=== PATIENT | female | born 1965 | race Caucasian/White ===

== ENCOUNTER 2024-04-19 14:09 | Emergency (ER) | payer MEDICAID, SELFPAY ==
[2024-04-19] VITALS (25 sets, daily range): BP systolic 80–123; BP diastolic 51–75; PULSE 102–120; TEMP 36.9; O2SAT 95–104; BMI 67.3
--- NOTE | 2024-04-19 15:03 | ECG_ITS ---
[facility] Test Date: 2024-04-19 Pat Name: MATTHEW SHINE Department: Room: - Gender: Female Coverage Analyst: : 1965 Requested By: 1860 Order Number: [id number] Reading MD: LEXI MARSH Measurements Intervals [place] Rate: 110 P: TN: QRS: QRSD: 160 T: QT: QTc: -[id number] Interpretive Statements Regular rhythm w/ RBBB, can't exclude atrial flutter. Electronically Signed On 04-19-2024 21:03:19 EST by LEXI MARSH
--- NOTE | 2024-04-19 15:06 | CT_ITS ---
[place] [id number] Patient Name: MATTHEW SHINE MRN: [id number] date: 1965 Sex: F Assigned Patient Location: ER Current Patient Location: ER Accession/Order Number: [id number] Exam Date: 04/19/2024 15:50 Report Date: 04/19/2024 16:27 At the request of: EMILY MORTON Procedure: CT chest wo con EXAMINATION: CT chest wo con, 04/19/2024 3:50 PM EST HISTORY: abn chest xray COMPARISON: Chest radiograph 08/22/2020, CT abdomen and pelvis 01/16/2021 TECHNIQUE: CT scan of the chest was performed without IV contrast. CT dose reduction technique was used, including Automated Exposure Control. FINDINGS: TUBES AND IMPLANTS: Tracheostomy tube CHEST: CHEST WALL AND LOWER NECK: Unremarkable. MEDIASTINUM AND CHRISTIAN: No evidence of bulky lymphadenopathy. BONES: No suspicious lesions. Multilevel degenerative changes of the spine. AORTA: No definite aneurysm PULMONARY ARTERIES: Pulmonary trunk appears dilated measuring approximately 3 centimeters CORONARY ARTERIES: Severe coronary artery calcifications and/or stents. HEART: Severe cardiomegaly with large pericardial effusion measuring 2.5 centimeters in thickness LUNG AND AIRWAYS: Confluent opacities seen in the left lower lobe . Patchy groundglass opacities are seen in the left upper lobe. A 7 millimeter right upper lobe subpleural nodule. PLEURA: Small left pleural effusion. UPPER ABDOMEN: No definite acute finding CT/CT chest wo con IMPRESSION: 1. Examination is moderately limited due to technical factors related to patient's body habitus. 2. Confluent airspace disease seen in the left lower lobe with patchy groundglass opacities in the left upper lobe. Small left pleural effusion. These findings are concerning for pneumonia. 3. Severe cardiomegaly with large pericardial effusion measuring 2.5 centimeters in thickness. 4. A 7 millimeter right upper lobe subpleural nodule. CT follow-up in 6-12 months is recommended per Fleischner criteria. 5. Pulmonary trunk appears dilated suggesting pulmonary hypertension. Electronically authenticated by: ETHAN LUDWIG Date: 04/19/2024 16:27
[2024-04-19 15:10] LABS: Basophils Absolute Auto 0.1 10^3/uL (0.0-0.1); Basophils Percent Auto 0.8 % (0.2-2.0); Eosinophils Absolute Auto 0.4 10^3/uL (0.0-0.7); Hematocrit 28.5 % (36.0-48.0); Hemoglobin 8.5 g/dL (12.0-16.0); Immature Granulocytes Abs Auto 0.11 10^3/uL (0.00-0.03); Immature Granulocytes Pct Auto 1.1 % (0.0-0.5); Lymphocytes Absolute Auto 0.9 10^3/uL (1.2-3.8); Lymphocytes Percent Auto 8.4 % (20.5-60.0); Mean Corpuscular HGB Conc 29.8 g/dL (29.9-35.2); Mean Corpuscular Hemoglobin 29.1 pg (26.7-34.0); Mean Corpuscular Volume 97.6 fL (81.0-99.0); Mean Platelet Volume 11.1 fL (9.5-13.5); Monocytes Absolute Auto 0.8 10^3/uL (0.3-0.8); Monocytes Percent Auto 8.3 % (1.7-12.0); Neutrophils Absolute Auto 7.8 10^3/uL (1.4-6.5); Neutrophils Percent Auto 77.4 % (43.0-75.0); Platelet Count 216 10^3/uL (150-450); Red Blood Count 2.92 10^6/uL (4.20-5.40); White Blood Count 10.1 10^3/uL (4.0-11.0)
--- NOTE | 2024-04-19 15:12 | PC.NURSE ---
Trach with mechanical vent on arrival, skin pink and warm and respirations even and non labored. Pulse Ox. 97% on vent set at 25%.
[2024-04-19 15:36] LABS: Lactate/Lactic Acid 1.4 mmol/L (0.4-2.0)
[2024-04-19 15:38] LABS: Anion Gap 18.9; BUN Creatinine Ratio 8.7; Carbon Dioxide 23.6 mmol/L (21.0-32.0); Chloride 94 mmol/L (98-107); Estimated GFR (African America 8 (>=60 mL/min/1.73m^2); Estimated GFR (Non-African Ame 7 (>=60 mL/min/1.73m^2); Glucose 134 mg/dL (74-106); Potassium 4.5 mmol/L (3.5-5.1); Sodium 132 mmol/L (136-145)
[2024-04-19 15:49] LABS: INR 1.24; Partial Thromboplastin Time 33.8 sec (22.3-36.2); Prothrombin Time 12.9 sec (9.0-11.6)
[2024-04-19 15:52] LABS: Troponin I High Sensitivity 10.1 pg/mL (4.0-51.3)
[2024-04-19] MEDS: 0.9 % SODIUM CHLORIDE 500 ML IV (16:05)
--- NOTE | 2024-04-19 16:27 | ED_ITS ---
HPI HPI - General Adult General Chief complaint: Shortness of Breath/Dyspnea Stated complaint: Respiratory distress Time Seen by Provider: 04/19/24 14:10 Source: medical record Mode of arrival: ambulance Limitations: altered mental status History of Present Illness HPI narrative: 59-year-old female to the emergency department with chief complaint of hypotension, hypoxia, missing dialysis. Patient is a severely morbidly obese vent dependent patient from [facility]. She has been a resident there for 2 years. She receives dialysis 5 days a week. She is only received a few partial treatments over the last 2 weeks per penitentiary report. She is DNRCC. Patient provides no history. Related Data Previous Rx's ?Medication ?Instructions ?Recorded levofloxacin 750 mg tablet 750 mg PO DAILY 7 days #7 tabs 04/19/24 Allergies Allergy/AdvReac Type Severity Reaction Status Date / Time fentanyl Allergy Unknown Unknown Verified 04/19/24 14:17 Gadolinium-Containing Allergy Unknown Unknown Verified 04/19/24 14:17 Contrast Medi Iodinated Contrast Media Allergy Unknown Unknown Verified 04/19/24 14:17 morphine Allergy Unknown Unknown Verified 04/19/24 14:17 piperacillin (From Zosyn) Allergy Unknown Unknown Verified 04/19/24 14:17 tazobactam (From Zosyn) Allergy Unknown Unknown Verified 04/19/24 14:17 Opioid HPI Opioid Management Most Recent Opioid Data: No Data to Display Review of Systems ROS Status of ROS unobtainable due to medical condition Exam Narrative Exam Narrative: VITALS: I have reviewed the triage vital signs. GENERAL: Chronically ill-appearing severely morbidly obese adult female with tracheostomy on ventilator NEURO: Alert. Moves all extremities. EYES: PERRL. No scleral icterus or conjunctival injection. No discharge. HENT: Normocephalic, atraumatic. Hearing is grossly intact. Nares grossly patent and without discharge. Mucous membranes moist. NECK: No JVD. Patient moves neck without restriction. Healthy appearing tracheostomy with tube in place CARDIO: Rhythm regular. Normal rate. No murmur, rub, or gallop. Pulses equal bilaterally in the upper and lower extremity. No lower extremity edema. PULM: Diminished at the bases bilaterally. GI/: Abdomen is soft and non-tender. Normoactive bowel sounds. EXTREMITIES: Symmetric muscle bulk. No joint swelling. No clubbing, cyanosis, or deformity. IO in the RLE. SKIN: Warm and dry. Normal turgor. No rash or lesions appreciated. Constitutional Vital Signs, click to edit/add: Last Vital Signs Temp 98.5 F 04/19/24 14:09 Pulse 106 H 04/19/24 16:03 Resp 15 04/19/24 16:03 BP 123/51 04/19/24 16:03 Pulse Ox 98 04/19/24 16:03 O2 Del Method Mechanical Ventilator 04/19/24 15:09 FiO2 25 04/19/24 15:09 Course Vital Signs Vital signs: Vital Signs Temperature 98.5 F 04/19/24 14:09 Pulse Rate 115 H 04/19/24 14:09 Respiratory Rate 29 H 04/19/24 14:09 Blood Pressure 106/53 04/19/24 14:09 Pulse Oximetry 95 04/19/24 14:09 Oxygen Delivery Method Mechanical Ventilator 04/19/24 14:09 Temperature 98.5 F 04/19/24 14:09 Pulse Rate 106 H 04/19/24 16:03 Respiratory Rate 15 04/19/24 16:03 Blood Pressure 123/51 04/19/24 16:03 Pulse Oximetry 98 04/19/24 16:03 Oxygen Delivery Method Mechanical Ventilator 04/19/24 15:09 Fraction of Inspired Oxygen 04/19/24 15:09 Medical Decision Making MDM Narrative Medical decision making narrative: 59-year-old female to the emergency department after nursing staff reports hypotension and hypoxia at her facility. She has not received a full course of dialysis in several days per staff. EMS placed an IO in the right tib. She received 500 cc bolus from EMS and the additional 500 cc was ordered to be continued here given the reported hypotension. She arrives a soft blood pressures. No hypoxia on her ventilator settings. While she appears chronically ill there are no other acute findings on exam. She does open her eyes and respond to manipulation however she does not participate in care otherwise. We did have to reach out several times to nursing staff at her facility to obtain her CODE STATUS paperwork. She was listed on her penitentiary sheet as a DNR comfort care. We did confirm this with a signed and dated DNR comfort care form with the patient's name and date of . It was signed by Oren Stone MD on 12/19/2023. This is reflected throughout her penitentiary paperwork as well. With the order most recently entered and electronically signed on 02/02/2024. She was seen at [facility] yesterday and received a chest x-ray and a dose of midodrine and her DNR comfort care paperwork was honored and she was returned to her facility for comfort measures. It seems that the patient's aggressive care has been continued as far as her dialysis and ventilated status. I did call and discussed with Dr. Fletcher who is listed as a physician who cares for her at her facility. Their concern was that she was septic from pneumonia. He requested that if she is septic she be transferred to a tertiary care facility for ICU care. She has no leukocytosis. Her hemoglobin is adequate. Renal function is at baseline. There is no significant electrolyte abnormality. Her lactate is normal. Her troponin is normal. Her EKG is without evidence of ischemia. CT scan concerning for pneumonia in the left lower lobe which is already known from a chest x-ray at her facility. She also has a pericardial effusion and findings of congestive heart failure as well as pulmonary hypertension which are chronic in nature. Repeat evaluation 1716: Her blood pressure is 102/65. She is 99% on 25% FiO2 on the vent. Given that this patient has an active DNR comfort care we will honor this. We provided initial assessment and basic medical care. She is stable from a respiratory standpoint. She does not appear to be in any discomfort at this time. We will treat her with Levaquin. She will be discharged back to her facility for continued comfort care. It is my recommendation that hospice/palliative care be consulted for this patient at her facility and her DNRCC status be honored. She will be discharged back on Levaquin. Medical Records Medical records reviewed: Yes I reviewed the patient's medical records Lab Data Lab results reviewed: Yes I reviewed the patient's lab results Labs: Lab Results 04/19/24 04/19/24 Range/Units 15:00 15:15 WBC 10.1 (4.0-11.0) 10^3/uL RBC 2.92 L (4.20-5.40) 10^6/uL Hgb 8.5 L (12.0-16.0) g/dL Hct 28.5 L (36.0-48.0) % MCV 97.6 (81.0-99.0) fL MCH 29.1 (26.7-34.0) pg MCHC 29.8 L (29.9-35.2) g/dL RDW 17.0 H (11.0-15.0) % Plt Count 216 (150-450) 10^3/uL MPV 11.1 (9.5-13.5) fL Neut % (Auto) 77.4 H (43.0-75.0) % Lymph % (Auto) 8.4 L (20.5-60.0) % [place] % (Auto) 8.3 (1.7-12.0) % Eos % (Auto) 4.0 (0.9-7.0) % Baso % (Auto) 0.8 (0.2-2.0) % Neut # (Auto) 7.8 H (1.4-6.5) 10^3/uL Lymph # (Auto) 0.9 L (1.2-3.8) 10^3/uL [place] # (Auto) 0.8 (0.3-0.8) 10^3/uL Eos # (Auto) 0.4 (0.0-0.7) 10^3/uL Baso # (Auto) 0.1 (0.0-0.1) 10^3/uL Abs Immat Gran (auto) 0.11 H (0.00-0.03) 10^3/uL Imm/Tot Granulo (auto) 1.1 H (0.0-0.5) % PT 12.9 H (9.0-11.6) sec INR 1.24 APTT 33.8 (22.3-36.2) sec Sodium 132 L (136-145) mmol/L Potassium 4.5 (3.5-5.1) mmol/L Chloride 94 L (98-107) mmol/L Carbon Dioxide 23.6 (21.0-32.0) mmol/L Anion Gap 18.9 BUN 55.0 H (7.0-18.0) mg/dL Creatinine 6.34 H* (0.55-1.02) mg/dL Est GFR ( Amer) 8 L (>=60 mL/min/1.73m^2) Est GFR (Non-Af Amer) 7 L (>=60 mL/min/1.73m^2) BUN/Creatinine Ratio 8.7 Glucose 134 H (74-106) mg/dL Lactate 1.4 (0.4-2.0) mmol/L Calcium 8.0 L (8.5-10.1) mg/dL Troponin I High Sens 10.1 (4.0-51.3) pg/mL Blood Type O Positive Antibody Screen Negative Imaging Data CT scan - chest: Attestation: I have reviewed the pertinent imaging results. Radiologist's impression: ITS Impressions Chest CT 04/19/24 15:06 IMPRESSION: 1. Examination is moderately limited due to technical factors related to patient's body habitus. 2. Confluent airspace disease seen in the left lower lobe with patchy groundglass opacities in the left upper lobe. Small left pleural effusion. These findings are concerning for pneumonia. 3. Severe cardiomegaly with large pericardial effusion measuring 2.5 centimeters in thickness. 4. A 7 millimeter right upper lobe subpleural nodule. CT follow-up in 6-12 months is recommended per Fleischner criteria. 5. Pulmonary trunk appears dilated suggesting pulmonary hypertension. Electronically authenticated by: ETHAN LUDWIG Date: 04/19/2024 16:27 ECG Data Attestation: I personally reviewed and interpreted this ECG as follows: (Normal sinus rhythm at a rate of 112. No STEMI. Mildly prolonged QTc) Critical Care Time Critical Care Time Critical Care Time: Yes Total Critical Care Time: 35 Attestation: Critical Care Procedure Note Authorized and Performed by: Bakari Parekh DO Total critical care time: 35 min Due to a high probability of clinically significant, life threatening deterioration, the patient required my highest level of preparedness to intervene emergently and I personally spent this critical care time directly and personally managing the patient. This critical care time included obtaining a history; examining the patient; pulse oximetry; ordering and review of studies; arranging urgent treatment with development of a management plan; evaluation of patient's response to treatment; frequent reassessment; and, discussions with other providers. This critical care time was performed to assess and manage the high probability of imminent, life-threatening deterioration that could result in multi-organ failure. It was exclusive of separately billable procedures and treating other patients and teaching time. Please see MDM section and the rest of the note for further information on patient assessment and treatment. Discharge Plan Discharge Chief Complaint: Shortness of Breath/Dyspnea Clinical Impression: Pneumonia, Need for comfort care, DNR (do not resuscitate), Pericardial effusion Patient Disposition: Home, Self-Care Condition: Fair Mode of Transportation: EMS Prescriptions / Home Meds: New levofloxacin 750 mg tablet 750 mg PO DAILY 7 Days Qty: 7 0RF Print Language: Mongolian Instructions: Community Acquired Pneumonia (ED) Referrals: JULIANO LOCKE [Primary Care Provider] - 1 week
[2024-04-19] MEDS: ALBUTEROL SULFATE 2.5 MG/3 ML VIAL NEB IH (20:30)
--- NOTE | 2024-04-19 22:02 | PC.NURSE ---
Report called by Aye Cano
== END 2024-04-19 22:03 | disposition home or self-care (01) ==
PROVIDERS: Emergency Provider Student in an Organized Health Care Education/Training Program
DX: J18.9 Pneumonia, unspecified organism (principal); I31.39 Other pericardial effusion (noninflammatory); E66.01 Morbid (severe) obesity due to excess calories; Z66 Do not resuscitate; Z99.2 Dependence on renal dialysis; Z93.0 Tracheostomy status; Z99.11 Dependence on respirator [ventilator] status; Z87.01 Personal history of pneumonia (recurrent); I50.9 Heart failure, unspecified; I27.20 Pulmonary hypertension, unspecified; Z68.44 Body mass index [BMI] 60.0-69.9, adult
CPT/HCPCS: 36415; 71250; 80048; 82805; 83605; 84484; 85025; 85610; 85730; 86850; 86900; 86901; 87040; 93005; 94002; 94640; 99285

== ENCOUNTER 2024-12-03 08:20 | Outpatient (OUT) | payer MEDICAID, SELFPAY ==
--- OUTSIDE RECORDS SUMMARY | 2020-05-21 10:10 | XMS_ITS | Continuity of Care Document ---
Author Organization [address] [place] [address] Address [address] [place] [address] Phone Care Team Providers Care Ballet Professor Name Role Phone Re Hunt NP Unavailable Unavailable Allergies, Adverse Reactions, Alerts Substance Reaction Status Criticality Gadolinium-Containing Contrast Media Acti ve No Information Iodinated Contrast Media Active No Information morphine Active No Information iodine Active No Information Medications Medication Instructions Dosage Effective Dates (start - stop) Status Comments trazodone 100 mg tablet - Ac tive tramadol 50 mg tablet - Acti ve phenytoin 50 mg chewable tablet - Active ondansetron HCl 4 mg tablet - Active nystatin 100,000 unit/gram topical powder - Active metoprolol tartrate 100 mg tablet - Active lorazepam 1 mg tablet - Acti ve levetiracetam 500 mg tablet - Active ipratropium 0.5 mg-albuterol 3 mg (2.5 mg base)/3 mL nebulization soln - Active gabapentin 100 mg capsule - Active ClearLax 17 gram/dose oral powder - Active albuterol sulfate HFA 90 mcg/actuation aerosol inhaler - Active sodium chloride 0.9 % intravenous solution - Active nitroglycerin 0.4 mg sublingual tablet - Active cefepime 2 gram solution for injection - Active bumetanide 0.25 mg/mL injection solution - Active piperacillin-tazobactam 3.375 gram intravenous solution - Active ondansetron 4 mg disintegrating tablet - Active bumetanide 1 mg tablet - Act kelly Aranesp 60 mcg/0.3 mL (in polysorbate) injection syringe - Active trazodone 50 mg tablet - kelly risperidone 1 mg tablet - Ac tive pantoprazole 40 mg tablet,delayed release - Active multivitamin tablet - Active levothyroxine 88 mcg tablet - Active isosorbide mononitrate ER 60 mg tablet,extended release 24 hr - Active hydralazine 10 mg tablet - A ctive fluoxetine 20 mg capsule - A ctive fexofenadine 60 mg tablet - Active DOK 100 mg capsule - Active buspirone 10 mg tablet - Act kelly aspirin 81 mg tablet,delayed release - Active cyclobenzaprine 10 mg tablet take 1 tablet by oral route 3 times every day 10 MG - Active Levemir 100 unit/mL subcutaneous solution inject by subcutaneous route per prescriber's instructions. Insulin dosing requires individualization. - Active Problems Condition Type Effective Dates (start - stop) [facility] Status Comments No Known Problems Procedures Procedure Date REMOVE IMPACTED EAR WAX DEBRIDE NAIL 6 OR MORE NURSING FAC CARE SUBSEQ DEBRIDE NAIL 1-5 TRIM NAIL(S) NURSING FAC CARE SUBSEQ Diabetic Foot Exam Performed DEBRIDEMENT OF NAIL(S) BY ANY METHOD(S); one TO five trimming of dystrophic nails, any number Subsequent Nursing Facility Care 2019 DEBRIDEMENT OF NAIL(S) BY ANY METHOD(S); one TO five trimming of dystrophic nails, any number Subsequent Nursing Facility Care 2018 DEBRIDEMENT OF NAIL(S) BY ANY METHOD(S); one TO five trimming of dystrophic nails, any number Diabetic Foot Exam Performed DEBRIDEMENT OF NAIL(S) BY ANY METHOD(S); one TO five trimming of dystrophic nails, any number Subsequent Nursing Facility Care 2018 DEBRIDEMENT OF NAIL(S) BY ANY METHOD(S); six OR MORE DEBRIDEMENT OF NAIL(S) BY ANY METHOD(S); six OR MORE Subsequent Nursing Facility Care 2017 DEBRIDEMENT OF NAIL(S) BY ANY METHOD(S); six OR MORE DEBRIDEMENT OF NAIL(S) BY ANY METHOD(S); six OR MORE DEBRIDEMENT OF NAIL(S) BY ANY METHOD(S); six OR MORE Ophthalmological services, E/M Sam biswas, Comp, 1+ visit DEBRIDEMENT OF NAIL(S) BY ANY METHOD(S); six OR MORE FITTING OF SPECTACLES, EXCEPT FOR APHAKI A; MONOFOCAL FRAMES, PURCHASES Spherocylinder, single vision, plano to +- 4.00d sphere, per lens Ophthalmological services, E /M New Patient,Comprehensive,one or more visits Diabetic Foot Exam Performed DEBRIDEMENT OF NAIL(S) BY ANY METHOD(S); six OR MORE Subsequent Nursing Facility Care 2016 Advance Directives Directive Yes / No Effective Date File Name No Information Encounters Encounter Description Practice Location Reason(s) For Visit Diagnoses Date Provider Providers Copied on Encounter [facility] [address], [place], [place], [id number] , [place] tel:[phone] [facility] ear care exam (chief complaint) Impacted cerumen, right ear 1 Juan Jadrienne SalehRe. [address] [facility], [address], [place], [place], [id number], . tel:[phone] [facility] [address], [place], [place], [id number] , [place] tel:[phone] [facility] No Information 1 Juan Jadrienne SalehRe. [address] [facility], [address], [place], [place], [id number], [place]. tel:[phone] NURSING FAC CARE SUBSEQ [facility] [address], [place], [place], [id number] , [place] tel:[phone] [facility] Tinea unguiumType 2 diabetes mellitus with diabetic neuropathy, unspOther hammer toe(s) (acquired), left footOther hammer toe(s) (acquired), right foot Dec- 0 [facility]. [address] [facility], [address], [place], [place], [id number], [place]. tel:[phone] NURSING FAC CARE SUBSEQ [facility] [address], [place], [place], [id number] , [place] tel:[phone] [facility] Nail dystrophyTinea unguiumOther specified peripheral vascular diseasesType 2 diabetes mellitus without complicationsL kika term (current) use of insulinXerosis cutisType 2 diabetes mellitus with oth circulatory complications Sep- [address] [facility], [address], [place], [place], [id number], [place]. tel:[phone] Referring Provider: Ben Bernal. Subsequent Nursing Facility Care [facility] [address], [place], [place], [id number] , [place] tel:[phone] [facility] [place] Xerosis cutisTinea unguiumNail dystrophyOther specified peripheral vascular diseasesLong term (current) use of insulinType 2 diabetes mellitus with diabetic neuropathy, unspType 2 diabetes mellitus with oth circulatory complications Jun-0 [address] [facility], [address], [id number], . tel:[phone] Referring Provider: Ben Bernal. [facility] [address] [place] [address], [id number] , tel:[phone] [facility] senior living (current) use of insulinType 2 diabetes mellitus without complicationsN ail dystrophyOther specified peripheral vascular diseasesTinea unguiumType 2 diabetes mellitus with oth circulatory complications [address] [facility], [address], [id number], . tel:[phone] Referring Provider: Ben Bernal. [facility] [address] [place] [address], [id number] , tel:[phone] [facility] Tinea unguiumOther specified peripheral vascular diseasesLong term (current) use of insulinType 2 diabetes mellitus without complicationsT ype II diabetes mellitus with other circulatory complicationsT ype 2 diabetes mellitus with diabetic neuropathy, unspNail dystrophy [address] [facility], [address], [id number], . tel:[phone] Referring Provider: Ben Bernal. Subsequent [facility] [address], [place], [place], [id number] , tel:[phone] [facility] Tinea unguiumOther specified peripheral vascular diseasesLong term (current) use of insulinType II diabetes mellitus with other circulatory complications [address] [facility], [address], [id number], . tel:[phone] Referring Provider: Ben Bernal. [facility] [address], [place], [place], [id number] , tel:[phone] [facility] Tinea unguiumOther specified peripheral vascular diseasesLong term (current) use of insulinType II diabetes mellitus with other circulatory complicationsT ype 2 diabetes mellitus with diabetic neuropathy, unsp May- [address] [facility], [address], [id number], . tel:[phone] Referring Provider: Ben Bernal. Subsequent Nursing Facility Care [facility] [address], [place], [place], [id number] , tel: [phone] [facility] [place] Tinea pedisTinea unguiumOther specified peripheral vascular diseasesLong term (current) use of insulinType 2 diabetes mellitus with diabetic neuropathy, unsp [address] [facility], [address], [id number], [place]. tel:[phone] Referring Provider: Ben Bernal. [facility] [address], [place], [place], [id number] , [place] tel: [phone] [facility] [place] Tinea unguiumOther specified peripheral vascular diseasesType II diabetes mellitus with other circulatory complicationsL kika term (current) use of insulin [address] [facility], [address], [id number], [place]. tel:[phone] Referring Provider: Ben Bernal. [facility] [address], [place], [place], [id number] , [place] tel: [phone] [facility] [place] Tinea unguiumOther specified peripheral vascular diseasesType II diabetes mellitus with other circulatory complicationsL kika term (current) use of insulin [address] [facility], [address], [id number], [place]. tel:[phone] Referring Provider: Ben Bernal. [facility] [address], [place], [place], [id number] , [place] tel:[phone] [facility] [place] Tinea unguiumPain in left toe(s)Pain in right toe(s)Other specified peripheral vascular diseases [address] [facility], [address], [place], [place], [id number], . tel:[phone] Referring Provider: Ben Bernal. [facility] [address], [place], [place], [id number] , [place] tel:[phone] [facility] decreased vision (chief complaint) Age-related nuclear cataract, bilateralType 2 diabetes mellitus without complicationsC hanges in retinal vascular appearance, bilateral 8 Uzma Polo. , [place], [place]. Referring Provider: Ben Bernal. [facility], [address], [place], [place], [id number] , [place] tel:[phone] [facility] Tinea unguiumPain in left toe(s)Pain in right toe(s)Other specified peripheral vascular diseases Fe [address] [facility], [address] [facility], [place], [place], [id number], [place]. tel:[phone] Referring Provider: Margarito Keita. [facility], [address], [place], [place], [id number] , [place] tel:[phone] [facility] Hypermetropia, bilateral Jan- 7 Den Fan. . Referring Provider: Ben Bernal. [facility], [address], [place], [place], [id number] , [place] tel:[phone] [facility] No Information 7 Maribel Rivas. [address] [facility], [address], [place], [place], [id number], [place]. tel:[phone] Referring Provider: Ben Bernal. Subsequent Nursing Facility Care [facility], [address], [place], [place], [id number] , [place] tel:[phone] [facility] Type II diabetes mellitus with other circulatory complicationsO ther specified peripheral vascular diseasesPain in left toe(s)Pain in right toe(s)Onychomy cosisOnychogry phosis Oct-0 [address] [facility], [address], [place], [place], [id number], [place]. tel:[phone] Referring Provider: Ben Bernal. Family History Family Member Type Diagnosis Age At Onset No Information Payers Payer name Insurance type Covered green party ID Manav lilly(s) [facility] Dual Medicaid CI [id number] Social History Type Description Quantity Date Captured Comments Alcohol Use Details Unknown Caffeine Use Details Unknown Tobacco Use Status No Information Smoking Status No Information Sex Female Chief Complaint And Reason For Visit From encounter dated '05/21/2020 14:10'. ear care exam (chief complaint) Reason For Referral Reason For Referral No Information Plan Of Treatment Date Type Action Status Patient Education Earwax Blockage: Care I nstructions completed Patient Education Diabetes Foot Health: C are Instructio~ completed Patient Education Diabetes Foot Health: C are Instructio~ completed History Of Present Illness Encounter Date Complaint History Of Prese nt Illness decreased vision The 52 year old female presents for evaluation of decreased vision in the right eye and left eye. It started about 4 month(s) ago. The onset was progressive. It affects both near and far vision. The symptom is constant. The condition is worsening. Patient denies eye pain. Functional Status Date Functional Assessmen t No Information Instructions Date Instruction Additional Infor nir Performed Cerumen Re moval as per protocol, right ear cleared. Follow up in 6-9 months for reevaluation for chronic cerumen impaction. Related to Impacted cerumen, right ear Debridement of toena ils described above in length and thickness using a nail nipper without incident to remedy the pain and decrease thickness and to prevent future pathology such as pain and ingrown toenails. RTC 2 to 3 months for care. Related to Tinea unguium Monitor blood glucos e levels, perform daily foot checks, recommend DM shoes Related to Type 2 diabetes mellitus with diabetic neuropathy, unsp Monitor blood glucos e levels, perform daily foot checks, recommend DM shoes Related to Other hammer toe(s) (acquired), left foot Monitor blood glucos e levels, perform daily foot checks, recommend DM shoes Related to Other hammer toe(s) (acquired), right foot will continue to re- evaluate for recurrence at future exams. 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 Due to the reduced vascular status of the patient I also trimmed the normal nails. I will follow up in 2-3 months for continued at risk foot care. When the subungual debris was removed on the left 1 and 4th digits there was a small amount of bleeding, hemostasis achieved with lumicaine. No further treatment. Related to Nail dystrophy The patient was exam ined and assessed for all class findings as well as all other conditions documented. I will follow up in 2-3 months for continued at risk foot care. I debrided the thickened mycotic nails in both length and thickness manually with a nail clipper. I will follow up in 2-3 months for continued at risk foot care. Related to Tinea unguium I will f/u every 12 months with a routine diabetic foot exam, or sooner with new pedal concerns. Related to Type 2 diabetes mellitus with diabetic neuropathy, [facility] RX - Lac Hydrin 12% cream to feet qd 12 weeks. 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 I will follow up in 2-3 months for continued at risk foot care. I debrided the thickened mycotic nails in both length and thickness manually with a nail clipper. I will follow up in 2-3 months for continued at risk foot care. Related to Tinea unguium I trimmed the thinne r dystrophic nails in length with clippers manually. Due to the reduced vascular status of the patient I also trimmed the normal nails. I will follow up in 2-3 months for continued at risk foot care. Related to Nail dystrophy I will f/u every 12 months with a routine diabetic foot exam, or sooner with new pedal concerns. Related to Type 2 diabetes mellitus without complications I trimmed the thinne r dystrophic nails in length with clippers manually. Due to the reduced vascular status of the patient I also trimmed the normal nails. I will follow up in 2-3 months for continued at risk foot care. Related to Nail dystrophy The patient was exam ined and assessed for all class findings as well as all other conditions documented. I will follow up in 2-3 months for continued at risk foot care. I debrided the thickened mycotic nails in both length and thickness manually with a nail clipper. I will follow up in 2-3 months for continued at risk foot care. Related to Tinea unguium I trimmed the thinne r dystrophic nails in length with clippers manually. Due to the reduced vascular status of the patient I also trimmed the normal nails. I will follow up in 2-3 months for continued at risk foot care.Small siva to the left distal 2nd digit with debridement, hemostasis attained, staff advised. Related to Nail dystrophy The patient was exam ined and assessed for all class findings as well as all other conditions documented. I will follow up in 2-3 months for continued at risk foot care. I debrided the thickened mycotic nails in both length and thickness manually with a nail clipper. I will follow up in 2-3 months for continued at risk foot care. Related to Tinea unguium The patient was exam ined and assessed for all class findings as well as all other conditions documented. I will follow up in 2-3 months for continued at risk foot care. I debrided the thickened mycotic nails in both length and thickness manually with a nail clipper. I trimmed the thinner mycotic nails in length with clippers manually. I will follow up in 2-3 months for continued at risk foot care. Related to Tinea unguium I will f/u every 12 months with a routine diabetic foot exam, or sooner with new pedal concerns. Related to Type II diabetes mellitus with other circulatory complications The patient was exam ined and assessed for all class findings as well as all other conditions documented. I will follow up in 2-3 months for continued at risk foot care. I debrided the mycotic nails in both length and thickness manually with a nail clipper. I will follow up in 2-3 months for continued at risk foot care. Related to Tinea unguium Rec lotrimin AF crea m to pedal skin and nails skin bid 6 weeks Related to Tinea pedis The patient was exam ined and assessed for all class findings as well as all other conditions documented. I will follow up in 2-3 months for continued at risk foot care. I debrided the mycotic nails in both length and thickness manually with a nail clipper. I will follow up in 2-3 months for continued at risk foot care. Related to Tinea unguium The patient was exam ined and assessed for all class findings as well as all other conditions documented. I will follow up in 2-3 months for continued at risk foot care. I debrided the mycotic nails in both length and thickness manually with a nail clipper. I will follow up in 2-3 months for continued at risk foot care. Related to Tinea unguium The patient was exam ined and assessed for all class findings as well as all other conditions documented. I will follow up in 2-3 months for continued at risk foot care. I debrided the mycotic nails in both length and thickness manually with a nail clipper. I will follow up in 2-3 months for continued at risk foot care. Related to Tinea unguium The patient was exam ined and assessed for all class findings as well as all other conditions documented. I will follow up in 2-3 months for continued at risk foot care. I debrided the mycotic nails in both length and thickness manually with a nail clipper. I will follow up in 2-3 months for continued at risk foot care. Related to Tinea unguium Follow up in 6-9 mon ths for Dilated Fundus Exam. Related to Type 2 diabetes mellitus without complications Impression/Plan - No active diabetic retinopathy present in either eye. We will monitor at regular intervals. Related to Type 2 diabetes mellitus without complications Follow up - Follow u p in 6-9 months for Dilated Fundus Exam. Related to Type 2 diabetes mellitus without complications Impression/Plan - Ca taracts are visually significant; Please schedule for cataract evaluation with [facility] of facility choice. Related to Age-related nuclear cataract, bilateral Impression/Plan - Re tinal vascular attenuation and atherosclerosis present. We will monitor. Fundus Photo. Related to Changes in retinal vascular appearance, bilateral The patient was exam ined and assessed for all class findings as well as all other conditions documented. I will follow up in 2-3 months for continued at risk foot care. I debrided the mycotoic nails in both length and thickness manually with a nail clipper. I will follow up in 2-3 months for continued at risk for care.Please include the following statement on this patient's monthly Physician Order Sheet: This patient is currently receiving care from the Speeder Worker. The primary Care physician has reviewed the most current consult note and plan of care, has evaluated the patient, and agrees with the medical necessity of both the care delivered and the proposed plan of care. If care for this patient is to be discontinued, [facility] will be notified immediately and this order discontinued. Related to Tinea unguium I will f/u every 6 m onths with a routine diabetic foot exam, or sooner with new pedal concerns. Related to Type II diabetes mellitus with other circulatory complications I will f/u every 6 m onths with a routine diabetic foot exam, or sooner with new pedal concerns. Related to Onychomycosis Assessments Type Assessment Date assessment Impacted cerumen, right ear impression Right ear complete c erumen impactionNo impaction of left canal. Patient Care Teams Name Effective Dates (start - stop) Status Members No Information
--- OUTSIDE RECORDS SUMMARY | 2024-11-27 04:45 | XMS_ITS ---
Author Organization [facility] Address [address] [place] [id number] Care Team Providers Care Assistant Offset Press Operator Name Role Phone MAXIMO MOSCOSO Unavailable [phone] ERNIE HARE Unavailable [phone] REASON FOR VISIT chronic respiratory failure, tracheostomy Encounters Encounter Location Date Provider Diagnosis [place] [address] [phone] 11/27/2024 ERNIE HARE Chronic respirator y failure, unspecified whether with hypoxia or hypercapnia J96.10 ; Ventilator dependence Z99.11 ; Tracheostomy status Z93.0 ; Chronic bronchitis, unspecified chronic bronchitis type J42 ; Morbidly obese E66.01 ; Obstructive sleep apnea (adult) (pediatric) G47.33 ; Morbid (severe) obesity with alveolar hypoventilation E66.2 and Chronic pulmonary edema J81.1 Assessments Encounter Date Diagnosis (ICD Code) Assessment Notes Treatment Notes Treatment Clinical Notes Section Notes 11/27/2024 Chronic respiratory failure, unspecified whether with hypoxia or hypercapnia (ICD-10 - J96.10) 11/27/2024 Ventilator dependence (ICD-10 - Z99.11) 11/27/2024 Tracheostomy status (ICD-10 - Z93.0) 11/27/2024 Chronic bronchitis, unspecified chronic bronchitis type (ICD-10 - J42) 11/27/2024 Morbidly obese (ICD-10 - E66.01) 11/27/2024 Obstructive sleep apnea (adult) (pediatric) (ICD-10 - G47.33) 11/27/2024 Morbid (severe) obesity with alveolar hypoventilation (ICD-10 - E66.2) 11/27/2024 Chronic pulmonary edema (ICD-10 - J81.1) 11/27/2024 Other Seen in collaboration and discussed plan of care with Dr. Maximo Moscoso Plan Of Treatment Treatment Notes Assessment Notes Other Seen in collaboratio n and discussed plan of care with Dr. Maximo Moscoso Next Appt Details Follow Up: 2 - 3 Days, Reaso n: Progress Notes * Bell NEALDOB:1965 (59 yo F)Acc No.[id number]:11/27/2024 Progress Notes Patient: Bell REYES Appointment Provider: Derik Hare NP :1965 A ge:59 Y S ex:Female Date:11/27/2024 Phone: Address:[address] [facility], [id number] Subjective: * Chief Complaints: * C hronic respiratory failureTracheostomy * HPI: C onstitutional: Continuing to see the patient for pulmonary management. Performed bedside rounds with the respiratory therapist today. Discussed the patients pulmonary status and current orders. Discussed concerns or needs by RT. Continue the orders at this time. Free from distress. Hemodialysis today. No RT concerns. Impression: Chronic hypoxic Respiratory Failure, dependent on ventilator Tracheostomy Chronic bronchitis Morbidly obese FARZAD / OHS Pulmonary Vascular Congestion Hx Acinetobacter in sputum Nausea Plan: Ventilator support ATC, no weaning, A/C-VC 20, 500, 8, 35% Albuterol PRN Bag lavage suctioning PRN Nephrology following, hemodialysis patient Post Bronchoscopy at [facility] with Dr Moscoso 04/27/2024 Zofran PRN DNRCC BMI reviewed, encourage weight loss and healthy diet with exercise Will continue to monitor pulmonary status. * ROS: A ll Other Systems: Review of Systems (ROS) A ll others negative except those mentioned in HPI,See HPI for details. * Medical History: * Surgical History: * Hospitalization/Major Diagno stic Procedure: * Medications: Objective: * Vitals: * Examination: G eneral Examination: GENERAL APPEARANCE: o bese. ORAL CAVITY: m ucosa moist. THROAT: n ormal. NECK/THYROID: t cirilo c/d/i. HEART: n o murmurs, regular rate and rhythm, S1, S2 normal.? LUNGS: d iminished breath sounds throughout. ABDOMEN: o bese. EXTREMITIES: g eneralized edema. NEUROLOGIC: a lert and oriented. Assessment: * Assessment: 1. C hronic respiratory failure, unspecified whether with hypoxia or hypercapnia - J96.10 (Primary) 2 . V entilator dependence - Z99.11 3 . T racheostomy status - Z93.0 4 . C hronic bronchitis, unspecified chronic bronchitis type - J42 5. M orbidly obese - E66.01 6 . O bstructive sleep apnea (adult) (pediatric) - G47.33 7 . M orbid (severe) obesity with alveolar hypoventilation - E66.2 8 . C hronic pulmonary edema - J81.1 Plan: * Treatment: * Procedure Codes: * Follow Up: 2 - 3 Days * * Sign off status: Completed true * Appointment Provider: Derik Hare NP Date: 11/27/2024 Generated for Tara duran/Morris/Moreno on: 0 12/03/2024 08:23 AM EDT History and Physical Notes * HPI (History of Present Illness) Category Sub-Category Detail Notes Category Not es Constitutional Continuing to see the patient for pulmonary management. Performed bedside rounds with the respiratory therapist today. Discussed the patients pulmonary status and current orders. Discussed concerns or needs by RT. Continue the orders at this time. Free from distress. Hemodialysis today. No RT concerns. Impression: Chronic hypoxic Respiratory Failure, dependent on ventilator Tracheostomy Chronic bronchitis Morbidly obese FARZAD / OHS Pulmonary Vascular Congestion Hx Acinetobacter in sputum Nausea Plan: Ventilator support ATC, no weaning, A/C-VC 20, 500, 8, 35% Albuterol PRN Bag lavage suctioning PRN Nephrology following, hemodialysis patient Post Bronchoscopy at [facility] with Dr Moscoso 04/27/2024 Jesika PRN DNRCC BMI reviewed, encourage weight loss and healthy diet with exercise Will continue to monitor pulmonary status Examination Category Sub-Category Detail Notes Category Not es General Examination GENERAL APPEARANCE: obese THROAT: normal NECK/THYROID: trach c/d/i HEART: no murmurs, regular rate and rhythm, S1, S2 normal LUNGS: diminished breath so unds throughout ABDOMEN: obese NEUROLOGIC: alert and oriented EXTREMITIES: generalized edema ORAL CAVITY: mucosa moist
--- OUTSIDE RECORDS SUMMARY | 2024-11-29 05:30 | XMS_ITS ---
Author Organization [facility] Address [address] [place] [phone] Care Team Providers Care Finished Stock Inspector Name Role Phone MAXIMO MOSCOSO Unavailable [phone] MELYSSA DEY Unavailable [phone] REASON FOR VISIT chronic respiratory failure, tracheostomy Encounters Encounter Location Date Provider Diagnosis [place] [address] [phone] 11/29/2024 MELYSSA DEY Chronic respirator y failure, unspecified whether with [...] Treatment Notes Treatment Clinical Notes Section Notes 11/29/2024 Chronic respiratory failure, unspecified whether with hypoxia or hypercapnia (ICD-10 - J96.10) 11/29/2024 Ventilator dependence (ICD-10 - Z99.11) 11/29/2024 Tracheostomy status (ICD-10 - Z93.0) 11/29/2024 Chronic bronchitis, unspecified chronic bronchitis type (ICD-10 - J42) 11/29/2024 Morbidly obese (ICD-10 - E66.01) 11/29/2024 Obstructive sleep apnea (adult) (pediatric) (ICD-10 - G47.33) 11/29/2024 Morbid (severe) obesity with alveolar hypoventilation (ICD-10 - E66.2) 11/29/2024 Chronic pulmonary edema (ICD-10 - J81.1) 11/29/2024 Other Seen in collaboration and discussed plan of care with Dr. Maximo Moscoso Plan Of Treatment Treatment Notes Assessment Notes Other Seen in collaboratio n and discussed plan of care with Dr. Maximo Moscoso Next Appt Details Follow Up: 2 - 3 Days, Reaso n: Progress Notes * Bell NEALDOB:1965 (59 yo F)Acc No.[id number]:11/29/2024 Progress Notes Patient: Bell REYES Appointment Provider: Darlene DEY NP :1965 A ge:59 Y S ex:Female Date:11/29/2024 Phone: Address:[address] [facility], [place], [phone] Subjective: * Chief Complaints: * C hronic respiratory failureTracheostomy * HPI: C onstitutional: Continuing to see the patient for pulmonary management. Evaluated patients pulmonary status today with the respiratory therapist. Discussed residents current pulmonary status, orders, and plan of care. Physical examination unchanged from baseline. Resident is resting in HD unit, on the vent. Impression: Chronic hypoxic Respiratory Failure, dependent on ventilator Tracheostomy Chronic bronchitis Morbidly obese FARZAD / OHS Pulmonary Vascular Congestion Hx Acinetobacter in sputum Plan: Ventilator support ATC, no weaning, A/C-VC 20, 500, 8, 35% Albuterol PRN Bag lavage suctioning PRN Nephrology following, hemodialysis patient Post Bronchoscopy at [facility] with Dr Moscoso 04/27/2024 Zofran PRN [...] off status: Completed true * Appointment Provider: Darlene DEY NP Date: 0 11/29/2024 Generated for Tara duran/Morris/Moreno on: 0 12/03/2024 08:23 AM EDT History and Physical Notes * HPI (History of Present Illness) Category Sub-Category Detail Notes Category Not es Constitutional Continuing to see the patient for pulmonary management. Evaluated patients pulmonary status today with the respiratory therapist. Discussed residents current pulmonary status, orders, and plan of care. Physical examination unchanged from baseline. Resident is resting in HD unit, on the vent. Impression: Chronic hypoxic Respiratory Failure, dependent on ventilator Tracheostomy Chronic bronchitis Morbidly obese FARZAD / OHS Pulmonary Vascular Congestion Hx Acinetobacter in sputum Plan: Ventilator support ATC, no weaning, A/C-VC 20, 500, 8, 35% Albuterol PRN Bag lavage suctioning PRN Nephrology following, hemodialysis patient Post Bronchoscopy at [facility] with Dr Moscoso 04/27/2024 Jaimeefradriano PRN DNRCC BMI reviewed, encourage weight loss [...]
--- OUTSIDE RECORDS SUMMARY | 2024-12-02 05:00 | XMS_ITS ---
Author Organization [facility] Address [address] [place] [phone] Care Team Providers Care Histology Aide Name Role Phone MAXIMO MOSCOSO Unavailable [phone] REASON FOR VISIT chronic respiratory failure, tracheostomy Encounters Encounter Location Date Provider Diagnosis [place] [address] [phone] 12/02/2024 MAXIMO MOSCOSO Chronic respirator y failure, unspecified whether with [...] Treatment Notes Treatment Clinical Notes Section Notes 12/02/2024 Chronic respiratory failure, unspecified whether with hypoxia or hypercapnia (ICD-10 - J96.10) 12/02/2024 Ventilator dependence (ICD-10 - Z99.11) 12/02/2024 Tracheostomy status (ICD-10 - Z93.0) 12/02/2024 Chronic bronchitis, unspecified chronic bronchitis type (ICD-10 - J42) 12/02/2024 Morbidly obese (ICD-10 - E66.01) 12/02/2024 Obstructive sleep apnea (adult) (pediatric) (ICD-10 - G47.33) 12/02/2024 Morbid (severe) obesity with alveolar hypoventilation (ICD-10 - E66.2) 12/02/2024 Chronic pulmonary edema (ICD-10 - J81.1) Plan Of Treatment Next Appt Details Follow Up: 2 - 3 Days, Reaso n: Progress Notes * Bell NEALDOB:1965 (59 yo F)Acc No.[id number]:12/02/2024 Progress Notes Patient: Bell REYES Provider: Nancy Moscoso MD :1965 A ge:59 Y S ex:Female Date:12/02/2024 Phone: Address:[address] [place] [address], [facility], [phone] Subjective: * Chief Complaints: * 1 . Chronic respiratory failure. 2. Tracheostomy. * HPI: C onstitutional: Continuing to see the patient for pulmonary management. Evaluated patient in the facility today with staff. Reviewed chart, vital signs, and any new orders. Discussed pulmonary status with the nurse and RT. Physical examination unchanged. No new pulmonary concerns. Continue current orders as written. Impression: Chronic hypoxic Respiratory Failure, dependent on ventilator Tracheostomy Chronic bronchitis Morbidly obese FARZAD / OHS Pulmonary Vascular Congestion Hx Acinetobacter in sputum Nausea Plan: Ventilator support ATC, no weaning, A/C-VC 20, 500, 8, 35% Albuterol PRN Bag lavage suctioning PRN Nephrology following, hemodialysis patient Post Bronchoscopy at [facility] with Dr Moscoso 04/27/2024 Zofran PRN DNRCC BMI reviewed, encourage weight loss and healthy diet with exercise Will continue to monitor pulmonary status. * ROS: A ll Other Systems: Review of Systems (ROS) A ll others negative except those mentioned in HPI,See HPI for details. * Medical History: Objective: * Vitals: * Examination: G eneral [...] J81.1 Plan: * Treatment: * Procedure Codes: 9 [id number] NURSING FAC CARE SUBSEQ * Follow Up: 2 - 3 Days * * Electronic signature of MAXIMO MOSCOSO MD on 12/03/2024 at 08:24 AM EDT Sign off status: Pending * Provider: Nancy Moscoso MD Date: 0 12/02/2024 Generated for Deei ng/Falieng/eTransmitting on: 0 12/03/2024 08:24 AM EDT History and Physical Notes * HPI (History of Present Illness) Category Sub-Category Detail Notes Category Not es Constitutional Continuing to see the patient for pulmonary management. Evaluated patient in the facility today with staff. Reviewed chart, vital signs, and any new orders. Discussed pulmonary status with the nurse and RT. Physical examination unchanged. No new pulmonary concerns. Continue current orders as written. Impression: Chronic hypoxic Respiratory Failure, dependent on ventilator Tracheostomy Chronic bronchitis Morbidly obese FARZAD / OHS Pulmonary Vascular Congestion Hx Acinetobacter in sputum Nausea Plan: Ventilator support ATC, no weaning, A/C-VC 20, 500, 8, 35% Albuterol PRN Bag lavage suctioning PRN Nephrology following, hemodialysis patient Post Bronchoscopy at [facility] with Dr Moscoso 04/27/2024 Jaimeefran PRN DNRCC BMI reviewed, encourage weight loss [...]
--- OUTSIDE RECORDS SUMMARY | 2024-12-03 08:21 | XMS_ITS ---
Author Name Auto Generated, Auto Generated Organization [facility] Address [address] [facility] [address] [place] [address] Phone [phone] Care Team Providers Care Data Processing Operator Name Role Phone Imani Stone Unavailable [phone] LexPankaj baird Unavailable [phone] Functional Status No Results Mental Status No Results Allergies and Intolerances No Known Allergies Encounters Program Name Primary Diagnosis Admission Date/Time Dis charge Date/Time Home-based Hospice TueDec 17 20 :00:00 EDT 2023September 04 19:59:00 EDT 2024 Problems Active Concerns * Encounter for palliative care* Code: * Start Date: TueJan 09 00:00:00 EDT 2012 * End Date: * Text: * Unspecified abdominal pain* Code: * Start Date: TueDec 18 00:00:00 EDT 2023 * End Date: * Text: * Abnormal uterine and vaginal bleeding, unspecified* Code: * Start Date: TueDec 18 00:00:00 EDT 2023 * End Date: * Text: * Depression, unspecified* Code: * Start Date: TueDec 18 00:00:00 EDT 2023 * End Date: * Text: Reason for Referral Past Medical History
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
--- OUTSIDE RECORDS SUMMARY | 2024-12-03 08:23 | XMS_ITS ---
Author Organization [employer] tem Address [id number] [address] [place] [address] Care Team Providers Care Quality Inspector Name Role Phone Pradeep Roy MD Primary Care Provider [phone] Dialysis Access Sites Type Status Location Placement Date Removal Da te Hemodialysis Catheter Double 02/22/24 Right Internal Jugular Active Right Neck (side) - Anterior 02/22/2024 Hemodialysis Catheter Double Cuffed Right Internal Jugular Inactive Right Neck (side) - Anterior 01/31/2024 Hemodialysis Catheter Double 01/31/24 Cuffed Right Internal Jugular Inactive Right Neck (side) - Anterior 01/31/2024 02/22/2024 Hemodialysis Catheter Triple 10/03/22 Cuffed Right Subclavian Inactive Right Breast - Upper 10/03/2022 01/31/2024 Allergies Active Allergy Reactions Criticality Noted Date [...] every 14 (fourteen) days. Not listed from [facility] Active albuterol (PROVENTIL,VENT SHE) 2.5 mg /3 [...] before bedtime. Not included on JUN from [place]. 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
--- OUTSIDE RECORDS SUMMARY | 2024-12-03 08:23 | XMS_ITS | Clinical Summary ---
Author Organization [facility] Address [address] [place] [address] Care Team Providers Care Athletic Monitor Name Role Phone Bryan Power MD Primary Care Provider [phone] Allergies Active Allergy Reactions Criticality Noted Date Comments Fentanyl Other 11/05/2022 Patient gets burning and abdominal cramps Gadolinium-Containing Contrast Media Other 08/19/2022 Iodinated Contrast Media Shortness of breath,Other High 08/03/2020 Morphine Shortness of breath,Other High 08/03/2020 Piperacillin-Tazobact am Other 08/19/2022 Medications acetaminophen (Tylenol) 325 mg suppository Insert 650 mg into the rectum every 6 (six) hours if needed. Active albuterol 0.63 mg/3 mL nebulizer solution Inhale 0.63 mg every 6 (six) hours if needed. 1 Active heparin sodium,porcine (heparin, porcine,) 5,000 unit/mL injection 3 Active naloxone (Narcan) 4 mg/0.1 mL nasal spray Administer 4 mg into affected nostril(s) if needed each day. 3 Active promethazine (Phenergan) 25 mg tablet 3 Active insulin glargine (Lantus) 100 unit/mL (3 mL) injection pen Inject 20 Units under the skin. 3 Active insulin lispro (HumaLOG) 100 unit/mL injection pen Inject 2-8 Units under the skin in the morning. 3 Active aspirin 81 mg EC tablet Take 81 mg by mouth in the morning. Active midodrine (Proamatine) 10 mg tablet Take 10 mg by mouth if needed each day. 3 Active nitroglycerin (Nitrostat) 0.4 mg SL tablet 4 Active atorvastatin (Lipitor) 20 mg tablet 40 mg. 4 Active carvedilol (Coreg) 3.125 mg tablet 3 Active metoprolol tartrate (Lopressor) 25 mg tablet 4 Active gabapentin (Neurontin) 100 mg capsule Take 100 mg by mouth 3 times a day. 1 Active lacosamide (Vimpat) 100 mg tablet Take 50 mg by mouth twice a day. Active levETIRAcetam (Keppra) 1,000 mg tablet Take 500 mg by mouth 3 times a day. Active epoetin beta, methoxy peg (Mircera) 75 mcg/0.3 mL syringe Inject 75 mcg as directed every 14 (fourteen) days. Active bumetanide (Bumex) 1 mg tablet Take 2 mg by mouth in the morning. Active bumetanide (Bumex) 2 mg tablet 4 Active sevelamer carbonate (Renvela) 800 mg tablet Take 800 mg by mouth. Active dicyclomine (Bentyl) 10 mg capsule 4 Active meclizine (Antivert) 25 mg tablet 3 Active ondansetron (Zofran) 4 mg tablet Take 4 mg by mouth every 6 (six) hours if needed. Active pantoprazole (ProtoNix) 40 mg EC tablet Take 40 mg by mouth in the morning. Active polyethylene glycol (Glycolax) 17 gram/dose powder Take 17 g by mouth in the morning. 1 Active sennosides-docus ate sodium (Betsey-Colace) 8.6-50 mg tablet Take 1 tablet by mouth every 12 (twelve) hours if needed. 3 Active predniSONE (Deltasone) 20 mg tablet Take 20 mg by mouth in the morning. Active cyclobenzaprine (Flexeril) 5 mg tablet Take 10 mg by mouth every 6 (six) hours. Active cyclobenzaprine (Flexeril) 10 mg tablet 4 Active ALPRAZolam (Xanax) 1 mg tablet Take 1 mg by mouth. Active busPIRone (Buspar) 10 mg tablet Take 10 mg by mouth 3 times a day. 1 Active busPIRone (Buspar) 7.5 mg tablet 4 Active FLUoxetine (PROzac) 40 mg capsule Take 40 mg by mouth in the morning. 1 Active FLUoxetine (PROzac) 10 mg tablet 4 Active FLUoxetine (PROzac) 20 mg tablet 4 Active FLUoxetine (PROzac) 60 mg tablet 3 Active risperiDONE (RisperDAL) 1 mg tablet Take 1 mg by mouth in the morning. 1 Active levothyroxine (Synthroid, Levoxyl) 175 mcg tablet Take 175 mcg by mouth in the morning. Active levothyroxine (Synthroid, Levoxyl) 125 mcg tablet 3 Active levothyroxine (Synthroid, Levoxyl) 150 mcg tablet 3 Active cholecalciferol (Vitamin D-3) 10 MCG (400 UNIT) tablet Take 400 Units by mouth every other day. Active folic acid-vitamin B complex-vitamin A-okesahcm-kmvt (DIALYVITE 3000) 3-70-15 mg-mcg-mg tablet Take by mouth in the morning. Active Daily-Fabrice, with folic acid, 400 mcg tablet 4 Active mupirocin (Bactroban) 2 % ointment 4 Active potassium chloride CR (Klor-Con M20) 20 mEq ER tablet 4 Active acetaminophen (Tylenol) 325 mg tablet Take 650 mg by mouth every 6 (six) hours if needed. Active apixaban (Eliquis) 2.5 mg tablet Take 2.5 mg by mouth two times daily. Active ferrous sulfate 325 (65 Fe) MG tablet Take 325 mg by mouth 1 (one) time each day. 4 Active folic acid (Folvite) 1 mg tablet Take 1 mg by mouth in the morning. 4 Active metoprolol succinate XL (Toprol-XL) 25 mg 24 hr tablet Take 25 mg by mouth in the morning. 10/11/202 4 Active HYDROcodone-acet aminophen ([place]) 5-325 mg tablet Take 1 tablet by mouth every 4 (four) hours if needed. Active loperamide (Imodium A-D) 2 mg tablet Take 2-4 mg by mouth if needed in the morning, at noon, in the evening, and at bedtime. Active multivitamin tablet Take 1 tablet by mouth in the morning. Active Active Problems Problem Noted Date Diagnosed Date Abdominal wall skin ulcer, with fat layer expose d 11/09/2023 Surgical wound present 11/09/2023 Fall 11/07/2023 Wound infection 09/14/2023 Overview (09/14/2023): Left lower abdominal wound that appears infected with surrounding erythema, copious purulent drainage, and significant induration. Patient had previously received a prolonged course of ciprofloxacin for treatment of Pseudomonas mesh infection. Course of ciprofloxacin completed in early May. Assessment & Plan (09/14/2023 11:19 AM EDT): Due to clear infection in the wound as well as multiple organisms detected on outpatient testing will start patient on IV daptomycin and cefepime. There were no susceptibilities available and linezolid would be inappropriate in this patient due to multiple serotonergic medications for other conditions therefore daptomycin would be preferred in this case. Will refer patient to general surgery. Patient states that previous surgeon who performed initial placement of mesh has since retired. Suspect patient will need debridement of this area. If debridement is performed please obtain surgical cultures. Additionally we will send for CT scan of the abdomen to evaluate for possible underlying abscess. Will tentatively plan on 3 weeks of IV therapy, and will likely need to extend pending surgical evaluation and imaging. Acute on chronic diastolic (congestive) heart fa ilure 09/13/2023 Altered mental status 09/13/2023 Bilateral edema of lower extremity 09/13/2023 C. 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 11/05 Morbid obesity 11/05/2022 NSTEMI (non-ST elevated myocardial infarction) 0 11/05/2022 Ventilator dependence 11/05/2022 Dyspnea 03/21/2021 Encounters Date Type Department Care Team Description 09/20/2024 Telephone [facility] Gastroenterology [address] [place] [address] Darnell Cornell, ИРИНА 09/19/2024 Telephone [facility] Invasive Surgery [facility] [address] [place] [address] Elisabeth Linder RN from Last 3 Months Social History Tobacco Use Types Packs/Day Years Used Date Smoking Tobacco: Former Cigarettes Smokeless Tobacco: Never Tobacco Cessation:Counseling Given: Not Answered Alcohol Use Standard Drinks/Week Comments Never 0 (1 standard drink = 0.6 oz pur e alcohol) Humiliation, Afraid, Rape, and Kick questionnair e Answer Date Recorded Within the last year, have y ou been afraid of your partner or ex-partner? No 02/07/2024 Emotionally Abused Not on file 02/07/2024 Physically Abused Not on file 02/07/2024 Sexually Abused Not on file 02/07/2024 PHQ-2 Answer Date Recorded Patient Health Questionnaire-2 Score 0 02/07/2024 [facility] - Occupational Stress Questionnaire Answer Date Recorded Do you feel stress - tense, restless, nervous, or anxious, or unable to sleep at night because your mind is troubled all the time - these days? Not at all 09/14/2023 Exercise Vital Sign Answer Date Recorde d On average, how many days pe r week do you engage in moderate to strenuous exercise (like a brisk walk)? 0 days 09/14/2023 On average, how many minutes do you engage in exercise at this level? 0 min 09/14/2023 Hunger Vital Sign Answer Date Recorded Within the past 12 months, y ou worried that your food would run out before you got the money to buy more. Never true 09/14/19 24 Within the past 12 months, t he food you bought just didn't last and you didn't have money to get more. Never true 09/14/2023 Comments Unknown Sex and Gender Information Value Date Recorded Sex Assigned at Not on file Legal Sex Female 11:35 AM EDT Gender Identity Not on file Sexual Orientation Not on file Last Filed Vital Signs Vital Sign Reading Time Taken Comments Blood Pressure 113/62 03/15/2024 1:17 PM EST Pulse 89 03/15/2024 1:17 PM EST Temperature 36.6 C (97.9 F) 03/15/2024 1:17 PM EST Respiratory Rate 20 10/19/2023 2:51 PM EDT Oxygen Saturation 97% 03/07/2024 1:20 PM EST Inhaled Oxygen Concentration - - Weight 154 kg (339 lb) 03/15/2024 1:17 PM EST Height 154.9 cm (5' 1 ) 03/15/2024 1:17 PM EST Body Mass Index 64.05 03/15/2024 1:17 PM EST Plan of Treatment Health Maintenance Due Date Last Done Comments CT Colonography 1967 Colonoscopy 1967 Colorectal Cancer Screening 1967 Diabetes: Hemoglobin A1C 1967 FIT-DNA 1967 FIT 1967 FOBT 1967 Sigmoidoscopy 1967 Diabetes: Retinopathy Screening 1977 Diabetes: Urine Protein Screening 1986 Hepatitis B Vaccines (1 of 3 - 19+ 3-dose series) 1986 Pneumococcal Vaccine: Pediat rics (0 to 5 Years) and At-Risk Patients (6 to 64 Years) (1 of 2 - PCV) 1986 Pap Smear 02/16/1988 Adult Tetanus 1989 Cervical Cancer Screening 1997 HPV/Cotest 1997 Mammogram 2007 Zoster Vaccines (1 of 2) 2017 COVID-19 Vaccine (2 - 2023-2 5 season) 2023 02/25/2022 Influenza Vaccine (#1) 2024 Depression Screening 02/06/2025 02/07/2024 HIB Vaccines Aged Out No longer eligi ble based on patient's age to complete this topic HPV Vaccines Aged Out No longer eligi ble based on patient's age to complete this topic IPV Vaccines Aged Out No longer eligi ble based on patient's age to complete this topic Meningococcal B Vaccine Aged Out No l onger eligible based on patient's age to complete this topic Meningococcal Vaccine Aged Out No shwetha manav eligible based on patient's age to complete this topic Rotavirus Vaccines Aged Out No longer eligible based on patient's age to complete this topic Insurance [place]ICAID [place] Care Teams Athletic Monitor Relationship Specialty Start Date End Date Bryan Power MD [address] [address] PCP - General 09/14/23
--- OUTSIDE RECORDS SUMMARY | 2024-12-03 08:23 | XMS_ITS | Encounter Summary ---
Author Organization [facility] tem Address [id number] [address] [place] [address] Care Team Providers Care Inker Name Role Phone Pradeep Roy MD Primary Care Provider [phone] Encounter Details Date Type Department Care Team ([facility] st Contact Info) Description 12/21/2023 Telephone [facility] Cardiology [address] [place] [id number] Colleen Willard Social History Tobacco Use Types Packs/Day Years Used Date Smoking Tobacco: Never Smokeless Tobacco: Never Alcohol Use Standard Drinks/Week Comments Not Currently 0 (1 standard drink = 0.6 oz pur e alcohol) [facility] Utilities Answer Date Recorded In the past 12 months has th e electric, gas, oil, or water company threatened to shut off services in your home? No 12/17/2023 AUDIT-C Answer Date Recorded Q1: How often do you have a drink containing alc ohol? Monthly or less 12/17/2023 Q2: How many drinks containi ng alcohol do you have on a typical day when you are drinking? 1 or 2 12/17/2023 Q3: How often do you have si x or more drinks on one occasion? Never 12/17/2023 PHQ-2 Answer Date Recorded Total Score 0 12/17/2023 PRAPARE - Transportation Answer Date Re corded In the past 12 months, has l ack of transportation kept you from medical appointments or from getting medications? No 10/2023 In the past 12 months, has l ack of transportation kept you from meetings, work, or from getting things needed for daily living? No 12/17/2023 Housing Instability Answer Date Recorde d Are you worried or concerned that in the next two months you may not have stable housing that you own, rent or stay in as a part of a household? No 12/17/2023 Childcare Answer Date Recorded Childcare Unknown 07/10/2020 Employment Answer Date Recorded Employment Unknown 07/10/2020 Hunger Screening Answer Date Recorded Within the past 12 months we worried whether our food would run out before we got money to buy more. Never True 12/17/2023 Within the past 12 months th e food we bought just didn't last and we didn't have money to get more. Never True 12/17/2023 Purpose - Life Answer Date Recorded Purpose and direction in life Unknown Comments No Sex and Gender Information Value Date Recorded Sex Assigned at Not on file Legal Sex Female 5:48 PM EDT Gender Identity Not on file Sexual Orientation Not on file documented as of this encounter Miscellaneous Notes * Telephone Encounter - Colleen Willard - 12/21/2023 1:32 PM EDT ----- Message from ROBERT Majano sent at 12/21/2023 12:48 PM EDT ----- Please schedule follow-up in 3-4 weeks. Thank you. documented in this encounter Plan of Treatment Not on file documented as of this encounter Goals Goal Patient Goal Type Associated Problems Recent Progress Patient-Stated? Author Discharge General Yes Bianca Lyles, RN Note: Evaluation of progress towards goal: Patient plans to return to [facility] in [place] documented as of this encounter Visit Diagnoses Not on filedocumented in this encounter Additional Health Concerns Infection Onset Date Last Indicated Resolved Time CRE Comment:[facility](07/17/23) 07/17/2023 07/17/2023 Enteric Rule-Out 01/29/2024 01/29/2024 01/30/2024 3:29 AM EDT COVID-19 Rule-Out 01/30/2024 01/30/2024 01/30/2024 10:00 AM EDT Enteric Rule-Out 01/30/2024 01/30/2024 01/31/2024 3:05 AM EDT Assessment Noted Time PHQ-9 Depression Total Score: 0 12/17/19 4:37 PM EDT documented as of this encounter Care Teams Inker Relationship Specialty Start Date End Date Prade[place] [address] [place] [address] PCP - General Family Medicine 11/07/23 documented as of this encounter
--- OUTSIDE RECORDS SUMMARY | 2024-12-03 08:23 | XMS_ITS | Clinical Summary ---
Author Organization [facility] Address [address] [place] [address] Phone Care Team Providers Care Coal Trammer Name Role Phone Tracie Martin Primary Care Provider Social History Tobacco Use Types Packs/Day Years Used Date Smoking Tobacco: Never Assessed Comments Unknown Sex and Gender Information Value Date Recorded Sex Assigned at Not on file Legal Sex Female 12:41 AM EST Gender Identity Not on file Sexual Orientation Not on file Last Filed Vital Signs Vital Sign Reading Time Taken Comments Blood Pressure - - Pulse - - Temperature - - Respiratory Rate - - Oxygen Saturation - - Inhaled Oxygen Concentration - - Weight 155 kg (342 lb 6 oz) 04/02/2021 3:[address] Height 154.9 cm (5' 0.98 ) 04/02/2021 3:02 PM ES T Body Mass Index 64.73 04/02/2021 3:02 PM EST Plan of Treatment Health Maintenance Due Date Last Done Comments CT Colonography 1967 Colonoscopy 1967 Colorectal Cancer Screening 1967 FIT-DNA (Cologuard) 1967 FIT 1967 HIV Screening 1967 Lipid Panel 1967 Sigmoidoscopy 1967 Yearly Adult Physical 1967 MMR Vaccines (1 of 1 - Standard series) 02/16/1968 Hepatitis B Vaccines (1 of 3 - 19+ 3-dose series) 1986 Cervical Cancer Screening 02/16/1988 HPV/Cotest 02/16/1988 Pap Smear 02/16/1988 DTaP/Tdap/Td Vaccines (1 - Tdap) 1989 Mammogram 2007 Pneumococcal Vaccine (1 of 1 - PCV) 2017 Zoster Vaccines (1 of 2) 2017 Diabetes Screening 06/23/2023 06/22/2022, 0 06/21/2022, 06/21/2022, Additional history exists COVID-19 Vaccine (1 - 2023- season) 2023 Influenza Vaccine (#1) 2024 Hepatitis C Screening Completed 01/28/2022 HIB Vaccines Aged Out No longer eligi ble based on patient's age to complete this topic HPV Vaccines Aged Out No longer eligi ble based on patient's age to complete this topic Hepatitis A Vaccines Aged Out No long er eligible based on patient's age to complete this topic IPV Vaccines Aged Out No longer eligi ble based on patient's age to complete this topic Meningococcal Vaccine Aged Out No shwetha manav eligible based on patient's age to complete this topic Rotavirus Vaccines Aged Out No longer eligible based on patient's age to complete this topic Procedures Procedure Name Priority Date/Time Associated Diagnosis Comments POCT GLUCOSE Routine 06/22/2022 8:03 AM EDT HEPATITIS PANEL, ACUTE Routine 01/28/2022 10:04 AM EDT from Last 3 Months or Most Recently Relevant to Health Maintenance Results * (ABNORMAL) POCT GLUCOSE (06/22/2022 8:03 AM EDT) POCT Glucose 143(H) 74 - 99 mg/dL [facility] 06/22/2022 8:03 AM EDT 06/22/2022 8:04 AM EDT us James Lopez MD LAB POINT OF CARE TE ST DOCKED DEVICE UNSOLICITED RESULTS Final Result [facility] [address] [place] [address] * Hepatitis Panel, Acute (01/28/2022 10:04 AM EDT) Hep A IgM NONREACTIVE NONREACTIVE [facility] Comment: Biotin interference may cause falsely decreased results. Patients taking a Biotin dose of up to 5 mg/day should refrain from taking Biotin for 24 hours before sample collection. Providers may contact their local laboratory for further information. Hep B Core IgM NONREACTIVE NONREACTIVE [facility] Comment: Results from patients taking biotin supplements or receiving high-dose biotin therapy should be interpreted with caution due to possible interference with this test. Providers may contact their local laboratory for further information. Hepatitis B Surface Ag NONREACTIVE NONREACTIVE [facility] Comment: Biotin interference may cause falsely decreased results. Patients taking a Biotin dose of up to 5 mg/day should refrain from taking Biotin for 24 hours before sample collection. Providers may contact their local laboratory for further information. Hepatitis C Ab NONREACTIVE NONREACTIVE [facility] Comment: Results from patients taking biotin supplements or receiving high-dose biotin therapy should be interpreted with caution due to possible interference with this test. Providers may contact their local laboratory for further information. 01/28/2022 10:0 4 AM EDT 01/28/2022 5:08 PM EDT Mala Johnson YARD FOREMAN-MILITARY SOURCE OPERATIONS OFFICER LAB BLOOD ORDERABLES Fin al Result [facility] [id number] [id number] from Last 3 Months or Most Recently Relevant to Health Maintenance Care Teams Coal Trammer Relationship Specialty Start Date End Date Tracie Martin DO PCP - General 05/05/21
--- OUTSIDE RECORDS SUMMARY | 2024-12-03 08:23 | XMS_ITS | Encounter Summary ---
Author Organization [employer] [facility] tem Address [id number] [address] [place] [address] Care Team Providers Care Qualitative Researcher Name Role Phone Pradeep Roy MD Primary Care Provider [phone] Encounter Details Date Type Department Care Team (Late st Contact Info) Description 05/26/2023 Orders Only [facility] [address] [place] [phone] Sugar Scott, [place] Social History Tobacco Use Types Packs/Day Years Used Date Smoking Tobacco: Never Smokeless Tobacco: Never Alcohol Use Standard Drinks/Week Comments Not Currently 0 (1 standard drink = 0.6 oz pur e alcohol) Childcare Answer Date Recorded Childcare Unknown 07/10/2020 Employment Answer Date Recorded Employment Unknown 07/10/2020 Hunger Screening Answer Date Recorded Within the past 12 months we worried whether our food would run out before we got money to buy more. Never True 05/06/2023 Within the past 12 months th e food we bought just didn't last and we didn't have money to get more. Never True 05/06/2023 Purpose - Life Answer Date Recorded Purpose and direction in life Unknown Comments No Sex and Gender Information Value Date Recorded Sex Assigned at Not on file Legal Sex Female 5:48 PM EDT Gender Identity Not on file Sexual Orientation Not on file documented as of this encounter Plan of Treatment Not on file documented as of this encounter Visit Diagnoses Not on filedocumented in this encounter Additional Health Concerns Infection Onset Date Last Indicated Resolved Time COVID-19 Rule-Out 07/17/2023 07/17/2023 07/17/2023 9:30 PM EDT CRE Comment:[facility](07/17/23) 07/17/2023 07/17/2023 Enteric Rule-Out 01/29/2024 01/29/2024 01/30/2024 3:29 AM EDT COVID-19 Rule-Out 01/30/2024 01/30/2024 01/30/2024 10:00 AM EDT Enteric Rule-Out 01/30/2024 01/30/2024 01/31/2024 3:05 AM EDT documented as of this encounter Care Teams Qualitative Researcher Relationship Specialty Start Date [place] [address] [place] [address] PCP - General Family Medicine 11/07/23 documented as of this encounter
--- OUTSIDE RECORDS SUMMARY | 2024-12-03 08:24 | XMS_ITS | Encounter Summary ---
Author Organization [facility] [facility] Address [id number] [address] [place] [address] Care Team Providers Care Jewel Stripper Name Role Phone Pradeep Roy MD Primary Care Provider [phone] Encounter Details Date Type Department Care Team (Late st Contact Info) Description 05/09/2023 Orders Only [facility] [address] [place] [phone] External, Scanning Provider Social History Tobacco Use Types Packs/Day [...] on file documented as of this encounter Procedures Procedure Name Priority Date/Time Associated Diagnosis Comments MULTIPLE LABS Routine 05/04/2023 8:43 AM EST ECG 12-LEAD Routine 04/19/2023 8:44 AM EST MULTIPLE LABS Routine 04/12/2023 8:42 AM EST MULTIPLE LABS Routine 03/29/2023 8:41 AM EST ECG 12-LEAD Routine 02/09/2023 8:45 AM EDT documented in this encounter Results * Multiple labs (05/04/2023 8:43 AM EST) us Scanning Provider External MI IMAGING Final Result Performing Organization Address [facility] Phone Number MANUALLY TRANSCRIBED RESULTS * ECG 12 lead (04/19/2023 8:44 AM EST) us Scanning Provider External ECG ORDERABLES Final Result Performing Organization Address [facility] Phone Number MANUALLY TRANSCRIBED RESULTS * Multiple labs (04/12/2023 8:42 AM EST) us Scanning Provider External MI IMAGING Final Result Performing Organization Address [facility] Phone Number MANUALLY TRANSCRIBED RESULTS * Multiple labs (03/29/2023 8:41 AM EST) us Scanning Provider External MI IMAGING Final Result Performing Organization Address [facility] Phone Number MANUALLY TRANSCRIBED RESULTS * ECG 12 lead (02/09/2023 8:45 AM EDT) us Scanning Provider External ECG ORDERABLES Final Result Performing Organization Address [facility] Phone Number MANUALLY TRANSCRIBED RESULTS documented in this encounter Visit Diagnoses Not on filedocumented in this encounter Additional Health Concerns Infection Onset Date Last Indicated Resolved Time COVID-19 Rule-Out 07/17/2023 07/17/2023 07/17/2023 9:30 PM EDT CRE Comment:[facility](07/17/23) 07/17/2023 07/17/2023 Enteric Rule-Out 01/29/2024 01/29/2024 01/30/2024 3:29 AM EDT COVID-19 Rule-Out 01/30/2024 01/30/2024 01/30/2024 10:00 AM EDT Enteric Rule-Out 01/30/2024 01/30/2024 01/31/2024 3:05 AM EDT documented as of this encounter Care Teams Jewel Stripper Relationship Specialty Start Date End Date Pradeep Roy MD [facility] [place] [address] PCP - General Family Medicine 11/07/23 documented as of this encounter
--- OUTSIDE RECORDS SUMMARY | 2024-12-03 08:24 | XMS_ITS | Encounter Summary ---
Author Organization [employer] [facility] tem Address [id number] [address] [place] [address] Care Team Providers Care Thermal Cutter Hand Name Role Phone Pradeep Roy MD Primary Care Provider [phone] Encounter Details Date Type Department Care Team (Late st Contact Info) Description 05/30/2023 Orders Only [facility] Cardiology [address] [place] [phone] Isha Martin, [place] Dyspnea, unspecified type (Primary Dx); Coronary artery disease involving mohegan heart, unspecified vessel or lesion type, unspecified whether angina present Social History Tobacco Use Types Packs/Day Years [...] documented as of this encounter Visit Diagnoses Diagnosis Dyspnea, unspecified type- Primary Coronary artery disease involving mohegan heart, unspecified vessel or lesion type, unspecified whether angina present documented in this encounter Additional Health Concerns Infection Onset Date Last Indicated Resolved Time COVID-19 Rule-Out 07/17/2023 07/17/2023 07/17/2023 9:30 PM EDT CRE Comment:UC(07/17/23) 07/17/2023 07/17/2023 Enteric Rule-Out 01/29/2024 01/29/2024 01/30/2024 3:29 AM EDT COVID-19 Rule-Out 01/30/2024 01/30/2024 01/30/2024 10:00 AM EDT Enteric Rule-Out 01/30/2024 01/30/2024 01/31/2024 3:05 AM EDT documented as of this encounter Care Teams Thermal Cutter Hand Relationship Specialty Start Date [place] [address] [place] [address] PCP - General Family Medicine 11/07/23 documented as of this encounter
--- OUTSIDE RECORDS SUMMARY | 2024-12-03 08:24 | XMS_ITS | Encounter Summary ---
Author Organization [facility] tem Address [facility] [id number] [address] [place] [address] Care Team Providers Care Tower Hoist Operator Name Role Phone Pradeep Roy MD Primary Care Provider [phone] Encounter Details Date Type Department Care Team ([facility] st Contact Info) Description 03/31/2023 Orders Only [facility] Obstetrics/Gynecology [address] [place] [phone] Ref Prov, [place] [address] Social History Tobacco Use Types Packs/Day Years Used Date Smoking Tobacco: Never Smokeless Tobacco: Never Childcare Answer Date Recorded Childcare Unknown 07/10/2020 Employment Answer Date Recorded Employment Unknown 07/10/2020 Hunger Screening Answer Date Recorded Within the past 12 months we worried whether our food would run out before we got money to buy more. Never True 09/12/2022 Within the past 12 months th e food we bought just didn't last and we didn't have money to get more. Never True 09/12/2022 Purpose - Life Answer Date Recorded Purpose [...] Procedure Name Priority Date/Time Associated Diagnosis Comments EXTERNAL LAB ORDERS / RESULTS Routine 03/31/2023 1:36 PM EST documented in this encounter Results * External Lab Orders / Results (03/31/2023 1:36 PM EST) us Not In System Ref Prov LAB ORDERABLES Final Res ult MANUALLY TRANSCRIBED RESULTS documented in this encounter [...] documented as of this encounter Care Teams Tower Hoist Operator Relationship Specialty Start Date End [place] [address] [place] [address] PCP - General Family Medicine 11/07/23 documented as of this encounter
--- OUTSIDE RECORDS SUMMARY | 2024-12-03 08:24 | XMS_ITS | Encounter Summary ---
Author Organization [employer] tem Address [id number] [address] [place] [address] Care Team Providers Care Manager Business Banking Name Role Phone Pradeep Roy MD Primary Care Provider [phone] Encounter Details Date Type Department Care Team ([facility] st Contact Info) Description 10/07/2022 Orders Only [facility] [address] [place] [id number] Kelly Cortés, ZANJERO Social History Tobacco Use Types Packs/Day Years [...] documented as of this encounter Care Teams Manager Business Banking Relationship Specialty Start Date End Date [place] [address] [place] [address] PCP - General Family Medicine 11/07/23 documented as of this encounter
--- OUTSIDE RECORDS SUMMARY | 2024-12-03 08:24 | XMS_ITS | Encounter Summary ---
Author Organization [facility] [email or web address] [facility] tem Address [facility] [id number] [address] [place] [address] Care Team Providers Care Apprentice Cook Name Role Phone Pradeep Roy MD Primary Care Provider [phone] Encounter Details Date Type Department Care Team (Late st Contact Info) Description 05/05/2023 Orders Only [facility] Cardiology [address] [place] [phone] External, Scanning Provider Social History Tobacco Use [...] Procedure Name Priority Date/Time Associated Diagnosis Comments ECG 12-LEAD Routine 03/18/2023 9:29 AM EST documented in this encounter Results * ECG 12 lead (03/18/2023 9:29 AM EST) us Scanning Provider External ECG ORDERABLES Final Result MANUALLY TRANSCRIBED RESULTS documented in this encounter [...] documented as of this encounter Care Teams Apprentice Cook Relationship Specialty Start Date End [place] [address] [place] [address] PCP - General Family Medicine 11/07/23 documented as of this encounter
--- OUTSIDE RECORDS SUMMARY | 2024-12-03 08:24 | XMS_ITS | Encounter Summary ---
Author Organization [facility] [employer] [facility] tem Address [facility] [id number] [address] [place] [address] Care Team Providers Care Vocational Childcare Teacher Name Role Phone Pradeep Roy MD Primary Care Provider [phone] Encounter Details Date Type Department Care Team (Late st Contact Info) Description 05/07/2024 Orders Only [facility] Orthopedics/Trauma and Adult Reconstruction [address] [place] [address] Delfina Miner, RN Social History Tobacco Use Types Packs/Day Years Used Date Smoking Tobacco: Never Smokeless Tobacco: Never Alcohol Use Standard Drinks/Week Comments Not Currently 0 (1 standard drink = 0.6 oz pur e alcohol) [facility] Utilities Answer Date Recorded In the past 12 months has e electric, gas, oil, or water company [...] got money to buy more. Never True 04/18/2024 Within the past 12 months th e food we bought just didn't last and we didn't have money to get more. Never True 04/18/2024 Purpose - Life Answer Date Recorded Purpose [...] towards goal: Patient plans to return to [facility] Safe transition back to [facility] General Yes Elisabeth Chambers LSW Note: Evaluation of progress towards goal: Safe transition back to [facility]. - TONNY Duval 01/30/24 8:35 AM ' documented as of this encounter Visit Diagnoses Not on filedocumented in this encounter Additional Health Concerns Infection Onset Date Last Indicated Resolved Time CRE Comment:UC(07/17/23) 07/17/2023 07/17/2023 Assessment Noted Time PHQ-9 Depression Total Score: 0 01/30/20 9:16 AM EDT documented as of this encounter Care Teams Vocational Childcare Teacher Relationship Specialty Start Date End Date Pradeep Roy MD [facility] [place] [address] PCP - General Family Medicine 11/07/23 documented as of this encounter
--- OUTSIDE RECORDS SUMMARY | 2024-12-03 08:31 | XMS_ITS | CCD ---
Author Organization [facility] Care Team Providers Care Refrigeration Service Technician Name Role Phone TENZIN GRANT Consulting Unavailable JULIANO LOCKE Primary Care Unavailable TENZIN GRANT Admitting Unavailable TENZIN GRANT Attending Unavailable Vasile Hatfield Consulting Unavailable CHUCKY, JULIANO Primary Care Unavailable DR BRONSON ROSAS Consulting Unavailable TENZIN GRANT Admitting Unavailable TENZIN GRANT Attending Unavailable AUDREY MYERS Consulting Unavailable TENZIN GRANT Consulting Unavailable Tracie Martin Unavailable Benjamin Gonzáles Unavailable Unavailable Wilberto France Unavailable Hugh Terry Unavailable Dinfrancisca, Buthayna Unavailable Unavailable Wade Roland Unavailable Zac Zapata Unavailable Unavailable Bronson Latham Unavailable Shawna Trimble Unavailable UnavailStacie Live Unavailable Dr. Tracie Martin Primary Care Unavailmanolo Martin, Dr. Tracie Jean Baptiste Referring Unavaila hasmukh Gamble, Dr. Hugh Manuel Attending UnavailHumberto Carvajal Unavailable Dr. Tracie Martin Primary Care UnavailMD HUMBERTO Carvajal Attending Unavailable Milly, Dr. Leticia Bright Admitting Carmela Atkins, Dr. Leticia Bright Referring Carmela Martin, Dr. Tracie Jean Baptiste Primary Care Unavailmanolo Martin, Dr. Tracie Jean Baptiste Referring Unavailmanolo Atkins, Dr. Leticia Bright Admitting Carmela Atkins, Dr. Leticia Bright Attending Carmela Martin, Dr. Tracie Jean Baptiste Primary Care Unavaila Wade Felix Admitting Unavailable Wade Roland Attending Unavailable Wade Roland Referring Unavailable Veronica, Dr. Tracie Jean Baptiste Primary Care Unavaila ble Ricaurte, Dr. Frank Admitting Unavailable Ricaurte, Dr. Frank Attending Unavailable Ricanirte, Dr. Frank Referring Unavailable Veronica, Dr. Tracie Jean Baptiste Primary Care Unavaila ble Shawna Trimble Attending Unavailabl e Ricanirte, Dr. Frank Admitting Unavailable Ricaurte, Dr. Frank Referring Unavailable NON STAFF Primary Care Provider UnavailTHOMAS Linn Attending Provider Julián Conti MD Primary Care Provider [phone] Julián Conti MD Primary Care Provider Sandy Rivera Attending Unavailable Sandy Rivera Admitting Unavailable NON STAFF Primary Care Unavailable Julián Conti MD Primary Care Provider [phone] Julián Conti MD Primary Care Provider SANDY RIVERA Referring Unavailable GALLITO, RUGEN Primary Care Unavailable SANDY RIVERA Referring Unavailable GALLITO, RUGEN Primary Care Unavailable SANDY RIVERA Referring Unavailable GALLITO, RUGEN Primary Care Unavailable SELINA CARMICHAEL Attending Unavailable GALLITO, RUGEN M Primary Care Unavailable SELINA CARMICHAEL Attending Unavailable SELINA CARMICHAEL Referring Unavailable GALLITO, RUGEN M Primary Care Unavailable DOMINGO TOBIAS Referring Unavailable GALLITO, RUGEN M Primary Care Unavailable GALLITO, RUGEN M Primary Care Unavailable MEGAN ROSENBERG Attending Unavailable MEGAN ROSENBERG Attending Unavailable MEGAN ROSENBERG Referring Unavailable GALLITO, RUGEN M Primary Care Unavailable GRISEL MCGINNIS Referring Unavailable GALLITO, RUGEN M Primary Care Unavailable CECILIO BRANDT Attending Unavailable RATNA CORNEJO Referring Unavailable GALLITO, RUGEN M Primary Care Unavailable WESLEY KIM Referring Unavailable GALLITO, RUGEN M Primary Care Unavailable ISHMAEL GUTIERREZ Referring Unavailable GALLITO, RUGEN M Primary Care Unavailable ISHMAEL GUTIERREZ Referring Unavailable GALLITO, RUGEN M Primary Care Unavailable GALLITO, RUGEN M Primary Care Unavailable LETICIA SANTOS Attending Unavailable GALLITO, RUGEN M Primary Care Unavailable LETICIA SANTOS Attending Unavailable DOMINGO TOBIAS Referring Unavailable GALLITO, RUGEN M Primary Care Unavailable GALLITO, RUGEN M Primary Care Unavailable SANDEEP VALENTIN Attending Unavailable STEFAN LINDA Attending Unavailable GALLITO, RUGEN M Referring Unavailable GALLITO, RUGEN M Primary Care Unavailable GALLITO, RUGEN M Referring Unavailable GALLITO, RUGEN M Primary Care Unavailable GALLITO, RUGEN M Referring Unavailable GALLITO, RUGEN M Primary Care Unavailable GALLITO, RUGEN M Referring Unavailable GALLITO, RUGEN M Primary Care Unavailable GALLITO, RUGEN M Primary Care Unavailable JAGDISH VASQUEZ Consulting Unavailable WANDER ARIAS Admitting Unavailable WANDER ARIAS Attending Unavailable TRIXIE VILLANUEVA Consulting Unavailable ONLY), IP WOUND CARE SERVICES (INPATIENT Consult ing Unavailable MAGSI, CALIN M Consulting Unavailable SELINA CARMICHAEL Referring Unavailable GALLITO, RUGEN M Primary Care Unavailable JAGDISH HOOPER Referring Unavailable GALLITO, RUGEN M Primary Care Unavailable GALLITO, RUGEN M Referring Unavailable GALLITO, RUGEN M Primary Care Unavailable JAGDISH VASQUEZ Attending Unavailable GALLITO, RUGEN M Referring Unavailable GALLITO, RUGEN M Primary Care Unavailable DEBBI PRAKASH Attending Unavailable MEGAN ROSENBERG Referring Unavailable GALLITO, RUGEN M Primary Care Unavailable MAGSI, CALIN M Consulting Unavailable YAIMA IRIZARRY Admitting Unavailable TTH ONLY, [facility] GI CONSULT SERV[facility] Consulting Unavailable BAM FERNANDEZ Consulting Unavailable CARDIOLOGY, [facility] Consulting Unavailable CHANTAL NEFF Consulting Unavailable ONLY), IP WOUND CARE SERVICES (INPATIENT Consult ing Unavailable SAM COREA Consulting Unavailable KALA PITTS Consulting Unavailable (T[facility] ONLY), NEURO-CONSULTING Consulting Suze vailable MIRTHA PORTILLO Consulting Unavailable TTH ONLY, ACADEMIC ADULT PUL MONARY CONSULT SERVICE Consulting Unavailable SHALOM PATRICIO Referring Unavailable GALLITO, RUGEN M Primary Care Unavailable MARIE TRIVEDI Referring Unavailable GALLITO, RUGEN M Primary Care Unavailable JAGDISH VASQUEZ Attending Unavailable GALLITO, RUGEN M Referring Unavailable GALLITO, RUGEN M Primary Care Unavailable RY, LUIS M Admitting Unavailable RY, LUIS M Attending Unavailable MICHELLE YORK Referring Unavailable GALLITO, RUGEN M Primary Care Unavailable PATRIZIA BROWN Consulting Unavailable DIGNA TORRES Consulting Unavailable TT ONLY, ACADEMIC ADULT PUL MONARY CONSULT SERVICE Consulting Unavailable VIRGINIA CALIN M Consulting Unavailable DIVISION [facility] INFECTIOUS DISE[facility], [facility] Consulting Unavailable PATRICIA COREA Consulting Unavailable LETICIA SANTOS Referring Unavailable GALLITO, RUGEN M Primary Care Unavailable SALAHALDSAVANA, AYA Referring Unavailable GALLITO, RUGEN M Primary Care Unavailable MOOSE LEWIS Attending Unavailable ABBMOOSE GIBSON Referring Unavailable GALLITO, RUGEN M Primary Care Unavailable Robin Heart Admitting Unavailable GALLITO, RUGEN M Referring Unavailable GALLITO, RUGEN M Primary Care Unavailable MAXIMO MOSCOSO Admitting Unavailable MAXIMO MOSCOSO Attending Unavailable GALLITO, RUGEN M Primary Care Unavailable GALLITO, RUGEN M Referring Unavailable GALLITO, RUGEN M Primary Care Unavailable ISHMAEL GUTIERREZ Attending Unavailable GALLITO, RUGEN M Referring Unavailable GALLITO, RUGEN M Primary Care Unavailable LETICIA SANTOS Referring Unavailable GALLITO, RUGEN M Primary Care Unavailable GALLITO, RUGEN M Referring Unavailable GALLITO, RUGEN M Primary Care Unavailable GALLITO, RUGEN M Referring Unavailable GALLITO, RUGEN M Primary Care Unavailable IDANIA GUNDERSON Attending Unavailable PA, IDANIA Attending Unavailable PA, IDANIA Attending Unavailable PA, IDANIA Attending Unavailable PA, IDANIA Attending Unavailable IDANIA GUNDERSON Attending Unavailable YVES HART Referring Unavailable ALEKSANDAR DELVALLE Attending Unavailable Unavailable Primary Care Provider Unavailabl e Allergies Allergy Classification Reported Allergen(s) Allergy Type Date of Onset Reaction(s) Facility (1 source) Iodine (And Iodine Containting Drugs) Drug allergy (disorder) 1 [facility] Repository (5 sources) Morphine; Translations: [MORPHINE] Drug Allergy 1 Unknown Reaction [facility] Repository (7 sources) Gadolinium Drug Allergy Unknown [facility] (7 sources) Iodine Drug Allergy Unknown [facility] (20 sources) Morphine Drug Allergy 1 Shortness Of Breath [facility] Comment on above: Tolerated hydromorph one June 2022 (4 sources) Piperacillin / tazobactam Drug Allergy Cough, Flushing [facility] (2 sources) Gadolinium-Contai brenda Contrast Medi; Translations: [Gadolinium-Conta ining Contrast Medi] Allergy to substance 1 Unknown Reaction [facility] (20 sources) Iodinated Contrast Media; Translations: [Iodinated Contrast Media] Allergy to substance 1 Shortness Of Breath [facility] (20 sources) fentaNYL; Translations: [FENTANYL] Drug [facility] (20 sources) Piperacillin / tazobactam; Translations: [PIPERACILLIN-BERONICA OBACTAM] Drug Allergy 3 [facility] [place] [facility] (11 sources) Gadolinium-Contai brenda Contrast Media; Translations: [GADOLINIUM-CONTA INING CONTRAST MEDIA] Propensity to adverse reactions to drug 3 [facility] [place] [facility] (1 source) Morphine Drug Allergy 1 [facility] Repository (20 sources) Gadolinium-Contai brenda Contrast Media Propensity to adverse reactions to drug 3 [facility] Medications Current Medications Medication Drug Class(es) Dates Sig (Normalized) Sig (Original) acetaminophen 500 mg oral tablet (20 sources) Start: 11-08-2023 take 1 tablet by mouth every eight hours 1,000 mg, oral, Every 8 hours, First dose on Tue11/08/23 at 1645 Start: 11-07-2023 End: 11-08-2023 take 1000 mg by mouth every six hours 1,000 mg, oral, Every 6 hours scheduled, First dose on Tue11/07/23 at 1800, Pre-Admission Testing Start: 08-03-2020 take 2 tablets by mo uth every six hours Acetaminophen (Tylenol Extra Strength) 500 mg Tablet Active 1000 MG PO Q6H August 02, 2020 11:00pm take 2 tablets by mo uth every six hours as needed for fever and pain acetaminophen (TYLENOL) 325 mg tablet Take 2 tablets (650 mg total) by mouth every 6 (six) hours as needed for fever or pain. Active End: 11-07-2023 take 650 mg rectal route every six hours as needed for fever acetaminophen (TYLENOL) 325 mg suppository Insert 2 suppositories (650 mg total) into the rectum every 6 (six) hours as needed for fever. 11/07/2023 Discontinued take 2 tablets by mo [facility] every four hours as needed acetaminophen 325 mg oral tablet ; 2 tab(s) orally every 4 hours, As Needed - for fever, for pain Quantity: 0 Refills: 0 Ordered: 30-May-2022 Ingrid Díaz Generic Substitution Allowed acetaminophen 325 mg / HYDROcodone bitartrate 5 mg oral tablet (14 sources) Opioid Agonist Start: 12-28-2023 End: 01-27-2024 take 1 tablet by mouth every four hours for pain HYDROcodone-acetaminophen ([place]) 5-325 MG tablet Indications: Severe pain Take 1 tablet by mouth every 4 (four) hours if needed for severe pain 180 tablet 12/28/2023 01/27/2024 Active Start: 05-06-2021 End: 07-26-2024 take 1 tablet by mouth every four hours as needed hydrocodone-acetaminophen 5 mg-325 mg or al tablet ; 1 tab(s) orally every 4 hours x 3 days, As Needed -for severe pain Quantity: 18 Refills: 0 Ordered: 06-May-2021 Suzan Ford Start: 06-May-2021 End: 08-May-2021 Status: Discontinued Generic Substitution Allowed Comments: Caution federal law prohibits the transfer of this drug to any person other than the person for whom it was prescribed.May cause drowsiness. Alcohol may intensify this effect. Use care when operating dangerous machinery.This product contains acetaminophen. Do not use with any other product containing acetaminophen to prevent possible liver damage.Using more of this medication than prescribed may cause serious breathing problems. Comment on above: Caution federal law prohibits the transfer of this drug to any person other than the person for whom it was prescribed.May cause drowsiness. Alcohol may intensify this effect. Use care when operating dangerous machinery.This product contains acetaminophen. Do not use with any other product containing acetaminophen to prevent possible liver damage.Using more of this medication than prescribed may cause serious breathing problems. 20 ml albumin human, skilled nursing 250 mg/ml injection (1 source) Human Serum Albumin Start: 25 g, intravenous, As needed, with hemodialysis, may give up to 2 doses for sbp albuterol 0.21 mg/ml inhalation solution (20 sources) beta2-Adrenergic Agonist Start: take 0.63 mg by inhalation every six hours as needed for wheezing Start: 08-03-2020 take 0.63 mg by inha lation every two hours Albuterol Sulfate Active 0.63 MG INHALATION Every 2 hours August 02, 2020 11:00pm take 2.5 mg by inhal ation every four hours as needed for dyspnea albuterol (PROVENTIL,VENTOLIN) 2.5 mg /3 mL (0.083 %) nebulizer solution Inhale 3 mL (2.5 mg total) by nebulization every 4 (four) hours as needed for shortness of breath. Active take 0.63 mg by inha lation every six hours as needed for wheezing albuterol (ACCUNEB) 0.63 mg/3 mL nebulizer solution Inhale 3 mL (0.63 mg total) by nebulization every 6 (six) hours as needed for wheezing. Active take 3 mL by inhalat ion three times daily albuterol 2.5 mg/3 mL (0.083%) inhalation solution ; 3 milliliter(s) intratracheal 3 times a day Quantity: 0 Refills: 0 Ordered: 30-May-2022 Ingrid Díaz Generic Substitution Allowed take 3 mL by inhalat ion every six hours as needed albuterol 2.5 mg/3 mL (0.083%) inhalation solution ; 3 milliliter(s) inhaled every 6 hours, As Needed - for shortness of breath Quantity: 0 Refills: 0 Ordered: 30-May-2022 Ingrid Díaz Generic Substitution Allowed albuterol 0.833 mg/ml / ipratropium bromide 0.167 mg/ml inhalation solution (1 source) Anticholinergic, beta2-Adrenergic Agonist Start: 03-25-2021 take 1 mL by inhalation four times daily Ipratropium-Albuterol Active 3 ML INHALATION Four times daily March 25, 2021 12:00am ALPRAZolam 0.5 mg oral tablet (20 sources) Benzodiazepine Start: 12-28-2023 End: 08-11-2024 take 1 tablet by mouth in the morning, then take 1 tablet by mouth in the evening, then take 1 tablet by mouth at bedtime ALPRAZolam (Xanax) 0.5 MG tablet Indications: Anxiety Take 1 tablet (0.5 mg) by mouth in the morning and 1 tablet (0.5 mg) in the evening and 1 tablet (0.5 mg) before bedtime. 90 tablet 3 04/13/2024 Active Start: 05-06-2021 End: 05-08-2021 take 1 tablet by mouth three times daily as needed for anxiety ALPRAZolam 0.5 mg oral tablet ; 1 tab(s) orally 3 times a day, As Needed -for severe anxiety Quantity: 9 Refills: 0 Ordered: 06-May-2021 Suzan Ford Start: 06-May-2021 End: 08-May-2021 Generic Substitution Allowed Comments: Avoid grapefruit and grapefruit juice while taking this medication.Caution federal law prohibits the transfer of this drug to any person other than the person for whom it was prescribed.Do not take this drug if you are .May cause drowsiness or dizziness. Start: 01-21-2021 End: 01-25-2021 take 1 tablet by mouth three times daily Alprazolam (Xanax) 0.25 mg Tablet Active 0.25 MG PO Three times daily 10 15January 25, 2021 10:40am End: 11-11-2023 take 1 tablet by mouth in the morning, then take 1 tablet by mouth at bedtime ALPRAZolam (XANAX) 1 mg tablet Indications: anxiety Take 1 tablet (1 mg total) by mouth in the morning and 1 tablet (1 mg total) before bedtime. Indications: anxious. 11/11/2023 Discontinued (Stop Taking at Discharge) take 1 tablet by yamilet th four times daily ALPRAZolam 0.5 mg oral tablet ; 1 tab(s) orally 4 times a day Quantity: 0 Refills: 0 Ordered: 30-May-2022 Ingrid Díaz Generic Substitution Allowed take 1 tablet by yamilet th every six hours Xanax 0.5 mg oral tablet ; 1 tab(s) orally every 6 hours Quantity: 0 Refills: 0 Ordered: 10-Dec-2021 Stalin Chávez Generic Substitution Allowed Comment on above: Avoid grapefruit and grapefruit juice while taking this medication.Caution federal law prohibits the transfer of this drug to any person other than the person for whom it was prescribed.Do not take this drug if you are .May cause drowsiness or dizziness. apixaban 2.5 mg oral tablet (20 sources) Factor Xa Inhibitor take 1 tablet by mouth in the morning, then take 1 tablet by mouth at bedtime apixaban (ELIQUIS) 2.5 mg tablet Take 1 tablet (2.5 mg total) by mouth in the morning and 1 tablet (2.5 mg total) before bedtime. Verified last dose with spring. Active ascorbic acid 100 mg / biotin 0.15 mg / calcium pantothenate 5 mg / folic acid 1 mg / niacin 20 mg / pyridoxine 10 mg / riboflavin 1.7 mg / thiamine mononitrate 1.5 mg / vitamin b12 0.006 mg oral capsule (4 sources) Nicotinic Acid, Vitamin B12, Vitamin C take 1 capsule by mouth once daily Nephrocaps oral capsule ; 1 cap(s) orally once a day Quantity: 0 Refills: 0 Ordered: 10-Dec-2021 Stalin Chávez Generic Substitution Allowed aspirin 81 mg oral tablet (20 sources) Platelet Aggregation Inhibitor, Nonsteroidal Anti-inflammatory Drug Start: take 81 mg by mouth once daily Aspirin Active 81 MG PO Daily August 02, 2020 11:00pm take 1 tablet by mouth in the mo rning aspirin 81 mg Take 1 tablet (81 mg total) by mouth in the morning. Verified last dose with spring. Active take 1 tablet by mouth once jenn y aspirin 81 mg oral tablet, chewable ; 1 tab(s) orally once a day Quantity: 0 Refills: 0 Ordered: 30-May-2022 Ingrid Díaz Generic Substitution Allowed take 1 tablet by mouth once jenn y Aspir 81 oral delayed release tablet ; 1 tab(s) orally once a day Quantity: 0 Refills: 0 Ordered: 10-Dec-2021 Stalin Chávez Generic Substitution Allowed atorvastatin 20 mg oral tablet (20 sources) HMG-CoA Reductase Inhibitor Start: 11-08-2023 take 20 mg by mouth once daily 20 mg, oral, Daily, First dose on Tue11/08/23 at 1800, Look-alike/sound-alike medication - verify indication for use. barium sulfate (E-Z-PAQUE) 96 % (w/w) powder 176 g (1 source) Start: 11-10-2023 176 g, oral, Once in imaging, contrast, barium sulfate (E-Z-PAQUE) 96 % (w/w) powder, Starting on Tue11/10/23 at 1016, For 1 dose barium sulfate (VARIBAR HONEY) 40 % (w/v) 29% (w/w) suspension 60 mL (1 source) Start: 11-10-2023 60 mL, oral, Once in imaging, contrast, barium sulfate (VARIBAR HONEY) 40 % (w/v) 29% (w/w) suspension, Starting on Tue11/10/23 at 1016, For 1 dose benzonatate 100 mg oral capsule (1 source) Non-narcotic Antitussive Start: 08-03-2020 take 1 capsule by mouth every eight hours Benzonatate (Tessalon Perles) 100 mg Capsule Active 100 MG PO Q8H August 02, 2020 11:00pm bisacodyl 10 mg rectal suppository (3 sources) Stimulant Laxative bisacodyl 10 mg rect al suppository ; 1 suppository(ies) rectal once a day, As Needed -for constipationPRN Reason: for congestion Quantity: 0 Refills: 0 Ordered: 30-May-2022 Ingrid Díaz Generic Substitution Allowed busPIRone hydrochloride 10 mg oral tablet (20 sources) Start: 08-03-2020 take 5 mg by mouth three times daily Buspirone Active 5 MG PO Three times daily August 02, 2020 11:00pm take 1 tablet by yamilet th in the morning, then take 1 tablet by mouth at bedtime busPIRone (BUSPAR) 10 mg tablet Take 1 tablet (10 mg total) by mouth in the morning and 1 tablet (10 mg total) before bedtime. Suspended take 1 tablet by mouth in the mo rning busPIRone (BUSPAR) 7.5 mg tablet Take 1 tablet (7.5 mg total) by mouth in the morning. Suspended calcium acetate 667 mg oral capsule (1 source) Start: 04-01-2021 take 1334 mg by mouth once at mealtime Calcium Acetate(Phosphat Bind) Active 1334 MG PO 3x/Day with meals 0 April 01, 2021 12:00am carvedilol 6.25 mg oral tablet (3 sources) alpha-Adrener gic Hanh, beta-Adrenerg ic Hanh take 1 tablet by mouth twice daily carvedilol 6.25 mg oral tablet ; 1 tab(s) orally 2 times a day Quantity: 0 Refills: 0 Ordered: 30-May-2022 Ingrid Díaz Generic Substitution Allowed chlorhexidine gluconate 1.2 mg/ml mouthwash (1 source) Start: 11-08-2023 15 mL, mouth/throat, 2 times daily, First dose on Tue11/08/23 at 0800, Swish undiluted for 30 seconds, then spit. cholecalciferol 0.05 mg oral tablet (20 sources) Vitamin D Start: 11-08-2023 take 2000 [IU] by mouth once daily 2,000 Units, oral, Daily, First dose on Tue11/08/23 at 1730 Start: 04-01-2021 take 50 ug by mouth once daily Cholecalciferol (Vitamin D3) Active 50 MCG PO Daily 0 April 01, 2021 12:00am End: 07-26-2024 take 2 tablets by mouth once daily in the morning cholecalciferol (VITAMIN D3) 1,000 units tablet Indications: vitamin D deficiency Take 2 tablets (2,000 Units total) by mouth in the morning. Indications: low vitamin D levels. 07/26/2024 Discontinued (Therapy completed) take 1 tablet by yamilet th every other day cholecalciferol, vitamin D3, 400 units tablet Indications: vitamin D deficiency Take 1 tablet (400 Units total) by mouth every other day Indications: low vitamin D levels. 0 Active take 1 tablet by yamilet th once daily Vitamin D3 50 mcg (2000 intl units) oral tablet ; 1 tab(s) orally once a day Quantity: 0 Refills: 0 Ordered: 10-Dec-2021 Stalin Chávez Generic Substitution Allowed ciprofloxacin 250 mg oral tablet (2 sources) Quinolone Antimicrobial Start: 02-14-2023 End: 05-15-2023 take 1 tablet by mouth in the morning ciprofloxacin HCl (CIPRO) 250 mg tablet Indications: Infected prosthetic mesh of abdominal wall, sequela , Pseudomonas aeruginosa infection , Elevated C-reactive protein (CRP) , ESRD on hemodialysis ([facility]) Take 1 tablet (250 mg total) by mouth in the morning for 90 days. 90 tablet 0 02/14/2023 05/15/2023 Active cyclobenzaprine hydrochloride 10 mg oral tablet (20 sources) Muscle Relaxant Start: 11-14-2023 take 1 tablet by mouth every six hours cyclobenzaprine (FLEXERIL) 10 mg tablet Take 1 tablet (10 mg total) by mouth every 6 (six) hours. 11/14/2023 Active Start: 11-07-2023 End: 11-09-2023 take 5 mg by mouth three times daily 5 mg, oral, 3 times daily, First dose on Tue11/07/23 at 2200 take 2 tablets by mo [facility] every six hours cyclobenzaprine (FLEXERIL) 5 mg tablet Take 2 tablets (10 mg total) by mouth every 6 (six) hours. Active take 1 tablet by yamilet every six hours cyclobenzaprine 5 mg oral tablet ; 1 tab(s) orally every 6 hours Quantity: 0 Refills: 0 Ordered: 30-May-2022 Ingrid Díaz Generic Substitution Allowed 0.5 ml darbepoetin linda 0.2 mg/ml prefilled syringe (5 sources) Erythropoiesis-stimulating Agent Start: 11-09-2023 inject 100 ug by subcutaneous injection every week 100 mcg, subcutaneous, Weekly, First dose on Tue11/09/23 at 1200, Indications: ESRD on Dialysis Start: 04-01-2021 Darbepoetin Al fa In Polysorbat (Aranesp (In Polysorbate)) 40 mcg/mL Solution Active 80 MCG IV-PUSH We@0900 0 April 01, 2021 12:00am Start: 08-03-2020 End: 04-01-2021 inject 60 ug by subcutaneous injection every other week Darbepoetin Linda In Polysorbat (Aranesp (In Polysorbate)) 60 mcg/mL Solution Discontinued 60 MCG SUBCUT EVERY 2 WEEKS August 02, 2020 11:00pm April 01, 2021 12:55pm End: 05-09-2023 inject 0.3 mL by subcutaneous injection once darbepoetin linda-polysorbate (ARANESP, IN POLYSORBATE,) 60 mcg/0.3 mL syringe Inject 0.3 mL (60 mcg total) under the skin every 14 (fourteen) days. 0 05/09/2023 Discontinued dicyclomine hydrochloride 10 mg oral capsule (20 sources) Anticholinergic dicyclomine (KAT TYL) 10 mg capsule Take 1 capsule (10 mg total) by mouth in the morning and 1 capsule (10 mg total) at noon and 1 capsule (10 mg total) before bedtime. Active diphenhydrAMINE hydrochloride 25 mg oral tablet (1 source) Histamine-1 Receptor Antagonist Start: 021 take 2 tablets by mouth every eight hours Diphenhydramine Hcl (Benadryl Allergy) 25 mg Tablet Active 50 MG PO Q8H March 25, 2021 12:00am docusate sodium 100 mg oral capsule (5 sources) Start: 021 take 1 capsule by mouth once daily Docusate Sodium (Colace) 100 mg Capsule Active 100 MG PO Daily March 25, 2021 12:00am docusate sodium 50 mg / sennosides, skilled nursing 8.6 mg oral tablet (20 sources) Start: 024 take 1 tablet by mouth once daily at bedtime sennosides-docusate sodium (SENOKOT-S) 8.6-50 mg Take 1 tablet by mouth once daily at bedtime. 11/11/2023 Active Start: 11-11-2022 End: 11-11-2023 take 1 tablet by mouth once as needed sennosides-docusate sodium (SENOKOT-S) 8.6-50 mg Take 1 tablet by mouth every 12 (twelve) hours as needed for constipation. 60 tablet 3 11/11/2022 11/11/2023 Discontinued DULoxetine 30 mg delayed release oral capsule (3 sources) Serotonin and Norepinephrine Reuptake Inhibitor take 1 capsule by mouth once daily DULoxetine 30 mg oral delayed release capsule ; 1 cap(s) orally once a day Quantity: 0 Refills: 0 Ordered: 27-Jan-2022 Stalin Chávez Generic Substitution Allowed ferrous sulfate 325 mg oral tablet (20 sources) Start: 12-26-19 24 take 1 tablet by mouth once daily at breakfast ferrous sulfate 325 (65 FE) mg tablet Take 1 tablet (325 mg total) by mouth daily with breakfast. 30 tablet 12/26/2023 Active Start: 11-11-2022 End: 05-09-2023 take 1 tablet by mouth in the morning, then take 1 tablet by mouth at mealtime ferrous sulfate 325 (65 FE) mg tablet Take 1 tablet (325 mg total) by mouth in the morning and 1 tablet (325 mg total) in the evening. Take with meals. 90 tablet 3 11/11/2022 05/09/2023 Discontinued Start: 01-25-2021 Ferrous Sulfat e Active 650 MG PO Q48H 0 January 25, 2021 10:40am Start: 08-03-2020 End: 01-25-2021 take 325 mg by mouth every twelve hours Ferrous Sulfate Discontinued 325 MG PO Q12H August 02, 2020 11:00pm January 25, 2021 10:43am FLUoxetine (16 sources) Serotonin Reuptake Inhibitor Start: 11-07-2023 take 30 mg by mouth once daily 30 mg, oral, Daily, First dose on Tue11/07/23 at 2100, Look-alike/sound-alike medication - verify indication for use. Start: 08-03-2020 take 40 mg by mouth once daily Fluoxetine Active 40 MG PO Daily August 02, 2020 11:00pm FLUoxetine (PROz ac) 20 mg capsule Take 30 mg by mouth in the morning. Suspended take 3 tablets by mo uth once daily FLUoxetine 20 mg oral tablet ; 3 tab(s) orally once a day Quantity: 0 Refills: 0 Ordered: 30-May-2022 Ingrid Díaz Generic Substitution Allowed take 3 capsules by m outh once daily PROzac 20 mg oral capsule ; 3 cap(s) orally once a day Quantity: 0 Refills: 0 Ordered: 10-Dec-2021 Stalin Chávez Generic Substitution Allowed folic acid 1 mg oral tablet (19 sources) Start: 12-27-2023 take 1 tablet by mouth in the morning folic acid (FOLVITE) 1 mg tablet Take 1 tablet (1 mg total) by mouth in the morning. 30 tablet 3 12/27/2023 Active furosemide 40 mg oral tablet (2 sources) Loop Diuretic Start: 04-01-2021 take 40 mg by mouth twice daily Furosemide Active 40 MG PO BID@0800,1600 0 April 01, 2021 12:00am take 1 tablet by mouth twice kimmy ly furosemide 80 mg oral tablet ; 1 tab(s) orally 2 times a day Quantity: 0 Refills: 0 Ordered: 10-Dec-2021 Stalin Chávez Generic Substitution Allowed gabapentin 100 mg oral capsule (20 sources) Anti-epileptic Agent Start: 08-03-2020 take 100 mg by mouth three times daily 100 mg, oral, 3 times daily, First dose on Tue11/09/23 at 0845, Look-alike/sound-alike medication - verify indication for use. Glycerin (1 source) Non-Standardized Chemical Allergen Start: 08-03-2020 Glycerin (Adult) Active 1 SUPP AR Daily August 02, 2020 11:00pm 1 supp rectally guaiFENesin 20 mg/ml oral solution (8 sources) Start: 08-03-2020 take 10 mg by mouth every four hours Guaifenesin Active 10 MG PO Q4H August 02, 2020 11:00pm take 10 mL by mouth every six hours as needed guaiFENesin 100 mg/5 mL oral liquid ; 10 milliliter(s) orally every 6 hours, As Needed - for cough Quantity: 0 Refills: 0 Ordered: 30-May-2022 Ingrid Díaz Generic Substitution Allowed take 1 tablet by mouth twice kimmy ly guaiFENesin 600 mg oral tablet, extended release ; 1 tab(s) orally 2 times a day Quantity: 0 Refills: 0 Ordered: 30-May-2022 Ingrid Díaz Generic Substitution Allowed take 1 tablet by yamilet th every twelve hours Mucinex 600 mg oral tablet, extended rel ease ; 1 tab(s) orally every 12 hours Quantity: 0 Refills: 0 Ordered: 10-Dec-2021 Stalin Chávez Generic Substitution Allowed hydrALAZINE hydrochloride 50 mg oral tablet (3 sources) Arteriolar Vasodilator Start: 01-25-2021 take 100 mg by mouth twice daily Hydralazine Active 100 MG PO Twice daily 0 January 25, 2021 10:40am Start: 01-21-2021 End: 01-25-2021 take 50 mg by mouth twice daily Hydralazine Discontinued 50 MG PO Twice daily January 20, 2021 11:00pm January 25, 2021 10:43am Start: 08-03-2020 End: 08-13-2020 take 10 mg by mouth three times daily Hydralazine Discontinued 10 MG PO Three times daily August 02, 2020 11:00pm August 13, 2020 11:44am 0.5 ml HYDROmorphone hydrochloride 1 mg/ml prefilled syringe (1 source) Opioid Agonist Start: 11-08-2023 take 0.5 mg intravenously every two hours as needed for pain 0.5 mg, intravenous, Every 2 hour PRN, severe pain - pain scale 7-10, Starting on Tue11/08/23 at 1800, If IV push, administer over over 2 to 3 minutes. Patient denies any adverse reactions to opioids in the past Look-alike/sound-alike medication - verify indication for use. sodium hypochlorite 1.25 mg/ml topical solution (1 source) Start: 11-09-2023 1 Application, topical, 2 times daily, First dose on Tue11/09/23 at 1300, To abdominal wound per wound care instructions. 3 ml insulin glargine 100 unt/ml pen injector (20 sources) Insulin Analog Start: 11-11-2023 inject 32 [IU] by subcutaneous injection in the morning insulin glargine (LANTUS, SEMGLEE) 100 unit/mL (3 mL) insulin pen Inject 32 Units under the skin in the morning and 32 Units in the evening. Inject before meals. 11/11/2023 Active Start: 11-11-2022 inject 20 [IU] by andrews bcutaneous injection in the morning insulin glargine (LANTUS, BASAGLAR) 100 unit/mL (3 mL) insulin pen Inject 20 Units under the skin in the morning and 20 Units in the evening. Inject before meals. 15 mL 12 11/11/2022 Active Start: 11-11-2022 End: 11-11-2023 inject 20 [IU] by subcutaneous injection in the morning insulin glargine (LANTUS, BASAGLAR) 100 unit/mL (3 mL) insulin pen Inject 20 Units under the skin in the morning and 20 Units in the evening. Inject before meals. 15 mL 12 11/11/2022 11/11/2023 Discontinued 3 ml insulin lispro 100 unt/ml pen injector (20 sources) Insulin Analog Start: 11-11-2022 insulin lispro (HumaLOG) 100 unit/mL insulin pen [...] 351-400 mg/dL, give 10 units. 15 mL 11/11/2022 Active Start: 11-11-2022 End: 07-26-2024 inject 2-8 [IU] by subcutaneous injection once daily at bedtime insulin lispro (HumaLOG) 100 unit/mL insulin pen Inject 2-8 Units under the skin nightly. Bedtime hyperglycemia dosing. For glucose 201-250 mg/dL, give 2 units. For glucose 251-300 mg/dL, give 4 units. For glucose 301-350 mg/dL, give 6 units. For glucose 351-400 mg/dL, give 8 units. 15 mL 11/11/2022 07/26/2024 Discontinued (Duplicate Listing) HumaLOG 100 unit s/mL subcutaneous solution ; per sliding [id number] [id number] Quantity: 0 Refills: 0 Ordered: 10-Dec-2021 Stalin Chávez Generic Substitution Allowed insulin lispro (HumaLOG) 100 unit/mL insulin pen (4 sources) Start: 11-11-2022 insulin lispro (HumaLOG) 100 unit/mL insulin pen [...] 351-400 mg/dL, give 10 units. 15 mL 11/11/2022 Active Start: 11-11-2022 inject 2-8 [IU] by s ubcutaneous injection once daily at bedtime insulin lispro (HumaLOG) 100 unit/mL insulin pen Inject 2-8 Units under the skin nightly. Bedtime hyperglycemia dosing. For glucose 201-250 mg/dL, give 2 units. For glucose 251-300 mg/dL, give 4 units. For glucose 301-350 mg/dL, give 6 units. For glucose 351-400 mg/dL, give 8 units. 15 mL 11/11/2022 Active Lactobacillus acidophilus (2 sources) Start: 01-21-2021 take 1 tablet by mouth twice daily Lactobacillus Acidophilus Active 1 TAB PO Twice daily January 20, 2021 11:00pm take 1 tablet by mouth once jenn y lactobacillus acidophilus oral tablet ; 1 tab(s) orally once a day Quantity: 0 Refills: 0 Ordered: 10-Dec-2021 Stalin Chávez Generic Substitution Allowed lactobacillus acidophilus 25 [id number] unt / pectin 100 mg oral tablet (6 sources) acidophilus-pect in, citrus 25 million cell -100 mg tablet Take by mouth in the morning and at noon and in the evening. Take with meals. Active acidophilus-pect in, citrus 25 million cell -100 mg tablet Take by mouth 3 (three) times a day with meals. Active lactulose 667 mg/ml oral solution (3 sources) Osmotic Laxative take 30 mL by mouth once daily as needed for constipation lactulose 10 g/15 mL oral syrup ; 30 milliliter(s) orally once a day, As Needed - for constipation Quantity: 0 Refills: 0 Ordered: 30-May-2022 Ingrid Díaz Generic Substitution Allowed levETIRAcetam 1000 mg oral tablet (20 sources) Start: 12-26-19 take 1 tablet by mouth in the morning, then take 1 tablet by mouth at bedtime levETIRAcetam (KEPPRA) 1000 mg tablet Take 1 tablet (1,000 mg total) by mouth in the morning and 1 tablet (1,000 mg total) before bedtime. 60 tablet 12/26/2023 Active Start: 11-07-2023 take 1 tablet by yamilet th three times daily levETIRAcetam (KEPPRA) 500 mg tablet Take 1 tablet (500 mg total) by mouth 3 (three) times a day. 11/12/2023 Suspended Start: 08-13-2020 take 1 tablet by yamilet th three times daily Levetiracetam (Keppra) 500 mg Tablet Active 500 MG PO Three times daily 0 August 13, 2020 11:42am Start: 08-03-2020 End: 08-13-2020 take 3 tablets by mouth three times daily Levetiracetam (Keppra) 500 mg Tablet Discontinued 1500 MG PO Three times daily August 02, 2020 11:00pm August 13, 2020 11:44am take 0.5 tablet by m outh three times daily levETIRAcetam (KEPPRA) 1000 mg tablet Take 0.5 tablets (500 mg total) by mouth 3 (three) times a day. Suspended levothyroxine sodium 0.175 mg oral tablet (20 sources) l-Thyroxine Start: 11-08-2023 175 mcg, oral, Daily, First dose on Tue11/08/23 at 0600, Look-alike/sound-alike medication. Verify indication for use Administer on empty stomach at least ONE hour before or TWO hours after food Enteral Feeding: For 7 days or less of tube feeding- do NOT hold tube feedings, after 7 days- hold tube feedings ONE hour before and ONE hour after administration DOES NOT APPLY TO NEONATES Monitor thyroid function tests weekly Start: 08-03-2020 take 100 ug by mouth once jenn y Levothyroxine Active 100 MCG PO Daily August 02, 2020 11:00pm take 1 tablet by yamilet th in the morning levothyroxine (SYNTHROID, LEVOTHROID) 125 MCG tablet Take 1 tablet (125 mcg total) by mouth in the morning. 0 Active take 1 tablet by yamilet th once daily levothyroxine 88 mcg (0.088 mg) oral tablet ; 1 tab(s) orally once a day Quantity: 0 Refills: 0 Ordered: 10-Dec-2021 Stalin Chávez Generic Substitution Allowed loperamide hydrochloride 2 m g oral tablet (12 sources) Opioid Agonist loperamide (IMOD IUM A-D) 2 mg tablet Take 1-2 tablets [...] not exceed 4 tabs per day). Active loperamide (IMOD IUM A-D) 2 mg tablet Take 1-2 tablets (2-4 mg total) by mouth 4 (four) times a day as needed for diarrhea (give 2 tabs after first loose stool, may repeat 1 tab after each consecutive loos stool, do not exceed 4 tabs per day). Active magnesium oxide 400 mg oral tablet (7 sources) Start: 11-08-2023 take 400 mg by mouth once daily 400 mg, oral, Daily, First dose on Tue11/08/23 at 1230 meclizine hydrochloride 25 mg oral tablet (3 sources) Antiemetic take 1 tablet by mouth every eight hours as needed meclizine 25 mg oral tablet ; 1 tab(s) orally every 8 hours, As Needed - for dizziness Quantity: 0 Refills: 0 Ordered: 18-Jun-2022 Domingo Murguia Generic Substitution Allowed take 1 tablet by yamilet th every twelve hours as needed meclizine 25 mg oral tablet ; 1 tab(s) orally every 12 hours, As Needed - for dizziness Quantity: 0 Refills: 0 Ordered: 30-May-2022 Ingrid Díaz Generic Substitution Allowed meropenem (1 source) Penem Antibacterial Start: 06-21-2022 End: 06-28-2022 take 1 g intravenously every twenty-four hours meropenem ; 1 gram(s) intravenously every 24 hours - for 1 week Quantity: 0 Refills: 0 Ordered: 21-Jun-2022 Leticia Naqvi Start: 21-Jun-2022 End: 28-Jun-2022 Generic Substitution Allowed methocarbamol 500 mg oral tablet (1 source) Muscle Relaxant Start: 11-09-2023 take 500 mg by mouth three times daily 500 mg, oral, 3 times daily, First dose on Tue11/09/23 at 0845 0.3 ml methoxy polyethylene glycol-epoetin beta 0.25 mg/ml prefilled syringe (20 sources) epoetin beta, methoxy peg (MIRCERA) 75 mcg/0.3 mL syringe Inject 75 mcg as directed every 14 (fourteen) days. Not listed from spring Active 24 hr metoprolol succinate 25 mg extended release oral tablet (17 sources) beta-Adrenergic Hanh Start: 01-20-2024 take 1 tablet by mouth every twenty-four hours in the morning metoprolol succinate XL (TOPROL XL) 25 mg 24 hr tablet Take 1 tablet (25 mg total) by mouth in the morning. 30 tablet 3 01/20/2024 Active Start: 01-25-2021 Metoprolol Tar trate Active 50 MG PO Daily 0 January 25, 2021 10:42am Hold for HR 60 or less and/or SBP less than 100 Start: 08-03-2020 End: 01-25-2021 Metoprolol Tartrate Disconti nued 100 MG PO Daily August 02, 2020 11:00pm January 25, 2021 10:43am Hold for HR 60 or less and/or SBP less than 100 take 1 tablet by yamilet th once daily Metoprolol Tartrate 50 mg oral tablet ; 1 tab(s) orally once a day Quantity: 0 Refills: 0 Ordered: 10-Dec-2021 Stalin Chávez Generic Substitution Allowed midodrine hydrochloride 10 mg oral tablet (20 sources) alpha-Adrenergic Agonist Start: 11-11-2023 10 mg, g-tube, 3 times daily, First dose (after last modification) on Tue11/11/23 at 1400, Hold for SBP greater than 130. Look-alike/sound-alike medication - verify indication for use. Start: 11-08-2023 End: 11-11-2023 5 mg, g-tube, 3 times daily, First dose (after last modification) on Tue11/11/23 at 0600, Hold for SBP greater than 130. Look-alike/sound-alike medication - verify indication for use. Start: 11-11-2022 midodrine (PRO AMATINE) 10 mg tablet Take 1 tablet (10 mg total) by mouth as needed (Hemodialysis - PRN at initiation and midway through dialysis session). 90 tablet 3 11/11/2022 Active take 1 tablet by yamilet th once as needed midodrine 10 mg oral tablet ; 1 tab(s) orally once, As Needed for hypotension Quantity: 0 Refills: 0 Ordered: 30-May-2022 Ingrid Díaz Generic Substitution Allowed multivitamin (THERAGRAN) tablet (12 sources) take 1 tablet by yamilet th in the morning multivitamin (THERAGRAN) tablet Take 1 tablet by mouth in the morning. Active take 1 tablet by mouth in the mo rning multivitamin (THERAGRAN) tablet Take 1 tablet by mouth in the morning. Suspended naloxone hydrochloride 40 mg/ml nasal spray (4 sources) Opioid Antagonist Start: 11-11-2022 naloxone (NA RCAN) 4 mg/actuation spray,non-aerosol nasal spray Administer 1 spray (4 mg total) into alternating nostrils as needed for opioid reversal. 3 each 11/11/2022 Active naloxone (NARCAN) 4 mg/actuation spray,non-aerosol nasal spray (20 sources) Start: 11-11-2022 naloxone (NARC AN) 4 mg/actuation spray,non-aerosol nasal spray Administer 1 spray (4 mg total) into alternating nostrils as needed for opioid reversal. 3 each 11/11/2022 Suspended Start: 11-11-2022 naloxone (NARC AN) 4 mg/actuation spray,non-aerosol nasal spray Administer 1 spray (4 mg total) into alternating nostrils as needed for opioid reversal. 3 each 11/11/2022 Active Start: 11-11-2022 naloxone (NARC AN) 4 mg/actuation spray,non-aerosol nasal spray Administer 1 spray (4 mg total) into alternating nostrils as needed for opioid reversal. 3 each 11/11/2022 nystatin [id number] unt/ml topical cream (4 sources) Polyene Antifungal Start: 08-03-2020 apply 1 [IU] topically twice daily Nystatin Active 1 UNIT TOPICAL Twice daily August 02, 2020 11:00pm apply to breast folds and neck nystatin 100,000 units/g topical powder ; Apply topically to affected area every 8 hours, As Needed - for rash Quantity: 0 Refills: 0 Ordered: 30-May-2022 Ingrid Díaz Generic Substitution Allowed oxyCODONE hydrochloride 5 mg oral tablet (20 sources) Opioid Agonist Start: 09-24-2024 End: 10-24-2024 take 1 tablet by mouth every six hours for pain oxyCODONE (Roxicodone) 5 MG immediate release tablet Indications: Severe pain Take 1 tablet (5 mg) by mouth every 6 (six) hours if needed for severe pain 120 tablet 09/24/2024 10/24/2024 Active Start: 07-11-2024 End: 08-26-2024 take 1 tablet by mouth every six hours for pain oxyCODONE (Roxicodone) 5 MG immediate release tablet Indications: Severe pain Take 1 tablet (5 mg) by mouth every 6 (six) hours if needed for severe pain 120 tablet 07/27/2024 08/26/2024 Active Start: 04-11-2024 End: 06-28-2024 take 1 tablet by mouth every six hours for pain oxyCODONE (Roxicodone) 5 MG immediate release tablet Indications: Severe pain Take 1 tablet (5 mg) by mouth every 6 (six) hours if needed for severe pain 120 tablet 05/29/2024 06/28/2024 Active Start: 02-07-2024 End: 03-08-2024 take 1 tablet by mouth every four hours for pain oxyCODONE (Roxicodone) 5 MG immediate release tablet Indications: Severe pain Take 1 tablet (5 mg) by mouth every 4 (four) hours if needed for severe pain 180 tablet 02/07/2024 03/08/2024 Active Start: 11-25-2023 End: 12-29-2023 take 1 tablet by mouth every four hours as needed for pain oxyCODONE (ROXICODONE) 5 mg immediate release tablet Indications: Shock, unspecified (CMS-HCC) , Shock (CMS-HCC) Take 1 tablet (5 mg total) by mouth every 4 (four) hours as needed for pain for up to 3 days. Max Daily Amount: 30 mg 18 tablet 12/26/2023 12/29/2023 Active Start: 11-11-2023 End: 11-18-2023 take 5 mL by mouth every six hours as needed for pain oxyCODONE (ROXICODONE) 5 mg/5 mL solution Indications: Fall Take 5 mL (5 mg total) by mouth every 6 (six) hours as needed for pain for up to 7 days. Max Daily Amount: 20 mg 100 mL 11/11/2023 11/18/2023 Active Start: 11-08-2023 take 5 mg by mouth e very four hours as needed for pain 5 mg, oral, Every 4 hours PRN, moderate pain - pain scale 4-6, Starting on Tue11/08/23 at 1759, Patient denies any adverse reactions to opioids in the past Look-alike/sound-alike medication - verify indication for use. Start: 06-21-2022 take 1 tablet by yamilet th every four hours as needed oxyCODONE 5 mg oral tablet ; 1 tab(s) orally every 4 hours, As needed, for pain Quantity: 0 Refills: 0 Ordered: 21-Jun-2022 Leticia Naqvi Start: 21-Jun-2022 Generic Substitution Allowed Start: 01-25-2021 take 5 mg by mouth e very four hours Oxycodone Active 5 MG PO Q4H 7 7 January 25, 2021 Start: 01-21-2021 End: 01-25-2021 take 10 mg by mouth every four hours Oxycodone Discontinued 10 MG PO Q4H January 20, 2021 11:00pm January 25, 2021 10:40am take 1 capsule by mo ut every six hours as needed for pain oxyCODONE (OXY-IR) 5 mg capsule Take 1 capsule (5 mg total) by mouth every 6 (six) hours as needed for pain. Active take 1 capsule by mo uth every four hours as needed for pain oxyCODONE (OXY-IR) 5 mg capsule Take 1 capsule (5 mg total) by mouth every 4 (four) hours as needed for pain. Max Daily Amount: 30 mg Active End: 11-11-2023 take 5 mg by mouth every six hours as needed oxycodone HCl (OXYCODONE ORAL) Take 5 mg by mouth every 6 (six) hours as needed. 11/11/2023 Discontinued (Stop Taking at Discharge) pantoprazole 40 mg injection (20 sources) Proton Pump Inhibitor Start: 11-11-2023 40 mg, intravenous, Every 24 hours scheduled, First dose on Tue11/11/23 at 0900, Look-alike/sound-alike medication - verify indication for use., Indication: Other (GLEN) Start: 08-03-2020 End: 01-25-2021 take 1 tablet by mouth once daily Pantoprazole (Protonix) 40 mg Tablet,Delayed Release (Dr/Ec) Discontinued 40 MG PO Daily August 02, 2020 11:00pm January 25, 2021 10:43am take 1 tablet by yamilet twice daily pantoprazole 40 mg oral delayed release tablet ; 1 tab(s) orally 2 times a day Quantity: 0 Refills: 0 Ordered: 30-May-2022 Ingrid Díaz Generic Substitution Allowed phenytoin 50 mg chewable tablet (1 source) Anti-epileptic Agent Start: 08-03-2020 take 1 tablet by mouth three times daily Phenytoin (Dilantin Infatabs) 50 mg Tablet,Chewable Active 50 MG PO Three times daily August 02, 2020 11:00pm polyethylene glycol 3350 [id number] mg powder for oral solution (20 sources) Osmotic Laxative Start: 03-25-2021 Polyethylene Glycol 3350 (Miralax) 17 gram Powder In Packet Active 17 GM PO Daily March 25, 2021 12:00am MiraLax oral pow clemencia for reconstitution ; 17 gram(s) orally 2 times a day, As Needed - for constipation Quantity: 0 Refills: 0 Ordered: 30-May-2022 Ingrid Díaz Generic Substitution Allowed promethazine hydrochloride 25 mg oral tablet (4 sources) Phenothiazine take 1 tablet by mouth three times weekly promethazine 25 mg oral tablet ; 1 tab(s) orally 3 times a week on Tue, , Quantity: 0 Refills: 0 Ordered: 30-May-2022 Ingrid Díaz Generic Substitution Allowed risperiDONE 1 mg oral tablet (15 sources) Atypical Antipsychotic Start: 08-04-19 take 1 mg by mouth once daily 1 mg, oral, Daily, First dose on Tue11/07/23 at 2100, Look-alike/sound-ali ke medication - verify indication for use. take 1 tablet by mouth twice kimmy ly risperiDONE 1 mg oral tablet ; 1 tab(s) orally 2 times a day Quantity: 0 Refills: 0 Ordered: 30-May-2022 Ingrid Díaz Generic Substitution Allowed sevelamer carbonate 800 mg o ral tablet (20 sources) Phosphate Binder sevelamer (RENV REBEKAH) 800 mg tablet Take 1 tablet (800 mg total) by mouth in the morning and 1 tablet (800 mg total) at noon and 1 tablet (800 mg total) in the evening. Take with meals. Active sevelamer (RENVE LA) 800 mg tablet Take 4 tablets (3,200 mg total) by mouth in the morning and 4 tablets (3,200 mg total) at noon and 4 tablets (3,200 mg total) in the evening. Take with meals. Suspended take 2 tablets by mo ut three times daily at mealtime sevelamer hydrochloride 800 mg oral tabl et ; 2 tab(s) orally 3 times a day (with meals) Quantity: 0 Refills: 0 Ordered: 18-Jun-2022 Domingo Murguia Generic Substitution Allowed take 2 tablets by mo ut three times daily at mealtime Renvela 800 mg oral tablet ; 2 tab(s) or ally 3 times a day (with meals) Quantity: 0 Refills: 0 Ordered: 10-Dec-2021 Stalin Chávez Generic Substitution Allowed sevelamer carbonate (RENVELA) packet 3,200 mg (1 source) Start: 11-10-2023 3,200 mg, naso gastric, 3 times daily with meals, First dose on Tue11/10/23 at 0830, Look-alike/sound-alike medication - verify indication for use. Give with meals. Administer other drugs 1 hour before or 3 hours after. Mix powder with water prior to administration. Mix with 30 mL of water. Stir vigorously to suspend just prior to drinking; powder does not dissolve. Drink within 30 minutes of preparing or resuspend prior to drinking. Note: for 400 mg (half packet doses) mix half packet with 30 mL of water. Enteral Feeding: Lanthanum and sevelamer TABLETS are not recommended to be crushed and administered in feeding tube due to risk of clogging tube Alternative: sevelamer carbonate suspension/packets or calcium carbonate per tube sodium bicarbonate 650 mg oral tablet (1 source) Start: 01-21-2021 take 650 mg by mouth twice daily Sodium Bicarbonate Active 650 MG PO Twice daily January 20, 2021 11:00pm sodium citrate (4 sources) Start: 11-07-2023 2 mL, intraven ous, Every 96 hours, First dose on Tue11/07/23 at 1800, Hemodialysis, Venous Lumen. IVP equal to lumen volume, up to a maximum of 2 mL, every 96 hours. (Direct Care RN: flush and change caps every 96 hours) Start: 11-07-2023 2 mL, intraven ous, Every 96 hours, First dose on Tue11/07/23 at 1800, Hemodialysis, Arterial Lumen. IVP equal to lumen volume, up to a maximum of 2 mL, every 96 hours. (Direct Care RN: flush and change caps every 96 hours) Start: 11-07-2023 2 mL, intraven ous, As needed, line care, Starting on Tue11/07/23 at 1754, Hemodialysis, Venous Lumen. IVP equal to lumen volume, up to a maximum of 2 mL, after use. (stock saw operator: flush and change caps after each hemodialysis treatment) Start: 11-07-2023 2 mL, intraven ous, As needed, line care, Starting on Tue11/07/23 at 1754, Hemodialysis, Arterial Lumen. IVP equal to lumen volume, up to a maximum of 2 mL, after use. (stock saw operator: flush and change caps after each hemodialysis treatment) sulfamethoxazole 800 mg / trimethoprim 160 mg oral tablet (6 sources) Dihydrofolate Reductase Inhibitor Antibacterial, Sulfonamide Antimicrobial take 1 tablet by mouth once in the morning sulfamethoxazole-trimethoprim (BACTRIM DS) 800-160 mg per tablet Take 1 tablet by mouth in the morning and 1 tablet before bedtime. Not included on JUN from spring. Active vancomycin 1000 mg injection (3 sources) Glycopeptide Antibacterial Star t: 06-09 End: 06-10 vancomycin 1 g intravenous injection ; 1 gram(s) intravenously Tuesday, , Tuesday with dialysis until July 15. Quantity: 1 Refills: 0 Ordered: 21-Jun-2022 Leticia Naqvi Start: 21-Jun-2022 End: 02-Jul-2022 Generic Substitution Allowed Start: 01-25-2021 End: 03-25-2021 Vancomycin (Firvanq) 50 mg/m L Recon Soln Discontinued 125 MG PO Four times daily 120 January 24, 2021 11:00pm March 25, 2021 12:27am Start: 08-03-2020 End: 08-13-2020 take 750 mg intravenously once daily Vancomycin Discontinued 750 MG IV Daily August 02, 2020 11:00pm August 13, 2020 11:44am started 07/30/20 for 10 days end 08/09/20 Vancomycin - RPh to Dose - I V Piggy Back (1 source) Start: 06-09-2022 Vancomycin - R Ph to Dose - IV Piggy Back ; Vancomycin 1g 3 times a week with each dialysis treatment for 6 weeks total Quantity: 0 Refills: 0 Ordered: 09-Jun-2022 Maxwell George Start: 09-Jun-2022 Generic Substitution Allowed Zinc Oxide (1 source) zinc oxide topic al cream ; Apply topically to affected area 3 times a day Quantity: 0 Refills: 0 Ordered: 30-May-2022 Ingrid Díaz Generic Substitution Allowed Completed/Discontinued Medications Medication Drug Class(es) Dates Sig (Normalized) Sig (Original) acetaminophen 325 mg / oxyCODONE hydrochloride 5 mg oral tablet (3 sources) Opioid Agonist Start: 05-06-2021 End: 05-08-2021 take 1 tablet by mouth every six hours as needed oxycodone-acetamin ophen 5 mg-325 mg oral tablet ; 1 tab(s) orally every 6 hours x 3 days, As Needed -for severe pain Quantity: 12 Refills: 0 Ordered: 06-May-2021 Suzan Ford Start: 06-May-2021 End: 08-May-2021 Generic Substitution Allowed Comments: Caution federal law prohibits the transfer of this drug to any person other than the person for whom it was prescribed.May cause drowsiness. Alcohol may intensify this effect. Use care when operating dangerous machinery.This prescription cannot be refilled.This product contains acetaminophen. Do not use with any other product containing acetaminophen to prevent possible liver damage.Using more of this medication than prescribed may cause serious breathing problems. Comment on above: Caution federal law prohibits the transfer of this drug to any person other than the person for whom it was prescribed.May cause drowsiness. Alcohol may intensify this effect. Use care when operating dangerous machinery.This prescription cannot be refilled.This product contains acetaminophen. Do not use with any other product containing acetaminophen to prevent possible liver damage.Using more of this medication than prescribed may cause serious breathing problems. alteplase (CATHFLO) 2 mg injection - Pyxis Override Pull (1 source) Start: 11-09-2023 End: 11-09-2023 Starting on Tue11/09/23 at 1245, For 1 dose, Devi Whitlock: elvininet override Look-alike/sound-a like medication - verify indication for use. alteplase (CATHFLO) injection 2 mg (2 sources) Start: 11-09-2023 End: 11-09-2023 2 mg, intravenous, Once, On Tue11/09/23 at 1000, For 1 dose, Mix with 2.2mL of sterile water. Gently mix (Do not shake) until medication dissolved. Draw up the amount to match the venous lumen. Post dialysis Look-alike/sound-a like medication - verify indication for use., Indications: vascular access thrombosis Start: 11-09-2023 End: 11-09-2023 2 mg, intravenous, Once, On Tue11/09/23 at 1000, For 1 dose, Mix with 2.2mL of sterile water. Gently mix (Do not shake) until medication dissolved. Draw up the amount to match the arterial lumen. Post dialysis Look-alike/sound-alike medication - verify indication for use. barium sulfate (VARIBAR NECTAR) 40 % (w/v) suspension 10 mL (1 source) Start: 11-10-2023 End: 11-10-2023 10 mL, oral, Once in imaging, contrast, barium sulfate (VARIBAR NECTAR) 40 % (w/v) suspension, Starting on Tue11/10/23 at 1016, For 1 dose barium sulfate (VARIBAR PUDDING) 40 % (w/v), 30% (w/w) oral paste 60 mL (1 source) Start: 11-10-2023 End: 11-10-2023 60 mL, oral, Once in imaging, contrast, barium sulfate (VARIBAR PUDDING) 40 % (w/v), 30% (w/w) oral paste, Starting on Tue11/10/23 at 1016, For 1 dose barium sulfate (VARIBAR THIN HONEY) 40 %(w/v), 29% (w/w)(1500 CPS) suspension 20 mL (1 source) Start: 11-10-2023 End: 11-10-2023 take 20 mL by mouth once 20 mL, oral, Once in imaging, contrast, Radiology, Starting on Tue11/10/23 at 1016, For 1 dose barium sulfate (VARIBAR THIN) 81 % (w/w) powder 148 g (1 source) Start: 11-10-2023 End: 11-10-2023 148 g, oral, Once in imaging, contrast, barium sulfate (VARIBAR THIN) 40 % (w/v) powder, Starting on Tue11/10/23 at 1016, For 1 dose bumetanide 2 mg oral tablet (20 sources) Loop Diuretic Start: 12-26-2023 End: 07-26-2024 take 1 tablet by mouth once daily bumetanide (BUMEX) 2 mg tablet Take 1 tablet (2 mg total) by mouth daily. HOLD until follow-up with Nephrology. 12/26/2023 07/26/2024 Discontinued (Therapy completed) Start: 11-12-2023 take 1 tablet by yamilet th once daily bumetanide (BUMEX) 2 mg tablet Take 1 tablet (2 mg total) by mouth daily. 11/12/2023 Suspended Start: 08-13-2020 End: 04-01-2021 take 2 mg by mouth twice daily Bumetanide Discontinued 2 MG PO BID@0800,1600 August 12, 2020 11:00pm April 01, 2021 12:55pm Start: 08-03-2020 End: 08-13-2020 take 1 tablet by mouth once daily Bumetanide (Bumex) 1 mg Tablet Discontinued 1 MG PO Daily August 02, 2020 11:00pm August 13, 2020 11:44am take 2 tablets by mo ut once daily bumetanide (BUMEX) 1 mg tablet Take 2 tablets (2 mg total) by mouth daily. Active cefTRIAXone 1000 mg injection (3 sources) Cephalosporin Antibacterial End: 07-26-2024 cefTRIAXone (ROCEPHIN) 100 mg/mL injection Inject 10 mL (1,000 mg total) into the appropriate muscle. For 5 days start 05/03/2024 07/26/2024 Discontinued (Therapy completed) 2 ml famotidine 10 mg/ml injection (1 source) Histamine-2 Receptor Antagonist Start: 11-07-2023 End: 11-08-2023 20 mg, intravenous, Every 48 hours, First dose on Tue11/07/23 at 1700, Pre-Admission Testing, Pharmacy to adjust dose if Creatinine Clearance is less than 50 mL/min Dilute to total volume of 5 mL with 0.9% sod chl and administer IVP over 2 minutes. folic acid-B qsok-F-zvabf-zinc (DIALYVITE) 3-70-15 mg-mcg-mg tablet (16 sources) take 1 tablet by mouth in the evening folic acid-B jzyv-X-gdogr-zinc (DIALYVITE) 3-70-15 mg-mcg-mg tablet Take 1 tablet by mouth in the evening. Suspended take 1 tablet by mouth in the ev ening folic acid-B emkw-G-failm-zinc (DIALYVITE) 3-70-15 mg-mcg-mg tablet Take 1 tablet by mouth in the evening. Active take 1 tablet by mouth in the ev ening folic acid-B hrwh-B-oysxc-zinc (DIALYVITE) 3-70-15 mg-mcg-mg tablet Take 1 tablet by mouth in the evening. folic acid-B cpl h-I-jzdpt-zinc (DIALYVITE) 3-70-15 mg-mcg-mg tablet Take by mouth daily. 0 Active 1 ml heparin sodium, porcine 5000 unt/ml injection (8 sources) Unfractionated Heparin, Anti-coagulant Start: 11-11-2023 End: 11-24-2023 inject 1.5 mL by subcutaneous injection every eight hours heparin sodium,porcine (heparin, porcine,) 5,000 unit/mL injection Indications: Fall Inject 1.5 mL (7,500 Units total) under the skin every 8 (eight) hours. 190 mL 11/11/2023 11/24/2023 Discontinued (Duplicate order) Start: 11-10-2023 7,500 Units, s ubcutaneous, Every 8 hours scheduled, First dose (after last modification) on Tue11/10/23 at 1400, Creatinine clearance less than 10 mL/min, immediate post-op patient, or increased risk of bleeding. Notify prescriber if INR greater than 1.9, hemoglobin less than 10 mg/dL, aPTT greater than 40 seconds, and/or platelet count less than 100,000/mm Look-alike/sound-alike medication - verify indication for use. Observe for bleeding. Start: 11-09-2023 End: 11-10-2023 5,000 Units, subcutaneous, E very 8 hours scheduled, First dose on Tue11/09/23 at 0600, Creatinine clearance less than 10 mL/min, immediate post-op patient, or increased risk of bleeding. Notify prescriber if INR greater than 1.9, hemoglobin less than 10 mg/dL, aPTT greater than 40 seconds, and/or platelet count less than 100,000/mm Look-alike/sound-alike medication - verify indication for use. Observe for bleeding. inject 1 mL by subcu taneous injection twice daily heparin 5000 units/mL injectable solution ; 1 milliliter(s) subcutaneous 2 times a day Quantity: 0 Refills: 0 Ordered: 30-May-2022 Ingrid Díaz Generic Substitution Allowed heparin 5000 uni ts/0.5 mL injectable solution ; 1 milliliter(s) injectable 2 times a day Quantity: 0 Refills: 0 Ordered: 10-Dec-2021 Stalin Chávez Generic Substitution Allowed 3 ml insulin detemir 100 unt/ml pen injector (2 sources) Insulin Analog Start: 01-25-2021 End: 03-25-2021 inject 10 [IU] by subcutaneous injection once daily Insulin Detemir U-100 Discontinued 10 UNIT SUBCUT Daily 0 January 25, 2021 10:40am March 25, 2021 12:29am Start: 08-03-2020 End: 01-25-2021 inject 12 [IU] by subcutaneous injection twice daily Insulin Detemir U-100 Discontinued 12 UNIT SUBCUT Twice daily August 02, 2020 11:00pm January 25, 2021 10:43am isosorbide dinitrate 20 mg oral tablet (2 sources) Nitrate Vasodilator Start: 08-03-2020 End: 08-13-2020 Isosorbide Dinitrate Discontinued 40 MG PO Daily August 02, 2020 11:00pm August 13, 2020 11:44am give with 20mg for total of 60mg Start: 08-03-2020 End: 08-13-2020 Isosorbide Dinitrate Discont inued 20 MG PO Daily August 02, 2020 11:00pm August 13, 2020 11:44am give with 40mg for total of 60mg lacosamide 50 mg oral tablet (20 sources) Anti-epileptic Agent Start: 12-11-2023 take 1 tablet by mouth in the morning, then take 1 tablet by mouth at bedtime lacosamide (VIMPAT) 50 mg tablet Take 1 tablet (50 mg total) by mouth in the morning and 1 tablet (50 mg total) before bedtime. 12/11/2023 Suspended Start: 11-09-2023 50 mg, nasogas tric, 2 times daily, First dose on Tue11/09/23 at 1000 Start: 11-07-2023 End: 11-09-2023 take 1 tablet by mouth twice daily 50 mg, oral, 2 times daily, First dose on Tue11/07/23 at 2100, Swallow tablets whole; do not divide. Start: 08-03-2020 take 50 mg by mouth twice jenn y Lacosamide Active 50 MG PO Twice daily August 02, 2020 11:00pm take 0.5 tablet by m outh in the morning, then take 0.5 tablet by mouth at bedtime lacosamide (VIMPAT) 100 mg tablet Take 0.5 tablets (50 mg total) by mouth in the morning and 0.5 tablets (50 mg total) before bedtime. Suspended levoFLOXacin 750 mg oral tablet (5 sources) Quinolone Antimicrobial End: 07-26-2024 take 1 tablet by mouth in the morning levoFLOXacin (LEVAQUIN) 750 mg tablet Take 1 tablet (750 mg total) by mouth in the morning. 07/26/2024 Discontinued (Therapy completed) loratadine 10 mg oral tablet (1 source) Start: 08-03-2020 End: 08-13-2020 take 10 mg by mouth once daily Loratadine Discontinued 10 MG PO Daily August 02, 2020 11:00pm August 13, 2020 11:44am Magnesium Hydroxide (1 source) Start: 08-03-2020 End: 08-13-2020 Magnesium Hydroxide (Milk Of Magnesia) 400 mg/5 mL Suspension Discontinued 2400 MG PO August 02, 2020 11:00pm August 13, 2020 11:44am give for constipation Day 3 without BM 50 ml magnesium sulfate 40 mg/ml injection (1 source) Start: 11-08-2023 End: 11-08-2023 2,000 mg, intravenous, at 25 mL/hr, Administer over 120 Minutes, Once, On Tue11/08/23 at 0215, For 1 dose, Infuse each gram over 60 minutes. melatonin 3 mg oral tablet (3 sources) Start: 08-03-2020 End: 08-13-2020 take 6 mg by mouth once daily at bedtime Melatonin Discontinued 6 MG PO Daily at bedtime August 02, 2020 11:00pm August 13, 2020 11:44am End: 05-09-2023 take 6 mg by mouth once daily melatonin 12 mg tablet T alem 6 mg by mouth daily. 0 05/09/2023 Discontinued Menthol / Zinc Oxide (1 source) Start: 08-03-2020 End: 03-25-2021 Menthol-Zinc Oxide (Calmoseptine) 0.44-20.6 % Ointment Discontinued 1 APPLIC TOPICAL Twice daily August 02, 2020 11:00pm March 25, 2021 12:27am metOLazone 5 mg oral tablet (2 sources) Thiazide-like Diuretic Start: 01-21-2021 End: 04-01-2021 take 5 mg by mouth once daily Metolazone Discontinued 5 MG PO Daily January 21, 2021 2:13pm April 01, 2021 12:55pm Start: 08-13-2020 End: 01-21-2021 take 5 mg by mouth twice daily Metolazone Discontinued 5 MG PO Twice daily August 12, 2020 11:00pm January 21, 2021 2:13pm mupirocin 0.02 mg/mg topical ointment (20 sources) RNA Synthetase Inhibitor Antibacterial Start: 10-20-2023 End: 07-26-2024 mupirocin (BACTROBAN) 2 % ointment Apply 1 Application topically in the morning. 10/20/2023 07/26/2024 Discontinued (Therapy completed) Start: 10-20-2023 mupirocin (ISMAEL TROBAN) 2 % ointment 10/20/2023 Active Start: 03-25-2021 Mupirocin Calc ium Active 1 APPLIC TOPICAL Twice daily March 25, 2021 12:00am Start: 08-03-2020 End: 08-13-2020 Mupirocin Calcium (Bactroban ) 2 % Cream Discontinued 1 APPLIC TOPICAL Every shift August 02, 2020 11:00pm August 13, 2020 11:44am nitroglycerin 0.3 mg sublingual tablet (1 source) Nitrate Vasodilator Start: 08-03-2020 End: 03-25-2021 Nitroglycerin (Nitrostat) 0.3 mg Tablet, Sublingual Discontinued 0.3 MG SUBLINGUAL August 02, 2020 11:00pm March 25, 2021 12:26am Repeat in 5 minutes x3 if no relief ondansetron 4 mg oral tablet (20 sources) Serotonin-3 Receptor Antagonist Start: 08-03-2020 End: 08-13-2020 take 1 tablet by mouth every eight hours Ondansetron Hcl (Zofran) 4 mg Tablet Discontinued 4 MG PO Q8H August 02, 2020 11:00pm August 13, 2020 11:44am take 1 tablet by yamilet th every six hours as needed for nausea and vomiting ondansetron (ZOFRAN) 4 mg tablet Take 1 tablet (4 mg total) by mouth every 6 (six) hours as needed for nausea or vomiting. Suspended piperacillin 3000 mg / tazobactam 375 mg injection (1 source) Penicillin-class Antibacterial, beta Lactamase Inhibitor Start: 08-03-2020 End: 08-13-2020 take 3.375 g intravenously every six hours Piperacillin-Tazobactam (Zosyn) 3.375 gram Recon Soln Discontinued 3.375 GM IV Q6H August 02, 2020 11:00pm August 13, 2020 11:44am start on07/30/20 for 10 days end 08/09/20 microencapsulated potassium chloride 20 meq extended release oral tablet (20 sources) End: 07-26-2024 take 1 tablet by mouth in the morning potassium chloride (KLOR-CON M 20) 20 MEQ CR tablet Take 1 tablet (20 mEq total) by mouth in the morning. 07/26/2024 Discontinued (Therapy completed) predniSONE 20 mg oral tablet (4 sources) End: 11-11-2023 take 1 tablet by mouth in the morning predniSONE (DELTASONE) 20 mg tablet Take 1 tablet (20 mg total) by mouth in the morning. 11/11/2023 Discontinued (Stop Taking at Discharge) 1000 ml sodium chloride 9 mg/ml injection (11 sources) Start: 11-09-2023 End: 11-09-2023 250 mL, hemodialysis, at 900 mL/hr, Continuous, Starting on Tue11/09/23 at 0815, Hemodialysis, as priming solution for hemodialysis tubing. Start: 11-08-2023 End: 11-10-2023 3 mL/hr, intra-arterial, Con tinuous, Starting on Tue11/08/23 at 0415 Start: 11-07-2023 End: 11-08-2023 500 mL, intravenous, at 968 mL/hr, Administer over 31 Minutes, Once, On Tue11/08/23 at 0915, For 1 dose Start: 11-07-2023 End: 11-08-2023 3 mL, intravenous, Every 12 hours scheduled, First dose on Tue11/07/23 at 2100, Pre-Admission Testing Start: 11-07-2023 10 mL, intrave nous, Every 96 hours, First dose on Tue11/07/23 at 1800, Hemodialysis, Venous Lumen. Aspirate lumen and discard volume THEN 0.9% Sodium Chloride 10 mL IVP THEN 4% sodium citrate (0.2 grams/5 mL) IVP equal to lumen volume every 96 hours. (Direct Care RN: Flush and change caps every 96 hours) Start: 11-07-2023 10 mL, intrave nous, As needed, line care, Starting on Tue11/07/23 at 1754, Hemodialysis, Venous Lumen. 0.9% Sodium Chloride 10 mL IVP THEN 4% sodium citrate (0.2 grams/5 mL) IVP equal to lumen volume after use. (stock saw operator: flush and change caps after each hemodialysis treatment) sodium zirconium cyclosilicate 21895 mg powder for oral suspension (1 source) Start: 11-07-2023 End: 11-10-2023 10 g, oral, Daily with lunch, First dose on Tue11/07/23 at 1715, Empty entire contents of the packet(s) into a glass with 3 tablespoons (45 mL) or more water. Stir well and drink immediately; if powder remains in the glass, add water, stir and drink immediately; repeat until no powder remains. Administer other oral medications 2 or more hours before or 2 hours after dose. spironolactone 25 mg oral tablet (1 source) Aldosterone Antagonist Start: 01-25-2021 End: 03-25-2021 take 12.5 mg by mouth once daily Spironolactone Discontinued 12.5 MG PO Daily 0 January 24, 2021 11:00pm March 25, 2021 12:27am triamcinolone acetonide 0.25 mg/ml topical cream (1 source) Corticosteroid Start: 08-03-2020 End: 08-13-2020 Triamcinolone Acetonide Discontinued 1 APPLIC TOPICAL Every shift August 02, 2020 11:00pm August 13, 2020 11:44am apply to BLE for cellulitis vancomycin (VANCOCIN) 1,500 mg in sodium chloride 0.9 % 500 mL IVPB-MBP (1 source) Start: 11-09-2023 End: 11-09-2023 take 1500 mg intravenously every twelve hours 1,500 mg, intravenous, at 333 mL/hr, Administer over 90 Minutes, Every 12 hours, First dose on Tue11/09/23 at 0300, For 1 dose, Pharmacy to adjust per renal function. Administer 12 hours after pre-op dose for total of 2 doses including pre-op dose. For patient weight 100 kg or greater. Ok to discontinue post op vanco if patient's renal function is low enough that initial preop dose is sufficient - please inform ordering provider if order is discontinued - thanks! VESICANT (YELLOW) ADD-VANTAGE/MBP- Discard 24 hours after activating; dissolve drug prior to administration, Indication: Surgical prophylaxis Problems Active Problems Problem Classification Problem Date Documented Da te Episodic/Chronic Acute and unspecified renal failure (2 sources) Renal failure syndrome; Translations: [Unspecified kidney failure] Onset: 06-28-2024 03-24-2021 Chronic Acute myocardial infarction (20 sources) Myocardial infarction; Translations: [Non-ST elevation (NSTEMI) myocardial infarction] Onset: 11-05-2022 11-05-2022 Chronic Administrative/social admission (1 source) Dietary counseling and surveillance; Translations: [Dietary counseling and surveillance] Onset: 06-22-2022 Episodic Allergic reactions (4 sources) Allergy status to narcotic agent status; Translations: [Allergy status to other drugs, medicaments and biological substances status] Onset: 12-12-2021 Episodic Anxiety disorders (5 sources) Anxiety; Translations: [Anxiety state, unspecified] Onset: 06-22-2022 05-06-2021 Chronic Bacterial infection; unspecified site (2 sources) Bacteremia; Translations: [Methicillin resistant Staphylococcus aureus infection as the cause of diseases classified elsewhere] Onset: 06-22-2022 Episodic Cardiac dysrhythmias (7 sources) Paroxysmal atrial fibrillation; Translations: [Atrial arrhythmia] Onset: 06-01-2022 01-20-2024 Chronic Chronic kidney disease (20 sources) Chronic kidney disease, unspecified; Translations: [End-stage renal disease] Onset: 01-19-2021 12-11-2021 Chronic Chronic kidney disease (4 sources) Chronic kidney disease 05-30-2022 Comment on above: ESRD ON DIALYSIS N18 .6 Chronic obstructive pulmonary disease and bronchiectasis (3 sources) Acute exacerbation of chronic obstructive airways disease; Translations: [Chronic airway obstruction, not elsewhere classified] Onset: 06-22-2022 06-02-2022 Chronic Chronic ulcer of skin (20 sources) Pressure ulcer of unspecified site, unspecified stage; Translations: [Skin ulcer] Onset: 08-26-2020 12-19-2023 Chronic Coagulation and hemorrhagic disorders (2 sources) Thrombocytopenia, unspecified; Translations: [Thrombocytopenia, unspecified] Onset: 06-09-2022 Chronic Complications of surgical procedures or medical care (4 sources) Acute respiratory distress syndrome; Translations: [Other pulmonary insufficiency, not elsewhere classified, following trauma and surgery] Onset: 06-03-2022 06-02-2022 Episodic Conduction disorders (3 sources) Right bundle branch block; Translations: [Right bundle branch block] Onset: 06-22-2022 06-17-2022 Chronic Congestive heart failure; nonhypertensive (4 sources) Chronic diastolic (congestive) heart failure; Translations: [Acute on chronic diastolic heart failure] Onset: 06-22-2022 01-21-2021 Chronic Coronary atherosclerosis and other heart disease (20 sources) Coronary arteriosclerosis; Translations: [Atherosclerotic heart disease of [place] coronary artery without angina pectoris] Onset: 11-05-2022 08-03-2020 Chronic Deficiency and other anemia (2 sources) Anemia in chronic kidney disease; Translations: [Anemia in chronic kidney disease] Onset: 06-22-2022 Chronic Deficiency and other anemia (1 source) Iron deficiency anemia secondary to blood loss (chronic); Translations: [Iron deficiency anemia secondary to blood loss (chronic)] Onset: 12-16-2023 Chronic Deficiency and other anemia (2 sources) Deficiency and other anemia 06-05-2022 Diabetes mellitus with complications (3 sources) Type 2 diabetes mellitus with diabetic chronic kidney disease; Translations: [Other specified diabetes mellitus with diabetic chronic kidney disease] Onset: 01-31-2022 01-21-2021 Chronic Diabetes mellitus without complication (20 sources) Type 2 diabetes mellitus; Translations: [Type 2 diabetes mellitus without complications] Onset: 11-05-2022 08-03-2020 Chronic Disorders of lipid metabolism (1 source) Hyperlipidemia, unspecified; Translations: [Hyperlipidemia, unspecified] Onset: 06-01-2022 Chronic Epilepsy; convulsions (2 sources) Epilepsy, unspecified, not intractable, without status epilepticus; Translations: [Seizure disorder] Onset: 06-22-2022 08-04-2020 Chronic Essential hypertension (2 sources) Essential hypertension; Translations: [Essential (primary) hypertension] Onset: 01-20-2024 01-20-2024 Chronic Fluid and electrolyte disorders (16 sources) Hypervolemia; Translations: [Other fluid overload] Onset: 06-01-2022 12-11-2021 Episodic Hypertension with complications and secondary hypertension (5 sources) Hypertensive heart disease without heart failure; Translations: [Hypertensive heart and chronic kidney disease with heart failure and with stage 5 chronic kidney disease, or end stage renal disease] Onset: 01-31-2022 06-18-2022 Chronic Intestinal infection (1 source) Clostridium difficile diarrhea; Translations: [Enterocolitis due to Clostridium difficile, not specified as recurrent] 01-24-2021 Episodic Menopausal disorders (3 sources) Postmenopausal bleeding; Translations: [Postmenopausal bleeding] Onset: 06-01-2022 12-27-2023 Chronic Nonspecific chest pain (4 sources) Chest pain; Translations: [Chest pain, unspecified] Onset: 06-04-2022 06-04-2022 Episodic Other aftercare (2 sources) 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; Translations: [SENIOR CARE CURRENT USE OF ASPIRIN] Onset: 01-19-2021 Episodic Other aftercare (1 source) 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 (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) drug therapy; Translations: [OTH RESIDENTIAL SALES EXECUTIVE CURRENT DRUG THERAPY] Onset: 01-19-2021 Episodic Other aftercare (1 source) Encounter for palliative care; Translations: [Encounter for palliative care] Onset: 06-22-2022 Episodic Other aftercare (1 source) [facility] (current) use of insulin; Translations: [equipment 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 (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) use of insulin] Onset: 06-01-2022 Episodic Other diseases of kidney and ureters (1 source) Disorder of kidney and ureter, unspecified; Translations: [DISORDER KIDNEY AND URETER UNS] Onset: 01-19-2021 Episodic Other female genital disorders (1 source) Noninflammatory disorder of ovary, fallopian tube and broad ligament, unspecified; Translations: [Noninflammatory disord of ovary, fallop broad ligmt, unsp] Onset: 06-22-2022 Episodic Other gastrointestinal disorders (1 source) Other constipation; Translations: [Other constipation] Onset: 06-22-2022 Episodic Other gastrointestinal disorders (1 source) Intra-abdominal and pelvic swelling, mass and lump, unspecified site; Translations: [Intra-abd and pelvic swelling, mass and lump, unsp site] Onset: 06-09-2022 Episodic Other nervous system disorders (2 sources) Other chronic pain; Translations: [OTHER CHRONIC PAIN] Onset: 01-19-2021 Chronic Other nervous system disorders (1 source) Chronic pain syndrome; Translations: [Chronic pain syndrome] Onset: 06-01-2022 Chronic Other nutritional; endocrine; and metabolic disorders (1 source) Obesity, unspecified; Translations: [OBESITY UNSPECIFIED] Onset: 01-19-2021 Chronic Other nutritional; endocrine; and metabolic disorders (4 sources) Morbid (severe) obesity due to excess calories; Translations: [MORBID SEVERE OBES D/T EXCESS CAYDEN] Onset: 08-26-2020 Chronic Other nutritional; endocrine; and metabolic disorders (2 sources) Body mass index (BMI) 50.0-59.9, adult; Translations: [BODY MASS INDEX BMI 50.0-59.9 ADULT] Onset: 08-26-2020 Chronic Other nutritional; endocrine; and metabolic disorders (15 sources) Morbid obesity; Translations: [Morbid obesity] Onset: 11-05-2022 06-03-2022 Chronic Other nutritional; endocrine; and metabolic disorders (1 source) Morbid (severe) obesity with alveolar hypoventilation; Translations: [Morbid (severe) obesity with alveolar hypoventilation] Onset: 06-22-2022 Chronic Other nutritional; endocrine; and metabolic disorders (1 source) Body mass index (BMI) 60.0-69.9, adult; Translations: [Body mass index [BMI] 60.0-69.9, adult] Onset: 06-22-2022 Chronic Other nutritional; endocrine; and metabolic disorders (17 sources) Body mass index 40+ - severely obese; Translations: [Morbid (severe) obesity due to excess calories] Onset: 11-05-2022 01-06-2024 Chronic Other upper respiratory disease (4 sources) Tracheostomy present; Translations: [Tracheostomy status] 05-30-2022 Chronic Other upper respiratory disease (1 source) Tracheostomy status; Translations: [Tracheostomy status] Onset: 06-22-2022 Chronic Residual codes; unclassified (2 sources) Obstructive sleep apnea (adult) (pediatric); Translations: [OBSTRUCTIVE SLEEP APNEA] Onset: 08-26-2020 Chronic Residual codes; unclassified (1 source) Bilateral lower limb edema; Translations: [Localized edema] 03-24-2021 Episodic Residual codes; unclassified (1 source) Altered mental status; Translations: [Altered mental status, unspecified] 08-03-2020 Episodic Residual codes; unclassified (8 sources) Severe pain; Translations: [Pain, unspecified] 02-07-2024 Episodic Respiratory failure; insufficiency; arrest (adult) (20 sources) Dependence on respirator [ventilator] status; Translations: [Chronic respiratory failure, unspecified whether with hypoxia or hypercapnia] Onset: 01-19-2021 12-11-2021 Chronic Respiratory failure; insufficiency; arrest (adult) (3 sources) Respiratory failure; insufficiency; arrest (adult) 05-31-2022 Schizophrenia and other psychotic disorders (1 source) Schizophrenia, unspecified; Translations: [Schizophrenia, unspecified] Onset: 06-22-2022 Chronic Screening and history of mental health and substance abuse codes (2 sources) Personal history of nicotine dependence; Translations: [PERSONAL HISTORY OF NICOTINE DEPEND] Onset: 01-19-2021 Episodic Septicemia (except in labor) (6 sources) Septic shock; Translations: [Unspecified septicemia] Onset: 01-28-2022 06-06-2022 Episodic Thyroid disorders (1 source) Hypothyroidism, unspecified; Translations: [Hypothyroidism, unspecified] Onset: 06-22-2022 Chronic Unclassified (1 source) CONTACT W/AND (SUSP) EXPOS COVID-19; Translations: [CONTACT W/AND (SUSP) EXPOS COVID-19] Onset: 08-26-2020 Unclassified (2 sources) Abdominal pain, acute 05-06-2021 Unclassified (2 sources) LETHARGIC 06-10-2021 Comment on above: LETHARGIC Unclassified (2 sources) ABNORMAL LABS 06-19-2021 Comment on above: ABNORMAL LABS Unclassified (2 sources) SOB R06.02 12-10-2021 Comment on above: SOB R06.02 Unclassified (1 source) ESRF (end stage renal failure) 12-11-2021 Unclassified (2 sources) OTH DISORDERS OF ELECTROLYTE AND FLUID BALANCE, NEC HYPO-OSMOLALITY AND HYPONATREMIA 05-30-2022 Comment on above: OTH DISORDERS OF KATYA CTROLYTE AND FLUID BALANCE, NEC HYPO-OSMOLALITY AND HYPONATREMIA Unclassified (1 source) Electrolyte abnormality 05-30-2022 Unclassified (3 sources) Tracheostomy dependent 05-30-2022 Unclassified (1 source) Complications, mechanical, catheter, dialysis 05-30-2022 Unclassified (1 source) Dependent on ventilator 06-02-2022 Unclassified (1 source) Acute respiratory distress syndrome in adult 06-02-2022 Unclassified (2 sources) COPD with respiratory distress, acute 06-02-2022 Unclassified (1 source) Ventilator dependence 06-02-2022 Unclassified (2 sources) Primary hypertension 06-18-2022 Unclassified (1 source) Contact with and (suspected) exposure to COVID-19; Translations: [Contact with and (suspected) exposure to COVID-19] Onset: 06-22-2022 Unclassified (3 sources) Autogenerated Problem Onset: 07-25-2024 07-25-2024 Unclassified (1 source) Low Blood Count Onset: 12-16-2023 Unclassified (1 source) Leg Injury Onset: 11-07-2023 Unclassified (1 source) EMS Onset: 11-07-2023 Unclassified (1 source) Post-op Onset: 11-23-2023 Unclassified (1 source) 58 yo Female Onset: 11-07-2023 Urinary tract infections (2 sources) Urinary tract infection, site not specified; Translations: [UTI SITE NOT SPECIFIED] Onset: 01-19-2021 Episodic Past or Other Problems Problem Classification Problem Date Documented Da te Episodic/Chronic Abdominal pain (10 sources) Unspecified abdominal pain; Translations: [Acute abdominal pain] Onset: 1 Episodic Acute and unspecified renal failure (3 sources) Acute kidney failure, unspecified; Translations: [Acute renal failure syndrome] Onset: 2 08-04-2020 Episodic Aspiration pneumonitis; food/vomitus (1 source) Pneumonitis due to inhalation of food and vomit; Translations: [Pneumonitis due to inhalation of food and vomit] Onset: 2 Episodic Cardiac dysrhythmias (4 sources) Sinus tachycardia; Translations: [Other specified cardiac dysrhythmias] Onset: 4 06-02-2022 Episodic Complication of device; implant or graft (20 sources) Mechanical complication of dialysis catheter; Translations: [Mechanical complication of other vascular device, implant, and graft] Onset: 3 05-30-2022 Episodic Deficiency and other anemia (15 sources) Anemia; Translations: [Anemia, unspecified] Onset: 4 06-19-2021 Episodic Deficiency and other anemia (1 source) Anemia, unspecified; Translations: [Anemia, unspecified] Onset: 4 Episodic E Codes: Adverse effects of medical drugs (1 source) Adverse effect of penicillins, initial encounter; Translations: [Adverse effect of penicillins, initial encounter] Onset: 2 Episodic E Codes: Fall (20 sources) Fall; Translations: [Unspecified fall, initial encounter] Onset: 4 11-07-2023 Episodic E Codes: Place of occurrence (1 source) Unspecified place in hospital as the place of occurrence of the external cause; Translations: [Unsp place in hospital as place] Onset: 2 Episodic Fracture of lower limb (20 sources) Closed supracondylar fracture of femur; Translations: [Displaced supracondylar fracture with intracondylar extension of lower end of left femur, subsequent encounter for closed fracture with routine healing] Onset: 4 01-06-2024 Episodic Gastrointestinal hemorrhage (2 sources) Gastrointestinal hemorrhage; Translations: [Gastrointestinal hemorrhage, unspecified] Onset: 4 08-04-2020 Episodic Mood disorders (20 sources) Mood disorders Onset: 4 Resolved: 4 01-30-2024 Nausea and vomiting (1 source) Nausea; Translations: [NAUSEA] Onset: 1 Episodic Nutritional deficiencies (1 source) Deficiency of other specified B group vitamins; Translations: [Deficiency of other specified B group vitamins] Onset: 4 Episodic Other circulatory disease (1 source) H/O: heart disorder; Translations: [Personal history of other diseases of the circulatory system] 01-20-2024 Episodic Other circulatory disease (1 source) Hypotension, unspecified; Translations: [Hypotension, unspecified] Onset: 5 Episodic Other circulatory disease (1 source) Low blood pressure Onset: 5 Episodic Other circulatory disease (1 source) Personal history of other diseases of the circulatory system; Translations: [Personal history of other diseases of the circulatory system] Onset: 4 Episodic Other connective tissue disease (10 sources) Muscle pain; Translations: [Myalgia, unspecified site] Onset: 3 01-19-2023 Episodic Other gastrointestinal disorders (1 source) Diarrhea, unspecified; Translations: [DIARRHEA UNSPECIFIED] Onset: 1 Episodic Other gastrointestinal disorders (1 source) Diarrhea Onset: 4 Episodic Other injuries and conditions due to external causes (20 sources) Surgical wound finding; Translations: [Other injury of unspecified body region, initial encounter] Onset: 4 12-19-2023 Episodic Other injuries and conditions due to external causes (3 sources) Other injury of unspecified body region, initial encounter; Translations: [Other injury of unspecified body region, initial encounter] Onset: 4 Episodic Other lower respiratory disease (20 sources) Dyspnea; Translations: [Shortness of breath] Onset: 1 05-06-2021 Episodic Comment on above: S.O.B. S.O.B.. Other lower respiratory disease (4 sources) Shortness of breath Onset: 4 06-11-2021 Episodic Other lower respiratory disease (3 sources) Acute pulmonary edema; Translations: [Acute edema of lung, unspecified] Onset: 2 12-11-2021 Episodic Other lower respiratory disease (2 sources) Acute pulmonary edema; Translations: [Acute pulmonary edema] Onset: 2 Episodic Other lower respiratory disease (1 source) Shortness of breath; Translations: [Shortness of breath] Onset: 4 Episodic Other lower respiratory disease (1 source) Hypoxemia; Translations: [Hypoxemia] Onset: 4 Episodic Other screening for suspected conditions (not mental disorders or infectious disease) (1 source) Abnormal electrocardiogram [ECG] [EKG]; Translations: [Abnormal electrocardiogram (ECG) (EKG)] Onset: 4 Episodic Pneumonia (except that caused by tuberculosis or sexually transmitted disease) (20 sources) Pneumonia; Translations: [Pneumonia, organism unspecified] Onset: 3 12-11-2021 Episodic Comment on above: PNEUMONIA Residual codes; unclassified (1 source) Generalized edema; Translations: [GENERALIZED EDEMA] Onset: 1 Episodic Residual codes; unclassified (1 source) Acquired absence of other specified parts of digestive tract; Translations: [ACQ ABSENCE OTH PART DIGESTV TRACT] Onset: 1 Episodic Respiratory failure; insufficiency; arrest (adult) (3 sources) Hypoxemic respiratory failure; Translations: [Acute respiratory failure] Onset: 3 06-02-2022 Episodic Shock (20 sources) Severe sepsis with septic shock; Translations: [Shock] Onset: 3 12-18-2023 Episodic Skin and subcutaneous tissue infections (3 sources) Local infection of the skin and subcutaneous tissue, unspecified; Translations: [Local infection of the skin and subcutaneous tissue, unspecified] Onset: 4 Episodic Unclassified (1 source) ABN LABS 06-19-2021 Comment on above: ABN LABS Unclassified (1 source) NEED DIALYSIS CATH REPLACED 05-30-2022 Comment on above: NEED DIALYSIS CATH R EPLACED Unclassified (1 source) VENT PT. 06-18-2022 Comment on above: VENT PT. Results Test Name Value Interpretation Reference Range Facility 36on 09-20-2024 Asmita with [facility] would like a callback at [phone] [facility] Telephoneon 09-19-2024 Telephone [phone] Matthew Neal 1965 F Date Provider Department Center 09/19/2024 KADEEM MENARD [facility] Family History Family history unknown: Yes [facility] BASIC METABOLIC PANELon 08-10 Anion gap [Moles/Vol] 11 mmol/L Normal 5-15 [facility] Comment on above: Performed By: #### C BCA, BMP, PINR, 30586-7, 36798-3 #### [facility] ([id number]) [address] [place] [address] Calcium [Mass/Vol] 7.8 mg/dL Low 8.5-10.5 [facility] Comment on above: Performed By: #### C BCA, BMP, PINR, 49271-4, 91348-5 #### [facility] ([id number]) [address] [place] [address] 66983 Chloride [Moles/Vol] 92 mmol/L Low 98-109 [facility] Comment on above: Performed By: #### C BCA, BMP, PINR, 02655-8, 94315-5 #### [facility] ([id number]) [address] [place] [address] 71239 CO2 [Moles/Vol] 23 mmol/L Normal 22-32 [facility] Comment on above: Performed By: #### C BCA, BMP, PINR, 23434-9, 50985-2 #### [facility] ([id number]) [address] [place] [address] 30662 Creatinine [Mass/Vol] 2.93 mg/dL High 0.40-1.00 [facility] Comment on above: Result Comment: METH OD TRACEABLE TO IDMS STANDARD Performed By: #### C BCA, BMP, PINR, 17160-1, 14720-8 #### [facility] ([id number]) [address] [place] [address] 03601 GFR/1.73 sq M.predicted among non-blacks MDRD (S/P/Bld) [Vol rate/Area] 18 mL/min/{1.73_m2} Low >=60 [facility] Comment on above: Result Comment: eGFR not reported due to non-numeric value for Creatinine. Reported eGFR is based on the CKD-EPI 2020 equation that does not use a race coefficient. Performed By: #### C BCA, BMP, PINR, 11025-4, 37763-9 #### [facility] ([id number]) [address] [place] [address] Glucose [Mass/Vol] 175 mg/dL High 65-99 [facility] Comment on above: Performed By: #### C BCA, BMP, PINR, 84166-9, #### [facility] ([id number]) [address] [place] [address] 06594 Potassium [Moles/Vol] 4.0 mmol/L Normal 3.5-5.0 [facility] Comment on above: Performed By: #### C BCA, BMP, PINR, , #### [facility] ([id number]) [address] [place] [address] 71500 Sodium [Moles/Vol] 126 mmol/L Low 134-146 [facility] Comment on above: Performed By: #### C BCA, BMP, PINR, , #### [facility] ([id number]) [address] [place] [address] 25690 Urea nitrogen [Mass/Vol] 45 mg/dL High 5-23 [facility] Comment on above: Performed By: #### C BCA, BMP, PINR, , #### [facility] ([id number]) [address] [place] [address] 47481 Anion gap [Moles/Vol] 10 mmol/L Normal 5-15 [facility] Comment on above: Performed By: #### C BCA, BMP, PINR, 79756-3, #### [facility] ([id number]) [address] [place] [address] 66227 Calcium [Mass/Vol] 8.0 mg/dL Low 8.5-10.5 [facility] Comment on above: Performed By: #### C BCA, BMP, PINR, 36919-4, #### [facility] ([id number]) [address] [place] [address] 56835 Chloride [Moles/Vol] 89 mmol/L Low 98-109 [facility] Comment on above: Performed By: #### C BCA, BMP, PINR, 62138-1, 96574-7 #### [facility] ([id number]) [address] [place] [address] 73062 CO2 [Moles/Vol] 26 mmol/L Normal 22-32 [facility] Comment on above: Performed By: #### C BCA, BMP, PINR, 32663-6, 54372-9 #### [facility] ([id number]) [address] [place] [address] 98845 Creatinine [Mass/Vol] 2.98 mg/dL High 0.40-1.00 [facility] Comment on above: Result Comment: METH OD TRACEABLE TO IDMS STANDARD Performed By: #### C BCA, BMP, PINR, 68758-2, 97542-6 #### [facility] ([id number]) [address] [place] [address] 84624 GFR/1.73 sq M.predicted among non-blacks MDRD (S/P/Bld) [Vol rate/Area] 18 mL/min/{1.73_m2} Low >=60 [facility] Comment on above: Result Comment: eGFR not reported due to non-numeric value for Creatinine. Reported eGFR is based on the CKD-EPI 2021 equation that does not use a race coefficient. Performed By: #### C BCA, BMP, PINR, 64287-7, 54945-2 #### [facility] ([id number]) [address] [place] [address] 64154 Glucose [Mass/Vol] 185 mg/dL High 65-99 [facility] Comment on above: Performed By: #### C BCA, BMP, PINR, 09755-8, 64055-4 #### [facility] ([id number]) [address] [place] [address] 59254 Potassium [Moles/Vol] 4.0 mmol/L Normal 3.5-5.0 [facility] Comment on above: Performed By: #### C BCA, BMP, PINR, 49714-9, 11125-6 #### [facility] ([id number]) [address] [place] [address] 24859 Sodium [Moles/Vol] 125 mmol/L Low 134-146 [facility] Comment on above: Performed By: #### C BCA, BMP, PINR, 49368-1, #### [facility] ([id number]) [address] [place] [address] 99526 Urea nitrogen [Mass/Vol] 43 mg/dL High 5-23 [facility] Comment on above: Performed By: #### C BCA, BMP, PINR, , #### [facility] ([id number]) [address] [place] [address] 69814 CBC WITH AUTO DIFFERENTIALon 08-31-2024 BASOPHILS ABSOLUTE COUNT (10*3/UL) BY AUTOMATED COUNT 0.1 10*3/uL Normal 0.0-0.2 [facility] Comment on above: Performed By: #### C BCA, BMP, PINR, 51198-3, 60234-9 #### [facility] ([id number]) [address] [place] [address] 05967 BASOPHILS RELATIVE PERCENT BY AUTOMATED COUNT 0.7 % Normal [facility] Comment on above: Performed By: #### C BCA, BMP, PINR, 67059-3, #### [facility] ([id number]) [address] [place] [address] 58411 CELLAVISION DIFFERENTIAL TYPE AUTOMATED DIFFERENTIAL Normal [facility] Comment on above: Performed By: #### C BCA, BMP, PINR, , #### [facility] ([id number]) [address] [place] [address] 69581 Eosinophils (Bld) [#/Vol] 0.3 10*3/uL Normal 0.0-0.4 [facility] Comment on above: Performed By: #### C BCA, BMP, PINR, 78298-5, #### [facility] ([id number]) [address] [place] [address] 81898 EOSINOPHILS RELATIVE PERCENT BY AUTOMATED COUNT 2.8 % Normal [facility] Comment on above: Performed By: #### C BCA, BMP, PINR, , #### [facility] ([id number]) [address] [place] [address] 05527 Erythrocyte distribution width (RBC) [Ratio] 17.5 % High 11.5-15 [facility] Comment on above: Performed By: #### C BCA, BMP, PINR, , #### [facility] ([id number]) [address] [place] [address] 07880 Hematocrit (Bld) [Volume fraction] 28.1 % Low 35-47 [facility] Comment on above: Performed By: #### C BCA, BMP, PINR, 59190-7, 32356-5 #### [facility] ([id number]) [address] [place] [address] 82598 Hemoglobin (Bld) [Mass/Vol] 9.2 g/dL Low 11.7-15.5 [facility] Comment on above: Performed By: #### C BCA, BMP, PINR, 69266-6, 03784-5 #### [facility] ([id number]) [address] [place] [address] 01154 LYMPHOCYTES ABSOLUTE COUNT (10*3/UL) BY AUTOMATED COUNT 0.8 10*3/uL Low 1.0-3.5 [facility] Comment on above: Performed By: #### C BCA, BMP, PINR, , #### [facility] ([id number]) [address] [place] [address] 19982 LYMPHOCYTES RELATIVE PERCENT BY AUTOMATED COUNT 6.7 % Normal [facility] Comment on above: Performed By: #### C BCA, BMP, PINR, , #### [facility] ([id number]) [address] [place] [address] 37651 MCH (RBC) [Entitic mass] 31.3 pg Normal 27-34 [facility] Comment on above: Performed By: #### C BCA, BMP, PINR, , #### [facility] ([id number]) [address] [place] [address] 44576 MCHC (RBC) [Mass/Vol] 32.8 g/dL Normal 32-36 [facility] Comment on above: Performed By: #### C BCA, BMP, PINR, , #### [facility] ([id number]) [address] [place] [address] 84448 MCV (RBC) [Entitic vol] 95 fL Normal 80-100 [facility] Comment on above: Performed By: #### C BCA, BMP, PINR, , #### [facility] ([id number]) [address] [place] [address] 13064 MONOCYTES ABSOLUTE COUNT (10*3/UL) BY AUTOMATED COUNT 1.0 10*3/uL High 0.0-0.9 [facility] Comment on above: Performed By: #### C BCA, BMP, PINR, , #### [facility] ([id number]) [address] [place] [address] 78359 MONOCYTES RELATIVE PERCENT BY AUTOMATED COUNT 8.7 % Normal [facility] Comment on above: Performed By: #### C BCA, BMP, PINR, 57948-8, 10678-9 #### [facility] ([id number]) [address] [place] [address] 26606 NEUTROPHILS ABSOLUTE COUNT BY AUTOMATED COUNT 9.6 10*3/uL High 1.5-6.6 [facility] Comment on above: Performed By: #### C BCA, BMP, PINR, 75701-9, #### [facility] ([id number]) [address] [place] [address] 18223 NEUTROPHILS RELATIVE PERCENT BY AUTOMATED COUNT 81.1 % Normal [facility] Comment on above: Performed By: #### C BCA, BMP, PINR, 38298-2, #### [facility] ([id number]) [address] [place] [address] 77421 Platelet mean volume (Bld) [Entitic vol] 7.6 fL Normal 7-12 [facility] Comment on above: Performed By: #### C BCA, BMP, PINR, 48049-1, #### [facility] ([id number]) [address] [place] [address] 55731 Platelets (Bld) [#/Vol] 156 10*3/uL Normal 150-450 [facility] Comment on above: Performed By: #### C BCA, BMP, PINR, 91091-4, #### [facility] ([id number]) [address] [place] [address] 71072 RBC COUNT 2.95 X10E12/L Low 3.8-5.2 [facility] Comment on above: Performed By: #### C BCA, BMP, PINR, 57888-0, #### [facility] ([id number]) [address] [place] [address] 96342 WBC (Bld) [#/Vol] 11.9 10*3/uL High 4-11 [facility] Comment on above: Performed By: #### C BCA, BMP, PINR, 36452-2, 26025-0 #### [facility] ([id number]) [address] [place] [address] 98254 36on 08-06-2024 36 Re-scheduled EGD/Cln to 09/20/24 w/ Nicola d/t Cardiology appt 09/11/24 for clearance. #[id number] [facility] 36on 07-25-2024 36 Re-scheduled EGD/Cln/Acute on Chronic Anemia, 08/21/24 @1000, PTH, Dr. Danielle, [facility] ph: 08/14/24 @1000, Karla, #[id number], Spoke w/ Santa @ [employer] and faxed instructions: P) [phone], F) [phone]. To hold Eliquis 2 days prior to procedure. [facility] Telephoneon 07-25-2024 Telephone [phone] Matthew Neal 1965 F Date Provider Department Center 07/25/2024 [id number] MENDEZ [facility] Family History Family history unknown: Yes [facility] CBC AND AUTO DIFFon 06-28-20 25 ABSOLUTE BASOPHIL 0.1 X10E9/L Normal 0.0-0.2 [facility] Comment on above: Performed By: #### C BCA, BMP, PINR, 89011-4, 23565-4 #### [facility] ([id number]) [address] [place] [address] 67646 ABSOLUTE NEUTROPHIL 5.4 X10E9/L Normal 1.5-6.6 [facility] Comment on above: Performed By: #### C BCA, BMP, PINR, 07125-2, 82893-0 #### [facility] ([id number]) [address] [place] [address] 50230 Basophils/100 WBC (Bld) 0.7 % Normal [facility] Comment on above: Performed By: #### C BCA, BMP, PINR, , #### [facility] ([id number]) [address] [place] [address] 96481 Eosinophils (Bld) [#/Vol] 0.3 10*3/uL Normal 0.0-0.4 [facility] Comment on above: Performed By: #### C BCA, BMP, PINR, , #### [facility] ([id number]) [address] [place] [address] 27303 Eosinophils/100 WBC (Bld) 4.4 % Normal [facility] Comment on above: Performed By: #### C BCA, BMP, PINR, , #### [facility] ([id number]) [address] [place] [address] 26197 Erythrocyte distribution width (RBC) [Ratio] 19.3 % High 11.5-15.0 [facility] Comment on above: Performed By: #### C BCA, BMP, PINR, , #### [facility] ([id number]) [address] [place] [address] 13977 Hematocrit (Bld) [Volume fraction] 31.0 % Low 35-47 [facility] Comment on above: Performed By: #### C BCA, BMP, PINR, , #### [facility] ([id number]) [address] [place] [address] 64608 Hemoglobin (Bld) [Mass/Vol] 10.1 g/dL Low 11.7-15.5 [facility] [facility] Comment on above: Performed By: #### C BCA, BMP, PINR, , #### [facility] ([id number]) [address] [place] [address] 60064 Lymphocytes (Bld) [#/Vol] 1.1 10*3/uL Normal 1.0-3.5 [facility] Comment on above: Performed By: #### C BCA, BMP, PINR, , #### [facility] ([id number]) [address] [place] [address] 07903 Lymphocytes/100 WBC (Bld) 14.8 % Normal [facility] Comment on above: Performed By: #### C BCA, BMP, PINR, , #### [facility] ([id number]) [address] [place] [address] 52506 MCH (RBC) [Entitic mass] 29.7 pg Normal 27-34 [facility] Comment on above: Performed By: #### C BCA, BMP, PINR, , #### [facility] ([id number]) [address] [place] [address] 34038 MCHC (RBC) [Mass/Vol] 32.7 g/dL Normal 32-36 [facility] Comment on above: Performed By: #### C BCA, BMP, PINR, , #### [facility] ([id number]) [address] [place] [address] 62371 MCV (RBC) [Entitic vol] 91 fL Normal 80-100 [facility] Comment on above: Performed By: #### C BCA, BMP, PINR, , #### [facility] ([id number]) [address] [place] [address] 35338 Monocytes (Bld) [#/Vol] 0.3 10*3/uL Normal 0-0.9 [facility] Comment on above: Performed By: #### C BCA, BMP, PINR, 29563-3, 20606-6 #### [facility] ([id number]) [address] [place] [address] 05856 Monocytes/100 WBC (Bld) 4.0 % Normal [facility] Comment on above: Performed By: #### C BCA, BMP, PINR, 13446-0, #### [facility] ([id number]) [address] [place] [address] 81815 Neutrophils/100 WBC (Bld) 76.1 % Normal [facility] Comment on above: Performed By: #### C BCA, BMP, PINR, 57173-0, #### [facility] ([id number]) [address] [place] [address] 08545 Platelet mean volume (Bld) [Entitic vol] 8.1 fL Normal 7-12 [facility] Comment on above: Performed By: #### C BCA, BMP, PINR, 68112-0, 34398-8 #### [facility] ([id number]) [address] [place] [address] 42578 Platelets (Bld) [#/Vol] 157 10*3/uL Normal 150-450 [facility] Comment on above: Performed By: #### C BCA, BMP, PINR, 28177-9, 38468-0 #### [facility] ([id number]) [address] [place] [address] 57183 RBC COUNT 3.41 X10E12/L Low 3.80-5.20 [facility] Comment on above: Performed By: #### C BCA, BMP, PINR, 35570-7, 29730-8 #### [facility] ([id number]) [address] [place] [address] 24766 WBC (Bld) [#/Vol] 7.2 10*3/uL Normal 4.0-11.0 [facility] Comment on above: Performed By: #### C BCA, BMP, PINR, 12133-7, 77398-9 #### [facility] ([id number]) [address] [facility], [place] [address] AFB CULTURE(CONCENTRATED)on 04-27-2024 Mycobacterium sp identified Org specific cx Nom (Unsp spec) AFB SMEAR NO ACID FAST BACILLI (CONCENTRATED SMEAR) CULTURE RESULTS NO ACID FAST BACILLI ISOLATED IN 8 WEEKS Normal [facility] Comment on above: Performed By: #### 5 43-9 ####[facility] ([id number])[address], [place] [address] AND DIFFon 2024 BODY FLUID COMMENT Interpreta ti on-------- Normal [facility] Comment on above: Result Comment: Refe rence values for this fluid type areundefined, as fluid accumulation isconsidered abnormal. Performed By: #### B FCT ####[facility] ([id number])[address], [place] [address] FLUID CLARITY HAZY Normal [facility] Comment on above: Performed By: #### B FCT ####[facility] ([id number])[address], [address], [place] [address] FLUID COLOR COLORLESS Normal [facility] Comment on above: Performed By: #### B FCT ####[facility] ([id number])[address], [address] [place] [address] FLUID NEUTROPHILS 92 % Normal [facility] Comment on above: Performed By: #### B FCT ####[facility] ([id number])[address], [address] [place] [address] 1 /uL Normal [facility] Comment on above: Performed By: #### B FCT ####[facility] ([id number])[address], [address] [place] [address] FLUID SPECIMEN TYPE BRONCHOALVEOLAR LAVAGE Normal [facility] Comment on above: Result Comment: LUNG , LOWER LOBELEFTCorrected on 04/27 AT 1502: Previously reported as LUNG, LOWER LOBE LEFT Performed By: #### B FCT ####[facility] ([id number])[address], [address] [place] [address] 25351 MACROPHAGES 8 % Normal [facility] Comment on above: Performed By: #### B FCT ####[facility] ([id number])[address], [address] [place] [address] 77 /uL Normal [facility] Comment on above: Performed By: #### B FCT ####[facility] ([id number])[address], [address] [place] [address] 93925 FUNGAL CULTUREon 04-27-2024 Fungus identified Cx Nom (Unsp spec) FUNGAL SMEAR FEW YEAST ON CONCENTRATED SMEAR CULTURE RESULTS LIZZIE SPECIES IDENTIFIED : LIZZIE METAPSILOSIS Normal [facility] Comment on above: Performed By: #### 5 80-1 ####[facility] ([id number])[address] [address] [place] [address] 13055 Glucose Glucometer (BldC) [M ass/Vol]on 04-27-2024 Glucose [Mass/Vol] 119 mg/dL High 65-99 [facility] Glucose [Mass/Vol] 129 mg/dL High 65-99 [facility] LOWER RESPIRATORY CULTUREon 04-27-2024 Bacteria identified Respiratory culture Nom (Sput) Abnormal [facility] Comment on above: Performed By: #### 6 24-7 ####[facility] ([id number])[address], [address] [place] [address] 12303 POTASSIUMon 04-27-2024 Potassium [Moles/Vol] 4.0 mmol/L Normal 3.5-5.0 [facility] Comment on above: Performed By: #### 2 823-3 ####[facility] ([id number])[address] [place] [address] 36on 04-25-2024 36 Scheduled EGD/Cln/Acute on Chronic Anemia 05/15/24 @0830, PTH, Dr. Danielle, PAT ph: 05/08/24 @1100, Karla, #[id number], Telemed appt 03/15/24 w/ Reyghan. Madsen @ [facility] Spoke w/ Asmita: Instructions faxed to [phone]. Normal [facility] CBC AND AUTO DIFFon 04-18-19 25 ABSOLUTE BASOPHIL 0.1 X10E9/L Normal 0.0-0.2 [facility] Comment on above: Performed By: #### C BCA, BMP, PINR, 78913-4, #### [facility] ([id number]) [address] [place] [address] 73782 ABSOLUTE NEUTROPHIL 8.5 X10E9/L High 1.5-6.6 [facility] Comment on above: Performed By: #### C BCA, BMP, PINR, 18291-2, #### [facility] ([id number]) [address] [place] [address] 50033 Basophils/100 WBC (Bld) 0.6 % Normal [facility] Comment on above: Performed By: #### C BCA, BMP, PINR, 17666-3, #### [facility] ([id number]) [address] [place] [address] 24030 Eosinophils (Bld) [#/Vol] 0.3 10*3/uL Normal 0.0-0.4 [facility] Comment on above: Performed By: #### C BCA, BMP, PINR, 81315-2, #### [facility] ([id number]) [address] [place] [address] 51939 Eosinophils/100 WBC (Bld) 2.8 % Normal [facility] Comment on above: Performed By: #### C BCA, BMP, PINR, , 54698-5 #### [facility] ([id number]) [address] [place] [address] 23661 Erythrocyte distribution width (RBC) [Ratio] 18.2 % High 11.5-15.0 [facility] Comment on above: Performed By: #### C BCA, BMP, PINR, , #### [facility] ([id number]) [address] [place] [address] 93882 Hematocrit (Bld) [Volume fraction] 27.3 % Low 35-47 [facility] Comment on above: Performed By: #### C BCA, BMP, PINR, , #### [facility] ([id number]) [address] [place] [address] 15859 Hemoglobin (Bld) [Mass/Vol] 8.8 g/dL Low 11.7-15.5 [facility] Comment on above: Performed By: #### C BCA, BMP, PINR, , #### [facility] ([id number]) [address] [place] [address] 72903 Lymphocytes (Bld) [#/Vol] 0.9 10*3/uL Low 1.0-3.5 [facility] Comment on above: Performed By: #### C BCA, BMP, PINR, , #### [facility] ([id number]) [address] [place] [address] 92243 Lymphocytes/100 WBC (Bld) 8.3 % Normal [facility] Comment on above: Performed By: #### C BCA, BMP, PINR, 61315-2, #### [facility] ([id number]) [address] [place] [address] 23331 MCH (RBC) [Entitic mass] 29.5 pg Normal 27-34 [facility] Comment on above: Performed By: #### C BCA, BMP, PINR, , #### [facility] ([id number]) [address] [place] [address] 55031 MCHC (RBC) [Mass/Vol] 32.0 g/dL Normal 32-36 [facility] Comment on above: Performed By: #### C BCA, BMP, PINR, , #### [facility] ([id number]) [address] [place] [address] 64972 MCV (RBC) [Entitic vol] 92 fL Normal 80-100 [facility] Comment on above: Performed By: #### C BCA, BMP, PINR, , #### [facility] ([id number]) [address] [place] [address] 92025 Monocytes (Bld) [#/Vol] 0.9 10*3/uL Normal 0-0.9 [facility] Comment on above: Performed By: #### C BCA, BMP, PINR, , #### [facility] ([id number]) [address] [place] [address] 18525 Monocytes/100 WBC (Bld) 8.3 % Normal [facility] Comment on above: Performed By: #### C BCA, BMP, PINR, , #### [facility] ([id number]) [address] [place] [address] 90714 Neutrophils/100 WBC (Bld) 80.0 % Normal [facility] Comment on above: Performed By: #### C BCA, BMP, PINR, 77564-0, #### [facility] ([id number]) [address] [place] [address] 64811 Platelet mean volume (Bld) [Entitic vol] 9.9 fL Normal 7-12 [facility] Comment on above: Performed By: #### C BCA, BMP, PINR, , #### [facility] ([id number]) [address] [place] [address] 08168 Platelets (Bld) [#/Vol] 230 10*3/uL Normal 150-450 [facility] Comment on above: Performed By: #### C BCA, BMP, PINR, , #### [facility] ([id number]) [address] [place] [address] 03830 RBC COUNT 2.97 X10E12/L Low 3.80-5.20 [facility] Comment on above: Performed By: #### C BCA, BMP, PINR, , #### [facility] ([id number]) [address] [place] [address] 14711 WBC (Bld) [#/Vol] 10.6 10*3/uL Normal 4.0-11.0 [facility] Comment on above: Performed By: #### C BCA, BMP, PINR, , #### [facility] ([id number]) [address] [place] [address] 56128 COMPREHENSIVE METABOLIC PANE Anibal 04-18-2024 Albumin [Mass/Vol] 3.1 g/dL Low 3.2-5.3 [facility] Comment on above: Performed By: #### P INR, 49755-4, CMP, , 98651-5, 02135-5, CBCA ####[facility] ([id number])[address] [place] [address] 05849 ALP [Catalytic activity/Vol] 221 U/L High 39-130 [facility] Comment on above: Performed By: #### P INR, 48411-8, CMP, 45216-0, 71197-4, 64025-5, CBCA ####[facility] ([id number])[address] [place] [address] 29940 ALT [Catalytic activity/Vol] 25 U/L Normal 0-31 [facility] Comment on above: Performed By: #### P INR, 64285-8, CMP, 23215-1, 78300-7, 86631-1, CBCA ####[facility] ([id number])[address] [place] [address] 05422 Anion gap [Moles/Vol] 15 mmol/L Normal 5-15 [facility] Comment on above: Performed By: #### P INR, 36515-1, CMP, 21319-3, 09694-5, 94152-2, CBCA ####[facility] ([id number])[address] [place] [address] 12578 AST [Catalytic activity/Vol] 34 U/L Normal 0-41 [facility] Comment on above: Performed By: #### P INR, 57165-9, CMP, 96911-5, 54288-1, 64662-5, CBCA ####[facility] ([id number])[address] [place] [address] 88510 Bilirubin [Mass/Vol] 1.1 mg/dL Normal 0.3-1.2 [facility] Comment on above: Performed By: #### P INR, 66404-0, CMP, 70413-9, 71133-6, 50746-5, CBCA ####[facility] ([id number])[address] [place] [address] 08966 Calcium [Mass/Vol] 8.3 mg/dL Low 8.5-10.5 [facility] Comment on above: Performed By: #### P INR, 09094-1, CMP, 64764-9, 94599-1, 26193-5, CBCA ####[facility] ([id number])[address] [place] [address] 10546 Chloride [Moles/Vol] 91 mmol/L Low 98-109 [facility] Comment on above: Performed By: #### P INR, 39322-6, CMP, 94264-1, 95597-6, 04662-0, CBCA ####[facility] ([id number])[address] [place] [address] 48275 CO2 [Moles/Vol] 24 mmol/L Normal 22-32 [facility] Comment on above: Performed By: #### P INR, 66787-6, CMP, 16481-4, 18365-3, 14927-5, CBCA ####[facility] ([id number])[address] [place] [address] 28984 Creatinine [Mass/Vol] 5.28 mg/dL High 0.40-1.00 [facility] Comment on above: Result Comment: METH OD TRACEABLE TO IDMS STANDARD Performed By: #### P INR, 87491-4, CMP, 92935-6, 64057-1, 09903-7, CBCA ####[facility] ([id number])[address] [place] [address] 51302 GFR/1.73 sq M.predicted among non-blacks MDRD (S/P/Bld) [Vol rate/Area] 9 mL/min/{1.73_m2} Low >59 [facility] Comment on above: Result Comment: Reported eGFR is based on the CKD-EPI 2020 equation that does not use a race coefficient. Performed By: #### P INR, 14381-2, CMP, 87215-3, 11364-8, 21095-7, CBCA ####[facility] ([id number])[address] [place] [address] 37203 Glucose [Mass/Vol] 141 mg/dL High 65-99 [facility] Comment on above: Performed By: #### P INR, 10564-3, CMP, 41381-8, 45125-7, 92728-7, CBCA ####[facility] ([id number])[address] [place] [address] 67672 Potassium [Moles/Vol] 4.6 mmol/L Normal 3.5-5.0 [facility] Comment on above: Performed By: #### P INR, 93701-5, CMP, 01997-5, 50831-5, 36646-8, CBCA ####[facility] ([id number])[address] [place] [address] 03500 Protein [Mass/Vol] 6.8 g/dL Normal 6.0-8.0 [facility] Comment on above: Performed By: #### P INR, 59652-2, CMP, 40993-1, 07337-9, 61686-6, CBCA ####[facility] ([id number])[address] [place] [address] 37585 Sodium [Moles/Vol] 130 mmol/L Low 134-146 [facility] Comment on above: Performed By: #### P INR, 63778-9, CMP, 75725-0, 29383-1, 14145-6, CBCA ####[facility] ([id number])[address] [place] [address] 40873 Urea nitrogen [Mass/Vol] 50 mg/dL High 5-23 [facility] Comment on above: Performed By: #### P INR, 08166-5, CMP, 50182-1, 85435-0, 78010-0, CBCA ####[facility] ([id number])[address] [place] [address] 90044 Lactate (P catherine) [Moles/Vol]o n 04-18-2024 LACTATE W/REFLEX 1.9 mmol/L Normal 0.4-2.0 [facility] Comment on above: Result Comment: Result did not trigger repeat Lactate, re-order if needed. Performed By: #### 3 2133-1 ####[facility] ([id number])[address] [place] [address] 97542 MAGNESIUMon 04-18-2024 Magnesium [Mass/Vol] 1.7 mg/dL Low 1.8-2.6 [facility] Comment on above: Performed By: #### P INR, 90988-0, CMP, 40783-8, 82172-4, 18064-6, CBCA ####[facility] ([id number])[address] [place] [address] 11017 Natriuretic peptide B [Mass/ Vol]on 04-18-2024 Natriuretic peptide B (Bld) [Mass/Vol] 69 pg/mL Normal <100.0 [facility] Comment on above: Performed By: #### C BCA, BMP, PINR, 02635-2, 23202-8 #### [facility] ([id number]) [address] [place] [address] 41914 PROTIME AND INRon 04-18-2024 INR Coag (PPP) [Relative time] 1.8 {INR} High 0.8-1.1 [facility] Comment on above: Performed By: #### P INR, 05447-8, CMP, 13711-7, 91846-9, 63096-8, CBCA ####[facility] ([id number])[address] [place] [address] 59202 PT Coag (PPP) [Time] 20.9 s High 9.8-13.2 [facility] Comment on above: Result Comment: NEW REFERENCE RANGE Performed By: #### P INR, 86410-0, CMP, 83001-7, 94172-4, 78301-9, CBCA ####[facility] ([id number])[address] [place] [address] 07838 Troponin I.cardiac High sens itivity method [Mass/Vol]on 04-18-2024 1 HOUR TROP I, HIGH SENSITIVITY 13 ng/L Normal <16 [facility] Comment on above: Performed By: #### C BCA, BMP, PINR, 79936-8, 32672-3 #### [facility] ([id number]) [address] [place] [address] 08249 TROPONIN I, HIGH SENSITIVITY 14 ng/L Normal <16 [facility] Comment on above: Performed By: #### C BCA, BMP, PINR, 58737-8, 03827-2 #### [facility] ([id number]) [address] [place] [address] 24701 XR CHEST 1 VWon 04-18-2024 XR CHEST 1 VW XR CHEST 1 VW XR CHEST 1 VW 04/18/2024 7:23 PM INDICATION: hypotension, ventilated COMPARISON: None. TECHNIQUE: AP upright radiographic view(s) obtained. FINDINGS: Patient is rotated to the left compromising evaluation of left hemithorax. Lines/Tubes/Devices: * Tracheostomy tube tip projects over the intrathoracic trachea. * Right-sided double-lumen dialysis catheter tip projects over the right atrium. Respiratory: No large pneumothorax. Left basilar opacification. Cardiomediastinum: Mildly enlarged, unchanged. IMPRESSION: * Patient is rotated to the left, compromising evaluation of the left hemithorax. Within these limitations, increasing left basilar opacification possibly pleural effusion or consolidation. * Support devices as described. Approved by Resident: Robert Magana MD on 04/18/2024 7:42 PM I, Bronson Carballo MD have personally reviewed the image(s) and agree with and/or edited the report Finalized by Bronson Carballo MD on 04/18/2024 7:53 PM Normal [facility] aPTT Coag (PPP) [Time]on aPTT Coag (Bld) [Time] 35 s Normal 26-37 [facility] Comment on above: Result Comment: NEW REFERENCE RANGE Performed By: #### P INR, 32635-9, CMP, 09243-0, 21528-4, 39405-9, CBCA ####[facility] ([id number])[address] [place] [address] Telemedicineon 03-15-2024 Telemedicine [id number] Matthew Neal 1965 F Date Provider Department Center 03/15/2024 Parmjit7-ALEKSANDAR DELVALLE [facility] GI [facility] Family History Family history unknown: Yes Level of Service:34831 AR OFFICE/OUTPATIENT ESTABLISHED LOW MDM 20 MIN Reason for Visit and Comments: Follow-up [590819] - Hospital Follow Up: Patient states she has a hernia that the hospital will not touch. She has been having stomach issues and also had a wound that will not heal and needs to see Infectious Disease [facility] 36on 03-07-2024 36 Medication list was faxed to our office, scanned into patients chart. [facility] Follow-Upon 03-07-2024 Follow-Up [id number] Matthew Neal 1965 F Date Provider Department Center 03/07/2024 454-PA IDANIA [facility] Family History Family history unknown: Yes Level of Service:13613 AR OFFICE/OUTPATIENT ESTABLISHED SF MDM 10 MIN Reason for Visit and Comments: Follow-up [306282] - Anabel is here today for follow up: Infected prosthetic mesh of abdominal wall, s/p umbilical hernia repair with mesh- 1 mth f/u [facility] 36on 03-06-2024 36 Shank Faker called and spoke with Niko one of the administrators at the facility. She took the appointment for March 15 at 1:30 and will let Alla who takes care of telehealth appointments and will set up her my chart that keno writer / runner sent to [email or web address] . They will also send a current med list to keno writer / runner so the patients chart will be updated and I will call ahead to get the patient started on the Telemed appointment with Alla. [facility] 36 Hi Mary Beth and Amanda n, I reached out to Dr Danielle and he asks that one of you do a Telemed with this patient and then get her scheduled for a Colonoscopy/EGD. Wanted to give you a heads up and which of you is able to do this the soonest? Any help would be appreciated. [address] 02-29-2024 36 Shank Faker is reaching o ny to Gastroenterology to see if the MD's do telemed and will call and let them know when I get an answer. Shank Faker reached out to Fellow Trip Weiss. [place] [address] spring called back for an update. Informed them a message had been sent back to see if patient could be scheduled as a telemed visit, and that we are awaiting a response. [address] 02-28-2024 [facility] called to see if the patient's appointment on 03/14/[address] Danielle could be switched to a telemedicine visit. Facility confirmed the email in the patient's chart to be used for telemedicine visits. Facility verified phone number for a return call with an update. [facility] Telephoneon 02-28-2024 Telephone [phone] Matthew Neal 1965 F Date Provider Department Center 02/28/2024 209-MARY JO DANIELLE [facility] GI [facility] Family History Family history unknown: Yes [facility] IR REPLACE TUNLD CICV CATH W O PORT/[place] 02-22-2024 IR REPLACE TUNLD CICV CATH WO PORT/P [facility] Follow-Upon 02-07-2024 Follow-Up [id number] Matthew Neal 1965 F Date Provider Department Center 02/07/2024 Tracey-IDANIA GUNDERSON [facility] SURG [place] Family History Family history unknown: Yes Level of Service:06746 AR OFFICE/OUTPATIENT ESTABLISHED LOW MDM 20 MIN Reason for Visit and Comments: Follow-up [258849] - Infected prosthetic mesh of abdominal wall, s/p umbilical hernia repair with mesh- 1 mth f/u Normal [facility] CBC AND AUTO DIFFon 10-25-20 24 ABSOLUTE BASOPHIL 0.0 X10E9/L Normal 0.0-0.2 [facility] Comment on above: Performed By: #### C WALLACE, CMP ####[facility] ([id number])[address], [address], [place] [address] ABSOLUTE NEUTROPHIL 4.2 X10E9/L Normal 1.5-6.6 [facility] Comment on above: Performed By: #### C WALLACE, CMP ####[facility] ([id number])[address], [address], [place] [address] Basophils/100 WBC (Bld) 0.7 % Normal [facility] Comment on above: Performed By: #### C WALLACE, CMP ####[facility] ([id number])[address], [address], [place] [address] Eosinophils (Bld) [#/Vol] 0.5 10*3/uL High 0.0-0.4 [facility] Comment on above: Performed By: #### C WALLACE, CMP ####[facility] ([id number])2130 [address], [place] [address] Eosinophils/100 WBC (Bld) 9.1 % Normal [facility] Comment on above: Performed By: #### C WALLACE, CMP ####[facility] ([id number])[address] [address], [place] [address] Erythrocyte distribution width (RBC) [Ratio] 18.8 % High 11.5-15.0 [facility] Comment on above: Performed By: #### C BCA, CMP ####[facility] ([id number])[address], [place] [address] Hematocrit (Bld) [Volume fraction] 30.2 % Low 35-47 [facility] Comment on above: Performed By: #### C BCA, CMP ####[facility] ([id number])[address] [place] [address] Hemoglobin (Bld) [Mass/Vol] 9.7 g/dL Low 11.7-15.5 [facility] Comment on above: Performed By: #### C BCA, CMP ####[facility] ([id number])[address] [address], [place] [address] Lymphocytes (Bld) [#/Vol] 0.8 10*3/uL Low 1.0-3.5 [facility] Comment on above: Performed By: #### C BCA, CMP ####[facility] ([id number])[address] [address], [place] [address] Lymphocytes/100 WBC (Bld) 13.7 % Normal [facility] Comment on above: Performed By: #### C BCA, CMP ####[facility] ([id number])[address] [address], [place] [address] MCH (RBC) [Entitic mass] 31.4 pg Normal 27-34 [facility] Comment on above: Performed By: #### C BCA, CMP ####[facility] ([id number])[address] [address], [place] [address] MCHC (RBC) [Mass/Vol] 32.2 g/dL Normal 32-36 [facility] Comment on above: Performed By: #### C BCA, CMP ####[facility] ([id number])[address] [address] [place] [address] MCV (RBC) [Entitic vol] 98 fL Normal 80-100 [facility] Comment on above: Performed By: #### C BCA, CMP ####[facility] ([id number])[address] [address] [place] [address] Monocytes (Bld) [#/Vol] 0.4 10*3/uL Normal 0-0.9 [facility] Comment on above: Performed By: #### C WALLACE, CMP ####[facility] ([id number])[address], [place] [address] Monocytes/100 WBC (Bld) 6.0 % Normal [facility] Comment on above: Performed By: #### C WALLACE, CMP ####[facility] ([id number])[address] [place] [address] Neutrophils/100 WBC (Bld) 70.5 % Normal [facility] Comment on above: Performed By: #### C WALLACE, CMP ####[facility] ([id number])[address] [place] [address] Platelet mean volume (Bld) [Entitic vol] 8.3 fL Normal 7-12 [facility] Comment on above: Performed By: #### C WALLACE, CMP ####[facility] ([id number])[address], [place] [address] Platelets (Bld) [#/Vol] 139 10*3/uL Low 150-450 [facility] Comment on above: Performed By: #### C WALLACE, CMP ####[facility] ([id number])[address], [place] [address] RBC COUNT 3.09 X10E12/L Low 3.80-5.20 [facility] Comment on above: Performed By: #### C WALLACE, CMP ####[facility] ([id number])[address], [place] [address] WBC (Bld) [#/Vol] 5.9 10*3/uL Normal 4.0-11.0 [facility] Comment on above: Performed By: #### C WALLACE, CMP ####[facility] ([id number])[address], [address], [place] [address] COMPREHENSIVE METABOLIC PANE Anibal 02-03-2024 Albumin [Mass/Vol] 3.8 g/dL Normal 3.2-5.3 [facility] Comment on above: Performed By: #### C BCA, CMP ####[facility] ([id number])[address], [address], [place] [address] ALP [Catalytic activity/Vol] 113 U/L Normal 39-130 [facility] Comment on above: Performed By: #### C BCA, CMP ####[facility] ([id number])[address], [address], [place] [address] ALT [Catalytic activity/Vol] 7 U/L Normal 0-31 [facility] Comment on above: Performed By: #### C BCA, CMP ####[facility] ([id number])[address], [place] [address] Anion gap [Moles/Vol] 13 mmol/L Normal 5-15 [facility] Comment on above: Performed By: #### C BCA, CMP ####[facility] ([id number])[address], [address], [place] [address] AST [Catalytic activity/Vol] 8 U/L Normal 0-41 [facility] Comment on above: Performed By: #### C BCA, CMP ####[facility] ([id number])[address], [address], [place] [address] Bilirubin [Mass/Vol] 0.5 mg/dL Normal 0.3-1.2 [facility] Comment on above: Performed By: #### C BCA, CMP ####[facility] ([id number])[address], [address], [place] [address] Calcium [Mass/Vol] 9.1 mg/dL Normal 8.5-10.5 [facility] Comment on above: Performed By: #### C BCA, CMP ####[facility] ([id number])[address], [place] [address] Chloride [Moles/Vol] 99 mmol/L Normal 98-109 [facility] Comment on above: Performed By: #### C BCA, CMP ####[facility] ([id number])[address], [place] [address] CO2 [Moles/Vol] 24 mmol/L Normal 22-32 [facility] Comment on above: Performed By: #### C BCA, CMP ####[facility] ([id number])[address], [address], [place] [address] Creatinine [Mass/Vol] 4.58 mg/dL High 0.40-1.00 [facility] Comment on above: Result Comment: METH OD TRACEABLE TO IDMS STANDARD Performed By: #### C BCA, CMP ####[facility] ([id number])[address], [place] [address] GFR/1.73 sq M.predicted among non-blacks MDRD (S/P/Bld) [Vol rate/Area] 11 mL/min/{1.73_m2} Low >59 [facility] Comment on above: Result Comment: Repo rted eGFR is based on theCKD-EPI 2020 equation that doesnot use a race coefficient. Performed By: #### C BCA, CMP ####[facility] ([id number])[address], [address], [place] [address] Glucose [Mass/Vol] 143 mg/dL High 65-99 [facility] Comment on above: Performed By: #### C BCA, CMP ####[facility] ([id number])[address], [address], [place] [address] Potassium [Moles/Vol] 4.2 mmol/L Normal 3.5-5.0 [facility] Comment on above: Performed By: #### C BCA, CMP ####[facility] ([id number])[address], [address], [place] [address] Protein [Mass/Vol] 6.6 g/dL Normal 6.0-8.0 [facility] Comment on above: Performed By: #### C BCA, CMP ####[facility] ([id number])[address], [address], [place] [address] Sodium [Moles/Vol] 136 mmol/L Normal 134-146 [facility] Comment on above: Performed By: #### C BCA, CMP ####[facility] ([id number])[address], [address], [place] [address] Urea nitrogen [Mass/Vol] 21 mg/dL Normal 5-23 [facility] Comment on above: Performed By: #### C BCA, CMP ####[facility] ([id number])[address], [address], [place] [address] Glucose Glucometer (BldC) [M ass/Vol]on 02-03-2024 Glucose [Mass/Vol] 202 mg/dL High 65-99 [facility] Glucose [Mass/Vol] 159 mg/dL High 65-99 [facility] Glucose [Mass/Vol] 148 mg/dL High 65-99 [facility] CBC AND AUTO DIFFon 02-01- 24 ABSOLUTE BASOPHIL 0.0 X10E9/L Normal 0.0-0.2 [facility] Comment on above: Performed By: #### C WALLACE CMP, 48175-8, 8 ####[facility] ([id number])[address], [place] [address] ABSOLUTE NEUTROPHIL 4.6 X10E9/L Normal 1.5-6.6 [facility] Comment on above: Performed By: #### C WALLACE CMP, , 2730-11 ####[facility] ([id number])[address] [place] [address] Basophils/100 WBC (Bld) 0.7 % Normal [facility] Comment on above: Performed By: #### C WALLACE, CMP, , 2730-11 ####[facility] ([id number])[address] [place] [address] Eosinophils (Bld) [#/Vol] 0.5 10*3/uL High 0.0-0.4 [facility] Comment on above: Performed By: #### C WALLACE, [facility], , 2730-11 ####[facility] ([id number])[address], [place] [address] Eosinophils/100 WBC (Bld) 8.4 % Normal [facility] Comment on above: Performed By: #### Darlene GONSALEZ, CMP, , 2730-11 ####[facility] ([id number])[address] [address] [place] [address] Erythrocyte distribution width (RBC) [Ratio] 19.3 % High 11.5-15.0 [facility] Comment on above: Performed By: #### C WALLACE CMP, , 2730-11 ####[facility] ([id number])[address] [address] [place] [address] Hematocrit (Bld) [Volume fraction] 28.2 % Low 35-47 [facility] Comment on above: Performed By: #### C WALLACE, CMP, , 2730-11 ####[facility] ([id number])[address] [address] [place] [address] Hemoglobin (Bld) [Mass/Vol] 9.1 g/dL Low 11.7-15.5 [facility] Comment on above: Performed By: #### C WALLACE CMP, , 2730-11 ####[facility] ([id number])[address] [address] [place] [address] Lymphocytes (Bld) [#/Vol] 0.8 10*3/uL Low 1.0-3.5 [facility] Comment on above: Performed By: #### C WALLACE, [facility], , 2730-11 ####[facility] ([id number])[address] [address], [place] [address] Lymphocytes/100 WBC (Bld) 12.1 % Normal [facility] Comment on above: Performed By: #### C WALLACE, [facility], , 2730-11 ####[facility] ([id number])[address] [address] MCH (RBC) [Entitic mass] 31.3 pg Normal 27-34 [facility] Comment on above: Performed By: #### C WALLACE, [facility], , 2730-11 ####[facility] ([id number])[address] [address] [place] [address] MCHC (RBC) [Mass/Vol] 32.1 g/dL Normal 32-36 [facility] Comment on above: Performed By: #### C WALLACE, CMP, , 2730-11 ####[facility] ([id number])[address] [address] [place] [address] MCV (RBC) [Entitic vol] 98 fL Normal 80-100 [facility] Comment on above: Performed By: #### C BCA, CMP, , 2730-11 ####[facility] ([id number])[address] [address] [place] [address] Monocytes (Bld) [#/Vol] 0.3 10*3/uL Normal 0-0.9 [facility] Comment on above: Performed By: #### C BCA, CMP, , 2730-11 ####[facility] ([id number])[address] [place] [address] Monocytes/100 WBC (Bld) 5.3 % Normal [facility] Comment on above: Performed By: #### C BCA, CMP, , 2730-11 ####[facility] ([id number])[address] [place] [address] Neutrophils/100 WBC (Bld) 73.5 % Normal [facility] Comment on above: Performed By: #### C BCA, CMP, , 2730-11 ####[facility] ([id number])[address] [place] [address] Platelet mean volume (Bld) [Entitic vol] 8.3 fL Normal 7-12 [facility] Comment on above: Performed By: #### Darlene BCA, CMP, , 2730-11 ####[facility] ([id number])[address] [place] [address] Platelets (Bld) [#/Vol] 151 10*3/uL Normal 150-450 [facility] Comment on above: Performed By: #### Darlene BCA, CMP, , 2730-11 ####[facility] ([id number])[address] [place] [address] RBC COUNT 2.89 X10E12/L Low 3.80-5.20 [facility] Comment on above: Performed By: #### C BCA, CMP, , 2730-11 ####[facility] ([id number])[address] [place] [address] WBC (Bld) [#/Vol] 6.3 10*3/uL Normal 4.0-11.0 [facility] Comment on above: Performed By: #### C BCA, CMP, , 2730-11 ####[facility] ([id number])[address], [place] [address] COMPREHENSIVE METABOLIC PANE Anibal 02-02-2024 Albumin [Mass/Vol] 4.0 g/dL Normal 3.2-5.3 [facility] Comment on above: Performed By: #### C BCA, CMP, , 2730-11 ####[facility] ([id number])[address], [place] [address] ALP [Catalytic activity/Vol] 107 U/L Normal 39-130 [facility] Comment on above: Performed By: #### C BCA, CMP, , 2730-11 ####[facility] ([id number])[address], [place] [address] ALT [Catalytic activity/Vol] 7 U/L Normal 0-31 [facility] Comment on above: Performed By: #### C BCA, CMP, , 8 ####[facility] ([id number])[address], [place] [address] Anion gap [Moles/Vol] 14 mmol/L Normal 5-15 [facility] Comment on above: Performed By: #### C BCA, CMP, , 2730-11 ####[facility] ([id number])[address], [place] [address] AST [Catalytic activity/Vol] 9 U/L Normal 0-41 [facility] Comment on above: Performed By: #### C BCA, CMP, , 2730-11 ####[facility] ([id number])[address], [address], [place] [address] Bilirubin [Mass/Vol] 0.5 mg/dL Normal 0.3-1.2 [facility] Comment on above: Performed By: #### C BCA, CMP, , 2730-11 ####[facility] ([id number])[address], [place] [address] Calcium [Mass/Vol] 9.1 mg/dL Normal 8.5-10.5 [facility] Comment on above: Performed By: #### C BCA, CMP, , 2730-11 ####[facility] ([id number])[address], [place] [address] Chloride [Moles/Vol] 101 mmol/L Normal 98-109 [facility] Comment on above: Performed By: #### C BCA, CMP, , 2730-11 ####[facility] ([id number])[address], [place] [address] CO2 [Moles/Vol] 24 mmol/L Normal 22-32 [facility] Comment on above: Performed By: #### C BCA, CMP, , 2730-11 ####[facility] ([id number])[address] [address], [place] [address] Creatinine [Mass/Vol] 3.33 mg/dL High 0.40-1.00 [facility] Comment on above: Result Comment: METH OD TRACEABLE TO IDMS STANDARD Performed By: #### C BCA, CMP, , 2730-11 ####[facility] ([id number])[address] [address], [place] [address] GFR/1.73 sq M.predicted among non-blacks MDRD (S/P/Bld) [Vol rate/Area] 16 mL/min/{1.73_m2} Low >59 [facility] Comment on above: Result Comment: Repo rted eGFR is based on theCKD-EPI 2020 equation that doesnot use a race coefficient. Performed By: #### C BCA, CMP, , 2730-11 ####[facility] ([id number])[address], [place] [address] Glucose [Mass/Vol] 171 mg/dL High 65-99 [facility] Comment on above: Performed By: #### C BCA, CMP, , 2730-11 ####[facility] ([id number])[address], [place] [address] Potassium [Moles/Vol] 4.4 mmol/L Normal 3.5-5.0 [facility] Comment on above: Performed By: #### C BCA, CMP, , 2730-11 ####[facility] ([id number])[address], [address], [place] [address] Protein [Mass/Vol] 6.7 g/dL Normal 6.0-8.0 [facility] Comment on above: Performed By: #### C BCA, CMP, , 2730-11 ####[facility] ([id number])[address] [address], [place] [address] Sodium [Moles/Vol] 139 mmol/L Normal 134-146 [facility] Comment on above: Performed By: #### C BCA, CMP, , 2730-11 ####[facility] ([id number])[address] [address], [place] [address] Urea nitrogen [Mass/Vol] 16 mg/dL Normal 5-23 [facility] Comment on above: Performed By: #### C BCA, CMP, , 2730-11 ####[facility] ([id number])[address], [place] [address] FL SWALLOW MOTILITY FUNCTION on 02-02-2024 FL SWALLOW MOTILITY FUNCTION Normal [facility] Glucose Glucometer (BldC) [M ass/Vol]on 02-02-2024 Glucose [Mass/Vol] 170 mg/dL High 65-99 [facility] Glucose [Mass/Vol] 153 mg/dL High 65-99 [facility] Glucose [Mass/Vol] 153 mg/dL High 65-99 [facility] MAGNESIUMon 02-02-2024 Magnesium [Mass/Vol] 1.9 mg/dL Normal 1.8-2.6 [facility] Comment on above: Performed By: #### C WALLACE, CMP, 733[address]-1, 2730-8 ####[facility] ([id number])[address], [address] [place] [address] Parathyrin.intact [Mass/Vol] on 02-02-2024 PTH INTACT 193 pg/mL High 12-88 [facility] Comment on above: Performed By: #### C WALLACE CMP, , 2730-8 ####[facility] ([id number])[address], [address] [place] [address] Troponin I.cardiac High sens itivity method [Mass/Vol]on 02-02-2024 3 HOUR TROP I, HIGH SENSITIVITY 11 ng/L Normal <16 [facility] Comment on above: Performed By: #### 8 9579-7 ####[facility] ([id number])[address], [address] [place] [address] XR ABDOMEN COMP DECUB ERECTo n 02-02-2024 XR ABDOMEN COMP DECUB ERECT Normal [facility] XR CHEST 1 VWon 02-02-2024 XR CHEST 1 VW Normal [facility] CBC AND AUTO DIFFon 02-01-20 24 ABSOLUTE BASOPHIL 0.0 X10E9/L Normal 0.0-0.2 [facility] Comment on above: Performed By: #### C WALLACE, CMP, 3-6 ####[facility] ([id number])[address], [place] [address] ABSOLUTE NEUTROPHIL 4.4 X10E9/L Normal 1.5-6.6 [facility] Comment on above: Performed By: #### C POLI GONSALEZ, 2142-09 ####[facility] ([id number])[address], [place] [address] Basophils/100 WBC (Bld) 0.7 % Normal [facility] Comment on above: Performed By: #### Darlene GONSALEZ CMP, 2142-09 ####[facility] ([id number])[address], [place] [address] Eosinophils (Bld) [#/Vol] 0.6 10*3/uL High 0.0-0.4 [facility] Comment on above: Performed By: #### Darlene GONSALEZ CMP, 2142-09 ####[facility] ([id number])[address], [place] [address] Eosinophils/100 WBC (Bld) 9.4 % Normal [facility] Comment on above: Performed By: #### Darlene GONSALEZ CMP, 2142-09 ####[facility] ([id number])[address] [address], [place] [address] Erythrocyte distribution width (RBC) [Ratio] 19.3 % High 11.5-15.0 [facility] Comment on above: Performed By: #### Darlene GONSALEZ CMP, 2142-09 ####[facility] ([id number])[address] [address], [place] [address] Hematocrit (Bld) [Volume fraction] 28.9 % Low 35-47 [facility] Comment on above: Performed By: #### Darlene GONSALEZ CMP, 2142-09 ####[facility] ([id number])[address], [place] [address] Hemoglobin (Bld) [Mass/Vol] 9.5 g/dL Low 11.7-15.5 [facility] Comment on above: Performed By: #### [facility], 2142-09 ####[facility] ([id number])[address] [address], [place] [address] Lymphocytes (Bld) [#/Vol] 0.6 10*3/uL Low 1.0-3.5 [facility] Comment on above: Performed By: #### Darlene GONSALEZ CMP, 2142-09 ####[facility] ([id number])[address] [address], [place] [address] Lymphocytes/100 WBC (Bld) 10.4 % Normal [facility] Comment on above: Performed By: #### Darlene GONSALEZ CMP, 2142-09 ####[facility] ([id number])[address] [address], [place] [address] MCH (RBC) [Entitic mass] 31.8 pg Normal 27-34 [facility] Comment on above: Performed By: #### Darlene GONSALEZ CMP, 2142-09 ####[facility] ([id number])[address] [address], [place] [address] MCHC (RBC) [Mass/Vol] 32.8 g/dL Normal 32-36 [facility] Comment on above: Performed By: #### Darlene GONSALEZ CMP, 2142-09 ####[facility] ([id number])[address] [address] [place] [address] MCV (RBC) [Entitic vol] 97 fL Normal 80-100 [facility] Comment on above: Performed By: #### Darlene GONSALEZ CMP, 2142-09 ####[facility] ([id number])[address] [address], [place] [address] Monocytes (Bld) [#/Vol] 0.4 10*3/uL Normal 0-0.9 [facility] Comment on above: Performed By: #### Darlene GONSALEZ CMP, 2142-09 ####[facility] ([id number])[address], [place] [address] Monocytes/100 WBC (Bld) 6.0 % Normal [facility] Comment on above: Performed By: #### C BCA, CMP, 2142-09 ####[facility] ([id number])[address], [place] [address] Neutrophils/100 WBC (Bld) 73.5 % Normal [facility] Comment on above: Performed By: #### C BCA, CMP, 2142-09 ####[facility] ([id number])[address], [place] [address] Platelet mean volume (Bld) [Entitic vol] 8.3 fL Normal 7-12 [facility] Comment on above: Performed By: #### C BCA, CMP, 2142-09 ####[facility] ([id number])[address], [address], [place] [address] Platelets (Bld) [#/Vol] 156 10*3/uL Normal 150-450 [facility] Comment on above: Performed By: #### C BCA, CMP, 2142-09 ####[facility] ([id number])[address], [address], [place] [address] RBC COUNT 2.97 X10E12/L Low 3.80-5.20 [facility] Comment on above: Performed By: #### C BCA, CMP, 2142-09 ####[facility] ([id number])[address], [address], [place] [address] WBC (Bld) [#/Vol] 6.0 10*3/uL Normal 4.0-11.0 [facility] Comment on above: Performed By: #### C BCA, CMP, 2142-09 ####[facility] ([id number])[address], [address], [place] [address] COMPREHENSIVE METABOLIC PANE Anibal 02-01-2024 Albumin [Mass/Vol] 4.0 g/dL Normal 3.2-5.3 [facility] Comment on above: Performed By: #### C BCA, CMP, 2142-09 ####[facility] ([id number])[address], [address], [place] [address] ALP [Catalytic activity/Vol] 118 U/L Normal 39-130 [facility] Comment on above: Performed By: #### C BCA, CMP, 2142-09 ####[facility] ([id number])[address], [address], [place] [address] ALT [Catalytic activity/Vol] 9 U/L Normal 0-31 [facility] Comment on above: Performed By: #### C BCA, CMP, 2142-09 ####[facility] ([id number])[address], [address], [place] [address] Anion gap [Moles/Vol] 16 mmol/L High 5-15 [facility] Comment on above: Performed By: #### C BCA, CMP, 2142-09 ####[facility] ([id number])[address], [address], [place] [address] AST [Catalytic activity/Vol] 10 U/L Normal 0-41 [facility] Comment on above: Performed By: #### C BCA, CMP, 2142-09 ####[facility] ([id number])[address], [address], [place] [address] Bilirubin [Mass/Vol] 0.5 mg/dL Normal 0.3-1.2 [facility] Comment on above: Performed By: #### C BCA, CMP, 2142-09 ####[facility] ([id number])[address], [address], [place] [address] Calcium [Mass/Vol] 8.6 mg/dL Normal 8.5-10.5 [facility] Comment on above: Performed By: #### C POLI GONSALEZ, 2142-09 ####[facility] ([id number])[address], [address], [place] [address] Chloride [Moles/Vol] 101 mmol/L Normal 98-109 [facility] Comment on above: Performed By: #### C POLI GONSALEZ, 2142-09 ####[facility] ([id number])[address], [address], [place] [address] CO2 [Moles/Vol] 20 mmol/L Low 22-32 [facility] Comment on above: Performed By: #### C POLI GONSALEZ, 2142-09 ####[facility] ([id number])[address], [place] [address] Creatinine [Mass/Vol] 4.80 mg/dL High 0.40-1.00 [facility] Comment on above: Result Comment: METH OD TRACEABLE TO IDMS STANDARD Performed By: #### C POLI GONSALEZ, 2142-09 ####[facility] ([id number])[address] [address], [place] [address] GFR/1.73 sq M.predicted among non-blacks MDRD (S/P/Bld) [Vol rate/Area] 10 mL/min/{1.73_m2} Low >59 [facility] Comment on above: Result Comment: Repo rted eGFR is based on theCKD-EPI 2020 equation that doesnot use a race coefficient. Performed By: #### C POLI GONSALEZ, 2142-09 ####[facility] ([id number])[address], [address], [place] [address] Glucose [Mass/Vol] 201 mg/dL High 65-99 [facility] Comment on above: Performed By: #### C POLI GONSALEZ, 2142-09 ####[facility] ([id number])[address], [address], [place] [address] Potassium [Moles/Vol] 4.6 mmol/L Normal 3.5-5.0 [facility] Comment on above: Performed By: #### Darlene GONSALEZ CMP, 2142-09 ####[facility] ([id number])[address], [place] [address] Protein [Mass/Vol] 6.7 g/dL Normal 6.0-8.0 [facility] Comment on above: Performed By: #### Darlene GONSALEZ CMP, 2142-09 ####[facility] ([id number])[address], [place] [address] Sodium [Moles/Vol] 137 mmol/L Normal 134-146 [facility] Comment on above: Performed By: #### Dralene GONSALEZ CMP, 2142-09 ####[facility] ([id number])[address], [place] [address] Urea nitrogen [Mass/Vol] 31 mg/dL High - [facility] Comment on above: Performed By: #### Darlene GONSALEZ CMP, 2142-09 ####[facility] ([id number])[address], [address], [place] [address] Cortisol [Mass/Vol]on 2023 CORTISOL 4.7 ug/dL Normal [facility] Comment on above: Result Comment: Due to the diurnal variation of cortisollevels in normal subjects, all cortisolmeasurements should be referenced to thetime of day of sample collection.AM Cortisol Age>=6 6.7-22.4 ug/dLPM Cortisol Age>=6 <10 ug/dL Performed By: #### Darlene BCA, CMP, 2142-09 ####[facility] ([id number])[address], [place] [address] Glucose Glucometer (BldC) [M ass/Vol]on 02-01-2024 Glucose [Mass/Vol] 175 mg/dL High 65-99 [facility] Glucose [Mass/Vol] 136 mg/dL High 65-99 [facility] Glucose [Mass/Vol] 182 mg/dL High 65-99 [facility] Glucose [Mass/Vol] 169 mg/dL High 65-99 [facility] CBC AND AUTO DIFFon 01-31-20 ABSOLUTE BASOPHIL 0.1 X10E9/L Normal 0.0-0.2 [facility] Comment on above: Performed By: #### C WALLACE [facility], , ####[facility] ([id number])[address], [address] [place] [address] ABSOLUTE NEUTROPHIL 5.9 X10E9/L Normal 1.5-6.6 [facility] Comment on above: Performed By: #### Darlene GONSALEZ [facility], , ####[facility] ([id number])[address], [address] [place] [address] Basophils/100 WBC (Bld) 0.7 % Normal [facility] Comment on above: Performed By: #### Darlene GONSALEZ [facility], , ####[facility] ([id number])[address], [address] [place] [address] Eosinophils (Bld) [#/Vol] 0.5 10*3/uL High 0.0-0.4 [facility] Comment on above: Performed By: #### Darlene GONSALEZ [facility], , ####[facility] ([id number])[address], [address], [place] [address] Eosinophils/100 WBC (Bld) 6.3 % Normal [facility] Comment on above: Performed By: #### C WALLACE [facility], ####[facility] ([id number])[address] [address], [place] [address] Erythrocyte distribution width (RBC) [Ratio] 19.1 % High 11.5-15.0 [facility] Comment on above: Performed By: #### Darlene GONSALEZ [facility], , ####[facility] ([id number])[address] [address], [place] [address] Hematocrit (Bld) [Volume fraction] 29.0 % Low 35-47 [facility] Comment on above: Performed By: #### Darlene GONSALEZ [facility], , ####[facility] ([id number])[address] [address], [place] [address] Hemoglobin (Bld) [Mass/Vol] 9.4 g/dL Low 11.7-15.5 [facility] Comment on above: Performed By: #### Darlene GONSALEZ [facility], ####[facility] ([id number])[address] [address], [place] [address] Lymphocytes (Bld) [#/Vol] 0.6 10*3/uL Low 1.0-3.5 [facility] Comment on above: Performed By: #### Darlene GONSALEZ [facility], ####[facility] ([id number])[address] [address], [place] [address] Lymphocytes/100 WBC (Bld) 8.0 % Normal [facility] Comment on above: Performed By: #### Darlene GONSALEZ [facility], ####[facility] ([id number])[address], [address], [place] [address] MCH (RBC) [Entitic mass] 31.9 pg Normal 27-34 [facility] Comment on above: Performed By: #### C WALLACE CMP, ####[facility] ([id number])[address], [address] [place] [address] MCHC (RBC) [Mass/Vol] 32.4 g/dL Normal 32-36 [facility] Comment on above: Performed By: #### C WALLACE CMP, , ####[facility] ([id number])[address], [address] [place] [address] MCV (RBC) [Entitic vol] 98 fL Normal 80-100 [facility] Comment on above: Performed By: #### C WALLACE CMP, , ####[facility] ([id number])[address] [address], [place] [address] Monocytes (Bld) [#/Vol] 0.4 10*3/uL Normal 0-0.9 [facility] Comment on above: Performed By: #### C WALLACE CMP, ####[facility] ([id number])[address] [address], [place] [address] Monocytes/100 WBC (Bld) 5.7 % Normal [facility] Comment on above: Performed By: #### C WALLACE CMP, ####[facility] ([id number])[address] [address] [place] [address] Neutrophils/100 WBC (Bld) 79.3 % Normal [facility] Comment on above: Performed By: #### C WALLACE, CMP, ####[facility] ([id number])[address] [place] [address] Platelet mean volume (Bld) [Entitic vol] 8.6 fL Normal 7-12 [facility] Comment on above: Performed By: #### C BCA, CMP, , ####[facility] ([id number])[address], [address], [place] [address] Platelets (Bld) [#/Vol] 170 10*3/uL Normal 150-450 [facility] Comment on above: Performed By: #### C BCA, CMP, , ####[facility] ([id number])[address], [address], [place] [address] RBC COUNT 2.95 X10E12/L Low 3.80-5.20 [facility] Comment on above: Performed By: #### C BCA, CMP, , ####[facility] ([id number])[address], [address] [place] [address] WBC (Bld) [#/Vol] 7.4 10*3/uL Normal 4.0-11.0 [facility] Comment on above: Performed By: #### C BCA, CMP, , ####[facility] ([id number])[address], [address] [place] [address] COMPREHENSIVE METABOLIC PANE Anibal 01-31-2024 Albumin [Mass/Vol] 3.7 g/dL Normal 3.2-5.3 [facility] Comment on above: Performed By: #### C BCA, CMP, , ####[facility] ([id number])[address], [address] [place] [address] ALP [Catalytic activity/Vol] 114 U/L Normal 39-130 [facility] Comment on above: Performed By: #### C BCA, CMP, , ####[facility] ([id number])[address], [address], [place] [address] ALT [Catalytic activity/Vol] 10 U/L Normal 0-31 [facility] Comment on above: Performed By: #### C BCA, CMP, , ####[facility] ([id number])[address], [address], [place] [address] Anion gap [Moles/Vol] 16 mmol/L High 5-15 [facility] Comment on above: Performed By: #### C BCA, CMP, , ####[facility] ([id number])[address], [address], [place] [address] AST [Catalytic activity/Vol] 12 U/L Normal 0-41 [facility] Comment on above: Performed By: #### C BCA, CMP, , ####[facility] ([id number])[address], [address], [place] [address] Bilirubin [Mass/Vol] 0.4 mg/dL Normal 0.3-1.2 [facility] Comment on above: Performed By: #### C BCA, CMP, , ####[facility] ([id number])[address], [address], [place] [address] Calcium [Mass/Vol] 8.1 mg/dL Low 8.5-10.5 [facility] Comment on above: Performed By: #### C BCA, CMP, , ####[facility] ([id number])[address], [address], [place] [address] Chloride [Moles/Vol] 99 mmol/L Normal 98-109 [facility] Comment on above: Performed By: #### C BCA, CMP, , ####[facility] ([id number])[address] [address], [place] [address] CO2 [Moles/Vol] 22 mmol/L Normal 22-32 [facility] Comment on above: Performed By: #### C POLI GONSALEZ, ####[facility] ([id number])[address] [address], [place] [address] Creatinine [Mass/Vol] 6.61 mg/dL High 0.40-1.00 [facility] Comment on above: Result Comment: METH OD TRACEABLE TO IDMS STANDARD Performed By: #### C POLI GONSALEZ, ####[facility] ([id number])[address] [address], [place] [address] GFR/1.73 sq M.predicted among non-blacks MDRD (S/P/Bld) [Vol rate/Area] 7 mL/min/{1.73_m2} Low >59 [facility] Comment on above: Result Comment: Repo rted eGFR is based on theCKD-EPI 2020 equation that doesnot use a race coefficient. Performed By: #### C POLI GONSALEZ, ####[facility] ([id number])[address] [address], [place] [address] Glucose [Mass/Vol] 172 mg/dL High 65-99 [facility] Comment on above: Performed By: #### C POLI GONSALEZ, ####[facility] ([id number])[address] [address], [place] [address] Potassium [Moles/Vol] 4.8 mmol/L Normal 3.5-5.0 [facility] Comment on above: Performed By: #### C POLI GONSALEZ, ####[facility] ([id number])[address] [address], [place] [address] Protein [Mass/Vol] 6.4 g/dL Normal 6.0-8.0 [facility] Comment on above: Performed By: #### C POLI GONSALEZ, , ####[facility] ([id number])[address], [place] [address] Sodium [Moles/Vol] 137 mmol/L Normal 134-146 [facility] Comment on above: Performed By: #### C POLI GONSALEZ, , ####[facility] ([id number])[address], [place] [address] Urea nitrogen [Mass/Vol] 56 mg/dL High - [facility] Comment on above: Performed By: #### C POLI GONSALEZ, , ####[facility] ([id number])[address], [address] [place] [address] Glucose Glucometer (BldC) [M ass/Vol]on 01-31-2024 Glucose [Mass/Vol] 211 mg/dL High 65-99 [facility] Glucose [Mass/Vol] 129 mg/dL High 65-99 [facility] Glucose [Mass/Vol] 200 mg/dL High 65-99 [facility] Glucose [Mass/Vol] 171 mg/dL High 65-99 [facility] IR REPLACE TUNLD CICV CATH W O PORT/Colby 01-31-2024 IR REPLACE TUNLD CICV CATH WO PORT/P Normal [facility] MAGNESIUMon 01-31-2024 Magnesium [Mass/Vol] 2.1 mg/dL Normal 1.8-2.6 [facility] Comment on above: Performed By: #### C POLI GONSALEZ, , ####[facility] ([id number])[address], [place] [address] Vancomycin [Mass/Vol]on 10-2 2-2024 VANCOMYCIN 12.7 ug/mL Normal 5.0-40.0 [facility] Comment on above: Result Comment: Peak 30-40 ug/mLTrough 5-20 ug/ml Performed By: #### C BCA, [facility], [address]-6, [address]-2 ####[facility] ([id number])[address] [address] BLOOD CULTUREon 01-30-2024 Bacteria identified Aer cx Nom (Bld) SPECIMEN NOTES ONLY AEROBIC BOTTLE RECEIVED, SUBOPTIMAL VOLUME OF BLOOD COLLECTED, RESULTS MAY BE AFFECTED SUBOPTIMAL VOLUME OF BLOOD COLLECTED, RESULTS MAY BE AFFECTED. CULTURE RESULTS NO GROWTH 5 DAYS Normal [facility] Comment on above: Performed By: #### 1 7928-3 ####[facility] ([id number])[address] [address] Bacteria identified Aer cx Nom (Bld) SPECIMEN NOTES ONLY AEROBIC BOTTLE RECEIVED, SUBOPTIMAL VOLUME OF BLOOD COLLECTED, RESULTS MAY BE AFFECTED SUBOPTIMAL VOLUME OF BLOOD COLLECTED, RESULTS MAY BE AFFECTED. CULTURE RESULTS NO GROWTH 5 DAYS Normal [facility] Comment on above: Performed By: #### 1 7928-3 ####[facility] ([id number])[address] [address] CBC AND AUTO DIFFon 01-30-20 ABSOLUTE BASOPHIL 0.0 X10E9/L Normal 0.0-0.2 [facility] Comment on above: Performed By: #### C BCA ####[facility] ([id number])[address] [address] ABSOLUTE NEUTROPHIL 5.3 X10E9/L Normal 1.5-6.6 [facility] Comment on above: Performed By: #### C BCA ####[facility] ([id number])[address] [place] [address] Basophils/100 WBC (Bld) 0.6 % Normal [facility] Comment on above: Performed By: #### C BCA ####[facility] ([id number])[address] [place] [address] Eosinophils (Bld) [#/Vol] 0.6 10*3/uL High 0.0-0.4 [facility] Comment on above: Performed By: #### C BCA ####[facility] ([id number])[address], [place] [address] Eosinophils/100 WBC (Bld) 8.0 % Normal [facility] Comment on above: Performed By: #### C BCA ####[facility] ([id number])[address], [place] [address] Erythrocyte distribution width (RBC) [Ratio] 18.8 % High 11.5-15.0 [facility] Comment on above: Performed By: #### C BCA ####[facility] ([id number])[address], [place] [address] Hematocrit (Bld) [Volume fraction] 29.0 % Low 35-47 [facility] Comment on above: Performed By: #### C BCA ####[facility] ([id number])[address] [address], [place] [address] Hemoglobin (Bld) [Mass/Vol] 9.7 g/dL Low 11.7-15.5 [facility] Comment on above: Performed By: #### C BCA ####[facility] ([id number])[address] [address] [place] [address] Lymphocytes (Bld) [#/Vol] 0.9 10*3/uL Low 1.0-3.5 [facility] Comment on above: Performed By: #### C BCA ####[facility] ([id number])[address] [place] [address] Lymphocytes/100 WBC (Bld) 12.9 % Normal [facility] Comment on above: Performed By: #### C BCA ####[facility] ([id number])[address] [place] [address] MCH (RBC) [Entitic mass] 32.4 pg Normal 27-34 [facility] Comment on above: Performed By: #### C BCA ####[facility] ([id number])[address] [place] [address] MCHC (RBC) [Mass/Vol] 33.5 g/dL Normal 32-36 [facility] Comment on above: Performed By: #### C BCA ####[facility] ([id number])[address] [place] [address] MCV (RBC) [Entitic vol] 97 fL Normal 80-100 [facility] Comment on above: Performed By: #### C BCA ####[facility] ([id number])[address], [place] [address] Monocytes (Bld) [#/Vol] 0.5 10*3/uL Normal 0-0.9 [facility] Comment on above: Performed By: #### C BCA ####[facility] ([id number])[address] [place] [address] Monocytes/100 WBC (Bld) 6.6 % Normal [facility] Comment on above: Performed By: #### C BCA ####[facility] ([id number])[address], [place] [address] Neutrophils/100 WBC (Bld) 71.9 % Normal [facility] Comment on above: Performed By: #### C BCA ####[facility] ([id number])[address], [place] [address] Platelet mean volume (Bld) [Entitic vol] 8.6 fL Normal 7-12 [facility] Comment on above: Performed By: #### C BCA ####[facility] ([id number])[address] [address], [place] [address] Platelets (Bld) [#/Vol] 177 10*3/uL Normal 150-450 [facility] Comment on above: Performed By: #### C BCA ####[facility] ([id number])[address] [address], [place] [address] RBC COUNT 3.00 X10E12/L Low 3.80-5.20 [facility] Comment on above: Performed By: #### C BCA ####[facility] ([id number])[address] [address] WBC (Bld) [#/Vol] 7.3 10*3/uL Normal 4.0-11.0 [facility] Comment on above: Performed By: #### C BCA ####[facility] ([id number])[address] [address], [place] [address] COMPREHENSIVE METABOLIC PANE Anibal 01-30-2024 Albumin [Mass/Vol] 3.7 g/dL Normal 3.2-5.3 [facility] Comment on above: Performed By: #### 4 6127-7, CMP, FEPR, 2532-0, 02265-9, 53252- 0, 2777-1, 2276-4, 2284-8, 2131-9, HA1C ####[facility] ([id number])[address] [address], [place] [address] ALP [Catalytic activity/Vol] 116 U/L Normal 39-130 [facility] Comment on above: Performed By: #### 4 6127-7, CMP, FEPR, 2532-0, 42450-7, 15934- 0, 2777-1, 2276-4, 2284-8, 2132-9, HA1C ####[facility] ([id number])[address] [place] [address] ALT [Catalytic activity/Vol] 11 U/L Normal 0-31 [facility] Comment on above: Performed By: #### 4 6127-7, CMP, FEPR, 2532-0, 11526-6, 65772- 0, 2777-1, 2276-4, 2284-8, 2-9, HA1C ####[facility] ([id number])[address], [place] [address] Anion gap [Moles/Vol] 16 mmol/L High 5-15 [facility] Comment on above: Performed By: #### 4 6127-7, CMP, FEPR, 2532-0, 99416-7, 80646- 0, 2777-1, 2276-4, 2284-8, 2131-9, HA1C ####[facility] ([id number])[address], [address], [place] [address] AST [Catalytic activity/Vol] 11 U/L Normal 0-41 [facility] Comment on above: Performed By: #### 4 6127-7, CMP, FEPR, 2532-0, 64008-0, 05673- 0, 2777-1, 2276-4, 2284-8, 2131-9, HA1C ####[facility] ([id number])[address], [address] [place] [address] Bilirubin [Mass/Vol] 0.4 mg/dL Normal 0.3-1.2 [facility] Comment on above: Performed By: #### 4 6127-7, CMP, FEPR, 2532-0, 84950-6, 23265- 0, 2777-1, 2276-4, 2284-8, 2132-9, HA1C ####[facility] ([id number])[address], [address], [place] [address] Calcium [Mass/Vol] 8.0 mg/dL Low 8.5-10.5 [facility] Comment on above: Performed By: #### 4 6127-7, CMP, FEPR, 2532-0, 29593-8, 70703- 0, 2777-1, 2276-4, 2284-8, 2131-12, HA1C ####[facility] ([id number])[address], [address], [place] [address] Chloride [Moles/Vol] 100 mmol/L Normal 98-109 [facility] Comment on above: Performed By: #### 4 6127-7, CMP, FEPR, 2532-0, 41935-6, 24508- 0, 2777-1, 2276-4, 2283-8, 2131-12, HA1C ####[facility] ([id number])[address], [address], [place] [address] CO2 [Moles/Vol] 22 mmol/L Normal 22-32 [facility] Comment on above: Performed By: #### 4 6127-7, CMP, FEPR, 2532-0, 53529-4, 42729- 0, 2777-1, 2276-4, 2283-8, 2131-12, HA1C ####[facility] ([id number])[address], [address], [place] [address] Creatinine [Mass/Vol] 6.15 mg/dL High 0.40-1.00 [facility] Comment on above: Result Comment: METH OD TRACEABLE TO IDMS STANDARD Performed By: #### 4 6127-7, CMP, FEPR, 2532-0, 18899-5, 77785-3, 2777-1, 2276-4, 2284-8, 2131-12, HA1C ####[facility] ([id number])[address], [address], [place] [address] GFR/1.73 sq M.predicted among non-blacks MDRD (S/P/Bld) [Vol rate/Area] 7 mL/min/{1.73_m2} Low >59 [facility] Comment on above: Result Comment: Repo rted eGFR is based on theCKD-EPI 2020 equation that doesnot use a race coefficient. Performed By: #### 4 6127-7, CMP, FEPR, 2532-0, 98591-0, 93379-4, 2777-1, 2276-4, 2284-8, 2131-9, HA1C ####[facility] ([id number])[address] [facility], [address] [place] [address] Glucose [Mass/Vol] 162 mg/dL High 65-99 [facility] Comment on above: Performed By: #### 4 6127-7, CMP, FEPR, 2532-0, 75598-9, 88556- 0, 2777-1, 2276-4, 2284-8, 2131-9, HA1C ####[facility] ([id number])[address] [facility], [address] [place] [address] Potassium [Moles/Vol] 4.8 mmol/L Normal 3.5-5.0 [facility] Comment on above: Performed By: #### 4 6127-7, CMP, FEPR, 2532-0, 32211-7, 30891- 0, 2777-1, 2276-4, 2284-8, 2131-9, HA1C ####[facility] ([id number])[address], [address] [address] Protein [Mass/Vol] 6.5 g/dL Normal 6.0-8.0 [facility] Comment on above: Performed By: #### 4 6127-7, CMP, FEPR, 2532-0, 78921-8, 98014- 0, 2777-1, 2276-4, 2284-8, 2132-9, HA1C ####[facility] ([id number])[address] [place] [address], [address] [address] Sodium [Moles/Vol] 138 mmol/L Normal 134-146 [facility] Comment on above: Performed By: #### 4 6127-7, CMP, FEPR, 2532-0, 91091-5, 51981- 0, 2777-1, 2276-4, 2284-8, 2132-9, HA1C ####[facility] ([id number])[address] [place] [address], [address] [place] [address] Urea nitrogen [Mass/Vol] 59 mg/dL High 5-23 [facility] Comment on above: Performed By: #### 4 6127-7, CMP, FEPR, 2532-0, 73496-4, 39789- 0, 2777-1, 2276-4, 2284-8, 2132-9, HA1C ####[facility] ([id number])[address] [place] [address], [address] [place] [address] Clinical Pathology Blood Sme ar Reviewon 01-30-2024 Clinical Pathology Blood Smear Review Normal [facility] Comment on above: Result Comment: [facility] [address] [place] [address] Clinical Pathology ReportPatient Name:DEANDRE NEALB:1965 (Age: 58)Gender:FTaken:4Reported:4Physician(s):KEILA ABARCA ([id number])Copy To: Rec. #:[id number]: #[id number] Pathologic DiagnosisPERIPHERAL BLOOD:- Normochromic, normocytic anemia- No significant abnormalities of leukocytes- No significant abnormalities of plateletsCOMMENT:If other causes are excluded, features are most consistent with anemia of chronic disease / systemic illness. The previously noted thrombocytopenia is not seen in the current smear. Clinical correlation is recommended.MICROSCOPIC:The red cells are decreased in number and are normochromic and normocytic with mild anisopoikilocytosis and increased polychromasia.Leukocytes are normal in number, consisting predominantly of segmented neutrophils with fewer numbers of lymphocytes and monocytes. Platelets are normal in number and morphology. Report Electronically Signed Out4Rkatharine Todd MDInterpretation performed at [facility], [address] [place] [address], License number: [id number].Clinical OevfouuN09.9, J8.9. [facility] (01/30/2024626): WBC = 7.3 X10E9/L; HGB = 9.7 g/dL; HCT = 29.0%; MCV = 97 fL; PLT = 177 X10E9/LSpecimen(s) Received Blood Smear ReviewFee Codes(s):1; 11773 FERRITINon 01-30-2024 Ferritin [Mass/Vol] 1097 ng/mL High 11-307 [facility] Comment on above: Performed By: #### 4 6127-7, CMP, FEPR, 2532-0, 17180-3, 03523- 0, 2777-1, 2276-4, 2284-8, 2131-12, HA1C ####[facility] ([id number])[address], [address] [address] Folate [Mass/Vol]on 01-30-20 24 FOLIC ACID >25.0 Normal >5.8 [facility] Comment on above: Result Comment: NEW REFERENCE RANGE Performed By: #### 4 6127-7, CMP, FEPR, 2532-0, 08727-7, 46077-7, 2777-1, 2276-4, 2284-8, 9, HA1C ####[facility] ([id number])[address] [facility], [address], [place] [address] Glucose Glucometer (BldC) [M ass/Vol]on 01-30-2024 Glucose [Mass/Vol] 164 mg/dL High 65-99 [facility] Glucose [Mass/Vol] 135 mg/dL High 65-99 [facility] Glucose [Mass/Vol] 137 mg/dL High 65-99 [facility] HGB A1C (GLYCO-HGB)on 2023 Glucose [Mass/Vol] 123 mg/dL Normal [facility] Comment on above: Performed By: #### 4 6127-7, CMP, FEPR, 2532-0, 08923-9, 24495- 0, 2777-1, 2276-4, 2284-8, 9, HA1C ####[facility] ([id number])[address] [facility], [address], [place] [address] HbA1c (Bld) [Mass fraction] 5.9 % High 4.4-5.6 [facility] Comment on above: Result Comment: NOTE ADA Guidelines Result HgbA1c Normal : less than 5.7 % Prediabetes : 5.7 % to 6.4 % Diabetes : > 6.4 %Use with caution in patients with abnormal hemoglobin variants asthe half-life of red blood cells and in vivo glycation rates areaffected. Performed By: #### 4 6127-7, CMP, FEPR, 2532-0, 18351-3, 06928-3, 2777-1, 2276-4, 4-8, 9, HA1C ####[facility] ([id number])[address], [address], [place] [address] Haptoglobin Nephelometry [Ma ss/Vol]on 01-30-2024 HAPTOGLOBIN 209 mg/dL Normal 32-228 [facility] Comment on above: Performed By: #### 4 6127-7, CMP, FEPR, 2532-0, 24208-6, 26196- 0, 2777-1, 2276-4, 2284-8, 2131-12, HA1C ####[facility] ([id number])[address], [address] [place] [address] IRON PROFILEon 01-30-2024 Iron [Mass/Vol] 40 ug/dL Low 50-170 [facility] Comment on above: Performed By: #### 4 6127-7, CMP, FEPR, 2532-0, 56863-9, 05498- 0, 2777-1, 2276-4, 2284-8, 9, HA1C ####[facility] ([id number])[address], [address], [place] [address] IRON BINDING 216 ug/dL Low 250-425 [facility] Comment on above: Performed By: #### 4 6127-7, CMP, FEPR, 2532-0, 75704-6, 89147- 0, 2777-1, 2276-4, 4-8, 2131-12, HA1C ####[facility] ([id number])[address], [address], [place] [address] IRON SATURATION 19 % SATURATION Normal 15-50 [facility] Comment on above: Performed By: #### 4 6127-7, CMP, FEPR, 2532-0, 24438-9, 35748- 0, 2777-1, 2276-4, 2284-8, 2131-12, HA1C ####[facility] ([id number])[address], [address] [place] [address] LDH [Catalytic activity/Vol] on 01-30-2024 LDH 129 U/L Normal 100-235 [facility] Comment on above: Performed By: #### 4 6127-7, CMP, FEPR, 2532-0, 38729-7, 87842- 0, 2777-1, 2276-4, 2284-8, 9, HA1C ####[facility] ([id number])[address], [address] [place] [address] Lactate (P catherine) [Moles/Vol]o n 01-30-2024 LACTATE W/REFLEX 1.1 mmol/L Normal 0.4-2.0 [facility] Comment on above: Result Comment: Resu lt did not trigger repeat Lactate,re-order if needed. Performed By: #### 3 2133-1 ####[facility] ([id number])[address], [address] [place] [address] LACTATE W/REFLEX 0.9 mmol/L Normal 0.4-2.0 [facility] Comment on above: Result Comment: Resu lt did not trigger repeat Lactate,re-order if needed. Performed By: #### 3 2133-1 ####[facility] ([id number])[address], [address] [place] [address] LACTATE W/REFLEX 1.2 mmol/L Normal 0.4-2.0 [facility] Comment on above: Result Comment: Resu lt did not trigger repeat Lactate,re-order if needed. Performed By: #### 3 213-1 ####[facility] ([id number])[address], [address] [place] [address] Lactate [Moles/Vol] 2.7 mmol/L High 0.4-2.0 [facility] Comment on above: Performed By: #### 2 157-6 #### [facility] ([id number]) [address] [place] [address], [place] [address] #### 01882-0 #### [facility] ([id number]) [address], [address] [place] [address] MAGNESIUMon 01-30-2024 Magnesium [Mass/Vol] 1.4 mg/dL Low 1.8-2.6 [facility] Comment on above: Performed By: #### 4 6127-7, CMP, FEPR, 2532-0, 84002-9, 06659- 0, 2777-1, 2276-4, 2284-8, 2-9, HA1C ####[facility] ([id number])[address] [facility], [address] [place] [address] MRSA PCR NASALon 01-30-2024 MRSA DNA YASHIRA+probe Ql (Unsp spec) Negative Normal NEG [facility] Comment on above: Performed By: #### 3 5492-8 ####[facility] ([id number])[address] [place] [address], [address] [place] [address] Natriuretic peptide B [Mass/ Vol]on 01-30-2024 Natriuretic peptide B (Bld) [Mass/Vol] 148 pg/mL High <100.0 [facility] Comment on above: Performed By: #### 2 157-6 #### [facility] ([id number]) [address] [place] [address], [place] [address] #### 75520-6 #### [facility] ([id number]) [address] [place] [address], [address] [address] PHOSPHORUSon 01-30-2024 Phosphate [Mass/Vol] 6.8 mg/dL High 2.4-4.9 [facility] Comment on above: Performed By: #### 4 6127-7, CMP, FEPR, 2532-0, 30727-1, 27113- 0, 2777-1, 2276-4, 2284-8, 2131-9, HA1C ####[facility] ([id number])[address] [place] [address], [address] [place] [address] [address] comment (Bld) [Interp]on 01-30-2024 STAFF REVIEW NOTE Normal [facility] Comment on above: Result Comment: [facility] [address] [place] [address] Clinical Pathology ReportPatient Name:MATTHEW NEALROSE:1965 (Age:58)Gender:FTaken:01/30/2024eported:01/31/2024hysician(s): SHYANN ([id number])Copy To: Rec.#:[id number]: #[id number] Pathologic DiagnosisPERIPHERAL BLOOD:- Normochromic, normocytic anemia- No significant abnormalities of leukocytes- No significant abnormalities of plateletsCOMMENT:If other causes are excluded, features are most consistent withanemia of chronic disease / systemic illness. The previously notedthrombocytopenia is not seen in the current smear. Clinicalcorrelation is recommended.MICROSCOPIC:The red cells are decreased in number and are normochromic andnormocytic with mild anisopoikilocytosis and increased polychromasia.Leukocytes are normal in number, consisting predominantly ofsegmented neutrophils with fewer numbers of lymphocytes andmonocytes. Platelets are normal in number and morphology. Report Electronically Signed Out01/31/2024katharine Todd MDInterpretation performed at [facility], [address] [place] [address], License number: [id number].Clinical FuzcqxqW31.9, J8.9. BLOOD SMEAR EVALUATIONCBC (01/30/2024626): WBC = 7.3 X10E9/L; HGB = 9.7 g/dL; HCT =29.0%; MCV = 97 fL; PLT = 177 X10E9/LSpecimen(s) ReceivedBlood Smear ReviewFee Codes(s):1; [address] Performed By: #### 4 6127-7, CMP, FEPR, 2532-0, 21114-8, 51885-8, 2777-1, 2276-4, 2284-8, 2-9, HA1C ####[facility] ([id number])[address] [place] [address], [address] [place] [address] Procalcitonin IA [Mass/Vol]o n 01-30-2024 PROCALCITONIN 0.61 ng/mL High <0.05 [facility] Comment on above: Result Comment: NOTE <0.50 ng/mL - Low risk of severe sepsis and/or septic shock.<2.00 ng/mL - Recommend retesting within 6-24 hours.>2.00 ng/mL - High risk of sepsis and/or septic shock. Performed By: #### 4 6127-7, CMP, FEPR, 2532-0, 91232-2, 34741-3, 2777-1, 2276-4, 2284-8, 2132-9, HA1C ####[facility] ([id number])[address], [address] [place] [address] RESP PATHOGENS/DTGT-GiM-2aq 01-30-2024 Respiratory pathogens DNA and RNA panel YASHIRA+non-probe (Nph) Normal [facility] Comment on above: Performed By: #### 8 2159-5 ####[facility] ([id number])[address] [address] [place] [address] VITAMIN B12on 01-30-2024 Cobalamin (Vitamin B12) [Mass/Vol] 261 pg/mL Normal 180-914 [facility] Comment on above: Performed By: #### 4 6127-7, CMP, FEPR, 2532-0, 48248-5, 91100- 0, 2777-1, 2276-4, 2284-8, 2131-9, HA1C ####[facility] ([id number])[address] [address] [place] [address] BLOOD CULTUREon 01-29-2024 Bacteria identified Aer cx Nom (Bld) CULTURE RESULTS DIPHTHEROIDS POSSIBLE COLLECTION CONTAMINATION. SINGLE POSITIVE CULTURE IS OF UNCERTAIN CLINICAL SIGNIFICANCE. SUGGEST CONTINUED MONITORING OF REMAINING BLOOD CULTURES. CONTACT MICROBIOLOGY IF FURTHER INFORMATION IS REQUIRED. Normal [facility] Comment on above: Performed By: #### 1 7928-3 ####[facility] ([id number])[address], [address] [place] [address] Bacteria identified Aer cx Nom (Bld) CULTURE RESULTS NO GROWTH 5 DAYS Normal [facility] CBC AND AUTO DIFFon 10-20-20 24 ABSOLUTE BASOPHIL 0.1 X10E9/L Normal 0.0-0.2 [facility] Comment on above: Performed By: #### 2 157-6 #### [facility] ([id number]) [address] [place] [address] #### 86664-6 #### [facility] ([id number]) [address], [address] [place] [address] ABSOLUTE NEUTROPHIL 6.0 X10E9/L Normal 1.5-6.6 [facility] Comment on above: Performed By: #### 2 157-6 #### [facility] ([id number]) [address] [place] [address] #### 20437-7 #### [facility] ([id number]) [address], [address] [place] [address] Basophils/100 WBC (Bld) 0.8 % Normal [facility] Comment on above: Performed By: #### 2 157-6 #### [facility] ([id number]) [address] [place] [address] #### 75233-5 #### [facility] ([id number]) [address], [address] [place] [address] Eosinophils (Bld) [#/Vol] 0.6 10*3/uL High 0.0-0.4 [facility] Comment on above: Performed By: #### 2 157-6 #### [facility] ([id number]) [address] [place] [address] #### 40910-4 #### [facility] ([id number]) [address], [address] [place] [address] Eosinophils/100 WBC (Bld) 7.7 % Normal [facility] Comment on above: Performed By: #### 2 157-6 #### [facility] ([id number]) [address] [place] [address] #### 39728-1 #### [facility] ([id number]) [address] [facility], [address] [place] [address] Erythrocyte distribution width (RBC) [Ratio] 19.1 % High 11.5-15.0 [facility] Comment on above: Performed By: #### 2 157-6 #### [facility] ([id number]) [address] [place] [address] #### 19481-4 #### [facility] ([id number]) [address] [facility], [address] [place] [address] Hematocrit (Bld) [Volume fraction] 30.4 % Low 35-47 [facility] Comment on above: Performed By: #### 2 157-6 #### [facility] ([id number]) [address] [place] [address] #### 85737-4 #### [facility] ([id number]) [address] [facility], [address] [place] [address] Hemoglobin (Bld) [Mass/Vol] 9.7 g/dL Low 11.7-15.5 [facility] Comment on above: Performed By: #### 2 157-6 #### [facility] ([id number]) [address] [place] [address] #### 90125-6 #### [facility] ([id number]) [address] [facility], [address] [place] [address] Lymphocytes (Bld) [#/Vol] 0.9 10*3/uL Low 1.0-3.5 [facility] Comment on above: Performed By: #### 2 157-6 #### [facility] ([id number]) [address] [place] [address] #### 20918-9 #### [facility] ([id number]) [address], [address] [place] [address] Lymphocytes/100 WBC (Bld) 11.4 % Normal [facility] Comment on above: Performed By: #### 2 157-6 #### [facility] ([id number]) [address] [place] [address] #### 86492-8 #### [facility] ([id number]) [address], [address] [place] [address] MCH (RBC) [Entitic mass] 31.4 pg Normal 27-34 [facility] Comment on above: Performed By: #### 2 157-6 #### [facility] ([id number]) [address] [place] [address] #### 15298-0 #### [facility] ([id number]) [address], [address] [place] [address] MCHC (RBC) [Mass/Vol] 31.9 g/dL Low 32-[address] [facility] Comment on above: Performed By: #### 2 157-6 #### [facility] ([id number]) [address] [place] [address] #### 09993-8 #### [facility] ([id number]) [address], [address] [place] [address] MCV (RBC) [Entitic vol] 98 fL Normal 80-100 [facility] Comment on above: Performed By: #### 2 157-6 #### [facility] ([id number]) [address] [place] [address] #### 23291-7 #### [facility] ([id number]) [address], [address] [place] [address] Monocytes (Bld) [#/Vol] 0.5 10*3/uL Normal 0-0.9 [facility] Comment on above: Performed By: #### 2 157-6 #### [facility] ([id number]) [address] [place] [address] #### 21388-7 #### [facility] ([id number]) [address], [address] [place] [address] Monocytes/100 WBC (Bld) 6.1 % Normal [facility] Comment on above: Performed By: #### 2 157-6 #### [facility] ([id number]) [address] [place] [address] #### 84182-1 #### [facility] ([id number]) [address], [address] [place] [address] Neutrophils/100 WBC (Bld) 74.0 % Normal [facility] Comment on above: Performed By: #### 2 157-6 #### [facility] ([id number]) [address] [place] [address] #### 69673-0 #### [facility] ([id number]) [address], [address] [place] [address] Platelet mean volume (Bld) [Entitic vol] 8.9 fL Normal 7-12 [facility] Comment on above: Performed By: #### 2 157-6 #### [facility] ([id number]) [address] [place] [address] #### [id number] #### [facility] ([id number]) [address], [address] [place] [address] Platelets (Bld) [#/Vol] 207 10*3/uL Normal 150-450 [facility] Comment on above: Performed By: #### 2 157-6 #### [facility] ([id number]) [address] [place] [address] 30986 #### [id number] #### [facility] ([id number]) [address], [address] [place] [address] RBC COUNT 3.09 X10E12/L Low 3.80-5.20 [facility] Comment on above: Performed By: #### 2 157-6 #### [facility] ([id number]) [address] [place] [address]107 #### [id number] #### [facility] ([id number]) [address] [place] [address], [address] [place] [address] WBC (Bld) [#/Vol] 8.0 10*3/uL Normal 4.0-11.0 [facility] Comment on above: Performed By: #### 2 157-6 #### [facility] ([id number]) [address] [place] [address] #### [id number] #### [facility] ([id number]) [address] [place] [address], [address] [place] [address] COMPREHENSIVE METABOLIC PANE Anibal 01-29-2024 Albumin [Mass/Vol] 3.6 g/dL Normal 3.2-5.3 [facility] Comment on above: Performed By: #### 2 157-6 #### [facility] ([id number]) [address] [place] [address] 33848 #### [id number] #### [facility] ([id number]) [address], [address] [place] [address] ALP [Catalytic activity/Vol] 144 U/L High 39-130 [facility] Comment on above: Performed By: #### 2 157-6 #### [facility] ([id number]) [address] [place] [address] #### [id number] #### [facility] ([id number]) [address], [address] [place] [address] ALT [Catalytic activity/Vol] 16 U/L Normal 0-31 [facility] Comment on above: Performed By: #### 2 157-6 #### [facility] ([id number]) [address] [place] [address] #### [id number] #### [facility] ([id number]) [address], [address] [place] [address] Anion gap [Moles/Vol] 17 mmol/L High 5-15 [facility] Comment on above: Performed By: #### 2 157-6 #### [facility] [facility] ([id number]) [address] [place] [address] #### [id number] #### [facility] ([id number]) [address], [address] [place] [address] AST [Catalytic activity/Vol] 18 U/L Normal 0-41 [facility] Comment on above: Performed By: #### 2 157-6 #### [facility] ([id number]) [address] [place] [address] 22587 #### [id number] #### [facility] ([id number]) [address], [address] [place] [address] Bilirubin [Mass/Vol] 0.5 mg/dL Normal 0.3-1.2 [facility] Comment on above: Performed By: #### 2 157-6 #### [facility] ([id number]) [address] [place] [address] #### 38555-5 #### [facility] ([id number]) [address], [address] [place] [address] Calcium [Mass/Vol] 8.0 mg/dL Low 8.5-10.5 [facility] Comment on above: Performed By: #### 2 157-6 #### [facility] ([id number]) [address] [place] [address] #### 25599-3 #### [facility] ([id number]) [address], [address] [place] [address] Chloride [Moles/Vol] 98 mmol/L Normal 98-109 [facility] Comment on above: Performed By: #### 2 157-6 #### [facility] ([id number]) [address] [place] [address] 01698 #### 43675-9 #### [facility] ([id number]) [address], [address] [place] [address] CO2 [Moles/Vol] 22 mmol/L Normal 22-32 [facility] Comment on above: Performed By: #### 2 157-6 #### [facility] ([id number]) [address] [place] [address] 12680 #### [id number] #### [facility] ([id number]) [address], [address] [place] [address] Creatinine [Mass/Vol] 6.03 mg/dL High 0.40-1.00 [facility] Comment on above: Result Comment: METH OD TRACEABLE TO IDMS STANDARD Performed By: #### 2 157-6 #### [facility] ([id number]) [address] [place] [address] #### 69996-9 #### [facility] ([id number]) [address], [address] [place] [address] GFR/1.73 sq M.predicted among non-blacks MDRD (S/P/Bld) [Vol rate/Area] 8 mL/min/{1.73_m2} Low >59 [facility] Comment on above: Result Comment: Reported eGFR is based on the CKD-EPI 2020 equation that does not use a race coefficient. Performed By: #### 2 157-6 #### [facility] ([id number]) [address] [place] [address] #### 51086-3 #### [facility] ([id number]) [address], [address] [place] [address] Glucose [Mass/Vol] 228 mg/dL High 65-99 [facility] Comment on above: Performed By: #### 2 157-6 #### [facility] ([id number]) [address] [place] [address] 32457 #### 78074-2 #### [facility] ([id number]) [address], [address] [place] [address] Potassium [Moles/Vol] 4.8 mmol/L Normal 3.5-5.0 [facility] Comment on above: Performed By: #### 2 157-6 #### [facility] ([id number]) [address] [place] [address] 42891 #### 25226-4 #### [facility] ([id number]) [address], [address] [place] [address] Protein [Mass/Vol] 7.2 g/dL Normal 6.0-8.0 [facility] Comment on above: Performed By: #### 2 157-6 #### [facility] ([id number]) [address] [place] [address] 78053 #### 28674-4 #### [facility] ([id number]) [address], [address] [place] [address] Sodium [Moles/Vol] 137 mmol/L Normal 134-146 [facility] Comment on above: Performed By: #### 2 157-6 #### [facility] ([id number]) [address] [place] [address] 02346 #### 71140-4 #### [facility] ([id number]) [address], [address] [place] [address] Urea nitrogen [Mass/Vol] 59 mg/dL High 5-23 [facility] Comment on above: Performed By: #### 2 157-6 #### [facility] ([id number]) [address] [place] [address] #### 46203-3 #### [facility] ([id number]) [address], [address] [place] [address] LOWER RESPIRATORY CULTUREon 01-29-2024 Bacteria identified Respiratory culture Nom (Sput) GRAM STAIN 10 to 24 WHITE BLOOD CELLS/LPF 0 to 1 SQUAMOUS EPITHELIAL CELLS/LPF 0 CILIATED EPITHELIAL CELLS/LPF FEW GRAM POSITIVE COCCI MODERATE GRAM POSITIVE RODS CULTURE RESULTS MANY ESCHERICHIA COLI MANY NON LACTOSE FERMENTING GRAM NEGATIVE RODS Sent to reference lab IDENTIFIED BY [facility] KERSTERSIA GYIORUM/SIMILIS SEE SEPARATE REPORT FOR SUSCEPTIBILITY TESTING [ S = SUSCEPTIBLE R = RESISTANT I = INTERMEDIATE S-DO = Susceptible-dose dependent NS = Non-suscceptible NO = No Interpretation ] Organism: ESCHERICHIA COLI Antibiotic Interpretation JASON Status AMPICILLIN R >=32 F AMP/SULBACTAM R >=32/16 F CEFAZOLIN R >=64 F CEFTRIAXONE R >=64 F CIPROFLOXACIN R >=4 F GENTAMICIN R >=16 F LEVOFLOXACIN R >=8 F PIPERACIL/TAZOBACTAM S 8 F TOBRAMYCIN R >=16 F ESBL Test A F ESBL Test Organism produces an extended spectrum beta lactamase (ESBL). It may be clinically resistant to therapy with penicillins, cephalosporins, or aztreonam. Contact laboratory if further information is required. F ERTAPENEM S <=0.12 F Susceptible [facility] Comment on above: Performed By: #### 2 157-6 #### [facility] ([id number]) [address] [facility], [place] [address] #### 95718-2 #### [facility] ([id number]) [address], [address] [place] [address] Lactate (P catherine) [Moles/Vol]o n 01-29-2024 LACTATE W/REFLEX 2.2 mmol/L High 0.4-2.0 [facility] Comment on above: Performed By: #### 2 157-6 #### [facility] ([id number]) [address] [facility], [place] [address] #### 78551-0 #### [facility] ([id number]) [address], [address] [place] [address] [facility] ORDERon 024 TEST NAME IDENT ORGANISM SENT FOR IDENTIFICATION AEROBIC Normal [facility] TEST NAME MMLSA ANTIMICROBIAL SUSCEPTIBILITY ANAEROBIC Normal [facility] TEST NAME ZMMLS Normal [facility] TEST RESULT SEE COMMENTS 02/08/2024 02:20 PM Abnormal [facility] Comment on above: Result Comment: NOTE Test Result Flag Unit RefValue -- Organism Refer for ID, Aerobic See Note A Bact SOURCE: SPUTUM, LOWER RESP CULTURE SPUTUM NON LACTOSE FERMENTING GRAM NEGATIVE RODS SEE ATTACHED ORGANISM REFER FOR ID, AEROBIC BACT FINAL KERSTERSIA GYIORUM/SIMILIS Organism KERSTERSIA GYIORUM/SIMILIS Antibiotic JASON (mcg/mL) Interpretation Pip/Beronica <=8/4 S Cefepime <=2 S Ceftazidime <=4 S Meropenem <=0.12 S Aztreonam 8 S Ciprofloxacin >2 R Levofloxacin 4 I Amikacin <=4 S Gentamicin <=1 S Tobramycin <=1 S TMP/SMX <=.5/9.5 S S=SUSCEPTIBLE I=INTERMEDIATE R=RESISTANT NS=NONSUSCEPTIBLE SDD=SUSCEPTIBLE DOSE DEPENDENT Test Performed by: [place] [address] Maturity Checker: Alfa Daley Ph.D.; ASPENIA# [id number] TEST RESULT SEE COMMENTS 02/08/2024 02:21 PM Normal [facility] Comment on above: Result Comment: NOTE Test Result Flag Unit RefValue -- Susceptibility, Aerobic, JASON FINAL 02/08/2024 6969 SOURCE: SPUTUM, LOWER RESPIRATORY CULTURE SPUTUM NON LACTOSE FERMENTING GRAM NEGATIVE RODS SEE ATTACHED SUSCEPTIBILITY, AEROBIC, JASON FINAL See susceptibility under organism identification. Test Performed by: [facility] [address] [address] Maturity Checker: Alfa Daley Ph.D.; CLIA# [id number] Test Result Flag Unit RefValue -- Susceptibility, Anaerobic, JASON TNP SOURCE: SPUTUM, LOWER RESPIRATORY CULTURE SPUTUM NON LACTOSE FERMENTING GRAM NEGATIVE RODS SEE ATTACHED SUSCEPTIBILITY, ANAEROBIC, JASON Cancel reason - 02/08/2024 14:17 Changed to more appropriate test due to organism identified. !CNCL! Test Performed by: [place] [address] Maturity Checker: Alfa Daley Ph.D.; CLIA# [id number] CONTAINS ADDITIONAL TEST RESULTS Result Comment: NOTE Test Result Flag Unit RefValue -- Susceptibility, Aerobic, JASON See Note SOURCE: OTHER, SPECIFY IN COMMENTS, LOWER RESPIRATORY CULTURE SPUTUM NON LACTOSE FERMENTING GRAM NEGATIVE RODS SEE ATTACHED SUSCEPTIBILITY, AEROBIC, JASON FINAL See susceptibility under organism identification. Test Performed by: [place] [address] Maturity Checker: Alfa Daley Ph.D.; CLIA# [id number] Troponin I.cardiac High sens itivity method [Mass/Vol]on 01-29-2024 1 HOUR TROP I, HIGH SENSITIVITY 7 ng/L Normal <16 [facility] Comment on above: Performed By: #### 2 157-6 #### [facility] ([id number]) [address] [facility], [place] [address] #### 37425-2 #### [facility] ([id number]) [address] [place] [address], [address] [place] [address] TROPONIN I, HIGH SENSITIVITY 7 ng/L Normal <16 [facility] Comment on above: Performed By: #### 2 157-6 #### [facility] ([id number]) [address] [facility], [place] [address] #### 45050-0 #### [facility] ([id number]) [address] [facility], [address] [place] [address] XR CHEST 1 VWon 01-29-2024 XR CHEST 1 VW XR CHEST 1 VW XR CHEST 1 VW: 01/29/2024 PROVIDED HISTORY: * 58 years old Female * sob, chronic respiratory failure COMPARISON: None. TECHNIQUE: Portable frontal chest radiograph obtained. FINDINGS: Tracheostomy, right IJ central venous catheter, similar to prior. Perihilar and bibasilar patchy pulmonary opacities. No significant pneumothorax. Enlarged cardiac and mediastinal contours, similar to prior. Mild pulmonary vascular congestion. IMPRESSION: 1. Stable support devices. 2. Constellation of findings as can be seen in the setting of pulmonary edema with bibasilar pleural effusions versus atelectatic changes. Superimposed infectious/inflammator y process considered in the appropriate clinical context. Finalized by Toy Lewis MD on 01/29/2024 8:36 PM Normal [facility] XR FEMUR LT 2+ VIEWSon 01-24 XR FEMUR LT 2+ VIEWS XR FEMUR LT 2+ VIEW S EXAM: XR FEMUR LT 2+ VIEWS CLINICAL INFORMATION: Closed displaced supracondylar fracture with intracondylar extension of lower end of left femur with routine healing. COMPARISON: 12/30/2023 FINDINGS: There are postsurgical changes status post distal femoral ORIF with a plate and screws. There is chronic posttraumatic deformity of the distal femur. There is an oblique nondisplaced fracture of the distal femoral diaphysis, stable since 12/30/2023. IMPRESSION: 1. Stable postsurgical changes status post distal femoral ORIF with a plate and screws. 2. Oblique nondisplaced fracture of the distal femoral diaphysis, stable since 12/30/2023. Finalized by Young El MD on 01/25/2024 4:11 PM Normal [facility] XR KNEE LT 1 OR 2 VWSon 10-1 XR KNEE LT 1 OR 2 VWS XR KNEE LT 1 OR 2 VWS EXAM: XR KNEE LT 1 OR 2 VWS CLINICAL INFORMATION: Closed displaced supracondylar fracture with intracondylar extension of lower end of left femur with routine healing. COMPARISON: 11/09/2023 FINDINGS: There is partial visualization of femoral ORIF with a plate and screws. There is chronic posttraumatic deformity of the distal femur. There is an oblique nondisplaced fracture of the distal femur, not convincingly seen on the prior examination. There is no convincing radiographic evidence for hardware complications or failure. There is generalized osteopenia. There is localized moderately severe DJD of the medial compartment. IMPRESSION: 1. Partially visualized changes of distal femoral ORIF with chronic posttraumatic deformity of the distal femur. There is an oblique nondisplaced fracture of the distal femoral diaphysis, not convincingly seen on the prior examination. 2. 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 Finalized by Young El MD on 01/25/2024 4:09 PM Normal [facility] CT ABDOMEN AND PELVIS WO CON Ton 01-23-2024 CT ABDOMEN AND PELVIS WO CONT CT ABDOMEN AND PELVIS WO CONT CLINICAL HISTORY: A 58-year-old female with the history of the pelvic pain and postmenopausal bleeding. Negative beta-hCG. TECHNIQUE: Multidetector spiral CT scan of the abdomen and pelvis is performed without intravenous contrast administration. Multiplanar reconstruction images are reformatted. All CT scans at this facility use dose modulation, iterative reconstruction, and/or weight based dosing when appropriate to reduce radiation dose to as low as reasonably achievable. COMPARISON: Comparison is made with the CT scan of the abdomen and pelvis of 12/17/2023. FINDINGS: Examination is compromised due to patient's body habitus. There is a left basilar atelectasis. No pleural effusions are seen. Liver, spleen and the pancreas are unremarkable. There is evidence of cholecystectomy. No biliary ductal dilatation is identified. Adrenal glands are not enlarged. Both kidneys are normal in position. There is no evidence of calcified calculi, hydronephrosis or perinephric stranding. There is a 2.5 cm cyst in the inferior portion of the right kidney. Urinary bladder is normal while distended. Uterus is anteverted. There is presence of the intrauterine contraceptive device in the lower uterine segment. No discrete mass is seen in the uterine wall. Previously noted prominent endometrial canal is no longer identified. There is a stable 4 cm left ovarian cyst. No free fluid is seen in the pelvis. Bowel gas pattern is nonobstructive. There is a left-sided ventral hernia in the region of the prior hernia repair surgery. There is a presence of the bowel loop in the small hernia. No high-grade obstruction is identified. There are vascular calcifications. No free fluid is seen in the abdomen and pelvis. 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 IMPRESSION: 1. Uterus is anteverted. There is presence of the intrauterine contraceptive device in the lower uterine segment. Previously noted prominent endometrial canal is no longer identified. 2. There is a stable 4 cm left ovarian cyst. No free fluid is seen in the cul-de-sac. 3. There is a left-sided ventral hernia adjacent to the hernia repair surgery with presence of the bowel loop. No high-grade obstruction is seen. 4. There is a 2.5 cm right renal cyst. No evidence of calcified calculi or hydronephrosis. 5. Status post cholecystectomy. 6. No free fluid in the abdomen and pelvis. 7. Atelectasis in the left lower lung. Finalized by Germán Lassiter MD on 01/23/2024 10:18 AM Normal [facility] Follow-Upon 01-04-2024 Follow-Up [id number] Matthew Neal 1965 F Date Provider Department Center 01/04/2024 [facility] Second Fl Family History Family history unknown: Yes Level of Service:80419 [place] OFFICE/OUTPATIENT ESTABLISHED LOW MDM 20 MIN Reason for Visit and Comments: Follow-up [114441] - Matthew is here today for Infected prosthetic mesh of abdominal wall, s/p umbilical hernia repair with mesh- 1 mth f/u Normal [facility] XR FEMUR LT 2+ VIEWSon 12-29 XR FEMUR LT 2+ VIEWS XR FEMUR LT 2+ VIEW S Comparison November 08 XR FEMUR LT 2+ VIEWS Closed fracture of distal end of left femur with routine healing, unspecified fracture morphology, subsequent encounter Impression: 1. Stable appearance of fracture morphology and transfixing hardware. Stable positioning and alignment. Finalized by Reji Matos MD on 12/30/2023 11:40 AM Normal [facility] 36on 12-29-2023 36 [facility] called in regards to schedule hospital follow up but will also need to schedule egd and colonoscopy . I already scheduled her hospital follow up Normal [facility] CBC AND AUTO DIFFon 12-26-19 24 ABSOLUTE BASOPHIL 0.0 X10E9/L Normal 0.0-0.2 [facility] Comment on above: Performed By: #### C WALLACE CMP, , 2776-04 ####[facility] ([id number])[address], [address], [place] [address] ABSOLUTE NEUTROPHIL 5.6 X10E9/L Normal 1.5-6.6 [facility] Comment on above: Performed By: #### Darlene GONSALEZ CMP, , 2776-04 ####[facility] ([id number])[address], [address], [place] [address] Basophils/100 WBC (Bld) 0.7 % Normal [facility] Comment on above: Performed By: #### Darlene GONSALEZ CMP, , 2776-04 ####[facility] ([id number])[address], [address], [place] [address] Eosinophils (Bld) [#/Vol] 0.3 10*3/uL Normal 0.0-0.4 [facility] Comment on above: Performed By: #### Darlene GONSALEZ CMP, , 2776-04 ####[facility] ([id number])[address], [address] [place] [address] Eosinophils/100 WBC (Bld) 4.1 % Normal [facility] Comment on above: Performed By: #### Darlene BCA CMP, 04517-22776-04 ####[facility] ([id number])[address], [address] [place] [address] Erythrocyte distribution width (RBC) [Ratio] 18.1 % High 11.5-15.0 [facility] Comment on above: Performed By: #### C WALLACE CMP, , 2776-04 ####[facility] ([id number])[address], [address] [place] [address] Hematocrit (Bld) [Volume fraction] 23.3 % Low 35-47 [facility] Comment on above: Performed By: #### Darlene GONSALEZ CMP, , 2776-04 ####[facility] ([id number])[address], [address], [place] [address] Hemoglobin (Bld) [Mass/Vol] 7.5 g/dL Low 11.7-15.5 [facility] Comment on above: Performed By: #### Darlene GONSALEZ, CMP, , 2776-04 ####[facility] ([id number])[address] [address] [place] [address] Lymphocytes (Bld) [#/Vol] 0.6 10*3/uL Low 1.0-3.5 [facility] Comment on above: Performed By: #### Darlene GONSALEZ CMP, , 2776-04 ####[facility] ([id number])[address] [address], [place] [address] Lymphocytes/100 WBC (Bld) 8.3 % Normal [facility] Comment on above: Performed By: #### Darlene GONSALEZ, CMP, , 2776-04 ####[facility] ([id number])[address], [address], [place] [address] MCH (RBC) [Entitic mass] 31.4 pg Normal 27-34 [facility] Comment on above: Performed By: #### Darlene GONSALEZ CMP, , 2776-04 ####[facility] ([id number])[address], [address] [place] [address] MCHC (RBC) [Mass/Vol] 32.3 g/dL Normal 32-36 [facility] Comment on above: Performed By: #### C BCA, CMP, , 2776-04 ####[facility] ([id number])[address], [address], [place] [address] MCV (RBC) [Entitic vol] 97 fL Normal 80-100 [facility] Comment on above: Performed By: #### C BCA, CMP, , 2776-04 ####[facility] ([id number])[address], [address], [place] [address] Monocytes (Bld) [#/Vol] 0.4 10*3/uL Normal 0-0.9 [facility] Comment on above: Performed By: #### C BCA, CMP, , 2776-04 ####[facility] ([id number])[address] [address], [place] [address] Monocytes/100 WBC (Bld) 6.0 % Normal [facility] Comment on above: Performed By: #### C WALLACE, CMP, , 2776-04 ####[facility] ([id number])[address], [address], [place] [address] Neutrophils/100 WBC (Bld) 80.9 % Normal [facility] Comment on above: Performed By: #### C BCA, CMP, , 2776-04 ####[facility] ([id number])[address], [address], [place] [address] Platelet mean volume (Bld) [Entitic vol] 7.6 fL Normal 7-12 [facility] Comment on above: Performed By: #### C BCA, CMP, , 2776-04 ####[facility] ([id number])[address], [address], [place] [address] Platelets (Bld) [#/Vol] 166 10*3/uL Normal 150-450 [facility] Comment on above: Performed By: #### C BCA, CMP, , 2776- ####[facility] ([id number])[address], [address], [place] [address] RBC COUNT 2.39 X10E12/L Low 3.80-5.20 [facility] Comment on above: Performed By: #### C BCA, CMP, , 2776-04 ####[facility] ([id number])[address] [address] [place] [address] WBC (Bld) [#/Vol] 6.9 10*3/uL Normal 4.0-11.0 [facility] Comment on above: Performed By: #### C BCA, CMP, , 2776-04 ####[facility] ([id number])[address] [address] [place] [address], [place] [address] COMPREHENSIVE METABOLIC PANE Anibal 12-26-2023 Albumin [Mass/Vol] 2.6 g/dL Low 3.2-5.3 [facility] Comment on above: Performed By: #### C BCA, CMP, , 2776-04 ####[facility] ([id number])[address] [address], [place] [address] ALP [Catalytic activity/Vol] 141 U/L High 39-130 [facility] Comment on above: Performed By: #### C BCA, CMP, , 2776-04 ####[facility] ([id number])[address], [address], [place] [address] ALT [Catalytic activity/Vol] 7 U/L Normal 0-31 [facility] Comment on above: Performed By: #### C BCA, CMP, , 2776-04 ####[facility] ([id number])[address], [address], [place] [address] Anion gap [Moles/Vol] 10 mmol/L Normal 5-15 [facility] Comment on above: Performed By: #### C BCA, CMP, , 2776-04 ####[facility] ([id number])[address], [address], [place] [address] AST [Catalytic activity/Vol] 8 U/L Normal 0-41 [facility] Comment on above: Performed By: #### C BCA, CMP, , 2776-04 ####[facility] ([id number])[address], [address], [place] [address] Bilirubin [Mass/Vol] 0.4 mg/dL Normal 0.3-1.2 [facility] Comment on above: Performed By: #### C BCA, CMP, , 2776-04 ####[facility] ([id number])[address], [address], [place] [address] Calcium [Mass/Vol] 7.7 mg/dL Low 8.5-10.5 [facility] Comment on above: Performed By: #### C BCA, CMP, , 2776-04 ####[facility] ([id number])[address], [address], [place] [address] Chloride [Moles/Vol] 102 mmol/L Normal 98-109 [facility] Comment on above: Performed By: #### C BCA, CMP, , 2776-04 ####[facility] ([id number])[address], [address], [place] [address] CO2 [Moles/Vol] 25 mmol/L Normal 22-32 [facility] Comment on above: Performed By: #### C BCA, CMP, , 2776-04 ####[facility] ([id number])[address] [address], [place] [address] Creatinine [Mass/Vol] 3.68 mg/dL High 0.40-1.00 [facility] Comment on above: Result Comment: METH OD TRACEABLE TO IDMS STANDARD Performed By: #### C BCA, CMP, , 2776-04 ####[facility] ([id number])[address] [address], [place] [address] GFR/1.73 sq M.predicted among non-blacks MDRD (S/P/Bld) [Vol rate/Area] 14 mL/min/{1.73_m2} Low >59 [facility] Comment on above: Result Comment: Repo rted eGFR is based on theCKD-EPI 2020 equation that doesnot use a race coefficient. Performed By: #### C BCA, CMP, , 2776-04 ####[facility] ([id number])[address] [address] Glucose [Mass/Vol] 79 mg/dL Normal 65-99 [facility] Comment on above: Performed By: #### C BCA, CMP, , 2776-04 ####[facility] ([id number])[address] [address], [place] [address] Potassium [Moles/Vol] 4.3 mmol/L Normal 3.5-5.0 [facility] Comment on above: Performed By: #### C BCA, CMP, , 2776-04 ####[facility] ([id number])[address] [address], [place] [address] Protein [Mass/Vol] 4.8 g/dL Low 6.0-8.0 [facility] Comment on above: Performed By: #### C BCA, CMP, , 2776-04 ####[facility] ([id number])[address], [address] [place] [address] Sodium [Moles/Vol] 137 mmol/L Normal 134-146 [facility] Comment on above: Performed By: #### C BCA, CMP, , 2776-04 ####[facility] ([id number])[address], [address] [place] [address] Urea nitrogen [Mass/Vol] 27 mg/dL High 5-23 [facility] Comment on above: Performed By: #### C BCA, CMP, , 2776-04 ####[facility] ([id number])[address], [address] [place] [address] Calcium.ionized (Bld) [Mass/ Vol]on 12-26-2023 IONIZED CALCIUM 4.4 mg/dL Low 4.5-5.3 [facility] Comment on above: Performed By: #### 3 8230-9 ####[facility] ([id number])[address], [address] [place] [address] Glucose Glucometer (BldC) [M ass/Vol]on 12-26-2023 Glucose [Mass/Vol] 92 mg/dL Normal 65-99 [facility] Glucose [Mass/Vol] 76 mg/dL Normal 65-99 [facility] Glucose [Mass/Vol] 87 mg/dL Normal 65-99 [facility] Glucose [Mass/Vol] 68 mg/dL Normal 65-99 [facility] MAGNESIUMon 12-26-2023 Magnesium [Mass/Vol] 2.2 mg/dL Normal 1.8-2.6 [facility] Comment on above: Performed By: #### C BCA, CMP, , 2776-04 ####[facility] ([id number])[address], [address], [place] [address] PHOSPHORUSon 12-26-2023 Phosphate [Mass/Vol] 3.3 mg/dL Normal 2.4-4.9 [facility] Comment on above: Performed By: #### C WALLACE, CMP, , 2776-04 ####[facility] ([id number])[address], [address], [place] [address] CBC AND AUTO DIFFon 12-25-19 ABSOLUTE BASOPHIL 0.1 X10E9/L Normal 0.0-0.2 [facility] Comment on above: Performed By: #### C WALLACE, CMP, , 2776-04 ####[facility] ([id number])[address], [address] [place] [address] ABSOLUTE NEUTROPHIL 5.6 X10E9/L Normal 1.5-6.6 [facility] Comment on above: Performed By: #### Darlene BCA, CMP, , 2776-04 ####[facility] ([id number])[address] [address] [place] [address] Basophils/100 WBC (Bld) 0.8 % Normal [facility] Comment on above: Performed By: #### Darlene BCA, CMP, , 2776-04 ####[facility] ([id number])[address], [address] [place] [address] Eosinophils (Bld) [#/Vol] 0.2 10*3/uL Normal 0.0-0.4 [facility] Comment on above: Performed By: #### C BCA, CMP, , 2776-04 ####[facility] ([id number])[address], [address] [place] [address] Eosinophils/100 WBC (Bld) 3.2 % Normal [facility] Comment on above: Performed By: #### Darlene BCA, CMP, , 2776-04 ####[facility] ([id number])[address], [address], [place] [address] Erythrocyte distribution width (RBC) [Ratio] 18.2 % High 11.5-15.0 [facility] Comment on above: Performed By: #### C WALLACE CMP, , 2776-04 ####[facility] ([id number])[address], [address] [place] [address] Hematocrit (Bld) [Volume fraction] 23.1 % Low 35-47 [facility] Comment on above: Performed By: #### C WALLACE, CMP, , 2776-04 ####[facility] ([id number])[address] [address], [place] [address] Hemoglobin (Bld) [Mass/Vol] 7.5 g/dL Low 11.7-15.5 [facility] Comment on above: Performed By: #### C BCA, CMP, , 2776-04 ####[facility] ([id number])[address] [address] [place] [address] Lymphocytes (Bld) [#/Vol] 0.6 10*3/uL Low 1.0-3.5 [facility] Comment on above: Performed By: #### C WALLACE CMP, , 2776-04 ####[facility] ([id number])[address] [address] [place] [address] Lymphocytes/100 WBC (Bld) 8.3 % Normal [facility] Comment on above: Performed By: #### C BCA, CMP, , 2776-04 ####[facility] ([id number])[address] [address], [place] [address] MCH (RBC) [Entitic mass] 31.3 pg Normal 27-34 [facility] Comment on above: Performed By: #### C BCA, CMP, , 2776-04 ####[facility] ([id number])[address], [address] [place] [address] MCHC (RBC) [Mass/Vol] 32.5 g/dL Normal 32-36 [facility] Comment on above: Performed By: #### C BCA, CMP, , 2776-04 ####[facility] ([id number])[address], [place] [address] MCV (RBC) [Entitic vol] 96 fL Normal 80-100 [facility] Comment on above: Performed By: #### C BCA, CMP, , 2776-04 ####[facility] ([id number])[address], [address], [place] [address] Monocytes (Bld) [#/Vol] 0.5 10*3/uL Normal 0-0.9 [facility] Comment on above: Performed By: #### C BCA, CMP, , 2776-04 ####[facility] ([id number])[address] [address], [place] [address] Monocytes/100 WBC (Bld) 6.9 % Normal [facility] Comment on above: Performed By: #### C WALLACE, CMP, , 2776-04 ####[facility] ([id number])[address], [address], [place] [address] Neutrophils/100 WBC (Bld) 80.8 % Normal [facility] Comment on above: Performed By: #### C BCA, CMP, , 2776-04 ####[facility] ([id number])[address], [place] [address] Platelet mean volume (Bld) [Entitic vol] 7.3 fL Normal 7-12 [facility] Comment on above: Performed By: #### C BCA, CMP, , 2776-04 ####[facility] ([id number])[address] [address], [place] [address] Platelets (Bld) [#/Vol] 154 10*3/uL Normal 150-450 [facility] Comment on above: Performed By: #### C BCA, CMP, , 2776- ####[facility] ([id number])[address], [address] [place] [address] RBC COUNT 2.40 X10E12/L Low 3.80-5.20 [facility] Comment on above: Performed By: #### C BCA, CMP, , 2776-04 ####[facility] ([id number])[address] [address] [place] [address] WBC (Bld) [#/Vol] 6.9 10*3/uL Normal 4.0-11.0 [facility] Comment on above: Performed By: #### C BCA, CMP, , 2776-04 ####[facility] ([id number])[address] [address] [place] [address], [place] [address] COMPREHENSIVE METABOLIC PANE Anibal 12-25-2023 Albumin [Mass/Vol] 2.9 g/dL Low 3.2-5.3 [facility] Comment on above: Performed By: #### C BCA, CMP, , 2776-04 ####[facility] ([id number])[address] [address], [place] [address] ALP [Catalytic activity/Vol] 150 U/L High 39-130 [facility] Comment on above: Performed By: #### C BCA, CMP, , 2776-04 ####[facility] ([id number])[address], [place] [address] ALT [Catalytic activity/Vol] 7 U/L Normal 0-31 [facility] Comment on above: Performed By: #### C BCA, CMP, , 2776-04 ####[facility] ([id number])[address], [address], [place] [address] Anion gap [Moles/Vol] 12 mmol/L Normal 5-15 [facility] Comment on above: Performed By: #### C BCA, CMP, , 2776-04 ####[facility] ([id number])[address], [address], [place] [address] AST [Catalytic activity/Vol] 8 U/L Normal 0-41 [facility] Comment on above: Performed By: #### C BCA, CMP, , 2776-04 ####[facility] ([id number])[address], [address], [place] [address] Bilirubin [Mass/Vol] 0.3 mg/dL Normal 0.3-1.2 [facility] Comment on above: Performed By: #### C BCA, CMP, , 2776-04 ####[facility] ([id number])[address], [address], [place] [address] Calcium [Mass/Vol] 7.9 mg/dL Low 8.5-10.5 [facility] Comment on above: Performed By: #### C BCA, CMP, , 2776-04 ####[facility] ([id number])[address], [place] [address] Chloride [Moles/Vol] 100 mmol/L Normal 98-109 [facility] Comment on above: Performed By: #### C BCA, CMP, , 2776-04 ####[facility] ([id number])[address], [address], [place] [address] CO2 [Moles/Vol] 24 mmol/L Normal 22-32 [facility] Comment on above: Performed By: #### C BCA, CMP, , 2776-04 ####[facility] ([id number])[address], [place] [address] Creatinine [Mass/Vol] 2.74 mg/dL High 0.40-1.00 [facility] Comment on above: Result Comment: METH OD TRACEABLE TO IDMS STANDARD Performed By: #### C BCA, CMP, , 2776-04 ####[facility] ([id number])[address] [address], [place] [address] GFR/1.73 sq M.predicted among non-blacks MDRD (S/P/Bld) [Vol rate/Area] 20 mL/min/{1.73_m2} Low >59 [facility] Comment on above: Result Comment: Repo rted eGFR is based on theCKD-EPI 2020 equation that doesnot use a race coefficient. Performed By: #### C BCA, CMP, , 2776-04 ####[facility] ([id number])[address] [address], [place] [address] Glucose [Mass/Vol] 127 mg/dL High 65-99 [facility] Comment on above: Performed By: #### C BCA, CMP, , 2776-04 ####[facility] ([id number])[address] [address], [place] [address] Potassium [Moles/Vol] 4.1 mmol/L Normal 3.5-5.0 [facility] Comment on above: Performed By: #### C BCA, CMP, , 2776-04 ####[facility] ([id number])[address] [address], [place] [address] Protein [Mass/Vol] 5.2 g/dL Low 6.0-8.0 [facility] Comment on above: Performed By: #### C WALLACE CMP, , 2776-04 ####[facility] ([id number])[address], [place] [address] Sodium [Moles/Vol] 136 mmol/L Normal 134-146 [facility] Comment on above: Performed By: #### C WALLACE CMP, , 2776-04 ####[facility] ([id number])[address], [place] [address] Urea nitrogen [Mass/Vol] 20 mg/dL Normal 5-23 [facility] Comment on above: Performed By: #### C POLI GONSALEZ, , 2776-04 ####[facility] ([id number])[address], [place] [address] Glucose Glucometer (BldC) [M ass/Vol]on 12-25-2023 Glucose [Mass/Vol] 74 mg/dL Normal 65-99 [facility] Glucose [Mass/Vol] 76 mg/dL Normal 65-99 [facility] Glucose [Mass/Vol] 100 mg/dL High 65-99 [facility] Glucose [Mass/Vol] 105 mg/dL High 65-99 [facility] MAGNESIUMon 12-25-2023 Magnesium [Mass/Vol] 1.9 mg/dL Normal 1.8-2.6 [facility] Comment on above: Performed By: #### C WALLACE, CMP, , 2776-04 ####[facility] ([id number])[address], [place] [address] Magnesium Ionized ISE (Bld) [Moles/Vol]on 12-25-2023 Magnesium [Moles/Vol] 0.71 mmol/L Normal 0.45-0.74 [facility] Comment on above: Result Comment: NEW REFERENCE RANGE Performed By: #### 7 3572-0 ####[facility] ([id number])[address], [place] [address] PHOSPHORUSon 12-25-2023 Phosphate [Mass/Vol] 2.7 mg/dL Normal 2.4-4.9 [facility] Comment on above: Performed By: #### C BCA, CMP, 38376-1, 2777-1 ####[facility] ([id number])[address] [place] [address] ARTERIAL BLOOD GASon 024 TRIXIE'S TEST Pass Normal [facility] Comment on above: Performed By: #### A BG ####[facility] ([id number])[address] [place] [address] BASE,DEFICIT 2.0 MMOL/L Normal 0.0-2.0 [facility] Comment on above: Performed By: #### A BG ####[facility] ([id number])[address] [place] [address] Body temperature 98.6 [degF] Normal 37.0 [facility] Comment on above: Performed By: #### A BG ####[facility] ([id number])[address] [place] [address] HCO3 (Bld) [Moles/Vol] 22.6 mmol/L Normal 22-26 [facility] Comment on above: Performed By: #### A BG ####[facility] ([id number])[address] [place] [address] INSP. O2 CONC. 40 % Normal [facility] Comment on above: Performed By: #### A BG ####[facility] ([id number])[address] [place] [address] Oxygen (Bld) [Partial pressure] 129 mm[Hg] High 80-100 [facility] Comment on above: Performed By: #### A BG ####[facility] ([id number])[address] [place] [address] Oxygen saturation in Blood 99.0 % Normal >90 [facility] Comment on above: Performed By: #### A BG ####[facility] ([id number])[address] [place] [address] OXYGEN SOURCE [facility] Comment on above: Performed By: #### A BG ####[facility] ([id number])[address] [place] [address] PCO2 37.5 MMHG Normal 35-45 [facility] Comment on above: Performed By: #### A BG ####[facility] ([id number])[address] [place] [address] pH (Bld) 7.389 [pH] Normal 7.350-7.450 [facility] Comment on above: Performed By: #### A BG ####[facility] ([id number])[address] [place] [address] SAMPLE SITE [facility] Comment on above: Performed By: #### A BG ####[facility] ([id number])[address] [place] [address] SAMPLE TYPE ARTERIAL Normal [facility] Comment on above: Performed By: #### A BG ####[facility] ([id number])[address] [place] [address] CBC AND AUTO DIFFon 12-24-19 24 ABSOLUTE BASOPHIL 0.1 X10E9/L Normal 0.0-0.2 [facility] Comment on above: Performed By: #### C BCA, CMP, 60237-5, 2777-1 ####[facility] ([id number])[address] [facility], [address] [place] [address], [place] [address] ABSOLUTE NEUTROPHIL 3.9 X10E9/L Normal 1.5-6.6 [facility] Comment on above: Performed By: #### C WALLACE, CMP, , 2776-04 ####[facility] ([id number])[address] [address] [place] [address] Basophils/100 WBC (Bld) 1.2 % Normal [facility] Comment on above: Performed By: #### C BCA, CMP, , 2776-04 ####[facility] ([id number])[address] [address], [place] [address] Eosinophils (Bld) [#/Vol] 0.2 10*3/uL Normal 0.0-0.4 [facility] Comment on above: Performed By: #### C WALLACE, CMP, , 2776-04 ####[facility] ([id number])[address] [address], [place] [address] Eosinophils/100 WBC (Bld) 4.4 % Normal [facility] Comment on above: Performed By: #### C WALLACE, [facility], , 2776-04 ####[facility] ([id number])[address] [address] [place] [address] Erythrocyte distribution width (RBC) [Ratio] 18.6 % High 11.5-15.0 [facility] Comment on above: Performed By: #### C WALLACE, CMP, , 2776-04 ####[facility] ([id number])[address] [address] [place] [address] Hematocrit (Bld) [Volume fraction] 22.7 % Low 35-47 [facility] Comment on above: Performed By: #### C BCA, CMP, , 2776-04 ####[facility] ([id number])[address] [address] [place] [address] Hemoglobin (Bld) [Mass/Vol] 7.2 g/dL Low 11.7-15.5 [facility] Comment on above: Performed By: #### C WALLACE CMP, , 2776-04 ####[facility] ([id number])[address], [place] [address] Lymphocytes (Bld) [#/Vol] 0.7 10*3/uL Low 1.0-3.5 [facility] Comment on above: Performed By: #### C WALLACE CMP, , 2776-04 ####[facility] ([id number])[address], [place] [address] Lymphocytes/100 WBC (Bld) 12.9 % Normal [facility] Comment on above: Performed By: #### Darlene GONSALEZ CMP, , 2776-04 ####[facility] ([id number])[address], [place] [address] MCH (RBC) [Entitic mass] 30.5 pg Normal 27-34 [facility] Comment on above: Performed By: #### C POLI GONSALEZ, , 2776-04 ####[facility] ([id number])[address], [address] [place] [address] MCHC (RBC) [Mass/Vol] 31.7 g/dL Low 32-36 [facility] Comment on above: Performed By: #### Darlene GONSALEZ CMP, , 2776-04 ####[facility] ([id number])[address], [place] [address] MCV (RBC) [Entitic vol] 96 fL Normal 80-100 [facility] Comment on above: Performed By: #### Darlene GONSALEZ CMP, , 2776-04 ####[facility] ([id number])[address], [place] [address] Monocytes (Bld) [#/Vol] 0.4 10*3/uL Normal 0-0.9 [facility] Comment on above: Performed By: #### C WALLACE, CMP, , 2776-04 ####[facility] ([id number])[address] [place] [address] Monocytes/100 WBC (Bld) 7.9 % Normal [facility] Comment on above: Performed By: #### C BCA, CMP, , 2776-04 ####[facility] ([id number])[address] [place] [address] Neutrophils/100 WBC (Bld) 73.6 % Normal [facility] Comment on above: Performed By: #### Darlene BCA, CMP, , 2776-04 ####[facility] ([id number])[address] [place] [address] Platelet mean volume (Bld) [Entitic vol] 8.0 fL Normal 7-12 [facility] Comment on above: Performed By: #### Darlene GONSALEZ, CMP, , 2776-04 ####[facility] ([id number])[address] [place] [address] Platelets (Bld) [#/Vol] 144 10*3/uL Low 150-450 [facility] Comment on above: Performed By: #### Darlene BCA, CMP, , 2776-04 ####[facility] ([id number])[address] [place] [address] RBC COUNT 2.36 X10E12/L Low 3.80-5.20 [facility] Comment on above: Performed By: #### C BCA, CMP, , 2776-04 ####[facility] ([id number])[address], [place] [address] WBC (Bld) [#/Vol] 5.3 10*3/uL Normal 4.0-11.0 [facility] Comment on above: Performed By: #### C BCA, CMP, , 2776- ####[facility] ([id number])[address], [place] [address] COMPREHENSIVE METABOLIC PANE Anibal 12-24-2023 Albumin [Mass/Vol] 2.7 g/dL Low 3.2-5.3 [facility] Comment on above: Performed By: #### C BCA, CMP, , 2776-04 ####[facility] ([id number])[address], [address], [place] [address] ALP [Catalytic activity/Vol] 141 U/L High 39-130 [facility] Comment on above: Performed By: #### C BCA, CMP, , 2776-04 ####[facility] ([id number])[address], [address], [place] [address] ALT [Catalytic activity/Vol] 7 U/L Normal 0-31 [facility] Comment on above: Performed By: #### C BCA, CMP, , 2776-04 ####[facility] ([id number])[address], [address], [place] [address] Anion gap [Moles/Vol] 12 mmol/L Normal 5-15 [facility] Comment on above: Performed By: #### C BCA, CMP, , 2776-04 ####[facility] ([id number])[address], [address], [place] [address] AST [Catalytic activity/Vol] 12 U/L Normal 0-41 [facility] Comment on above: Performed By: #### C BCA, CMP, , 2776- ####[facility] ([id number])[address], [address], [place] [address] Bilirubin [Mass/Vol] 0.4 mg/dL Normal 0.3-1.2 [facility] Comment on above: Performed By: #### C BCA, CMP, , 2776-04 ####[facility] ([id number])[address], [address], [place] [address] Calcium [Mass/Vol] 7.5 mg/dL Low 8.5-10.5 [facility] Comment on above: Performed By: #### C BCA, CMP, , 2776-04 ####[facility] ([id number])[address], [address], [place] [address] Chloride [Moles/Vol] 98 mmol/L Normal 98-109 [facility] Comment on above: Performed By: #### C BCA, CMP, , 2776-04 ####[facility] ([id number])[address] [address], [place] [address] CO2 [Moles/Vol] 21 mmol/L Low 22-32 [facility] Comment on above: Performed By: #### C BCA, CMP, , 2776-04 ####[facility] ([id number])[address] [address] [place] [id number] Creatinine [Mass/Vol] 3.49 mg/dL High 0.40-1.00 [facility] Comment on above: Result Comment: METH OD TRACEABLE TO IDMS STANDARD Performed By: #### C BCA, CMP, , 2776-04 ####[facility] ([id number])[address] [address], [place] [address] GFR/1.73 sq M.predicted among non-blacks MDRD (S/P/Bld) [Vol rate/Area] 15 mL/min/{1.73_m2} Low >59 [facility] Comment on above: Result Comment: Repo rted eGFR is based on theCKD-EPI 2020 equation that doesnot use a race coefficient. Performed By: #### C POLI GONSALEZ, , 2776-04 ####[facility] ([id number])[address] [address], [place] [address] Glucose [Mass/Vol] 91 mg/dL Normal 65-99 [facility] Comment on above: Performed By: #### C WALLACE [facility], , 2776-04 ####[facility] ([id number])[address] [address], [place] [address] Potassium [Moles/Vol] 4.5 mmol/L Normal 3.5-5.0 [facility] Comment on above: Performed By: #### C POLI GONSALEZ, , 2776-04 ####[facility] ([id number])[address] [address], [place] [address] Protein [Mass/Vol] 4.7 g/dL Low 6.0-8.0 [facility] Comment on above: Performed By: #### C WALLACE [facility], , 2776-04 ####[facility] ([id number])[address] [address], [place] [address] Sodium [Moles/Vol] 131 mmol/L Low 134-146 [facility] Comment on above: Performed By: #### C POLI GONSALEZ, , 2776-04 ####[facility] ([id number])[address] [address], [place] [address] Urea nitrogen [Mass/Vol] 25 mg/dL High 5-23 [facility] Comment on above: Performed By: #### C POLI GONSALEZ, , 2776-04 ####[facility] ([id number])[address] [address], [place] [address] Glucose Glucometer (BldC) [M ass/Vol]on 12-24-2023 Glucose [Mass/Vol] 91 mg/dL Normal 65-99 [facility] Glucose [Mass/Vol] 91 mg/dL Normal 65-99 [facility] Glucose [Mass/Vol] 94 mg/dL Normal 65-99 [facility] Glucose [Mass/Vol] 94 mg/dL Normal 65-99 [facility] Glucose [Mass/Vol] 69 mg/dL Normal 65-99 [facility] MAGNESIUMon 12-24-2023 Magnesium [Mass/Vol] 1.7 mg/dL Low 1.8-2.6 [facility] Comment on above: Performed By: #### Darlene GONSALEZ CMP, 84400-1, 2777-1 ####[facility] ([id number])[address], [place] [address] PHOSPHORUSon 12-24-2023 Phosphate [Mass/Vol] 3.5 mg/dL Normal 2.4-4.9 [facility] Comment on above: Result Comment: SPEC IMEN HEMOLYZED, RESULTS INCREASEDSLIGHTLY HEMOLYZED Performed By: #### Darlene GONSALEZ CMP, 32841-2, 2777-1 ####[facility] ([id number])[address], [address] [place] [address] CBC AND AUTO DIFFon 12-23-19 24 ABSOLUTE BASOPHIL 0.0 X10E9/L Normal 0.0-0.2 [facility] Comment on above: Performed By: #### Darlene GONSALEZ, 97031-8, 40430-5, CMP ####[facility] ([id number])[address], [address], [place] [address] ABSOLUTE NEUTROPHIL 4.4 X10E9/L Normal 1.5-6.6 [facility] Comment on above: Performed By: #### Darlene GONSALEZ, 98297-7, 01032-3, CMP ####[facility] ([id number])[address], [address], [place] [address] Basophils/100 WBC (Bld) 0.8 % Normal [facility] Comment on above: Performed By: #### C WALLACE, 94909-7, 50634-7, CMP ####[facility] ([id number])[address] [address] Eosinophils (Bld) [#/Vol] 0.2 10*3/uL Normal 0.0-0.4 [facility] Comment on above: Performed By: #### C BCA, 49943-1, 90341-9, CMP ####[facility] ([id number])[address] [address] Eosinophils/100 WBC (Bld) 3.8 % Normal [facility] Comment on above: Performed By: #### Darlene GONSALEZ, 22884-6, 45367-6, CMP ####[facility] ([id number])[address] [address] Erythrocyte distribution width (RBC) [Ratio] 18.4 % High 11.5-15.0 [facility] Comment on above: Performed By: #### Darlene BCA, 71151-4, 76499-3, CMP ####[facility] ([id number])[address] [address] Hematocrit (Bld) [Volume fraction] 21.5 % Low 35-47 [facility] Comment on above: Performed By: #### C BCA, 05312-4, 48142-7, CMP ####[facility] ([id number])[address] [address] Hemoglobin (Bld) [Mass/Vol] 7.1 g/dL Low 11.7-15.5 [facility] Comment on above: Performed By: #### Darlene BCA, 38917-0, 19239-9, CMP ####[facility] ([id number])[address] [address] [place] [address] Lymphocytes (Bld) [#/Vol] 0.6 10*3/uL Low 1.0-3.5 [facility] Comment on above: Performed By: #### Darlene GONSALEZ, 44695-9, 60487-0, CMP ####[facility] ([id number])[address] [address] Lymphocytes/100 WBC (Bld) 10.3 % Normal [facility] Comment on above: Performed By: #### Darlene GONSALEZ, 57641-0, 51472-6, CMP ####[facility] ([id number])[address] [address] MCH (RBC) [Entitic mass] 31.7 pg Normal 27-34 [facility] Comment on above: Performed By: #### Darlene GONSALEZ, 10287-5, 06845-8, CMP ####[facility] ([id number])[address] [address] MCHC (RBC) [Mass/Vol] 33.2 g/dL Normal 32-36 [facility] Comment on above: Performed By: #### Darlene GONSALEZ, 03675-1, 54070-1, CMP ####[facility] ([id number])[address] [address] MCV (RBC) [Entitic vol] 96 fL Normal 80-100 [facility] Comment on above: Performed By: #### Darlene GONSALEZ, 94058-5, 89896-2, CMP ####[facility] ([id number])[address] [address] Monocytes (Bld) [#/Vol] 0.5 10*3/uL Normal 0-0.9 [facility] Comment on above: Performed By: #### Darlene GONSALEZ, 63426-3, 56383-1, CMP ####[facility] ([id number])[address], [place] [address] Monocytes/100 WBC (Bld) 7.9 % Normal [facility] Comment on above: Performed By: #### Darlene GONSALEZ, 59261-2, 94359-1, CMP ####[facility] ([id number])[address], [address], [place] [address] Neutrophils/100 WBC (Bld) 77.2 % Normal [facility] Comment on above: Performed By: #### Darlene GONSALEZ, 91530-0, 91230-5, CMP ####[facility] ([id number])[address], [address], [place] [address] Platelet mean volume (Bld) [Entitic vol] 7.1 fL Normal 7-12 [facility] Comment on above: Performed By: #### Darlene GONSALEZ, 16843-6, 29377-1, CMP ####[facility] ([id number])[address] [address] [place] [address] Platelets (Bld) [#/Vol] 137 10*3/uL Low 150-450 [facility] Comment on above: Performed By: #### Darlene GONSALEZ, 11109-0, 51153-8, CMP ####[facility] ([id number])[address], [facility] [address], [place] [address] RBC COUNT 2.25 X10E12/L Low 3.80-5.20 [facility] Comment on above: Performed By: #### Darlene GONSALEZ, 44038-5, 03730-4, CMP ####[facility] ([id number])[address] [address] [place] [address] WBC (Bld) [#/Vol] 5.7 10*3/uL Normal 4.0-11.0 [facility] Comment on above: Performed By: #### Darlene GONSALEZ, 02666-8, 35781-6, CMP ####[facility] ([id number])[address] [place] [address] ABSOLUTE BASOPHIL 0.0 X10E9/L Normal 0.0-0.2 [facility] Comment on above: Performed By: #### C BCA, CMP, , 2776-04 ####[facility] ([id number])[address] [place] [address] ABSOLUTE NEUTROPHIL 4.7 X10E9/L Normal 1.5-6.6 [facility] Comment on above: Performed By: #### C BCA, CMP, , 2776-04 ####[facility] ([id number])[address], [place] [address] Basophils/100 WBC (Bld) 0.8 % Normal [facility] Comment on above: Performed By: #### C BCA, CMP, , 2776-04 ####[facility] ([id number])[address], [address], [place] [address] Eosinophils (Bld) [#/Vol] 0.2 10*3/uL Normal 0.0-0.4 [facility] Comment on above: Performed By: #### C BCA, CMP, , 2776-04 ####[facility] ([id number])[address], [place] [address] Eosinophils/100 WBC (Bld) 3.8 % Normal [facility] Comment on above: Performed By: #### C BCA, CMP, , 2776-04 ####[facility] ([id number])[address] [place] [address] Erythrocyte distribution width (RBC) [Ratio] 18.3 % High 11.5-15.0 [facility] Comment on above: Performed By: #### C WALLACE CMP, , 2776-04 ####[facility] ([id number])[address] [address], [place] [address] Hematocrit (Bld) [Volume fraction] 23.4 % Low 35-47 [facility] Comment on above: Performed By: #### C WALLACE [facility], , 2776-04 ####[facility] ([id number])[address] [address], [place] [address] Hemoglobin (Bld) [Mass/Vol] 7.7 g/dL Low 11.7-15.5 [facility] Comment on above: Performed By: #### C WALLACE [facility], , 2776-04 ####[facility] ([id number])[address] [address] Lymphocytes (Bld) [#/Vol] 0.7 10*3/uL Low 1.0-3.5 [facility] Comment on above: Performed By: #### C WALLACE [facility], , 2776-04 ####[facility] ([id number])[address] [address] Lymphocytes/100 WBC (Bld) 11.8 % Normal [facility] Comment on above: Performed By: #### Darlene GONSALEZ CMP, , 2776-04 ####[facility] ([id number])[address] [address] [place] [address] MCH (RBC) [Entitic mass] 31.6 pg Normal 27-34 [facility] Comment on above: Performed By: #### C WALLACE, CMP, , 2776-04 ####[facility] ([id number])[address] [address], [place] [address] MCHC (RBC) [Mass/Vol] 32.8 g/dL Normal 32-36 [facility] Comment on above: Performed By: #### C WALLACE, CMP, , 2776-04 ####[facility] ([id number])[address], [place] [address] MCV (RBC) [Entitic vol] 96 fL Normal 80-100 [facility] Comment on above: Performed By: #### C WALLACE, CMP, , 2776-04 ####[facility] ([id number])[address] [place] [address] Monocytes (Bld) [#/Vol] 0.4 10*3/uL Normal 0-0.9 [facility] Comment on above: Performed By: #### Darlene GONSALEZ, CMP, , 2776-04 ####[facility] ([id number])[address] [place] [address] Monocytes/100 WBC (Bld) 7.1 % Normal [facility] Comment on above: Performed By: #### Darlene GONSALEZ, CMP, , 2776-04 ####[facility] ([id number])[address] [place] [address] Neutrophils/100 WBC (Bld) 76.5 % Normal [facility] Comment on above: Performed By: #### Darlene BCA, CMP, , 2776-04 ####[facility] ([id number])[address], [address], [place] [address] Platelet mean volume (Bld) [Entitic vol] 7.3 fL Normal 7-12 [facility] Comment on above: Performed By: #### C WALLACE, CMP, , 2776-04 ####[facility] ([id number])[address], [address], [place] [address] Platelets (Bld) [#/Vol] 142 10*3/uL Low 150-450 [facility] Comment on above: Performed By: #### C BCA, CMP, , 2776-04 ####[facility] ([id number])[address], [place] [address] RBC COUNT 2.42 X10E12/L Low 3.80-5.20 [facility] Comment on above: Performed By: #### C BCA, CMP, , 2776-04 ####[facility] ([id number])[address], [address] [place] [address] WBC (Bld) [#/Vol] 6.2 10*3/uL Normal 4.0-11.0 [facility] Comment on above: Performed By: #### C BCA, CMP, , 2776-04 ####[facility] ([id number])[address], [place] [address] COMPREHENSIVE METABOLIC PANE Anibal 12-23-2023 Albumin [Mass/Vol] 2.8 g/dL Low 3.2-5.3 [facility] Comment on above: Performed By: #### C BCA, 06055-3, 87582-0, CMP ####[facility] ([id number])[address] [address], [place] [address] ALP [Catalytic activity/Vol] 135 U/L High 39-130 [facility] Comment on above: Performed By: #### C BCA, 51187-5, 09069-8, CMP ####[facility] ([id number])[address], [place] [address] ALT [Catalytic activity/Vol] 7 U/L Normal 0-31 [facility] Comment on above: Performed By: #### C BCA, 02666-8, 90426-2, CMP ####[facility] ([id number])[address], [place] [address] Anion gap [Moles/Vol] 13 mmol/L Normal 5-15 [facility] Comment on above: Performed By: #### C BCA, 73410-5, 66782-0, CMP ####[facility] ([id number])[address], [place] [address] AST [Catalytic activity/Vol] 7 U/L Normal 0-41 [facility] Comment on above: Performed By: #### C BCA, 36182-2, 58631-1, CMP ####[facility] ([id number])[address], [address], [place] [address] Bilirubin [Mass/Vol] 0.4 mg/dL Normal 0.3-1.2 [facility] Comment on above: Performed By: #### C BCA, 43660-1, 32291-7, CMP ####[facility] ([id number])[address] [place] [place] [address] Calcium [Mass/Vol] 7.1 mg/dL Low 8.5-10.5 [facility] Comment on above: Performed By: #### C BCA, 46568-6, 22152-4, CMP ####[facility] ([id number])[address] [address] [place] [address] Chloride [Moles/Vol] 98 mmol/L Normal 98-109 [facility] Comment on above: Performed By: #### C BCA, 89035-0, 26242-7, CMP ####[facility] ([id number])[address] [place] [place] [address] CO2 [Moles/Vol] 23 mmol/L Normal 22-32 [facility] Comment on above: Performed By: #### C BCA, 00018-6, 93557-3, CMP ####[facility] ([id number])[address] [place] [address] Creatinine [Mass/Vol] 3.04 mg/dL High 0.40-1.00 [facility] Comment on above: Result Comment: METH OD TRACEABLE TO IDMS STANDARD Performed By: #### C WALLACE, 53434-6, 53300-8, CMP ####[facility] ([id number])[address] [address], [place] [address] GFR/1.73 sq M.predicted among non-blacks MDRD (S/P/Bld) [Vol rate/Area] 17 mL/min/{1.73_m2} Low >59 [facility] Comment on above: Result Comment: Repo rted eGFR is based on theCKD-EPI 2020 equation that doesnot use a race coefficient. Performed By: #### C WALLACE, 02254-9, 14276-6, CMP ####[facility] ([id number])[address] [address], [place] [address] Glucose [Mass/Vol] 88 mg/dL Normal 65-99 [facility] Comment on above: Performed By: #### C WALLACE, 70104-4, 50893-4, CMP ####[facility] ([id number])[address] [address], [place] [address] Potassium [Moles/Vol] 4.1 mmol/L Normal 3.5-5.0 [facility] Comment on above: Performed By: #### C BCA, 22541-4, 71817-2, CMP ####[facility] ([id number])[address] [address], [place] [address] Protein [Mass/Vol] 4.8 g/dL Low 6.0-8.0 [facility] Comment on above: Performed By: #### C BCA, 60587-9, 00556-7, CMP ####[facility] ([id number])[address], [place] [address] Sodium [Moles/Vol] 134 mmol/L Normal 134-146 [facility] Comment on above: Performed By: #### C BCA, 20010-3, 94911-9, CMP ####[facility] ([id number])[address], [place] [address] Urea nitrogen [Mass/Vol] 23 mg/dL Normal 5-23 [facility] Comment on above: Performed By: #### C BCA, 41014-1, 71793-3, CMP ####[facility] ([id number])[address], [place] [address] Albumin [Mass/Vol] 2.8 g/dL Low 3.2-5.3 [facility] Comment on above: Performed By: #### C BCA, CMP, , 7- ####[facility] ([id number])[address], [place] [address] ALP [Catalytic activity/Vol] 145 U/L High 39-130 [facility] Comment on above: Performed By: #### C BCA, CMP, , 2776-1 ####[facility] ([id number])[address], [place] [address] ALT [Catalytic activity/Vol] 8 U/L Normal 0-31 [facility] Comment on above: Performed By: #### C BCA, CMP, , 2776-1 ####[facility] ([id number])[address], [place] [address] Anion gap [Moles/Vol] 10 mmol/L Normal 5-15 [facility] Comment on above: Performed By: #### C BCA, CMP, , 2776-1 ####[facility] ([id number])[address], [place] [address] AST [Catalytic activity/Vol] 8 U/L Normal 0-41 [facility] Comment on above: Performed By: #### C BCA, CMP, , 2776-04 ####[facility] ([id number])[address], [place] [address] Bilirubin [Mass/Vol] 0.3 mg/dL Normal 0.3-1.2 [facility] Comment on above: Performed By: #### C BCA, CMP, , 2776-04 ####[facility] ([id number])[address], [place] [address] Calcium [Mass/Vol] 7.9 mg/dL Low 8.5-10.5 [facility] Comment on above: Performed By: #### C BCA, CMP, , 2776-04 ####[facility] ([id number])[address], [place] [address] Chloride [Moles/Vol] 99 mmol/L Normal 98-109 [facility] Comment on above: Performed By: #### C BCA, CMP, , 2776-04 ####[facility] ([id number])[address], [place] [address] CO2 [Moles/Vol] 26 mmol/L Normal 22-32 [facility] Comment on above: Performed By: #### C BCA, CMP, , 2776-04 ####[facility] ([id number])[address], [place] [address] Creatinine [Mass/Vol] 2.89 mg/dL High 0.40-1.00 [facility] Comment on above: Result Comment: METH OD TRACEABLE TO IDMS STANDARD Performed By: #### C BCA, CMP, , 2776-04 ####[facility] ([id number])[address], [place] [address] GFR/1.73 sq M.predicted among non-blacks MDRD (S/P/Bld) [Vol rate/Area] 19 mL/min/{1.73_m2} Low >59 [facility] Comment on above: Result Comment: Repo rted eGFR is based on theCKD-EPI 2020 equation that doesnot use a race coefficient. Performed By: #### C WALLACE [facility], , 2776-04 ####[facility] ([id number])[address] [address], [place] [address] Glucose [Mass/Vol] 78 mg/dL Normal 65-99 [facility] Comment on above: Performed By: #### [facility], , 2776-04 ####[facility] ([id number])[address] [address], [place] [address] Potassium [Moles/Vol] 4.1 mmol/L Normal 3.5-5.0 [facility] Comment on above: Performed By: #### [facility], , 2776-04 ####[facility] ([id number])[address] [address] [place] [address] Protein [Mass/Vol] 5.1 g/dL Low 6.0-8.0 [facility] Comment on above: Performed By: #### [facility], , 2776-04 ####[facility] ([id number])[address] [address] [place] [address] Sodium [Moles/Vol] 135 mmol/L Normal 134-146 [facility] Comment on above: Performed By: #### [facility], , 2776-04 ####[facility] ([id number])[address] [address], [place] [address] Urea nitrogen [Mass/Vol] 24 mg/dL High 5-23 [facility] Comment on above: Performed By: #### C [facility], CMP, 74565-4, 2777-1 ####[facility] ([id number])[address], [address] [place] [address] Calcium.ionized (Bld) [Mass/ Vol]on 12-23-2023 IONIZED CALCIUM 4.5 mg/dL Normal 4.5-5.3 [facility] Comment on above: Performed By: #### 3 8230-9 ####[facility] ([id number])[address], [address] [place] [address] Glucose Glucometer (BldC) [M ass/Vol]on 12-23-2023 Glucose [Mass/Vol] 63 mg/dL Low 65-99 [facility] Glucose [Mass/Vol] 64 mg/dL Low 65-99 [facility] Glucose [Mass/Vol] 78 mg/dL Normal 65-99 [facility] Glucose [Mass/Vol] 76 mg/dL Normal 65-99 [facility] Glucose [Mass/Vol] 79 mg/dL Normal 65-99 [facility] HGB AND HCTon 12-23-2023 Hematocrit (Bld) [Volume fraction] 22.3 % Low 35-47 [facility] Comment on above: Performed By: #### H H ####[facility] ([id number])[address], [address] [place] [address] Hemoglobin (Bld) [Mass/Vol] 7.3 g/dL Low 11.7-15.5 [facility] Comment on above: Performed By: #### H H ####PREMIER [facility] ([id number])[address], [address] [place] [address] Lactate (P catherine) [Moles/Vol]o n 12-23-2023 LACTATE W/REFLEX 1.2 mmol/L Normal 0.4-2.0 [facility] Comment on above: Result Comment: Resu lt did not trigger repeat Lactate,re-order if needed. Performed By: #### C WALLACE, 68275-5, 90846-4, CMP ####[facility] ([id number])[address], [address] [place] [address] MAGNESIUMon 12-23-2023 Magnesium [Mass/Vol] 1.9 mg/dL Normal 1.8-2.6 [facility] Comment on above: Performed By: #### Darlene GONSALEZ CMP, , 2776-1 ####[facility] ([id number])[address], [address] [place] [address] PHOSPHORUSon 12-23-2023 Phosphate [Mass/Vol] 2.9 mg/dL Normal 2.4-4.9 [facility] Comment on above: Performed By: #### Darlene GONSALEZ CMP, , 2776-1 ####[facility] ([id number])[address], [address] [place] [address] Procalcitonin IA [Mass/Vol]o n 12-23-2023 PROCALCITONIN 0.89 ng/mL High <0.05 [facility] Comment on above: Result Comment: NOTE <0.50 ng/mL - Low risk of severe sepsis and/or septic shock.<2.00 ng/mL - Recommend retesting within 6-24 hours.>2.00 ng/mL - High risk of sepsis and/or septic shock. Performed By: #### Darlene GONSALEZ, 06540-1, 49667-3, CMP ####[facility] ([id number])[address] [address] [place] [address] CBC AND AUTO DIFFon 12-22-19 ABSOLUTE BASOPHIL 0.0 X10E9/L Normal 0.0-0.2 [facility] Comment on above: Performed By: #### Darlene GONSALEZ CMP, 10185-8, 2777-1 ####[facility] ([id number])[address] [address] [place] [address] ABSOLUTE NEUTROPHIL 5.0 X10E9/L Normal 1.5-6.6 [facility] Comment on above: Performed By: #### C WALLACE CMP, , 2776-04 ####[facility] ([id number])[address], [address], [place] [address] Basophils/100 WBC (Bld) 0.4 % Normal [facility] Comment on above: Performed By: #### C BCA, CMP, , 2776-04 ####[facility] ([id number])[address] [address], [place] [address] Eosinophils (Bld) [#/Vol] 0.0 10*3/uL Normal 0.0-0.4 [facility] Comment on above: Performed By: #### C WALLACE, CMP, , 2776-04 ####[facility] ([id number])[address], [address], [place] [address] Eosinophils/100 WBC (Bld) 0.6 % Normal [facility] Comment on above: Performed By: #### C BCA, CMP, , 2776-04 ####[facility] ([id number])[address] [address], [place] [address] Erythrocyte distribution width (RBC) [Ratio] 18.1 % High 11.5-15.0 [facility] Comment on above: Performed By: #### C BCA, CMP, , 2776-04 ####[facility] ([id number])[address], [address] [place] [address] Hematocrit (Bld) [Volume fraction] 23.5 % Low 35-47 [facility] Comment on above: Performed By: #### C BCA, CMP, , 2776-04 ####[facility] ([id number])[address], [address] [place] [address] Hemoglobin (Bld) [Mass/Vol] 7.7 g/dL Low 11.7-15.5 [facility] Comment on above: Performed By: #### C WALLACE CMP, , 2776-04 ####[facility] ([id number])[address], [address] [address] Lymphocytes (Bld) [#/Vol] 0.3 10*3/uL Low 1.0-3.5 [facility] Comment on above: Performed By: #### C WALLACE, CMP, , 2776-04 ####[facility] ([id number])[address], [address] [address] Lymphocytes/100 WBC (Bld) 5.8 % Normal [facility] Comment on above: Performed By: #### Darlene BCA, CMP, , 2776-04 ####[facility] ([id number])[address] [address] [place] [address] MCH (RBC) [Entitic mass] 31.4 pg Normal 27-34 [facility] Comment on above: Performed By: #### Darlene BCA, CMP, , 2776-04 ####[facility] ([id number])[address] [address] [place] [address]841 MCHC (RBC) [Mass/Vol] 33.0 g/dL Normal 32-36 [facility] Comment on above: Performed By: #### C BCA, CMP, , 2776-04 ####[facility] ([id number])[address] [address] MCV (RBC) [Entitic vol] 95 fL Normal 80-100 [facility] Comment on above: Performed By: #### Darlene BCA, CMP, , 2776-04 ####[facility] ([id number])[address], [address], [place] [address] Monocytes (Bld) [#/Vol] 0.3 10*3/uL Normal 0-0.9 [facility] Comment on above: Performed By: #### C BCA, CMP, , 2776-04 ####[facility] ([id number])[address], [address] [place] [address] Monocytes/100 WBC (Bld) 4.5 % Normal [facility] Comment on above: Performed By: #### C BCA, CMP, , 2776-04 ####[facility] ([id number])[address], [address] [place] [address] Neutrophils/100 WBC (Bld) 88.7 % Normal [facility] Comment on above: Performed By: #### C BCA, CMP, , 2776-04 ####[facility] ([id number])[address], [address] [place] [address] Platelet mean volume (Bld) [Entitic vol] 7.5 fL Normal 7-12 [facility] Comment on above: Performed By: #### Darlene BCA, CMP, , 2776-04 ####[facility] ([id number])[address], [address] [place] [address] Platelets (Bld) [#/Vol] 128 10*3/uL Low 150-450 [facility] Comment on above: Performed By: #### C BCA, CMP, , 2776-04 ####[facility] ([id number])[address], [address], [place] [address] RBC COUNT 2.47 X10E12/L Low 3.80-5.20 [facility] Comment on above: Performed By: #### C BCA, CMP, , 2776-04 ####[facility] ([id number])[address], [address], [place] [address] WBC (Bld) [#/Vol] 5.6 10*3/uL Normal 4.0-11.0 [facility] Comment on above: Performed By: #### C BCA, CMP, , 2776-04 ####[facility] ([id number])[address], [address], [place] [address] COMPREHENSIVE METABOLIC PANE Anibal 12-22-2023 Albumin [Mass/Vol] 3.1 g/dL Low 3.2-5.3 [facility] Comment on above: Performed By: #### C BCA, CMP, , 2776-04 ####[facility] ([id number])[address] [address], [place] [address] ALP [Catalytic activity/Vol] 152 U/L High 39-130 [facility] Comment on above: Performed By: #### C BCA, CMP, , 2776-04 ####[facility] ([id number])[address] [address], [place] [address] ALT [Catalytic activity/Vol] 7 U/L Normal 0-31 [facility] Comment on above: Performed By: #### C BCA, CMP, , 2776-04 ####[facility] ([id number])[address] [address] [place] [address] Anion gap [Moles/Vol] 12 mmol/L Normal 5-15 [facility] Comment on above: Performed By: #### C BCA, CMP, , 2776- ####[facility] ([id number])[address] [address] [place] [address] AST [Catalytic activity/Vol] 9 U/L Normal 0-41 [facility] Comment on above: Performed By: #### C BCA, CMP, 27958-72776-04 ####[facility] ([id number])[address], [address], [place] [address] Bilirubin [Mass/Vol] 0.3 mg/dL Normal 0.3-1.2 [facility] Comment on above: Performed By: #### C BCA, CMP, , 2776-04 ####[facility] ([id number])[address], [address], [place] [address] Calcium [Mass/Vol] 7.8 mg/dL Low 8.5-10.5 [facility] Comment on above: Performed By: #### C BCA, CMP, , 2776-04 ####[facility] ([id number])[address], [address], [place] [address] Chloride [Moles/Vol] 95 mmol/L Low 98-109 [facility] Comment on above: Performed By: #### C BCA, CMP, , 2776-04 ####[facility] ([id number])[address], [address] [place] [address] CO2 [Moles/Vol] 24 mmol/L Normal 22-32 [facility] Comment on above: Performed By: #### C BCA, CMP, , 2776-04 ####[facility] ([id number])[address], [address], [place] [address] Creatinine [Mass/Vol] 3.64 mg/dL High 0.40-1.00 [facility] Comment on above: Result Comment: METH OD TRACEABLE TO IDMS STANDARD Performed By: #### C BCA, CMP, , 2776-04 ####[facility] ([id number])[address], [address], [place] [address] GFR/1.73 sq M.predicted among non-blacks MDRD (S/P/Bld) [Vol rate/Area] 14 mL/min/{1.73_m2} Low >59 [facility] Comment on above: Result Comment: Repo rted eGFR is based on theCKD-EPI 2020 equation that doesnot use a race coefficient. Performed By: #### C WALLACE CMP, , 2776-04 ####[facility] ([id number])[address], [address], [place] [address] Glucose [Mass/Vol] 120 mg/dL High 65-99 [facility] Comment on above: Performed By: #### C WALLACE, CMP, , 2776-04 ####[facility] ([id number])[address], [address], [place] [address] Potassium [Moles/Vol] 5.1 mmol/L High 3.5-5.0 [facility] Comment on above: Performed By: #### C WALLACE, CMP, , 2776-04 ####[facility] ([id number])[address], [address], [place] [address] Protein [Mass/Vol] 5.4 g/dL Low 6.0-8.0 [facility] Comment on above: Performed By: #### C BCA, CMP, , 2776-04 ####[facility] ([id number])[address], [address], [place] [address] Sodium [Moles/Vol] 131 mmol/L Low 134-146 [facility] Comment on above: Performed By: #### C BCA, CMP, , 2776-04 ####[facility] ([id number])[address], [address], [place] [address] Urea nitrogen [Mass/Vol] 33 mg/dL High 5-23 [facility] Comment on above: Performed By: #### C BCA, CMP, , 2776-04 ####[facility] ([id number])[address], [address] [place] [address] Glucose Glucometer (BldC) [M ass/Vol]on 12-22-2023 Glucose [Mass/Vol] 104 mg/dL High 65-99 [facility] Glucose [Mass/Vol] 81 mg/dL Normal 65-99 [facility] Glucose [Mass/Vol] 105 mg/dL High 65-99 [facility] Glucose [Mass/Vol] 115 mg/dL High 65-99 [facility] MAGNESIUMon 12-22-2023 Magnesium [Mass/Vol] 2.2 mg/dL Normal 1.8-2.6 [facility] Comment on above: Performed By: #### C POLI GONSALEZ, , 1 ####[facility] ([id number])[address], [address] [place] [address] PHOSPHORUSon 12-22-2023 Phosphate [Mass/Vol] 3.7 mg/dL Normal 2.4-4.9 [facility] Comment on above: Performed By: #### Darlene GONSALEZ CMP, , 2776-04 ####[facility] ([id number])[address], [address] [place] [address] CBC AND AUTO DIFFon 12-21-19 24 ABSOLUTE BASOPHIL 0.0 X10E9/L Normal 0.0-0.2 [facility] Comment on above: Performed By: #### Darlene GONSALEZ CMP, , 2776-04 ####[facility] ([id number])[address], [address] [place] [address] ABSOLUTE NEUTROPHIL 2.8 X10E9/L Normal 1.5-6.6 [facility] Comment on above: Performed By: #### Darlene GONSALEZ CMP, , 2776- ####[facility] ([id number])[address], [address] [place] [address] Basophils/100 WBC (Bld) 0.7 % Normal [facility] Comment on above: Performed By: #### C WALLACE, CMP, , 2776-04 ####[facility] ([id number])[address] [address], [place] [address] Eosinophils (Bld) [#/Vol] 0.2 10*3/uL Normal 0.0-0.4 [facility] Comment on above: Performed By: #### C BCA, CMP, , 2776-04 ####[facility] ([id number])[address] [address], [place] [address] Eosinophils/100 WBC (Bld) 5.2 % Normal [facility] Comment on above: Performed By: #### C WALLACE, CMP, , 2776-04 ####[facility] ([id number])[address] [address] [place] [address] Erythrocyte distribution width (RBC) [Ratio] 18.7 % High 11.5-15.0 [facility] Comment on above: Performed By: #### C WALLACE, CMP, , 2776-04 ####[facility] ([id number])[address] [address] [place] [address] Hematocrit (Bld) [Volume fraction] 25.7 % Low 35-47 [facility] Comment on above: Performed By: #### C BCA, CMP, , 2776-04 ####[facility] ([id number])[address] [address] [place] [address] Hemoglobin (Bld) [Mass/Vol] 8.6 g/dL Low 11.7-15.5 [facility] Comment on above: Performed By: #### C BCA, CMP, , 2776-04 ####[facility] ([id number])[address] [address], [place] [address] Lymphocytes (Bld) [#/Vol] 0.7 10*3/uL Low 1.0-3.5 [facility] Comment on above: Performed By: #### C WALLACE, CMP, , 2776-04 ####[facility] ([id number])[address] [address] Lymphocytes/100 WBC (Bld) 18.4 % Normal [facility] Comment on above: Performed By: #### C BCA, CMP, , 2776-04 ####[facility] ([id number])[address] [address] MCH (RBC) [Entitic mass] 31.7 pg Normal 27-34 [facility] Comment on above: Performed By: #### C WALLACE, CMP, , 2776-04 ####[facility] ([id number])[address] [address] [place] [address] MCHC (RBC) [Mass/Vol] 33.3 g/dL Normal 32-36 [facility] Comment on above: Performed By: #### Darlene GONSALEZ, CMP, , 2776-04 ####[facility] ([id number])[address] [address] MCV (RBC) [Entitic vol] 95 fL Normal 80-100 [facility] Comment on above: Performed By: #### C BCA, CMP, , 2776-04 ####[facility] ([id number])[address] [address] Monocytes (Bld) [#/Vol] 0.3 10*3/uL Normal 0-0.9 [facility] Comment on above: Performed By: #### Darlene BCA, CMP, , 2776-04 ####[facility] ([id number])[address] [address] [address] Monocytes/100 WBC (Bld) 7.0 % Normal [facility] Comment on above: Performed By: #### C BCA, CMP, , 2776-04 ####[facility] ([id number])[address], [place] [address] Neutrophils/100 WBC (Bld) 68.7 % Normal [facility] Comment on above: Performed By: #### C BCA, CMP, , 2776-04 ####[facility] ([id number])[address], [address], [place] [address] Platelet mean volume (Bld) [Entitic vol] 7.2 fL Normal 7-12 [facility] Comment on above: Performed By: #### C BCA, CMP, , 2776-04 ####[facility] ([id number])[address] [address] [place] [address] Platelets (Bld) [#/Vol] 134 10*3/uL Low 150-450 [facility] Comment on above: Performed By: #### Darlene BCA, CMP, , 2776-04 ####[facility] ([id number])[address] [address], [place] [address] RBC COUNT 2.71 X10E12/L Low 3.80-5.20 [facility] Comment on above: Performed By: #### C BCA, CMP, , 2776-04 ####[facility] ([id number])[address] [address] [place] [address] WBC (Bld) [#/Vol] 4.0 10*3/uL Normal 4.0-11.0 [facility] Comment on above: Performed By: #### C BCA, CMP, , 2776-04 ####[facility] ([id number])[address], [place] [address] COMPREHENSIVE METABOLIC PANE Anibal 12-21-2023 Albumin [Mass/Vol] 2.9 g/dL Low 3.2-5.3 [facility] Comment on above: Performed By: #### C BCA, CMP, , 2776- ####[facility] ([id number])[address], [place] [address] ALP [Catalytic activity/Vol] 163 U/L High 39-130 [facility] Comment on above: Performed By: #### C BCA, CMP, , 2776- ####[facility] ([id number])[address], [address], [place] [address] ALT [Catalytic activity/Vol] 7 U/L Normal 0-31 [facility] Comment on above: Performed By: #### C BCA, CMP, , 2776-04 ####[facility] ([id number])[address], [place] [address] Anion gap [Moles/Vol] 13 mmol/L Normal 5-15 [facility] Comment on above: Performed By: #### C BCA, CMP, , 2776- ####[facility] ([id number])[address], [place] [address] AST [Catalytic activity/Vol] 9 U/L Normal 0-41 [facility] Comment on above: Performed By: #### C BCA, CMP, , 2776- ####[facility] ([id number])[address], [place] [address] Bilirubin [Mass/Vol] 0.3 mg/dL Normal 0.3-1.2 [facility] Comment on above: Performed By: #### C BCA, CMP, , 2776- ####[facility] ([id number])[address], [place] [address] Calcium [Mass/Vol] 7.8 mg/dL Low 8.5-10.5 [facility] Comment on above: Performed By: #### C BCA, CMP, , 2776-04 ####[facility] ([id number])[address] [address] [place] [address] Chloride [Moles/Vol] 97 mmol/L Low 98-109 [facility] Comment on above: Performed By: #### C BCA, CMP, , 2776-04 ####[facility] ([id number])[address] [address] [place] [address] CO2 [Moles/Vol] 24 mmol/L Normal 22-32 [facility] Comment on above: Performed By: #### C BCA, CMP, , 2776-04 ####[facility] ([id number])[address] [address] [place] [address] Creatinine [Mass/Vol] 3.78 mg/dL High 0.40-1.00 [facility] Comment on above: Result Comment: METH OD TRACEABLE TO IDMS STANDARD Performed By: #### C BCA, CMP, , 2776-04 ####[facility] ([id number])[address] [address] GFR/1.73 sq M.predicted among non-blacks MDRD (S/P/Bld) [Vol rate/Area] 13 mL/min/{1.73_m2} Low >59 [facility] Comment on above: Result Comment: Repo rted eGFR is based on theCKD-EPI 2020 equation that doesnot use a race coefficient. Performed By: #### C BCA, CMP, , 2776-04 ####[facility] ([id number])[address], [place] [address] Glucose [Mass/Vol] 135 mg/dL High 65-99 [facility] Comment on above: Performed By: #### C BCA, [facility], , 2776-04 ####[facility] ([id number])[address], [place] [address] Potassium [Moles/Vol] 5.0 mmol/L Normal 3.5-5.0 [facility] Comment on above: Performed By: #### C BCA, CMP, , 2776-04 ####[facility] ([id number])[address], [place] [address] Protein [Mass/Vol] 5.7 g/dL Low 6.0-8.0 [facility] Comment on above: Performed By: #### C BCA, CMP, , 2776-04 ####[facility] ([id number])[address], [place] [address] Sodium [Moles/Vol] 134 mmol/L Normal 134-146 [facility] Comment on above: Performed By: #### C BCA, CMP, , 2776-04 ####[facility] ([id number])[address], [address], [place] [address] Urea nitrogen [Mass/Vol] 36 mg/dL High 5-23 [facility] Comment on above: Performed By: #### C BCA, CMP, , 2776-04 ####[facility] ([id number])[address], [place] [address] Calcium.ionized (Bld) [Mass/ Vol]on 12-21-2023 IONIZED CALCIUM 4.3 mg/dL Low 4.5-5.3 [facility] Comment on above: Performed By: #### 3 8230-9 ####[facility] ([id number])[address] [place] [address], [address] [place] [address] IONIZED CALCIUM 4.3 mg/dL Low 4.5-5.3 [facility] Comment on above: Performed By: #### 3 8230-9 ####[facility] ([id number])[address] [place] [address], [address] [place] [address] Glucose Glucometer (BldC) [M ass/Vol]on 12-21-2023 Glucose [Mass/Vol] 121 mg/dL High 65-99 [facility] Glucose [Mass/Vol] 129 mg/dL High 65-99 [facility] Glucose [Mass/Vol] 127 mg/dL High 65-99 [facility] Glucose [Mass/Vol] 77 mg/dL Normal 65-99 [facility] Glucose [Mass/Vol] 103 mg/dL High 65-99 [facility] MAGNESIUMon 12-21-2023 Magnesium [Mass/Vol] 1.9 mg/dL Normal 1.8-2.6 [facility] Comment on above: Performed By: #### C WALLACE CMP, 93122-9, 2777-1 ####[facility] ([id number])[address] [place] [address] [place] [address] PHOSPHORUSon 12-21-2023 Phosphate [Mass/Vol] 4.0 mg/dL Normal 2.4-4.9 [facility] Comment on above: Performed By: #### C BCA, CMP, 03864-1, 2777-1 ####[facility] ([id number])[address] [place] [address], [address] [place] [address] Surgical Pathologyon 024 Surgical Pathology Normal [facility] Comment on above: Result Comment: [facility] [address] [place] [id number] Surgical Pathology ConsultationPatient Name:MATTHEW NEALB:1965 (Age: 58)Gender:FTaken:12/21/2023eported:12/26/2023hysician(s):Wesley Kim M.D. ([phone])Copy To: Rec. 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 Report Electronically Signed Outst12/26/2023Delfina Whitlock MDInterpretation performed at [facility], [address] [place], [address], License number: [id number].Clinical HistoryAbnormal uterine bleeding.Gross DescriptionReceived in formalin labeled FÁTIMA, endometrial curettings are Telfa pads with martin delicate soft tissue fragments admixed with brown clotted hemorrhagic material, 2.5 x 1.2 x 0.1 cm in aggregate. The specimens are filtered and submitted in a single cassette. (1,ns,[id number], m8) TBb/12/22/2023SSISpecimen(s) Received Endometrial curettingsFee Codes(s):1; 20588 CBC AND AUTO DIFFon 12-20-19 24 ABSOLUTE BASOPHIL 0.1 X10E9/L Normal 0.0-0.2 [facility] Comment on above: Performed By: #### C BCA, CMP, 30357-4, 2777-1 ####[facility] ([id number])[address], [address], [place] [address] ABSOLUTE NEUTROPHIL 3.5 X10E9/L Normal 1.5-6.6 [facility] Comment on above: Performed By: #### C BCA, CMP, 33440-0, 2777-1 ####[facility] ([id number])[address], [address], [place] [address] Basophils/100 WBC (Bld) 2.2 % Normal [facility] Comment on above: Performed By: #### C WALLACE, CMP, , 2776-04 ####[facility] ([id number])[address] [address], [place] [address] Eosinophils (Bld) [#/Vol] 0.2 10*3/uL Normal 0.0-0.4 [facility] Comment on above: Performed By: #### C WALLACE, CMP, , 2776-04 ####[facility] ([id number])[address], [address], [place] [address] Eosinophils/100 WBC (Bld) 4.0 % Normal [facility] Comment on above: Performed By: #### C WALLACE, CMP, , 2776-04 ####[facility] ([id number])[address], [address], [place] [address] Erythrocyte distribution width (RBC) [Ratio] 19.4 % High 11.5-15.0 [facility] Comment on above: Performed By: #### Darlene GONSALEZ CMP, , 2776-04 ####[facility] ([id number])[address] [address], [place] [address] Hematocrit (Bld) [Volume fraction] 21.2 % Low 35-47 [facility] Comment on above: Performed By: #### C WALLACE, CMP, , 2776-04 ####[facility] ([id number])[address] [address] [place] [address] Hemoglobin (Bld) [Mass/Vol] 7.1 g/dL Low 11.7-15.5 [facility] Comment on above: Performed By: #### C WALLACE, CMP, , 2776-04 ####[facility] ([id number])[address], [address] [place] [address] Lymphocytes (Bld) [#/Vol] 0.8 10*3/uL Low 1.0-3.5 [facility] Comment on above: Performed By: #### C WALLACE CMP, , 2776-04 ####[facility] ([id number])[address], [address], [place] [address] Lymphocytes/100 WBC (Bld) 15.7 % Normal [facility] Comment on above: Performed By: #### C WALLACE, CMP, , 2776-04 ####[facility] ([id number])[address], [address] [place] [address] MCH (RBC) [Entitic mass] 31.7 pg Normal 27-34 [facility] Comment on above: Performed By: #### Darlene GONSALEZ CMP, , 2776-04 ####[facility] ([id number])[address], [address] [place] [address] MCHC (RBC) [Mass/Vol] 33.7 g/dL Normal 32-36 [facility] Comment on above: Performed By: #### C WALLACE, CMP, , 2776-04 ####[facility] ([id number])[address] [address] [place] [address] MCV (RBC) [Entitic vol] 94 fL Normal 80-100 [facility] Comment on above: Performed By: #### Darlene BCA, CMP, , 2776-04 ####[facility] ([id number])[address] [address], [place] [address] Monocytes (Bld) [#/Vol] 0.2 10*3/uL Normal 0-0.9 [facility] Comment on above: Performed By: #### C WALLACE, CMP, , 2776-04 ####[facility] ([id number])[address], [address] [place] [address] Monocytes/100 WBC (Bld) 5.2 % Normal [facility] Comment on above: Performed By: #### C WALLACE, CMP, , 2776-04 ####[facility] ([id number])[address], [address], [place] [address] Neutrophils/100 WBC (Bld) 72.9 % Normal [facility] Comment on above: Performed By: #### C BCA, CMP, , 2776-04 ####[facility] ([id number])[address], [address], [place] [address] Platelet mean volume (Bld) [Entitic vol] 7.3 fL Normal 7-12 [facility] Comment on above: Performed By: #### Darlene BCA, CMP, , 2776-04 ####[facility] ([id number])[address], [address] [place] [address] Platelets (Bld) [#/Vol] 131 10*3/uL Low 150-450 [facility] Comment on above: Performed By: #### Darlene BCA, CMP, , 2776-04 ####[facility] ([id number])[address], [address] [place] [address], [place] [address] RBC COUNT 2.26 X10E12/L Low 3.80-5.20 [facility] Comment on above: Performed By: #### C BCA, CMP, , 2776-04 ####[facility] ([id number])[address], [address] [place] [address] WBC (Bld) [#/Vol] 4.8 10*3/uL Normal 4.0-11.0 [facility] Comment on above: Performed By: #### C BCA, CMP, , 2776-04 ####[facility] ([id number])[address], [address], [place] [address] COMPREHENSIVE METABOLIC PANE Anibal 12-20-2023 Albumin [Mass/Vol] 2.7 g/dL Low 3.2-5.3 [facility] Comment on above: Performed By: #### C BCA, CMP, 92821-8, 2776- ####[facility] ([id number])[address], [address], [place] [address] ALP [Catalytic activity/Vol] 144 U/L High 39-130 [facility] Comment on above: Performed By: #### C BCA, CMP, , 2776- ####[facility] ([id number])[address], [address], [place] [address] ALT [Catalytic activity/Vol] 7 U/L Normal 0-31 [facility] Comment on above: Performed By: #### C BCA, CMP, , 2776- ####[facility] ([id number])[address], [address], [place] [address] Anion gap [Moles/Vol] 9 mmol/L Normal 5-15 [facility] Comment on above: Performed By: #### C BCA, CMP, , 2776- ####[facility] ([id number])[address], [address], [place] [address] AST [Catalytic activity/Vol] 8 U/L Normal 0-41 [facility] Comment on above: Performed By: #### C BCA, CMP, , 2776- ####[facility] ([id number])[address], [address], [place] [address] Bilirubin [Mass/Vol] 0.3 mg/dL Normal 0.3-1.2 [facility] Comment on above: Performed By: #### C BCA, CMP, , 2776- ####[facility] ([id number])[address], [address] [place] [address] Calcium [Mass/Vol] 7.3 mg/dL Low 8.5-10.5 [facility] Comment on above: Performed By: #### C BCA, CMP, , 2776-04 ####[facility] ([id number])[address] [address] [place] [address] Chloride [Moles/Vol] 97 mmol/L Low 98-109 [facility] Comment on above: Performed By: #### C BCA, CMP, , 2776-04 ####[facility] ([id number])[address] [address] [place] [address] CO2 [Moles/Vol] 26 mmol/L Normal 22-32 [facility] Comment on above: Performed By: #### C BCA, CMP, , 2776-04 ####[facility] ([id number])[address] [address], [place] [address] Creatinine [Mass/Vol] 2.98 mg/dL High 0.40-1.00 [facility] Comment on above: Result Comment: METH OD TRACEABLE TO IDMS STANDARD Performed By: #### C BCA, CMP, , 1 ####[facility] ([id number])[address] [address], [place] [address] GFR/1.73 sq M.predicted among non-blacks MDRD (S/P/Bld) [Vol rate/Area] 18 mL/min/{1.73_m2} Low >59 [facility] Comment on above: Result Comment: Repo rted eGFR is based on theCKD-EPI 2020 equation that doesnot use a race coefficient. Performed By: #### C BCA, CMP, , 2776-04 ####[facility] ([id number])[address] [address], [place] [address] Glucose [Mass/Vol] 124 mg/dL High 65-99 [facility] Comment on above: Performed By: #### C WALLACE, [facility], , 2776-04 ####[facility] ([id number])[address], [address], [place] [address] Potassium [Moles/Vol] 4.0 mmol/L Normal 3.5-5.0 [facility] Comment on above: Performed By: #### C WALLACE, [facility], , 2776-04 ####[facility] ([id number])[address] [place] [address] Protein [Mass/Vol] 5.0 g/dL Low 6.0-8.0 [facility] Comment on above: Performed By: #### C WALLACE CMP, , 2776-04 ####[facility] ([id number])[address], [address] [place] [address] Sodium [Moles/Vol] 132 mmol/L Low 134-146 [facility] Comment on above: Performed By: #### C WALLACE, CMP, , 2776-04 ####[facility] ([id number])[address], [address] [place] [address] Urea nitrogen [Mass/Vol] 30 mg/dL High 5-23 [facility] Comment on above: Performed By: #### C WALLACE, CMP, , 2776-04 ####[facility] ([id number])[address], [address] [place] [address] Glucose Glucometer (BldC) [M ass/Vol]on 12-20-2023 Glucose [Mass/Vol] 143 mg/dL High 65-99 [facility] Glucose [Mass/Vol] 146 mg/dL High 65-99 [facility] Glucose [Mass/Vol] 101 mg/dL High 65-99 [facility] Glucose [Mass/Vol] 116 mg/dL High 65-99 [facility] HGB AND HCTon 12-20-2023 Hematocrit (Bld) [Volume fraction] 22.4 % Low 35-47 [facility] Comment on above: Performed By: #### H H ####[facility] ([id number])[address], [address], [place] [address] Hemoglobin (Bld) [Mass/Vol] 7.4 g/dL Low 11.7-15.5 [facility] Comment on above: Performed By: #### H H ####[facility] ([id number])[address], [address] [place] [address] Hematocrit (Bld) [Volume fraction] 22.5 % Low 35-47 [facility] Comment on above: Performed By: #### H H ####[facility] ([id number])[address], [address], [place] [address] Hemoglobin (Bld) [Mass/Vol] 7.3 g/dL Low 11.7-15.5 [facility] Comment on above: Performed By: #### H H ####[facility] ([id number])[address], [address], [place] [address] MAGNESIUMon 12-20-2023 Magnesium [Mass/Vol] 1.8 mg/dL Normal 1.8-2.6 [facility] Comment on above: Performed By: #### C WALLACE CMP, , 2776- ####[facility] ([id number])[address], [address], [place] [address] PHOSPHORUSon 12-20-2023 Phosphate [Mass/Vol] 2.8 mg/dL Normal 2.4-4.9 [facility] Comment on above: Performed By: #### C BCA, CMP, , 2776- ####[facility] ([id number])[address], [address], [place] [address] CBC AND AUTO DIFFon 12-19-19 24 ABSOLUTE BASOPHIL 0.0 X10E9/L Normal 0.0-0.2 [facility] Comment on above: Performed By: #### C KERI, , 2776-04, CBCA ####[facility] ([id number])[address], [address] [place] [address] ABSOLUTE NEUTROPHIL 3.2 X10E9/L Normal 1.5-6.6 [facility] Comment on above: Performed By: #### C KERI, , 2776-04, CBCA ####[facility] ([id number])[address], [address] [place] [address] Basophils/100 WBC (Bld) 0.4 % Normal [facility] Comment on above: Performed By: #### C KERI, , 2776-04, CBCA ####[facility] ([id number])[address] [address] [place] [address] Eosinophils (Bld) [#/Vol] 0.2 10*3/uL Normal 0.0-0.4 [facility] Comment on above: Performed By: #### C KERI, , 2776-04, CBCA ####[facility] ([id number])[address] [address] [place] [address] Eosinophils/100 WBC (Bld) 4.9 % Normal [facility] Comment on above: Performed By: #### C KERI, , 2776-04, CBCA ####[facility] ([id number])[address], [address] [place] [address] Erythrocyte distribution width (RBC) [Ratio] 20.0 % High 11.5-15.0 [facility] Comment on above: Performed By: #### C KERI, , 2776-04, CBCA ####[facility] ([id number])[address], [address], [place] [address] Hematocrit (Bld) [Volume fraction] 22.7 % Low 35-47 [facility] Comment on above: Performed By: #### C KERI, , 2776-04, CBCA ####[facility] ([id number])[address], [address] [place] [address] Hemoglobin (Bld) [Mass/Vol] 7.4 g/dL Low 11.7-15.5 [facility] Comment on above: Performed By: #### C KERI, , 2776-04, CBCA ####[facility] ([id number])[address] [address] [place] [address] Lymphocytes (Bld) [#/Vol] 0.7 10*3/uL Low 1.0-3.5 [facility] Comment on above: Performed By: #### C KERI, , 2776-04, CBCA ####[facility] ([id number])[address] [address] Lymphocytes/100 WBC (Bld) 15.6 % Normal [facility] Comment on above: Performed By: #### C KERI, , 2776-04, CBCA ####[facility] ([id number])[address] [address] [place] [address] MCH (RBC) [Entitic mass] 31.7 pg Normal 27-34 [facility] Comment on above: Performed By: #### C KERI, , 2776-04, CBCA ####[facility] ([id number])[address], [address] [place] [address] MCHC (RBC) [Mass/Vol] 32.7 g/dL Normal 32-36 [facility] Comment on above: Performed By: #### C KERI, , 2776-04, CBCA ####[facility] ([id number])[address], [address] [place] [address] MCV (RBC) [Entitic vol] 97 fL Normal 80-100 [facility] Comment on above: Performed By: #### C KERI, , 2776-04, CBCA ####[facility] ([id number])[address], [address], [place] [address] Monocytes (Bld) [#/Vol] 0.3 10*3/uL Normal 0-0.9 [facility] Comment on above: Performed By: #### C KERI, , 2776-04, CBCA ####[facility] ([id number])[address], [address], [place] [address] Monocytes/100 WBC (Bld) 7.5 % Normal [facility] Comment on above: Performed By: #### C KERI, , 2776-04, CBCA ####[facility] ([id number])[address], [address], [place] [address] Neutrophils/100 WBC (Bld) 71.6 % Normal [facility] Comment on above: Performed By: #### C KERI, , 2776-04, CBCA ####[facility] ([id number])[address], [address] [place] [address] Platelet mean volume (Bld) [Entitic vol] 7.6 fL Normal 7-12 [facility] Comment on above: Performed By: #### C KERI, , 2776-04, CBCA ####[facility] ([id number])[address], [address] [place] [address] Platelets (Bld) [#/Vol] 138 10*3/uL Low 150-450 [facility] Comment on above: Performed By: #### C KERI, , 2776-, CBCA ####[facility] ([id number])[address], [address] [place] [address] RBC COUNT 2.35 X10E12/L Low 3.80-5.20 [facility] Comment on above: Performed By: #### C KERI, , 2776-04, CBCA ####[facility] ([id number])[address], [address] [place] [address] WBC (Bld) [#/Vol] 4.4 10*3/uL Normal 4.0-11.0 [facility] Comment on above: Performed By: #### C KERI, , 2776-04, CBCA ####[facility] ([id number])[address], [address] [place] [address] COMPREHENSIVE METABOLIC PANE [facility] 12-19-2023 Albumin [Mass/Vol] 2.9 g/dL Low 3.2-5.3 [facility] Comment on above: Performed By: #### C KERI, , 2776-04, CBCA ####[facility] ([id number])[address] [address] [place] [address] ALP [Catalytic activity/Vol] 164 U/L High 39-130 [facility] Comment on above: Performed By: #### C KERI, , 2776-04, CBCA ####[facility] ([id number])[address], [address] [place] [address] ALT [Catalytic activity/Vol] 9 U/L Normal 0-31 [facility] Comment on above: Performed By: #### C KERI, , 2776-, CBCA ####[facility] ([id number])[address], [address], [place] [address] Anion gap [Moles/Vol] 14 mmol/L Normal 5-15 [facility] Comment on above: Performed By: #### C KERI, , 2776-04, CBCA ####[facility] ([id number])[address], [address], [place] [address] AST [Catalytic activity/Vol] 10 U/L Normal 0-41 [facility] Comment on above: Performed By: #### C KERI, , 2776-04, CBCA ####[facility] ([id number])[address], [address], [place] [address] Bilirubin [Mass/Vol] 0.4 mg/dL Normal 0.3-1.2 [facility] Comment on above: Performed By: #### C KERI, , 2776-04, CBCA ####[facility] ([id number])[address], [address], [place] [address] Calcium [Mass/Vol] 7.5 mg/dL Low 8.5-10.5 [facility] Comment on above: Performed By: #### C KERI, , 2776-04, CBCA ####[facility] ([id number])[address], [place] [address] Chloride [Moles/Vol] 94 mmol/L Low 98-109 [facility] Comment on above: Performed By: #### C KERI, , 2776-04, CBCA ####[facility] ([id number])[address], [address], [place] [address] CO2 [Moles/Vol] 26 mmol/L Normal 22-32 [facility] Comment on above: Performed By: #### C KERI, , 2776-04, CBCA ####[facility] ([id number])[address] [address], [place] [address] Creatinine [Mass/Vol] 4.15 mg/dL High 0.40-1.00 [facility] Comment on above: Result Comment: METH OD TRACEABLE TO IDMS STANDARD Performed By: #### C KERI, , 2776-04, CBCA ####[facility] ([id number])[address] [address], [place] [address] GFR/1.73 sq M.predicted among non-blacks MDRD (S/P/Bld) [Vol rate/Area] 12 mL/min/{1.73_m2} Low >59 [facility] Comment on above: Result Comment: Repo rted eGFR is based on theCKD-EPI 2020 equation that doesnot use a race coefficient. Performed By: #### C KERI, , 2776-04, CBCA ####[facility] ([id number])[address] [address], [place] [address] Glucose [Mass/Vol] 111 mg/dL High 65-99 [facility] Comment on above: Performed By: #### C KERI, , 2776-04, CBCA ####[facility] ([id number])[address] [address], [place] [address] Potassium [Moles/Vol] 4.7 mmol/L Normal 3.5-5.0 [facility] Comment on above: Performed By: #### C KERI, , 2776-04, CBCA ####[facility] ([id number])[address] [address], [place] [address] Protein [Mass/Vol] 5.4 g/dL Low 6.0-8.0 [facility] Comment on above: Performed By: #### C KERI, , 2776-04, CBCA ####[facility] ([id number])[address] [address] [place] [address] Sodium [Moles/Vol] 134 mmol/L Normal 134-146 [facility] Comment on above: Performed By: #### Darlene SAAVEDRA, 94602-1, 2777-1, CBCA ####[facility] ([id number])[address], [address] [place] [address] Urea nitrogen [Mass/Vol] 53 mg/dL High 5-23 [facility] Comment on above: Performed By: #### C KERI, 97593-6, 277-, CBCA ####[facility] ([id number])[address] [address] Glucose Glucometer (BldC) [M ass/Vol]on 12-19-2023 Glucose [Mass/Vol] 102 mg/dL High 65-99 [facility] Glucose [Mass/Vol] 94 mg/dL Normal 65-99 [facility] Glucose [Mass/Vol] 113 mg/dL High 65-99 [facility] Glucose [Mass/Vol] 114 mg/dL High 65-99 [facility] HBV surface Ab IA Qnon 12-18 Anti HBs quant. <8.00 Normal [facility] Comment on above: Result Comment: Vacc inated: >=12mIU/mL, Positive (Immune)Unvaccinated: <8mIU/mL, Negative (Not Immune)8-11.99 mIU/mL: Indeterminate,(Considered Not Immune) Performed By: #### 5 193-8, 5196-1 ####[facility] ([id number])[address] [address] HBV surface Ag IA Qlon 12-18 HEPATITIS B SURF AG Negative Normal NEG [facility] Comment on above: Performed By: #### 5 193-8, 5196-1 ####[facility] ([id number])[address], [address] [place] [address] HGB AND HCTon 12-19-2023 Hematocrit (Bld) [Volume fraction] 25.1 % Low 35-47 [facility] Comment on above: Performed By: #### H H ####[facility] ([id number])[address], [place] [address] Hemoglobin (Bld) [Mass/Vol] 8.5 g/dL Low 11.7-15.5 [facility] Comment on above: Performed By: #### H H ####[facility] ([id number])[address], [address], [place] [address] Hematocrit (Bld) [Volume fraction] 20.2 % Low 35-47 [facility] Comment on above: Performed By: #### H H ####[facility] ([id number])[address], [address], [place] [address] Hemoglobin (Bld) [Mass/Vol] 6.7 g/dL Critically low 11.7-15.5 [facility] Comment on above: Performed By: #### H H ####[facility] ([id number])[address], [address], [place] [address] Hematocrit (Bld) [Volume fraction] 20.0 % Low 35-47 [facility] Comment on above: Performed By: #### H H ####[facility] ([id number])[address] [address], [place] [address] Hemoglobin (Bld) [Mass/Vol] 6.5 g/dL Critically low 11.7-15.5 [facility] Comment on above: Performed By: #### H H ####[facility] ([id number])[address], [address], [place] [address] MAGNESIUMon 12-19-2023 Magnesium [Mass/Vol] 2.1 mg/dL Normal 1.8-2.6 [facility] Comment on above: Performed By: #### C MP, , 2776-04, CBCA ####[facility] ([id number])[address], [address], [place] [address] PHOSPHORUSon 12-19-2023 Phosphate [Mass/Vol] 3.6 mg/dL Normal 2.4-4.9 [facility] Comment on above: Performed By: #### C MP, , 2776-04, CBCA ####[facility] ([id number])[address], [address] [place] [address] CBC AND AUTO DIFFon 12-18-19 ABSOLUTE BASOPHIL 0.0 X10E9/L Normal 0.0-0.2 [facility] Comment on above: Performed By: #### C WALLACE, CMP, , 2776-04 ####[facility] ([id number])[address] [address] [place] [address] ABSOLUTE NEUTROPHIL 3.9 X10E9/L Normal 1.5-6.6 [facility] Comment on above: Performed By: #### C BCA, CMP, , 2776-04 ####[facility] ([id number])[address] [address] [place] [address] Basophils/100 WBC (Bld) 0.8 % Normal [facility] Comment on above: Performed By: #### C BCA, CMP, , 2776-04 ####[facility] ([id number])[address] [address] [place] [address] Eosinophils (Bld) [#/Vol] 0.0 10*3/uL Normal 0.0-0.4 [facility] Comment on above: Performed By: #### C BCA, CMP, , 2776-04 ####[facility] ([id number])[address] [address] [place] [address] Eosinophils/100 WBC (Bld) 0.7 % Normal [facility] Comment on above: Performed By: #### C WALLACE CMP, , 2776-04 ####[facility] ([id number])[address] [address], [place] [address] Erythrocyte distribution width (RBC) [Ratio] 20.5 % High 11.5-15.0 [facility] Comment on above: Performed By: #### C WALLACE CMP, , 2776-04 ####[facility] ([id number])[address] [address], [place] [address] Hematocrit (Bld) [Volume fraction] 22.6 % Low 35-47 [facility] Comment on above: Performed By: #### C WALLACE CMP, , 2776-04 ####[facility] ([id number])[address] [address], [place] [address] Hemoglobin (Bld) [Mass/Vol] 7.2 g/dL Low 11.7-15.5 [facility] Comment on above: Performed By: #### Darlene GONSALEZ CMP, , 2776-04 ####[facility] ([id number])[address] [address], [place] [address] Lymphocytes (Bld) [#/Vol] 0.6 10*3/uL Low 1.0-3.5 [facility] Comment on above: Performed By: #### C BCA, CMP, , 2776-04 ####[facility] ([id number])[address] [address], [place] [address] Lymphocytes/100 WBC (Bld) 12.6 % Normal [facility] Comment on above: Performed By: #### Darlene GONSALEZ, CMP, , 2776-04 ####[facility] ([id number])[address] [address], [place] [address] MCH (RBC) [Entitic mass] 31.0 pg Normal 27-34 [facility] Comment on above: Performed By: #### C WALLACE, CMP, , 2776-04 ####[facility] ([id number])[address], [address], [place] [address] MCHC (RBC) [Mass/Vol] 32.0 g/dL Normal 32-36 [facility] Comment on above: Performed By: #### C BCA, CMP, , 2776-04 ####[facility] ([id number])[address], [address], [place] [address] MCV (RBC) [Entitic vol] 97 fL Normal 80-100 [facility] Comment on above: Performed By: #### C BCA, CMP, , 2776-04 ####[facility] ([id number])[address] [address] [place] [address] Monocytes (Bld) [#/Vol] 0.4 10*3/uL Normal 0-0.9 [facility] Comment on above: Performed By: #### C BCA, CMP, , 2776-04 ####[facility] ([id number])[address] [address], [place] [address] Monocytes/100 WBC (Bld) 7.6 % Normal [facility] Comment on above: Performed By: #### C BCA, CMP, , 2776-04 ####[facility] ([id number])[address] [address], [place] [address] Neutrophils/100 WBC (Bld) 78.3 % Normal [facility] Comment on above: Performed By: #### C BCA, CMP, , 2776-04 ####[facility] ([id number])[address] [address] [place] [address] Platelet mean volume (Bld) [Entitic vol] 7.5 fL Normal 7-12 [facility] Comment on above: Performed By: #### C BCA, CMP, , 2776-04 ####[facility] ([id number])[address], [address], [place] [address] Platelets (Bld) [#/Vol] 132 10*3/uL Low 150-450 [facility] Comment on above: Performed By: #### C BCA, CMP, , 2776-04 ####[facility] ([id number])[address], [address], [place] [address] RBC COUNT 2.33 X10E12/L Low 3.80-5.20 [facility] Comment on above: Performed By: #### C BCA, CMP, , 2776-04 ####[facility] ([id number])[address], [address] [place] [address] WBC (Bld) [#/Vol] 5.0 10*3/uL Normal 4.0-11.0 [facility] Comment on above: Performed By: #### C BCA, CMP, , 2776-04 ####[facility] ([id number])[address], [address], [place] [address] COMPREHENSIVE METABOLIC PANE Anibal 12-18-2023 Albumin [Mass/Vol] 2.8 g/dL Low 3.2-5.3 [facility] Comment on above: Performed By: #### C BCA, CMP, , 2776- ####[facility] ([id number])[address], [address] [place] [address] ALP [Catalytic activity/Vol] 161 U/L High 39-130 [facility] Comment on above: Performed By: #### C BCA, CMP, , 2776- ####[facility] ([id number])[address], [address], [place] [address] ALT [Catalytic activity/Vol] 8 U/L Normal 0-31 [facility] Comment on above: Performed By: #### C BCA, CMP, , 2776-04 ####[facility] ([id number])[address], [address], [place] [address] Anion gap [Moles/Vol] 11 mmol/L Normal 5-15 [facility] Comment on above: Performed By: #### C BCA, CMP, , 2776-04 ####[facility] ([id number])[address], [address], [place] [address] AST [Catalytic activity/Vol] 10 U/L Normal 0-41 [facility] Comment on above: Performed By: #### C BCA, CMP, , 2776-04 ####[facility] ([id number])[address], [address], [place] [address] Bilirubin [Mass/Vol] 0.4 mg/dL Normal 0.3-1.2 [facility] Comment on above: Performed By: #### C BCA, CMP, , 2776-04 ####[facility] ([id number])[address], [address], [place] [address] Calcium [Mass/Vol] 8.0 mg/dL Low 8.5-10.5 [facility] Comment on above: Performed By: #### C BCA, CMP, , 2776-04 ####[facility] ([id number])[address], [address], [place] [address] Chloride [Moles/Vol] 96 mmol/L Low 98-109 [facility] Comment on above: Performed By: #### C BCA, CMP, , 2776-04 ####[facility] ([id number])[address] [address] [place] [address] CO2 [Moles/Vol] 30 mmol/L Normal 22-32 [facility] Comment on above: Performed By: #### C POLI GONSALEZ, , 2776-04 ####[facility] ([id number])[address], [address] [place] [address] Creatinine [Mass/Vol] 3.62 mg/dL High 0.40-1.00 [facility] Comment on above: Result Comment: METH OD TRACEABLE TO IDMS STANDARD Performed By: #### C POLI GONSALEZ, , 2776-04 ####[facility] ([id number])[address] [address], [place] [address] GFR/1.73 sq M.predicted among non-blacks MDRD (S/P/Bld) [Vol rate/Area] 14 mL/min/{1.73_m2} Low >59 [facility] Comment on above: Result Comment: Repo rted eGFR is based on theCKD-EPI 2020 equation that doesnot use a race coefficient. Performed By: #### C POLI GONSALEZ, , 2776-04 ####[facility] ([id number])[address] [address], [place] [address] Glucose [Mass/Vol] 114 mg/dL High 65-99 [facility] Comment on above: Performed By: #### C POLI GONSALEZ, , 2776-04 ####[facility] ([id number])[address] [address] [place] [address] Potassium [Moles/Vol] 4.4 mmol/L Normal 3.5-5.0 [facility] Comment on above: Performed By: #### C WALLACE CMP, , 2776-04 ####[facility] ([id number])[address], [place] [address] Protein [Mass/Vol] 5.4 g/dL Low 6.0-8.0 [facility] Comment on above: Performed By: #### C BCA, [facility], , 2771 ####[facility] ([id number])[address] [address] Sodium [Moles/Vol] 137 mmol/L Normal 134-146 [facility] Comment on above: Performed By: #### C BCA, CMP, , 2776-04 ####[facility] ([id number])[address] [address] Urea nitrogen [Mass/Vol] 39 mg/dL High 5-23 [facility] Comment on above: Performed By: #### C BCA, CMP, , 2771 ####[facility] ([id number])[address] [address] Cancer Ag 125 Qnon CA 125 25 U/mL Normal 0-35 [facility] Comment on above: Result Comment: The method used for this test is [employer] DXI chemiluminescent immunoassay.Values obtained by different assay methodscannot be used interchangeably. Performed By: #### 1 0334-1, 9 ####[facility] ([id number])[address] [address] Carcinoembryonic Ag [Mass/Vo l]on 12-18-2023 CEA 1.8 ng/mL Normal 0.0-3.0 [facility] Comment on above: Result Comment: 0.0- 3.0 ng/mL FOR NON SMOKERS0.0-5.0 ng/mL FOR SMOKERS The method used for this test is [employer] DXI chemiluminescent immunoassay.Values obtained by different assay methodscannot be used interchangeably. Performed By: #### 1 0334-1, 9-6 ####[facility] ([id number])[address], [place] [address] FL SWALLOW MOTILITY FUNCTION on 12-18-2023 FL SWALLOW MOTILITY FUNCTION Normal [facility] Glucose Glucometer (BldC) [M ass/Vol]on 12-18-2023 Glucose [Mass/Vol] 135 mg/dL High 65-99 [facility] Glucose [Mass/Vol] 110 mg/dL High 65-99 [facility] Glucose [Mass/Vol] 114 mg/dL High 65-99 [facility] HGB AND HCTon 12-18-2023 Hematocrit (Bld) [Volume fraction] 22.9 % Low 35-47 [facility] Comment on above: Performed By: #### H H ####[facility] ([id number])[address] [address] [place] [address] Hemoglobin (Bld) [Mass/Vol] 7.4 g/dL Low 11.7-15.5 [facility] Comment on above: Performed By: #### H H ####[facility] ([id number])[address] [address] [place] [address], [place] [address] Hematocrit (Bld) [Volume fraction] 22.3 % Low 35-47 [facility] Comment on above: Performed By: #### H H ####[facility] ([id number])[address] [address] [place] [address] Hemoglobin (Bld) [Mass/Vol] 7.3 g/dL Low 11.7-15.5 [facility] Comment on above: Performed By: #### H H ####[facility] ([id number])[address] [address], [place] [address] Human epididymis protein 4 [ Moles/Vol]on 12-18-2023 HE4, S 1034 pmol/L High <=140 [facility] Comment on above: Result Comment: NOTE ADDITIONAL INFORMATION The testing method is an electrochemiluminescenceassay manufactured by [employer] andperformed on the Modular or Elliot system.Values obtained with different assay methods or kitsmay be different and cannot be used interchangeably.Test results cannot be interpreted as absolute evidencefor the presence or absence of malignant disease.Test Performed by:[facility] [place] [address]Rmd Director: Alfa Daley Ph.D.; CLIA# [id number] Performed By: #### 1 0334-1, 2038-09 ####[facility] ([id number])[address] [address] MAGNESIUMon 12-18-2023 Magnesium [Mass/Vol] 2.2 mg/dL Normal 1.8-2.6 [facility] Comment on above: Performed By: #### C POLI GONSALEZ, 68581-5, 2777-1 ####[facility] ([id number])[address] [address] Magnesium Ionized ISE (Bld) [Moles/Vol]on 12-18-2023 Magnesium [Moles/Vol] 0.66 mmol/L Normal 0.45-0.74 [facility] Comment on above: Result Comment: NEW REFERENCE RANGE Performed By: #### 7 3572-0 ####[facility] ([id number])[address] [address] PHOSPHORUSon 12-18-2023 Phosphate [Mass/Vol] 3.5 mg/dL Normal 2.4-4.9 [facility] Comment on above: Performed By: #### C WALLACE CMP, 37509-5, 2777-1 ####[facility] ([id number])[address] [facility], [place] [address] VENOUS BLOOD GASon 4 TRIXIE'S TEST Normal [facility] Comment on above: Performed By: #### V BG ####[facility] ([id number])[address] [place] [address] Base excess Calc (Bld) [Moles/Vol] 6.0 mmol/L High 0.0-2.0 [facility] Comment on above: Performed By: #### V BG ####[facility] ([id number])[address] [place] [address] Body temperature 98.6 [degF] Normal 37.0 [facility] Comment on above: Performed By: #### V BG ####[facility] ([id number])[address] [place] [address] HCO3 (Bld) [Moles/Vol] 30.0 mmol/L High 20.0-24.0 [facility] Comment on above: Performed By: #### V BG ####[facility] ([id number])[address] [place] [address] INSP. O2 CONC. 40 % Normal [facility] Comment on above: Performed By: #### V BG ####[facility] ([id number])[address] [place] [address] Oxygen saturation in Blood 88.0 % Normal >80.0 [facility] Comment on above: Performed By: #### V BG ####[facility] ([id number])[address] [place] [address] OXYGEN SOURCE Vent Normal [facility] Comment on above: Performed By: #### V BG ####[facility] ([id number])[address] [place] [address] PCO2, VENOUS 42.1 MMHG Normal 35-50 [facility] Comment on above: Performed By: #### V BG ####[facility] ([id number])[address] [place] [address] PH, VENOUS 7.461 High 7.320-7.420 [facility] Comment on above: Performed By: #### V BG ####[facility] ([id number])[address] [place] [address] PO2, VENOUS 51 MMHG High 30-50 [facility] Comment on above: Performed By: #### V BG ####[facility] ([id number])[address] [place] [address] SAMPLE SITE N/A Normal [facility] Comment on above: Performed By: #### V BG ####[facility] ([id number])[address] [place] [address] SAMPLE TYPE VENOUS Normal [facility] Comment on above: Performed By: #### V BG ####[facility] ([id number])[address] [place] [address] BLOOD CULTUREon 12-17-2023 Bacteria identified Aer cx Nom (Bld) CULTURE RESULTS NO GROWTH 5 DAYS Normal [facility] Bacteria identified Aer cx Nom (Bld) CULTURE RESULTS NO GROWTH 5 DAYS Normal [facility] CBC AND AUTO DIFFon 12-17-19 24 ABSOLUTE BASOPHIL 0.0 X10E9/L Normal 0.0-0.2 [facility] Comment on above: Performed By: #### C BCA, 4679-7, 39562-6, CMP, FEPR, 2532-0, 59822-9, 2777-1, THYR, PINR, 2276-4, 2284-8, 2132-9 ####[facility] ([id number])[address] [facility], [address] [place] [address], [place] [address] ABSOLUTE NEUTROPHIL 5.6 X10E9/L Normal 1.5-6.6 [facility] Comment on above: Performed By: #### C BCA, 4679-7, 50864-8, CMP, FEPR, 2532-0, 47809-6, 2777-1, THYR, PINR, 2276-4, 4-8, 2131-12 ####[facility] ([id number])[address], [place] [address] Basophils/100 WBC (Bld) 0.2 % Normal [facility] Comment on above: Performed By: #### C BCA, 4679-7, 02752-3, CMP, FEPR, 2532-0, 79280-6, 2777-1, THYR, PINR, 2276-4, 4-8, 2131-12 ####[facility] ([id number])[address], [place] [address] Eosinophils (Bld) [#/Vol] 0.0 10*3/uL Normal 0.0-0.4 [facility] Comment on above: Performed By: #### C BCA, 4679-7, 44668-9, CMP, FEPR, 2532-0, 15676-7, 2776-1, THYR, PINR, 6-4, 2283-8, 2131-12 ####[facility] ([id number])[address], [place] [address] Eosinophils/100 WBC (Bld) 0.2 % Normal [facility] Comment on above: Performed By: #### C BCA, 4679-7, 71250-4, CMP, FEPR, 2532-0, 50139-0, 7-1, THYR, PINR, 6-4, 4-8, 2131-12 ####[facility] ([id number])[address], [place] [address] Erythrocyte distribution width (RBC) [Ratio] 20.1 % High 11.5-15.0 [facility] Comment on above: Performed By: #### C BCA, 4679-7, 24447-6, CMP, FEPR, 2532-0, 79030-9, 2777-1, THYR, PINR, 2276-4, 2284-8, 2131-12 ####[facility] ([id number])[address], [place] [address] Hematocrit (Bld) [Volume fraction] 23.2 % Low 35-47 [facility] Comment on above: Performed By: #### C BCA, 4679-7, 09470-9, CMP, FEPR, 2532-0, 81192-3, 2777-1, THYR, PINR, 2276-4, 4-8, 2131-12 ####[facility] ([id number])[address], [place] [address] Hemoglobin (Bld) [Mass/Vol] 7.5 g/dL Low 11.7-15.5 [facility] Comment on above: Performed By: #### C BCA, 4679-7, 15450-4, CMP, FEPR, 2532-0, 69518-0, 7-1, THYR, PINR, 2276-4, 2283-8, 2131-12 ####[facility] ([id number])[address], [place] [address] Lymphocytes (Bld) [#/Vol] 0.3 10*3/uL Low 1.0-3.5 [facility] Comment on above: Performed By: #### C BCA, 4679-7, 74786-6, CMP, FEPR, 2532-0, 40750-1, 2777-1, THYR, PINR, 2276-4, 4-8, 2131-12 ####[facility] ([id number])[address], [place] [address] Lymphocytes/100 WBC (Bld) 4.8 % Normal [facility] Comment on above: Performed By: #### C BCA, 4679-7, 30392-6, CMP, FEPR, 2532-0, 38539-5, 2777-1, THYR, PINR, 2276-4, 2284-8, 2131-12 ####[facility] ([id number])[address], [place] [address] MCH (RBC) [Entitic mass] 31.5 pg Normal 27-34 [facility] Comment on above: Performed By: #### C BCA, 4679-7, 06922-0, CMP, FEPR, 2532-0, 17939-7, 2777-1, THYR, PINR, 2276-4, 4-8, 2131-12 ####[facility] ([id number])[address] [place] [address] MCHC (RBC) [Mass/Vol] 32.3 g/dL Normal 32-36 [facility] Comment on above: Performed By: #### C BCA, 4679-7, 59545-4, CMP, FEPR, 2532-0, 97161-4, 2777-1, THYR, PINR, 2276-4, 2283-8, 2131-12 ####[facility] ([id number])[address], [address] [place] [address] MCV (RBC) [Entitic vol] 97 fL Normal 80-100 [facility] Comment on above: Performed By: #### C BCA, 4679-7, 63963-6, CMP, FEPR, 2532-0, 02818-3, 2777-1, THYR, PINR, 2276-4, 4-8, 2131-12 ####[facility] ([id number])[address] [place] [address] Monocytes (Bld) [#/Vol] 0.1 10*3/uL Normal 0-0.9 [facility] Comment on above: Performed By: #### C BCA, 4679-7, 97132-9, CMP, FEPR, 2532-0, 85895-9, 2777-1, THYR, PINR, 2276-4, 2284-8, 2131-12 ####[facility] ([id number])[address], [address] [place] [address] Monocytes/100 WBC (Bld) 1.8 % Normal [facility] Comment on above: Performed By: #### C BCA, 4679-7, 24761-4, CMP, FEPR, 2532-0, 71825-2, 2777-1, THYR, PINR, 2276-4, 2284-8, 2131-12 ####[facility] ([id number])[address], [address] [place] [address] Neutrophils/100 WBC (Bld) 93.0 % Normal [facility] Comment on above: Performed By: #### C BCA, 4679-7, 62745-2, CMP, FEPR, 2532-0, 56376-4, 2777-1, THYR, PINR, 2276-4, 2284-8, 2131-12 ####[facility] ([id number])[address], [address] [place] [address] Platelet mean volume (Bld) [Entitic vol] 7.6 fL Normal 7-12 [facility] Comment on above: Performed By: #### C BCA, 4679-7, 27420-7, CMP, FEPR, 2532-0, 30942-9, 2777-1, THYR, PINR, 2276-4, 2284-8, 2131-12 ####[facility] ([id number])[address], [address] [place] [address] Platelets (Bld) [#/Vol] 139 10*3/uL Low 150-450 [facility] Comment on above: Performed By: #### C BCA, 4679-7, 87148-1, CMP, FEPR, 2532-0, 49117-6, 2777-1, THYR, PINR, 2276-4, 2284-8, 2131-12 ####[facility] ([id number])[address] [facility], [place] [address] RBC COUNT 2.38 X10E12/L Low 3.80-5.20 [facility] Comment on above: Performed By: #### C BCA, 4679-7, 76020-0, CMP, FEPR, 2532-0, 43765-1, 2777-1, THYR, PINR, 2276-4, 2284-8, 2131-12 ####[facility] ([id number])2130 [facility], [address] [place] [address] WBC (Bld) [#/Vol] 6.0 10*3/uL Normal 4.0-11.0 [facility] Comment on above: Performed By: #### C BCA, 4679-7, 23012-7, CMP, FEPR, 2532-0, 14967-4, 2777-1, THYR, PINR, 2276-4, 4-8, 2131-12 ####[facility] ([id number])[address] [facility], [address], [place] [address] COMPREHENSIVE METABOLIC PANE Anibal 12-17-2023 Albumin [Mass/Vol] 3.1 g/dL Low 3.2-5.3 [facility] Comment on above: Performed By: #### C BCA, 4679-7, 73551-0, CMP, FEPR, 2532-0, 49059-6, 2777-1, THYR, PINR, 2276-4, 2284-8, 2131-12 ####[facility] ([id number])[address] [facility], [address], [place] [address] ALP [Catalytic activity/Vol] 173 U/L High 39-130 [facility] Comment on above: Performed By: #### C BCA, 4679-7, 04541-0, CMP, FEPR, 2532-0, 82831-9, 2777-1, THYR, PINR, 2276-4, 2284-8, 2131-12 ####[facility] ([id number])[address], [address], [place] [address] ALT [Catalytic activity/Vol] 8 U/L Normal 0-31 [facility] Comment on above: Performed By: #### C BCA, 4679-7, 49068-1, CMP, FEPR, 2532-0, 33633-3, 2777-1, THYR, PINR, 2276-4, 2284-8, 2131-12 ####[facility] ([id number])[address] [facility], [address], [place] [address] Anion gap [Moles/Vol] 11 mmol/L Normal 5-15 [facility] Comment on above: Performed By: #### C BCA, 4679-7, 94597-4, CMP, FEPR, 2532-0, 75617-9, 2777-1, THYR, PINR, 2276-4, 2284-8, 2131-12 ####[facility] ([id number])[address] [facility], [address] [place] [address] AST [Catalytic activity/Vol] 10 U/L Normal 0-41 [facility] Comment on above: Performed By: #### C BCA, 4679-7, 91048-0, CMP, FEPR, 2532-0, 35354-9, 2777-1, THYR, PINR, 2276-4, 2284-8, 2131-12 ####[facility] ([id number])[address], [address], [place] [address] Bilirubin [Mass/Vol] 0.4 mg/dL Normal 0.3-1.2 [facility] Comment on above: Performed By: #### C BCA, 4679-7, 58743-8, CMP, FEPR, 2532-0, 92009-6, 2777-1, THYR, PINR, 2276-4, 2284-8, 2131-12 ####[facility] ([id number])[address], [address] [place] [address] Calcium [Mass/Vol] 8.1 mg/dL Low 8.5-10.5 [facility] Comment on above: Performed By: #### C BCA, 4679-7, 61755-5, CMP, FEPR, 2532-0, 63698-1, 2777-1, THYR, PINR, 2276-4, 2284-8, 2131-12 ####[facility] ([id number])[address], [address], [place] [address] Chloride [Moles/Vol] 95 mmol/L Low 98-109 [facility] Comment on above: Performed By: #### C BCA, 4679-7, 98202-3, CMP, FEPR, 2532-0, 40747-7, 2777-1, THYR, PINR, 2276-4, 2284-8, 2131-12 ####[facility] ([id number])[address], [address], [place] [address] CO2 [Moles/Vol] 29 mmol/L Normal 22-32 [facility] Comment on above: Performed By: #### C BCA, 4679-7, 50502-3, CMP, FEPR, 2532-0, 51211-2, 2777-1, THYR, PINR, 2276-4, 2284-8, 2131-12 ####[facility] ([id number])[address], [address] [place] [address] Creatinine [Mass/Vol] 3.10 mg/dL High 0.40-1.00 [facility] Comment on above: Result Comment: METH OD TRACEABLE TO IDMS STANDARD Performed By: #### C BCA, 4679-7, 41765-2, CMP, FEPR, 2532-0, 13420-4, 2777-1, THYR, PINR, 2276-4, 2284-8, 2131-9 ####[facility] ([id number])[address] [address] GFR/1.73 sq M.predicted among non-blacks MDRD (S/P/Bld) [Vol rate/Area] 17 mL/min/{1.73_m2} Low >59 [facility] Comment on above: Result Comment: Repo rted eGFR is based on theCKD-EPI 2020 equation that doesnot use a race coefficient. Performed By: #### C BCA, 4679-7, 71822-8, CMP, FEPR, 2532-0, 57013-6, 7-1, THYR, PINR, 2276-4, 2284-8, 2131-12 ####[facility] ([id number])[address] [address] Glucose [Mass/Vol] 151 mg/dL High 65-99 [facility] Comment on above: Performed By: #### C BCA, 4679-7, 00409-6, CMP, FEPR, 2532-0, 13455-7, 2777-1, THYR, PINR, 2276-4, 2284-8, 2131-12 ####[facility] ([id number])[address] [address] Potassium [Moles/Vol] 4.7 mmol/L Normal 3.5-5.0 [facility] Comment on above: Performed By: #### C BCA, 4679-7, 08454-9, CMP, FEPR, 2532-0, 03054-2, 2777-1, THYR, PINR, 2276-4, 2284-8, 9 ####[facility] ([id number])[address] [address] Protein [Mass/Vol] 5.7 g/dL Low 6.0-8.0 [facility] Comment on above: Performed By: #### C BCA, 4679-7, 40240-3, CMP, FEPR, 2532-0, 50280-3, 2777-1, THYR, PINR, 2276-4, 2284-8, 2132-9 ####[facility] ([id number])[address], [address] [place] [address] Sodium [Moles/Vol] 135 mmol/L Normal 134-146 [facility] Comment on above: Performed By: #### C BCA, 4679-7, 94145-1, CMP, FEPR, 2532-0, 64707-3, 2777-1, THYR, PINR, 2276-4, 2284-8, 2132-9 ####[facility] ([id number])[address], [address] [place] [address] Urea nitrogen [Mass/Vol] 32 mg/dL High 5-23 [facility] Comment on above: Performed By: #### C BCA, 4679-7, 11003-8, CMP, FEPR, 2532-0, 89245-2, 2777-1, THYR, PINR, 2276-4, 2284-8, 213-9 ####[facility] ([id number])[address], [address] [place] [address] CTA ABD AND PELVISon 09-[address] CTA ABD AND PELVIS CT CTA ABD AND PEL VIS CT CTA ABD AND PELVIS CLINICAL INDICATION: Lower GI bleed . COMPARISON STUDY: 11/07/2023. TECHNIQUE: CT of the abdomen and pelvis without contrast. CT angiogram of the abdomen and pelvis following IV contrast in the arterial phase . 100 mL of Omnipaque 350 injected intravenously without complications. 3D images were created on an independent workstation under radiologist supervision and interpreted. FINDINGS: VASCULAR/AORTA: Evaluation somewhat limited by poor bolus in the inferior abdominal aorta, as well as truncation and cropping artifact in the left hemiabdomen. Within this limitation, no CTA evidence of active extravasation in the visualized loops of bowel. Abdominal aorta: Patent. Mild atherosclerotic plaque burden. No significant stenosis. Celiac trunk:Patent. Mild atherosclerotic plaque burden. No significant stenosis. SMA:Patent. Mild atherosclerotic plaque burden. No significant stenosis. Renal arteries:Patent. Mild atherosclerotic plaque burden. No significant stenosis. JOON:Patent. Mild atherosclerotic plaque burden. No significant stenosis. Common iliac arteries:Patent. Mild atherosclerotic plaque burden. No significant stenosis. Internal iliac arteries:Patent. Mild atherosclerotic plaque burden. No significant stenosis. External iliac arteries:Patent. Mild atherosclerotic plaque burden. No significant stenosis. FINDINGS: NONVASCULAR FINDINGS: Evaluation of the solid and hollow abdominal viscera limited by arterial phase of contrast. LOWER THORAX: Left lower lobe airspace opacity with air bronchograms. HEPATOBILIARY: No focal aggressive appearing hepatic lesions. No biliary ductal dilatation. SPLEEN: Unremarkable. PANCREAS: No focal masses or ductal dilatation. ADRENALS: No adrenal nodules. KIDNEYS/URETERS: No aggressive appearing mass lesion. Right Bosniak 2 appearing cyst(s) not requiring further imaging follow-up. No obstructive renal calculus. No collecting system dilatation. GI TRACT: No acute bowel obstruction. PELVIC ORGANS/BLADDER: Distended endometrium. Similar appearance of a 8.4 cm left adnexal cystic lesion. LYMPH NODES: No enlarged lymph nodes. Prominent cisterna chyli. BONES AND SOFT TISSUES: No suspicious osseous lesion. Severe L4-L5 degeneration. ABDOMINAL WALL: Redemonstrated left oblique abdominal wall hernia repair with recurrent colon containing hernia, but no evidence of acute obstruction at this time. Moderate volume stool body wall edema IMPRESSION: 1. Evaluation limited by poor bolus in the inferior abdominal aorta, as well as truncation and cropping artifact in the left hemiabdomen. Within this limitation, no CTA evidence of active extravasation in the visualized loops of bowel. 2. Persistent left lower lobe airspace opacity, possibly chronic atelectasis. Air bronchograms present, infiltrate may be possible in the appropriate clinical context. 3. Distended endometrium, which may be abnormal depending on patient's menstrual status. Correlate clinically. 4. Similar appearance of a 8.4 cm left adnexal cystic lesion, which may increase patient's risk of torsion. 5. Redemonstrated left oblique abdominal wall hernia repair with recurrent colon containing hernia, but no evidence of acute obstruction at this time. All CT scans at this facility use dose modulation, iterative reconstruction, and/or weight based dosing when appropriate to reduce radiation dose to as low as reasonably achievable. Finalized by Kelvin Wallis on 12/17/2023 6:22 AM Normal [facility] Clinical Pathology Blood Sme ar Reviewon 12-17-2023 Clinical Pathology Blood Smear Review Normal [facility] Comment on above: Result Comment: [facility] [address] [place] [address] Clinical Pathology ReportPatient Name:MARYLUO NEAL:1965 (Age: 58)Gender:FTaken:12/17/2023eported:12/27/2023hysician(s):Toy Zambrano M.D. ([phone])Copy To: Rec. #:[id number]: #[id number] Pathologic DiagnosisPeripheral blood smear: Normochromic normocytic anemia with anisocytosis. Thrombocytopenia.Comment: The peripheral blood findings of normochromic normocytic anemia and thrombocytopenia with slight reticulocytosis and basophilic stippling of red blood cells can be seen in association with hemolysis or myelodysplasia. Additional clinical evaluation is suggested. Report Electronically Signed Outnxk/12/27/2023Osmany Fletcher MDInterpretation performed [place] [address], License number: [id number].Clinical WuyiuqzA28.92BLOOD SMEAR EVALUATIONCBC (12/17/2023 1252): WBC: 6.0 x 10E9/L. RBC: 2.38 x 10E12/L. Hgb: 7.5 g/dL. Platelets: 139 x 10E9/L. MCV: 97 fL. RDW: 20.1%.Automated differential: Neutrophils: 5.6 x 10E9/L. Lymphocytes: 0.3 x 10E9/L. Monocytes: 0.1 x 10E9/L. Eosinophils: 0.0 x 10E9/L. Basophils: 0.0 x 10E9/L.Other lab data: Reticulocyte count: 4.5%Blood smear:WBC: The white blood cells are unremarkable morphologically. There are no abnormal immature cells.RBC: The red blood cells vaguely from normochromic normocytic to normochromic and slightly macrocytic. There is no significant variation in cell shape. There are occasional red blood cells with basophilic stippling.Platelets: The platelets are decreased.Specimen(s) Received Blood Smear ReviewFee Codes(s):1; 15675 FERRITINon 12-17-2023 Ferritin [Mass/Vol] 587 ng/mL High 11-307 [facility] Comment on above: Performed By: #### C BCA, 4679-7, 78183-9, CMP, FEPR, 2532-0, 68044-3, 2777-1, THYR, PINR, 2276-4, 2284-8, 2131-12 ####[facility] ([id number])2130 [facility], [address] [place] [address] Folate [Mass/Vol]on 12-17-19 24 FOLIC ACID 6.6 ng/mL Normal >5.8 [facility] Comment on above: Result Comment: NEW REFERENCE RANGE Performed By: #### C BCA, 4679-7, 61463-6, CMP, FEPR, 2532-0, 18390-1, 2777-1, THYR, PINR, 2276-4, 2284-8, 2131-12 ####[facility] ([id number])2130 [facility], [address] [place] [address] Glucose Glucometer (BldC) [M ass/Vol]on 12-17-2023 Glucose [Mass/Vol] 138 mg/dL High 65-99 [facility] Glucose [Mass/Vol] 132 mg/dL High 65-99 [facility] Glucose [Mass/Vol] 158 mg/dL High 65-99 [facility] HGB A1C (GLYCO-HGB)on 2023 Glucose [Mass/Vol] 100 mg/dL Normal [facility] Comment on above: Performed By: #### H A1C, 70164-2 ####[facility] ([id number])[address], [address] [place] [address] HbA1c (Bld) [Mass fraction] 5.1 % Normal 4.4-5.6 [facility] Comment on above: Result Comment: NOTE ADA Guidelines Result HgbA1c Normal : less than 5.7 % Prediabetes : 5.7 % to 6.4 % Diabetes : > 6.4 %Use with caution in patients with abnormal hemoglobin variants asthe half-life of red blood cells and in vivo glycation rates areaffected. Performed By: #### H A1C, 23001-8 ####[facility] ([id number])[address], [address] [place] [address] HGB AND HCTon 12-17-2023 Hematocrit (Bld) [Volume fraction] 24.0 % Low 35-47 [facility] Comment on above: Performed By: #### H H ####[facility] ([id number])[address], [address] [place] [address] Hemoglobin (Bld) [Mass/Vol] 7.8 g/dL Low 11.7-15.5 [facility] Comment on above: Performed By: #### H H ####[facility] ([id number])[address], [address] [place] [address] Hematocrit (Bld) [Volume fraction] 21.5 % Low 35-47 [facility] Comment on above: Performed By: #### 2 157-6 #### [facility] ([id number]) [address] [place] [address], [place] [address] #### 67421-9 #### [facility] ([id number]) [address], [address] [place] [address] Hemoglobin (Bld) [Mass/Vol] 7.1 g/dL Low 11.7-15.5 [facility] Comment on above: Performed By: #### 2 157-6 #### [facility] ([id number]) [address] [place] [address] #### 08693-1 #### [facility] ([id number]) [address], [address] [place] [address] Hematocrit (Bld) [Volume fraction] 18.7 % Low 35-47 [facility] Comment on above: Performed By: #### 2 157-6 #### [facility] ([id number]) [address] [place] [address] #### 87775-2 #### [facility] ([id number]) [address], [address] [place] [address] Hemoglobin (Bld) [Mass/Vol] 6.1 g/dL Critically low 11.7-15.5 [facility] Comment on above: Performed By: #### 2 157-6 #### [facility] ([id number]) [address] [place] [address] #### 46359-7 #### [facility] ([id number]) [address], [address] [place] [address] IRON PROFILEon 12-17-2023 Iron [Mass/Vol] 24 ug/dL Low 50-170 [facility] Comment on above: Performed By: #### C BCA, 4679-7, 69863-1, CMP, FEPR, 2532-0, 92378-1, 2777-1, THYR, PINR, 2276-4, 2284-8, 2132-9 ####[facility] ([id number])[address] [facility], [address], [place] [address] IRON BINDING 234 ug/dL Low 250-425 [facility] Comment on above: Performed By: #### C BCA, 4679-7, 65213-4, CMP, FEPR, 2532-0, 94822-1, 2777-1, THYR, PINR, 2276-4, 2284-8, 2131-12 ####[facility] ([id number])[address], [address] [place] [address] IRON SATURATION 10 % SATURATION Low 15-50 [facility] Comment on above: Performed By: #### C BCA, 4679-7, 40330-9, CMP, FEPR, 2532-0, 01126-1, 2777-1, THYR, PINR, 2276-4, 2283-8, 2131-12 ####[facility] ([id number])[address], [address] [place] [address] LDH [Catalytic activity/Vol] on 12-17-2023 LDH 119 U/L Normal 100-235 [facility] Comment on above: Performed By: #### C BCA, 4679-7, 59242-5, CMP, FEPR, 2532-0, 54699-6, 7-1, THYR, PINR, 2276-4, 2283-8, 2131-12 ####[facility] ([id number])[address], [address] [place] [address] Lactate (P catherine) [Moles/Vol]o n 12-17-2023 LACTATE W/REFLEX 2.0 mmol/L Normal 0.4-2.0 [facility] Comment on above: Result Comment: Resu lt did not trigger repeat Lactate,re-order if needed. Performed By: #### C BCA, 4679-7, 70606-8, CMP, FEPR, 2532-0, 38486-0, 2777-1, THYR, PINR, 2276-4, 2284-8, 2131-12 ####[facility] ([id number])[address], [address] [place] [address] LACTATE W/REFLEX 1.7 mmol/L Normal 0.4-2.0 [facility] Comment on above: Result Comment: Result did not trigger repeat Lactate, re-order if needed. Performed By: #### 2 157-6 #### [facility] ([id number]) [address] [place] [address], [place] [address] #### 18431-7 #### [facility] ([id number]) [address], [address] [place] [address] MAGNESIUMon 12-17-2023 Magnesium [Mass/Vol] 1.6 mg/dL Low 1.8-2.6 [facility] Comment on above: Performed By: #### C BCA, 4679-7, 46324-8, CMP, FEPR, 2532-0, 21626-7, 2777-1, THYR, PINR, 2276-4, 2284-8, 2131-12 ####[facility] ([id number])[address], [address] [place] [address] Natriuretic peptide B [Mass/ Vol]on 12-17-2023 Natriuretic peptide B (Bld) [Mass/Vol] 378 pg/mL High <100.0 [facility] Comment on above: Performed By: #### H A1C, 50341-9 ####[facility] ([id number])[address], [address] [place] [address] PHOSPHORUSon 12-17-2023 Phosphate [Mass/Vol] 3.5 mg/dL Normal 2.4-4.9 [facility] Comment on above: Performed By: #### C BCA, 4679-7, 34952-5, CMP, FEPR, 2532-0, 80002-2, 2777-1, THYR, PINR, 2276-4, 2284-8, 2131-12 ####[facility] ([id number])[address], [address] [place] [address] PROTIME AND INRon 12-17-2023 INR Coag (PPP) [Relative time] 1.2 {INR} High 0.8-1.1 [facility] Comment on above: Performed By: #### C BCA, 4679-7, 82124-1, CMP, FEPR, 2532-0, 30505-3, 2777-1, THYR, PINR, 2276-4, 2284-8, 9 ####[facility] ([id number])[address] [facility], [address], [place] [address] PT Coag (PPP) [Time] 14.3 s High 9.8-13.2 [facility] Comment on above: Performed By: #### C BCA, 4679-7, 79898-8, CMP, FEPR, 2532-0, 54439-4, 2777-1, THYR, PINR, 2276-4, 2284-8, 2131-12 ####[facility] ([id number])[address] [facility], [address] [place] [address] [address] [address] comment (Bld) [Interp]on 12-17-2023 STAFF REVIEW NOTE Normal [facility] Comment on above: Result Comment: [facility] [address] [place] [address] Clinical Pathology ReportPatient Name:DEANDRE NEALB:1965 (Age:58)Gender:FTaken:4Reported:12/27/2023hysician(s):Linda Bond M.D. ([phone])Copy To: Rec.#:[id number]: #[id number] Pathologic DiagnosisPeripheral blood smear: Normochromic normocytic anemia with anisocytosis. Thrombocytopenia.Comment: The peripheral blood findings of normochromic normocyticanemia and thrombocytopenia with slight reticulocytosis andbasophilic stippling of red blood cells can be seen in associationwith hemolysis or myelodysplasia. Additional clinical evaluation issuggested. Report Electronically Signed Outnxk12/27/2023Osmany Fletcher MDInterpretation performed at [facility], [address] [place] [address], License number: [id number].Clinical SprgzhsG78.92BLOOD SMEAR EVALUATIONCBC (12/17/2023 1252): WBC: 6.0 x 10E9/L. RBC: 2.38 x 10E12/L. Hgb:7.5 g/dL. Platelets: 139 x 10E9/L. MCV: 97 fL. RDW: 20.1%.Automated differential: Neutrophils: 5.6 x 10E9/L. Lymphocytes:0.3 x 10E9/L. Monocytes: 0.1 x 10E9/L. Eosinophils: 0.0 x 10E9/L. Basophils: 0.0 x 10E9/L.Other lab data: Reticulocyte count: 4.5%Blood smear:WBC: The white blood cells are unremarkable morphologically. Thereare no abnormal immature cells.RBC: The red blood cells vaguely from normochromic normocytic tonormochromic and slightly macrocytic. There is no significantvariation in cell shape. There are occasional red blood cells withbasophilic stippling.Platelets: The platelets are decreased.Specimen(s) ReceivedBlood Smear ReviewFee Codes(s):1; 62255 Performed By: #### C BCA, 4679-7, 16383-9, CMP, FEPR, 2532-0, 62127-0, 2777-1, THYR, PINR, 2276-4, 2284-8, 2131-9 ####[facility] ([id number])[address] [place] [address], [address], [place] [address] Reticulocytes/100 RBC (Bld)o n 12-17-2023 RETICULOCYTE COUNT 4.5 % High 0.4-2.2 [facility] Comment on above: Performed By: #### C BCA, 4679-7, 10915-0, CMP, FEPR, 2532-0, 32751-6, 2777-1, THYR, PINR, 2276-4, 2284-8, 2131-12 ####[facility] ([id number])[address] [facility], [address], [place] [address] THYROID PROFILEon 12-17-2023 Free T4 [Mass/Vol] 0.58 ng/dL Low 0.61-1.60 [facility] Comment on above: Performed By: #### C BCA, 4679-7, 65565-2, CMP, FEPR, 2532-0, 72391-7, 2777-1, THYR, PINR, 2276-4, 2284-8, 2131-12 ####[facility] ([id number])2130 [facility], [address] [place] [address] TSH 3.78 uIU/mL Normal 0.49-4.67 [facility] Comment on above: Performed By: #### C BCA, 4679-7, 78065-0, CMP, FEPR, 2532-0, 43309-1, 7-1, THYR, PINR, 2276-4, 2284-8, 2131-12 ####[facility] ([id number])2[address] [facility], [address] [place] [address], [place] [address] VITAMIN B12on 12-17-2023 Cobalamin (Vitamin B12) [Mass/Vol] 471 pg/mL Normal 180-914 [facility] Comment on above: Performed By: #### C BCA, 4679-7, 73129-8, CMP, FEPR, 2532-0, 50140-0, 2777-1, THYR, PINR, 2276-4, 4-8, 2131-12 ####[facility] ([id number])2130 [facility], [address] [place] [address] XR CHEST 1 VWon 12-17-2023 XR CHEST 1 VW Normal [facility] CBC AND AUTO DIFFon 12-16-19 24 ABSOLUTE BASOPHIL 0.0 X10E9/L Normal 0.0-0.2 [facility] Comment on above: Performed By: #### 2 157-6, CBCA #### [facility] ([id number]) [address] [place] [address] ABSOLUTE NEUTROPHIL 4.6 X10E9/L Normal 1.5-6.6 [facility] Comment on above: Performed By: #### 2 157-6, CBCA #### [facility] ([id number]) [address] [place] [address] 41665 Basophils/100 WBC (Bld) 0.4 % Normal [facility] Comment on above: Performed By: #### 2 157-6, CBCA #### [facility] ([id number]) [address] [place] [address] Eosinophils (Bld) [#/Vol] 0.2 10*3/uL Normal 0.0-0.4 [facility] Comment on above: Performed By: #### 2 157-6, CBCA #### [facility] ([id number]) [address] [place] [address] 31370 Eosinophils/100 WBC (Bld) 3.8 % Normal [facility] Comment on above: Performed By: #### 2 157-6, CBCA #### [facility] ([id number]) [address] [place] [address] [address] Erythrocyte distribution width (RBC) [Ratio] 19.6 % High 11.5-15.0 [facility] Comment on above: Performed By: #### 2 157-6, CBCA #### [facility] ([id number]) [address] [place] [address] 62651 Hematocrit (Bld) [Volume fraction] 15.4 % Low 35-47 [facility] Comment on above: Performed By: #### 2 157-6, CBCA #### [facility] ([id number]) [address] [place] [address] 27855 Hemoglobin (Bld) [Mass/Vol] 5.0 g/dL Critically low 11.7-15.5 [facility] Comment on above: Performed By: #### 2 157-6, CBCA #### [facility] ([id number]) [address] [place] [address] 09863 Lymphocytes (Bld) [#/Vol] 0.5 10*3/uL Low 1.0-3.5 [facility] Comment on above: Performed By: #### 2 157-6, CBCA #### [facility] ([id number]) [address] [place] [address] 56698 Lymphocytes/100 WBC (Bld) 9.0 % Normal [facility] Comment on above: Performed By: #### 2 157-6, CBCA #### [facility] ([id number]) [address] [place] [address] 18859 MCH (RBC) [Entitic mass] 33.5 pg Normal 27-34 [facility] Comment on above: Performed By: #### 2 157-6, CBCA #### [facility] ([id number]) [address] [place] [address] 26168 MCHC (RBC) [Mass/Vol] 32.7 g/dL Normal 32-36 [facility] Comment on above: Performed By: #### 2 157-6, CBCA #### [facility] ([id number]) [address] [place] [address] 27044 MCV (RBC) [Entitic vol] 103 fL High 80-100 [facility] Comment on above: Performed By: #### 2 157-6, CBCA #### [facility] ([id number]) [address] [place] [address] 42898 Monocytes (Bld) [#/Vol] 0.2 10*3/uL Normal 0-0.9 [facility] Comment on above: Performed By: #### 2 157-6, CBCA #### [facility] ([id number]) [address] [place] [address] 27062 Monocytes/100 WBC (Bld) 4.2 % Normal [facility] Comment on above: Performed By: #### 2 157-6, CBCA #### [facility] ([id number]) [address] [place] [address], [place] [address] Neutrophils/100 WBC (Bld) 82.6 % Normal [facility] Comment on above: Performed By: #### 2 157-6, CBCA #### [facility] ([id number]) [address] [place] [address] 20472 Platelet mean volume (Bld) [Entitic vol] 7.8 fL Normal 7-12 [facility] Comment on above: Performed By: #### 2 157-6, CBCA #### [facility] ([id number]) [address] [place] [address] 16816 Platelets (Bld) [#/Vol] 149 10*3/uL Low 150-450 [facility] Comment on above: Performed By: #### 2 157-6, CBCA #### [facility] ([id number]) [address] [place] [address] [place] [address] RBC COUNT 1.51 X10E12/L Low 3.80-5.20 [facility] Comment on above: Performed By: #### 2 157-6, CBCA #### [facility] ([id number]) [address] [place] [address] 24257 WBC (Bld) [#/Vol] 5.6 10*3/uL Normal 4.0-11.0 [facility] Comment on above: Performed By: #### 2 157-6, CBCA #### [facility] ([id number]) [address] [place] [address] 78940 ABSOLUTE BASOPHIL 0.0 X10E9/L Normal 0.0-0.2 [facility] Comment on above: Performed By: #### 2 157-6, CBCA #### [facility] ([id number]) [address] [place] [address] 10217 ABSOLUTE NEUTROPHIL 5.7 X10E9/L Normal 1.5-6.6 [facility] Comment on above: Performed By: #### 2 157-6, CBCA #### [facility] ([id number]) [address] [place] [address] 37487 Basophils/100 WBC (Bld) 0.5 % Normal [facility] Comment on above: Performed By: #### 2 157-6, CBCA #### [facility] ([id number]) [address] [place] [address] 80344 Eosinophils (Bld) [#/Vol] 0.2 10*3/uL Normal 0.0-0.4 [facility] Comment on above: Performed By: #### 2 157-6, CBCA #### [facility] ([id number]) [address] [place] [address] 59412 Eosinophils/100 WBC (Bld) 3.7 % Normal [facility] Comment on above: Performed By: #### 2 157-6, CBCA #### [facility] ([id number]) [address] [place] [address] 70146 Erythrocyte distribution width (RBC) [Ratio] 19.9 % High 11.5-15.0 [facility] Comment on above: Performed By: #### 2 157-6, CBCA #### [facility] ([id number]) [address] [place] [address] 89612 Hematocrit (Bld) [Volume fraction] 17.6 % Low 35-47 [facility] Comment on above: Performed By: #### 2 157-6, CBCA #### [facility] ([id number]) [address] [place] [address] 65377 Hemoglobin (Bld) [Mass/Vol] 5.5 g/dL Critically low 11.7-15.5 [facility] Comment on above: Performed By: #### 2 157-6, CBCA #### [facility] ([id number]) [address] [place] [address] 71771 Lymphocytes (Bld) [#/Vol] 0.4 10*3/uL Low 1.0-3.5 [facility] Comment on above: Performed By: #### 2 157-6, CBCA #### [facility] ([id number]) [address] [place] [address] 61210 Lymphocytes/100 WBC (Bld) 6.5 % Normal [facility] Comment on above: Performed By: #### 2 157-6, CBCA #### [facility] ([id number]) [address] [place] [address] 80330 MCH (RBC) [Entitic mass] 32.5 pg Normal 27-34 [facility] Comment on above: Performed By: #### 2 157-6, CBCA #### [facility] ([id number]) [address] [place] [address] 16287 MCHC (RBC) [Mass/Vol] 31.3 g/dL Low 32-36 [facility] Comment on above: Performed By: #### 2 157-6, CBCA #### [facility] ([id number]) [address] [place] [address] 06277 MCV (RBC) [Entitic vol] 104 fL High 80-100 [facility] Comment on above: Performed By: #### 2 157-6, CBCA #### [facility] ([id number]) [address] [place] [address] 42874 Monocytes (Bld) [#/Vol] 0.3 10*3/uL Normal 0-0.9 [facility] Comment on above: Performed By: #### 2 157-6, CBCA #### [facility] ([id number]) [address] [place] [address] 58706 Monocytes/100 WBC (Bld) 5.0 % Normal [facility] Comment on above: Performed By: #### 2 157-6, CBCA #### [facility] ([id number]) [address] [place] [address] 44441 Neutrophils/100 WBC (Bld) 84.3 % Normal [facility] Comment on above: Performed By: #### 2 157-6, CBCA #### [facility] ([id number]) [address] [place] [address] [place] [address] Platelet mean volume (Bld) [Entitic vol] 8.1 fL Normal 7-12 [facility] Comment on above: Performed By: #### 2 157-6, CBCA #### [facility] ([id number]) [address] [place] [address] 76323 Platelets (Bld) [#/Vol] 153 10*3/uL Normal 150-450 [facility] Comment on above: Performed By: #### 2 157-6, CBCA #### [facility] ([id number]) [address] [place] [address] 71246 RBC COUNT 1.70 X10E12/L Low 3.80-5.20 [facility] Comment on above: Performed By: #### 2 157-6, CBCA #### [facility] ([id number]) [address] [place] [address] 12432 WBC (Bld) [#/Vol] 6.7 10*3/uL Normal 4.0-11.0 [facility] Comment on above: Performed By: #### 2 157-6, CBCA #### [facility] ([id number]) [address] [place] [address], [place] [address] CBC W Auto Differential pane l (Bld)on 12-16-2023 ABSOLUTE BASOPHIL 0.0 [facility] Comment on above: PERFORMED AT [address] [place] [address] Basophils/100 WBC (Bld) 0.5 % [facility] Eosinophils (Bld) [#/Vol] 0.2 10*3/uL [facility] Eosinophils/100 WBC (Bld) 3.7 % [facility] Erythrocyte distribution width (RBC) [Ratio] 19.9 % High 11.5 - 15.0 % [facility] Hematocrit (Bld) [Volume fraction] 17.6 % Low 35 - 47 % [facility] Hem[facility] (Bld) [Mass/Vol] 5.5 g/dL Critically low 11.7 - 15.5 g/dL [facility] Interpretation and review of laboratory results Abnormal [facility] Lymphocytes (Bld) [#/Vol] 0.4 10*3/uL Low [facility] Lymphocytes/100 WBC (Bld) 6.5 % [facility] MCH (RBC) [Entitic mass] 32.5 pg 27 - 34 pg [facility] MCHC (RBC) [Mass/Vol] 31.3 g/dL Low 32 - 36 g/dL [facility] MCV (RBC) [Entitic vol] 104 fL High 80 - 100 fL [facility] Monocytes (Bld) [#/Vol] 0.3 10*3/uL [facility] Monocytes/100 WBC (Bld) 5.0 % [facility] Neutrophils (Bld) [#/Vol] 5.7 10*3/uL [facility] Neutrophils/100 WBC (Bld) 84.3 % [facility] Platelet mean volume (Bld) [Entitic vol] 8.1 fL 7 - 12 fL [facility] Platelets (Bld) [#/Vol] 153 10*3/uL [facility] RBC (Bld) [#/Vol] 1.70 10*6/uL Low [facility] WBC corrected for nucl RBC Auto (Bld) [#/Vol] 6.7 [facility] COMPREHENSIVE METABOLIC PANE Anibal 12-16-2023 Albumin [Mass/Vol] 2.6 g/dL Low 3.2-5.3 [facility] Comment on above: Performed By: #### 2 157-6, CBCA #### [facility] ([id number]) [address] [place] [address] 75708 ALP [Catalytic activity/Vol] 189 U/L High 39-130 [facility] Comment on above: Performed By: #### 2 157-6, CBCA #### [facility] ([id number]) [address] [place] [address] 67080 ALT [Catalytic activity/Vol] 11 U/L Normal 0-31 [facility] Comment on above: Performed By: #### 2 157-6, CBCA #### [facility] ([id number]) [address] [place] [address] 59447 Anion gap [Moles/Vol] 8 mmol/L Normal 5-15 [facility] Comment on above: Performed By: #### 2 157-6, CBCA #### [facility] ([id number]) [address] [place] [address] 70799 AST [Catalytic activity/Vol] 11 U/L Normal 0-41 [facility] Comment on above: Performed By: #### 2 157-6, CBCA #### [facility] ([id number]) [address] [place] [address] 83875 Bilirubin [Mass/Vol] 0.3 mg/dL Normal 0.3-1.2 [facility] Comment on above: Performed By: #### 2 157-6, CBCA #### [facility] ([id number]) [address] [place] [address] 72292 Calcium [Mass/Vol] 8.0 mg/dL Low 8.5-10.5 [facility] Comment on above: Performed By: #### 2 157-6, CBCA #### [facility] ([id number]) [address] [place] [address] 69009 Chloride [Moles/Vol] 93 mmol/L Low 98-109 [facility] Comment on above: Performed By: #### 2 157-6, CBCA #### [facility] ([id number]) [address] [place] [address] 58720 CO2 [Moles/Vol] 30 mmol/L Normal 22-32 [facility] Comment on above: Performed By: #### 2 157-6, CBCA #### [facility] ([id number]) [address] [place] [address] 25499 Creatinine [Mass/Vol] 2.34 mg/dL High 0.40-1.00 [facility] Comment on above: Result Comment: METH OD TRACEABLE TO IDMS STANDARD Performed By: #### 2 157-6, CBCA #### [facility] ([id number]) [address] [place] [address] 66659 GFR/1.73 sq M.predicted among non-blacks MDRD (S/P/Bld) [Vol rate/Area] 24 mL/min/{1.73_m2} Low >59 [facility] Comment on above: Result Comment: Reported eGFR is based on the CKD-EPI 1 equation that does not use a race coefficient. Performed By: #### 2 157-6, CBCA #### [facility] ([id number]) [address] [place] [address] 86652 Glucose [Mass/Vol] 129 mg/dL High 65-99 [facility] Comment on above: Performed By: #### 2 157-6, CBCA #### [facility] ([id number]) [address] [place] [address] 23977 Potassium [Moles/Vol] 3.5 mmol/L Normal 3.5-5.0 [facility] Comment on above: Performed By: #### 2 157-6, CBCA #### [facility] ([id number]) [address] [place] [address] 25957 Protein [Mass/Vol] 5.7 g/dL Low 6.0-8.0 [facility] Comment on above: Performed By: #### 2 157-6, CBCA #### [facility] ([id number]) [address] [place] [address] 73083 Sodium [Moles/Vol] 131 mmol/L Low 134-146 [facility] Comment on above: Performed By: #### 2 157-6, CBCA #### [facility] ([id number]) [address] [place] [address] 56091 Urea nitrogen [Mass/Vol] 22 mg/dL Normal 5-23 [facility] Comment on above: Performed By: #### 2 157-6, CBCA #### [facility] ([id number]) [address] [place] [address] 32479 MYRNA FECAL OCCULT BLDon 12-15 Hemoglobin.gastrointe stinal Ql (Stl) Positive Abnormal NEG [facility] Comment on above: Performed By: #### 2 157-6 #### [facility] ([id number]) [address] [place] [address] 16916 #### [id number] #### [facility] ([id number]) [address], [address] [place] [address] PROTIME AND INRon 12-16-2023 INR Coag (PPP) [Relative time] 1.3 {INR} High 0.8-1.1 [facility] Comment on above: Performed By: #### 2 157-6, CBCA #### [facility] ([id number]) [address] [place] [address] 63014 PT Coag (PPP) [Time] 14.9 s High 9.8-13.2 [facility] Comment on above: Result Comment: NEW REFERENCE RANGE Performed By: #### 2 157-6, CBCA #### [facility] ([id number]) [address] [place] [address] 41710 aPTT Coag (PPP) [Time]on aPTT Coag (Bld) [Time] 38 s High 26-37 [facility] Comment on above: Result Comment: NEW REFERENCE RANGE Performed By: #### 2 157-6, CBCA #### [facility] ([id number]) [address] [place] [address] 13316 Follow-Upon 12-13-2023 Follow-Up [id number] Matthew Neal 1965 F Date Provider Department Center 12/13/2023 Tracey-IDANIA GUND[facility] SURG Second Fl Family History Family history unknown: Yes Level of Service:88037 AR OFFICE/OUTPATIENT ESTABLISHED SF MDM 10 MIN Reason for Visit and Comments: Follow-up [055584] - Matthew is here today for Infected prosthetic mesh of abdominal wall, s/p umbilical hernia repair with mesh- 1 mth f/u Normal [facility] CT CHEST WO CONTon CT CHEST WO CONT CT CHEST WO CONT *ADDENDUM*Addendum: Coronary artery calcification: Moderate Finalized by Artur Pardo MD on 11/12/2023 8:27 AM Normal [facility] ARTERIAL BLOOD GASon 024 TRIXIE'S TEST Pass Normal [facility] Comment on above: Performed By: #### A BG ####[facility] ([id number])[address] [place] [address] BASE,DEFICIT 4.0 MMOL/L High 0.0-2.0 [facility] Comment on above: Performed By: #### A BG ####[facility] ([id number])[address] [place] [address] Body temperature 98.6 [degF] Normal 37.0 [facility] Comment on above: Performed By: #### A BG ####[facility] ([id number])[address] [facility] [place] [address] HCO3 (Bld) [Moles/Vol] 22.9 mmol/L Normal 22-26 [facility] Comment on above: Performed By: #### A BG ####[facility] ([id number])[address] [address] [place] [address] INSP. O2 CONC. 40 % Normal [facility] Comment on above: Performed By: #### A BG ####[facility] ([id number])[address] [facility] [address] [place] [address] Oxygen (Bld) [Partial pressure] 98 mm[Hg] Normal 80-100 [facility] Comment on above: Performed By: #### A BG ####[facility] ([id number])[address] [place] [address] Oxygen saturation in Blood 96.0 % Normal >90 [facility] Comment on above: Performed By: #### A BG ####[facility] ([id number])[address] [place] [address] OXYGEN SOURCE Vent Normal [facility] Comment on above: Performed By: #### A BG ####[facility] ([id number])[address] [place] [address] PCO2 49.5 MMHG High 35-45 [facility] Comment on above: Performed By: #### A BG ####[facility] ([id number])[address] [place] [address] pH (Bld) 7.272 [pH] Low 7.350-7.450 [facility] Comment on above: Performed By: #### A BG ####[facility] ([id number])[address]141 [place] [address] SAMPLE SITE RRad Normal [facility] Comment on above: Performed By: #### A BG ####[facility] ([id number])[address] [place] [address] SAMPLE TYPE ARTERIAL Normal [facility] Comment on above: Performed By: #### A BG ####[facility] ([id number])[address]141 [place] [address] BASIC METABOLIC PANLon 11-10 Anion gap [Moles/Vol] 13 mmol/L Normal 5-15 [facility] Comment on above: Performed By: #### C SUSAN, BMP ####[facility] ([id number])[address], [place] [address] Calcium [Mass/Vol] 9.0 mg/dL Normal 8.5-10.5 [facility] Comment on above: Performed By: #### C SUSAN, BMP ####[facility] ([id number])[address], [place] [address] Chloride [Moles/Vol] 97 mmol/L Low 98-109 [facility] Comment on above: Performed By: #### C SUSAN, BMP ####[facility] ([id number])[address], [place] [address] CO2 [Moles/Vol] 23 mmol/L Normal 22-32 [facility] Comment on above: Performed By: #### C SUSAN, BMP ####[facility] ([id number])[address], [place] [address] Creatinine [Mass/Vol] 3.08 mg/dL High 0.40-1.00 [facility] Comment on above: Result Comment: METH OD TRACEABLE TO IDMS STANDARD Performed By: #### C SUSAN, BMP ####[facility] ([id number])[address] [place] [address] GFR/1.73 sq M.predicted among non-blacks MDRD (S/P/Bld) [Vol rate/Area] 17 mL/min/{1.73_m2} Low >59 [facility] Comment on above: Result Comment: Repo rted eGFR is based on theCKD-EPI 2020 equation that doesnot use a race coefficient. Performed By: #### Darlene DAVIS, BMP ####[facility] ([id number])[address] [place] [address] Glucose [Mass/Vol] 139 mg/dL High 65-99 [facility] Comment on above: Performed By: #### Darlene DAVIS, BMP ####[facility] ([id number])[address] [address] [place] [address] Potassium [Moles/Vol] 4.5 mmol/L Normal 3.5-5.0 [facility] Comment on above: Result Comment: SPEC IMEN HEMOLYZED, RESULTS INCREASEDMODERATELY HEMOLYZED Performed By: #### Darlene DAVIS, BMP ####[facility] ([id number])[address], [place] [address] Sodium [Moles/Vol] 133 mmol/L Low 134-146 [facility] Comment on above: Performed By: #### Darlene DAVIS, BMP ####[facility] ([id number])[address] [address], [place] [address] Urea nitrogen [Mass/Vol] 21 mg/dL Normal 5-23 [facility] Comment on above: Performed By: #### Darlene DAVIS, BMP ####[facility] ([id number])[address], [place] [address] Basic Metabolic Panelon 08-0 Anion gap [Moles/Vol] 13 mmol/L 5 - 15 mmol/L [facility] Calcium [Mass/Vol] 9.0 mg/dL 8.5 - 10. 5 mg/dL [facility] Chloride [Moles/Vol] 97 mmol/L Low 98 - 10 9 mmol/L [facility] CO2 [Moles/Vol] 23 mmol/L 22 - 32 mmol/L [facility] Creatinine [Mass/Vol] 3.08 mg/dL High 0.40 - 1.00 mg/dL [facility] Comment on above: METHOD TRACEABLE TO [facility] STANDARD eGFR (CKD-EPI)non-race dependent 17 Low - PINF [facility] Comment on above: Reported eGFR is based on the CKD-EPI 2020 equation that does not use a race coefficient. Glucose [Mass/Vol] 139 mg/dL High 65 - 99 mg/dL [facility] Interpretation and review of laboratory results Abnormal [facility] Potassium [Moles/Vol] 4.5 mmol/L 3.5 - 5.0 mmol/L [facility] Comment on above: SPECIMEN HEMOLYZED, RESULTS INCREASED MODERATELY HEMOLYZED Sodium [Moles/Vol] 133 mmol/L Low 134 - 146 mmol/L [facility] Urea nitrogen [Mass/Vol] 21 mg/dL 5 - 23 mg/dL [facility] Blood Gas, Arterialon 2023 Arterial patency Wrist artery --pre arterial puncture Pass [facility] Base deficit (Bld) [Moles/Vol] 4.0 mmol/L High [facility] CO2 (Bld) [Partial pressure] 49.5 mm[Hg] High [facility] HCO3 (Bld) [Moles/Vol] 22.9 mmol/L [facility] Interpretation and review of laboratory results Abnormal [facility] Oxygen (Bld) [Partial pressure] 98 mm[Hg] [facility] Oxygen therapy source and amount [CARE] Vent [facility] Oxygen/Inspired gas setting [Volume Fraction] Ventilator 40 % [facility] pH (Bld) 7.272 [pH] Low 7.350 - 7.450 [facility] Specimen site Narrative RRad [facility] Specimen type Nom (Spec) ARTERIAL [facility] CBC without diffon Erythrocyte distribution width (RBC) [Ratio] 15.7 % High 11.5 - 15.0 % [facility] Hematocrit (Bld) [Volume fraction] 24.1 % Low 35 - 47 % [facility] Hemoglobin (Bld) [Mass/Vol] 7.7 g/dL Low 11.7 - 15.5 g/dL [facility] Interpretation and review of laboratory results Abnormal [facility] MCH (RBC) [Entitic mass] 31.5 pg 27 - 34 pg [facility] MCHC (RBC) [Mass/Vol] 31.8 g/dL Low 32 - 36 g/dL [facility] MCV (RBC) [Entitic vol] 99 fL 80 - 100 fL [facility] Platelet mean volume (Bld) [Entitic vol] 8.8 fL 7 - 12 fL [facility] Platelets (Bld) [#/Vol] 116 10*3/uL Low [facility] RBC (Bld) [#/Vol] 2.44 10*6/uL Low [facility] WBC corrected for nucl RBC Auto (Bld) [#/Vol] 6.3 [facility] COMPLETE BLOOD COUNTon 11-10 Erythrocyte distribution width (RBC) [Ratio] 15.7 % High 11.5-15.0 [facility] Comment on above: Performed By: #### C SUSAN, BMP ####[facility] ([id number], [address] [place] [id number] Hematocrit (Bld) [Volume fraction] 24.1 % Low 35-47 [facility] Comment on above: Performed By: #### C SUSAN, BMP ####[facility] ([id number])[address], [address] [place] [address] Hemoglobin (Bld) [Mass/Vol] 7.7 g/dL Low 11.7-15.5 [facility] Comment on above: Performed By: #### C SUSAN, BMP ####[facility] ([id number])[address], [address] [place] [address] MCH (RBC) [Entitic mass] 31.5 pg Normal 27-34 [facility] Comment on above: Performed By: #### C SUSAN, BMP ####[facility] ([id number])[address], [address] [place] [address] MCHC (RBC) [Mass/Vol] 31.8 g/dL Low 32-36 [facility] Comment on above: Performed By: #### C SUSAN, BMP ####[facility] ([id number])[address], [address] [place] [address] MCV (RBC) [Entitic vol] 99 fL Normal 80-100 [facility] Comment on above: Performed By: #### Darlene DAVIS, BMP ####[facility] ([id number])[address], [address] [place] [address] Platelet mean volume (Bld) [Entitic vol] 8.8 fL Normal 7-12 [facility] Comment on above: Performed By: #### Darlene DAVIS, BMP ####[facility] ([id number])[address], [address] [place] [address] Platelets (Bld) [#/Vol] 116 10*3/uL Low 150-450 [facility] Comment on above: Performed By: #### Darlene DAVIS, BMP ####[facility] ([id number])[address], [address] [place] [address] RBC COUNT 2.44 X10E12/L Low 3.80-5.20 [facility] Comment on above: Performed By: #### Darlene DAVIS, BMP ####[facility] ([id number])[address], [address] [place] [address] WBC (Bld) [#/Vol] 6.3 10*3/uL Normal 4.0-11.0 [facility] Comment on above: Performed By: #### C BC, BMP ####[facility] ([id number])[address] [address] [place] SWALLOW MOTILITY FUNCTION on 11-11-2023 FL SWALLOW MOTILITY FUNCTION Normal [facility] Glucose Glucometer (BldC) [M ass/Vol]on 11-11-2023 Glucose [Mass/Vol] 206 mg/dL High 65 - 99 mg/dL [facility] Interpretation and review of laboratory results Abnormal [facility] Glucose [Mass/Vol] 206 mg/dL High 65-99 [facility] Glucose [Mass/Vol] 126 mg/dL High 65 - 99 mg/dL [facility] Interpretation and review of laboratory results Abnormal [facility] Glucose [Mass/Vol] 126 mg/dL High 65-99 [facility] Glucose [Mass/Vol] 134 mg/dL High 65 - 99 mg/dL [facility] Interpretation and review of laboratory results Abnormal [facility] Glucose [Mass/Vol] 134 mg/dL High 65-99 [facility] HGB AND HCTon 11-11-2023 Hematocrit (Bld) [Volume fraction] 23.4 % Low 35-47 [facility] Comment on above: Performed By: #### H H ####[facility] ([id number])[address] [address] Hemoglobin (Bld) [Mass/Vol] 7.7 g/dL Low 11.7-15.5 [facility] Comment on above: Performed By: #### H H ####[facility] ([id number])[address] [place] [address], [address] [address] Hemodialysis inpatienton Kadeem Zeng RN 11/11/2023 12:28 PM PT had 3.5 hours of dialysis today with a net fluid removal of 1.7kg Pre wt 150.0kg Post wt 148.3kg Unable to remove more fluid due to blood pressure. Albumin spa and midodrine 10mg po for two doses given. Catheter functioned well, reversed at 400 pump speed. [facility] Hemoglobin and hematocrit, b loodon 11-11-2023 Hematocrit (Bld) [Volume fraction] 23.4 % Low 35 - 47 % [facility] Hemoglobin (Bld) [Mass/Vol] 7.7 g/dL Low 11.7 - 15.5 g/dL [facility] Interpretation and review of laboratory results Abnormal [facility] RF videography Hypopharynx a nd Esophagus Viewson 11-11-2023 FL SWALLOW MOTILITY FUNCTION HISTORY: Oropharyngeal dysphagia COMPARISON: None TECHNIQUE: Video fluoroscopic swallow study was performed in conjunction with speech pathologist. Barium contrast materials of varying consistencies administered. FINDINGS: Fluoroscopy time: 1.29 Reference air kerma: 10.88 mGy Runs: 18 Thin: Penetration. Mildly thick: Penetration. Moderately thick: No penetration or aspiration. Applesauce: No penetration or aspiration. Fruit: No penetration or aspiration. IMPRESSION: 1. Penetration with thin and mildly thick liquids. 2. Please correlate with dedicated speech pathology report for additional details and recommendations. Approved by Kishor Todd DO on 11/10/2023 2:29 PM Kane Romero MD have personally reviewed the image(s) and agree with and/or edited the report Finalized by Kane Parekh MD on 11/11/2023 8:36 AM [facility] Pal M D - 11/11/2023 FL SWALLOW MOTILITY FUNCTION HISTORY: Oropharyngeal dysphagia COMPARISON: None TECHNIQUE: Video fluoroscopic swallow study was performed in conjunction with speech pathologist. Barium contrast materials of varying consistencies administered. FINDINGS: Fluoroscopy time: 1.29 Reference air kerma: 10.88 mGy Runs: 18 Thin: Penetration. Mildly thick: Penetration. Moderately thick: No penetration or aspiration. Applesauce: No penetration or aspiration. Fruit: No penetration or aspiration. IMPRESSION: 1. Penetration with thin and mildly thick liquids. 2. Please correlate with dedicated speech pathology report for additional details and recommendations. Approved by Kishor Todd DO on 11/10/2023 2:29 PM Kane Romero MD have personally reviewed the image(s) and agree with and/or edited the report Finalized by Kane Parekh MD on 11/11/2023 8:36 AM [facility] RF videography Hypopharynx a nd Esophagus ViewsOrdered By: Kane Parekh on 11-11-2023 [facility] Work Phone: XR CHEST 1 VWon 11-11-2023 XR CHEST 1 VW Normal [facility] XR Chest Single viewon 11-10 Clinical history: Intubated Views: 1 Comparison: 11/10/2023 Findings/Impression: 1. Central line overlies right atrium. NG courses below GE junction. 2. Heart size prominent. Vasculature is engorged. Interstitial markings prominent. No pneumothorax. Small effusions left side greater than right similar to previous exam. 3. Findings consistent with CHF similar to the previous exam Finalized by Margarito Bravo MD on 11/11/2023 4:32 AM [facility] Margarito Bravo MD - 11/11/2023 Clinical history: Intubated Views: 1 Comparison: 11/10/2023 Findings/Impression: 1. Central line overlies right atrium. NG courses below GE junction. 2. Heart size prominent. Vasculature is engorged. Interstitial markings prominent. No pneumothorax. Small effusions left side greater than right similar to previous exam. 3. Findings consistent with CHF similar to the previous exam Finalized by Margarito Bravo MD on 11/11/2023 4:32 AM [facility] Radiology Study observation (narrative) [facility] ARTERIAL BLOOD GASon 024 TRIXIE'S TEST Normal [facility] Comment on above: Performed By: #### A BG ####[facility] ([id number])[address] [place] [address] BASE,DEFICIT 6.0 MMOL/L High 0.0-2.0 [facility] Comment on above: Performed By: #### A BG ####[facility] ([id number])[address] [place] [address] Body temperature 98.6 [degF] Normal 37.0 [facility] Comment on above: Performed By: #### A BG ####[facility] ([id number])[address] [place] [address] HCO3 (Bld) [Moles/Vol] 21.0 mmol/L Low 22-26 [facility] Comment on above: Performed By: #### A BG ####[facility] ([id number])[address] [place] [place] [address] INSP. O2 CONC. 40 % Normal [facility] Comment on above: Performed By: #### A BG ####[facility] ([id number])[address] [place] [address] Oxygen (Bld) [Partial pressure] 106 mm[Hg] High 80-100 [facility] Comment on above: Performed By: #### A BG ####[facility] ([id number])[address] [place] [address] Oxygen saturation in Blood 97.0 % Normal >90 [facility] Comment on above: Performed By: #### A BG ####[facility] ([id number])[address] [facility] [place] [address] OXYGEN SOURCE Vent Normal [facility] Comment on above: Performed By: #### A BG ####[facility] ([id number])[address] [place] [address] PCO2 45.8 MMHG High 35-45 [facility] Comment on above: Performed By: #### A BG ####[facility] ([id number])[address] [place] [address] pH (Bld) 7.270 [pH] Low 7.350-7.450 [facility] Comment on above: Performed By: #### A BG ####[facility] ([id number])[address] [place] [address] SAMPLE SITE Chris Normal [facility] Comment on above: Performed By: #### A BG ####[facility] ([id number])[address] [place] [address] SAMPLE TYPE ARTERIAL Normal [facility] Comment on above: Performed By: #### A BG ####[facility] ([id number])[address] [place] [address] BASIC METABOLIC PANLon 11-09 GFR/1.73 sq M.predicted among non-blacks MDRD (S/P/Bld) [Vol rate/Area] 13 mL/min/{1.73_m2} Low >59 [facility] Comment on above: Result Comment: Repo rted eGFR is based on theCKD-EPI 2020 equation that doesnot use a race coefficient. Performed By: #### C SUSAN [facility], , 2776-04 ####[facility] ([id number])[address], [address], [place] [address] Anion gap [Moles/Vol] 18 mmol/L High 5-15 [facility] Comment on above: Performed By: #### C ELIZABETH DAVIS, , 2776-04 ####[facility] ([id number])[address], [address] [place] [address] Calcium [Mass/Vol] 9.0 mg/dL Normal 8.5-10.5 [facility] Comment on above: Performed By: #### C SUSAN, BMP, , 2776-04 ####[facility] ([id number])[address], [address] [place] [address] Chloride [Moles/Vol] 95 mmol/L Low 98-109 [facility] Comment on above: Performed By: #### C SUSAN BMP, , 2776-04 ####[facility] ([id number])[address], [address], [place] [address] CO2 [Moles/Vol] 19 mmol/L Low 22-32 [facility] Comment on above: Performed By: #### ELIZABETH MCCONNELL, , 2776-04 ####[facility] ([id number])[address], [address], [place] [address] Creatinine [Mass/Vol] 3.87 mg/dL High 0.40-1.00 [facility] Comment on above: METHOD TRACEABLE TO IDMS STANDARD Result Comment: METH OD TRACEABLE TO IDMS STANDARD Performed By: #### ELIZABETH MCCONNELL, , 2776-04 ####[facility] ([id number])[address], [address], [place] [address] Glucose [Mass/Vol] 141 mg/dL High 65-99 [facility] Comment on above: Performed By: #### ELIZABETH MCCONNELL, , 2776-04 ####[facility] ([id number])[address], [address], [place] [address] Potassium [Moles/Vol] 4.1 mmol/L Normal 3.5-5.0 [facility] Comment on above: Performed By: #### ELIZABETH MCCONNELL, , 2776-04 ####[facility] ([id number])[address], [address], [place] [address] Sodium [Moles/Vol] 132 mmol/L Low 134-146 [facility] Comment on above: Performed By: #### ELIZABETH MCCONNELL, , 2776-04 ####[facility] ([id number])[address], [address], [place] [address] Urea nitrogen [Mass/Vol] 33 mg/dL High 5-23 [facility] Comment on above: Performed By: #### ELIZABETH MCCONNELL, , 2776-04 ####[facility] ([id number])[address] [facility], [place] [address] Basic Metabolic Panelon eGFR (CKD-EPI)non-race dependent 13 Low - PINF [facility] Comment on above: Reported eGFR is based on the CKD-EPI 2020 equation that does not use a race coefficient. Interpretation and review of laboratory results Abnormal [facility] Blood Gas, Arterialon 2023 Arterial patency Wrist artery --pre arterial puncture [facility] Base deficit (Bld) [Moles/Vol] 6.0 mmol/L High [facility] CO2 (Bld) [Partial pressure] 45.8 mm[Hg] High [facility] HCO3 (Bld) [Moles/Vol] 21.0 mmol/L Low [facility] Interpretation and review of laboratory results Abnormal [facility] Oxygen (Bld) [Partial pressure] 106 mm[Hg] High [facility] Oxygen therapy source and amount [CARE] Vent [facility] Oxygen/Inspired gas setting [Volume Fraction] Ventilator 40 % [facility] pH (Bld) 7.270 [pH] Low 7.350 - 7.450 [facility] Specimen site Narrative [facility] Specimen type Nom (Spec) ARTERIAL [facility] CBC without diffon Interpretation and review of laboratory results Abnormal [facility] RBC (Bld) [#/Vol] 2.64 10*6/uL Low [facility] WBC corrected for nucl RBC Auto (Bld) [#/Vol] 7.2 [facility] COMPLETE BLOOD COUNTon 11-09 RBC COUNT 2.64 X10E12/L Low 3.80-5.20 [facility] Comment on above: Performed By: #### C BC, BMP, [address]4810-2, 2777-1 ####[facility] ([id number])[address] [facility], [address], [place] [address] WBC (Bld) [#/Vol] 7.2 10*3/uL Normal 4.0-11.0 [facility] Comment on above: Performed By: #### C SUSAN, BMP, , 2776-04 ####[facility] ([id number])[address], [place] [address] Erythrocyte distribution width (RBC) [Ratio] 15.3 % High 11.5-15.0 [facility] Comment on above: Performed By: #### C SUSAN, BMP, , 2776-04 ####[facility] ([id number])[address], [address], [place] [address] Hematocrit (Bld) [Volume fraction] 26.4 % Low 35-47 [facility] Comment on above: Performed By: #### Darlene DAVIS, BMP, , 2776-04 ####[facility] ([id number])[address], [place] [address] Hemoglobin (Bld) [Mass/Vol] 8.5 g/dL Low 11.7-15.5 [facility] Comment on above: Performed By: #### C ELIZABETH DAVIS, , 2776-04 ####[facility] ([id number])[address], [address], [place] [address] MCH (RBC) [Entitic mass] 32.3 pg Normal 27-34 [facility] Comment on above: Performed By: #### Darlene DAVIS, BMP, , 2776-04 ####[facility] ([id number])[address], [address], [place] [address] MCHC (RBC) [Mass/Vol] 32.3 g/dL Normal 32-36 [facility] Comment on above: Performed By: #### Darlene DAVIS, BMP, , 2776-04 ####[facility] ([id number])[address], [address], [place] [address] MCV (RBC) [Entitic vol] 100 fL Normal 80-100 [facility] Comment on above: Performed By: #### C SUSAN, ELIZABETH, , 2776-04 ####[facility] ([id number])[address], [address] [place] [address] Platelet mean volume (Bld) [Entitic vol] 8.0 fL Normal 7-12 [facility] Comment on above: Performed By: #### Darlene DAVIS, ELIZABETH, , 2776-04 ####[facility] ([id number])[address], [address], [place] [address] Platelets (Bld) [#/Vol] 94 10*3/uL Low 150-450 [facility] Comment on above: Performed By: #### Darlene DAVIS, ELIZABETH, , 1 ####[facility] ([id number])[address], [place] [address] Glucose Glucometer (BldC) [M ass/Vol]on 11-10-2023 Glucose [Mass/Vol] 182 mg/dL High 65 - 99 mg/dL [facility] Interpretation and review of laboratory results Abnormal [facility] Glucose [Mass/Vol] 182 mg/dL High 65-99 [facility] Glucose [Mass/Vol] 140 mg/dL High 65 - 99 mg/dL [facility] Interpretation and review of laboratory results Abnormal [facility] Glucose [Mass/Vol] 140 mg/dL High 65-99 [facility] Glucose [Mass/Vol] 139 mg/dL High 65 - 99 mg/dL [facility] Interpretation and review of laboratory results Abnormal [facility] Glucose [Mass/Vol] 139 mg/dL High 65-99 [facility] Glucose [Mass/Vol] 142 mg/dL High 65 - 99 mg/dL [facility] Interpretation and review of laboratory results Abnormal [facility] Glucose [Mass/Vol] 142 mg/dL High 65-99 [facility] Hemodialysis inpatienton Kadeem Zeng RN 11/11/2023 9:19 AM See Previous note of HD [facility] - Chemistry and C hemistry - challengeon 11-10-2023 Magnesium [Mass/Vol] 2.1 mg/dL Normal 1.8-2.6 [facility] Comment on above: Performed By: #### C BC, BMP, 03571-7, 2777-1 ####[facility] ([id number])[address] [place] [address] Phosphate [Mass/Vol] 4.8 mg/dL Normal 2.4-4.9 [facility] Comment on above: Performed By: #### C SUSAN, BMP, 43470-1, 2777-1 ####[facility] ([id number])[address], [address] [place] [address] No Panel Informationon 11-09 [facility] RF videography Hypopharynx a nd Esophagus Viewson 11-10-2023 Radiology Study observation (narrative) [facility] US.doppler Lower extremity v ein - bilateralon 11-10-2023 Right: Portable lowe r extremity deep vein thrombosis (DVT) exam performed. Common femoral, femoral, popliteal and deep calf muscle veins are compressible without intraluminal content. Spontaneous, common femoral and popliteal spectral Doppler signals. Evaluation of superficial veins was not performed. Left: Portable lower extremity deep vein thrombosis (DVT) exam performed. Common femoral, femoral, popliteal and deep calf muscle veins are compressible without intraluminal content. Spontaneous, common femoral and popliteal spectral Doppler signals. Evaluation of superficial veins was not performed. General: In-patient, bedside examination. Conclusions: BILATERAL: NO EVIDENCE of deep or superficial vein thrombosis of the lower extremities with limited visualization of lower extremity vein segments as described above. Recommendations: Any questions prior to finalization, please call the reading physician during normal business hours at the phone number beside their name. PM CARDIOVASCULAR Moose Lewis MD - 11/10/2023 Right: Portable lower extremity deep vein thrombosis (DVT) exam performed. Common femoral, femoral, popliteal and deep calf muscle veins are compressible without intraluminal content. Spontaneous, common femoral and popliteal spectral Doppler signals. Evaluation of superficial veins was not performed. Left: Portable lower extremity deep vein thrombosis (DVT) exam performed. Common femoral, femoral, popliteal and deep calf muscle veins are compressible without intraluminal content. Spontaneous, common femoral and popliteal spectral Doppler signals. Evaluation of superficial veins was not performed. General: In-patient, bedside examination. Conclusions: BILATERAL: NO EVIDENCE of deep or superficial vein thrombosis of the lower extremities with limited visualization of lower extremity vein segments as described above. Recommendations: Any questions prior to finalization, please call the reading physician during normal business hours at the phone number beside their name. [facility] Radiology Study observation (narrative) [facility] US.doppler Lower extremity v ein - bilateralOrdered By: Moose Lewis on 11-10-2023 [facility] Work Phone: XR CHEST 1 VWon 11-10-2023 XR CHEST 1 VW Normal [facility] XR Chest Single viewon 11-09 Clinical History: Tracheostomy. Respiratory distress. Portable Upright chest: 11/10/2023 Comparison: 11/09/2023 Findings: A single portable view of the chest was obtained. A tracheostomy cannula is grossly unchanged in appearance. The enteric tube is difficult to evaluate but appears to extend to the subdiaphragmatic region. A right IJ catheter terminates at the SVC right atrial junction. Cardiac mediastinal contours are grossly unchanged. The left heart in mediastinal border is indistinct with aortic prominence suggested. There is hazy opacity in the lung bases, left greater than right. No definite pneumothorax is present. IMPRESSION: Persistent left lung volume loss with indistinct mediastinal borders Pulmonary vascular congestion. Support lines and tubes are unchanged. Finalized by Artur Pardo MD on 11/10/2023 8:10 AM [facility] Artur Pardo MD - 11/10/2023 Clinical History: Tracheostomy. Respiratory distress. Portable Upright chest: 11/10/2023 Comparison: 11/09/2023 Findings: A single portable view of the chest was obtained. A tracheostomy cannula is grossly unchanged in appearance. The enteric tube is difficult to evaluate but appears to extend to the subdiaphragmatic region. A right IJ catheter terminates at the SVC right atrial junction. Cardiac mediastinal contours are grossly unchanged. The left heart in mediastinal border is indistinct with aortic prominence suggested. There is hazy opacity in the lung bases, left greater than right. No definite pneumothorax is present. IMPRESSION: Persistent left lung volume loss with indistinct mediastinal borders Pulmonary vascular congestion. Support lines and tubes are unchanged. Finalized by Artur Pardo MD on 11/10/2023 8:10 AM [facility] Radiology Study observation (narrative) [facility] ARTERIAL BLOOD GASon 024 TRIXIE'S TEST Normal [facility] Comment on above: Performed By: #### A BG ####[facility] ([id number])[address] [place] [address] BASE,DEFICIT 4.0 MMOL/L High 0.0-2.0 [facility] Comment on above: Performed By: #### A BG ####[facility] ([id number])[address] [place] [address] Body temperature 98.6 [degF] Normal 37.0 [facility] Comment on above: Performed By: #### A BG ####[facility] LABORATORY ([id number])2141 [place] [address] HCO3 (Bld) [Moles/Vol] 21.9 mmol/L Low 22-26 [facility] Comment on above: Performed By: #### A BG ####[facility] ([id number])2141 [place] [address] INSP. O2 CONC. 40 % Normal [facility] Comment on above: Performed By: #### A BG ####[facility] ([id number])2141 [place] [address] Oxygen (Bld) [Partial pressure] 116 mm[Hg] High 80-100 [facility] Comment on above: Performed By: #### A BG ####[facility] ([id number])2141 [place] [address] Oxygen saturation in Blood 98.0 % Normal >90 [facility] Comment on above: Performed By: #### A BG ####[facility] ([id number])2141 [place] [address] OXYGEN SOURCE Vent [facility] Comment on above: Performed By: #### A BG ####[facility] ([id number])2141 [place] [address] PCO2 44.2 MMHG Normal 35-45 [facility] Comment on above: Performed By: #### A BG ####[facility] ([id number])2141 [place] [address] pH (Bld) 7.302 [pH] Low 7.350-7.450 [facility] Comment on above: Performed By: #### A BG ####[facility] ([id number])2141 [place] [address] SAMPLE SITE Chris [facility] Comment on above: Performed By: #### A BG ####[facility] ([id number])2141 [place] [address] SAMPLE TYPE ARTERIAL Normal [facility] Comment on above: Performed By: #### A BG ####[facility] ([id number])2[address] [place] [address] BASIC METABOLIC PANLon 11-08 Anion gap [Moles/Vol] 14 mmol/L Normal 5-15 [facility] Comment on above: Performed By: #### C BC, BMP, 52974-8, 2777-1, 00948-7 ####[facility] ([id number])[address] [facility], [address] [facility] [place] [address] Calcium [Mass/Vol] 8.5 mg/dL Normal 8.5-10.5 [facility] Comment on above: Performed By: #### C SUSAN, ELIZABETH, , 2776-04, 05979-4 ####[facility] ([id number])[address], [address], [place] [address] Chloride [Moles/Vol] 98 mmol/L Normal 98-109 [facility] Comment on above: Performed By: #### C SUSAN, LEIZABETH, , 2776-04, 32275-8 ####[facility] ([id number])[address] [address] [place] [address] CO2 [Moles/Vol] 20 mmol/L Low 22-32 [facility] Comment on above: Performed By: #### C SUSAN, ELIZABETH, , 2776-04, 39048-8 ####[facility] ([id number])[address], [address] [place] [address] Creatinine [Mass/Vol] 5.02 mg/dL High 0.40-1.00 [facility] Comment on above: Result Comment: METH OD TRACEABLE TO IDMS STANDARD Performed By: #### C SUSAN, ELIZABETH, , 2776-04, 94865-1 ####[facility] ([id number])[address] [address] GFR/1.73 sq M.predicted among non-blacks MDRD (S/P/Bld) [Vol rate/Area] 10 mL/min/{1.73_m2} Low >59 [facility] Comment on above: Result Comment: Repo rted eGFR is based on theCKD-EPI 2020 equation that doesnot use a race coefficient. Performed By: #### C SUSAN, BMP, , 2776-, 56066-6 ####[facility] ([id number])[address] [address] Glucose [Mass/Vol] 154 mg/dL High 65-99 [facility] Comment on above: Performed By: #### C SUSAN, [facility], , 2776-04, 54305-4 ####[facility] ([id number])[address], [address] [address] Potassium [Moles/Vol] 4.9 mmol/L Normal 3.5-5.0 [facility] Comment on above: Performed By: #### Darlene DAVIS, BMP, , 2776-04, 81101-9 ####[facility] ([id number])[address], [address] [address] Sodium [Moles/Vol] 132 mmol/L Low 134-146 [facility] Comment on above: Performed By: #### Darlene DAVIS, [facility], , 2776-04, 60913-4 ####[facility] ([id number])[address], [address] [place] [address] Urea nitrogen [Mass/Vol] 53 mg/dL High 5-23 [facility] Comment on above: Performed By: #### Darlene DAVIS, [facility], , 2776-04, 17048-3 ####[facility] ([id number])[address], [address] [address] Basic Metabolic Panelon 07-3 Anion gap [Moles/Vol] 14 mmol/L 5 - 15 mmol/L [facility] Calcium [Mass/Vol] 8.5 mg/dL 8.5 - 10. 5 mg/dL [facility] Chloride [Moles/Vol] 98 mmol/L 98 - 10 9 mmol/L [facility] CO2 [Moles/Vol] 20 mmol/L Low 22 - 32 mmol/L [facility] Creatinine [Mass/Vol] 5.02 mg/dL High 0.40 - 1.00 mg/dL [facility] Comment on above: METHOD TRACEABLE TO IDAR STANDARD eGFR (CKD-EPI)non-race dependent 10 Low - PINF [facility] Comment on above: Reported eGFR is based on the CKD-EPI 2020 equation that does not use a race coefficient. Glucose [Mass/Vol] 154 mg/dL High 65 - 99 mg/dL [facility] Potassium [Moles/Vol] 4.9 mmol/L 3.5 - 5.0 mmol/L [facility] Sodium [Moles/Vol] 132 mmol/L Low 134 - 146 mmol/L [facility] Urea nitrogen [Mass/Vol] 53 mg/dL High 5 - 23 mg/dL [facility] Blood Gas, Arterialon 2023 Arterial patency Wrist artery --pre arterial puncture [facility] Base deficit (Bld) [Moles/Vol] 4.0 mmol/L High [facility] CO2 (Bld) [Partial pressure] 44.2 mm[Hg] [facility] HCO3 (Bld) [Moles/Vol] 21.9 mmol/L Low [facility] Interpretation and review of laboratory results Abnormal [facility] Oxygen (Bld) [Partial pressure] 116 mm[Hg] High [facility] Oxygen therapy source and amount [CARE] Vent [facility] Oxygen/Inspired gas setting [Volume Fraction] Ventilator 40 % [facility] pH (Bld) 7.302 [pH] Low 7.350 - 7.450 [facility] Specimen site Narrative [facility] Specimen type Nom (Spec) ARTERIAL [facility] CBC without diffon Erythrocyte distribution width (RBC) [Ratio] 15.6 % High 11.5 - 15.0 % [facility] Hematocrit (Bld) [Volume fraction] 27.4 % Low 35 - 47 % [facility] Hemoglobin (Bld) [Mass/Vol] 8.7 g/dL Low 11.7 - 15.5 g/dL [facility] Interpretation and review of laboratory results Abnormal [facility] MCH (RBC) [Entitic mass] 31.2 pg 27 - 34 pg [facility] MCHC (RBC) [Mass/Vol] 31.7 g/dL Low 32 - 36 g/dL [facility] MCV (RBC) [Entitic vol] 99 fL 80 - 100 fL [facility] Platelet mean volume (Bld) [Entitic vol] 8.3 fL 7 - 12 fL [facility] Platelets (Bld) [#/Vol] 92 10*3/uL Low [facility] RBC (Bld) [#/Vol] 2.78 10*6/uL Low [facility] WBC corrected for nucl RBC Auto (Bld) [#/Vol] 6.6 [facility] COMPLETE BLOOD COUNTon 11-08 Erythrocyte distribution width (RBC) [Ratio] 15.6 % High 11.5-15.0 [facility] Comment on above: Performed By: #### ELIZABETH MCCONNELL, , 2776-04, 65059-2 ####[facility] ([id number])[address] [address] [place] [address] Hematocrit (Bld) [Volume fraction] 27.4 % Low 35-47 [facility] Comment on above: Performed By: #### ELIZABETH MCCONNELL, , 2776-04, 02405-1 ####[facility] ([id number])[address] [address] [place] [address] Hemoglobin (Bld) [Mass/Vol] 8.7 g/dL Low 11.7-15.5 [facility] Comment on above: Performed By: #### ELIZABETH MCCONNELL, , 2776-04, 62107-2 ####[facility] ([id number])[address], [address] [place] [address] MCH (RBC) [Entitic mass] 31.2 pg Normal 27-34 [facility] Comment on above: Performed By: #### ELIZABETH MCCONNELL, , 2776-04, 38642-2 ####[facility] ([id number])[address], [address] [place] [address] MCHC (RBC) [Mass/Vol] 31.7 g/dL Low 32-36 [facility] Comment on above: Performed By: #### C SUSAN, BMP, , 2776-04, 13506-4 ####[facility] ([id number])[address], [address] [place] [address] MCV (RBC) [Entitic vol] 99 fL Normal 80-100 [facility] Comment on above: Performed By: #### Darlene DAVIS, BMP, , 2776-04, 10959-1 ####[facility] ([id number])[address], [address] [place] [address] Platelet mean volume (Bld) [Entitic vol] 8.3 fL Normal 7-12 [facility] Comment on above: Performed By: #### Darlene DAVIS, ELIZABETH, , 2776-04, 29481-0 ####[facility] ([id number])[address] [address] [place] [address] Platelets (Bld) [#/Vol] 92 10*3/uL Low 150-450 [facility] Comment on above: Performed By: #### Darlene DAVIS, BMP, , 2776-04, 59176-1 ####[facility] ([id number])[address] [address] [place] [address] RBC COUNT 2.78 X10E12/L Low 3.80-5.20 [facility] Comment on above: Performed By: #### Darlene DAVIS, BMP, , 2776-04, 21693-7 ####[facility] ([id number])[address] [address] [place] [address] WBC (Bld) [#/Vol] 6.6 10*3/uL Normal 4.0-11.0 [facility] Comment on above: Performed By: #### Darlene DAVIS, BMP, , 2776-04, 16647-0 ####[facility] ([id number])[address], [address] [place] [address] Glucose Glucometer (BldC) [M ass/Vol]on 11-09-2023 Glucose [Mass/Vol] 87 mg/dL 65 - 99 mg/dL [facility] Glucose [Mass/Vol] 87 mg/dL Normal 65-99 [facility] Glucose [Mass/Vol] 115 mg/dL High 65 - 99 mg/dL [facility] Interpretation and review of laboratory results Abnormal [facility] Glucose [Mass/Vol] 115 mg/dL High 65-99 [facility] Glucose [Mass/Vol] 120 mg/dL High 65 - 99 mg/dL [facility] Interpretation and review of laboratory results Abnormal [facility] Glucose [Mass/Vol] 120 mg/dL High 65-99 [facility] Glucose [Mass/Vol] 158 mg/dL High 65 - 99 mg/dL [facility] Interpretation and review of laboratory results Abnormal [facility] Glucose [Mass/Vol] 158 mg/dL High 65-99 [facility] HGB AND HCTon 11-09-2023 Hematocrit (Bld) [Volume fraction] 27.0 % Low 35-47 [facility] Comment on above: Performed By: #### H H ####[facility] ([id number])[address], [address] [place] [address] Hemoglobin (Bld) [Mass/Vol] 8.7 g/dL Low 11.7-15.5 [facility] Comment on above: Performed By: #### H H ####[facility] ([id number])[address], [address] [place] [address] Hemodialysis inpatienton Ofelia Rosa RN 11/09/2023 1:12 PM Patient tolerated 3.5 hour dialysis treatment fairly. Midodrine and Albumin given at beginning of treatment for hypotension and another dose given mid treatment for hypotension. Lowest BP 86/43. Patient asymptomatic. CVC ran reversed due to arterial pressure running high. Patient lines locked with alteplase at the end of treatment. Post weight- 152.8 kg Bed scales shows removal of 2.6 kg Post BP- 101/48 [facility] Hemoglobin and hematocrit, b loodon 11-09-2023 Hematocrit (Bld) [Volume fraction] 27.0 % Low 35 - 47 % [facility] Hemoglobin (Bld) [Mass/Vol] 8.7 g/dL Low 11.7 - 15.5 g/dL [facility] Interpretation and review of laboratory results Abnormal [facility] MAGNESIUMon 11-09-2023 Magnesium [Mass/Vol] 2.2 mg/dL Normal 1.8-2.6 [facility] Comment on above: Performed By: #### C ELIZABETH DAVIS, 97330-7, 2777-1, 78760-1 ####[facility] ([id number])[address] [facility], [address] [place] [address] Magnesiumon 11-09-2023 Magnesium [Mass/Vol] 2.2 mg/dL 1.8 - 2 .6 mg/dL [facility] No Panel Informationon 11-08 Interpretation and review of laboratory results Abnormal [facility] PHOSPHORUSon 11-09-2023 Phosphate [Mass/Vol] 5.3 mg/dL High 2.4-4.9 [facility] Comment on above: Performed By: #### C ELIZABETH DAVIS, 78614-6, 2777-1, 49047-2 ####[facility] ([id number])[address], [address] [place] [address] Phosphoruson 11-09-2023 Phosphate [Mass/Vol] 5.3 mg/dL High 2.4 - 4 .9 mg/dL [facility] Vitamin D 25 hydroxyon 11-08 Vitamin D+Metabolites [Mass/Vol] 23.7 ng/mL Low 30 - 100 ng/mL [facility] Comment on above: Vitamin D status 25 [place] Vitamin D Deficiency <20 ng/mL Insufficiency 20-29 ng/mL Sufficiency 30-100 ng/mL Toxicity >100 ng/mL NOTE: A pediatric reference range has not been established by the precision lens technician of this kit. The [employer] recommends a Vitamin D level of = or >20ng/mL in infants and children. Vitamin D+Metabolites [Mass/ Vol]on 11-09-2023 Interpretation and review of laboratory results Abnormal [facility] VITAMIN D 25 HYD TOT 23.7 ng/mL Low 30-100 [facility] Comment on above: Result Comment: Moon min D status 25 [place] Vitamin D Deficiency <20 ng/mLInsufficiency 20-29 ng/mLSufficiency 30-100 ng/mLToxicity >100 ng/mLNOTE: A pediatric reference range has not beenestablished by the precision lens technician of this kit.The [employer] recommendsa Vitamin D level of = or >20ng/mL in infantsand children. Performed By: #### C , [facility], [address]-4, 2777-1, 83546-9 ####[facility] ([id number])[address], [address] [place] [address] XR CHEST 1 VWon 11-09-2023 XR CHEST 1 VW Normal [facility] XR Chest Single viewon 11-08 Single view chest History:intubated Difficulty breathing, shortness of breath Comparison: 11/07/2023 Findings: Single portable view of the chest. Stable tracheostomy. Stable enteric catheter. Stable cardiomediastinal silhouette. Mild vascular congestion and edema. Left pleural effusion and left lower lung atelectasis or pneumonia, stable. Impression: Stable tubes and lines. Stable appearance of the chest. Finalized by Mirtha Renteria MD on 11/09/2023 3:23 AM Mirtha Ordonez MD - 11/09/2023 Single view chest History:intubated Difficulty breathing, shortness of breath Comparison: 11/07/2023 Findings: Single portable view of the chest. Stable tracheostomy. Stable enteric catheter. Stable cardiomediastinal silhouette. Mild vascular congestion and edema. Left pleural effusion and left lower lung atelectasis or pneumonia, stable. Impression: Stable tubes and lines. Stable appearance of the chest. Finalized by Mirtha Renteria MD on 11/09/2023 3:23 AM [facility] Radiology Study observation (narrative) [facility] XR FEMUR LT 2+ VIEWSon 11-08 XR FEMUR LT 2+ VIEWS Normal [facility] XR Femur - left 2 Viewson XR FEMUR LT 2+ VIEWS Clinical history:post op ORIF L distal femur fx Comparison: 11/07/2023 Impression: Postoperative changes and fixation of the distal femoral fracture plate screw.Near-anatomic alignment. No immediate hardware complication. Postoperative soft tissue changes. Finalized by Mirtha Renteria MD on 11/09/2023 3:26 AM Mirtha Ordonez MD - 11/09/2023 XR FEMUR LT 2+ VIEWS Clinical history:post op ORIF L distal femur fx Comparison: 11/07/2023 Impression: Postoperative changes and fixation of the distal femoral fracture plate screw.Near-anatomic alignment. No immediate hardware complication. Postoperative soft tissue changes. Finalized by Mirtha Renteria MD on 11/09/2023 3:26 AM [facility] Radiology Study observation (narrative) [facility] XR KNEE LT 1 OR 2 VWSon 10-11 XR KNEE LT 1 OR 2 VWS Normal [facility] XR Knee - left 1 or 2 Viewso n 11-09-2023 XR KNEE LT 1 OR 2 VW S Clinical history:post op ORIF L distal femur Comparison: 11/07/2023 Impression: Evaluation is markedly compromised by positioning. There is postoperative changes of distal femur. There is overlying material obscuring the osseous structures. Degenerative changes. Osteopenia. Vascular calcifications. Finalized by Mirtha Renteria MD on 11/09/2023 3:27 AM [facility] Mirtha Renteria MD - 11/09/2023 XR KNEE LT 1 OR 2 VWS Clinical history:post op ORIF L distal femur Comparison: 11/07/2023 Impression: Evaluation is markedly compromised by positioning. There is postoperative changes of distal femur. There is overlying material obscuring the osseous structures. Degenerative changes. Osteopenia. Vascular calcifications. Finalized by Mirtha Renteria MD on 11/09/2023 3:27 AM [facility] Radiology Study observation (narrative) [facility] ARTERIAL BLOOD GASon 024 TRIXIE'S TEST Normal [facility] Comment on above: Performed By: #### A BG ####[facility] ([id number])2141 [place] [address] BASE,DEFICIT 8.0 MMOL/L High 0.0-2.0 [facility] Comment on above: Performed By: #### A BG ####[facility] ([id number])2141 [place] [address] Body temperature 98.6 [degF] Normal 37.0 [facility] Comment on above: Performed By: #### A BG ####[facility] ([id number])2141 [place] [address] HCO3 (Bld) [Moles/Vol] 19.4 mmol/L Low 22-26 [facility] Comment on above: Performed By: #### A BG ####[facility] ([id number])2141 [place] [address] INSP. O2 CONC. 40 % Normal [facility] Comment on above: Performed By: #### A BG ####[facility] ([id number])2[address] [place] [address] Oxygen (Bld) [Partial pressure] 86 mm[Hg] Normal 80-100 [facility] Comment on above: Performed By: #### A BG ####[facility] ([id number])[address] [facility] [place] [address] Oxygen saturation in Blood 94.0 % Normal >90 [facility] Comment on above: Performed By: #### A BG ####[facility] ([id number])2[address] [place] [address] OXYGEN SOURCE Vent Normal [facility] Comment on above: Performed By: #### A BG ####[facility] ([id number])[address] [facility] [place] [address] PCO2 48.3 MMHG High 35-45 [facility] Comment on above: Performed By: #### A BG ####[facility] ([id number])2[address] [place] [address] pH (Bld) 7.212 [pH] Low 7.350-7.450 [facility] Comment on above: Performed By: #### A BG ####[facility] ([id number])[address] [place] [address] SAMPLE SITE Chris [facility] Comment on above: Performed By: #### A BG ####[facility] ([id number])2[address] [place] [address] SAMPLE TYPE ARTERIAL Normal [facility] Comment on above: Performed By: #### A BG ####[facility] ([id number])[address] [facility] [place] [address] TRIXIE'S TEST Normal [facility] Comment on above: Performed By: #### A BG ####[facility] ([id number])[address] [place] [address] BASE,DEFICIT 5.0 MMOL/L High 0.0-2.0 [facility] Comment on above: Performed By: #### A BG ####[facility] ([id number])[address] [facility] [place] [address] Body temperature 98.6 [degF] Normal 37.0 [facility] Comment on above: Performed By: #### A BG ####[facility] ([id number])[address] [place] [address] HCO3 (Bld) [Moles/Vol] 22.1 mmol/L Normal 22-26 [facility] Comment on above: Performed By: #### A BG ####[facility] ([id number])[address] [place] [address] INSP. O2 CONC. 40 % Normal [facility] Comment on above: Performed By: #### A BG ####[facility] ([id number])[address] [place] [address] Oxygen (Bld) [Partial pressure] 122 mm[Hg] High 80-100 [facility] Comment on above: Performed By: #### A BG ####[facility] ([id number])2[address] [place] [address] Oxygen saturation in Blood 98.0 % Normal >90 [facility] Comment on above: Performed By: #### A BG ####[facility] ([id number])[address] [place] [address] OXYGEN SOURCE Vent Normal [facility] Comment on above: Performed By: #### A BG ####[facility] ([id number])[address] [place] [address] PCO2 50.1 MMHG High 35-45 [facility] Comment on above: Performed By: #### A BG ####[facility] ([id number])2141 [place] [address] pH (Bld) 7.253 [pH] Low 7.350-7.450 [facility] Comment on above: Performed By: #### A BG ####[facility] ([id number])2141 [place] [address] SAMPLE SITE Chris Normal [facility] Comment on above: Performed By: #### A BG ####[facility] ([id number])2141 [place] [address] SAMPLE TYPE ARTERIAL Normal [facility] Comment on above: Performed By: #### A BG ####[facility] ([id number])2141 [place] [address] BASIC METABOLIC PANLon 11-07 Anion gap [Moles/Vol] 13 mmol/L Normal 5-15 [facility] Comment on above: Performed By: #### C BCA, BMP, , 2776-04 ####[facility] ([id number])[address] [place] [address] Calcium [Mass/Vol] 8.5 mg/dL Normal 8.5-10.5 [facility] Comment on above: Performed By: #### C BCA, BMP, , 2776-04 ####[facility] ([id number])[address] [place] [address] Chloride [Moles/Vol] 97 mmol/L Low 98-109 [facility] Comment on above: Performed By: #### C BCA, BMP, , 2776-04 ####[facility] ([id number])[address], [place] [address] CO2 [Moles/Vol] 20 mmol/L Low 22-32 [facility] Comment on above: Performed By: #### C BCA, BMP, , 2776-04 ####[facility] ([id number])[address] [address], [place] [address] Creatinine [Mass/Vol] 4.66 mg/dL High 0.40-1.00 [facility] Comment on above: Result Comment: METH OD TRACEABLE TO IDMS STANDARD Performed By: #### C ELIZABETH GONSALEZ, , 2776-04 ####[facility] ([id number])[address] [address] GFR/1.73 sq M.predicted among non-blacks MDRD (S/P/Bld) [Vol rate/Area] 10 mL/min/{1.73_m2} Low >59 [facility] Comment on above: Result Comment: Repo rted eGFR is based on theCKD-EPI 2020 equation that doesnot use a race coefficient. Performed By: #### C ELIZABETH GONSALEZ, , 2776-04 ####[facility] ([id number])[address] [address], [place] [address] Glucose [Mass/Vol] 188 mg/dL High 65-99 [facility] Comment on above: Performed By: #### C ELIZABETH GONSALEZ, , 2776-04 ####[facility] ([id number])[address] [address], [place] [address] Potassium [Moles/Vol] 4.9 mmol/L Normal 3.5-5.0 [facility] Comment on above: Performed By: #### C ELIZABETH GONSALEZ, , 2776-04 ####[facility] ([id number])[address] [address] Sodium [Moles/Vol] 130 mmol/L Low 134-146 [facility] Comment on above: Performed By: #### C ELIZABETH GONSALEZ, , 2776-04 ####[facility] ([id number])[address], [address], [place] [address] Urea nitrogen [Mass/Vol] 46 mg/dL High 5-23 [facility] Comment on above: Performed By: #### C BCA, BMP, , 2776-04 ####[facility] ([id number])[address], [address], [place] [address] Anion gap [Moles/Vol] 13 mmol/L Normal 5-15 [facility] Comment on above: Performed By: #### C BCA, BMP, , 2776-04 ####[facility] ([id number])[address], [address], [place] [address] Calcium [Mass/Vol] 8.9 mg/dL Normal 8.5-10.5 [facility] Comment on above: Performed By: #### C BCA, BMP, , 2776-04 ####[facility] ([id number])[address], [address], [place] [address] Chloride [Moles/Vol] 97 mmol/L Low 98-109 [facility] Comment on above: Performed By: #### C BCA, BMP, , 2776-04 ####[facility] ([id number])[address], [address], [place] [address] CO2 [Moles/Vol] 22 mmol/L Normal 22-32 [facility] Comment on above: Performed By: #### C BCA, BMP, , 2776-04 ####[facility] ([id number])[address], [address], [place] [address] Creatinine [Mass/Vol] 4.31 mg/dL High 0.40-1.00 [facility] Comment on above: Result Comment: METH OD TRACEABLE TO IDMS STANDARD Performed By: #### C BCA, BMP, , 2776-04 ####[facility] ([id number])[address] [address], [place] [address] GFR/1.73 sq M.predicted among non-blacks MDRD (S/P/Bld) [Vol rate/Area] 11 mL/min/{1.73_m2} Low >59 [facility] Comment on above: Result Comment: Repo rted eGFR is based on theCKD-EPI 2020 equation that doesnot use a race coefficient. Performed By: #### C WALLACE BMP, , 2776-04 ####[facility] ([id number])[address] [address], [place] [address] Glucose [Mass/Vol] 189 mg/dL High 65-99 [facility] Comment on above: Performed By: #### C WALLACE BMP, , 2776-04 ####[facility] ([id number])[address] [address], [place] [address] Potassium [Moles/Vol] 4.5 mmol/L Normal 3.5-5.0 [facility] Comment on above: Performed By: #### C WALLACE, BMP, , 2776-04 ####[facility] ([id number])[address] [address], [place] [address] Sodium [Moles/Vol] 132 mmol/L Low 134-146 [facility] Comment on above: Performed By: #### C WALLACE, BMP, , 2776-04 ####[facility] ([id number])[address] [address], [place] [address] Urea nitrogen [Mass/Vol] 44 mg/dL High 5-23 [facility] Comment on above: Performed By: #### C BCA, BMP, , 2776-04 ####[facility] ([id number])[address] [address] [place] [address] Basic Metabolic Panelon 07-3 Anion gap [Moles/Vol] 13 mmol/L 5 - 15 mmol/L [facility] Calcium [Mass/Vol] 8.5 mg/dL 8.5 - 10. 5 mg/dL [facility] Chloride [Moles/Vol] 97 mmol/L Low 98 - 10 9 mmol/L [facility] CO2 [Moles/Vol] 20 mmol/L Low 22 - 32 mmol/L [facility] Creatinine [Mass/Vol] 4.66 mg/dL High 0.40 - 1.00 mg/dL [facility] Comment on above: METHOD TRACEABLE TO [facility] STANDARD eGFR (CKD-EPI)non-race dependent [facility] Comment on above: Reported eGFR is based on the CKD-EPI 2020 equation that does not use a race coefficient. Glucose [Mass/Vol] 188 mg/dL High 65 - 99 mg/dL [facility] Potassium [Moles/Vol] 4.9 mmol/L 3.5 - 5.0 mmol/L [facility] Sodium [Moles/Vol] 130 mmol/L Low 134 - 146 mmol/L [facility] Urea nitrogen [Mass/Vol] 46 mg/dL High 5 - 23 mg/dL [facility] Anion gap [Moles/Vol] 13 mmol/L 5 - 15 mmol/L [facility] Calcium [Mass/Vol] 8.9 mg/dL 8.5 - 10. 5 mg/dL [facility] Chloride [Moles/Vol] 97 mmol/L Low 98 - 10 9 mmol/L [facility] CO2 [Moles/Vol] 22 mmol/L 22 - 32 mmol/L [facility] Creatinine [Mass/Vol] 4.31 mg/dL High 0.40 - 1.00 mg/dL [facility] Comment on above: METHOD TRACEABLE TO [facility] STANDARD eGFR (CKD-EPI)non-race dependent 11 Low - PINF [facility] Comment on above: Reported eGFR is based on the CKD-EPI 2021 equation that does not use a race coefficient. Glucose [Mass/Vol] 189 mg/dL High 65 - 99 mg/dL [facility] Potassium [Moles/Vol] 4.5 mmol/L 3.5 - 5.0 mmol/L [facility] Sodium [Moles/Vol] 132 mmol/L Low 134 - 146 mmol/L [facility] Urea nitrogen [Mass/Vol] 44 mg/dL High 5 - 23 mg/dL [facility] Blood Gas, Arterialon 2023 Arterial patency Wrist artery --pre arterial puncture [facility] Base deficit (Bld) [Moles/Vol] 8.0 mmol/L High [facility] CO2 (Bld) [Partial pressure] 48.3 mm[Hg] High [facility] HCO3 (Bld) [Moles/Vol] 19.4 mmol/L Low [facility] Interpretation and review of laboratory results Abnormal [facility] Oxygen (Bld) [Partial pressure] 86 mm[Hg] [facility] Oxygen therapy source and amount [CARE] Vent [facility] Oxygen/Inspired gas setting [Volume Fraction] Ventilator 40 % [facility] pH (Bld) 7.212 [pH] Low 7.350 - 7.450 [facility] Specimen site Narrative [facility] Specimen type Nom (Spec) ARTERIAL [facility] Arterial patency Wrist artery --pre arterial puncture [facility] Base deficit (Bld) [Moles/Vol] 5.0 mmol/L High [facility] CO2 (Bld) [Partial pressure] 50.1 mm[Hg] High [facility] HCO3 (Bld) [Moles/Vol] 22.1 mmol/L [facility] Interpretation and review of laboratory results Abnormal [facility] Oxygen (Bld) [Partial pressure] 122 mm[Hg] High [facility] Oxygen therapy source and amount [CARE] Vent [facility] Oxygen/Inspired gas setting [Volume Fraction] Ventilator 40 % [facility] pH (Bld) 7.253 [pH] Low 7.350 - 7.450 [facility] Specimen site Narrative [facility] Specimen type Nom (Spec) ARTERIAL [facility] CBC AND AUTO DIFFon 11-08-19 ABSOLUTE BASOPHIL 0.0 X10E9/L Normal 0.0-0.2 [facility] Comment on above: Performed By: #### C WALLACE, BMP, , 2776-04 ####[facility] ([id number])[address], [address], [place] [address] ABSOLUTE NEUTROPHIL 9.0 X10E9/L High 1.5-6.6 [facility] Comment on above: Performed By: #### C WALLACE, BMP, , 2776-04 ####[facility] ([id number])[address], [address] [place] [address] Basophils/100 WBC (Bld) 0.4 % Normal [facility] Comment on above: Performed By: #### C WALLACE, BMP, , 2776-04 ####[facility] ([id number])[address], [address] [place] [address] Eosinophils (Bld) [#/Vol] 0.2 10*3/uL Normal 0.0-0.4 [facility] Comment on above: Performed By: #### C WALLACE, BMP, , 2776-04 ####[facility] ([id number])[address], [address] [place] [address] Eosinophils/100 WBC (Bld) 1.6 % Normal [facility] Comment on above: Performed By: #### Darlene GONSALEZ, BMP, , 2776-04 ####[facility] ([id number])[address], [address] [place] [address] Erythrocyte distribution width (RBC) [Ratio] 15.6 % High 11.5-15.0 [facility] Comment on above: Performed By: #### C WALLACE, BMP, , 2776-04 ####[facility] ([id number])[address], [address] [place] [address] Hematocrit (Bld) [Volume fraction] 30.7 % Low 35-47 [facility] Comment on above: Performed By: #### C WALLACE, BMP, , 2776-04 ####[facility] ([id number])[address], [address] [place] [address] Hemoglobin (Bld) [Mass/Vol] 9.7 g/dL Low 11.7-15.5 [facility] Comment on above: Performed By: #### C WALLACE, BMP, , 2776-04 ####[facility] ([id number])[address], [address] [place] [address] Lymphocytes (Bld) [#/Vol] 0.3 10*3/uL Low 1.0-3.5 [facility] Comment on above: Performed By: #### Darlene GONSALEZ, BMP, , 2776-04 ####[facility] ([id number])[address], [address], [place] [address] Lymphocytes/100 WBC (Bld) 3.2 % Normal [facility] Comment on above: Performed By: #### Darlene GONSALEZ, BMP, , 2776-04 ####[facility] ([id number])[address], [address], [place] [address] MCH (RBC) [Entitic mass] 31.5 pg Normal 27-34 [facility] Comment on above: Performed By: #### Darlene GONSALEZ, BMP, , 2776-04 ####[facility] ([id number])[address], [address] [place] [address] MCHC (RBC) [Mass/Vol] 31.6 g/dL Low 32-36 [facility] Comment on above: Performed By: #### C WALLACE, BMP, , 2776-04 ####[facility] ([id number])[address], [address] [place] [address] MCV (RBC) [Entitic vol] 99 fL Normal 80-100 [facility] Comment on above: Performed By: #### C WALLACE, BMP, , 2776-04 ####[facility] ([id number])[address], [address], [place] [address] Monocytes (Bld) [#/Vol] 0.6 10*3/uL Normal 0-0.9 [facility] Comment on above: Performed By: #### C WALLACE, BMP, , 2776-04 ####[facility] ([id number])[address], [address] [place] [address] Monocytes/100 WBC (Bld) 5.9 % Normal [facility] Comment on above: Performed By: #### Darlene GONSALEZ, BMP, , 2776-04 ####[facility] ([id number])[address], [address], [place] [address] Neutrophils/100 WBC (Bld) 88.9 % Normal [facility] Comment on above: Performed By: #### Darlene GONSALEZ, BMP, , 2776-04 ####[facility] ([id number])[address], [address], [place] [address] Platelet mean volume (Bld) [Entitic vol] 8.3 fL Normal 7-12 [facility] Comment on above: Performed By: #### Darlene GONSALEZ, BMP, , 2776-04 ####[facility] ([id number])[address], [address], [place] [address] Platelets (Bld) [#/Vol] 101 10*3/uL Low 150-450 [facility] Comment on above: Performed By: #### Darlene BCA, BMP, , 2776-04 ####[facility] ([id number])[address], [address], [place] [address] RBC COUNT 3.08 X10E12/L Low 3.80-5.20 [facility] Comment on above: Performed By: #### C WALLACE, BMP, , 2776-04 ####[facility] ([id number])[address], [address], [place] [address] WBC (Bld) [#/Vol] 10.2 10*3/uL Normal 4.0-11.0 [facility] Comment on above: Performed By: #### C BCA, BMP, , 2776-04 ####[facility] ([id number])[address], [address], [place] [address] ABSOLUTE BASOPHIL 0.0 X10E9/L Normal 0.0-0.2 [facility] Comment on above: Performed By: #### C BCA, BMP, , 2776-04 ####[facility] ([id number])[address], [address], [place] [address] ABSOLUTE NEUTROPHIL 6.3 X10E9/L Normal 1.5-6.6 [facility] Comment on above: Performed By: #### C BCA, BMP, , 2776-04 ####[facility] ([id number])[address], [address] [place] [address] Basophils/100 WBC (Bld) 0.5 % Normal [facility] Comment on above: Performed By: #### C BCA, BMP, , 2776-04 ####[facility] ([id number])[address], [address], [place] [address] Eosinophils (Bld) [#/Vol] 0.1 10*3/uL Normal 0.0-0.4 [facility] Comment on above: Performed By: #### C BCA, BMP, , 2776-04 ####[facility] ([id number])[address], [address], [place] [address] Eosinophils/100 WBC (Bld) 1.6 % Normal [facility] Comment on above: Performed By: #### C WALLACE, BMP, , 2776-04 ####[facility] ([id number])[address], [address], [place] [address] Erythrocyte distribution width (RBC) [Ratio] 15.7 % High 11.5-15.0 [facility] Comment on above: Performed By: #### C WALLACE, BMP, , 2776-04 ####[facility] ([id number])[address], [address] [place] [address] Hematocrit (Bld) [Volume fraction] 32.7 % Low 35-47 [facility] Comment on above: Performed By: #### Darlene GONSALEZ, BMP, , 2776-04 ####[facility] ([id number])[address], [address] [place] [address] Hemoglobin (Bld) [Mass/Vol] 10.6 g/dL Low 11.7-15.5 [facility] Comment on above: Performed By: #### Darlene GONSALEZ, BMP, , 2776-04 ####[facility] ([id number])[address] [address] Lymphocytes (Bld) [#/Vol] 0.3 10*3/uL Low 1.0-3.5 [facility] Comment on above: Performed By: #### C WALLACE, BMP, , 2776-04 ####[facility] ([id number])[address] [address] [place] [address] Lymphocytes/100 WBC (Bld) 4.9 % Normal [facility] Comment on above: Performed By: #### C WALLACE, BMP, , 2776-04 ####[facility] ([id number])[address], [address], [place] [address] MCH (RBC) [Entitic mass] 31.8 pg Normal 27-34 [facility] Comment on above: Performed By: #### C BCA, BMP, , 2776-04 ####[facility] ([id number])[address], [address], [place] [address] MCHC (RBC) [Mass/Vol] 32.4 g/dL Normal 32-36 [facility] Comment on above: Performed By: #### C BCA, BMP, , 2776-04 ####[facility] ([id number])[address], [address], [place] [address] MCV (RBC) [Entitic vol] 98 fL Normal 80-100 [facility] Comment on above: Performed By: #### C BCA, BMP, , 2776-04 ####[facility] ([id number])[address], [address], [place] [address] Monocytes (Bld) [#/Vol] 0.3 10*3/uL Normal 0-0.9 [facility] Comment on above: Performed By: #### C BCA, BMP, , 2776-04 ####[facility] ([id number])[address], [address] [place] [address] Monocytes/100 WBC (Bld) 4.5 % Normal [facility] Comment on above: Performed By: #### C BCA, BMP, , 2776-04 ####[facility] ([id number])[address], [address], [place] [address] Neutrophils/100 WBC (Bld) 88.5 % Normal [facility] Comment on above: Performed By: #### C BCA, BMP, , 2776-04 ####[facility] ([id number])[address] [address] Platelet mean volume (Bld) [Entitic vol] 8.3 fL Normal 7-12 [facility] Comment on above: Performed By: #### Darlene GONSALEZ, BMP, , 2776-04 ####[facility] ([id number])[address] [address] Platelets (Bld) [#/Vol] 94 10*3/uL Low 150-450 [facility] Comment on above: Performed By: #### Darlene GONSALEZ, BMP, , 2776-04 ####[facility] ([id number])[address] [address] RBC COUNT 3.33 X10E12/L Low 3.80-5.20 [facility] Comment on above: Performed By: #### Darlene GONSALEZ, BMP, , 2776-04 ####[facility] ([id number])[address] [address] WBC (Bld) [#/Vol] 7.1 10*3/uL Normal 4.0-11.0 [facility] Comment on above: Performed By: #### Darlene GONSALEZ, BMP, , 2776-04 ####[facility] ([id number])[address] [address] CBC auto differentialon 07-3 0-2023 Basophils (Bld) [#/Vol] 0.0 10*3/uL [facility] Basophils/100 WBC (Bld) 0.4 % [facility] Eosinophils (Bld) [#/Vol] 0.2 10*3/uL [facility] Eosinophils/100 WBC (Bld) 1.6 % [facility] Erythrocyte distribution width (RBC) [Ratio] 15.6 % High 11.5 - 15.0 % [facility] Hematocrit (Bld) [Volume fraction] 30.7 % Low 35 - 47 % [facility] Hemoglobin (Bld) [Mass/Vol] 9.7 g/dL Low 11.7 - 15.5 g/dL [facility] Interpretation and review of laboratory results Abnormal [facility] Lymphocytes (Bld) [#/Vol] 0.3 10*3/uL Low [facility] Lymphocytes/100 WBC (Bld) 3.2 % [facility] MCH (RBC) [Entitic mass] 31.5 pg 27 - 34 pg [facility] MCHC (RBC) [Mass/Vol] 31.6 g/dL Low 32 - 36 g/dL [facility] MCV (RBC) [Entitic vol] 99 fL 80 - 100 fL [facility] Monocytes (Bld) [#/Vol] 0.6 10*3/uL [facility] Monocytes/100 WBC (Bld) 5.9 % [facility] Neutrophils (Bld) [#/Vol] 9.0 10*3/uL High [facility] Neutrophils/100 WBC (Bld) 88.9 % [facility] Platelet mean volume (Bld) [Entitic vol] 8.3 fL 7 - 12 fL [facility] Platelets (Bld) [#/Vol] 101 10*3/uL Low [facility] RBC (Bld) [#/Vol] 3.08 10*6/uL Low [facility] WBC corrected for nucl RBC Auto (Bld) [#/Vol] 10.2 [facility] Basophils (Bld) [#/Vol] 0.0 10*3/uL [facility] Basophils/100 WBC (Bld) 0.5 % [facility] Eosinophils (Bld) [#/Vol] 0.1 10*3/uL [facility] Eosinophils/100 WBC (Bld) 1.6 % [facility] Erythrocyte distribution width (RBC) [Ratio] 15.7 % High 11.5 - 15.0 % [facility] Hematocrit (Bld) [Volume fraction] 32.7 % Low 35 - 47 % [facility] Hemoglobin (Bld) [Mass/Vol] 10.6 g/dL Low 11.7 - 15.5 g/dL [facility] Interpretation and review of laboratory results Abnormal [facility] Lymphocytes (Bld) [#/Vol] 0.3 10*3/uL Low [facility] Lymphocytes/100 WBC (Bld) 4.9 % [facility] MCH (RBC) [Entitic mass] 31.8 pg 27 - 34 pg [facility] MCHC (RBC) [Mass/Vol] 32.4 g/dL 32 - 36 g/dL [facility] MCV (RBC) [Entitic vol] 98 fL 80 - 100 fL [facility] Monocytes (Bld) [#/Vol] 0.3 10*3/uL [facility] Monocytes/100 WBC (Bld) 4.5 % [facility] Neutrophils (Bld) [#/Vol] 6.3 10*3/uL [facility] Neutrophils/100 WBC (Bld) 88.5 % [facility] Platelet mean volume (Bld) [Entitic vol] 8.3 fL 7 - 12 fL [facility] Platelets (Bld) [#/Vol] 94 10*3/uL Low [facility] RBC (Bld) [#/Vol] 3.33 10*6/uL Low [facility] WBC corrected for nucl RBC Auto (Bld) [#/Vol] 7.1 [facility] Calcium.ionized (Bld) [Mass/ Vol]on 11-08-2023 [facility] IONIZED CALCIUM 4.7 mg/dL Normal 4.5-5.3 [facility] Comment on above: Performed By: #### 3 8230-9 ####[facility] ([id number])[address] [place] [address], [address] [place] [address] Glucose Glucometer (BldC) [M ass/Vol]on 11-08-2023 Glucose [Mass/Vol] 159 mg/dL High 65 - 99 mg/dL [facility] Interpretation and review of laboratory results Abnormal [facility] Glucose [Mass/Vol] 159 mg/dL High 65-99 [facility] Glucose [Mass/Vol] 205 mg/dL High 65 - 99 mg/dL [facility] Interpretation and review of laboratory results Abnormal [facility] Glucose [Mass/Vol] 205 mg/dL High 65-99 [facility] Glucose [Mass/Vol] 149 mg/dL High 65 - 99 mg/dL [facility] Interpretation and review of laboratory results Abnormal [facility] Glucose [Mass/Vol] 149 mg/dL High 65-99 [facility] Glucose [Mass/Vol] 187 mg/dL High 65 - 99 mg/dL [facility] Interpretation and review of laboratory results Abnormal [facility] Glucose [Mass/Vol] 187 mg/dL High 65-99 [facility] Ionized calciumon 11-08-2023 Calcium.ionized (Bld) [Mass/Vol] 4.7 mg/dL 4.5 - 5.3 mg/dL [facility] MAGNESIUMon 11-08-2023 Magnesium [Mass/Vol] 2.3 mg/dL Normal 1.8-2.6 [facility] Comment on above: Performed By: #### C ELIZABETH GONSALEZ, 76631-3, 2777-1 ####[facility] ([id number])2130 [facility], [address] [address] Magnesium [Mass/Vol] 1.7 mg/dL Low 1.8-2.6 [facility] Comment on above: Performed By: #### C ELIZABETH GONSALEZ, 07380-4, 2777-1 ####[facility] ([id number])2130 [facility], [address] [place] [address] Magnesiumon 11-08-2023 Magnesium [Mass/Vol] 2.3 mg/dL 1.8 - 2 .6 mg/dL [facility] Magnesium [Mass/Vol] 1.7 mg/dL Low 1.8 - 2 .6 mg/dL [facility] No Panel Informationon 11-07 Interpretation and review of laboratory results Abnormal [facility] Interpretation and review of laboratory results Abnormal [facility] PHOSPHORUSon 11-08-2023 Phosphate [Mass/Vol] 5.1 mg/dL High 2.4-4.9 [facility] Comment on above: Performed By: #### C BCA, BMP, 37676-0, 2777-1 ####[facility] ([id number])[address], [address], [place] [address] Phosphate [Mass/Vol] 4.7 mg/dL Normal 2.4-4.9 [facility] Comment on above: Performed By: #### C BCA, BMP, , 2777-1 ####[facility] ([id number])[address], [address], [place] [address] Phosphoruson 11-08-2023 Phosphate [Mass/Vol] 5.1 mg/dL High 2.4 - 4 .9 mg/dL [facility] Phosphate [Mass/Vol] 4.7 mg/dL 2.4 - 4 .9 mg/dL [facility] X-ray abdomen NG Tube placem ent 1 viewon 11-08-2023 XR ABD NG TUBE PLACEMENT 1 VIEW Clinical history:ng verification enteric catheter placement and verification Comparison: 11/07/2023 Findings: Evaluation is compromised by diminished penetration related to body habitus and portable technique. Enteric catheter tip appears to extend to the level of the proximal to mid stomach. Impression: Enteric catheter extends to the level of the proximal to mid stomach. Finalized by Mirtha Renteria MD on 11/08/2023 5:12 AM [facility] MD - 11/08/2023 XR ABD NG TUBE PLACEMENT 1 VIEW Clinical history:ng verification enteric catheter placement and verification Comparison: 11/07/2023 Findings: Evaluation is compromised by diminished penetration related to body habitus and portable technique. Enteric catheter tip appears to extend to the level of the proximal to mid stomach. Impression: Enteric catheter extends to the level of the proximal to mid stomach. Finalized by Mirtha Rentreia MD on 11/08/2023 5:12 AM [facility] Radiology Study observation (narrative) [facility] XR ABD NG TUBE PLACEMENT 1 V IEWon 11-08-2023 XR ABD NG TUBE PLACEMENT 1 VIEW Normal [facility] XR FEMUR LT 2+ VIEWSon 11-07 XR FEMUR LT 2+ VIEWS Normal [facility] XR Femur - left 2 Viewson XR FEMUR LT 2+ VIEWS INDICATION: Fracture, pain FINDINGS: Intraoperative fluoroscopy for ORIF of the left femur. No radiologist present during the examination. Reference Air Kerma = 6 mGy Fluoroscopy time: 54 seconds Saved images: 1 IMPRESSION: Intraoperative fluoroscopy provided as above. See operative report for additional details. Finalized by Bull Herr on 11/08/2023 4:57 PM Bull Pizano MD - 11/08/2023 XR FEMUR LT 2+ VIEWS INDICATION: Fracture, pain FINDINGS: Intraoperative fluoroscopy for ORIF of the left femur. No radiologist present during the examination. Reference Air Kerma = 6 mGy Fluoroscopy time: 54 seconds Saved images: 1 IMPRESSION: Intraoperative fluoroscopy provided as above. See operative report for additional details. Finalized by Bull Herr on 11/08/2023 4:57 PM [facility] Radiology Study observation (narrative) [facility] XR Femur - left 2 ViewsOrder ed By: Bull Herr on 11-08-2023 [facility] Work Phone: ABO Rh Repeaton 11-07-2023 ABO O [facility] Rh Nom (Bld) Positive [facility] AMYLASEon 11-07-2023 Amylase [Catalytic activity/Vol] 25 U/L Low 28-100 [facility] Comment on above: Performed By: #### 4 8664-7, PINR, 72813-7, 5643-2, 1798-8, CMP, CBCA ####[facility] ([id number])[address], [address] [place] [address] APTTon 11-07-2023 aPTT Coag (PPP) [Time] 33 s [facility] Amylaseon 11-07-2023 Amylase [Catalytic activity/Vol] 25 U/L Low 28 - 100 U/L [facility] BASIC METABOLIC PANLon 11-06 Anion gap [Moles/Vol] 16 mmol/L High 5-15 [facility] Comment on above: Performed By: #### C BCA, BMP, PINR, 12380-0, 09544-6 #### [facility] ([id number]) [address] [place] [address] Calcium [Mass/Vol] 8.5 mg/dL Normal 8.5-10.5 [facility] Comment on above: Performed By: #### C BCA, BMP, PINR, 35261-8, 97671-0 #### [facility] ([id number]) [address] [place] [address] Chloride [Moles/Vol] 89 mmol/L Low 98-109 [facility] Comment on above: Performed By: #### C BCA, BMP, PINR, 08145-4, 72513-2 #### [facility] ([id number]) [address] [place] [address]802 CO2 [Moles/Vol] 22 mmol/L Normal 22-32 [facility] Comment on above: Performed By: #### C BCA, BMP, PINR, 91663-4, 59661-6 #### [facility] ([id number]) [address] [place] [address] Creatinine [Mass/Vol] 5.72 mg/dL High 0.40-1.00 [facility] Comment on above: Result Comment: METH OD TRACEABLE TO IDMS STANDARD Performed By: #### C BCA, BMP, PINR, 47671-2, 82988-7 #### [facility] ([id number]) [address] [place] [address] GFR/1.73 sq M.predicted among non-blacks MDRD (S/P/Bld) [Vol rate/Area] 8 mL/min/{1.73_m2} Low >59 [facility] Comment on above: Result Comment: Reported eGFR is based on the CKD-EPI 2020 equation that does not use a race coefficient. Performed By: #### C BCA, BMP, PINR, 27396-4, #### [facility] ([id number]) [address] [place] [address] Glucose [Mass/Vol] 255 mg/dL High 65-99 [facility] Comment on above: Performed By: #### C BCA, BMP, PINR, 00254-3, #### [facility] ([id number]) [address] [place] [address] Potassium [Moles/Vol] 5.7 mmol/L High 3.5-5.0 [facility] Comment on above: Performed By: #### C BCA, BMP, PINR, , #### [facility] ([id number]) [address] [place] [address] Sodium [Moles/Vol] 127 mmol/L Low 134-146 [facility] Comment on above: Performed By: #### C BCA, BMP, PINR, 68299-8, 93955-1 #### [facility] ([id number]) [address] [place] [address] 10678 Urea nitrogen [Mass/Vol] 78 mg/dL High 5-23 [facility] Comment on above: Performed By: #### C BCA, BMP, PINR, 62307-2, #### [facility] ([id number]) [address] [place] [address] CBC AND AUTO DIFFon 11-07-19 24 ABSOLUTE BASOPHIL 0.0 X10E9/L Normal 0.0-0.2 [facility] Comment on above: Performed By: #### C MP, , 2776-, CBCA, 3-8, 5195-1 ####[facility] ([id number])[address], [address] [place] [address] ABSOLUTE NEUTROPHIL 5.6 X10E9/L Normal 1.5-6.6 [facility] Comment on above: Performed By: #### C MP, , 2776-, CBCA, 3-8, 5195-1 ####[facility] ([id number])[address], [address] [place] [address] Basophils/100 WBC (Bld) 0.5 % Normal [facility] Comment on above: Performed By: #### C KERI, , 2776-04, CBCA, 5192-8, 519- ####[facility] ([id number])[address] [address] [place] [address] Eosinophils (Bld) [#/Vol] 0.1 10*3/uL Normal 0.0-0.4 [facility] Comment on above: Performed By: #### C KERI, , 2776-04, CBCA, 5192-8, 5195- ####[facility] ([id number])[address] [address] [place] [address] Eosinophils/100 WBC (Bld) 1.4 % Normal [facility] Comment on above: Performed By: #### C MP, , 2776-04, CBCA, 3-8, 519-1 ####[facility] ([id number])[address] [address] [place] [address] Erythrocyte distribution width (RBC) [Ratio] 15.5 % High 11.5-15.0 [facility] Comment on above: Performed By: #### C MP, , 2776-, CBCA, 3-8, 6-1 ####[facility] ([id number])[address], [address] [place] [address] Hematocrit (Bld) [Volume fraction] 33.2 % Low 35-47 [facility] Comment on above: Performed By: #### C KERI, , 2776-04, CBCA, 5192-8, 519-1 ####[facility] ([id number])[address], [address] [place] [address] Hemoglobin (Bld) [Mass/Vol] 10.9 g/dL Low 11.7-15.5 [facility] Comment on above: Performed By: #### C KERI, , 2776-04, CBCA, 5192-, 519- ####[facility] ([id number])[address], [address] [place] [address]689 Lymphocytes (Bld) [#/Vol] 0.3 10*3/uL Low 1.0-3.5 [facility] Comment on above: Performed By: #### C KERI, , 2776-04, CBCA, 5192-, 519- ####[facility] ([id number])[address] [address] [place] [address]14[address] Lymphocytes/100 WBC (Bld) 5.1 % Normal [facility] Comment on above: Performed By: #### C KERI, , 2776-04, CBCA, 5192-8, 519- ####[facility] ([id number])[address] [address] [place] [address]41 MCH (RBC) [Entitic mass] 32.0 pg Normal 27-34 [facility] Comment on above: Performed By: #### C KERI, , 2776-04, CBCA, 5192-8, 519-1 ####[facility] ([id number])[address], [address], [place] [address] MCHC (RBC) [Mass/Vol] 32.9 g/dL Normal 32-36 [facility] Comment on above: Performed By: #### C KERI, 29787-1, 2776-, CBCA, 5193-8, 6-1 ####[facility] ([id number])[address], [address] [place] [address] MCV (RBC) [Entitic vol] 97 fL Normal 80-100 [facility] Comment on above: Performed By: #### C KERI, , 2776-, CBCA, 5192-8, 519- ####[facility] ([id number])[address] [address] [place] [address] 93753 Monocytes (Bld) [#/Vol] 0.3 10*3/uL Normal 0-0.9 [facility] Comment on above: Performed By: #### C KERI, , 2776-04, CBCA, 519-8, 519-1 ####[facility] ([id number])[address] [address] [place] [address] 58981 Monocytes/100 WBC (Bld) 4.7 % Normal [facility] Comment on above: Performed By: #### C KERI, , 2776-04, CBCA, 5192-8, 519-1 ####[facility] ([id number])[address] [address] [place] [address] 52342 Neutrophils/100 WBC (Bld) 88.3 % Normal [facility] Comment on above: Performed By: #### C KERI, , 2776-, CBCA, 5193-8, 519-1 ####[facility] ([id number])[address], [address], [place] [address] Platelet mean volume (Bld) [Entitic vol] 8.3 fL Normal 7-12 [facility] Comment on above: Performed By: #### [place], 24402-6, 2776-1, CBCA, 5193-8, 5196-1 ####[facility] ([id number])[address], [address] [place] [address] Platelets (Bld) [#/Vol] 91 10*3/uL Low 150-450 [facility] Comment on above: Performed By: #### C MP, 96546-2, 2776-, CBCA, 5193-8, 5196-1 ####[facility] ([id number])[address], [address] [place] [address] RBC COUNT 3.42 X10E12/L Low 3.80-5.20 [facility] Comment on above: Performed By: #### C MP, , 2776-, CBCA, 5193-8, 5196-1 ####[facility] ([id number])[address], [address], [place] [address] WBC (Bld) [#/Vol] 6.3 10*3/uL Normal 4.0-11.0 [facility] Comment on above: Performed By: #### C MP, 23410-6, 2776-, CBCA, 5193-8, 5196-1 ####[facility] ([id number])[address], [address], [place] [address] ABSOLUTE BASOPHIL 0.0 X10E9/L Normal 0.0-0.2 [facility] Comment on above: Performed By: #### 4 8664-7, PINR, 72678-4, 5643-2, 1798-8, CMP, CBCA ####[facility] ([id number])[address], [address] [place] [address] ABSOLUTE NEUTROPHIL 6.6 X10E9/L Normal 1.5-6.6 [facility] Comment on above: Performed By: #### 4 8664-7, PINR, 07931-1, 5643-2, 1798-8, CMP, CBCA ####[facility] ([id number])[address], [address], [place] [address] Basophils/100 WBC (Bld) 0.5 % Normal [facility] Comment on above: Performed By: #### 4 8664-7, PINR, 72603-2, 5643-2, 1797-8, CMP, CBCA ####[facility] ([id number])[address], [address], [place] [address] Eosinophils (Bld) [#/Vol] 0.1 10*3/uL Normal 0.0-0.4 [facility] Comment on above: Performed By: #### 4 8664-7, PINR, 71351-2, 5643-2, 1797-11, CMP, CBCA ####[facility] ([id number])[address] [address], [place] [address] Eosinophils/100 WBC (Bld) 1.9 % Normal [facility] Comment on above: Performed By: #### 4 8664-7, PINR, 39673-6, 5643-2, 1797-8, CMP, CBCA ####[facility] ([id number])[address] [address], [place] [address] Erythrocyte distribution width (RBC) [Ratio] 15.9 % High 11.5-15.0 [facility] Comment on above: Performed By: #### 4 8664-7, PINR, 10754-5, 5643-2, 1797-8, CMP, CBCA ####[facility] ([id number])[address], [address], [place] [address] Hematocrit (Bld) [Volume fraction] 34.4 % Low 35-47 [facility] Comment on above: Performed By: #### 4 8664-7, PINR, 75455-9, 5643-2, 1798-8, CMP, CBCA ####[facility] ([id number])[address], [address] [place] [address]166 Hemoglobin (Bld) [Mass/Vol] 11.5 g/dL Low 11.7-15.5 [facility] Comment on above: Performed By: #### 4 8664-7, PINR, 45833-3, 5643-2, 1798-8, CMP, CBCA ####[facility] ([id number])[address] [address] [place] [address]209 Lymphocytes (Bld) [#/Vol] 0.2 10*3/uL Low 1.0-3.5 [facility] Comment on above: Performed By: #### 4 8664-7, PINR, 92351-8, 5643-2, 1797-8, CMP, CBCA ####[facility] ([id number])[address] [address] [place] [address] 82622 Lymphocytes/100 WBC (Bld) 3.3 % Normal [facility] Comment on above: Performed By: #### 4 8664-7, PINR, 53953-4, 5643-2, 1797-8, CMP, CBCA ####[facility] ([id number])[address], [address] [place] [address] 19192 MCH (RBC) [Entitic mass] 32.6 pg Normal 27-34 [facility] Comment on above: Performed By: #### 4 8664-7, PINR, 56466-4, 5643-2, 1798-8, CMP, CBCA ####[facility] ([id number])[address], [address] [place] [address] 09907 MCHC (RBC) [Mass/Vol] 33.5 g/dL Normal 32-36 [facility] Comment on above: Performed By: #### 4 8664-7, PINR, 83371-0, 5643-2, 1798-8, CMP, CBCA ####[facility] ([id number])[address], [address] [place] [address] 03197 MCV (RBC) [Entitic vol] 97 fL Normal 80-100 [facility] Comment on above: Performed By: #### 4 8664-7, PINR, 40105-5, 5643-2, 1797-8, CMP, CBCA ####[facility] ([id number])[address] [address] [place] [address] 03074 Monocytes (Bld) [#/Vol] 0.4 10*3/uL Normal 0-0.9 [facility] Comment on above: Performed By: #### 4 8664-7, PINR, 87997-2, 5643-2, 1797-8, CMP, CBCA ####[facility] ([id number])[address] [address] [place] [address] 37253 Monocytes/100 WBC (Bld) 5.0 % Normal [facility] Comment on above: Performed By: #### 4 8664-7, PINR, 97318-5, 5643-2, 1797-8, CMP, CBCA ####[facility] ([id number])[address] [address] [place] [address] 71519 Neutrophils/100 WBC (Bld) 89.3 % Normal [facility] Comment on above: Performed By: #### 4 8664-7, PINR, 79232-2, 5643-2, 1797-8, CMP, CBCA ####[facility] ([id number])[address], [address] [place] [address] 82385 Platelet mean volume (Bld) [Entitic vol] 8.5 fL Normal 7-12 [facility] Comment on above: Performed By: #### 4 8664-7, PINR, 25427-4, 5643-2, 1798-8, CMP, CBCA ####[facility] ([id number])[address], [address] [place] [address] 44869 Platelets (Bld) [#/Vol] 90 10*3/uL Low 150-450 [facility] Comment on above: Performed By: #### 4 8664-7, PINR, 44406-1, 5643-2, 1797-8, CMP, CBCA ####[facility] ([id number])[address], [address] [place] [address] 54133 RBC COUNT 3.54 X10E12/L Low 3.80-5.20 [facility] Comment on above: Performed By: #### 4 8664-7, PINR, 82166-5, 5643-2, 1797-8, CMP, CBCA ####[facility] ([id number])[address], [address] [place] [address] 53376 WBC (Bld) [#/Vol] 7.4 10*3/uL Normal 4.0-11.0 [facility] Comment on above: Performed By: #### 4 8664-7, PINR, 29334-9, 5643-2, 1797-8, CMP, CBCA ####[facility] ([id number])[address] [address] ABSOLUTE BASOPHIL 0.1 X10E9/L Normal 0.0-0.2 [facility] Comment on above: Performed By: #### C BCA, BMP, PINR, 26149-4, 23946-6 #### [facility] ([id number]) [address] [place] [address], [place] [address] ABSOLUTE NEUTROPHIL 6.4 X10E9/L Normal 1.5-6.6 [facility] Comment on above: Performed By: #### C BCA, BMP, PINR, 33216-1, #### [facility] ([id number]) [address] [place] [address] 44789 Basophils/100 WBC (Bld) 0.8 % Normal [facility] Comment on above: Performed By: #### C BCA, BMP, PINR, , 82930-0 #### [facility] ([id number]) [address] [place] [address] 07884 Eosinophils (Bld) [#/Vol] 0.2 10*3/uL Normal 0.0-0.4 [facility] Comment on above: Performed By: #### C BCA, BMP, PINR, , #### [facility] ([id number]) [address] [place] [address] 03006 Eosinophils/100 WBC (Bld) 2.0 % Normal [facility] Comment on above: Performed By: #### C BCA, BMP, PINR, , #### [facility] ([id number]) [address] [place] [address] 04759 Erythrocyte distribution width (RBC) [Ratio] 15.9 % High 11.5-15.0 [facility] Comment on above: Performed By: #### C BCA, BMP, PINR, , #### [facility] ([id number]) [address] [place] [address] 88527 Hematocrit (Bld) [Volume fraction] 35.4 % Normal 35-47 [facility] Comment on above: Performed By: #### C BCA, BMP, PINR, 25816-0, #### [facility] ([id number]) [address] [place] [address] 83798 Hemoglobin (Bld) [Mass/Vol] 11.4 g/dL Low 11.7-15.5 [facility] Comment on above: Performed By: #### C BCA, BMP, PINR, 05871-5, 09700-5 #### [facility] ([id number]) [address] [place] [address] 38369 Lymphocytes (Bld) [#/Vol] 0.5 10*3/uL Low 1.0-3.5 [facility] Comment on above: Performed By: #### C BCA, BMP, PINR, , #### [facility] ([id number]) [address] [place] [address] 49434 Lymphocytes/100 WBC (Bld) 6.9 % Normal [facility] Comment on above: Performed By: #### C BCA, BMP, PINR, , #### [facility] ([id number]) [address] [place] [address] 49934 MCH (RBC) [Entitic mass] 31.7 pg Normal 27-34 [facility] Comment on above: Performed By: #### C BCA, BMP, PINR, 64509-7, #### [facility] ([id number]) [address] [place] [address] 68558 MCHC (RBC) [Mass/Vol] 32.2 g/dL Normal 32-36 [facility] Comment on above: Performed By: #### C BCA, BMP, PINR, , #### [facility] ([id number]) [address] [place] [address] 19554 MCV (RBC) [Entitic vol] 98 fL Normal 80-100 [facility] Comment on above: Performed By: #### C BCA, BMP, PINR, , 46807-5 #### [facility] ([id number]) [address] [place] [address] 24576 Monocytes (Bld) [#/Vol] 0.5 10*3/uL Normal 0-0.9 [facility] Comment on above: Performed By: #### C BCA, BMP, PINR, 59993-1, #### [facility] ([id number]) [address] [place] [address] 40623 Monocytes/100 WBC (Bld) 6.2 % Normal [facility] Comment on above: Performed By: #### C BCA, BMP, PINR, 83894-5, #### [facility] ([id number]) [address] [place] [address] 63801 Neutrophils/100 WBC (Bld) 84.1 % Normal [facility] Comment on above: Performed By: #### C BCA, BMP, PINR, 52205-7, #### [facility] ([id number]) [address] [place] [address] 86607 Platelet mean volume (Bld) [Entitic vol] 8.2 fL Normal 7-12 [facility] Comment on above: Performed By: #### C BCA, BMP, PINR, 10840-9, #### [facility] ([id number]) [address] [place] [address] 67459 Platelets (Bld) [#/Vol] 105 10*3/uL Low 150-450 [facility] Comment on above: Performed By: #### C BCA, BMP, PINR, 55597-4, #### [facility] ([id number]) [address] [place] [address] 24647 RBC COUNT 3.60 X10E12/L Low 3.80-5.20 [facility] Comment on above: Performed By: #### C BCA, BMP, PINR, 72243-9, #### [facility] ([id number]) [address] [place] [address] 29742 WBC (Bld) [#/Vol] 7.7 10*3/uL Normal 4.0-11.0 [facility] Comment on above: Performed By: #### C WALLACE, ELIZABETH, PINR, 09040-5, 63266-7 #### [facility] ([id number]) [address] [facility], [place] [address] CBC auto differentialon 10-10 Basophils (Bld) [#/Vol] 0.0 10*3/uL [facility] Basophils/100 WBC (Bld) 0.5 % [facility] Eosinophils (Bld) [#/Vol] 0.1 10*3/uL [facility] Eosinophils/100 WBC (Bld) 1.4 % [facility] Erythrocyte distribution width (RBC) [Ratio] 15.5 % High 11.5 - 15.0 % [facility] Hematocrit (Bld) [Volume fraction] 33.2 % Low 35 - 47 % [facility] Hemoglobin (Bld) [Mass/Vol] 10.9 g/dL Low 11.7 - 15.5 g/dL [facility] Interpretation and review of laboratory results Abnormal [facility] Lymphocytes (Bld) [#/Vol] 0.3 10*3/uL Low [facility] Lymphocytes/100 WBC (Bld) 5.1 % [facility] MCH (RBC) [Entitic mass] 32.0 pg 27 - 34 pg [facility] MCHC (RBC) [Mass/Vol] 32.9 g/dL 32 - 36 g/dL [facility] MCV (RBC) [Entitic vol] 97 fL 80 - 100 fL [facility] Monocytes (Bld) [#/Vol] 0.3 10*3/uL [facility] Monocytes/100 WBC (Bld) 4.7 % [facility] Neutrophils (Bld) [#/Vol] 5.6 10*3/uL [facility] Neutrophils/100 WBC (Bld) 88.3 % [facility] Platelet mean volume (Bld) [Entitic vol] 8.3 fL 7 - 12 fL [facility] Platelets (Bld) [#/Vol] 91 10*3/uL Low [facility] RBC (Bld) [#/Vol] 3.42 10*6/uL Low [facility] WBC corrected for nucl RBC Auto (Bld) [#/Vol] 6.3 [facility] Basophils (Bld) [#/Vol] 0.0 10*3/uL [facility] Basophils/100 WBC (Bld) 0.5 % [facility] Eosinophils (Bld) [#/Vol] 0.1 10*3/uL [facility] Eosinophils/100 WBC (Bld) 1.9 % [facility] Erythrocyte distribution width (RBC) [Ratio] 15.9 % High 11.5 - 15.0 % [facility] Hematocrit (Bld) [Volume fraction] 34.4 % Low 35 - 47 % [facility] Hemoglobin (Bld) [Mass/Vol] 11.5 g/dL Low 11.7 - 15.5 g/dL [facility] Interpretation and review of laboratory results Abnormal [facility] Lymphocytes (Bld) [#/Vol] 0.2 10*3/uL Low [facility] Lymphocytes/100 WBC (Bld) 3.3 % [facility] MCH (RBC) [Entitic mass] 32.6 pg 27 - 34 pg [facility] MCHC (RBC) [Mass/Vol] 33.5 g/dL 32 - 36 g/dL [facility] MCV (RBC) [Entitic vol] 97 fL 80 - 100 fL [facility] Monocytes (Bld) [#/Vol] 0.4 10*3/uL [facility] Monocytes/100 WBC (Bld) 5.0 % [facility] Neutrophils (Bld) [#/Vol] 6.6 10*3/uL [facility] Neutrophils/100 WBC (Bld) 89.3 % [facility] Platelet mean volume (Bld) [Entitic vol] 8.5 fL 7 - 12 fL [facility] Platelets (Bld) [#/Vol] 90 10*3/uL Low [facility] RBC (Bld) [#/Vol] 3.54 10*6/uL Low [facility] WBC corrected for nucl RBC Auto (Bld) [#/Vol] 7.4 [facility] COMPREHENSIVE METABOLIC PANE Anibal 11-07-2023 Albumin [Mass/Vol] 3.8 g/dL Normal 3.2-5.3 [facility] Comment on above: Performed By: #### C KERI, 55608-8, 2776-1, CBCA, 5193-8, 5196-1 ####[facility] ([id number])[address], [address] [place] [address] ALP [Catalytic activity/Vol] 182 U/L High 39-130 [facility] Comment on above: Performed By: #### C KERI, 82759-8, 2776-1, CBCA, 5193-8, 5196-1 ####[facility] ([id number])[address], [address] [place] [address] ALT [Catalytic activity/Vol] 15 U/L Normal 0-31 [facility] Comment on above: Performed By: #### C KERI, 14101-6, 2776-1, CBCA, 5193-8, 5196-1 ####[facility] ([id number])[address], [address], [place] [address] Anion gap [Moles/Vol] 15 mmol/L Normal 5-15 [facility] Comment on above: Performed By: #### C KERI, 08674-7, 2776-1, CBCA, 5193-8, 5196-1 ####[facility] ([id number])[address], [address] [place] [address] AST [Catalytic activity/Vol] 11 U/L Normal 0-41 [facility] Comment on above: Performed By: #### C KERI, 11117-9, 2776-1, CBCA, 5193-8, 5196-1 ####[facility] ([id number])[address], [address], [place] [address] Bilirubin [Mass/Vol] 0.4 mg/dL Normal 0.3-1.2 [facility] Comment on above: Performed By: #### C KERI, , 2776-, CBCA, 5193-8, 5196-1 ####[facility] ([id number])[address], [address], [place] [address] Calcium [Mass/Vol] 9.1 mg/dL Normal 8.5-10.5 [facility] Comment on above: Performed By: #### C KERI, , 2776-04, CBCA, 3-8, 519-1 ####[facility] ([id number])[address], [address], [place] [address] Chloride [Moles/Vol] 92 mmol/L Low 98-109 [facility] Comment on above: Performed By: #### C KERI, , 2776-04, CBCA, 5193-8, 5196-1 ####[facility] ([id number])[address], [address], [place] [address] CO2 [Moles/Vol] 22 mmol/L Normal 22-32 [facility] Comment on above: Performed By: #### C KERI, , 2776-04, CBCA, 5193-8, 5196-1 ####[facility] ([id number])[address], [address], [place] [address] Creatinine [Mass/Vol] 5.26 mg/dL High 0.40-1.00 [facility] Comment on above: Result Comment: METH OD TRACEABLE TO IDMS STANDARD Performed By: #### C KERI, , 2776-, CBCA, 5193-8, 5196-1 ####[facility] ([id number])[address], [address], [place] [address] GFR/1.73 sq M.predicted among non-blacks MDRD (S/P/Bld) [Vol rate/Area] 9 mL/min/{1.73_m2} Low >59 [facility] Comment on above: Result Comment: Repo rted eGFR is based on theCKD-EPI 2020 equation that doesnot use a race coefficient. Performed By: #### C KERI, , 2776-, CBCA, 519-8, 519-1 ####[facility] ([id number])[address], [address], [place] [address] Glucose [Mass/Vol] 219 mg/dL High 65-99 [facility] Comment on above: Performed By: #### Darlene SAAVEDRA, , 2776-04, CBCManolo, 519-8, 519-1 ####[facility] ([id number])[address], [address], [place] [address] Potassium [Moles/Vol] 5.2 mmol/L High 3.5-5.0 [facility] Comment on above: Performed By: #### Darlene SAAVEDRA, , 2776-04, CBCA, 519-8, 519-1 ####[facility] ([id number])[address], [address], [place] [address] Protein [Mass/Vol] 7.0 g/dL Normal 6.0-8.0 [facility] Comment on above: Performed By: #### Darlene SAAVEDRA, , 2776-04, CBCA, 519-8, 519-1 ####[facility] ([id number])[address], [address], [place] [address] Sodium [Moles/Vol] 129 mmol/L Low 134-146 [facility] Comment on above: Performed By: #### Darlene SAAVEDRA, , 2776-, CBCA, 519-8, 519-1 ####[facility] ([id number])[address], [address], [place] [address] Urea nitrogen [Mass/Vol] 69 mg/dL High 5-23 [facility] Comment on above: Performed By: #### C MP, 97499-7, 2777-1, CBCA, 5193-8, 5196-1 ####[facility] ([id number])[address], [address], [place] [address] Albumin [Mass/Vol] 3.9 g/dL Normal 3.2-5.3 [facility] Comment on above: Performed By: #### 4 8664-7, PINR, 37628-8, 5643-2, 1798-8, CMP, CBCA ####[facility] ([id number])[address], [address], [place] [address] ALP [Catalytic activity/Vol] 210 U/L High 39-130 [facility] Comment on above: Performed By: #### 4 8664-7, PINR, 74388-6, 5643-2, 1798-8, CMP, CBCA ####[facility] ([id number])[address] [address] [place] [address] ALT [Catalytic activity/Vol] 18 U/L Normal 0-31 [facility] Comment on above: Performed By: #### 4 8664-7, PINR, 75836-7, 5643-2, 1798-8, CMP, CBCA ####[facility] ([id number])[address], [address] [place] [address] Anion gap [Moles/Vol] 15 mmol/L Normal 5-15 [facility] Comment on above: Performed By: #### 4 8664-7, PINR, 18487-2, 5643-2, 1798-8, CMP, CBCA ####[facility] ([id number])[address], [address] [place] [address] AST [Catalytic activity/Vol] 11 U/L Normal 0-41 [facility] Comment on above: Performed By: #### 4 8664-7, PINR, 26477-9, 5643-2, 8-8, CMP, CBCA ####[facility] ([id number])[address], [address] [place] [address] Bilirubin [Mass/Vol] 0.5 mg/dL Normal 0.3-1.2 [facility] Comment on above: Performed By: #### 4 8664-7, PINR, 70733-9, 5643-2, 1797-8, CMP, CBCA ####[facility] ([id number])[address], [address] [place] [address] Calcium [Mass/Vol] 8.9 mg/dL Normal 8.5-10.5 [facility] Comment on above: Performed By: #### 4 8664-7, PINR, 06995-4, 5643-2, 1797-11, CMP, CBCA ####[facility] ([id number])[address], [address] [place] [address] Chloride [Moles/Vol] 91 mmol/L Low 98-109 [facility] Comment on above: Performed By: #### 4 8664-7, PINR, 65267-3, 5643-2, 1797-8, CMP, CBCA ####[facility] ([id number])[address], [address] [place] [address] CO2 [Moles/Vol] 22 mmol/L Normal 22-32 [facility] Comment on above: Performed By: #### 4 8664-7, PINR, 31966-9, 5643-2, 1797-8, CMP, CBCA ####[facility] ([id number])[address], [address], [place] [address] Creatinine [Mass/Vol] 5.85 mg/dL High 0.40-1.00 [facility] Comment on above: Result Comment: METH OD TRACEABLE TO IDMS STANDARD Performed By: #### 4 8664-7, PINR, 49999-4, 5643-2, 1797-8, CMP, CBCA ####[facility] ([id number])[address] [address] GFR/1.73 sq M.predicted among non-blacks MDRD (S/P/Bld) [Vol rate/Area] 8 mL/min/{1.73_m2} Low >59 [facility] Comment on above: Result Comment: Repo rted eGFR is based on theCKD-EPI 2020 equation that doesnot use a race coefficient. Performed By: #### 4 8664-7, PINR, 83196-0, 5643-2, 1797-11, CMP, CBCA ####[facility] ([id number])[address], [address] [place] [address] Glucose [Mass/Vol] 218 mg/dL High 65-99 [facility] Comment on above: Performed By: #### 4 8664-7, PINR, 85483-6, 5643-2, 1797-11, CMP, CBCA ####[facility] ([id number])[address] [address] Potassium [Moles/Vol] 5.7 mmol/L High 3.5-5.0 [facility] Comment on above: Performed By: #### 4 8664-7, PINR, 28398-2, 5643-2, 1797-8, CMP, CBCA ####[facility] ([id number])[address], [address] [place] [address] Protein [Mass/Vol] 7.4 g/dL Normal 6.0-8.0 [facility] Comment on above: Performed By: #### 4 8664-7, PINR, 22858-8, 5643-2, 1798-8, CMP, CBCA ####[facility] ([id number])[address], [address] [place] [address] Sodium [Moles/Vol] 128 mmol/L Low 134-146 [facility] Comment on above: Performed By: #### 4 8664-7, PINR, 56287-5, 5643-2, 1798-8, CMP, CBCA ####[facility] ([id number])[address], [address] [place] [address] Urea nitrogen [Mass/Vol] 74 mg/dL High 5-23 [facility] Comment on above: Performed By: #### 4 8664-7, PINR, 62639-2, 5643-2, 1798-8, CMP, CBCA ####[facility] ([id number])[address], [address] [place] [address] ABDOMEN AND PELVIS WO CON Ton 11-07-2023 CT ABDOMEN AND PELVIS WO CONT Normal [facility] CT Abdomen and Pelvis WO con traston 11-07-2023 CLINICAL INFORMATION : Abdominal trauma, blunt. Pain TECHNIQUE: CT Abdomen and Pelvis without intravenous contrast. All CT scans at this facility use dose modulation, iterative reconstruction, and/or weight based dosing when appropriate to reduce radiation dose to as low as reasonably achievable. COMPARISON: 10/25/2023. 01/20/2021 FINDINGS: Left lower lobe consolidation and atelectasis persists. There is no pneumoperitoneum on the visualized portions of the abdomen. Much of the left hemiabdomen including the anterior abdominal wall is not included on this imaging volume due to body habitus. Changes of cholecystectomy again noted. Given limitations of a noncontrast enhanced exam the liver, spleen, right adrenal gland and pancreas appear unremarkable. Limbs of the left adrenal gland remains somewhat thickened particularly the medial limb, however this is unchanged from prior exam dating back to 01/20/2021 favoring a nonaggressive etiology. Renal collecting systems and ureters are not dilated. Dense atherosclerotic aortoiliac and visceral vascular calcifications again seen. Gas-filled yet nondilated colon again noted in the upper abdomen with what appears to be descending colostomy, only partially imaged. Soft tissue stranding throughout the lower anterior abdominal wall and pelvis again noted suggesting cellulitis. There is no intraperitoneal nor retroperitoneal nor anterior abdominal wall drainable fluid collection/abscess. Bilobed shaped left adnexal fluid attenuation structure has been present since at least 01/20/2021 and likely represents a large ovarian cyst. No definite dilated loops of bowel to suggest bowel obstruction. IMPRESSION: 1. Redemonstration of extensive soft tissue stranding throughout the intra-abdominal wall/pelvis most consistent with cellulitis. No fluid collection/abscess. 2. Persistent nonspecific left lower lobe consolidation and atelectasis. 3. Persistent left adnexal cystic lesion. This has been present since at least 2020. Nonaggressive etiology, however it is still nonspecific. 4. No abdominal nor pelvic fluid collections. Finalized by Wander De La Cruz MD on 11/07/2023 4:15 PM [facility] Wander De La Cruz M D - 11/07/2023 CLINICAL INFORMATION: Abdominal trauma, blunt. Pain TECHNIQUE: CT Abdomen and Pelvis without intravenous contrast. All CT scans at this facility use dose modulation, iterative reconstruction, and/or weight based dosing when appropriate to reduce radiation dose to as low as reasonably achievable. COMPARISON: 10/25/2023. 01/20/2021 FINDINGS: Left lower lobe consolidation and atelectasis persists. There is no pneumoperitoneum on the visualized portions of the abdomen. Much of the left hemiabdomen including the anterior abdominal wall is not included on this imaging volume due to body habitus. Changes of cholecystectomy again noted. Given limitations of a noncontrast enhanced exam the liver, spleen, right adrenal gland and pancreas appear unremarkable. Limbs of the left adrenal gland remains somewhat thickened particularly the medial limb, however this is unchanged from prior exam dating back to 01/20/2021 favoring a nonaggressive etiology. Renal collecting systems and ureters are not dilated. Dense atherosclerotic aortoiliac and visceral vascular calcifications again seen. Gas-filled yet nondilated colon again noted in the upper abdomen with what appears to be descending colostomy, only partially imaged. Soft tissue stranding throughout the lower anterior abdominal wall and pelvis again noted suggesting cellulitis. There is no intraperitoneal nor retroperitoneal nor anterior abdominal wall drainable fluid collection/abscess. Bilobed shaped left adnexal fluid attenuation structure has been present since at least 01/20/2021 and likely represents a large ovarian cyst. No definite dilated loops of bowel to suggest bowel obstruction. IMPRESSION: 1. Redemonstration of extensive soft tissue stranding throughout the intra-abdominal wall/pelvis most consistent with cellulitis. No fluid collection/abscess. 2. Persistent nonspecific left lower lobe consolidation and atelectasis. 3. Persistent left adnexal cystic lesion. This has been present since at least 2020. Nonaggressive etiology, however it is still nonspecific. 4. No abdominal nor pelvic fluid collections. Finalized by Wander De La Cruz MD on 11/07/2023 4:15 PM [employer] Radiology Study observation (narrative) [employer] CT Abdomen and Pelvis WO con trastOrdered By: Wander De La Cruz on 11-07-2023 [employer] Work Phone: CT Chest WO contraston 11-06 Clinical history:Jose David nt chest trauma. CT chest without contrast:11/07/2023 Comparison: 03/21/2021 Procedure: Axial images were obtained through the chest without intravenous contrast. Coronal and sagittal reconstructions were performed. All CT scans at this facility use dose modulation, iterative reconstruction, and/or weight based dosing when appropriate to reduce radiation dose to as low as reasonably achievable. Findings: Evaluation is inhibited by body habitus. Patchy alveolar opacity and volume loss are present in the left lower lobe, the left upper lobe and the paramediastinal right lower lobe. There is no large pleural effusion or pneumothorax. The heart is enlarged with tracheostomy and central line in place. No acute mediastinal abnormality is present. There is no acute osseous abnormality within the thorax. IMPRESSION: Pulmonary infiltrates may reflect areas of atelectasis or pneumonia. Follow-up to resolution would be required to exclude an underlying abnormality. No definite posttraumatic abnormality within the chest. Finalized by Artur Pardo MD on 11/07/2023 4:23 PM [facility] Artur Pardo MD - 11/07/2023 Clinical history:Blunt chest trauma. CT chest without contrast:11/07/2023 Comparison: 03/21/2021 Procedure: Axial images were obtained through the chest without intravenous contrast. Coronal and sagittal reconstructions were performed. All CT scans at this facility use dose modulation, iterative reconstruction, and/or weight based dosing when appropriate to reduce radiation dose to as low as reasonably achievable. Findings: Evaluation is inhibited by body habitus. Patchy alveolar opacity and volume loss are present in the left lower lobe, the left upper lobe and the paramediastinal right lower lobe. There is no large pleural effusion or pneumothorax. The heart is enlarged with tracheostomy and central line in place. No acute mediastinal abnormality is present. There is no acute osseous abnormality within the thorax. IMPRESSION: Pulmonary infiltrates may reflect areas of atelectasis or pneumonia. Follow-up to resolution would be required to exclude an underlying abnormality. No definite posttraumatic abnormality within the chest. Finalized by Artur Pardo MD on 11/07/2023 4:23 PM [facility] Rad[facility] Study observation (narrative) [facility] CT Chest WO contrastOrdered By: Artur Pardo on 11-07-2023 [facility] Work Phone: CT KNEE LT WO CONTon 024 CT KNEE LT WO CONT Normal [facility] CT Knee - left WO contraston 11-07-2023 Clinical history: Kn ee trauma. Dislocation. CT left knee without contrast: 11/07/2023 COMPARISON: None PROCEDURE: Axial images were obtained through the knee. Coronal and sagittal reconstructions were performed. All CT scans at this facility use dose modulation, iterative reconstruction, and/or weight based dosing when appropriate to reduce radiation dose to as low as reasonably achievable FINDINGS: There is a comminuted distal femoral fracture which is difficult to characterize due to bone demineralization. This has a transverse component proximal to the condylar level with some impaction. Sagittal plane components appear to extend into the intercondylar region without definite disruption of articular surfaces at the medial and lateral condylar region. Soft tissue swelling is present around the knee with a large suprapatellar effusion/hemarthrosis. There is no patellar injury. The tibial plateau and proximal fibula appear within normal limits with generalized bone demineralization. There is edema within subcutaneous tissues throughout the knee. IMPRESSION: Comminuted distal femoral fracture with extension into the intercondylar portion of the knee. Finalized by Artur Pardo MD on 11/07/2023 4:46 PM [facility] Artur Pardo MD - 11/07/2023 Clinical history: Knee trauma. Dislocation. CT left knee without contrast: 11/07/2023 COMPARISON: None PROCEDURE: Axial images were obtained through the knee. Coronal and sagittal reconstructions were performed. All CT scans at this facility use dose modulation, iterative reconstruction, and/or weight based dosing when appropriate to reduce radiation dose to as low as reasonably achievable FINDINGS: There is a comminuted distal femoral fracture which is difficult to characterize due to bone demineralization. This has a transverse component proximal to the condylar level with some impaction. Sagittal plane components appear to extend into the intercondylar region without definite disruption of articular surfaces at the medial and lateral condylar region. Soft tissue swelling is present around the knee with a large suprapatellar effusion/hemarthrosis. There is no patellar injury. The tibial plateau and proximal fibula appear within normal limits with generalized bone demineralization. There is edema within subcutaneous tissues throughout the knee. IMPRESSION: Comminuted distal femoral fracture with extension into the intercondylar portion of the knee. Finalized by Artur Pardo MD on 11/07/2023 4:46 PM [facility] Radiology Study observation (narrative) [facility] Comprehensive metabolic pane anibal 11-07-2023 Albumin [Mass/Vol] 3.8 g/dL 3.2 - 5.3 g/dL [facility] ALP [Catalytic activity/Vol] 182 U/L High 39 - 130 U/L [facility] ALT No additional P-5'-P [Catalytic activity/Vol] 15 U/L 0 - 31 U/L [facility] Anion gap [Moles/Vol] 15 mmol/L 5 - 15 mmol/L [facility] AST [Catalytic activity/Vol] 11 U/L 0 - 41 U/L [facility] Bilirubin [Mass/Vol] 0.4 mg/dL 0.3 - 1 .2 mg/dL [facility] Calcium [Mass/Vol] 9.1 mg/dL 8.5 - 10. 5 mg/dL [facility] Chloride [Moles/Vol] 92 mmol/L Low 98 - 10 9 mmol/L [facility] CO2 [Moles/Vol] 22 mmol/L 22 - 32 mmol/L [facility] Creatinine [Mass/Vol] 5.26 mg/dL High 0.40 - 1.00 mg/dL [facility] Comment on above: METHOD TRACEABLE TO [facility] STANDARD eGFR (CKD-EPI)non-race dependent 9 Low - PINF [facility] Comment on above: Reported eGFR is based on the CKD-EPI 2020 equation that does not use a race coefficient. Glucose [Mass/Vol] 219 mg/dL High 65 - 99 mg/dL [facility] Potassium [Moles/Vol] 5.2 mmol/L High 3.5 - 5.0 mmol/L [facility] Protein [Mass/Vol] 7.0 g/dL 6.0 - 8.0 g/dL [facility] Sodium [Moles/Vol] 129 mmol/L Low 134 - 146 mmol/L [facility] Urea nitrogen [Mass/Vol] 69 mg/dL High 5 - 23 mg/dL [facility] Albumin [Mass/Vol] 3.9 g/dL 3.2 - 5.3 g/dL [facility] ALP [Catalytic activity/Vol] 210 U/L High 39 - 130 U/L [facility] ALT No additional P-5'-P [Catalytic activity/Vol] 18 U/L 0 - 31 U/L [facility] Anion gap [Moles/Vol] 15 mmol/L 5 - 15 mmol/L [facility] AST [Catalytic activity/Vol] 11 U/L 0 - 41 U/L [facility] Bilirubin [Mass/Vol] 0.5 mg/dL 0.3 - 1 .2 mg/dL [facility] Calcium [Mass/Vol] 8.9 mg/dL 8.5 - 10. 5 mg/dL [facility] Chloride [Moles/Vol] 91 mmol/L Low 98 - 10 9 mmol/L [facility] CO2 [Moles/Vol] 22 mmol/L 22 - 32 mmol/L [facility] Creatinine [Mass/Vol] 5.85 mg/dL High 0.40 - 1.00 mg/dL [facility] Comment on above: METHOD TRACEABLE TO IDAR STANDARD eGFR (CKD-EPI)non-race dependent 8 Low - PINF [facility] Comment on above: Reported eGFR is based on the CKD-EPI 2020 equation that does not use a race coefficient. Glucose [Mass/Vol] 218 mg/dL High 65 - 99 mg/dL [facility] Potassium [Moles/Vol] 5.7 mmol/L High 3.5 - 5.0 mmol/L [facility] Protein [Mass/Vol] 7.4 g/dL 6.0 - 8.0 g/dL [facility] Sodium [Moles/Vol] 128 mmol/L Low 134 - 146 mmol/L [facility] Urea nitrogen [Mass/Vol] 74 mg/dL High 5 - 23 mg/dL [facility] ETHANOLon 11-07-2023 Ethanol [Mass/Vol] mg/dL Normal 0.00-0.08 [facility] Comment on above: Result Comment: This report is intended for use in clinicalmonitoring or management of patients. Performed By: #### 4 8664-7, PINR, 85460-4, 5643-2, 1797-, CMP, CBCA ####[facility] ([id number])[address] [place] [address], [address] [place] [address] Ethanolon 11-07-2023 Ethanol [Mass/Vol] g/dL 0.00 - 0. 08 g/dL [facility] Comment on above: This report is intended for use in clinical monitoring or management of patients. Fibrinogenon 11-07-2023 Fibrinogen Coagulation.derived (PPP) [Mass/Vol] 677 mg/dL High 190 - 480 mg/dL [facility] Fibrinogen Coagulation.deriv ed (PPP) [Mass/Vol]on 11-07-2023 Interpretation and review of laboratory results Abnormal [facility] FIBRINOGEN 677 mg/dL High 190-480 [facility] Comment on above: Performed By: #### 4 8664-7, PINR, 03384-2, 5643-2, 1797-8, CMP, CBCA ####[facility] ([id number])[address] [facility], [address] [place] [address] Glucose Glucometer (BldC) [M ass/Vol]on 11-07-2023 Glucose [Mass/Vol] 182 mg/dL High 65 - 99 mg/dL [facility] Interpretation and review of laboratory results Abnormal [facility] Glucose [Mass/Vol] 182 mg/dL High 65-99 [facility] Glucose [Mass/Vol] 263 mg/dL High 65-99 [facility] HBV surface Ab IA Qnon 11-06 Anti HBs quant. <8.00 Normal [facility] Comment on above: Result Comment: Vacc inated: >=12mIU/mL, Positive (Immune)Unvaccinated: <8mIU/mL, Negative (Not Immune)8-11.99 mIU/mL: Indeterminate,(Considered Not Immune) Performed By: #### C KERI, 81625-4, 2777-1, CBCA, 5193-8, 5196-1 ####[facility] ([id number])[address] [facility], [address] [place] [address] HBV surface Ag IA Qlon 11-06 HEPATITIS B SURF AG Negative Normal NEG [facility] Comment on above: Performed By: #### C KERI, 30577-3, 2777-1, CBCA, 5193-8, 5196-1 ####[facility] ([id number])[facility]0 [facility], [address] [place] [address] Hemodialysis inpatienton Melani Haddad RN 11/07/2023 9:33 PM Pt completed 3 hr HD tx. Pt tolerated tx fairly. Pt was hypotensive during tx. Called Dr Díaz for tx of hypotension. ordered to not remove any additional fluid. Pt ran consistent at 350 BFR. No medications ordered or given during tx. BP 97/75 HR 117 Post tx wt 153 kg ( Bedscale not working at beginning of tx) Fluid removed. 1.3 L Report given to Primary RN. - Melani Haddad RN 11/07/23 9:[address] [facility] Hepatitis B Surface Antibody Quantitationon 11-07-2023 HBV surface Ab IA Qn mIU/mL [facility] Comment on above: Vaccinated: >=12mIU/ mL, Positive (Immune) Unvaccinated: <8mIU/mL, Negative (Not Immune) 8-11.99 mIU/mL: Indeterminate, (Considered Not Immune) Hepatitis B surface antigeno n 11-07-2023 HBV surface Ag IA Ql Negative Negativ e^Neg ative [facility] MAGNESIUMon 11-07-2023 Magnesium [Mass/Vol] 1.7 mg/dL Low 1.8-2.6 [facility] Comment on above: Performed By: #### [place], 28[address]-1, 2777-1, CBCA, 5193-8, 5196-1 ####[facility] ([id number])[address] [place] [address], [address] [place] [address] Magnesium [Mass/Vol] 1.8 mg/dL Normal 1.8-2.6 [facility] Comment on above: Performed By: #### C BCA, BMP, PINR, 73229-5, 49107-1 #### [facility] ([id number]) [address] [place] [address], [place] [address] Magnesiumon 11-07-2023 Magnesium [Mass/Vol] 1.7 mg/dL Low 1.8 - 2 .6 mg/dL [facility] No Panel Informationon 11-06 [facility] Interpretation and review of laboratory results Abnormal [facility] Interpretation and review of laboratory results Abnormal [facility] PHOSPHORUSon 11-07-2023 Phosphate [Mass/Vol] 5.4 mg/dL High 2.4-4.9 [facility] Comment on above: Performed By: #### C MP, 67910-7, 2777-1, CBCA, 5193-8, 5196-1 ####[facility] ([id number])[address], [address] [place] [address] PROTIME AND INRon 11-07-2023 INR Coag (PPP) [Relative time] 1.0 {INR} Normal 0.8-1.1 [facility] Comment on above: Performed By: #### 4 8664-7, PINR, 65469-1, 5643-2, 1798-8, CMP, CBCA ####[facility] ([id number])[address], [address] [place] [address] PT Coag (PPP) [Time] 11.7 s Normal 9.8-13.2 [facility] Comment on above: Performed By: #### 4 8664-7, PINR, 31807-6, 5643-2, 1798-8, CMP, CBCA ####[facility] ([id number])[address], [address], [place] [address] INR Coag (PPP) [Relative time] 1.0 {INR} Normal 0.8-1.1 [facility] Comment on above: Performed By: #### C BCA, BMP, PINR, 50888-2, 15020-6 #### [facility] ([id number]) [address] [place] [address] PT Coag (PPP) [Time] 12.2 s Normal 9.8-13.2 [facility] Comment on above: Result Comment: NEW REFERENCE RANGE Performed By: #### C BCA, BMP, PINR, 41939-9, 22731-6 #### [facility] ([id number]) [address] [place] [address] Phosphoruson 11-07-2023 Phosphate [Mass/Vol] 5.4 mg/dL High 2.4 - 4 .9 mg/dL [facility] Protime & INRon 11-07-2023 INR Coag (PPP) [Relative time] 1.0 {INR} [facility] PT Coag (PPP) [Time] 11.7 s [facility] Type and screen(includes ind irect andrzej)on 11-07-2023 ABO O [facility] Rh Nom (Bld) Positive [facility] URINE CULTUREon 11-07-2023 Bacteria identified Cx Nom (U) CULTURE RESULTS >100,000 ORGANISMS/mL ESCHERICHIA COLI >100,000 ORGANISMS/mL ESCHERICHIA COLI VARIANT 50,000 to 100,000 ORGANISMS/mL NORMAL URO GENITAL NADINE [ S = SUSCEPTIBLE R = RESISTANT I = INTERMEDIATE S-DO = Susceptible-dose dependent NS = Non-suscceptible NO = No Interpretation ] Organism: ESCHERICHIA COLI Antibiotic Interpretation JASON Status AMPICILLIN R >=32 F AMP/SULBACTAM R >=32/16 F CEFAZOLIN R >=64 F CEFTRIAXONE R >=64 F CIPROFLOXACIN R >=4 F GENTAMICIN R >=16 F LEVOFLOXACIN R >=8 F NITROFURANTOIN R 128 F PIPERACIL/TAZOBACTAM S 16 F TOBRAMYCIN R >=16 F TRIMETH/SULFAMETHOXAZO LE R >=16/304 F ESBL Test A F ESBL Test Organism produces an extended spectrum beta lactamase (ESBL). It may be clinically resistant to therapy with penicillins, cephalosporins, or aztreonam. Contact laboratory if further information is required. F ERTAPENEM S <=0.12 F [ S = SUSCEPTIBLE R = RESISTANT I = INTERMEDIATE S-DO = Susceptible-dose dependent NS = Non-suscceptible NO = No Interpretation ] Organism: ESCHERICHIA COLI Antibiotic Interpretation JASON Status AMPICILLIN R >=32 F AMP/SULBACTAM R >=32/16 F CEFAZOLIN R >=64 F CEFTRIAXONE R >=64 F CIPROFLOXACIN R >=4 F GENTAMICIN R >=16 F LEVOFLOXACIN R >=8 F NITROFURANTOIN R 128 F PIPERACIL/TAZOBACTAM S 16 F TOBRAMYCIN R >=16 F TRIMETH/SULFAMETHOXAZO LE R >=16/304 F ESBL Test A F ESBL Test Organism produces an extended spectrum beta lactamase (ESBL). It may be clinically resistant to therapy with penicillins, cephalosporins, or aztreonam. Contact laboratory if further information is required. F ERTAPENEM S <=0.12 F Susceptible [facility] Comment on above: Performed By: #### 2 157-6, CBCA #### [facility] ([id number]) [address] [facility], [place] [address] XR ABDOMEN AP 1 VWon 024 XR ABDOMEN AP 1 VW Normal [facility] XR Abdomen APon 11-07-2023 CLINICAL HISTORY: NG tube placement Comparison: None Views: 1 view FINDINGS: * NG tube courses well below the hemidiaphragm and likely within the body of stomach. IMPRESSION: * As above. Finalized by Margarito Bravo MD on 11/07/2023 5:51 PM Margarito Chairez MD - 11/07/2023 CLINICAL HISTORY: NG tube placement Comparison: None Views: 1 view FINDINGS: * NG tube courses well below the hemidiaphragm and likely within the body of stomach. IMPRESSION: * As above. Finalized by Margarito Bravo MD on 11/07/2023 5:51 PM [facility] Radiology Study observation (narrative) [facility] XR Abdomen APOrdered By: Devan Bravo on 11-07-2023 [facility] Work Phone: XR CHEST 1 VWon 11-07-2023 XR CHEST 1 VW Normal [facility] XR CHEST 1 VW XR CHEST 1 VW CHEST 1 VIEW HISTORY: Dialysis COMPARISON: 07/17/2023 IMPRESSION: * Stable tracheostomy tube and right-sided dialysis catheter. * Persistent extensive opacities throughout the left hemithorax with volume loss, similar to previous study. Right lung is clear. * Unable to evaluate cardiomediastinal silhouette due to significant abnormalities in the left hemithorax. Finalized by Bart Way MD on 11/07/2023 11:57 AM Normal [facility] XR Chest Single viewon 11-06 Single view chest History:chronic trach Difficulty breathing, shortness of breath Comparison: 11/07/2023 Findings: Single portable view of the chest. Stable tracheostomy. Enteric other signs of the stomach. Stable right jugular catheter. Mild vascular congestion edema. Stable cardiomediastinal silhouette. Impression: Mild vascular congestion and interstitial edema. Finalized by Mirtha Renteria MD on 11/07/2023 5:54 PM [facility] Mirtha Renteria MD - 11/07/2023 Single view chest History:chronic trach Difficulty breathing, shortness of breath Comparison: 11/07/2023 Findings: Single portable view of the chest. Stable tracheostomy. Enteric other signs of the stomach. Stable right jugular catheter. Mild vascular congestion edema. Stable cardiomediastinal silhouette. Impression: Mild vascular congestion and interstitial edema. Finalized by Mirtha Renteria MD on 11/07/2023 5:54 PM [facility] Radiology Study observation (narrative) [facility] XR Chest Single viewOrdered By: Mirtha Renteria on 11-07-2023 [facility] Work Phone: XR FEMUR LT 2+ VIEWSon 11-06 XR FEMUR LT 2+ VIEWS XR FEMUR LT 2+ VIEW S XR FEMUR LT 2+ VIEWS HISTORY: distal femur fracture COMPARISON: None available. IMPRESSION: Mildly comminuted fracture distal femoral metadiaphysis, with one third shaft's width lateral displacement of the distal fracture fragment and at least 1.6 cm of override. Osteopenia limits evaluation for intra-articular extension, CT could help further clarify. Finalized by Kelvin Wallis on 11/07/2023 11:55 AM Normal [facility] XR KNEE LT 3 VWSon XR KNEE LT 3 VWS XR KNEE LT 3 VWS 3 VIEWS LEFT KNEE HISTORY: Fracture, pain COMPARISON: None IMPRESSION: * Acute comminuted distal left femur fracture with mild impaction and slight lateral displacement of the main distal fracture fragment measuring 1.7 cm. * Diffuse osteopenia. Finalized by Bart Way MD on 11/07/2023 11:58 AM Normal [facility] aPTT Coag (PPP) [Time]on aPTT Coag (Bld) [Time] 33 s Normal 26-37 [facility] Comment on above: Performed By: #### 4 8664-7, PINR, 74023-4, 5643-2, 1798-8, CMP, CBCA ####[facility] ([id number])[address] [facility], [address], [place] [address] aPTT Coag (Bld) [Time] 34 s Normal 26-37 [facility] Comment on above: Result Comment: NEW REFERENCE RANGE Performed By: #### C BCA, BMP, PINR, 90679-2, 73799-3 #### [facility] ([id number]) [address] [facility], [place] [address] Follow-Upon 11-01-2023 Follow-Up [id number] Matthew Neal 1965 F Date Provider Department Center 11/01/2023 [place] SURG Second Fl Family History Family history unknown: Yes Level of Service:06906 [place] OFFICE/OUTPATIENT ESTABLISHED LOW MDM 20 MIN Reason for Visit and Comments: Follow-up [056373] - Matthew is here today for a follow up visit for Infected prosthetic mesh of abdominal wall, s/p umbilical hernia repair with mesh- 2 wk. Normal [facility] CT ABDOMEN AND PELVIS WO CON Ton 10-26-2023 CT ABDOMEN AND PELVIS WO CONT CT ABDOMEN AND PELVIS WO CONT CLINICAL INFORMATION: Erosion of vaginal mesh, initial encounter (CMS-HCC). Previous pelvic surgery with clinical concern for erosion of vaginal mesh. TECHNIQUE: CT Abdomen and Pelvis without intravenous contrast. All CT scans at this facility use dose modulation, iterative reconstruction, and/or weight based dosing when appropriate to reduce radiation dose to as low as reasonably achievable. COMPARISON: 07/15/2023 FINDINGS: Lung bases: Persistent left basilar density resembling atelectasis. Somewhat improved from prior study. Potentially chronic recurrent process. Correlate clinically to exclude pneumonia. Bony structures: Age compatible Abdomen: [Anterior abdominal wall protrusion of upper abdominal contents including left lobe the liver, stomach and bowel. Prior cholecystectomy. Liver, pancreas, spleen and adrenal gland show no evidence of acute disease. No hydronephrosis or inflammatory focus of the kidneys. Similar appearance to previous. Calcified renal vasculature. Nonobstructive bowel gas pattern. No free air demonstrated. The left anterior abdominal wall cavity is excluded from imaging. There is overlying mesh in place and focal hernia along the inner margin of the mass containing uncomplicated large bowel. Pelvis: No free fluid. Uterus retained in grossly stable from previous as well as 1.4 cm simple appearing left ovarian cyst. Unchanged. Urinary bladder is decompressed. 1 pelvic floor relaxation redemonstrated. There is subcutaneous edema along the lower anterior abdominal pelvic wall compatible cellulitis. No drainable fluid collection. Perineum poorly evaluated however there is no radiodense mesh material, fluid collection or localized inflammatory process to correlate with history. IMPRESSION: * Progressive subcutaneous edema lower anterior abdominal pelvic wall compatible with cellulitis. No drainable fluid collection. * Pelvic floor relaxation redemonstrated without radiodense material or specific inflammatory focus to correlate with the history. * Left lower abdominal wall hernia mesh with recurrent hernia containing uncomplicated short segment of large bowel. * Stable left simple appearing ovarian cyst. Finalized by Erick Sanders DO on 10/26/2023 2:56 PM Normal [facility] Consulton 10-19-2023 Consult [id number] Matthew Neal 1965 F Date Provider Department Center 10/19/2023 [facility] SURG Second Fl Family History Family history unknown: Yes Level of Service:92689 AR OFFICE/OUTPATIENT NEW LOW MDM 30 MINUTES Reason for Visit and Comments: Consult [484] - Matthew is here for consult: Infected mesh abdominal wall, s/p umbilical hernia repair 2004 Normal [facility] CK [Catalytic activity/Vol]o n 09-30-2023 CPK 18 U/L Low 24-170 [facility] Comment on above: Performed By: #### 2 157-6 #### [facility] ([id number]) [address] [facility], [place] [address] #### 51841-6 #### [facility] ([id number]) [address] [place] [address], [address] [place] [address] Lipid 1996 panelon 4 Cholesterol [Mass/Vol] 95 mg/dL Low 150-200 [facility] Comment on above: Performed By: #### 2 157-6 #### [facility] ([id number]) [address] [place] [address] #### 38938-1 #### [facility] ([id number]) [address], [address] [place] [address] Cholesterol in HDL [Mass/Vol] 32 mg/dL Low >39 [facility] Comment on above: Result Comment: HDL <40 mg/dL - High Risk HDL > or = 40mg/dL- Desirable HDL >60 mg/dL - Negative Risk Performed By: #### 2 157-6 #### [facility] ([id number]) [address] [place] [address] #### 52545-4 #### [facility] ([id number]) [address], [address] [place] [address] Cholesterol in VLDL [Mass/Vol] 88 mg/dL High 0-30 [facility] Comment on above: Performed By: #### 2 157-6 #### [facility] ([id number]) [address] [place] [address] #### 61476-9 #### [facility] ([id number]) [address], [address] [place] [address] CHOLESTEROL:HDL 3.0 Normal 1.0-5.0 [facility] Comment on above: Performed By: #### 2 157-6 #### [facility] ([id number]) [address] [place] [address] #### 29232-2 #### [facility] ([id number]) [address], [address] [place] [address] LDL (CALC) RESULT BELOW DETECTABLE RANGE Normal <130 [facility] Comment on above: Performed By: #### 2 157-6 #### [facility] ([id number]) [address] [place] [address] #### 34662-5 #### [facility] ([id number]) [address], [address] [place] [address] Triglyceride [Mass/Vol] 440 mg/dL High 27-150 [facility] Comment on above: Performed By: #### 2 157-6 #### [facility] ([id number]) [address] [place] [address] #### 95473-4 #### [facility] ([id number]) [address] [facility], [address] [place] [address] CBC AND AUTO DIFFon 09-22-19 24 ABSOLUTE BASOPHIL 0.1 X10E9/L Normal 0.0-0.2 [facility] Comment on above: Performed By: #### 2 157-6, CBCA #### [facility] ([id number]) [address] [place] [address] ABSOLUTE NEUTROPHIL 4.4 X10E9/L Normal 1.5-6.6 [facility] Comment on above: Performed By: #### 2 157-6, CBCA #### [facility] ([id number]) [address] [place] [address] Basophils/100 WBC (Bld) 1.0 % Normal [facility] Comment on above: Performed By: #### 2 157-6, CBCA #### [facility] ([id number]) [address] [place] [address] Eosinophils (Bld) [#/Vol] 0.3 10*3/uL Normal 0.0-0.4 [facility] Comment on above: Performed By: #### 2 157-6, CBCA #### [facility] ([id number]) [address] [place] [address]06 Eosinophils/100 WBC (Bld) 4.6 % Normal [facility] Comment on above: Performed By: #### 2 157-6, CBCA #### [facility] ([id number]) [address] [place] [address] Erythrocyte distribution width (RBC) [Ratio] 18.8 % High 11.5-15.0 [facility] Comment on above: Performed By: #### 2 157-6, CBCA #### [facility] ([id number]) [address] [place] [address] Hematocrit (Bld) [Volume fraction] 33.4 % Low 35-47 [facility] Comment on above: Performed By: #### 2 157-6, CBCA #### [facility] ([id number]) [address] [place] [address] Hemoglobin (Bld) [Mass/Vol] 10.9 g/dL Low 11.7-15.5 [facility] Comment on above: Performed By: #### 2 157-6, CBCA #### [facility] ([id number]) [address] [place] [address]35[address] Lymphocytes (Bld) [#/Vol] 0.5 10*3/uL Low 1.0-3.5 [facility] Comment on above: Performed By: #### 2 157-6, CBCA #### [facility] ([id number]) [address] [place] [address] Lymphocytes/100 WBC (Bld) 8.5 % Normal [facility] Comment on above: Performed By: #### 2 157-6, CBCA #### [facility] ([id number]) [address] [place] [address]3083 MCH (RBC) [Entitic mass] 32.9 pg Normal 27-34 [facility] Comment on above: Performed By: #### 2 157-6, CBCA #### [facility] ([id number]) [address] [place] [address]30[address] MCHC (RBC) [Mass/Vol] 32.5 g/dL Normal 32-36 [facility] Comment on above: Performed By: #### 2 157-6, CBCA #### [facility] ([id number]) [address] [place] [address]48[address] MCV (RBC) [Entitic vol] 101 fL High 80-100 [facility] Comment on above: Performed By: #### 2 157-6, CBCA #### [facility] ([id number]) [address] [place] [address] 16598 Monocytes (Bld) [#/Vol] 0.5 10*3/uL Normal 0-0.9 [facility] Comment on above: Performed By: #### 2 157-6, CBCA #### [facility] ([id number]) [address] [place] [address] 16211 Monocytes/100 WBC (Bld) 8.8 % Normal [facility] Comment on above: Performed By: #### 2 157-6, CBCA #### [facility] ([id number]) [address] [place] [address] 38117 Neutrophils/100 WBC (Bld) 77.1 % Normal [facility] Comment on above: Performed By: #### 2 157-6, CBCA #### [facility] ([id number]) [address] [place] [address] 31944 Platelet mean volume (Bld) [Entitic vol] 9.0 fL Normal 7-12 [facility] Comment on above: Performed By: #### 2 157-6, CBCA #### [facility] ([id number]) [address] [place] [address]79 Platelets (Bld) [#/Vol] 107 10*3/uL Low 150-450 [facility] Comment on above: Performed By: #### 2 157-6, CBCA #### [facility] ([id number]) [address] [place] [address] [address] RBC COUNT 3.29 X10E12/L Low 3.80-5.20 [facility] Comment on above: Performed By: #### 2 157-6, CBCA #### [facility] ([id number]) [address] [place] [address] WBC (Bld) [#/Vol] 5.6 10*3/uL Normal 4.0-11.0 [facility] Comment on above: Performed By: #### 2 157-6, CBCA #### [facility] ([id number]) [address] [place] [address] CK [Catalytic activity/Vol]o n 09-22-2023 CPK 23 U/L Low 24-170 [facility] Comment on above: Performed By: #### 2 157-6, CBCA #### [facility] ([id number]) [address] [place] [address] Basophils Auto (Bld) [#/Vol] Ordered By: Sandy Rivera on 03-07-2023 Basophils (Bld) [#/Vol] 0.1 10*3/uL 0.0-0.2 [facility] Basophils/100 WBC Auto (Bld) Ordered By: Sandy Rivera on 03-07-2023 Basophils/100 WBC (Bld) 0.9 % . [facility] Calcium [Mass/volume] in Ser um or PlasmaOrdered By: Sandy Rivera on 03-07-2023 Calcium [Mass/Vol] 8.3 mg/dL 8.6-10.3 [facility] Carbon dioxide, total [Moles /volume] in Serum or PlasmaOrdered By: Sandy Rivera on 03-07-2023 CO2 [Moles/Vol] 24.7 mmol/L 21.0-31.0 [facility] Chloride [Moles/volume] in S meli or PlasmaOrdered By: Sandy Rivera on 03-07-2023 Chloride [Moles/Vol] 92 mmol/L 98-107 [facility] Creatinine [Mass/volume] in Serum or PlasmaOrdered By: Sandy Rivera on 03-07-2023 Creatinine [Mass/Vol] 6.23 mg/dL 0.60-1.[address] [facility] Eosinophils Auto (Bld) [#/Vo l]Ordered By: Sandy Rivera on 03-07-2023 Eosinophils (Bld) [#/Vol] 0.4 10*3/uL 0.0-0.45 [facility] Eosinophils/100 WBC Auto (Bl d)Ordered By: Sandy Rivera on 03-07-2023 Eosinophils/100 WBC (Bld) 5.7 % . [facility] Erythrocyte distribution wid th Auto (RBC) [Ratio]Ordered By: Sandy Rivera on 03-07-2023 Erythrocyte distribution width (RBC) [Ratio] 16.7 % 11.9-15.3 [facility] Glucose [Mass/volume] in Ser um or PlasmaOrdered By: Sandy Rivera on 03-07-2023 Glucose [Mass/Vol] 223 mg/dL 70-100 [facility] Comment on above: ADA recommended refe rence rangeRandom Glucose Reference Range is dependent on time and content of last meal. Glucose of more than 200 mg/dL in a nonstressed, ambulatory subject supports the diagnosis of Diabetes Mellitus. Hematocrit Auto (Bld) [Volum e fraction]Ordered By: Sandy Rivera on 03-07-2023 Hematocrit (Bld) [Volume fraction] 33.3 % 34.0-46.4 [facility] Hemoglobin [Mass/volume] in BloodOrdered By: Sandy Rivera on 03-07-2023 Hemoglobin (Bld) [Mass/Vol] 10.5 g/dL 11.8-15.4 [facility] Leukocytes [#/volume] correc karo for nucleated erythrocytes in Blood by Automated counOrdered By: Sandy Rivera on 03-07-2023 WBC corrected for nucl RBC Auto (Bld) [#/Vol] 6.6 10*3/uL 3.8-11.6 [facility] Lymphocytes Auto (Bld) [#/Vo l]Ordered By: Sandy Rivera on 03-07-2023 Lymphocytes (Bld) [#/Vol] 0.7 10*3/uL 1.00-4.8 [facility] Lymphocytes/100 WBC Auto (Bl d)Ordered By: Sandy Rivera on 03-07-2023 Lymphocytes/100 WBC (Bld) 10.5 % . [facility] MCH Auto (RBC) [Entitic mass ]Ordered By: Sandy Rivera on 03-07-2023 MCH (RBC) [Entitic mass] 28.9 pg 24.7-34.3 [facility] MCHC Auto (RBC) [Mass/Vol]Or dered By: Sandy Rivera on 03-07-2023 MCHC (RBC) [Mass/Vol] 31.7 g/dL 32.0-35.[address] [facility] MCV Auto (RBC) [Entitic vol] Ordered By: Sandy Rivera on 03-07-2023 MCV (RBC) [Entitic vol] 91.2 fL 80-100 [facility] Monocytes Auto (Bld) [#/Vol] Ordered By: Sandy Rivera on 03-07-2023 Monocytes (Bld) [#/Vol] 0.3 10*3/uL 0.0-0.8 [facility] Monocytes/100 WBC Auto (Bld) Ordered By: Sandy Rivera on 03-07-2023 Monocytes/100 WBC (Bld) 4.9 % . [facility] Neutrophils Auto (Bld) [#/Vo l]Ordered By: Sandy Rivera on 03-07-2023 Neutrophils (Bld) [#/Vol] 5.1 10*3/uL 1.8-7.7 [facility] Neutrophils/100 WBC Auto (Bl d)Ordered By: Sandy Rivera on 03-07-2023 Neutrophils/100 WBC (Bld) 78.0 % . [facility] No Panel InformationOrdered By: Sandy Rivera on 03-07-2023 Estimated GFR (CKD-EPI) 7.362 mL/Min [facility] Creatinine Clearance (Chem N/A [facility] Nucleated erythrocytes [Pres ence] in Blood by Automated countOrdered By: Sandy Rivera on 03-07-2023 Nucleated RBC Auto Ql (Bld) 0.1 /100{WBC} 0-0.5 [facility] Platelet mean volume Auto (B ld) [Entitic vol]Ordered By: Sandy Rivera on 03-07-2023 Platelet mean volume (Bld) [Entitic vol] 9.0 fL 6.3-10.7 [facility] Platelets Auto (Bld) [#/Vol] Ordered By: Sandy Rivera on 03-07-2023 Platelets (Bld) [#/Vol] 109 10*3/uL 150-450 [facility] Potassium [Moles/volume] in Serum or PlasmaOrdered By: Sandy Rivera on 03-07-2023 Potassium [Moles/Vol] 4.7 mmol/L 3.5-5.[address] [facility] RBC Auto (Bld) [#/Vol]Ordere d By: Sandy Rivera on 03-07-2023 RBC (Bld) [#/Vol] 3.65 10*6/uL 3.60-5.00 [facility] Serum or plasma anion gap de terminationOrdered By: Sandy Rivera on 03-07-2023 Anion gap [Moles/Vol] 20.0 mmol/L 6.0-15.0 [facility] Sodium [Moles/volume] in Ser um or PlasmaOrdered By: Sandy Rivera on 03-07-2023 Sodium [Moles/Vol] 132 mmol/L 136-145 [facility] Urea nitrogen [Mass/volume] in Serum or PlasmaOrdered By: Sandy Rivera on 03-07-2023 Urea nitrogen [Mass/Vol] 94 mg/dL 7-25 [facility] WBC Auto (Bld) [#/Vol]Ordere d By: Sandy Rivera on 03-07-2023 WBC (Bld) [#/Vol] 6.6 10*3/uL 3.8-11.6 [facility] ATYPICAL PNEUMONIA PANELon 0 06-23-2022 C.PNEUMONIAE PCR Not detected Normal Not Detected [facility] Comment on above: Result Comment: This test was developed and its performance characteristicsdetermined by [employer]. It has not been cleared orapproved by the U.S. Food and Drug Administration. Resultsshould be used in conjunction with clinical findings, andshould not form the sole basis for a diagnosis or treatmentdecision. Performed At:[id number] [place], [place] [address]Laboratory Director: Yakov Dutta Ph.D., BCLD (ABB)CLIA#: [id number]: Performed By: #### A TPPN ####[id number] [place] [id number] M.PNEUMONIAE PCR Not detected Normal Not Detected [facility] Comment on above: Performed By: #### A TPPN ####[facility] [place] [id number] VANCOMYCIN,TROUGHon 06-24-19 23 VANCOMYCIN,TROUGH Canceled Normal [facility] Comment on above: Order Comment: TEST VANCOMYCIN,TROUGH WAS CANCELLED, 06/23/2022 00:31 Performed By: #### V ANCT ####[address] [address] CBCon 06-22-2022 HCT Canceled Normal [facility] Comment on above: Order Comment: TEST CBC WAS CANCELLED, 06/22/2022 06:35 pt being blind aide DAVID chew tocancel labs. Performed By: #### C BC ####[address] [address] HGB Canceled Normal [facility] Comment on above: Order Comment: TEST CBC WAS CANCELLED, 06/22/2022 06:35 pt being blind aide DAVID said tocancel labs. Performed By: #### C BC ####[address] [place] [address] MCHC Canceled Normal [facility] Comment on above: Order Comment: TEST CBC WAS CANCELLED, 06/22/2022 06:35 pt being blind aide DAVID said tocancel labs. Performed By: #### C BC ####[address] [place] [address] MCV Canceled Normal [facility] Comment on above: Order Comment: TEST CBC WAS CANCELLED, 06/22/2022 06:35 pt being blind aide DAVID said tocancel labs. Performed By: #### C BC ####[address] [place] [address] NUCLEATED RBC Canceled Normal [facility] Comment on above: Order Comment: TEST CBC WAS CANCELLED, 06/22/2022 06:35 pt being blind aide DAVID said tocancel labs. Performed By: #### C BC ####[address] [place] [address] PLT Canceled Normal [facility] Comment on above: Order Comment: TEST CBC WAS CANCELLED, 06/22/2022 06:35 pt being blind aide DAVID said tocancel labs. Performed By: #### C BC ####[address] [place] [address] RBC Canceled Normal [facility] Comment on above: Order Comment: TEST CBC WAS CANCELLED, 06/22/2022 06:35 pt being blind aide DAVID said tocancel labs. Performed By: #### C BC ####[address] [place] [address] RDW-CV Canceled Normal [facility] Comment on above: Order Comment: TEST CBC WAS CANCELLED, 06/22/2022 06:35 pt being blind aide DAVID said tocancel labs. Performed By: #### C BC ####[address] [place] [address] WBC Canceled Normal [facility] Comment on above: Order Comment: TEST CBC WAS CANCELLED, 06/22/2022 06:35 pt being blind aide DAVID said tocancel labs. Performed By: #### C BC ####[address] [id number] COMPREHENSIVE PANELon 2022 ALBUMIN Canceled Normal [facility] Comment on above: Order Comment: TEST COMPREHENSIVE PANEL WAS CANCELLED, 06/22/2022 06:35 pt being dischargeRN DAVID said to cancel labs. Performed By: #### C MP ####[address] [id number] ALKALINE PHOSPHATASE Canceled Normal [facility] Comment on above: Order Comment: TEST COMPREHENSIVE PANEL WAS CANCELLED, 06/22/2022 06:35 pt being dischargeRN DAVID said to cancel labs. Performed By: #### C MP ####[address] [place] [address] ALT Canceled Normal [facility] Comment on above: Order Comment: TEST COMPREHENSIVE PANEL WAS CANCELLED, 06/22/2022 06:35 pt being dischargeRN DAVID said to cancel labs. Result Comment: Patty ents treated with Sulfasalazine may generate falsely decreased results for ALT. Performed By: #### C MP ####[address] [place] [address] ANION GAP Canceled Normal [facility] Comment on above: Order Comment: TEST COMPREHENSIVE PANEL WAS CANCELLED, 06/22/2022 06:35 pt being dischargeRN DAVID said to cancel labs. Performed By: #### C MP ####[address] [place] [address] AST Canceled Normal [facility] Comment on above: Order Comment: TEST COMPREHENSIVE PANEL WAS CANCELLED, 06/22/2022 06:35 pt being dischargeRN DAVID said to cancel labs. Performed By: #### C MP ####[address] [place] [address] BICARBONATE Canceled Normal [facility] Comment on above: Order Comment: TEST COMPREHENSIVE PANEL WAS CANCELLED, 06/22/2022 06:35 pt being dischargeRN DAVID said to cancel labs. Performed By: #### C MP ####[address] [place] [address] BILIRUBIN,TOTAL Canceled Normal [facility] Comment on above: Order Comment: TEST COMPREHENSIVE PANEL WAS CANCELLED, 06/22/2022 06:35 pt being dischargeRN DAVID said to cancel labs. Performed By: #### C MP ####[address] [place] [address] CALCIUM Canceled Normal [facility] Comment on above: Order Comment: TEST COMPREHENSIVE PANEL WAS CANCELLED, 06/22/2022 06:35 pt being dischargeRN DAVID said to cancel labs. Performed By: #### C MP ####[address] [place] [address] CHLORIDE Canceled Normal [facility] Comment on above: Order Comment: TEST COMPREHENSIVE PANEL WAS CANCELLED, 06/22/2022 06:35 pt being dischargeRN DAVID said to cancel labs. Performed By: #### C MP ####[address] [place] [address] CREATININE Canceled [facility] Comment on above: Order Comment: TEST COMPREHENSIVE PANEL WAS CANCELLED, 06/22/2022 06:35 pt being dischargeRN DAVID said to cancel labs. Performed By: #### C MP ####[address] [place] [address] eGFR FEMALE Canceled Normal [facility] Comment on above: Order Comment: TEST COMPREHENSIVE PANEL WAS CANCELLED, 06/22/2022 06:35 pt being dischargeRN DAVID said to cancel labs. Result Comment: CALC ULATIONS OF ESTIMATED GFR ARE PERFORMED USING THE 2020 CKD-EPI STUDY REFIT EQUATION WITHOUT THE RACE VARIABLE FOR THE IDMS-TRACEABLE CREATININE METHODS.https://jasn.asnjournals.org/content/early// N.6426409148 Performed By: #### C MP ####[address] [place] [address] eGFR MALE Canceled Normal [facility] Comment on above: Order Comment: TEST COMPREHENSIVE PANEL WAS CANCELLED, 06/22/2022 06:35 pt being dischargeRN DAVID said to cancel labs. Result Comment: CALC ULATIONS OF ESTIMATED GFR ARE PERFORMED USING THE 2020 CKD-EPI STUDY REFIT EQUATION WITHOUT THE RACE VARIABLE FOR THE IDMS-TRACEABLE CREATININE METHODS.https://jasn.asnjournals.org/content/early// N.3321489315 Performed By: #### C MP ####[address] [place] [address] GLUCOSE Canceled [facility] Comment on above: Order Comment: TEST COMPREHENSIVE PANEL WAS CANCELLED, 06/22/2022 06:35 pt being dischargeRN ADVID said to cancel labs. Performed By: #### C MP ####[address] [place] [address] POTASSIUM Canceled [facility] Comment on above: Order Comment: TEST COMPREHENSIVE PANEL WAS CANCELLED, 06/22/2022 06:35 pt being dischargeRN DAVID said to cancel labs. Performed By: #### C MP ####[address] [place] [address] SODIUM Canceled Normal [facility] Comment on above: Order Comment: TEST COMPREHENSIVE PANEL WAS CANCELLED, 06/22/2022 06:35 pt being dischargeRN DAVID said to cancel labs. Performed By: #### C MP ####[address] [place] [address] TOTAL PROTEIN Canceled [facility] Comment on above: Order Comment: TEST COMPREHENSIVE PANEL WAS CANCELLED, 06/22/2022 06:35 pt being dischargeRN DAVID said to cancel labs. Performed By: #### C MP ####[address] [place] [address] UREA NITROGEN Canceled Normal [facility] Comment on above: Order Comment: TEST COMPREHENSIVE PANEL WAS CANCELLED, 06/22/2022 06:35 pt being dischargeRN DAVID said to cancel labs. Performed By: #### C MP ####[place] [id number] Daily Progress Note-Infectio us Diseaseon 06-22-2022 Daily Progress Note-Infectious Disease Normal [facility] Daily Progress Note-Palliati ve Careon 06-22-2022 Daily Progress Note-Palliative Care Normal [facility] GLUCOSE-POCTon 06-22-2022 Glucose [Mass/Vol] 143 mg/dL High 74 - 99 [facility] Comment on above: Performed By: #### G MARLEN ####[place] [id number] MAGNESIUMon 06-22-2022 MAGNESIUM Canceled Normal [facility] Comment on above: Order Comment: TEST MAGNESIUM WAS CANCELLED, 06/22/2022 06:35 pt being blind aide Patrick to cancel labs. Performed By: #### M G ####[address] [address] CBCon 06-21-2022 Erythrocyte distribution width (RBC) [Ratio] 13.4 % Normal 11.5 - 14.5 [facility] Comment on above: Performed By: #### C BC ####[address] [address] Hematocrit (Bld) [Volume fraction] 25.5 % Low 36.0 - 46.0 [facility] Comment on above: Performed By: #### C BC ####[address] [address] Hemoglobin (Bld) [Mass/Vol] 8.0 g/dL Low 12.0 - 16.0 [facility] Comment on above: Performed By: #### C BC ####[address] [address] MCHC (RBC) [Mass/Vol] 31.4 g/dL Low 32.0 - 36.0 [facility] Comment on above: Performed By: #### C BC ####[address] [address] MCV (RBC) [Entitic vol] 100 fL Normal 80 - 100 [facility] Comment on above: Performed By: #### C BC ####[address] [address] NUCLEATED RBC 0.0 /100 WBC Normal 0.0 - 0.0 [facility] Comment on above: Performed By: #### C BC ####[address] [address] Platelets (Bld) [#/Vol] 149 10*3/uL Low 150 - 450 [facility] Comment on above: Performed By: #### C BC ####[address] [address] RBC 2.56 x10E12/L Low 4.00 - 5.20 [facility] Comment on above: Performed By: #### C BC ####[address] [address] WBC (Bld) [#/Vol] 7.4 10*3/uL Normal 4.4 - 11.3 [facility] Comment on above: Performed By: #### C BC ####[address] [address] Consult-Infectious Diseaseon 06-21-2022 Consult-Infectious Disease Normal [facility] Consult-Palliative Careon Consult-Palliative Care Normal [facility] Daily Progress Note - Critic al Careon 06-21-2022 Daily Progress Note - Critical Care Normal [facility] Daily Progress Note-Nephrolo gyon 06-21-2022 Daily Progress Note-Nephrology Normal [facility] Discharge [id number] Discharge Profile2 Normal [facility] GLUCOSE-POCTon 06-21-2022 Glucose [Mass/Vol] 208 mg/dL High 74 - 99 [facility] Comment on above: Performed By: #### G MARLEN ####[address] [address] Glucose [Mass/Vol] 145 mg/dL High 74 - 99 [facility] Comment on above: Performed By: #### G MARLEN ####[address] [address] Glucose [Mass/Vol] 131 mg/dL High 74 - 99 [facility] Comment on above: Performed By: #### G MARLEN ####[address] [address] MAGNESIUMon 06-21-2022 Magnesium [Mass/Vol] 1.96 mg/dL Normal 1.60 - 2.40 [facility] Comment on above: Performed By: #### M G ####[address] [address] Order Reconciliationon 06-21 Order Reconciliation Normal [facility] RENAL FUNCTION PANELon 06-21 Albumin [Mass/Vol] 3.4 g/dL Normal 3.4 - 5.0 [facility] Comment on above: Performed By: #### R ENAL ####[address] [address] Anion gap [Moles/Vol] 15 mmol/L Normal 10 - 20 [facility] Comment on above: Performed By: #### R ENAL ####[address] [address] Calcium [Mass/Vol] 8.7 mg/dL Normal 8.6 - 10.3 [facility] Comment on above: Performed By: #### R ENAL ####[address] [address] Chloride [Moles/Vol] 92 mmol/L Low 98 - 107 [facility] Comment on above: Performed By: #### R ENAL ####[address] [address] Creatinine [Mass/Vol] 3.40 mg/dL High 0.50 - 1.05 [facility] Comment on above: Performed By: #### R ENAL ####[address] [address] GFR/1.73 sq M.predicted among non-blacks MDRD (S/P/Bld) [Vol rate/Area] 15 mL/min/{1.73_m2} Abnormal >90 [facility] Comment on above: Result Comment: CALC ULATIONS OF ESTIMATED GFR ARE PERFORMED USING THE 2020 CKD-EPI STUDY REFIT EQUATION WITHOUT THE RACE VARIABLE FOR THE IDMS-TRACEABLE CREATININE METHODS.https://jasn.asnjournals.org/content/early/ N.9041203649 Performed By: #### R ENAL ####[address] [address] Glucose [Mass/Vol] 160 mg/dL High 74 - 99 [facility] Comment on above: Performed By: #### R ENAL ####[address] [address] HCO3 (Bld) [Moles/Vol] 25 mmol/L Normal 21 - 32 [facility] Comment on above: Performed By: #### R ENAL ####[address] [address] Phosphate [Mass/Vol] 5.5 mg/dL High 2.5 - 4.9 [facility] Comment on above: Result Comment: The performance characteristics of phosphorus testing in heparinized plasma have been validated by the individual laboratory site where testing is performed. Testing on heparinized plasma is not approved by the FDA; however, such approval is not necessary. Performed By: #### R ENAL ####[address] [address] Potassium [Moles/Vol] 5.4 mmol/L High 3.5 - 5.3 [facility] Comment on above: Performed By: #### R ENAL ####[address] [address] Sodium [Moles/Vol] 127 mmol/L Low 136 - 145 [facility] Comment on above: Performed By: #### R ENAL ####[address] [address] Urea nitrogen [Mass/Vol] 48 mg/dL High 6 - 23 [facility] Comment on above: Performed By: #### R ENAL ####[address] [address] CBC AND DIFFERENTIALon 06-20 % AUTOMATED IMMATURE GRAN 1.1 % High 0.0 - 0.9 [facility] Comment on above: Result Comment: Nichole ture Granulocyte Count (IG) includes promyelocytes, myelocytes and metamyelocytes but does not include bands. Percent differential counts (%) should be interpreted in the context of the absolute cell counts (cells/L). Performed By: #### C BCDF ####[address] [address] Basophils (Bld) [#/Vol] 0.10 10*3/uL Normal 0.00 - 0.10 [facility] Comment on above: Performed By: #### C BCDF ####[address] [address] Basophils/100 WBC (Bld) 1.4 % Normal 0.0 - 2.0 [facility] Comment on above: Performed By: #### C BCDF ####[address] [address] Eosinophils (Bld) [#/Vol] 0.61 10*3/uL Normal 0.00 - 0.70 [facility] Comment on above: Performed By: #### C BCDF ####[address] [address] Eosinophils/100 WBC (Bld) 8.6 % Normal 0.0 - 6.0 [facility] Comment on above: Performed By: #### C BCDF ####[address] [address] Erythrocyte distribution width (RBC) [Ratio] 13.4 % Normal 11.5 - 14.5 [facility] Comment on above: Performed By: #### C BCDF ####[address] [address] Hematocrit (Bld) [Volume fraction] 23.7 % Low 36.0 - 46.0 [facility] Comment on above: Performed By: #### C BCDF ####[address] [address] Hemoglobin (Bld) [Mass/Vol] 7.5 g/dL Low 12.0 - 16.0 [facility] Comment on above: Performed By: #### C BCDF ####[address] [address] Lymphocytes (Bld) [#/Vol] 0.99 10*3/uL Low 1.20 - 4.80 [facility] Comment on above: Performed By: #### C BCDF ####[address] [address] Lymphocytes/100 WBC (Bld) 14.0 % Normal 13.0 - 44.0 [facility] Comment on above: Performed By: #### C BCDF ####[address] [address] MCHC (RBC) [Mass/Vol] 31.6 g/dL Low 32.0 - 36.0 [facility] Comment on above: Performed By: #### C BCDF ####[address] [address] MCV (RBC) [Entitic vol] 100 fL Normal 80 - 100 [facility] Comment on above: Performed By: #### C BCDF ####[address] [address] Monocytes (Bld) [#/Vol] 0.71 10*3/uL Normal 0.10 - 1.00 [facility] Comment on above: Performed By: #### C BCDF ####[address] [address] Monocytes/100 WBC (Bld) 10.0 % Normal 2.0 - 10.0 [facility] Comment on above: Performed By: #### C BCDF ####[address] [address] Neutrophils (Bld) [#/Vol] 4.60 10*3/uL Normal 1.20 - 7.70 [facility] Comment on above: Performed By: #### C BCDF ####[address] [address] Neutrophils/100 WBC (Bld) 64.9 % Normal 40.0 - 80.0 [facility] Comment on above: Performed By: #### C BCDF ####[address] [address] NUCLEATED RBC 0.0 /100 WBC Normal 0.0 - 0.0 [facility] Comment on above: Performed By: #### C BCDF ####[address] [address] Platelets (Bld) [#/Vol] 146 10*3/uL Low 150 - 450 [facility] Comment on above: Performed By: #### C BCDF ####[address] [address] RBC 2.37 x10E12/L Low 4.00 - 5.20 [facility] Comment on above: Performed By: #### C BCDF ####[address] [address] WBC (Bld) [#/Vol] 7.1 10*3/uL Normal 4.4 - 11.3 [facility] Comment on above: Performed By: #### C BCDF ####[address] [address] Daily Progress Note - Critic al Careon 06-20-2022 Daily Progress Note - Critical Care Normal [facility] Daily Progress Note-Nephrolo gyon 06-20-2022 Daily Progress Note-Nephrology Normal [facility] GLUCOSE-POCTon 06-20-2022 Glucose [Mass/Vol] 98 mg/dL Normal 74 - 99 [facility] Comment on above: Performed By: #### G MARLEN ####[address] [address] Glucose [Mass/Vol] 154 mg/dL High 74 - 99 [facility] Comment on above: Performed By: #### G MARLEN ####[address] [place] [address] Glucose [Mass/Vol] 151 mg/dL High 74 - 99 [facility] Comment on above: Performed By: #### G MARLEN ####[address] [address] MAGNESIUMon 06-20-2022 Magnesium [Mass/Vol] 1.88 mg/dL Normal 1.60 - 2.40 [facility] Comment on above: Performed By: #### M G ####[address] [address] RENAL FUNCTION PANELon 06-20 Albumin [Mass/Vol] 3.2 g/dL Low 3.4 - 5.0 [facility] Comment on above: Performed By: #### R ENAL ####[address] [address] Anion gap [Moles/Vol] 12 mmol/L Normal 10 - 20 [facility] Comment on above: Performed By: #### R ENAL ####[address] [address] Calcium [Mass/Vol] 8.3 mg/dL Low 8.6 - 10.3 [facility] Comment on above: Performed By: #### R ENAL ####[address] [address] Chloride [Moles/Vol] 94 mmol/L Low 98 - 107 [facility] Comment on above: Performed By: #### R ENAL ####[address] [address] Creatinine [Mass/Vol] 3.09 mg/dL High 0.50 - 1.05 [facility] Comment on above: Performed By: #### R ENAL ####[address] [address] GFR/1.73 sq M.predicted among non-blacks MDRD (S/P/Bld) [Vol rate/Area] 17 mL/min/{1.73_m2} Abnormal >90 [facility] Comment on above: Result Comment: CALC ULATIONS OF ESTIMATED GFR ARE PERFORMED USING THE 2020 CKD-EPI STUDY REFIT EQUATION WITHOUT THE RACE VARIABLE FOR THE IDMS-TRACEABLE CREATININE METHODS.https://jasn.asnjournals.org/content// N.[id number] Performed By: #### R ENAL ####[address] [place] [address] Glucose [Mass/Vol] 174 mg/dL High 74 - 99 [facility] Comment on above: Performed By: #### R ENAL ####[address] [address] HCO3 (Bld) [Moles/Vol] 27 mmol/L Normal 21 - 32 [facility] Comment on above: Performed By: #### R ENAL ####[address] [address] Phosphate [Mass/Vol] 4.6 mg/dL Normal 2.5 - 4.9 [facility] Comment on above: Result Comment: The performance characteristics of phosphorus testing in heparinized plasma have been validated by the individual laboratory site where testing is performed. Testing on heparinized plasma is not approved by the FDA; however, such approval is not necessary. Performed By: #### R ENAL ####[address] [address] Potassium [Moles/Vol] 4.9 mmol/L Normal 3.5 - 5.3 [facility] Comment on above: Performed By: #### R ENAL ####[address] [address] Sodium [Moles/Vol] 128 mmol/L Low 136 - 145 [facility] Comment on above: Performed By: #### R ENAL ####[address] [address] Urea nitrogen [Mass/Vol] 38 mg/dL High 6 - 23 [facility] Comment on above: Performed By: #### R ENAL ####[address] [address] URINALYSIS WITH CULTURE IF I NDICATEDon 06-20-2022 Appearance (U) Canceled Normal [facility] Comment on above: Order Comment: TEST URINALYSIS WITH CULTURE IF INDICATED WAS CANCELLED, 06/20/2022 19:25 NOSPECIMEN RECEIVED IN LAB. Performed By: #### U ARFX ####[address] [address] ASCORBIC ACID Canceled Normal [facility] Comment on above: Order Comment: TEST URINALYSIS WITH CULTURE IF INDICATED WAS CANCELLED, 06/20/2022 19:25 NOSPECIMEN RECEIVED IN LAB. Result Comment: Conc entrations > = 20 mg/dL of ascorbic acid can be expected to cause stronginterference in the reactions testing for glucose, nitrite and blood. It isrecommended to discontinue Vitamin C administration and retest in 10 hours. Performed By: #### U ARFX ####[address] [address] Bilirubin Ql (U) Canceled Normal [facility] Comment on above: Order Comment: TEST URINALYSIS WITH CULTURE IF INDICATED WAS CANCELLED, 06/20/2022 19:25 NOSPECIMEN RECEIVED IN LAB. Performed By: #### U ARFX ####[address] [address] Color (U) Canceled Normal [facility] Comment on above: Order Comment: TEST URINALYSIS WITH CULTURE IF INDICATED WAS CANCELLED, 06/20/2022 19:25 NOSPECIMEN RECEIVED IN LAB. Performed By: #### U ARFX ####[address] [address] Glucose Ql (U) Canceled Normal [facility] Comment on above: Order Comment: TEST URINALYSIS WITH CULTURE IF INDICATED WAS CANCELLED, 06/20/2022 19:25 NOSPECIMEN RECEIVED IN LAB. Performed By: #### U ARFX ####[address] [address] Hemoglobin Ql (U) Canceled Normal [facility] Comment on above: Order Comment: TEST URINALYSIS WITH CULTURE IF INDICATED WAS CANCELLED, 06/20/2022 19:25 NOSPECIMEN RECEIVED IN LAB. Performed By: #### U ARFX ####[address] [address] Ketones Ql (U) Canceled Normal [facility] Comment on above: Order Comment: TEST URINALYSIS WITH CULTURE IF INDICATED WAS CANCELLED, 06/20/2022 19:25 NOSPECIMEN RECEIVED IN LAB. Performed By: #### U ARFX ####[address] [address] Leukocyte esterase Test strip Ql (U) Canceled Normal [facility] Comment on above: Order Comment: TEST URINALYSIS WITH CULTURE IF INDICATED WAS CANCELLED, 06/20/2022 19:25 NOSPECIMEN RECEIVED IN LAB. Performed By: #### U ARFX ####[address] [address] Nitrite Ql (U) Canceled [facility] Comment on above: Order Comment: TEST URINALYSIS WITH CULTURE IF INDICATED WAS CANCELLED, 06/20/2022 19:25 NOSPECIMEN RECEIVED IN LAB. Performed By: #### U ARFX ####[address] [address] pH Canceled [facility] Comment on above: Order Comment: TEST URINALYSIS WITH CULTURE IF INDICATED WAS CANCELLED, 06/20/2022 19:25 NOSPECIMEN RECEIVED IN LAB. Performed By: #### U ARFX ####[address] [address] Protein Ql (U) Canceled [facility] Comment on above: Order Comment: TEST URINALYSIS WITH CULTURE IF INDICATED WAS CANCELLED, 06/20/2022 19:25 NOSPECIMEN RECEIVED IN LAB. Performed By: #### U ARFX ####[address] [address] Specific gravity (U) [Rel density] Canceled [facility] Comment on above: Order Comment: TEST URINALYSIS WITH CULTURE IF INDICATED WAS CANCELLED, 06/20/2022 19:25 NOSPECIMEN RECEIVED IN LAB. Performed By: #### U ARFX ####[address] [address] UROBILINOGEN Canceled Normal [facility] Comment on above: Order Comment: TEST URINALYSIS WITH CULTURE IF INDICATED WAS CANCELLED, 06/20/2022 19:25 NOSPECIMEN RECEIVED IN LAB. Performed By: #### U ARFX ####[address] [address] CBCon 06-19-2022 Erythrocyte distribution width (RBC) [Ratio] 13.4 % Normal 11.5 - 14.5 [facility] Comment on above: Performed By: #### C BC ####[address] [address] Hematocrit (Bld) [Volume fraction] 23.6 % Low 36.0 - 46.0 [facility] Comment on above: Performed By: #### C BC ####[address] [address] Hemoglobin (Bld) [Mass/Vol] 7.4 g/dL Low 12.0 - 16.0 [facility] Comment on above: Performed By: #### C BC ####[address] [address] MCHC (RBC) [Mass/Vol] 31.4 g/dL Low 32.0 - 36.0 [facility] Comment on above: Performed By: #### C BC ####[address] [address] MCV (RBC) [Entitic vol] 100 fL Normal 80 - 100 [facility] Comment on above: Performed By: #### C BC ####[address] [address] NUCLEATED RBC 0.0 /100 WBC Normal 0.0 - 0.0 [facility] Comment on above: Performed By: #### C BC ####[address] [address] Platelets (Bld) [#/Vol] 151 10*3/uL Normal 150 - 450 [facility] Comment on above: Performed By: #### C BC ####[address] [address] RBC 2.36 x10E12/L Low 4.00 - 5.20 [facility] Comment on above: Performed By: #### C BC ####[address] [address] WBC (Bld) [#/Vol] 6.7 10*3/uL Normal 4.4 - 11.3 [facility] Comment on above: Performed By: #### C BC ####[address] [address] Daily Progress Note - Critic al Careon 06-19-2022 Daily Progress Note - Critical Care Normal [facility] Daily Progress Note-Nephrolo gyon 06-19-2022 Daily Progress Note-Nephrology Normal [facility] GLUCOSE-POCTon 06-19-2022 Glucose [Mass/Vol] 150 mg/dL High 74 - 99 [facility] Comment on above: Performed By: #### G MARLEN ####[address] [address] Glucose [Mass/Vol] 154 mg/dL High 74 - 99 [facility] Comment on above: Performed By: #### G MARLEN ####[address] [address] Glucose [Mass/Vol] 144 mg/dL High 74 - 99 [facility] Comment on above: Performed By: #### G MARLEN ####[address] [address] LEGIONELLA AG, URINEon 06-19 LEGIONELLA AG, URINE Canceled [facility] Comment on above: Order Comment: TEST LEGIONELLA AG, URINE WAS CANCELLED, 06/19/2022 07:33 NO SPECIMENRECEIVED IN LAB. Performed By: #### L EGUR ####[id number] [place] [address] MAGNESIUMon 06-19-2022 Magnesium [Mass/Vol] 1.78 mg/dL Normal 1.60 - 2.40 [facility] Comment on above: Performed By: #### M G ####[address] [place] [address] RENAL FUNCTION PANELon 06-19 Albumin [Mass/Vol] 3.0 g/dL Low 3.4 - 5.0 [facility] Comment on above: Performed By: #### R ENAL ####[address] [place] [address] Anion gap [Moles/Vol] 14 mmol/L Normal 10 - 20 [facility] Comment on above: Performed By: #### R ENAL ####[address] [address] Calcium [Mass/Vol] 8.1 mg/dL Low 8.6 - 10.3 [facility] Comment on above: Performed By: #### R ENAL ####[address] [address] Chloride [Moles/Vol] 96 mmol/L Low 98 - 107 [facility] Comment on above: Performed By: #### R ENAL ####[address] [address] Creatinine [Mass/Vol] 2.57 mg/dL High 0.50 - 1.05 [facility] Comment on above: Performed By: #### R ENAL ####[address] [address] GFR/1.73 sq M.predicted among non-blacks MDRD (S/P/Bld) [Vol rate/Area] 21 mL/min/{1.73_m2} Abnormal >90 [facility] Comment on above: Result Comment: CALC ULATIONS OF ESTIMATED GFR ARE PERFORMED USING THE 2020 CKD-EPI STUDY REFIT EQUATION WITHOUT THE RACE VARIABLE FOR THE IDMS-TRACEABLE CREATININE METHODS.https://jasn.asnjournals.org/content/early// N.[id number] Performed By: #### R ENAL ####[address] [address] Glucose [Mass/Vol] 151 mg/dL High 74 - 99 [facility] Comment on above: Performed By: #### R ENAL ####[address] [address] HCO3 (Bld) [Moles/Vol] 26 mmol/L Normal 21 - 32 [facility] Comment on above: Performed By: #### R ENAL ####[address] [address] Phosphate [Mass/Vol] 3.5 mg/dL Normal 2.5 - 4.9 [facility] Comment on above: Result Comment: The performance characteristics of phosphorus testing in heparinized plasma have been validated by the individual laboratory site where testing is performed. Testing on heparinized plasma is not approved by the FDA; however, such approval is not necessary. Performed By: #### R ENAL ####[address] [address] Potassium [Moles/Vol] 4.5 mmol/L Normal 3.5 - 5.3 [facility] Comment on above: Performed By: #### R ENAL ####[address] [address] Sodium [Moles/Vol] 131 mmol/L Low 136 - 145 [facility] Comment on above: Performed By: #### R ENAL ####[address] [address] Urea nitrogen [Mass/Vol] 25 mg/dL High 6 - 23 [facility] Comment on above: Performed By: #### R ENAL ####[address] [address] S.PNEUMONIAE AG,Uon 06-20-19 23 S.PNEUMONIAE AG,U Canceled Normal [facility] Comment on above: Order Comment: TEST S.PNEUMONIAE AG,U WAS CANCELLED, 06/19/2022 07:32 NO SPECIMEN RECEIVEDIN LAB. Performed By: #### S PNAG ####[id number] [place] [address] VANCOMYCIN,TROUGHon 06-20-19 23 VANCOMYCIN,TROUGH 19.7 ug/mL Normal 5.0 - 20.0 [facility] Comment on above: Result Comment: Vanc omycin levels should be interpreted in conjunction with the dose, disease being treated, vancomycin JASON, time of draw (trough concentrations should be obtained just before the next dose at steady-state), and other clinical information. Trough concentrations of 15-20 ug/mL are desired for severe infections. Ref.: Am J Health-Syst Pharm 66: 83-98, 2008. Performed By: #### V ANCT ####[address] [address] ATYPICAL PNEUMONIA PANELon 0 06-18-2022 Lab Specimen Source Aspirate, Tracheal Normal [facility] Comment on above: Performed By: #### A TPPN ####EUROTRAVIS [id number] [address] [address] Admission Risk Screen - Adul ton 06-18-2022 Admission Risk Screen - Adult Normal [facility] BLOOD CULTURE, BACTERIALon 0 06-18-2022 BLOOD CULTURE, BACTERIAL Normal [facility] Comment on above: Performed By: #### B LDC ####[id number] [place] [address] BLOOD CULTURE, BACTERIAL Normal [facility] Comment on above: Performed By: #### B LDC ####[id number] [place] [address] BLOOD CULTURE, BACTERIAL Normal [facility] Comment on above: Performed By: #### B LDC ####[id number] [place] [address] CBCon 06-18-2022 Erythrocyte distribution width (RBC) [Ratio] 13.2 % Normal 11.5 - 14.5 [facility] Comment on above: Performed By: #### C BC ####[address] [address] Hematocrit (Bld) [Volume fraction] 23.8 % Low 36.0 - 46.0 [facility] Comment on above: Performed By: #### C BC ####[address] [address] Hemoglobin (Bld) [Mass/Vol] 7.6 g/dL Low 12.0 - 16.0 [facility] Comment on above: Performed By: #### C BC ####[address] [address] MCHC (RBC) [Mass/Vol] 31.9 g/dL Low 32.0 - 36.0 [facility] Comment on above: Performed By: #### C BC ####[address] [address] MCV (RBC) [Entitic vol] 97 fL Normal 80 - 100 [facility] Comment on above: Performed By: #### C BC ####[address] [address] NUCLEATED RBC 0.0 /100 WBC Normal 0.0 - 0.0 [facility] Comment on above: Performed By: #### C BC ####[address] [address] Platelets (Bld) [#/Vol] 152 10*3/uL Normal 150 - 450 [facility] Comment on above: Performed By: #### C BC ####[address] [address] RBC 2.45 x10E12/L Low 4.00 - 5.20 [facility] Comment on above: Performed By: #### C BC ####[address] [address] WBC (Bld) [#/Vol] 12.5 10*3/uL High 4.4 - 11.3 [facility] Comment on above: Performed By: #### C BC ####[address] [address] COMPREHENSIVE PANELon 2022 Creatinine [Mass/Vol] 3.49 mg/dL High 0.50 - 1.05 [facility] Comment on above: Result Comment: Crystal Millard of corrected resultThis is a corrected result. Previous value was 3.12, verified at 305:45 Performed By: #### C MP ####[address] [address] GFR/1.73 sq M.predicted among non-blacks MDRD (S/P/Bld) [Vol rate/Area] 15 mL/min/{1.73_m2} Abnormal >90 [facility] Comment on above: Result Comment: CALC ULATIONS OF ESTIMATED GFR ARE PERFORMED USING THE 2020 CKD-EPI STUDY REFIT EQUATION WITHOUT THE RACE VARIABLE FOR THE IDMS-TRACEABLE CREATININE METHODS.https://jasn.asnjournals.org/content/early// N.[id number] is a corrected result. Previous value was 17, verified at 305:45 Performed By: #### C MP ####[address] [address] Albumin [Mass/Vol] 3.1 g/dL Low 3.4 - 5.0 [facility] Comment on above: Performed By: #### C MP ####[address] [address] ALP [Catalytic activity/Vol] 83 U/L Normal 33 - 110 [facility] Comment on above: Performed By: #### C MP ####[address] [address] ALT [Catalytic activity/Vol] 13 U/L Normal 7 - 45 [facility] Comment on above: Result Comment: Patty ents treated with Sulfasalazine may generate falsely decreased results for ALT. Performed By: #### C MP ####[address] [address] Anion gap [Moles/Vol] 15 mmol/L Normal 10 - 20 [facility] Comment on above: Performed By: #### C MP ####[address] [address] AST [Catalytic activity/Vol] 15 U/L Normal 9 - 39 [facility] Comment on above: Performed By: #### C MP ####[address] [address] Bilirubin [Mass/Vol] 0.3 mg/dL Normal 0.0 - 1.2 [facility] Comment on above: Performed By: #### C MP ####[id number] [place] [address] Calcium [Mass/Vol] 8.2 mg/dL Low 8.6 - 10.3 [facility] Comment on above: Performed By: #### C MP ####[address] [address] Chloride [Moles/Vol] 90 mmol/L Low 98 - 107 [facility] Comment on above: Performed By: #### C MP ####[address] [address] Glucose [Mass/Vol] 144 mg/dL High 74 - 99 [facility] Comment on above: Performed By: #### C MP ####[address] [address] HCO3 (Bld) [Moles/Vol] 25 mmol/L Normal 21 - 32 [facility] Comment on above: Performed By: #### C MP ####[address] [address] Potassium [Moles/Vol] 4.8 mmol/L Normal 3.5 - 5.3 [facility] Comment on above: Performed By: #### C MP ####[address] [address] Protein [Mass/Vol] 5.5 g/dL Low 6.4 - 8.2 [facility] Comment on above: Performed By: #### C MP ####[address] [address] Sodium [Moles/Vol] 125 mmol/L Low 136 - 145 [facility] Comment on above: Performed By: #### C MP ####[address] [address] Urea nitrogen [Mass/Vol] 36 mg/dL High 6 - 23 [facility] Comment on above: Performed By: #### C MP ####[address] [address] Clinical Intervention - Leatha gay 06-18-2022 Clinical Intervention - Pharmacy Normal [facility] Clinical Intervention - Pharmacy Normal [facility] Covid 19 Resultson 3 SARS-CoV-2 (COVID-19) RNA YASHIRA+probe Ql (Unsp spec) Normal [facility] Discharge Planning [id number] 0 06-18-2022 Discharge Planning Note2 Normal [facility] GLUCOSE-POCTon 06-18-2022 Glucose [Mass/Vol] 123 mg/dL High 74 - 99 [facility] Comment on above: Performed By: #### G MARLEN ####[address] [address] Glucose [Mass/Vol] 165 mg/dL High 74 - 99 [facility] Comment on above: Performed By: #### G MARLEN ####[id number] Glucose [Mass/Vol] 127 mg/dL High 74 - 99 [facility] Comment on above: Performed By: #### G MARLEN ####[address] [address] INFLUENZA A/B, COVID 2019 PC R,SYMPTOMATICon 06-18-2022 INFLUENZA A, PCR Not detected Normal Not Detected [facility] Comment on above: Result Comment: Resp iratory virus testing is performed routinely by PCR for Influenza A/B and RSV. Not Detected results do not preclude Influenza A/B or RSV infections since the adequacy of sample collection or low viral burden may impact the clinical sensitivity of this test method. Performed By: #### C OINP ####[address] [address] INFLUENZA B, PCR Not detected Normal Not Detected [facility] Comment on above: Result Comment: Resp iratory virus testing is performed routinely by PCR for Influenza A/B and RSV. Not Detected results do not preclude Influenza A/B or RSV infections since the adequacy of sample collection or low viral burden may impact the clinical sensitivity of this test method. Performed By: #### C OINP ####[address] [address] SARS-CoV-2 (COVID-19) RNA YASHIRA+probe Ql (Unsp spec) Not detected Normal Not Detected [facility] Comment on above: Result Comment: .Mere s test has received FDA Emergency Use Authorization (EUA) and has beenverified by [facility]. This test is onlyauthorized for the duration of time that circumstances exist to justify theauthorization of the emergency use of in vitro diagnostic tests for thedetection of SARS-CoV-2 virus and/or diagnosis of COVID-19 infection undersection 564(b)(1) of the Act, 21 U.S.C. 360bbb-3(b)(1), unless theauthorization is terminated or revoked sooner.[facility] is certified under CLIA-88 asqualified to perform high complexity testing. [facility] at [address] [place] [address].SARS-CoV-2/Flu/RSV Multiplex Test:Fact sheet for providers: https://www.fda.gov/media/655750/downloadFact sheet for patients: https://www.fda.gov/media/215221/download Performed By: #### C [place]P ####[place] [address] Lab Specimen Source Nasal, Nasopharyngeal Normal [facility] Comment on above: Performed By: #### C OINP ####[place] [address] LEGIONELLA AG, URINEon 06-18 Lab Specimen Source Normal [facility] Comment on above: Order Comment: TEST LEGIONELLA AG, URINE WAS CANCELLED, 06/19/2022 07:33 NO SPECIMENRECEIVED IN LAB. Performed By: #### L EGUR ####[id number] [place] [address] MAGNESIUMon 06-18-2022 Magnesium [Mass/Vol] 1.81 mg/dL Normal 1.60 - 2.40 [facility] Comment on above: Performed By: #### M G ####[id number] Order Reconciliationon 06-18 Order Reconciliation Normal [facility] PHOSPHORUSon 06-18-2022 Phosphate [Mass/Vol] 4.4 mg/dL Normal 2.5 - 4.9 [facility] Comment on above: Result Comment: The performance characteristics of phosphorus testing in heparinized plasma have been validated by the individual laboratory site where testing is performed. Testing on heparinized plasma is not approved by the FDA; however, such approval is not necessary. Performed By: #### P HOS ####[facility] [facility] [place] [address] PROCALCITONINon 06-18-2022 PROCALCITONIN 0.43 ng/mL Abnormal <=0.07 [facility] [facility] [place] on above: Result Comment: Proc alcitonin (PCT) results measured serially canaid in decision-making for antibiotic discontinuation inpatients with suspected or confirmed sepsis in conjunctionwith additional clinical information. Antibioticdiscontinuation may be considered with a change in PCT of>80% from the peak result or when PCT falls below 0.50 ng/mL..Procalcitonin results should not be used in isolation butshould be interpreted in conjunction with additional clinicaland laboratory findings. Procalcitonin results should not beused to guide the initiation of antibiotic therapy..Falsely low PCT values in the presence of bacterial infectionmay occur in early infection, with atypical pathogens,localized infections, and subacute infectious endocarditis..Falsely elevated results outside of severe bacterialinfection/sepsis may be seen in patients with renal failureor insufficiency, severe trauma or simon, recent majorabdominal/cardiac surgery, acute multi-organ failure, rarelyin patients with medullary thyroid carcinoma and rareneuroendocrine tumors, and non-specific interfering antibodies(heterophile antibodies, rheumatoid factor, human anti-mouseantibodies (HAMA), etc)..Performance of the PCT test in pediatric patients (<18yo), women, immunocompromised patients, and patients onimmunomodulatory medications has not been evaluated. Performed By: #### P CALC ####[id number] [place] [address] Patient Profile - Adult v2on 06-18-2022 Patient Profile - Adult v2 Normal [facility] [place]PIRATORY CULT./SM,LOWERon 06-18-2022 RESPIRATORY CULT./SM,LOWER Normal [facility] Comment on above: Performed By: #### R ESPL ####[id number] [place] [address] ARTERIAL FULL PANELon 2022 TRIXIE'S TEST[COLLATERAL CIRCULATION] N/A LB Normal [facility] Comment on above: Order Comment: ETCO2 44 Performed By: #### A FPA4 ####[address] [address] Anion gap [Moles/Vol] 11 mmol/L Normal 10 - 25 [facility] Comment on above: Order Comment: ETCO2 44 Performed By: #### A FPA4 ####[address] [address] APPARATUS Ventilator Normal [facility] Comment on above: Order Comment: ETCO2 44 Performed By: #### A FPA4 ####[address] [address] BASE EXCESS-BLOOD 2.2 mmol/L Normal -2.0 - 3.0 [facility] Comment on above: Order Comment: ETCO2 44 Performed By: #### A FPA4 ####[address] [address] BICARB, CALCULATED 27.3 mmol/L High 22.0 - 26.0 [facility] Comment on above: Order Comment: ETCO2 44 Performed By: #### A FPA4 ####[address] [address] CALCIUM,IONIZED 1.11 mmol/L Normal 1.10 - 1.33 [facility] Comment on above: Order Comment: ETCO2 44 Performed By: #### A FPA4 ####[address] [address] Chloride [Moles/Vol] 91 mmol/L Low 98 - 107 [facility] Comment on above: Order Comment: ETCO2 44 Performed By: #### A FPA4 ####[address] [address] FIO2 30 % Normal [facility] Comment on above: Order Comment: ETCO2 44 Performed By: #### A FPA4 ####[address] [address] Glucose [Mass/Vol] 230 mg/dL High 74 - 99 [facility] Comment on above: Order Comment: ETCO2 44 Performed By: #### A FPA4 ####[address] [address] Hematocrit (Bld) [Volume fraction] 29.0 % Low 36.0 - 46.0 [facility] Comment on above: Order Comment: ETCO2 44 Performed By: #### A FPA4 ####[address] [address] Hemoglobin (Bld) [Mass/Vol] 9.5 g/dL Low 12.0 - 16.0 [facility] Comment on above: Order Comment: ETCO2 44 Performed By: #### A FPA4 ####[address] [address] Lactate [Moles/Vol] 1.9 mmol/L Normal 0.4 - 2.0 [facility] Comment on above: Order Comment: ETCO2 44 Performed By: #### A FPA4 ####[address] [address] OXY HGB 97.8 % Normal 94.0 - 98.0 [facility] Comment on above: Order Comment: ETCO2 44 Performed By: #### A FPA4 ####[address] [address] Oxygen (Bld) [Partial pressure] 117 mm[Hg] High 85 - 95 [facility] Comment on above: Order Comment: ETCO2 44 Performed By: #### A FPA4 ####[address] [address] PATIENT TEMPERATURE 37.0 degrees C Normal [facility] Comment on above: Order Comment: ETCO2 44 Result Comment: NOTE : PATIENT RESULTS ARE NOT CORRECTED FOR TEMPERATURE. Performed By: #### A FPA4 ####[address] [address] PCO2 44 mmHg High 38 - 42 [facility] Comment on above: Order Comment: ETCO2 44 Performed By: #### A FPA4 ####[address] [address] PEEP CMH2O 5.0 cm H2O Normal [facility] Comment on above: Order Comment: ETCO2 44 Performed By: #### A FPA4 ####[address] [address] pH (Bld) 7.40 [pH] Normal 7.38 - 7.42 [facility] Comment on above: Order Comment: ETCO2 44 Performed By: #### A FPA4 ####[address] [address] Potassium [Moles/Vol] 4.8 mmol/L Normal 3.5 - 5.3 [facility] Comment on above: Order Comment: ETCO2 44 Performed By: #### A FPA4 ####[address] [address] SO2 100 % Normal 94 - 100 [facility] Comment on above: Order Comment: ETCO2 44 Performed By: #### A FPA4 ####[address] [address] Sodium [Moles/Vol] 124 mmol/L Low 136 - 145 [facility] Comment on above: Order Comment: ETCO2 44 Performed By: #### A FPA4 ####[address] [address] TIDAL VOLUME 500 mL Normal [facility] Comment on above: Order Comment: ETCO2 44 Performed By: #### A FPA4 ####[address] [address] VENTILATOR RATE 20 bpm Normal [facility] Comment on above: Order Comment: ETCO2 44 Performed By: #### A FPA4 ####[address] [address] CBC AND DIFFERENTIALon 06-17 % AUTOMATED IMMATURE GRAN 0.8 % Normal 0.0 - 0.9 [facility] Comment on above: Result Comment: Nichole ture Granulocyte Count (IG) includes promyelocytes, myelocytes and metamyelocytes but does not include bands. Percent differential counts (%) should be interpreted in the context of the absolute cell counts (cells/L). Performed By: #### C BCDF ####[address] [address] Basophils (Bld) [#/Vol] 0.10 10*3/uL Normal 0.00 - 0.10 [facility] Comment on above: Performed By: #### C BCDF ####[address] [address] Basophils/100 WBC (Bld) 0.5 % Normal 0.0 - 2.0 [facility] Comment on above: Performed By: #### C BCDF ####[address] [address] Eosinophils (Bld) [#/Vol] 0.61 10*3/uL Normal 0.00 - 0.70 [facility] Comment on above: Performed By: #### C BCDF ####[address] [address] Eosinophils/100 WBC (Bld) 3.1 % Normal 0.0 - 6.0 [facility] Comment on above: Performed By: #### C BCDF ####[address] [address] Erythrocyte distribution width (RBC) [Ratio] 13.2 % Normal 11.5 - 14.5 [facility] Comment on above: Performed By: #### C BCDF ####[address] [address] Hematocrit (Bld) [Volume fraction] 29.1 % Low 36.0 - 46.0 [facility] Comment on above: Performed By: #### C BCDF ####[address] [address] Hemoglobin (Bld) [Mass/Vol] 9.6 g/dL Low 12.0 - 16.0 [facility] Comment on above: Performed By: #### C BCDF ####[address] [address] Lymphocytes (Bld) [#/Vol] 0.36 10*3/uL Low 1.20 - 4.80 [facility] Comment on above: Performed By: #### C BCDF ####[address] [address] Lymphocytes/100 WBC (Bld) 1.8 % Normal 13.0 - 44.0 [facility] Comment on above: Performed By: #### C BCDF ####[address] [address] MCHC (RBC) [Mass/Vol] 33.0 g/dL Normal 32.0 - 36.0 [facility] Comment on above: Performed By: #### C BCDF ####[address] [address] MCV (RBC) [Entitic vol] 97 fL Normal 80 - 100 [facility] Comment on above: Performed By: #### C BCDF ####[address] [address] Monocytes (Bld) [#/Vol] 0.82 10*3/uL Normal 0.10 - 1.00 [facility] Comment on above: Performed By: #### C BCDF ####[address] [address] Monocytes/100 WBC (Bld) 4.2 % Normal 2.0 - 10.0 [facility] Comment on above: Performed By: #### C BCDF ####[address] [address] Neutrophils (Bld) [#/Vol] 17.68 10*3/uL High 1.20 - 7.70 [facility] Comment on above: Performed By: #### C BCDF ####[address] [address] Neutrophils/100 WBC (Bld) 89.6 % Normal 40.0 - 80.0 [facility] Comment on above: Performed By: #### C BCDF ####[address] [address] NUCLEATED RBC 0.0 /100 WBC Normal 0.0 - 0.0 [facility] Comment on above: Performed By: #### C BCDF ####[address] [address] Platelets (Bld) [#/Vol] 181 10*3/uL Normal 150 - 450 [facility] Comment on above: Performed By: #### C BCDF ####[address] [address] RBC 3.00 x10E12/L Low 4.00 - 5.20 [facility] Comment on above: Performed By: #### C BCDF ####[address] [address] WBC (Bld) [#/Vol] 19.7 10*3/uL High 4.4 - 11.3 [facility] Comment on above: Performed By: #### C BCDF ####[address] [address] COMPREHENSIVE PANELon 2022 Anion gap [Moles/Vol] 13 mmol/L Normal 10 - 20 [facility] Comment on above: Performed By: #### C MP ####[address] [address] Sodium [Moles/Vol] 124 mmol/L Low 136 - 145 [facility] Comment on above: Performed By: #### C MP ####[address] [address] Albumin [Mass/Vol] 3.6 g/dL Normal 3.4 - 5.0 [facility] Comment on above: Performed By: #### C MP ####[address] [address] ALP [Catalytic activity/Vol] 129 U/L High 33 - 110 [facility] Comment on above: Performed By: #### C MP ####[address] [address] ALT [Catalytic activity/Vol] 18 U/L Normal 7 - 45 [facility] Comment on above: Result Comment: Patty ents treated with Sulfasalazine may generate falsely decreased results for ALT. Performed By: #### C MP ####[address] [address] AST [Catalytic activity/Vol] 24 U/L Normal 9 - 39 [facility] Comment on above: Performed By: #### C MP ####[address] [place] [address] Bilirubin [Mass/Vol] 0.3 mg/dL Normal 0.0 - 1.2 [facility] Comment on above: Performed By: #### C MP ####[address] [address] Calcium [Mass/Vol] 8.8 mg/dL Normal 8.6 - 10.3 [facility] Comment on above: Performed By: #### C MP ####[address] [address] Chloride [Moles/Vol] 88 mmol/L Low 98 - 107 [facility] Comment on above: Performed By: #### C MP ####[address] [address] Creatinine [Mass/Vol] 3.17 mg/dL High 0.50 - 1.05 [facility] Comment on above: Performed By: #### C MP ####[address] [address] GFR/1.73 sq M.predicted among non-blacks MDRD (S/P/Bld) [Vol rate/Area] 17 mL/min/{1.73_m2} Abnormal >90 [facility] Comment on above: Result Comment: CALC ULATIONS OF ESTIMATED GFR ARE PERFORMED USING THE 2020 CKD-EPI STUDY REFIT EQUATION WITHOUT THE RACE VARIABLE FOR THE IDMS-TRACEABLE CREATININE METHODS.https://jasn.asnjournals.org/content/early// N.8054266787 Performed By: #### C MP ####[address] [address] Glucose [Mass/Vol] 241 mg/dL High 74 - 99 [facility] Comment on above: Performed By: #### C MP ####[facility] [place] [address] HCO3 (Bld) [Moles/Vol] 28 mmol/L Normal 21 - 32 [facility] Comment on above: Performed By: #### C MP ####[facility] [place] [address] Potassium [Moles/Vol] 4.8 mmol/L Normal 3.5 - 5.3 [facility] Comment on above: Performed By: #### C MP ####[facility] [place] [address] Protein [Mass/Vol] 6.7 g/dL Normal 6.4 - 8.2 [facility] Comment on above: Performed By: #### C MP ####[id number] [place] [address] Urea nitrogen [Mass/Vol] 31 mg/dL High 6 - 23 [facility] Comment on above: Performed By: #### C MP ####[id number] [place] [address] Electrocardiogram 12 Leadon 06-17-2022 Electrocardiogram 12 Lead Ventricular Rate 93 Atrial Rate 93 P-R Interval 182 QRS Duration 162 Q-T Interval 434 QTC Calculation(Bazett) 539 P Belknap 86 R Belknap 51 T Belknap 81 QRS Count 16 Q Onset 215 P Onset 124 P Offset 184 T Offset 432 QTC Fredericia 502 Diagnosis Class Abnormal Diagnosis Normal sinus rhythm Right bundle branch block Abnormal ECG When compared with ECG of 02-JUN-2022 17:37, Right bundle branch block has replaced Nonspecific intraventricular block QT has lengthened Confirmed by Lamberto Samano ([id number]) on 06/19/2022 7:11:30 AM Normal [facility] LACTATEon 06-17-2022 Lactate [Moles/Vol] 1.5 mmol/L Normal 0.4 - 2.0 [facility] Comment on above: Result Comment: Jacqueline puncture immediately after or during the administration of Metamizole may lead to falsely low results. Testing should be performed immediately prior to Metamizole dosing. Performed By: #### L ACT ####[address] [address] LIPASEon 06-17-2022 Lipase [Catalytic activity/Vol] 23 U/L Normal 9 - 82 [facility] Comment on above: Result Comment: Jacqueline puncture immediately after or during the administration of Metamizole may lead to falsely low results. Testing should be performed immediately prior to Metamizole dosing. O-cbzjsl-e-benzoquinone imine (metabolite of Acetaminophen) will generate erroneously low results in samples for patients that have taken toxic doses of acetaminophen. Performed By: #### L IPAS ####[address] [address] PT/INRon 06-17-2022 PT Coag (PPP) [Time] 10.9 s Normal 9.8 - 13.4 [facility] Comment on above: Performed By: #### P TINR ####[address] [address] PT, INR 0.9 Normal 0.9 - 1.1 [facility] Comment on above: Performed By: #### P TINR ####[address] [address] Provider Note - ED v3on 03-0 Provider Note - ED v3 Normal [facility] TROPONIN I, HIGH SENSITIVITY on 06-17-2022 TROPONIN I, HIGH SENSITIVITY 14 ng/L High 0 - 13 [facility] Comment on above: Result Comment: .Les s than 99th percentile of normal range cutoff-Female and children under 18 years old <14 ng/L; Male <21 ng/L: NegativeRepeat testing should be performed if clinically indicated..Female and children under 18 years old 14-50 ng/L; Male 21-50 ng/L:Consistent with possible cardiac damage and possible increased clinicalrisk. Serial measurements may help to assess extent of myocardial damage..>50 ng/L: Consistent with cardiac damage, increased clinical risk andmyocardial infarction. Serial measurements may help assess extent ofmyocardial damage..NOTE: Children less than 1 year old may have higher baseline troponinlevels and results should be interpreted in conjunction with the overallclinical context..NOTE: Troponin I testing is performed using a differenttesting methodology at [facility] than at [facility]. Direct result comparisons should onlybe made within the same method. Performed By: #### T RPHS ####[address] [place] [address] Triage - EDon 06-17-2022 Triage - ED Normal [facility] VANCOMYCIN,TROUGHon 06-16-19 23 VANCOMYCIN,TROUGH 9.9 ug/mL Normal 5.0 - 20.0 [facility] Comment on above: Result Comment: Vanc omycin levels should be interpreted in conjunction with the dose, disease being treated, vancomycin JASON, time of draw (trough concentrations should be obtained just before the next dose at steady-state), and other clinical information. Trough concentrations of 15-20 ug/mL are desired for severe infections. Ref.: Am J Health-Syst Pharm 66: 83-98, 2008. Performed By: #### V ANCT ####[address] [place] [address] CALCIUM, IONIZEDon CALCIUM,IONIZED Canceled Normal [facility] Comment on above: Order Comment: TEST CALCIUM, IONIZED WAS CANCELLED, 06/09/2022 03:49 No specimen received. Performed By: #### I ONC1 ####[address] [address] CBCon 06-09-2022 Erythrocyte distribution width (RBC) [Ratio] 13.2 % Normal 11.5 - 14.5 [facility] Comment on above: Performed By: #### C BC ####[address] [address] Hematocrit (Bld) [Volume fraction] 26.1 % Low 36.0 - 46.0 [facility] Comment on above: Performed By: #### C BC ####[address] [address] Hemoglobin (Bld) [Mass/Vol] 8.2 g/dL Low 12.0 - 16.0 [facility] Comment on above: Performed By: #### C BC ####[address] [place] [address] MCHC (RBC) [Mass/Vol] 31.4 g/dL Low 32.0 - 36.0 [facility] Comment on above: Performed By: #### C BC ####[address] [address] MCV (RBC) [Entitic vol] 104 fL High 80 - 100 [facility] Comment on above: Performed By: #### C BC ####[address] [address] NUCLEATED RBC 0.0 /100 WBC Normal 0.0 - 0.0 [facility] Comment on above: Performed By: #### C BC ####[address] [address] Platelets (Bld) [#/Vol] 123 10*3/uL Low 150 - 450 [facility] Comment on above: Performed By: #### C BC ####[address] [address] RBC 2.52 x10E12/L Low 4.00 - 5.20 [facility] Comment on above: Performed By: #### C BC ####[address] [address] WBC (Bld) [#/Vol] 7.2 10*3/uL Normal 4.4 - 11.3 [facility] Comment on above: Performed By: #### C BC ####[address] [address] Daily Progress Note-Nephrolo gyon 06-09-2022 Daily Progress Note-Nephrology Normal [facility] Discharge [id number] Discharge Profile2 Normal [facility] GLUCOSE-POCTon 06-09-2022 Glucose [Mass/Vol] 180 mg/dL High 74 - 99 [facility] Comment on above: Performed By: #### G MARLEN ####[address] [address] Glucose [Mass/Vol] 139 mg/dL High 74 - 99 [facility] Comment on above: Performed By: #### G MARLEN ####[address] [place] [address] Glucose [Mass/Vol] 117 mg/dL High 74 - 99 [facility] Comment on above: Performed By: #### G MARLEN ####[facility] [place] [address] Glucose [Mass/Vol] 141 mg/dL High 74 - 99 [facility] Comment on above: Performed By: #### G MARLEN ####[facility] [place] [address] Glucose [Mass/Vol] 141 mg/dL High 74 - 99 [facility] Comment on above: Performed By: #### G MARLEN ####[address] [address] HEPATITIS B SURF ABon 2022 HEP B SURF AB <3.1 Normal <10 [facility] Comment on above: Result Comment: INTE RPRETIVE CRITERIA:<10 mIU/mL....NONREACTIVE>=10 mIU/mL...REACTIVE. Biotin interference may cause falsely decreased results. Patients taking a Biotin dose of up to 5 mg/day should refrain from taking Biotin for 24 hours before sample collection. Providers may contact their local laboratory for further information. Performed By: #### H BAB3 ####[id number] [id number] HEPATITIS B SURFACE AGon HEP.B SURFACE AG Non-Reactive Normal NONREACTIVE [facility] Comment on above: Result Comment: Biot in interference may cause falsely decreased results. Patients taking a Biotin dose of up to 5 mg/day should refrain from taking Biotin for 24 hours before sample collection. Providers may contact their local laboratory for further information. Performed By: #### H BSAG ####[id number] [id number] Lab Specimen Source Normal [facility] Comment on above: Performed By: #### H BSAG ####[id number] [id number] Performed By: #### H BAB3 ####[id number] [id number] MAGNESIUMon 06-09-2022 Magnesium [Mass/Vol] 1.91 mg/dL Normal 1.60 - 2.40 [facility] Comment on above: Performed By: #### M G ####[address] [address] Order Reconciliationon 06-09 Order Reconciliation Normal [facility] RENAL FUNCTION PANELon 06-09 Albumin [Mass/Vol] 2.9 g/dL Low 3.4 - 5.0 [facility] Comment on above: Performed By: #### R ENAL ####[address] [address] Anion gap [Moles/Vol] 9 mmol/L Low 10 - 20 [facility] Comment on above: Performed By: #### R ENAL ####[address] [address] Calcium [Mass/Vol] 8.2 mg/dL Low 8.6 - 10.3 [facility] Comment on above: Performed By: #### R ENAL ####[address] [address] Chloride [Moles/Vol] 100 mmol/L Normal 98 - 107 [facility] Comment on above: Performed By: #### R ENAL ####[address] [address] Creatinine [Mass/Vol] 2.78 mg/dL High 0.50 - 1.05 [facility] Comment on above: Performed By: #### R ENAL ####[address] [address] GFR/1.73 sq M.predicted among non-blacks MDRD (S/P/Bld) [Vol rate/Area] 19 mL/min/{1.73_m2} Abnormal >90 [facility] Comment on above: Result Comment: CALC ULATIONS OF ESTIMATED GFR ARE PERFORMED USING THE 2020 CKD-EPI STUDY REFIT EQUATION WITHOUT THE RACE VARIABLE FOR THE IDMS-TRACEABLE CREATININE METHODS.https://jasn.asnjournals.org/content/early// N.5407560092 Performed By: #### R ENAL ####[address] [place] [address] Glucose [Mass/Vol] 140 mg/dL High 74 - 99 [facility] Comment on above: Performed By: #### R ENAL ####[address] [address] HCO3 (Bld) [Moles/Vol] 27 mmol/L Normal 21 - 32 [facility] Comment on above: Performed By: #### R ENAL ####[address] [address] Phosphate [Mass/Vol] 3.5 mg/dL Normal 2.5 - 4.9 [facility] Comment on above: Result Comment: The performance characteristics of phosphorus testing in heparinized plasma have been validated by the individual laboratory site where testing is performed. Testing on heparinized plasma is not approved by the FDA; however, such approval is not necessary. Performed By: #### R ENAL ####[address] [address] Potassium [Moles/Vol] 4.4 mmol/L Normal 3.5 - 5.3 [facility] Comment on above: Performed By: #### R ENAL ####[address] [address] Sodium [Moles/Vol] 132 mmol/L Low 136 - 145 [facility] Comment on above: Performed By: #### R ENAL ####[address] [address] Urea nitrogen [Mass/Vol] 21 mg/dL Normal 6 - 23 [facility] Comment on above: Performed By: #### R ENAL ####[address] [address] VANCOMYCIN,TROUGHon 06-10-19 23 VANCOMYCIN,TROUGH 17.3 ug/mL Normal 5.0 - 20.0 [facility] Comment on above: Result Comment: Vanc omycin levels should be interpreted in conjunction with the dose, disease being treated, vancomycin JASON, time of draw (trough concentrations should be obtained just before the next dose at steady-state), and other clinical information. Trough concentrations of 15-20 ug/mL are desired for severe infections. Ref.: Am J Health-Syst Pharm 66: 83-98, 2008. Performed By: #### V ANCT ####[address] [address] CBCon 06-08-2022 Erythrocyte distribution width (RBC) [Ratio] 13.3 % Normal 11.5 - 14.5 [facility] Comment on above: Performed By: #### C BC ####[address] [address] Hematocrit (Bld) [Volume fraction] 26.5 % Low 36.0 - 46.0 [facility] Comment on above: Performed By: #### C BC ####[address] [address] Hemoglobin (Bld) [Mass/Vol] 8.1 g/dL Low 12.0 - 16.0 [facility] Comment on above: Performed By: #### C BC ####[address] [address] MCHC (RBC) [Mass/Vol] 30.6 g/dL Low 32.0 - 36.0 [facility] Comment on above: Performed By: #### C BC ####[address] [address] MCV (RBC) [Entitic vol] 104 fL High 80 - 100 [facility] Comment on above: Performed By: #### C BC ####[address] [address] NUCLEATED RBC 0.0 /100 WBC Normal 0.0 - 0.0 [facility] Comment on above: Performed By: #### C BC ####[address] [address] Platelets (Bld) [#/Vol] 110 10*3/uL Low 150 - 450 [facility] Comment on above: Performed By: #### C BC ####[address] [address] RBC 2.56 x10E12/L Low 4.00 - 5.20 [facility] Comment on above: Performed By: #### C BC ####[address] [address] WBC (Bld) [#/Vol] 4.4 10*3/uL Normal 4.4 - 11.3 [facility] Comment on above: Performed By: #### C BC ####[address] [address] Clinical Event Note-[facility] Day Team Updateon 06-08-2022 Clinical Event Note-[facility] Day Team Update Normal [facility] Daily Progress Note - Critic al Careon 06-08-2022 Daily Progress Note - Critical Care Normal [facility] Daily Progress Note-Infectio us Diseaseon 06-08-2022 Daily Progress Note-Infectious Disease Normal [facility] Daily Progress Note-Nephrolo gyon 06-08-2022 Daily Progress Note-Nephrology Normal [facility] GLUCOSE-POCTon 06-08-2022 Glucose [Mass/Vol] 158 mg/dL High 74 - 99 [facility] Comment on above: Performed By: #### G MARLEN ####[address] [address] Glucose [Mass/Vol] 150 mg/dL High 74 - 99 [facility] Comment on above: Performed By: #### G MARLEN ####[address] [address] Glucose [Mass/Vol] 110 mg/dL High 74 - 99 [facility] Comment on above: Performed By: #### G MARLEN ####[address] [address] Glucose [Mass/Vol] 94 mg/dL Normal 74 - 99 [facility] Comment on above: Performed By: #### G MARLEN ####[address] [address] Glucose [Mass/Vol] 116 mg/dL High 74 - 99 [facility] Comment on above: Performed By: #### G MARLEN ####[address] [place] [address] INS DIALYS CATH GREATER THAN 5 YRSon 06-08-2022 INS DIALYS CATH GREATER THAN 5 YRS Normal [facility] MAGNESIUMon 06-08-2022 Magnesium [Mass/Vol] 1.93 mg/dL Normal 1.60 - 2.40 [facility] Comment on above: Performed By: #### M G ####[address] [address] Nutrition Therapy-Assessment on 06-08-2022 Nutrition Therapy-Assessment Normal [facility] RENAL FUNCTION PANELon 06-08 Albumin [Mass/Vol] 3.1 g/dL Low 3.4 - 5.0 [facility] Comment on above: Performed By: #### R ENAL ####[address] [address] Anion gap [Moles/Vol] 9 mmol/L Low 10 - 20 [facility] Comment on above: Performed By: #### R ENAL ####[address] [address] Calcium [Mass/Vol] 8.2 mg/dL Low 8.6 - 10.3 [facility] Comment on above: Performed By: #### R ENAL ####[address] [address] Chloride [Moles/Vol] 98 mmol/L Normal 98 - 107 [facility] Comment on above: Performed By: #### R ENAL ####[address] [address] Creatinine [Mass/Vol] 2.00 mg/dL High 0.50 - 1.05 [facility] Comment on above: Performed By: #### R ENAL ####[address] [address] GFR/1.73 sq M.predicted among non-blacks MDRD (S/P/Bld) [Vol rate/Area] 29 mL/min/{1.73_m2} Abnormal >90 [facility] Comment on above: Result Comment: CALC ULATIONS OF ESTIMATED GFR ARE PERFORMED USING THE 2020 CKD-EPI STUDY REFIT EQUATION WITHOUT THE RACE VARIABLE FOR THE IDMS-TRACEABLE CREATININE METHODS.https://jasn.asnjournals.org/content/early/ N.8234065127 Performed By: #### R ENAL ####[address] [address] Glucose [Mass/Vol] 111 mg/dL High 74 - 99 [facility] Comment on above: Performed By: #### R ENAL ####[address] [address] HCO3 (Bld) [Moles/Vol] 29 mmol/L Normal 21 - 32 [facility] Comment on above: Performed By: #### R ENAL ####[address] [address] Phosphate [Mass/Vol] 2.3 mg/dL Low 2.5 - 4.9 [facility] Comment on above: Result Comment: The performance characteristics of phosphorus testing in heparinized plasma have been validated by the individual laboratory site where testing is performed. Testing on heparinized plasma is not approved by the FDA; however, such approval is not necessary. Performed By: #### R ENAL ####[address] [address] Potassium [Moles/Vol] 3.9 mmol/L Normal 3.5 - 5.3 [facility] Comment on above: Performed By: #### R ENAL ####[address] [address] Sodium [Moles/Vol] 132 mmol/L Low 136 - 145 [facility] Comment on above: Performed By: #### R ENAL ####[address] [address] Urea nitrogen [Mass/Vol] 13 mg/dL Normal 6 - 23 [facility] Comment on above: Performed By: #### R ENAL ####[address] [address] Swallow Evaluation v2-Bedsid e Clinical Swallow, SLPon 06-08-2022 Swallow Evaluation v2-Bedside Clinical Swallow, [employer] Normal [facility] ULTRASOUND GUIDANCE FOR VASC ULAR ACCESSon 06-08-2022 ULTRASOUND GUIDANCE FOR VASCULAR ACCESS Normal [facility] VANCOMYCIN,TROUGHon 06-08-19 23 VANCOMYCIN,TROUGH 24.6 ug/mL Critically high 5.0 - 20.0 [facility] Comment on above: Order Comment: Paulina GUNTER to Alissa Shirley, 06/08/2022 12:50 Result Comment: Vanc omycin levels should be interpreted in conjunction with the dose, disease being treated, vancomycin JASON, time of draw (trough concentrations should be obtained just before the next dose at steady-state), and other clinical information. Trough concentrations of 15-20 ug/mL are desired for severe infections. Ref.: Am J Health-Syst Pharm 66: 83-98, 2009. Hemanth GUNTER to Alissa Shirley, 06/08/2022 12:50 Performed By: #### V ANCT ####[address] [address] CBC AND DIFFERENTIALon 06-07 % AUTOMATED IMMATURE GRAN 0.8 % Normal 0.0 - 0.9 [facility] Comment on above: Result Comment: Nichole ture Granulocyte Count (IG) includes promyelocytes, myelocytes and metamyelocytes but does not include bands. Percent differential counts (%) should be interpreted in the context of the absolute cell counts (cells/L). Performed By: #### C BCDF ####[address] [address] Basophils (Bld) [#/Vol] 0.03 10*3/uL Normal 0.00 - 0.10 [facility] Comment on above: Performed By: #### C BCDF ####[address] [address] Basophils/100 WBC (Bld) 0.6 % Normal 0.0 - 2.0 [facility] Comment on above: Performed By: #### C BCDF ####[address] [address] Eosinophils (Bld) [#/Vol] 0.50 10*3/uL Normal 0.00 - 0.70 [facility] Comment on above: Performed By: #### C BCDF ####[address] [address] Eosinophils/100 WBC (Bld) 9.9 % Normal 0.0 - 6.0 [facility] Comment on above: Performed By: #### C BCDF ####[address] [address] Erythrocyte distribution width (RBC) [Ratio] 13.3 % Normal 11.5 - 14.5 [facility] Comment on above: Performed By: #### C BCDF ####[address] [address] Hematocrit (Bld) [Volume fraction] 22.8 % Low 36.0 - 46.0 [facility] Comment on above: Performed By: #### C BCDF ####[address] [address] Hemoglobin (Bld) [Mass/Vol] 7.1 g/dL Low 12.0 - 16.0 [facility] Comment on above: Performed By: #### C BCDF ####[address] [address] Lymphocytes (Bld) [#/Vol] 0.90 10*3/uL Low 1.20 - 4.80 [facility] Comment on above: Performed By: #### C BCDF ####[address] [address] Lymphocytes/100 WBC (Bld) 17.8 % Normal 13.0 - 44.0 [facility] Comment on above: Performed By: #### C BCDF ####[address] [address] MCHC (RBC) [Mass/Vol] 31.1 g/dL Low 32.0 - 36.0 [facility] Comment on above: Performed By: #### C BCDF ####[address] [address] MCV (RBC) [Entitic vol] 103 fL High 80 - 100 [facility] Comment on above: Performed By: #### C BCDF ####[address] [address] Monocytes (Bld) [#/Vol] 0.53 10*3/uL Normal 0.10 - 1.00 [facility] Comment on above: Performed By: #### C BCDF ####[address] [address] Monocytes/100 WBC (Bld) 10.5 % Normal 2.0 - 10.0 [facility] Comment on above: Performed By: #### C BCDF ####[address] [address] Neutrophils (Bld) [#/Vol] 3.06 10*3/uL Normal 1.20 - 7.70 [facility] Comment on above: Performed By: #### C BCDF ####[address] [address] Neutrophils/100 WBC (Bld) 60.4 % Normal 40.0 - 80.0 [facility] Comment on above: Performed By: #### C BCDF ####[address] [address] NUCLEATED RBC 0.0 /100 WBC Normal 0.0 - 0.0 [facility] Comment on above: Performed By: #### C BCDF ####[address] [address] Platelets (Bld) [#/Vol] 91 10*3/uL Low 150 - 450 [facility] Comment on above: Performed By: #### C BCDF ####[address] [address] RBC 2.21 x10E12/L Low 4.00 - 5.20 [facility] Comment on above: Performed By: #### C BCDF ####[address] [address] WBC (Bld) [#/Vol] 5.1 10*3/uL Normal 4.4 - 11.3 [facility] Comment on above: Performed By: #### C BCDF ####[facility] [place] [address] COMPREHENSIVE PANELon 2022 Albumin [Mass/Vol] 2.8 g/dL Low 3.4 - 5.0 [facility] Comment on above: Performed By: #### C MP ####[facility] [facility] [place] [address] ALP [Catalytic activity/Vol] 61 U/L Normal 33 - 110 [facility] Comment on above: Performed By: #### C MP ####[facility] [place] [address] ALT [Catalytic activity/Vol] 6 U/L Low 7 - 45 [facility] Comment on above: Result Comment: Patty ents treated with Sulfasalazine may generate falsely decreased results for ALT. Performed By: #### C MP ####[address] [address] Anion gap [Moles/Vol] 12 mmol/L Normal 10 - 20 [facility] Comment on above: Performed By: #### C MP ####[facility] [place] [address] AST [Catalytic activity/Vol] 8 U/L Low 9 - 39 [facility] Comment on above: Performed By: #### C MP ####[facility] [place] [address] Bilirubin [Mass/Vol] 0.3 mg/dL Normal 0.0 - 1.2 [facility] Comment on above: Performed By: #### C MP ####[facility] [place] [address] Calcium [Mass/Vol] 7.9 mg/dL Low 8.6 - 10.3 [facility] Comment on above: Performed By: #### C MP ####[facility] [place] [address] Chloride [Moles/Vol] 100 mmol/L Normal 98 - 107 [facility] Comment on above: Performed By: #### C MP ####[address] [address] Creatinine [Mass/Vol] 2.19 mg/dL High 0.50 - 1.05 [facility] Comment on above: Performed By: #### C MP ####[address] [address] GFR/1.73 sq M.predicted among non-blacks MDRD (S/P/Bld) [Vol rate/Area] 26 mL/min/{1.73_m2} Abnormal >90 [facility] Comment on above: Result Comment: CALC ULATIONS OF ESTIMATED GFR ARE PERFORMED USING THE 2020 CKD-EPI STUDY REFIT EQUATION WITHOUT THE RACE VARIABLE FOR THE IDMS-TRACEABLE CREATININE METHODS.https://jasn.asnjournals.org/content/early// N.2676839621 Performed By: #### C MP ####[address] [address] Glucose [Mass/Vol] 101 mg/dL High 74 - 99 [facility] Comment on above: Performed By: #### C MP ####[address] [address] HCO3 (Bld) [Moles/Vol] 26 mmol/L Normal 21 - 32 [facility] Comment on above: Performed By: #### C MP ####[address] [address] Potassium [Moles/Vol] 4.5 mmol/L Normal 3.5 - 5.3 [facility] Comment on above: Performed By: #### C MP ####[address] [address] Protein [Mass/Vol] 5.1 g/dL Low 6.4 - 8.2 [facility] Comment on above: Performed By: #### C MP ####[address] [address] Sodium [Moles/Vol] 133 mmol/L Low 136 - 145 [facility] Comment on above: Performed By: #### C MP ####[address] [address] Urea nitrogen [Mass/Vol] 17 mg/dL Normal 6 - 23 [facility] Comment on above: Performed By: #### C MP ####[address] [address] Daily Progress Note - Critic al Careon 06-07-2022 Daily Progress Note - Critical Care Normal [facility] Daily Progress Note-Infectio us Diseaseon 06-07-2022 Daily Progress Note-Infectious Disease Normal [facility] Daily Progress Note-Nephrolo gyon 06-07-2022 Daily Progress Note-Nephrology Normal [facility] GLUCOSE-POCTon 06-07-2022 Glucose [Mass/Vol] 177 mg/dL High 74 - 99 [facility] Comment on above: Performed By: #### G MARLEN ####[address] [address] Glucose [Mass/Vol] 143 mg/dL High 74 - 99 [facility] Comment on above: Performed By: #### G MARLEN ####[address] [address] Glucose [Mass/Vol] 150 mg/dL High 74 - 99 [facility] Comment on above: Performed By: #### G MARLEN ####[address] [address] Glucose [Mass/Vol] 92 mg/dL Normal 74 - 99 [facility] Comment on above: Performed By: #### G MARLEN ####[address] [address] Glucose [Mass/Vol] 96 mg/dL Normal 74 - 99 [facility] Comment on above: Performed By: #### G MARLEN ####[address] [address] Glucose [Mass/Vol] 97 mg/dL Normal 74 - 99 [facility] Comment on above: Performed By: #### G MARLEN ####[address] [address] MAGNESIUMon 06-07-2022 Magnesium [Mass/Vol] 1.97 mg/dL Normal 1.60 - 2.40 [facility] Comment on above: Performed By: #### M G ####[address] [address] PHOSPHORUSon 06-07-2022 Phosphate [Mass/Vol] 2.4 mg/dL Low 2.5 - 4.9 [facility] Comment on above: Result Comment: The performance characteristics of phosphorus testing in heparinized plasma have been validated by the individual laboratory site where testing is performed. Testing on heparinized plasma is not approved by the FDA; however, such approval is not necessary. Performed By: #### P HOS ####[place] [id number] Rehab Note-attemptedon 06-07 Rehab Note-attempted Normal [facility] VANCOMYCIN,TROUGHon 06-07-19 VANCOMYCIN,TROUGH 34.2 ug/mL Critically high 5.0 - 20.0 [facility] Comment on above: Order Comment: Paulina GUNTER to Chandrika Millern , 06/07/2022 12:51 Result Comment: Vanc omycin levels should be interpreted in conjunction with the dose, disease being treated, vancomycin JASON, time of draw (trough concentrations should be obtained just before the next dose at steady-state), and other clinical information. Trough concentrations of 15-20 ug/mL are desired for severe infections. Ref.: Am J Health-Syst Pharm 66: 83-98, 2008. Hemanth RB to Chandrika Millern , 06/07/2022 12:51 Performed By: #### V ANCT ####[address] [address] BLOOD CULTURE, BACTERIALon 0 06-06-2022 BLOOD CULTURE, BACTERIAL Normal [facility] Comment on above: Performed By: #### B LDC ####[id number] [place] [address] CBCon 06-06-2022 Erythrocyte distribution width (RBC) [Ratio] 13.3 % Normal 11.5 - 14.5 [facility] Comment on above: Performed By: #### C BC ####[address] [place] [address] Hematocrit (Bld) [Volume fraction] 24.9 % Low 36.0 - 46.0 [facility] Comment on above: Performed By: #### C BC ####[address] [address] Hemoglobin (Bld) [Mass/Vol] 7.6 g/dL Low 12.0 - 16.0 [facility] Comment on above: Performed By: #### C BC ####[address] [address] MCHC (RBC) [Mass/Vol] 30.5 g/dL Low 32.0 - 36.0 [facility] Comment on above: Performed By: #### C BC ####[address] [address] MCV (RBC) [Entitic vol] 102 fL High 80 - 100 [facility] Comment on above: Performed By: #### C BC ####[address] [address] NUCLEATED RBC 0.0 /100 WBC Normal 0.0 - 0.0 [facility] Comment on above: Performed By: #### C BC ####[address] [address] Platelets (Bld) [#/Vol] 85 10*3/uL Low 150 - 450 [facility] Comment on above: Performed By: #### C BC ####[address] [address] RBC 2.44 x10E12/L Low 4.00 - 5.20 [facility] Comment on above: Performed By: #### C BC ####[address] [address] WBC (Bld) [#/Vol] 4.4 10*3/uL Normal 4.4 - 11.3 [facility] Comment on above: Performed By: #### C BC ####[address] [address] COMPREHENSIVE PANELon 2022 Albumin [Mass/Vol] 2.9 g/dL Low 3.4 - 5.0 [facility] Comment on above: Performed By: #### C MP ####[address] [address] ALP [Catalytic activity/Vol] 60 U/L Normal 33 - 110 [facility] Comment on above: Performed By: #### C MP ####[address] [address] ALT [Catalytic activity/Vol] 6 U/L Low 7 - 45 [facility] Comment on above: Result Comment: Patty ents treated with Sulfasalazine may generate falsely decreased results for ALT. Performed By: #### C MP ####[address] [address] Anion gap [Moles/Vol] 10 mmol/L Normal 10 - 20 [facility] Comment on above: Performed By: #### C MP ####[address] [address] AST [Catalytic activity/Vol] 8 U/L Low 9 - 39 [facility] Comment on above: Performed By: #### C MP ####[address] [address] Bilirubin [Mass/Vol] 0.3 mg/dL Normal 0.0 - 1.2 [facility] Comment on above: Performed By: #### C MP ####[address] [address] Calcium [Mass/Vol] 8.0 mg/dL Low 8.6 - 10.3 [facility] Comment on above: Performed By: #### C MP ####[address] [address] Chloride [Moles/Vol] 101 mmol/L Normal 98 - 107 [facility] Comment on above: Performed By: #### C MP ####[address] [address] Creatinine [Mass/Vol] 2.01 mg/dL High 0.50 - 1.05 [facility] Comment on above: Performed By: #### C MP ####[address] [address] GFR/1.73 sq M.predicted among non-blacks MDRD (S/P/Bld) [Vol rate/Area] 29 mL/min/{1.73_m2} Abnormal >90 [facility] Comment on above: Result Comment: CALC ULATIONS OF ESTIMATED GFR ARE PERFORMED USING THE 2020 CKD-EPI STUDY REFIT EQUATION WITHOUT THE RACE VARIABLE FOR THE IDMS-TRACEABLE CREATININE METHODS.https://jasn.asnjournals.org/content/early// N.9047221436 Performed By: #### C MP ####[address] [address] Glucose [Mass/Vol] 145 mg/dL High 74 - 99 [facility] Comment on above: Performed By: #### C MP ####[address] [address] HCO3 (Bld) [Moles/Vol] 26 mmol/L Normal 21 - 32 [facility] Comment on above: Performed By: #### C MP ####[address] [address] Potassium [Moles/Vol] 3.7 mmol/L Normal 3.5 - 5.3 [facility] Comment on above: Performed By: #### C MP ####[address] [address] Protein [Mass/Vol] 5.1 g/dL Low 6.4 - 8.2 [facility] Comment on above: Performed By: #### C MP ####[address] [address] Sodium [Moles/Vol] 133 mmol/L Low 136 - 145 [facility] Comment on above: Performed By: #### C MP ####[address] [address] Urea nitrogen [Mass/Vol] 16 mg/dL Normal 6 - 23 [facility] Comment on above: Performed By: #### C MP ####[address] [address] Daily Progress Note - Critic al Careon 06-06-2022 Daily Progress Note - Critical Care Normal [facility] Daily Progress Note-Nephrolo gyon 06-06-2022 Daily Progress Note-Nephrology Normal [facility] GLUCOSE-POCTon 06-06-2022 Glucose [Mass/Vol] 116 mg/dL High 74 - 99 [facility] Comment on above: Performed By: #### G MARLEN ####[address] [address] Glucose [Mass/Vol] 168 mg/dL High 74 - 99 [facility] Comment on above: Performed By: #### G MARLEN ####[address] [address] Glucose [Mass/Vol] 169 mg/dL High 74 - 99 [facility] Comment on above: Performed By: #### G MARLEN ####[address] [address] Glucose [Mass/Vol] 134 mg/dL High 74 - 99 [facility] Comment on above: Performed By: #### G MARLEN ####[address] [address] Glucose [Mass/Vol] 131 mg/dL High 74 - 99 [facility] Comment on above: Performed By: #### G MARLEN ####[address] [address] Glucose [Mass/Vol] 168 mg/dL High 74 - 99 [facility] Comment on above: Performed By: #### G MARLEN ####[address] [address] MAGNESIUMon 06-06-2022 Magnesium [Mass/Vol] 2.10 mg/dL Normal 1.60 - 2.40 [facility] Comment on above: Performed By: #### M G ####[address] [address] PHOSPHORUSon 06-06-2022 Phosphate [Mass/Vol] 2.1 mg/dL Low 2.5 - 4.9 [facility] Comment on above: Result Comment: The performance characteristics of phosphorus testing in heparinized plasma have been validated by the individual laboratory site where testing is performed. Testing on heparinized plasma is not approved by the FDA; however, such approval is not necessary. Performed By: #### P HOS ####[address] [address] PT/INRon 06-06-2022 PT Coag (PPP) [Time] 10.9 s Normal 9.8 - 13.4 [facility] Comment on above: Performed By: #### P TINR ####[address] [address] PT, INR 0.9 Normal 0.9 - 1.1 [facility] Comment on above: Performed By: #### P TINR ####[address] [address] VANCOMYCIN,TROUGHon 06-06-19 23 VANCOMYCIN,TROUGH 24.0 ug/mL Critically high 5.0 - 20.0 [facility] Comment on above: Order Comment: Paulina GUNTER tobethpatel lopez, 06/06/2022 10:46 Result Comment: Vanc omycin levels should be interpreted in conjunction with the dose, disease being treated, vancomycin JASON, time of draw (trough concentrations should be obtained just before the next dose at steady-state), and other clinical information. Trough concentrations of 15-20 ug/mL are desired for severe infections. Ref.: Am J Health-Syst Pharm 66: 83-98, 2008. Hemanth GUNTER tobedwin lopez, 06/06/2022 10:46 Performed By: #### V ANCT ####[address] [address] APTTon 06-05-2022 aPTT Coag (Bld) [Time] 30 s Normal 26 - 39 [facility] Comment on above: Result Comment: THE APTT IS NO LONGER USED FOR MONITORING UNFRACTIONATED HEPARIN THERAPY. FOR MONITORING HEPARIN THERAPY, USE THE HEPARIN ASSAY. Performed By: #### A PTT ####[address] [address] BASIC METABOLIC PANELon 05-13 Anion gap [Moles/Vol] 12 mmol/L Normal 10 - 20 [facility] Comment on above: Performed By: #### B MP ####[address] [address] Calcium [Mass/Vol] 7.8 mg/dL Low 8.6 - 10.3 [facility] Comment on above: Performed By: #### B MP ####[address] [address] Chloride [Moles/Vol] 100 mmol/L Normal 98 - 107 [facility] Comment on above: Performed By: #### B MP ####[address] [address] Creatinine [Mass/Vol] 2.88 mg/dL High 0.50 - 1.05 [facility] Comment on above: Performed By: #### B MP ####[address] [address] GFR/1.73 sq M.predicted among non-blacks MDRD (S/P/Bld) [Vol rate/Area] 19 mL/min/{1.73_m2} Abnormal >90 [facility] Comment on above: Result Comment: CALC ULATIONS OF ESTIMATED GFR ARE PERFORMED USING THE 2020 CKD-EPI STUDY REFIT EQUATION WITHOUT THE RACE VARIABLE FOR THE IDMS-TRACEABLE CREATININE METHODS.https://jasn.asnjournals.org/content// N.8835469778 Performed By: #### B MP ####[address] [address] Glucose [Mass/Vol] 173 mg/dL High 74 - 99 [facility] Comment on above: Performed By: #### B MP ####[address] [address] HCO3 (Bld) [Moles/Vol] 24 mmol/L Normal 21 - 32 [facility] Comment on above: Performed By: #### B MP ####[address] [address] Potassium [Moles/Vol] 3.6 mmol/L Normal 3.5 - 5.3 [facility] Comment on above: Performed By: #### B MP ####[address] [address] Sodium [Moles/Vol] 132 mmol/L Low 136 - 145 [facility] Comment on above: Performed By: #### B MP ####[address] [address] Urea nitrogen [Mass/Vol] 25 mg/dL High 6 - 23 [facility] Comment on above: Performed By: #### B MP ####[address] [address] CALCIUM, IONIZEDon CALCIUM,IONIZED 1.19 mmol/L Normal 1.10 - 1.33 [facility] Comment on above: Performed By: #### I ONC1 ####[address] [address] CBCon 06-05-2022 Erythrocyte distribution width (RBC) [Ratio] 13.5 % Normal 11.5 - 14.5 [facility] Comment on above: Performed By: #### C BC ####[address] [address] Hematocrit (Bld) [Volume fraction] 24.8 % Low 36.0 - 46.0 [facility] Comment on above: Performed By: #### C BC ####[address] [address] Hemoglobin (Bld) [Mass/Vol] 7.8 g/dL Low 12.0 - 16.0 [facility] Comment on above: Performed By: #### C BC ####[address] [address] MCHC (RBC) [Mass/Vol] 31.5 g/dL Low 32.0 - 36.0 [facility] Comment on above: Performed By: #### C BC ####[address] [address] MCV (RBC) [Entitic vol] 101 fL High 80 - 100 [facility] Comment on above: Performed By: #### C BC ####[address] [place] [address] NUCLEATED RBC 0.0 /100 WBC Normal 0.0 - 0.0 [facility] Comment on above: Performed By: #### C BC ####[address] [place] [address] Platelets (Bld) [#/Vol] 84 10*3/uL Low 150 - 450 [facility] Comment on above: Performed By: #### C BC ####[address] [place] [address] RBC 2.46 x10E12/L Low 4.00 - 5.20 [facility] Comment on above: Performed By: #### C BC ####[address] [place] [address] WBC (Bld) [#/Vol] 5.3 10*3/uL Normal 4.4 - 11.3 [facility] Comment on above: Performed By: #### C BC ####[address] [address] Erythrocyte distribution width (RBC) [Ratio] 13.3 % Normal 11.5 - 14.5 [facility] Comment on above: Performed By: #### C BC ####[address] [place] [address] Hematocrit (Bld) [Volume fraction] 24.7 % Low 36.0 - 46.0 [facility] Comment on above: Performed By: #### C BC ####[address] [place] [address] Hemoglobin (Bld) [Mass/Vol] 7.8 g/dL Low 12.0 - 16.0 [facility] Comment on above: Performed By: #### C BC ####[address] [place] [address] MCHC (RBC) [Mass/Vol] 31.6 g/dL Low 32.0 - 36.0 [facility] Comment on above: Performed By: #### C BC ####[address] [address] MCV (RBC) [Entitic vol] 101 fL High 80 - 100 [facility] Comment on above: Performed By: #### C BC ####[address] [address] NUCLEATED RBC 0.0 /100 WBC Normal 0.0 - 0.0 [facility] Comment on above: Performed By: #### C BC ####[address] [address] Platelets (Bld) [#/Vol] 82 10*3/uL Low 150 - 450 [facility] Comment on above: Performed By: #### C BC ####[address] [address] RBC 2.44 x10E12/L Low 4.00 - 5.20 [facility] Comment on above: Performed By: #### C BC ####[address] [address] WBC (Bld) [#/Vol] 5.3 10*3/uL Normal 4.4 - 11.3 [facility] Comment on above: Performed By: #### C BC ####[address] [address] Clinical Event Note-ED Post Discharge Result Follow Up: Compon 06-05-2022 Clinical Event Note-ED Post Discharge Result Follow Up: Comp Normal [facility] Daily Progress Note - Critic al Care-MICUon 06-05-2022 Daily Progress Note - Critical Care-MICU Normal [facility] Daily Progress Note-Nephrolo gyon 06-05-2022 Daily Progress Note-Nephrology Normal [facility] GLUCOSE-POCTon 06-05-2022 Glucose [Mass/Vol] 148 mg/dL High 74 - 99 [facility] Comment on above: Performed By: #### G MARLEN ####[address] [address] Glucose [Mass/Vol] 78 mg/dL Normal 74 - 99 [facility] Comment on above: Performed By: #### G MARLEN ####[address] [address] Glucose [Mass/Vol] 208 mg/dL High 74 - 99 [facility] Comment on above: Performed By: #### G MARLEN ####[address] [address] Glucose [Mass/Vol] 115 mg/dL High 74 - 99 [facility] Comment on above: Performed By: #### G MARLEN ####[address] [address] MAGNESIUMon 06-05-2022 Magnesium [Mass/Vol] 1.98 mg/dL Normal 1.60 - 2.40 [facility] Comment on above: Performed By: #### M G ####[address] [address] Magnesium [Mass/Vol] 1.83 mg/dL Normal 1.60 - 2.40 [facility] Comment on above: Performed By: #### M G ####[address] [address] PHOSPHORUSon 06-05-2022 Phosphate [Mass/Vol] 3.1 mg/dL Normal 2.5 - 4.9 [facility] Comment on above: Result Comment: The performance characteristics of phosphorus testing in heparinized plasma have been validated by the individual laboratory site where testing is performed. Testing on heparinized plasma is not approved by the FDA; however, such approval is not necessary. Performed By: #### P HOS ####[address] [address] RENAL FUNCTION PANELon 06-05 Albumin [Mass/Vol] 2.7 g/dL Low 3.4 - 5.0 [facility] Comment on above: Performed By: #### R ENAL ####[address] [address] Anion gap [Moles/Vol] 12 mmol/L Normal 10 - 20 [facility] Comment on above: Performed By: #### R ENAL ####[address] [address] Calcium [Mass/Vol] 8.1 mg/dL Low 8.6 - 10.3 [facility] Comment on above: Performed By: #### R ENAL ####[address] [address] Chloride [Moles/Vol] 100 mmol/L Normal 98 - 107 [facility] Comment on above: Performed By: #### R ENAL ####[address] [address] Creatinine [Mass/Vol] 2.62 mg/dL High 0.50 - 1.05 [facility] Comment on above: Performed By: #### R ENAL ####[address] [address] GFR/1.73 sq M.predicted among non-blacks MDRD (S/P/Bld) [Vol rate/Area] 21 mL/min/{1.73_m2} Abnormal >90 [facility] Comment on above: Result Comment: CALC ULATIONS OF ESTIMATED GFR ARE PERFORMED USING THE 2020 CKD-EPI STUDY REFIT EQUATION WITHOUT THE RACE VARIABLE FOR THE IDMS-TRACEABLE CREATININE METHODS.https://jasn.asnjournals.org/content/early/ N.8249678939 Performed By: #### R ENAL ####[address] [address] Glucose [Mass/Vol] 150 mg/dL High 74 - 99 [facility] Comment on above: Performed By: #### R ENAL ####[address] [address] HCO3 (Bld) [Moles/Vol] 24 mmol/L Normal 21 - 32 [facility] Comment on above: Performed By: #### R ENAL ####[address] [address] Phosphate [Mass/Vol] 2.7 mg/dL Normal 2.5 - 4.9 [facility] Comment on above: Result Comment: The performance characteristics of phosphorus testing in heparinized plasma have been validated by the individual laboratory site where testing is performed. Testing on heparinized plasma is not approved by the FDA; however, such approval is not necessary. Performed By: #### R ENAL ####[address] [address] Potassium [Moles/Vol] 3.6 mmol/L Normal 3.5 - 5.3 [facility] Comment on above: Performed By: #### R ENAL ####[address] [address] Sodium [Moles/Vol] 132 mmol/L Low 136 - 145 [facility] Comment on above: Performed By: #### R ENAL ####[address] [address] Urea nitrogen [Mass/Vol] 22 mg/dL Normal 6 - 23 [facility] Comment on above: Performed By: #### R ENAL ####[address] [address] VANCOMYCIN,TROUGHon 06-05-19 VANCOMYCIN,TROUGH 19.1 ug/mL Normal 5.0 - 20.0 [facility] Comment on above: Result Comment: Vanc omycin levels should be interpreted in conjunction with the dose, disease being treated, vancomycin JASON, time of draw (trough concentrations should be obtained just before the next dose at steady-state), and other clinical information. Trough concentrations of 15-20 ug/mL are desired for severe infections. Ref.: Am J Health-Syst Pharm 66: 83-98, 2008. Performed By: #### V ANCT ####[address] [address] BLOOD CULTURE, BACTERIALon 0 06-04-2022 BLOOD CULTURE, BACTERIAL Normal [facility] Comment on above: Performed By: #### B LDC ####[id number] [place] [address] BLOOD CULTURE, BACTERIAL Normal [facility] Comment on above: Performed By: #### B LDC ####[id number] [place] [address] CBCon 06-04-2022 Erythrocyte distribution width (RBC) [Ratio] 13.6 % Normal 11.5 - 14.5 [facility] Comment on above: Performed By: #### C BC ####[address] [address] Hematocrit (Bld) [Volume fraction] 30.9 % Low 36.0 - 46.0 [facility] Comment on above: Performed By: #### C BC ####[address] [address] Hemoglobin (Bld) [Mass/Vol] 9.8 g/dL Low 12.0 - 16.0 [facility] Comment on above: Performed By: #### C BC ####[address] [address] MCHC (RBC) [Mass/Vol] 31.7 g/dL Low 32.0 - 36.0 [facility] Comment on above: Performed By: #### C BC ####[address] [address] MCV (RBC) [Entitic vol] 102 fL High 80 - 100 [facility] Comment on above: Performed By: #### C BC ####[address] [address] NUCLEATED RBC 0.0 /100 WBC Normal 0.0 - 0.0 [facility] Comment on above: Performed By: #### C BC ####[address] [address] Platelets (Bld) [#/Vol] 81 10*3/uL Low 150 - 450 [facility] Comment on above: Performed By: #### C BC ####[address] [address] RBC 3.02 x10E12/L Low 4.00 - 5.20 [facility] Comment on above: Performed By: #### C BC ####[address] [address] WBC (Bld) [#/Vol] 10.0 10*3/uL Normal 4.4 - 11.3 [facility] Comment on above: Performed By: #### C BC ####[place] [id number] [facility] [place] [address] COMPREHENSIVE PANELon 2022 Albumin [Mass/Vol] 3.1 g/dL Low 3.4 - 5.0 [facility] Comment on above: Performed By: #### C MP ####[address] [place] [address] ALP [Catalytic activity/Vol] 70 U/L Normal 33 - 110 [facility] Comment on above: Performed By: #### C MP ####[address] [place] [address] ALT [Catalytic activity/Vol] 7 U/L Normal 7 - 45 [facility] Comment on above: Result Comment: Patty ents treated with Sulfasalazine may generate falsely decreased results for ALT. Performed By: #### C MP ####[address] [place] [address] Anion gap [Moles/Vol] 14 mmol/L Normal 10 - 20 [facility] Comment on above: Performed By: #### C MP ####[address] [address] AST [Catalytic activity/Vol] 10 U/L Normal 9 - 39 [facility] Comment on above: Performed By: #### C MP ####[address] [place] [address] Bilirubin [Mass/Vol] 0.4 mg/dL Normal 0.0 - 1.2 [facility] Comment on above: Performed By: #### C MP ####[address] [place] [address] Calcium [Mass/Vol] 8.8 mg/dL Normal 8.6 - 10.3 [facility] Comment on above: Performed By: #### C MP ####[address] [place] [address] Chloride [Moles/Vol] 97 mmol/L Low 98 - 107 [facility] Comment on above: Performed By: #### C MP ####[address] [place] [address] Creatinine [Mass/Vol] 3.25 mg/dL High 0.50 - 1.05 [facility] Comment on above: Performed By: #### C MP ####[address] [address] GFR/1.73 sq M.predicted among non-blacks MDRD (S/P/Bld) [Vol rate/Area] 16 mL/min/{1.73_m2} Abnormal >90 [facility] Comment on above: Result Comment: CALC ULATIONS OF ESTIMATED GFR ARE PERFORMED USING THE 2020 CKD-EPI STUDY REFIT EQUATION WITHOUT THE RACE VARIABLE FOR THE IDMS-TRACEABLE CREATININE METHODS.https://jasn.asnjournals.org/content/early// N.8758971540 Performed By: #### C MP ####[address] [address] Glucose [Mass/Vol] 146 mg/dL High 74 - 99 [facility] Comment on above: Performed By: #### C MP ####[address] [address] HCO3 (Bld) [Moles/Vol] 23 mmol/L Normal 21 - 32 [facility] Comment on above: Performed By: #### C MP ####[address] [address] Potassium [Moles/Vol] 4.0 mmol/L Normal 3.5 - 5.3 [facility] Comment on above: Performed By: #### C MP ####[address] [address] Protein [Mass/Vol] 5.7 g/dL Low 6.4 - 8.2 [facility] Comment on above: Performed By: #### C MP ####[address] [address] Sodium [Moles/Vol] 130 mmol/L Low 136 - 145 [facility] Comment on above: Performed By: #### C MP ####[address] [address] Urea nitrogen [Mass/Vol] 27 mg/dL High 6 - 23 [facility] Comment on above: Performed By: #### C MP ####[address] [address] Covid 19 Resultson 3 SARS-CoV-2 (COVID-19) RNA YASHIRA+probe Ql (Unsp spec) Normal [facility] Daily Progress Note - Critic al Careon 06-04-2022 Daily Progress Note - Critical Care Normal [facility] Daily Progress Note-Infectio us Diseaseon 06-04-2022 Daily Progress Note-Infectious Disease Normal [facility] Daily Progress Note-Nephrolo gyon 06-04-2022 Daily Progress Note-Nephrology Normal [facility] GLUCOSE-POCTon 06-04-2022 Glucose [Mass/Vol] 136 mg/dL High 74 - 99 [facility] Comment on above: Performed By: #### G MARLEN ####[address] [address] Glucose [Mass/Vol] 123 mg/dL High 74 - 99 [facility] Comment on above: Performed By: #### G MARLEN ####[address] [address] Glucose [Mass/Vol] 101 mg/dL High 74 - 99 [facility] Comment on above: Performed By: #### G MARLEN ####[address] [address] Glucose [Mass/Vol] 144 mg/dL High 74 - 99 [facility] Comment on above: Performed By: #### G MARLEN ####[address] [address] MAGNESIUMon 06-04-2022 Magnesium [Mass/Vol] 1.77 mg/dL Normal 1.60 - 2.40 [facility] Comment on above: Performed By: #### M G ####[address] [address] PHOSPHORUSon 06-04-2022 Phosphate [Mass/Vol] 4.2 mg/dL Normal 2.5 - 4.9 [facility] Comment on above: Result Comment: The performance characteristics of phosphorus testing in heparinized plasma have been validated by the individual laboratory site where testing is performed. Testing on heparinized plasma is not approved by the FDA; however, such approval is not necessary. Performed By: #### P HOS ####[address] [address] STAPH/MRSA SCREENon 06-04-19 STAPH/MRSA SCREEN Normal [facility] Comment on above: Performed By: #### S TAPH ####[id number] [place] [address] ARTERIAL FULL PANELon 2022 TRIXIE'S TEST[COLLATERAL CIRCULATION] CHRIS Normal [facility] Comment on above: Performed By: #### A FPA4 ####[address] [address] Anion gap [Moles/Vol] 11 mmol/L Normal 10 - 25 [facility] Comment on above: Performed By: #### A FPA4 ####[address] [address] BASE EXCESS-BLOOD -2.1 mmol/L Low -2.0 - 3.0 [facility] Comment on above: Performed By: #### A FPA4 ####[address] [address] BICARB, CALCULATED 23.7 mmol/L Normal 22.0 - 26.0 [facility] Comment on above: Performed By: #### A FPA4 ####[address] [address] CALCIUM,IONIZED 1.25 mmol/L Normal 1.10 - 1.33 [facility] Comment on above: Performed By: #### A FPA4 ####[address] [address] Chloride [Moles/Vol] 96 mmol/L Low 98 - 107 [facility] Comment on above: Performed By: #### A FPA4 ####[address] [address] FIO2 30 % Normal [facility] Comment on above: Performed By: #### A FPA4 ####[address] [address] Glucose [Mass/Vol] 133 mg/dL High 74 - 99 [facility] Comment on above: Performed By: #### A FPA4 ####[address] [address] Hematocrit (Bld) [Volume fraction] 31.0 % Low 36.0 - 46.0 [facility] Comment on above: Performed By: #### A FPA4 ####[address] [address] Hemoglobin (Bld) [Mass/Vol] 10.3 g/dL Low 12.0 - 16.0 [facility] Comment on above: Performed By: #### A FPA4 ####[address] [address] Lactate [Moles/Vol] 1.2 mmol/L Normal 0.4 - 2.0 [facility] Comment on above: Performed By: #### A FPA4 ####[address] [address] OXY HGB 95.5 % Normal 94.0 - 98.0 [facility] Comment on above: Performed By: #### A FPA4 ####[address] [address] Oxygen (Bld) [Partial pressure] 88 mm[Hg] Normal 85 - 95 [facility] Comment on above: Performed By: #### A FPA4 ####[address] [address] PATIENT TEMPERATURE 37.0 degrees C Normal [facility] Comment on above: Result Comment: NOTE : PATIENT RESULTS ARE NOT CORRECTED FOR TEMPERATURE. Performed By: #### A FPA4 ####[address] [address] PCO2 44 mmHg High 38 - 42 [facility] Comment on above: Performed By: #### A FPA4 ####[address] [address] PEEP CMH2O 5.0 cm H2O Normal [facility] Comment on above: Performed By: #### A FPA4 ####[address] [address] pH (Bld) 7.34 [pH] Low 7.38 - 7.42 [facility] Comment on above: Performed By: #### A FPA4 ####[address] [address] Potassium [Moles/Vol] 5.0 mmol/L Normal 3.5 - 5.3 [facility] Comment on above: Performed By: #### A FPA4 ####[address] [address] PRESSURE SUPPORT 5 cm H2O Normal [facility] Comment on above: Performed By: #### A FPA4 ####[address] [address] SO2 98 % Normal 94 - 100 [facility] Comment on above: Performed By: #### A FPA4 ####[address] [address] Sodium [Moles/Vol] 126 mmol/L Low 136 - 145 [facility] Comment on above: Performed By: #### A FPA4 ####[address] [address] Admission Risk Screen - Adul ton 06-03-2022 Admission Risk Screen - Adult Normal [facility] BLOOD CULTURE, BACTERIALon 0 06-03-2022 BLOOD CULTURE, BACTERIAL Normal [facility] Comment on above: Performed By: #### B LDC ####[id number] [place] [address] CBCon 06-03-2022 Erythrocyte distribution width (RBC) [Ratio] 13.3 % Normal 11.5 - 14.5 [facility] Comment on above: Performed By: #### C BC ####[address] [address] Hematocrit (Bld) [Volume fraction] 32.4 % Low 36.0 - 46.0 [facility] Comment on above: Performed By: #### C BC ####[address] [place] [address] Hemoglobin (Bld) [Mass/Vol] 10.2 g/dL Low 12.0 - 16.0 [facility] Comment on above: Performed By: #### C BC ####[address] [place] [address] MCHC (RBC) [Mass/Vol] 31.5 g/dL Low 32.0 - 36.0 [facility] Comment on above: Performed By: #### C BC ####[address] [address] MCV (RBC) [Entitic vol] 101 fL High 80 - 100 [facility] Comment on above: Performed By: #### C BC ####[address] [address] NUCLEATED RBC 0.0 /100 WBC Normal 0.0 - 0.0 [facility] Comment on above: Performed By: #### C BC ####[address] [address] Platelets (Bld) [#/Vol] 105 10*3/uL Low 150 - 450 [facility] Comment on above: Performed By: #### C BC ####[address] [address] RBC 3.22 x10E12/L Low 4.00 - 5.20 [facility] Comment on above: Performed By: #### C BC ####[address] [address] WBC (Bld) [#/Vol] 15.5 10*3/uL High 4.4 - 11.3 [facility] Comment on above: Performed By: #### C BC ####[address] [address] Consult-Infectious Diseaseon 06-03-2022 Consult-Infectious Disease Normal [facility] Daily Progress Note - Critic al Careon 06-03-2022 Daily Progress Note - Critical Care Normal [facility] Daily Progress Note-Nephrolo gyon 06-03-2022 Daily Progress Note-Nephrology Normal [facility] [facility] Yuus8an 0 06-03-2022 Discharge Planning Note2 Normal [facility] GLUCOSE-POCTon 06-03-2022 Glucose [Mass/Vol] 109 mg/dL High 74 - 99 [facility] Comment on above: Performed By: #### G MARLEN ####[facility] [place] [address] Glucose [Mass/Vol] 122 mg/dL High 74 - 99 [facility] Comment on above: Performed By: #### G MARLEN ####[address] [address] Glucose [Mass/Vol] 132 mg/dL High 74 - 99 [facility] Comment on above: Performed By: #### G MARLEN ####[address] [address] Glucose [Mass/Vol] 125 mg/dL High - [address] [place] [address] Comment on above: Performed By: #### G MARLEN ####[address] [address] Glucose [Mass/Vol] 163 mg/dL High - 99 [facility] Comment on above: Performed By: #### G MARLEN ####[address] [address] MAGNESIUMon 06-03-2022 Magnesium [Mass/Vol] 1.81 mg/dL Normal 1.60 - 2.40 [facility] Comment on above: Performed By: #### M G ####[address] [address] MISCELLANEOUS CULT./SM.BACT. on 06-03-2022 MISCELLANEOUS CULT./SM.BACT. [facility] Comment on above: Performed By: #### M ISC ####[id number] [place] [address] MISCELLANEOUS CULT./SM.BACT. Normal [facility] Comment on above: Performed By: #### M ISCC ####[id number] [place] [address] PROCALCITONINon 06-03-2022 PROCALCITONIN 2.91 ng/mL Abnormal <=0.07 [facility] Comment on above: Result Comment: Proc alcitonin (PCT) results measured serially canaid in decision-making for antibiotic discontinuation inpatients with suspected or confirmed sepsis in conjunctionwith additional clinical information. Antibioticdiscontinuation may be considered with a change in PCT of>80% from the peak result or when PCT falls below 0.50 ng/mL..Procalcitonin results should not be used in isolation butshould be interpreted in conjunction with additional clinicaland laboratory findings. Procalcitonin results should not beused to guide the initiation of antibiotic therapy..Falsely low PCT values in the presence of bacterial infectionmay occur in early infection, with atypical pathogens,localized infections, and subacute infectious endocarditis..Falsely elevated results outside of severe bacterialinfection/sepsis may be seen in patients with renal failureor insufficiency, severe trauma or simon, recent majorabdominal/cardiac surgery, acute multi-organ failure, rarelyin patients with medullary thyroid carcinoma and rareneuroendocrine tumors, and non-specific interfering antibodies(heterophile antibodies, rheumatoid factor, human anti-mouseantibodies (HAMA), etc)..Performance of the PCT test in pediatric patients (<18yo), women, immunocompromised patients, and patients onimmunomodulatory medications has not been evaluated. Performed By: #### P CALC ####[id number] [place] [address] Patient Profile - Adult v2on 06-03-2022 Patient Profile - Adult v2 Normal [facility] RENAL FUNCTION PANELon 06-03 Albumin [Mass/Vol] 3.2 g/dL Low 3.4 - 5.0 [facility] Comment on above: Performed By: #### R ENAL ####[facility] [place] [address] Anion gap [Moles/Vol] 16 mmol/L Normal 10 - 20 [facility] Comment on above: Performed By: #### R ENAL ####[facility] [place] [address] Calcium [Mass/Vol] 8.7 mg/dL Normal 8.6 - 10.3 [facility] Comment on above: Performed By: #### R ENAL ####[address] [address] Chloride [Moles/Vol] 94 mmol/L Low 98 - 107 [facility] Comment on above: Performed By: #### R ENAL ####[address] [address] Creatinine [Mass/Vol] 4.60 mg/dL High 0.50 - 1.05 [facility] Comment on above: Performed By: #### R ENAL ####[address] [address] GFR/1.73 sq M.predicted among non-blacks MDRD (S/P/Bld) [Vol rate/Area] 11 mL/min/{1.73_m2} Abnormal >90 [facility] Comment on above: Result Comment: CALC ULATIONS OF ESTIMATED GFR ARE PERFORMED USING THE 2020 CKD-EPI STUDY REFIT EQUATION WITHOUT THE RACE VARIABLE FOR THE IDMS-TRACEABLE CREATININE METHODS.https://jasn.asnjournals.org/content/early/ N.8693222635 Performed By: #### R ENAL ####[address] [address] Glucose [Mass/Vol] 172 mg/dL High 74 - 99 [facility] Comment on above: Performed By: #### R ENAL ####[address] [address] HCO3 (Bld) [Moles/Vol] 22 mmol/L Normal 21 - 32 [facility] Comment on above: Performed By: #### R ENAL ####[address] [address] Phosphate [Mass/Vol] 5.6 mg/dL High 2.5 - 4.9 [facility] Comment on above: Result Comment: The performance characteristics of phosphorus testing in heparinized plasma have been validated by the individual laboratory site where testing is performed. Testing on heparinized plasma is not approved by the FDA; however, such approval is not necessary. Performed By: #### R ENAL ####[address] [address] Potassium [Moles/Vol] 4.8 mmol/L Normal 3.5 - 5.3 [facility] Comment on above: Performed By: #### R ENAL ####[address] [address] Sodium [Moles/Vol] 127 mmol/L Low 136 - 145 [facility] Comment on above: Performed By: #### R ENAL ####[address] [address] Urea nitrogen [Mass/Vol] 39 mg/dL High - [facility] Comment on above: Performed By: #### R ENAL ####[address] [address] TUNNEL CATH RMon 06-03-2022 TUNNEL CATH RM Normal [facility] UA MICROSCOPICon 06-03-2022 RBC 5-20 Abnormal 0-5 [facility] Comment on above: Performed By: #### U AMIC ####[address] [address] SQUAMOUS EPITH. CELLS 1 /HPF Normal [facility] Comment on above: Performed By: #### U AMIC ####[address] [address] WBC 5-20 Abnormal 0-5 [facility] Comment on above: Performed By: #### U AMIC ####[address] [address] URINALYSIS WITH CULTURE IF I NDICATEDon 06-03-2022 Appearance (U) CLEAR Normal CLEAR [facility] Comment on above: Performed By: #### U ARFX ####[address] [address] Bilirubin Ql (U) Negative Normal NEGATIVE [facility] Comment on above: Performed By: #### U ARFX ####[address] [address] Color (U) YELLOW Normal STRAW,YELLOW [facility] Comment on above: Performed By: #### U ARFX ####[address] [address] Glucose Ql (U) >=500(3+) Abnormal NEGATIVE [facility] Comment on above: Performed By: #### U ARFX ####[address] [address] Hemoglobin Ql (U) SMALL(1+) Abnormal NEGATIVE [facility] Comment on above: Performed By: #### U ARFX ####[address] [address] Ketones Ql (U) Negative Normal NEGATIVE [facility] Comment on above: Performed By: #### U ARFX ####[address] [address] Leukocyte esterase Test strip Ql (U) TRACE Abnormal NEGATIVE [facility] Comment on above: Performed By: #### U ARFX ####[address] [address] Nitrite Ql (U) Negative Normal NEGATIVE [facility] Comment on above: Performed By: #### U ARFX ####[address] [address] pH (U) 8.0 [pH] Normal 5.0 - 8.0 [facility] Comment on above: Performed By: #### U ARFX ####[address] [address] Protein Ql (U) >=500(3+) Abnormal NEGATIVE [facility] Comment on above: Performed By: #### U ARFX ####[address] [address] Specific gravity (U) [Rel density] 1.008 Normal 1.005 - 1.035 [facility] Comment on above: Performed By: #### U ARFX ####[address] [address] Urobilinogen (U) [Mass/Vol] mg/dL Normal 0.0 - 1.9 [facility] Comment on above: Performed By: #### U ARFX ####[address] [address] URINE CULTURE,BACTERIALon URINE CULTURE,BACTERIAL Normal [facility] Comment on above: Performed By: #### U RINC ####[id number] [place] [address] ARTERIAL FULL PANELon 2022 TRIXIE'S TEST[COLLATERAL CIRCULATION] RB N/A Normal [facility] Comment on above: Performed By: #### A FPA4 ####[address] [address] Anion gap [Moles/Vol] 12 mmol/L Normal 10 - 25 [facility] Comment on above: Performed By: #### A FPA4 ####[address] [address] APPARATUS Ventilator Normal [facility] Comment on above: Performed By: #### A FPA4 ####[address] [address] BASE EXCESS-BLOOD -3.3 mmol/L Low -2.0 - 3.0 [facility] Comment on above: Performed By: #### A FPA4 ####[address] [address] BICARB, CALCULATED 23.6 mmol/L Normal 22.0 - 26.0 [facility] Comment on above: Performed By: #### A FPA4 ####[address] [address] CALCIUM,IONIZED 1.21 mmol/L Normal 1.10 - 1.33 [facility] Comment on above: Performed By: #### A FPA4 ####[address] [address] Chloride [Moles/Vol] 95 mmol/L Low 98 - 107 [facility] Comment on above: Performed By: #### A FPA4 ####[address] [address] FIO2 40 % Normal [facility] Comment on above: Performed By: #### A FPA4 ####[address] [address] Glucose [Mass/Vol] 206 mg/dL High 74 - 99 [facility] Comment on above: Performed By: #### A FPA4 ####[address] [address] Hematocrit (Bld) [Volume fraction] 37.0 % Normal 36.0 - 46.0 [facility] Comment on above: Performed By: #### A FPA4 ####[address] [address] Hemoglobin (Bld) [Mass/Vol] 12.2 g/dL Normal 12.0 - 16.0 [facility] Comment on above: Performed By: #### A FPA4 ####[address] [address] Lactate [Moles/Vol] 0.6 mmol/L Normal 0.4 - 2.0 [facility] Comment on above: Performed By: #### A FPA4 ####[address] [address] OXY HGB 94.6 % Normal 94.0 - 98.0 [facility] Comment on above: Performed By: #### A FPA4 ####[address] [address] Oxygen (Bld) [Partial pressure] 90 mm[Hg] Normal 85 - 95 [facility] Comment on above: Performed By: #### A FPA4 ####[address] [address] PATIENT TEMPERATURE 37.0 degrees C Normal [facility] Comment on above: Result Comment: NOTE : PATIENT RESULTS ARE NOT CORRECTED FOR TEMPERATURE. Performed By: #### A FPA4 ####[address] [address] PCO2 49 mmHg High 38 - 42 [facility] Comment on above: Performed By: #### A FPA4 ####[address] [address] PEEP CMH2O 5.0 cm H2O Normal [facility] Comment on above: Performed By: #### A FPA4 ####[id number] [place] [address] pH (Bld) 7.29 [pH] Low 7.38 - 7.42 [facility] Comment on above: Performed By: #### A FPA4 ####[address] [address] Potassium [Moles/Vol] 5.4 mmol/L High 3.5 - 5.3 [facility] Comment on above: Performed By: #### A FPA4 ####[address] [address] SO2 97 % Normal 94 - 100 [facility] Comment on above: Performed By: #### A FPA4 ####[address] [address] Sodium [Moles/Vol] 125 mmol/L Low 136 - 145 [facility] Comment on above: Performed By: #### A FPA4 ####[address] [address] TIDAL VOLUME 500 mL Normal [facility] Comment on above: Performed By: #### A FPA4 ####[address] [address] VENTILATOR RATE 20 bpm Normal [facility] Comment on above: Performed By: #### A FPA4 ####[address] [address] BLOOD CULTURE, BACTERIALon 0 06-02-2022 BLOOD CULTURE, BACTERIAL Normal [facility] Comment on above: Performed By: #### B LDC ####[id number] [place] [address] BLOOD CULTURE, BACTERIAL Normal [facility] Comment on above: Performed By: #### B LDC ####[id number] [place] [address] BNPon 06-02-2022 Natriuretic peptide B (Bld) [Mass/Vol] 191 pg/mL High 0 - 99 [facility] Comment on above: Result Comment: . <1 00 pg/mL - Heart failure agomvbng709-549 pg/mL - Intermediate probability of acute heart. failure exacerbation. Correlate with clinical. context and patient history. >=300 pg/mL - Heart Failure likely. Correlate with clinical. context and patient history.BNP testing is performed using different testingmethodology at [facility] than at [facility]. Direct result comparisons shouldonly be made within the same method. Performed By: #### B NP2 ####[address] [address] CBC AND DIFFERENTIALon 06-02 % AUTOMATED IMMATURE GRAN 0.4 % Normal 0.0 - 0.9 [facility] Comment on above: Result Comment: Nichole ture Granulocyte Count (IG) includes promyelocytes, myelocytes and metamyelocytes but does not include bands. Percent differential counts (%) should be interpreted in the context of the absolute cell counts (cells/L). Performed By: #### C BCDF ####[address] [address] Basophils (Bld) [#/Vol] 0.02 10*3/uL Normal 0.00 - 0.10 [facility] Comment on above: Performed By: #### C BCDF ####[address] [address] Basophils/100 WBC (Bld) 0.2 % Normal 0.0 - 2.0 [facility] Comment on above: Performed By: #### C BCDF ####[address] [address] Eosinophils (Bld) [#/Vol] 0.30 10*3/uL Normal 0.00 - 0.70 [facility] Comment on above: Performed By: #### C BCDF ####[address] [address] Eosinophils/100 WBC (Bld) 2.6 % Normal 0.0 - 6.0 [facility] Comment on above: Performed By: #### C BCDF ####[address] [address] Erythrocyte distribution width (RBC) [Ratio] 13.6 % Normal 11.5 - 14.5 [facility] Comment on above: Performed By: #### C BCDF ####[address] [address] Hematocrit (Bld) [Volume fraction] 40.0 % Normal 36.0 - 46.0 [facility] Comment on above: Performed By: #### C BCDF ####[address] [address] Hemoglobin (Bld) [Mass/Vol] 12.8 g/dL Normal 12.0 - 16.0 [facility] Comment on above: Performed By: #### C BCDF ####[address] [address] Lymphocytes (Bld) [#/Vol] 0.49 10*3/uL Low 1.20 - 4.80 [facility] Comment on above: Performed By: #### C BCDF ####[address] [address] Lymphocytes/100 WBC (Bld) 4.3 % Normal 13.0 - 44.0 [facility] Comment on above: Performed By: #### C BCDF ####[address] [address] MCHC (RBC) [Mass/Vol] 32.0 g/dL Normal 32.0 - 36.0 [facility] Comment on above: Performed By: #### C BCDF ####[address] [address] MCV (RBC) [Entitic vol] 101 fL High 80 - 100 [facility] Comment on above: Performed By: #### C BCDF ####[address] [address] Monocytes (Bld) [#/Vol] 0.68 10*3/uL Normal 0.10 - 1.00 [facility] Comment on above: Performed By: #### C BCDF ####[address] [address] Monocytes/100 WBC (Bld) 5.9 % Normal 2.0 - 10.0 [facility] Comment on above: Performed By: #### C BCDF ####[id number] [place] [address] Neutrophils (Bld) [#/Vol] 9.89 10*3/uL High 1.20 - 7.70 [facility] Comment on above: Performed By: #### C BCDF ####[address] [address] Neutrophils/100 WBC (Bld) 86.6 % Normal 40.0 - 80.0 [facility] Comment on above: Performed By: #### C BCDF ####[address] [address] NUCLEATED RBC 0.0 /100 WBC Normal 0.0 - 0.0 [facility] Comment on above: Performed By: #### C BCDF ####[address] [address] Platelets (Bld) [#/Vol] 113 10*3/uL Low 150 - 450 [facility] Comment on above: Performed By: #### C BCDF ####[address] [address] RBC 3.96 x10E12/L Low 4.00 - 5.20 [facility] Comment on above: Performed By: #### C BCDF ####[address] [address] WBC (Bld) [#/Vol] 11.4 10*3/uL High 4.4 - 11.3 [facility] Comment on above: Performed By: #### C BCDF ####[address] [address] COMPREHENSIVE PANELon 2022 Albumin [Mass/Vol] 4.0 g/dL Normal 3.4 - 5.0 [facility] Comment on above: Performed By: #### C MP ####[address] [address] ALP [Catalytic activity/Vol] 98 U/L Normal 33 - 110 [facility] Comment on above: Performed By: #### C MP ####[address] [address] ALT [Catalytic activity/Vol] 9 U/L Normal 7 - 45 [facility] Comment on above: Result Comment: Patty ents treated with Sulfasalazine may generate falsely decreased results for ALT. Performed By: #### C MP ####[address] [address] Anion gap [Moles/Vol] 14 mmol/L Normal 10 - 20 [facility] Comment on above: Performed By: #### C MP ####[address] [address] AST [Catalytic activity/Vol] 16 U/L Normal 9 - 39 [facility] Comment on above: Result Comment: MILD HEMOLYSIS DETECTED. The result may be falsely elevated due tohemolysis or other interferents. Clinical correlation is recommended.Repeat testing may be considered. Performed By: #### C MP ####[address] [address] Bilirubin [Mass/Vol] 0.5 mg/dL Normal 0.0 - 1.2 [facility] Comment on above: Performed By: #### C MP ####[address] [address] Calcium [Mass/Vol] 9.3 mg/dL Normal 8.6 - 10.3 [facility] Comment on above: Performed By: #### C MP ####[address] [address] Chloride [Moles/Vol] 91 mmol/L Low 98 - 107 [facility] Comment on above: Performed By: #### C MP ####[address] [address] Creatinine [Mass/Vol] 4.38 mg/dL High 0.50 - 1.05 [facility] Comment on above: Performed By: #### C MP ####[address] [address] GFR/1.73 sq M.predicted among non-blacks MDRD (S/P/Bld) [Vol rate/Area] 11 mL/min/{1.73_m2} Abnormal >90 [facility] Comment on above: Result Comment: CALC ULATIONS OF ESTIMATED GFR ARE PERFORMED USING THE 2020 CKD-EPI STUDY REFIT EQUATION WITHOUT THE RACE VARIABLE FOR THE IDMS-TRACEABLE CREATININE METHODS.https://jasn.asnjournals.org/content/early/ N.0749388765 Performed By: #### C MP ####[address] [address] Glucose [Mass/Vol] 176 mg/dL High 74 - 99 [facility] Comment on above: Performed By: #### C MP ####[address] [address] HCO3 (Bld) [Moles/Vol] 26 mmol/L Normal 21 - 32 [facility] Comment on above: Performed By: #### C MP ####[address] [address] Potassium [Moles/Vol] 5.3 mmol/L Normal 3.5 - 5.3 [facility] Comment on above: Result Comment: MILD HEMOLYSIS DETECTED. The result may be falsely elevated due tohemolysis or other interferents. Clinical correlation is recommended.Repeat testing may be considered. Performed By: #### C MP ####[address] [address] Protein [Mass/Vol] 7.2 g/dL Normal 6.4 - 8.2 [facility] Comment on above: Performed By: #### C MP ####[address] [address] Sodium [Moles/Vol] 126 mmol/L Low 136 - 145 [facility] Comment on above: Performed By: #### C MP ####[address] [address] Urea nitrogen [Mass/Vol] 36 mg/dL High 6 - 23 [facility] Comment on above: Performed By: #### C MP ####[facility] [place] [address] Clinical Intervention - Phar macyon 06-02-2022 Clinical Intervention - Pharmacy Normal [facility] Consult-Nephrologyon 023 Consult-Nephrology Normal [facility] D-DIMER, VTE EXCLUSIONon D-DIMER, VTE EXCLUSION Canceled Normal [facility] Comment on above: Order Comment: TEST D-DIMER, VTE EXCLUSION WAS CANCELLED, 06/02/2022 15:51 Result Comment: The VTE Exclusion D-Dimer assay is reported in ng/mL Fibrinogen EquivalentUnits (FEU).Per manufacturers instructions for use, a value of less than 500 ng/mL(FEU) may help to exclude DVT or PE in outpatients when the assay is usedwith a clinical pretest probability assessment. (AEMR must utilize anddocument eCalc Wells Score Deep Vein Thrombosis Risk for DVT exclusiononly; Emergency Department should utilize Guidelines for EmergencyDepartment Use of the VTE Exclusion D-Dimer and Clinical Pretest probabilityassessment model for DVT or PE exclusion.) Performed By: #### D IMEX ####[facility] [place] [address] Electrocardiogram 12 Leadon 06-02-2022 Electrocardiogram 12 Lead Ventricular Rate 104 Atrial Rate 104 P-R Interval 192 QRS Duration 162 Q-T Interval 364 QTC Calculation(Bazett) 478 P Belknap 84 R Belknap 25 T Belknap 84 QRS Count 17 Q Onset 217 P Onset 121 P Offset 178 T Offset 399 QTC Fredericia 437 Diagnosis Class Abnormal Diagnosis Sinus tachycardia Nonspecific intraventricular block Abnormal ECG When compared with ECG of 30-MAY-2022 12:12, Vent. rate has increased BY 41 BPM Inverted T waves have replaced nonspecific T wave abnormality in Anterior leads Confirmed by Julio C Cohen ([id number]) on 06/06/2022 10:09:35 AM Normal [facility] INFLUENZA A/B, COVID 2019 PC R,SYMPTOMATICon 06-02-2022 INFLUENZA A, PCR Not detected Normal Not Detected [facility] Comment on above: Result Comment: Resp iratory virus testing is performed routinely by PCR for Influenza A/B and RSV. Not Detected results do not preclude Influenza A/B or RSV infections since the adequacy of sample collection or low viral burden may impact the clinical sensitivity of this test method. Performed By: #### C [place]INP ####[place] [address] INFLUENZA B, PCR Not detected Normal Not Detected [facility] Comment on above: Result Comment: Resp iratory virus testing is performed routinely by PCR for Influenza A/B and RSV. Not Detected results do not preclude Influenza A/B or RSV infections since the adequacy of sample collection or low viral burden may impact the clinical sensitivity of this test method. Performed By: #### C OINP ####[place] [address] SARS-CoV-2 (COVID-19) RNA YASHIRA+probe Ql (Unsp spec) Not detected Normal Not Detected [facility] Comment on above: Result Comment: .Thi s test has received FDA Emergency Use Authorization (EUA) and has beenverified by [facility]. This test is onlyauthorized for the duration of time that circumstances exist to justify theauthorization of the emergency use of in vitro diagnostic tests for thedetection of SARS-CoV-2 virus and/or diagnosis of COVID-19 infection undersection 564(b)(1) of the Act, 21 U.S.C. 360bbb-3(b)(1), unless theauthorization is terminated or revoked sooner.[facility] is certified under CLIA-88 asqualified to perform high complexity testing. [facility] [facility] located at [address] [place] [address].SARS-CoV-2/Flu/RSV Multiplex Test:Fact sheet for providers: https://www.fda.gov/media/804254/downloadFact sheet for patients: https://www.fda.gov/media/327832/download Performed By: #### C OINP ####[place] [address] Lab Specimen Source Nasal, Nasopharyngeal Normal [facility] Comment on above: Performed By: #### C OINP ####[place] [id number] LACTATEon 06-02-2022 Lactate [Moles/Vol] 0.7 mmol/L Normal 0.4 - 2.0 [facility] Comment on above: Result Comment: Jacqueline puncture immediately after or during the administration of Metamizole may lead to falsely low results. Testing should be performed immediately prior to Metamizole dosing. Performed By: #### L ACT ####[facility] [facility] [place] [address] MAGNESIUMon 06-02-2022 Magnesium [Mass/Vol] 2.12 mg/dL Normal 1.60 - 2.40 [facility] Comment on above: Performed By: #### M G ####[address] [place] [address] Order Reconciliationon 06-02 Order Reconciliation Normal [facility] Provider Note - ED v3on 05-13 Provider Note - ED v3 Normal [facility] Risk Screen - Adult Emergenc yon 06-02-2022 Risk Screen - Adult Emergency Normal [facility] TROPONIN I, HIGH SENSITIVITY on 06-02-2022 TROPONIN I, HIGH SENSITIVITY 21 ng/L High 0 - 13 [facility] Comment on above: Result Comment: .Les s than 99th percentile of normal range cutoff-Female and children under 18 years old <14 ng/L; Male <21 ng/L: NegativeRepeat testing should be performed if clinically indicated..Female and children under 18 years old 14-50 ng/L; Male 21-50 ng/L:Consistent with possible cardiac damage and possible increased clinicalrisk. Serial measurements may help to assess extent of myocardial damage..>50 ng/L: Consistent with cardiac damage, increased clinical risk andmyocardial infarction. Serial measurements may help assess extent ofmyocardial damage..NOTE: Children less than 1 year old may have higher baseline troponinlevels and results should be interpreted in conjunction with the overallclinical context..NOTE: Troponin I testing is performed using a differenttesting methodology at [facility] than at [facility]. Direct result comparisons should onlybe made within the same method. Performed By: #### T RPHS ####[facility] [facility] [facility] [id number] TROPONIN I, HIGH SENSITIVITY 16 ng/L High 0 - 13 [facility] Comment on above: Result Comment: .Les s than 99th percentile of normal range cutoff-Female and children under 18 years old <14 ng/L; Male <21 ng/L: NegativeRepeat testing should be performed if clinically indicated..Female and children under 18 years old 14-50 ng/L; Male 21-50 ng/L:Consistent with possible cardiac damage and possible increased clinicalrisk. Serial measurements may help to assess extent of myocardial damage..>50 ng/L: Consistent with cardiac damage, increased clinical risk andmyocardial infarction. Serial measurements may help assess extent ofmyocardial damage..NOTE: Children less than 1 year old may have higher baseline troponinlevels and results should be interpreted in conjunction with the overallclinical context..NOTE: Troponin I testing is performed using a differenttesting methodology at [facility] than at [facility]. Direct result comparisons should onlybe made within the same method. Performed By: #### T [facility] ####[place] [address] TROPONIN I, HIGH SENSITIVITY 15 ng/L High 0 - 13 [facility] Comment on above: Result Comment: .Les s than 99th percentile of normal range cutoff-Female and children under 18 years old <14 ng/L; Male <21 ng/L: NegativeRepeat testing should be performed if clinically indicated..Female and children under 18 years old 14-50 ng/L; Male 21-50 ng/L:Consistent with possible cardiac damage and possible increased clinicalrisk. Serial measurements may help to assess extent of myocardial damage..>50 ng/L: Consistent with cardiac damage, increased clinical risk andmyocardial infarction. Serial measurements may help assess extent ofmyocardial damage..NOTE: Children less than 1 year old may have higher baseline troponinlevels and results should be interpreted in conjunction with the overallclinical context..NOTE: Troponin I testing is performed using a differenttesting methodology at [facility] than at [facility]. Direct result comparisons should onlybe made within the same method. Performed By: #### T [facility] ####[facility] [place], [place] [address] [id number] Triage - EDon 06-02-2022 Triage - ED Normal [facility] HEPATITIS B SURF ABon 2022 HEP B SURF AB <3.1 Normal <10 [facility] Comment on above: Result Comment: INTE RPRETIVE CRITERIA:<10 mIU/mL....NONREACTIVE>=10 mIU/mL...REACTIVE. Biotin interference may cause falsely decreased results. Patients taking a Biotin dose of up to 5 mg/day should refrain from taking Biotin for 24 hours before sample collection. Providers may contact their local laboratory for further information. Performed By: #### H BAB3 ####[id number] [place] [address] HEPATITIS B SURFACE AGon HEP.B SURFACE AG Non-Reactive Normal NONREACTIVE [facility] Comment on above: Result Comment: Biot in interference may cause falsely decreased results. Patients taking a Biotin dose of up to 5 mg/day should refrain from taking Biotin for 24 hours before sample collection. Providers may contact their local laboratory for further information. Performed By: #### H BSAG ####[id number] [place] [address] US PELVIS TRANSABDOMINAL WIT H TRANSVAGINALon 06-01-2022 US PELVIS TRANSABDOMINAL WITH TRANSVAGINAL Normal [facility] CBCon 05-31-2022 Erythrocyte distribution width (RBC) [Ratio] 14.1 % Normal 11.5 - 14.5 [facility] Comment on above: Performed By: #### C BC ####[place] [id number] [place] [address] Hematocrit (Bld) [Volume fraction] 31.3 % Low 36.0 - 46.0 [facility] Comment on above: Performed By: #### C BC ####[place] [address] [place] [address] Hemoglobin (Bld) [Mass/Vol] 10.4 g/dL Low 12.0 - 16.0 [facility] Comment on above: Performed By: #### C BC ####[address] [address] MCHC (RBC) [Mass/Vol] 33.2 g/dL Normal 32.0 - 36.0 [facility] Comment on above: Performed By: #### C BC ####[place] [id number] [place] [address] MCV (RBC) [Entitic vol] 98 fL Normal 80 - 100 [facility] Comment on above: Performed By: #### C BC ####[address] [address] NUCLEATED RBC 0.0 /100 WBC Normal 0.0 - 0.0 [facility] Comment on above: Performed By: #### C BC ####[address] [address] Platelets (Bld) [#/Vol] 112 10*3/uL Low 150 - 450 [facility] Comment on above: Performed By: #### C BC ####[address] [address] RBC 3.20 x10E12/L Low 4.00 - 5.20 [facility] Comment on above: Performed By: #### C BC ####[address] [address] WBC (Bld) [#/Vol] 6.7 10*3/uL Normal 4.4 - 11.3 [facility] Comment on above: Performed By: #### C BC ####[address] [address] Daily Progress Note - Critic al Care-MICUon 05-31-2022 Daily Progress Note - Critical Care-MICU Normal [facility] Daily Progress Note-Nephrolo gyon 05-31-2022 Daily Progress Note-Nephrology Normal [facility] Discharge [id number] Discharge Profile2 Normal [facility] GLUCOSE-POCTon 05-31-2022 Glucose [Mass/Vol] 135 mg/dL High 74 - 99 [facility] Comment on above: Performed By: #### G MARLEN ####[address] [address] Glucose [Mass/Vol] 90 mg/dL Normal 74 - 99 [facility] Comment on above: Performed By: #### G MARLEN ####[address] [address] Glucose [Mass/Vol] 102 mg/dL High 74 - 99 [facility] Comment on above: Performed By: #### G MARLEN ####[address] [address] HEPATITIS B SURFACE AGon Lab Specimen Source Normal [facility] Comment on above: Performed By: #### H BSAG ####[id number] [place] [address] Performed By: #### H BAB3 ####[id number] [place] [address] MAGNESIUMon 05-31-2022 Magnesium [Mass/Vol] 2.03 mg/dL Normal 1.60 - 2.40 [facility] Comment on above: Performed By: #### M G ####[address] [address] Nutrition Therapy-Assessment on 05-31-2022 Nutrition Therapy-Assessment Normal [facility] Order Reconciliationon 05-31 Order Reconciliation Normal [facility] PT/INRon 05-31-2022 PT Coag (PPP) [Time] 11.1 s Normal 9.8 - 13.4 [facility] Comment on above: Performed By: #### P TINR ####[address] [address] PT, INR 1.0 Normal 0.9 - 1.1 [facility] Comment on above: Performed By: #### P TINR ####[address] [address] RENAL FUNCTION PANELon 05-31 Albumin [Mass/Vol] 3.2 g/dL Low 3.4 - 5.0 [facility] Comment on above: Order Comment: Paulina GUNTER to david santacruzello , 05/31/2022 04:59 Performed By: #### R ENAL ####[address] [place] [address] Anion gap [Moles/Vol] 14 mmol/L Normal 10 - 20 [facility] Comment on above: Order Comment: Gallardo d- RB to david poole , 05/31/2022 04:59 Performed By: #### R ENAL ####[address] [address] Calcium [Mass/Vol] 8.3 mg/dL Low 8.6 - 10.3 [facility] Comment on above: Order Comment: Gallardo d- RB to david poole , 05/31/2022 04:59 Performed By: #### R ENAL ####[address] [address] Chloride [Moles/Vol] 88 mmol/L Low 98 - 107 [facility] Comment on above: Order Comment: Gallardo d- RB to david poole , 05/31/2022 04:59 Performed By: #### R ENAL ####[address] [address] Creatinine [Mass/Vol] 4.58 mg/dL High 0.50 - 1.05 [facility] Comment on above: Order Comment: Gallardo d- RB to david poole , 05/31/2022 04:59 Performed By: #### R ENAL ####[address] [address] GFR/1.73 sq M.predicted among non-blacks MDRD (S/P/Bld) [Vol rate/Area] 11 mL/min/{1.73_m2} Abnormal >90 [facility] Comment on above: Order Comment: Gallardo d- RB to david poole , 05/31/2022 04:59 Result Comment: CALC ULATIONS OF ESTIMATED GFR ARE PERFORMED USING THE 2020 CKD-EPI STUDY REFIT EQUATION WITHOUT THE RACE VARIABLE FOR THE IDMS-TRACEABLE CREATININE METHODS.https://jasn.asnjournals.org/content/early/ N.9696513301 Performed By: #### R ENAL ####[address] [place] [address] Glucose [Mass/Vol] 117 mg/dL High 74 - 99 [facility] Comment on above: Order Comment: Gallardo d- RB to david poole , 05/31/2022 04:59 Performed By: #### R ENAL ####[address] [address] HCO3 (Bld) [Moles/Vol] 23 mmol/L Normal 21 - 32 [facility] Comment on above: Order Comment: Gallardo d- RB to david poole , 05/31/2022 04:59 Performed By: #### R ENAL ####[address] [address] Phosphate [Mass/Vol] 6.3 mg/dL High 2.5 - 4.9 [facility] Comment on above: Order Comment: Gallardo d- RB to david poole , 05/31/2022 04:59 Result Comment: The performance characteristics of phosphorus testing in heparinized plasma have been validated by the individual laboratory site where testing is performed. Testing on heparinized plasma is not approved by the FDA; however, such approval is not necessary. Performed By: #### R ENAL ####[address] [address] Potassium [Moles/Vol] 5.4 mmol/L High 3.5 - 5.3 [facility] Comment on above: Order Comment: Gallardo d- RB to david poole , 05/31/2022 04:59 Performed By: #### R ENAL ####[address] [address] Sodium [Moles/Vol] 120 mmol/L Critically low 136 - 145 [facility] Comment on above: Order Comment: Gallardo d- RB to david poole , 05/31/2022 04:59 Result Comment: Call ed- RB to david poole , 05/31/2022 04:59 Performed By: #### R ENAL ####[address] [address] Urea nitrogen [Mass/Vol] 43 mg/dL High 6 - 23 [facility] Comment on above: Order Comment: Paulina GUNTER to david poole , 05/31/2022 04:59 Performed By: #### R RUBENS ####[address] [address] REPLACE ZAIRE CVC SAME SITEon 05-31-2022 REPLACE ZAIRE CVC SAME SITE Normal [facility] ARTERIAL FULL PANELon 2022 TRIXIE'S TEST[COLLATERAL CIRCULATION] LR YES Normal [facility] Comment on above: Performed By: #### A FPA4 ####[address] [address] Anion gap [Moles/Vol] 8 mmol/L Low 10 - 25 [facility] Comment on above: Performed By: #### A FPA4 ####[address] [address] APPARATUS Ventilator Normal [facility] Comment on above: Performed By: #### A FPA4 ####[address] [address] BASE EXCESS-BLOOD -1.4 mmol/L Normal -2.0 - 3.0 [facility] Comment on above: Performed By: #### A FPA4 ####[address] [address] BICARB, CALCULATED 24.8 mmol/L Normal 22.0 - 26.0 [facility] Comment on above: Performed By: #### A FPA4 ####[address] [address] CALCIUM,IONIZED 1.21 mmol/L Normal 1.10 - 1.33 [facility] Comment on above: Performed By: #### A FPA4 ####[address] [address] Chloride [Moles/Vol] 91 mmol/L Low 98 - 107 [facility] Comment on above: Performed By: #### A FPA4 ####[address] [address] FIO2 50 % Normal [facility] Comment on above: Performed By: #### A FPA4 ####[address] [address] Glucose [Mass/Vol] 110 mg/dL High 74 - 99 [facility] Comment on above: Performed By: #### A FPA4 ####[address] [address] Hematocrit (Bld) [Volume fraction] 34.0 % Low 36.0 - 46.0 [facility] Comment on above: Performed By: #### A FPA4 ####[address] [address] Hemoglobin (Bld) [Mass/Vol] 11.2 g/dL Low 12.0 - 16.0 [facility] Comment on above: Performed By: #### A FPA4 ####[address] [address] Lactate [Moles/Vol] 1.4 mmol/L Normal 0.4 - 2.0 [facility] Comment on above: Performed By: #### A FPA4 ####[address] [address] OXY HGB 97.6 % Normal 94.0 - 98.0 [facility] Comment on above: Performed By: #### A FPA4 ####[address] [address] Oxygen (Bld) [Partial pressure] 195 mm[Hg] High 85 - 95 [facility] Comment on above: Performed By: #### A FPA4 ####[address] [address] PATIENT TEMPERATURE 37.0 degrees C Normal [facility] Comment on above: Result Comment: NOTE : PATIENT RESULTS ARE NOT CORRECTED FOR TEMPERATURE. Performed By: #### A FPA4 ####[address] [address] PCO2 47 mmHg High 38 - 42 [facility] Comment on above: Performed By: #### A FPA4 ####[address] [address] PEEP CMH2O 5.0 cm H2O Normal [facility] Comment on above: Performed By: #### A FPA4 ####[place] [id number] [facility] [place] [address] pH (Bld) 7.33 [pH] Low 7.38 - 7.42 [facility] Comment on above: Performed By: #### A FPA4 ####[address] [place] [address] Potassium [Moles/Vol] 5.7 mmol/L High 3.5 - 5.3 [facility] Comment on above: Performed By: #### A FPA4 ####[address] [place] [address] SO2 99 % Normal 94 - 100 [facility] Comment on above: Performed By: #### A FPA4 ####[address] [address] Sodium [Moles/Vol] 118 mmol/L Low 136 - 145 [facility] Comment on above: Performed By: #### A FPA4 ####[address] [address] TIDAL VOLUME 500 mL Normal [facility] Comment on above: Performed By: #### A FPA4 ####[address] [address] VENTILATOR RATE 18 bpm Normal [facility] Comment on above: Performed By: #### A FPA4 ####[address] [address] Admission Risk Screen - Adul ton 05-30-2022 Admission Risk Screen - Adult Normal [facility] BNPon 05-30-2022 Natriuretic peptide B (Bld) [Mass/Vol] 328 pg/mL High 0 - 99 [facility] Comment on above: Result Comment: . <1 00 pg/mL - Heart failure [id number] pg/mL - Intermediate probability of acute heart. failure exacerbation. Correlate with clinical. context and patient history. >=300 pg/mL - Heart Failure likely. Correlate with clinical. context and patient history.BNP testing is performed using different testingmethodology at [facility] than at [facility]. Direct result comparisons shouldonly be made within the same method. Performed By: #### B NP2 ####[address] [address] CBC AND DIFFERENTIALon 05-30 % AUTOMATED IMMATURE GRAN 0.6 % Normal 0.0 - 0.9 [facility] Comment on above: Result Comment: Nichole ture Granulocyte Count (IG) includes promyelocytes, myelocytes and metamyelocytes but does not include bands. Percent differential counts (%) should be interpreted in the context of the absolute cell counts (cells/L). Performed By: #### C BCDF ####[address] [address] Basophils (Bld) [#/Vol] 0.04 10*3/uL Normal 0.00 - 0.10 [facility] Comment on above: Performed By: #### C BCDF ####[address] [address] Basophils/100 WBC (Bld) 0.6 % Normal 0.0 - 2.0 [facility] Comment on above: Performed By: #### C BCDF ####[address] [address] Eosinophils (Bld) [#/Vol] 0.82 10*3/uL High 0.00 - 0.70 [facility] Comment on above: Performed By: #### C BCDF ####[address] [address] Eosinophils/100 WBC (Bld) 12.5 % Normal 0.0 - 6.0 [facility] Comment on above: Performed By: #### C BCDF ####[address] [address] Erythrocyte distribution width (RBC) [Ratio] 13.9 % Normal 11.5 - 14.5 [facility] Comment on above: Performed By: #### C BCDF ####[address] [address] Hematocrit (Bld) [Volume fraction] 36.8 % Normal 36.0 - 46.0 [facility] Comment on above: Performed By: #### C BCDF ####[address] [address] Hemoglobin (Bld) [Mass/Vol] 11.8 g/dL Low 12.0 - 16.0 [facility] Comment on above: Performed By: #### C BCDF ####[address] [address] Lymphocytes (Bld) [#/Vol] 0.72 10*3/uL Low 1.20 - 4.80 [facility] Comment on above: Performed By: #### C BCDF ####[address] [address] Lymphocytes/100 WBC (Bld) 10.9 % Normal 13.0 - 44.0 [facility] Comment on above: Performed By: #### C BCDF ####[address] [address] MCHC (RBC) [Mass/Vol] 32.1 g/dL Normal 32.0 - 36.0 [facility] Comment on above: Performed By: #### C BCDF ####[address] [address] MCV (RBC) [Entitic vol] 100 fL Normal 80 - 100 [facility] Comment on above: Performed By: #### C BCDF ####[address] [address] Monocytes (Bld) [#/Vol] 0.46 10*3/uL Normal 0.10 - 1.00 [facility] Comment on above: Performed By: #### C BCDF ####[address] [address] Monocytes/100 WBC (Bld) 7.0 % Normal 2.0 - 10.0 [facility] Comment on above: Performed By: #### C BCDF ####[address] [address] Neutrophils (Bld) [#/Vol] 4.50 10*3/uL Normal 1.20 - 7.70 [facility] Comment on above: Performed By: #### C BCDF ####[address] [place] [address] Neutrophils/100 WBC (Bld) 68.4 % Normal 40.0 - 80.0 [facility] Comment on above: Performed By: #### C BCDF ####[address] [address] NUCLEATED RBC 0.0 /100 WBC Normal 0.0 - 0.0 [facility] Comment on above: Performed By: #### C BCDF ####[address] [address] Platelets (Bld) [#/Vol] 108 10*3/uL Low 150 - 450 [facility] Comment on above: Performed By: #### C BCDF ####[address] [address] RBC 3.69 x10E12/L Low 4.00 - 5.20 [facility] Comment on above: Performed By: #### C BCDF ####[address] [address] WBC (Bld) [#/Vol] 6.6 10*3/uL Normal 4.4 - 11.3 [facility] Comment on above: Performed By: #### C BCDF ####[address] [address] COMPREHENSIVE PANELon 2022 Anion gap [Moles/Vol] 13 mmol/L Normal 10 - 20 [facility] Comment on above: Order Comment: Gallardo d- RB to Elizaebth Nichole, 05/30/2022 12:33 Performed By: #### C MP ####[address] [address] Sodium [Moles/Vol] 120 mmol/L Critically low 136 - 145 [facility] Comment on above: Order Comment: Gallardo d- RB to Elizabeth Nichole, 05/30/2022 12:33 Result Comment: Call ed- RB to Elizabeth Nichole, 05/30/2022 12:33 Performed By: #### C MP ####[address] [place] [address] Albumin [Mass/Vol] 3.7 g/dL Normal 3.4 - 5.0 [facility] Comment on above: Order Comment: Gallardo d- RB to Elizabeth Nichole, 05/30/2022 12:33 Performed By: #### C MP ####[address] [place] [address] ALP [Catalytic activity/Vol] 99 U/L Normal 33 - 110 [facility] Comment on above: Order Comment: Gallardo d- RB to Elizabeth Nichole, 05/30/2022 12:33 Performed By: #### C MP ####[address] [place] [address] ALT [Catalytic activity/Vol] 9 U/L Normal 7 - 45 [facility] Comment on above: Order Comment: Gallardo d- RB to Elizabeth Nichole, 05/30/2022 12:33 Result Comment: Patty ents treated with Sulfasalazine may generate falsely decreased results for ALT. Performed By: #### C MP ####[address] [place] [address] AST [Catalytic activity/Vol] 14 U/L Normal 9 - 39 [facility] Comment on above: Order Comment: Gallardo d- RB to Elizabeth Nichole, 05/30/2022 12:33 Performed By: #### C MP ####[address] [place] [address] Bilirubin [Mass/Vol] 0.4 mg/dL Normal 0.0 - 1.2 [facility] Comment on above: Order Comment: Gallardo d- RB to Elizabeth Nichole, 05/30/2022 12:33 Performed By: #### C MP ####[address] [place] [address] Calcium [Mass/Vol] 8.9 mg/dL Normal 8.6 - 10.3 [facility] Comment on above: Order Comment: Gallardo d- RB to Elizabeth Nichole, 05/30/2022 12:33 Performed By: #### C MP ####[address] [address] Chloride [Moles/Vol] 88 mmol/L Low 98 - 107 [facility] Comment on above: Order Comment: Gallardo d- RB to Elizabeth Nichole, 05/30/2022 12:33 Performed By: #### C MP ####[address] [address] Creatinine [Mass/Vol] 4.20 mg/dL High 0.50 - 1.05 [facility] Comment on above: Order Comment: Gallardo d- RB to Elizabeth Nichole, 05/30/2022 12:33 Performed By: #### C MP ####[address] [address] GFR/1.73 sq M.predicted among non-blacks MDRD (S/P/Bld) [Vol rate/Area] 12 mL/min/{1.73_m2} Abnormal >90 [facility] Comment on above: Order Comment: Gallardo d- RB to Elizabeth Nichole, 05/30/2022 12:33 Result Comment: CALC ULATIONS OF ESTIMATED GFR ARE PERFORMED USING THE 2020 CKD-EPI STUDY REFIT EQUATION WITHOUT THE RACE VARIABLE FOR THE IDMS-TRACEABLE CREATININE METHODS.https://jasn.asnjournals.org/content/early/ N.3906608896 Performed By: #### C MP ####[address] [address] Glucose [Mass/Vol] 126 mg/dL High 74 - 99 [facility] Comment on above: Order Comment: Gallardo d- RB to Elizabeth Nichole, 05/30/2022 12:33 Performed By: #### C MP ####[address] [address] HCO3 (Bld) [Moles/Vol] 25 mmol/L Normal 21 - 32 [facility] Comment on above: Order Comment: Gallardo d- RB to Elizabeth Nichole, 05/30/2022 12:33 Performed By: #### C MP ####[address] [address] Potassium [Moles/Vol] 5.8 mmol/L High 3.5 - 5.3 [facility] Comment on above: Order Comment: Paulina d- RB to Elizabeth Nichole, 05/30/2022 12:33 Performed By: #### C MP ####[id number] [facility] [place] [place] [address] Protein [Mass/Vol] 6.5 g/dL Normal 6.4 - 8.2 [facility] Comment on above: Order Comment: Gallardo d- RB to Elizabeth Nichole, 05/30/2022 12:33 Performed By: #### C MP ####[address] [place] [address] Urea nitrogen [Mass/Vol] 38 mg/dL High 6 - 23 [facility] Comment on above: Order Comment: Gallardo d- RB to Elizabeth Nichole, 05/30/2022 12:33 Performed By: #### C MP ####[address] [address] CORONAVIRUS 2019, SCREEN ASY MPTOMATICon 05-30-2022 SARS-CoV-2 (COVID-19) RNA YASHIRA+probe Ql (Unsp spec) Not detected Normal Not Detected [facility] Comment on above: Result Comment: .Mere s test has received FDA Emergency Use Authorization (EUA) and has beenverified by [facility]. This test is onlyauthorized for the duration of time that circumstances exist to justify theauthorization of the emergency use of in vitro diagnostic tests for thedetection of SARS-CoV-2 virus and/or diagnosis of COVID-19 infection undersection 564(b)(1) of the Act, 21 U.S.C. 360bbb-3(b)(1), unless theauthorization is terminated or revoked sooner.[facility] is certified under CLIA-88 asqualified to perform high complexity testing. [facility] [place] at [address] [id number].SARS-CoV-2/Flu/RSV Multiplex Test:Fact sheet for providers: https://www.fda.gov/media/860436/downloadFact sheet for patients: https://www.fda.gov/media/695747/download Performed By: #### C OVSC ####[address] [place] [address] Lab Specimen Source Nasal, Nasopharyngeal Normal [facility] Comment on above: Performed By: #### C OVSC ####[address] [address] Clinical Intervention - Phar macyon 05-30-2022 Clinical Intervention - Pharmacy Normal [facility] Consult-Nephrologyon 023 Consult-Nephrology Normal [facility] Covid 19 Resultson 3 SARS-CoV-2 (COVID-19) RNA YASHIRA+probe Ql (Unsp spec) Normal [facility] Electrocardiogram 12 Leadon 05-30-2022 Electrocardiogram 12 Lead Ventricular Rate 63 Atrial Rate 63 P-R Interval 210 QRS Duration 176 Q-T Interval 502 QTC Calculation(Bazett) 513 P Belknap 92 R Belknap 48 T Belknap 62 QRS Count 10 Q Onset 212 P Onset 107 P Offset 171 T Offset 463 QTC Fredericia 510 Diagnosis Class Abnormal Diagnosis Sinus rhythm with 1st degree AV block Nonspecific intraventricular block Nonspecific T wave abnormality Abnormal ECG When compared with ECG of 27-JAN-2022 19:41, QRS duration has increased Confirmed by Rossana Fabian ([id number]) on 06/18/2022 5:23:40 PM Normal [facility] GLUCOSE-POCTon 05-30-2022 Glucose [Mass/Vol] 96 mg/dL Normal 74 - 99 [facility] Comment on above: Performed By: #### G MARLEN ####[address] [address] MAGNESIUMon 05-30-2022 Magnesium [Mass/Vol] 2.16 mg/dL Normal 1.60 - 2.40 [facility] Comment on above: Performed By: #### M G ####[address] [address] PHOSPHORUSon 05-30-2022 Phosphate [Mass/Vol] 6.3 mg/dL High 2.5 - 4.9 [facility] Comment on above: Result Comment: The performance characteristics of phosphorus testing in heparinized plasma have been validated by the individual laboratory site where testing is performed. Testing on heparinized plasma is not approved by the FDA; however, such approval is not necessary. Performed By: #### P HOS ####[address] [place] [address] PT/INRon 05-30-2022 PT Coag (PPP) [Time] 10.6 s Normal 9.8 - 13.4 [facility] Comment on above: Performed By: #### P TINR ####[address] [address] PT, INR 0.9 Normal 0.9 - 1.1 [facility] Comment on above: Performed By: #### P TINR ####[address] [address] Patient Profile - Adult v2on 05-30-2022 Patient Profile - Adult v2 Normal [facility] Provider Note - ED v3on 05-12 Provider Note - ED v3 Normal [facility] Risk Screen - Adult Emergenc yon 05-30-2022 Risk Screen - Adult Emergency Normal [facility] TYPE + SCREENon 05-30-2022 ABO TYPE O Normal [facility] Comment on above: Performed By: #### T +S ####[address] [address] RH TYPE Positive Normal [facility] Comment on above: Performed By: #### T +S ####[address] [address] Triage - EDon 05-30-2022 Triage - ED Normal [facility] CBCon 01-31-2022 Erythrocyte distribution width (RBC) [Ratio] 12.8 % Normal 11.5 - 14.5 [facility] Comment on above: Performed By: #### C BC ####[address] [address] Hematocrit (Bld) [Volume fraction] 30.1 % Low 36.0 - 46.0 [facility] Comment on above: Performed By: #### C BC ####[address] [address] Hemoglobin (Bld) [Mass/Vol] 9.5 g/dL Low 12.0 - 16.0 [facility] Comment on above: Performed By: #### C BC ####[address] [address] MCHC (RBC) [Mass/Vol] 31.6 g/dL Low 32.0 - 36.0 [facility] Comment on above: Performed By: #### C BC ####[address] [address] MCV (RBC) [Entitic vol] 100 fL Normal 80 - 100 [facility] Comment on above: Performed By: #### C BC ####[address] [address] NUCLEATED RBC 0.0 /100 WBC Normal 0.0 - 0.0 [facility] Comment on above: Performed By: #### C BC ####[address] [address] Platelets (Bld) [#/Vol] 147 10*3/uL Low 150 - 450 [facility] Comment on above: Performed By: #### C BC ####[address] [address] RBC 3.01 x10E12/L Low 4.00 - 5.20 [facility] Comment on above: Performed By: #### C BC ####[address] [address] WBC (Bld) [#/Vol] 6.1 10*3/uL Normal 4.4 - 11.3 [facility] Comment on above: Performed By: #### C BC ####[address] [address] Daily Progress Note - Critic al Careon 01-31-2022 Daily Progress Note - Critical Care Normal [facility] Discharge [id number] Discharge Profile2 Normal [facility] GLUCOSE-POCTon 01-31-2022 Glucose [Mass/Vol] 128 mg/dL High 74 - 99 [facility] Comment on above: Performed By: #### G MARLEN ####[facility] [facility] [place] [address] Glucose [Mass/Vol] 132 mg/dL High 74 - 99 [facility] Comment on above: Performed By: #### G MARELN ####[facility] [place] [address] HEPATITIS B SURF ABon 2021 HEP B SURF AB <3.1 Normal <10 [facility] Comment on above: Result Comment: INTE RPRETIVE CRITERIA:<10 mIU/mL....NONREACTIVE>=10 mIU/mL...REACTIVE. Biotin interference may cause falsely decreased results. Patients taking a Biotin dose of up to 5 mg/day should refrain from taking Biotin for 24 hours before sample collection. Providers may contact their local laboratory for further information. Performed By: #### H BAB3 ####[id number] [place] [address] Order Reconciliationon 01-31 Order Reconciliation Normal [facility] PROCALCITONINon 01-31-2022 PROCALCITONIN 1.26 ng/mL Abnormal <=0.07 [facility] Comment on above: Result Comment: Proc alcitonin (PCT) results measured serially canaid in decision-making for antibiotic discontinuation inpatients with suspected or confirmed sepsis in conjunctionwith additional clinical information. Antibioticdiscontinuation may be considered with a change in PCT of>80% from the peak result or when PCT falls below 0.50 ng/mL..Procalcitonin results should not be used in isolation butshould be interpreted in conjunction with additional clinicaland laboratory findings. Procalcitonin results should not beused to guide the initiation of antibiotic therapy..Falsely low PCT values in the presence of bacterial infectionmay occur in early infection, with atypical pathogens,localized infections, and subacute infectious endocarditis..Falsely elevated results outside of severe bacterialinfection/sepsis may be seen in patients with renal failureor insufficiency, severe trauma or simon, recent majorabdominal/cardiac surgery, acute multi-organ failure, rarelyin patients with medullary thyroid carcinoma and rareneuroendocrine tumors, and non-specific interfering antibodies(heterophile antibodies, rheumatoid factor, human anti-mouseantibodies (HAMA), etc)..Performance of the PCT test in pediatric patients (<18yo), women, immunocompromised patients, and patients onimmunomodulatory medications has not been evaluated. Performed By: #### P CALC ####[id number] [place] [address] RENAL FUNCTION PANELon 01-31 Albumin [Mass/Vol] 3.3 g/dL Low 3.4 - 5.0 [facility] Comment on above: Performed By: #### R ENAL ####[address] [address] Anion gap [Moles/Vol] 14 mmol/L Normal 10 - 20 [facility] Comment on above: Performed By: #### R ENAL ####[address] [address] Calcium [Mass/Vol] 8.9 mg/dL Normal 8.6 - 10.3 [facility] Comment on above: Performed By: #### R ENAL ####[address] [address] Chloride [Moles/Vol] 100 mmol/L Normal 98 - 107 [facility] Comment on above: Performed By: #### R ENAL ####[address] [address] Creatinine [Mass/Vol] 2.81 mg/dL High 0.50 - 1.05 [facility] Comment on above: Performed By: #### R ENAL ####[address] [address] GFR/1.73 sq M.predicted among non-blacks MDRD (S/P/Bld) [Vol rate/Area] 19 mL/min/{1.73_m2} Abnormal >90 [facility] Comment on above: Result Comment: CALC ULATIONS OF ESTIMATED GFR ARE PERFORMED USING THE 2020 CKD-EPI STUDY REFIT EQUATION WITHOUT THE RACE VARIABLE FOR THE IDMS-TRACEABLE CREATININE METHODS.https://jasn.asnjournals.org/content/early// N.2302086319 Performed By: #### R ENAL ####[address] [address] Glucose [Mass/Vol] 126 mg/dL High 74 - 99 [facility] Comment on above: Performed By: #### R ENAL ####[address] [address] HCO3 (Bld) [Moles/Vol] 27 mmol/L Normal 21 - 32 [facility] Comment on above: Performed By: #### R ENAL ####[address] [address] Phosphate [Mass/Vol] 2.9 mg/dL Normal 2.5 - 4.9 [facility] Comment on above: Result Comment: The performance characteristics of phosphorus testing in heparinized plasma have been validated by the individual laboratory site where testing is performed. Testing on heparinized plasma is not approved by the FDA; however, such approval is not necessary. Performed By: #### R ENAL ####[address] [address] Potassium [Moles/Vol] 3.5 mmol/L Normal 3.5 - 5.3 [facility] Comment on above: Performed By: #### R ENAL ####[address] [address] Sodium [Moles/Vol] 137 mmol/L Normal 136 - 145 [facility] Comment on above: Performed By: #### R ENAL ####[address] [address] Urea nitrogen [Mass/Vol] 12 mg/dL Normal 6 - 23 [facility] Comment on above: Performed By: #### R ENAL ####[address] [address] CBCon 01-30-2022 Erythrocyte distribution width (RBC) [Ratio] 12.9 % Normal 11.5 - 14.5 [facility] Comment on above: Performed By: #### C BC ####[address] [address] Hematocrit (Bld) [Volume fraction] 29.1 % Low 36.0 - 46.0 [facility] Comment on above: Performed By: #### C BC ####[address] [address] Hemoglobin (Bld) [Mass/Vol] 9.3 g/dL Low 12.0 - 16.0 [facility] Comment on above: Performed By: #### C BC ####[address] [address] MCHC (RBC) [Mass/Vol] 32.0 g/dL Normal 32.0 - 36.0 [facility] Comment on above: Performed By: #### C BC ####[address] [address] MCV (RBC) [Entitic vol] 99 fL Normal 80 - 100 [facility] Comment on above: Performed By: #### C BC ####[address] [address] NUCLEATED RBC 0.0 /100 WBC Normal 0.0 - 0.0 [facility] Comment on above: Performed By: #### C BC ####[address] [address] Platelets (Bld) [#/Vol] 167 10*3/uL Normal 150 - 450 [facility] Comment on above: Performed By: #### C BC ####[address] [address] RBC 2.95 x10E12/L Low 4.00 - 5.20 [facility] Comment on above: Performed By: #### C BC ####[address] [address] WBC (Bld) [#/Vol] 7.3 10*3/uL Normal 4.4 - 11.3 [facility] Comment on above: Performed By: #### C BC ####[address] [address] Clinical Note - Pharmacy v2o n 10-22-2022 Clinical Note - Pharmacy v2 Normal [facility] Daily Progress Note - Critic al Careon 01-30-2022 Daily Progress Note - Critical Care Normal [facility] Daily Progress Note-Nephrolo gyon 01-30-2022 Daily Progress Note-Nephrology Normal [facility] GLUCOSE-POCTon 01-30-2022 Glucose [Mass/Vol] 142 mg/dL High 74 - 99 [facility] Comment on above: Performed By: #### G MARLEN ####[facility] [place] [address] Glucose [Mass/Vol] 117 mg/dL High 74 - 99 [facility] Comment on above: Result Comment: RN/M D NOTIFIED Performed By: #### G MARLEN ####[id number] [place] [address] Glucose [Mass/Vol] 109 mg/dL High 74 - 99 [facility] Comment on above: Result Comment: RN/M D NOTIFIED Performed By: #### G MARLEN ####[address] [address] Glucose [Mass/Vol] 83 mg/dL Normal 74 - 99 [facility] Comment on above: Result Comment: RN/M D NOTIFIED Performed By: #### G MARLEN ####[address] [address] MAGNESIUMon 01-30-2022 Magnesium [Mass/Vol] 1.90 mg/dL Normal 1.60 - 2.40 [facility] Comment on above: Performed By: #### M G ####[address] [address] RENAL FUNCTION PANELon 01-30 Albumin [Mass/Vol] 3.2 g/dL Low 3.4 - 5.0 [facility] Comment on above: Performed By: #### R ENAL ####[facility] [place] [address] Anion gap [Moles/Vol] 11 mmol/L Normal - [facility] Comment on above: Performed By: #### R ENAL ####[address] [place] [address] Calcium [Mass/Vol] 8.7 mg/dL Normal 8.6 - 10.3 [facility] Comment on above: Performed By: #### R ENAL ####[address] [address] Chloride [Moles/Vol] 101 mmol/L Normal 98 - 107 [facility] Comment on above: Performed By: #### R ENAL ####[address] [address] Creatinine [Mass/Vol] 2.92 mg/dL High 0.50 - 1.05 [facility] Comment on above: Performed By: #### R ENAL ####[address] [address] GFR/1.73 sq M.predicted among non-blacks MDRD (S/P/Bld) [Vol rate/Area] 18 mL/min/{1.73_m2} Abnormal >90 [facility] Comment on above: Result Comment: CALC ULATIONS OF ESTIMATED GFR ARE PERFORMED USING THE 2020 CKD-EPI STUDY REFIT EQUATION WITHOUT THE RACE VARIABLE FOR THE IDMS-TRACEABLE CREATININE METHODS.https://jasn.asnjournals.org/content/early/ N.6902530539 Performed By: #### R ENAL ####[address] [address] Glucose [Mass/Vol] 89 mg/dL Normal 74 - 99 [facility] Comment on above: Performed By: #### R ENAL ####[address] [address] HCO3 (Bld) [Moles/Vol] 29 mmol/L Normal 21 - 32 [facility] Comment on above: Performed By: #### R ENAL ####[address] [address] Phosphate [Mass/Vol] 3.2 mg/dL Normal 2.5 - 4.9 [facility] Comment on above: Result Comment: The performance characteristics of phosphorus testing in heparinized plasma have been validated by the individual laboratory site where testing is performed. Testing on heparinized plasma is not approved by the FDA; however, such approval is not necessary. Performed By: #### R ENAL ####[address] [address] Potassium [Moles/Vol] 3.1 mmol/L Low 3.5 - 5.3 [facility] Comment on above: Performed By: #### R ENAL ####[address] [address] Sodium [Moles/Vol] 138 mmol/L Normal 136 - 145 [facility] Comment on above: Performed By: #### R ENAL ####[address] [address] Urea nitrogen [Mass/Vol] 13 mg/dL Normal 6 - 23 [facility] Comment on above: Performed By: #### R ENAL ####[address] [id number] VANCOMYCIN,TROUGHon 01-31-20 VANCOMYCIN,TROUGH 17.7 ug/mL Normal 5.0 - 20.0 [facility] Comment on above: Result Comment: Vanc omycin levels should be interpreted in conjunction with the dose, disease being treated, vancomycin JASON, time of draw (trough concentrations should be obtained just before the next dose at steady-state), and other clinical information. Trough concentrations of 15-20 ug/mL are desired for severe infections. Ref.: Am J Health-Syst Pharm 66: 83-98, 2009. Performed By: #### V ANCT ####[address] [address] CBCon 01-29-2022 Erythrocyte distribution width (RBC) [Ratio] 12.9 % Normal 11.5 - 14.5 [facility] Comment on above: Performed By: #### C BC ####[address] [address] Hematocrit (Bld) [Volume fraction] 29.3 % Low 36.0 - 46.0 [facility] Comment on above: Performed By: #### C BC ####[address] [address] Hemoglobin (Bld) [Mass/Vol] 9.1 g/dL Low 12.0 - 16.0 [facility] Comment on above: Performed By: #### C BC ####[address] [address] MCHC (RBC) [Mass/Vol] 31.1 g/dL Low 32.0 - 36.0 [facility] Comment on above: Performed By: #### C BC ####[address] [address] MCV (RBC) [Entitic vol] 100 fL Normal 80 - 100 [facility] Comment on above: Performed By: #### C BC ####[address] [address] NUCLEATED RBC 0.0 /100 WBC Normal 0.0 - 0.0 [facility] Comment on above: Performed By: #### C BC ####[address] [address] Platelets (Bld) [#/Vol] 137 10*3/uL Low 150 - 450 [facility] Comment on above: Performed By: #### C BC ####[address] [address] RBC 2.92 x10E12/L Low 4.00 - 5.20 [facility] Comment on above: Performed By: #### C BC ####[address] [address] WBC (Bld) [#/Vol] 8.1 10*3/uL Normal 4.4 - 11.3 [facility] Comment on above: Performed By: #### C BC ####[address] [address] Daily Progress Note - Critic al Careon 01-29-2022 Daily Progress Note - Critical Care Normal [facility] Daily Progress Note-Nephrolo gyon 01-29-2022 Daily Progress Note-Nephrology Normal [facility] GLUCOSE-POCTon 01-29-2022 Glucose [Mass/Vol] 133 mg/dL High 74 - 99 [facility] Comment on above: Performed By: #### G MARLEN ####[address] [address] Glucose [Mass/Vol] 148 mg/dL High 74 - 99 [facility] Comment on above: Performed By: #### G MARLEN ####[address] [address] Glucose [Mass/Vol] 147 mg/dL High 74 - 99 [facility] Comment on above: Performed By: #### G MARLEN ####[address] [address] MAGNESIUMon 01-29-2022 Magnesium [Mass/Vol] 2.00 mg/dL Normal 1.60 - 2.40 [facility] Comment on above: Performed By: #### M G ####[address] [address] Nutrition Therapy-Assessment on 01-29-2022 Nutrition Therapy-Assessment Normal [facility] RENAL FUNCTION PANELon 01-29 Albumin [Mass/Vol] 3.2 g/dL Low 3.4 - 5.0 [facility] Comment on above: Performed By: #### R ENAL ####[address] [address] Anion gap [Moles/Vol] 14 mmol/L Normal 10 - 20 [facility] Comment on above: Performed By: #### R ENAL ####[address] [address] Calcium [Mass/Vol] 8.6 mg/dL Normal 8.6 - 10.3 [facility] Comment on above: Performed By: #### R ENAL ####[address] [address] Chloride [Moles/Vol] 99 mmol/L Normal 98 - 107 [facility] Comment on above: Performed By: #### R ENAL ####[id number] [place] [address] Creatinine [Mass/Vol] 3.98 mg/dL High 0.50 - 1.05 [facility] Comment on above: Performed By: #### R ENAL ####[address] [address] GFR/1.73 sq M.predicted among non-blacks MDRD (S/P/Bld) [Vol rate/Area] 13 mL/min/{1.73_m2} Abnormal >90 [facility] Comment on above: Result Comment: CALC ULATIONS OF ESTIMATED GFR ARE PERFORMED USING THE 2020 CKD-EPI STUDY REFIT EQUATION WITHOUT THE RACE VARIABLE FOR THE IDMS-TRACEABLE CREATININE METHODS.https://jasn.asnjournals.org/content/early/ N.5531191940 Performed By: #### R ENAL ####[address] [address] Glucose [Mass/Vol] 140 mg/dL High 74 - 99 [facility] Comment on above: Performed By: #### R ENAL ####[address] [address] HCO3 (Bld) [Moles/Vol] 27 mmol/L Normal 21 - 32 [facility] Comment on above: Performed By: #### R ENAL ####[address] [address] Phosphate [Mass/Vol] 4.4 mg/dL Normal 2.5 - 4.9 [facility] Comment on above: Result Comment: The performance characteristics of phosphorus testing in heparinized plasma have been validated by the individual laboratory site where testing is performed. Testing on heparinized plasma is not approved by the FDA; however, such approval is not necessary. Performed By: #### R ENAL ####[address] [address] Potassium [Moles/Vol] 3.5 mmol/L Normal 3.5 - 5.3 [facility] Comment on above: Performed By: #### R ENAL ####[address] [address] Sodium [Moles/Vol] 136 mmol/L Normal 136 - 145 [facility] Comment on above: Performed By: #### R ENAL ####[address] [address] Urea nitrogen [Mass/Vol] 28 mg/dL High 6 - 23 [facility] Comment on above: Performed By: #### R ENAL ####[address] [address] Swallow Evaluation v2-FEES, SLPon 01-29-2022 Swallow Evaluation v2-FEES, ITALIAN TUTOR Normal [facility] ABDOMEN AP VIEWon 01-28-2022 ABDOMEN AP VIEW Normal [facility] Admission Risk Screen - Adul ton 01-28-2022 Admission Risk Screen - Adult Normal [facility] BLOOD CULTURE, BACTERIALon 1 BLOOD CULTURE, BACTERIAL Normal [facility] Comment on above: Performed By: #### B LDC ####[id number] [place] [address] CBCon 01-28-2022 Erythrocyte distribution width (RBC) [Ratio] 13.0 % Normal 11.5 - 14.5 [facility] Comment on above: Performed By: #### C BC ####[address] [address] Hematocrit (Bld) [Volume fraction] 29.8 % Low 36.0 - 46.0 [facility] Comment on above: Performed By: #### C BC ####[address] [address] Hemoglobin (Bld) [Mass/Vol] 9.5 g/dL Low 12.0 - 16.0 [facility] Comment on above: Performed By: #### C BC ####[address] [address] MCHC (RBC) [Mass/Vol] 31.9 g/dL Low 32.0 - 36.0 [facility] Comment on above: Performed By: #### C BC ####[address] [address] MCV (RBC) [Entitic vol] 98 fL Normal 80 - 100 [facility] Comment on above: Performed By: #### C BC ####[facility] [place] [address] NUCLEATED RBC 0.0 /100 WBC Normal 0.0 - 0.0 [facility] Comment on above: Performed By: #### C BC ####[facility] [place] [address] Platelets (Bld) [#/Vol] 128 10*3/uL Low 150 - 450 [facility] Comment on above: Performed By: #### C BC ####[address] [address] RBC 3.04 x10E12/L Low 4.00 - 5.20 [facility] Comment on above: Performed By: #### C BC ####[address] [address] WBC (Bld) [#/Vol] 11.0 10*3/uL Normal 4.4 - 11.3 [facility] Comment on above: Performed By: #### C BC ####[address] [address] CHEST 1 VIEWon 01-28-2022 CHEST 1 VIEW Normal [facility] Consult-Nephrologyon 022 Consult-Nephrology Normal [facility] Daily Progress Note - Critic al Careon 01-28-2022 Daily Progress Note - Critical Care Normal [facility] Discharge Planning [id number] 1 Discharge Planning Note2 Normal [facility] EMR ADDONon 01-28-2022 ADDON CONFIRMATION REQUEST REC'D Normal [facility] Comment on above: Performed By: #### E MRAD ####[address] [address] GLUCOSE-POCTon 01-28-2022 Glucose [Mass/Vol] 124 mg/dL High 74 - 99 [facility] Comment on above: Performed By: #### G MARLEN ####[address] [address] Glucose [Mass/Vol] 137 mg/dL High 74 - 99 [facility] Comment on above: Performed By: #### G MARLEN ####[facility] [place] [address] Glucose [Mass/Vol] 134 mg/dL High 74 - 99 [facility] Comment on above: Performed By: #### G MARLEN ####[facility] [place] [address] Glucose [Mass/Vol] 113 mg/dL High 74 - 99 [facility] Comment on above: Performed By: #### G MARLEN ####[facility] [place] [address] HEPATITIS PANEL,ACUTE (HCFA) on 01-28-2022 HEPATITIS B CORE AB,IGM Non-Reactive Normal NONREACTIVE [facility] Comment on above: Result Comment: Resu lts from patients taking biotin supplements or receiving high-dose biotin therapy should be interpreted with caution due to possible interference with this test. Providers may contact their local laboratory for further information. Performed By: #### H EPA2 ####[id number] [id number] HEPATITIS C AB Non-Reactive Normal NONREACTIVE [facility] Comment on above: Result Comment: Resu lts from patients taking biotin supplements or receiving high-dose biotin therapy should be interpreted with caution due to possible interference with this test. Providers may contact their local laboratory for further information. Performed By: #### H EPA2 ####[id number] [place] [address] HEPATITIS A AB-IGM Non-Reactive Normal NONREACTIVE [facility] Comment on above: Result Comment: Biot in interference may cause falsely decreased results. Patients taking a Biotin dose of up to 5 mg/day should refrain from taking Biotin for 24 hours before sample collection. Providers may contact their local laboratory for further information. Performed By: #### H EPA2 ####[id number] [place] [address] HEP.B SURFACE AG Non-Reactive Normal NONREACTIVE [facility] Comment on above: Result Comment: Biot in interference may cause falsely decreased results. Patients taking a Biotin dose of up to 5 mg/day should refrain from taking Biotin for 24 hours before sample collection. Providers may contact their local laboratory for further information. Performed By: #### H EPA2 ####[id number] [place] [address] Lab Specimen Source Normal [facility] Comment on above: Performed By: #### H EPA2 ####[id number] [place] [address] KEPPRAon 01-28-2022 KEPPRA 26 ug/mL Normal 10 - 40 [facility] Comment on above: Result Comment: Briv aracetam may falsely increase the amount of levetiracetam measured by this method. Serum levels should be confirmed by a valid chromatographic method for patients with these drugs co-present in circulation. Performed By: #### K EPPR ####[id number], [place] LIPASEon 01-28-2022 Lipase [Catalytic activity/Vol] 7 U/L Low 9 - 82 [facility] Comment on above: Result Comment: Jacqueline puncture immediately after or during the administration of Metamizole may lead to falsely low results. Testing should be performed immediately prior to Metamizole dosing. Performed By: #### L IPAS ####[place] [id number] [place] [address] MAGNESIUMon 01-28-2022 Magnesium [Mass/Vol] 2.00 mg/dL Normal 1.60 - 2.40 [facility] Comment on above: Performed By: #### M G ####[address] [address] Order Reconciliationon 01-28 Order Reconciliation Normal [facility] PROCALCITONINon 01-28-2022 PROCALCITONIN 1.72 ng/mL Abnormal <=0.07 [facility] Comment on above: Result Comment: Proc alcitonin (PCT) results measured serially canaid in decision-making for antibiotic discontinuation inpatients with suspected or confirmed sepsis in conjunctionwith additional clinical information. Antibioticdiscontinuation may be considered with a change in PCT of>80% from the peak result or when PCT falls below 0.50 ng/mL..Procalcitonin results should not be used in isolation butshould be interpreted in conjunction with additional clinicaland laboratory findings. Procalcitonin results should not beused to guide the initiation of antibiotic therapy..Falsely low PCT values in the presence of bacterial infectionmay occur in early infection, with atypical pathogens,localized infections, and subacute infectious endocarditis..Falsely elevated results outside of severe bacterialinfection/sepsis may be seen in patients with renal failureor insufficiency, severe trauma or simon, recent majorabdominal/cardiac surgery, acute multi-organ failure, rarelyin patients with medullary thyroid carcinoma and rareneuroendocrine tumors, and non-specific interfering antibodies(heterophile antibodies, rheumatoid factor, human anti-mouseantibodies (HAMA), etc)..Performance of the PCT test in pediatric patients (<18yo), women, immunocompromised patients, and patients onimmunomodulatory medications has not been evaluated. Performed By: #### P CALC ####[id number] [place] [address] PT Evaluation v2-screenon PT Evaluation v2-screen Normal [facility] Patient Profile - Adult v2on 01-28-2022 Patient Profile - Adult v2 Normal [facility] RENAL FUNCTION PANELon 01-28 Albumin [Mass/Vol] 3.7 g/dL Normal 3.4 - 5.0 [facility] Comment on above: Performed By: #### R ENAL ####[address] [address] Anion gap [Moles/Vol] 14 mmol/L Normal [facility] Comment on above: Performed By: #### R ENAL ####[address] [address] Calcium [Mass/Vol] 9.0 mg/dL Normal 8.6 - 10.3 [facility] Comment on above: Performed By: #### R ENAL ####[address] [address] Chloride [Moles/Vol] 99 mmol/L Normal 98 - 107 [facility] Comment on above: Performed By: #### R ENAL ####[address] [place] [address] Creatinine [Mass/Vol] 3.71 mg/dL High 0.50 - 1.05 [facility] Comment on above: Performed By: #### R ENAL ####[address] [address] GFR/1.73 sq M.predicted among non-blacks MDRD (S/P/Bld) [Vol rate/Area] 14 mL/min/{1.73_m2} Abnormal >90 [facility] Comment on above: Result Comment: CALC ULATIONS OF ESTIMATED GFR ARE PERFORMED USING THE 2020 CKD-EPI STUDY REFIT EQUATION WITHOUT THE RACE VARIABLE FOR THE IDMS-TRACEABLE CREATININE METHODS.https://jasn.asnjournals.org/content/early/ N.4662464597 Performed By: #### R ENAL ####[address] [address] Glucose [Mass/Vol] 135 mg/dL High 74 - 99 [facility] Comment on above: Performed By: #### R ENAL ####[address] [address] HCO3 (Bld) [Moles/Vol] 26 mmol/L Normal 21 - 32 [facility] Comment on above: Performed By: #### R ENAL ####[address] [address] Phosphate [Mass/Vol] 3.6 mg/dL Normal 2.5 - 4.9 [facility] Comment on above: Result Comment: The performance characteristics of phosphorus testing in heparinized plasma have been validated by the individual laboratory site where testing is performed. Testing on heparinized plasma is not approved by the FDA; however, such approval is not necessary. Performed By: #### R ENAL ####[address] [address] Potassium [Moles/Vol] 4.0 mmol/L Normal 3.5 - 5.3 [facility] Comment on above: Performed By: #### R ENAL ####[address] [place] [address] Sodium [Moles/Vol] 135 mmol/L Low 136 - 145 [facility] Comment on above: Performed By: #### R ENAL ####[address] [address] Urea nitrogen [Mass/Vol] 25 mg/dL High 6 - 23 [facility] Comment on above: Performed By: #### R ENAL ####[address] [address] Albumin [Mass/Vol] 3.2 g/dL Low 3.4 - 5.0 [facility] Comment on above: Performed By: #### R ENAL ####[address] [address] Anion gap [Moles/Vol] 13 mmol/L Normal 10 - 20 [facility] Comment on above: Performed By: #### R ENAL ####[address] [address] Calcium [Mass/Vol] 8.6 mg/dL Normal 8.6 - 10.3 [facility] Comment on above: Performed By: #### R ENAL ####[address] [address] Chloride [Moles/Vol] 100 mmol/L Normal 98 - 107 [facility] Comment on above: Performed By: #### R ENAL ####[address] [address] Creatinine [Mass/Vol] 3.49 mg/dL High 0.50 - 1.05 [facility] Comment on above: Performed By: #### R ENAL ####[address] [address] GFR/1.73 sq M.predicted among non-blacks MDRD (S/P/Bld) [Vol rate/Area] 15 mL/min/{1.73_m2} Abnormal >90 [facility] Comment on above: Result Comment: CALC ULATIONS OF ESTIMATED GFR ARE PERFORMED USING THE 2020 CKD-EPI STUDY REFIT EQUATION WITHOUT THE RACE VARIABLE FOR THE IDMS-TRACEABLE CREATININE METHODS.https://jasn.asnjournals.org/content/early/ N.9512137141 Performed By: #### R ENAL ####[address] [place] [address] Glucose [Mass/Vol] 116 mg/dL High 74 - 99 [facility] Comment on above: Performed By: #### R ENAL ####[address] [address] HCO3 (Bld) [Moles/Vol] 27 mmol/L Normal 21 - 32 [facility] Comment on above: Performed By: #### R ENAL ####[address] [address] Phosphate [Mass/Vol] 2.7 mg/dL Normal 2.5 - 4.9 [facility] Comment on above: Result Comment: The performance characteristics of phosphorus testing in heparinized plasma have been validated by the individual laboratory site where testing is performed. Testing on heparinized plasma is not approved by the FDA; however, such approval is not necessary. Performed By: #### R ENAL ####[address] [address] Potassium [Moles/Vol] 3.5 mmol/L Normal 3.5 - 5.3 [facility] Comment on above: Performed By: #### R ENAL ####[address] [address] Sodium [Moles/Vol] 136 mmol/L Normal 136 - 145 [facility] Comment on above: Performed By: #### R ENAL ####[address] [address] Urea nitrogen [Mass/Vol] 23 mg/dL Normal 6 - 23 [facility] Comment on above: Performed By: #### R ENAL ####[address] [address] Rehab Note-attemptedon 01-28 Rehab Note-attempted Normal [facility] UA MICROSCOPICon 01-28-2022 HYALINE CAST 1+ /LPF Abnormal [facility] Comment on above: Performed By: #### U AMIC ####[address] [address] RBC 0-5 Normal 0-5 [facility] Comment on above: Performed By: #### U AMIC ####[address] [address] SQUAMOUS EPITH. CELLS 5 /HPF Normal [facility] Comment on above: Performed By: #### U AMIC ####[address] [address] WBC 5-20 Abnormal 0-5 [facility] Comment on above: Performed By: #### U AMIC ####[address] [address] URINALYSIS WITH CULTURE IF I NDICATEDon 01-28-2022 Appearance (U) HAZY Normal CLEAR [facility] Comment on above: Performed By: #### U ARFX ####[address] [address] Bilirubin Ql (U) Negative Normal NEGATIVE [facility] Comment on above: Performed By: #### U ARFX ####[address] [address] Color (U) YELLOW Normal STRAW,YELLOW [facility] Comment on above: Performed By: #### U ARFX ####[address] [address] Glucose Ql (U) >=500(3+) Abnormal NEGATIVE [facility] Comment on above: Performed By: #### U ARFX ####[address] [address] Hemoglobin Ql (U) Negative Normal NEGATIVE [facility] Comment on above: Performed By: #### U ARFX ####[address] [address] Ketones Ql (U) Negative Normal NEGATIVE [facility] Comment on above: Performed By: #### U ARFX ####[address] [address] Leukocyte esterase Test strip Ql (U) TRACE Abnormal NEGATIVE [facility] Comment on above: Performed By: #### U ARFX ####[address] [address] Nitrite Ql (U) Negative Normal NEGATIVE [facility] Comment on above: Performed By: #### U ARFX ####[address] [address] pH (U) 7.0 [pH] Normal 5.0 - 8.0 [facility] Comment on above: Performed By: #### U ARFX ####[address] [address] Protein Ql (U) >=500(3+) Abnormal NEGATIVE [facility] Comment on above: Performed By: #### U ARFX ####[address] [address] Specific gravity (U) [Rel density] 1.013 Normal 1.005 - 1.035 [facility] Comment on above: Performed By: #### U ARFX ####[address] [address] Urobilinogen (U) [Mass/Vol] mg/dL Normal 0.0 - 1.9 [facility] Comment on above: Performed By: #### U ARFX ####[address] [address] URINE CULTURE,BACTERIALon URINE CULTURE,BACTERIAL Normal [facility] Comment on above: Performed By: #### U RINC ####[id number] [place] [address] VANCOMYCIN,TROUGHon 01-29-20 VANCOMYCIN,TROUGH 14.1 ug/mL Normal 5.0 - 20.0 [facility] Comment on above: Result Comment: Vanc omycin levels should be interpreted in conjunction with the dose, disease being treated, vancomycin JASON, time of draw (trough concentrations should be obtained just before the next dose at steady-state), and other clinical information. Trough concentrations of 15-20 ug/mL are desired for severe infections. Ref.: Am J Health-Syst Pharm 66: 83-98, 2009. Performed By: #### V ANCT ####[facility] [place] [address] BLOOD CULTURE, BACTERIALon 1 BLOOD CULTURE, BACTERIAL Normal [facility] Comment on above: Performed By: #### B LDC ####[id number] [place] [address] BLOOD CULTURE, BACTERIAL Normal [facility] Comment on above: Performed By: #### B LDC ####[id number] [place] [address] BNPon 01-27-2022 Natriuretic peptide B (Bld) [Mass/Vol] 784 pg/mL High 0 - 99 [facility] Comment on above: Result Comment: . <1 00 pg/mL - Heart failure [id number] pg/mL - Intermediate probability of acute heart. failure exacerbation. Correlate with clinical. context and patient history. >=300 pg/mL - Heart Failure likely. Correlate with clinical. context and patient history.BNP testing is performed using different testingmethodology at [facility] than at [facility]. Direct result comparisons shouldonly be made within the same method. Performed By: #### B NP2 ####[address] [address] CBC AND DIFFERENTIALon 01-27 % AUTOMATED IMMATURE GRAN 0.6 % Normal 0.0 - 0.9 [facility] Comment on above: Result Comment: Nichole ture Granulocyte Count (IG) includes promyelocytes, myelocytes and metamyelocytes but does not include bands. Percent differential counts (%) should be interpreted in the context of the absolute cell counts (cells/L). Performed By: #### C BCDF ####[address] [address] Basophils (Bld) [#/Vol] 0.06 10*3/uL Normal 0.00 - 0.10 [facility] Comment on above: Performed By: #### C BCDF ####[address] [address] Basophils/100 WBC (Bld) 0.5 % Normal 0.0 - 2.0 [facility] Comment on above: Performed By: #### C BCDF ####[address] [id number] [place] [address] Eosinophils (Bld) [#/Vol] 0.57 10*3/uL Normal 0.00 - 0.70 [facility] Comment on above: Performed By: #### C BCDF ####[address] [address] Eosinophils/100 WBC (Bld) 4.5 % Normal 0.0 - 6.0 [facility] Comment on above: Performed By: #### C BCDF ####[address] [address] Erythrocyte distribution width (RBC) [Ratio] 13.1 % Normal 11.5 - 14.5 [facility] Comment on above: Performed By: #### C BCDF ####[address] [address] Hematocrit (Bld) [Volume fraction] 33.5 % Low 36.0 - 46.0 [facility] Comment on above: Performed By: #### C BCDF ####[address] [address] Hemoglobin (Bld) [Mass/Vol] 10.8 g/dL Low 12.0 - 16.0 [facility] Comment on above: Performed By: #### C BCDF ####[address] [address] Lymphocytes (Bld) [#/Vol] 0.83 10*3/uL Low 1.20 - 4.80 [facility] Comment on above: Performed By: #### C BCDF ####[address] [address] Lymphocytes/100 WBC (Bld) 6.5 % Normal 13.0 - 44.0 [facility] Comment on above: Performed By: #### C BCDF ####[address] [address] MCHC (RBC) [Mass/Vol] 32.2 g/dL Normal 32.0 - 36.0 [facility] Comment on above: Performed By: #### C BCDF ####[address] [address] MCV (RBC) [Entitic vol] 98 fL Normal 80 - 100 [facility] Comment on above: Performed By: #### C BCDF ####[address] [address] Monocytes (Bld) [#/Vol] 0.72 10*3/uL Normal 0.10 - 1.00 [facility] Comment on above: Performed By: #### C BCDF ####[address] [address] Monocytes/100 WBC (Bld) 5.6 % Normal 2.0 - 10.0 [facility] Comment on above: Performed By: #### C BCDF ####[address] [address] Neutrophils (Bld) [#/Vol] 10.49 10*3/uL High 1.20 - 7.70 [facility] Comment on above: Performed By: #### C BCDF ####[address] [address] Neutrophils/100 WBC (Bld) 82.3 % Normal 40.0 - 80.0 [facility] Comment on above: Performed By: #### C BCDF ####[address] [address] NUCLEATED RBC 0.0 /100 WBC Normal 0.0 - 0.0 [facility] Comment on above: Performed By: #### C BCDF ####[address] [address] Platelets (Bld) [#/Vol] 142 10*3/uL Low 150 - 450 [facility] Comment on above: Performed By: #### C BCDF ####[address] [address] RBC 3.41 x10E12/L Low 4.00 - 5.20 [facility] Comment on above: Performed By: #### C BCDF ####[facility] [place] [address] WBC (Bld) [#/Vol] 12.8 10*3/uL High 4.4 - 11.3 [facility] Comment on above: Performed By: #### C BCDF ####[facility] [place] [address] COMPREHENSIVE PANELon 2021 Albumin [Mass/Vol] 3.6 g/dL Normal 3.4 - 5.0 [facility] Comment on above: Performed By: #### C MP ####[id number] [place] [address] ALP [Catalytic activity/Vol] 96 U/L Normal 33 - 110 [facility] Comment on above: Performed By: #### C MP ####[address] [address] ALT [Catalytic activity/Vol] 12 U/L Normal 7 - 45 [facility] Comment on above: Result Comment: Patty ents treated with Sulfasalazine may generate falsely decreased results for ALT. Performed By: #### C MP ####[address] [address] Anion gap [Moles/Vol] 13 mmol/L Normal 10 - 20 [facility] Comment on above: Performed By: #### C MP ####[address] [address] AST [Catalytic activity/Vol] 14 U/L Normal 9 - 39 [facility] Comment on above: Performed By: #### C MP ####[address] [place] [address] Bilirubin [Mass/Vol] 0.5 mg/dL Normal 0.0 - 1.2 [facility] Comment on above: Performed By: #### C MP ####[address] [address] Calcium [Mass/Vol] 8.6 mg/dL Normal 8.6 - 10.3 [facility] Comment on above: Performed By: #### C MP ####[address] [place] [address] Chloride [Moles/Vol] 98 mmol/L Normal 98 - 107 [facility] Comment on above: Performed By: #### C MP ####[address] [place] [address] Creatinine [Mass/Vol] 3.14 mg/dL High 0.50 - 1.05 [facility] Comment on above: Performed By: #### C MP ####[address] [address] GFR/1.73 sq M.predicted among non-blacks MDRD (S/P/Bld) [Vol rate/Area] 17 mL/min/{1.73_m2} Abnormal >90 [facility] Comment on above: Result Comment: CALC ULATIONS OF ESTIMATED GFR ARE PERFORMED USING THE 2020 CKD-EPI STUDY REFIT EQUATION WITHOUT THE RACE VARIABLE FOR THE IDMS-TRACEABLE CREATININE METHODS.https://jasn.asnjournals.org/content/early// N.[id number] Performed By: #### C MP ####[address] [address] Glucose [Mass/Vol] 149 mg/dL High 74 - 99 [facility] Comment on above: Performed By: #### C MP ####[address] [address] HCO3 (Bld) [Moles/Vol] 28 mmol/L Normal 21 - 32 [facility] Comment on above: Performed By: #### C MP ####[address] [address] Potassium [Moles/Vol] 4.1 mmol/L Normal 3.5 - 5.3 [facility] Comment on above: Performed By: #### C MP ####[address] [place] [address] Protein [Mass/Vol] 6.1 g/dL Low 6.4 - 8.2 [facility] Comment on above: Performed By: #### C MP ####[place] [address] Sodium [Moles/Vol] 135 mmol/L Low 136 - 145 [facility] Comment on above: Performed By: #### C MP ####[place] [id number] Urea nitrogen [Mass/Vol] 20 mg/dL Normal 6 - 23 [facility] Comment on above: Performed By: #### C MP ####[place] [id number] CORONAVIRUS 2019 BY PCRon SARS-CoV-2 (COVID-19) RNA YASHIRA+probe Ql (Unsp spec) Not detected Normal Not Detected [facility] Comment on above: Result Comment: .Thi s test has received FDA Emergency Use Authorization (EUA) and has beenverified by [facility]. This test is onlyauthorized for the duration of time that circumstances exist to justify theauthorization of the emergency use of in vitro diagnostic tests for thedetection of SARS-CoV-2 virus and/or diagnosis of COVID-19 infection undersection 564(b)(1) of the Act, 21 U.S.C. 360bbb-3(b)(1), unless theauthorization is terminated or revoked sooner.[facility] is certified under CLIA-88 asqualified to perform high complexity testing. [facility] at [address] [place] [address].SARS-CoV-2/Flu/RSV Multiplex Test:Fact sheet for providers: https://www.fda.gov/media/194657/downloadFact sheet for patients: https://www.fda.gov/media/073260/download Performed By: #### C OV19 ####[place] [id number] Lab Specimen Source Nasal, Nasopharyngeal Normal [facility] Comment on above: Performed By: #### C OV19 ####[place] [id number] Clinical Intervention - Phawhit gay 01-27-2022 Clinical Intervention - Pharmacy Normal [facility] Covid 19 Resultson SARS-CoV-2 (COVID-19) RNA YASHIRA+probe Ql (Unsp spec) Normal [facility] Electrocardiogram 12 Leadon 01-27-2022 Electrocardiogram 12 Lead Ventricular Rate 63 Atrial Rate 63 P-R Interval 190 QRS Duration 144 Q-T Interval 490 QTC Calculation(Bazett) 501 P Belknap 72 R Belknap 50 T [place]kn[place] 78 QRS Count 10 Q Onset 219 P Onset 124 P Offset 188 T Offset 464 QTC Fredericia 498 Diagnosis Class Abnormal Diagnosis Normal sinus rhythm Right bundle branch block Abnormal ECG When compared with ECG of 27-JAN-2022 17:13, T wave inversion no longer evident in Anterior leads Confirmed by Rossana Fabian ([id number]) on 02/01/2022 4:14:24 PM Normal [facility] Electrocardiogram 12 Lead Ventricular Rate 82 Atrial Rate 82 P-R Interval 174 QRS Duration 154 Q-T Interval 434 QTC Calculation(Bazett) 507 P Belknap 89 R Belknap 71 T [place] 77 QRS Count 13 Q Onset 219 P Onset 132 P Offset 189 T Offset 436 QTC Fredericia 481 Diagnosis Class Abnormal Diagnosis Normal sinus rhythm Right bundle branch block Abnormal ECG When compared with ECG of 10-DEC-2021 16:02, No significant change was found Confirmed by Rossana Fabian ([id number]) on 01/31/2022 5:27:26 PM Normal [facility] LACTATEon 01-27-2022 Lactate [Moles/Vol] 0.9 mmol/L Normal 0.4 - 2.0 [facility] Comment on above: Result Comment: Jacqueline puncture immediately after or during the administration of Metamizole may lead to falsely low results. Testing should be performed immediately prior to Metamizole dosing. Performed By: #### L ACT ####[facility] [place] [address] PT/INRon 01-27-2022 PT Coag (PPP) [Time] 12.9 s Normal 9.8 - 13.4 [facility] Comment on above: Performed By: #### P TINR ####[facility] [place] [address] PT, INR 1.1 Normal 0.9 - 1.1 [facility] Comment on above: Performed By: #### P [facility] ####[facility] [facility] [place] [address] Provider Note - ED v3on 01-09 Provider Note - ED v3 Normal [facility] Risk Screen - Adult Emergenc yon 01-27-2022 Risk Screen - Adult Emergency Normal [facility] TROPONIN I, HIGH SENSITIVITY on 01-27-2022 TROPONIN I, HIGH SENSITIVITY 15 ng/L High 0 - 13 [facility] Comment on above: Result Comment: .Les s than 99th percentile of normal range cutoff-Female and children under 18 years old <14 ng/L; Male <21 ng/L: NegativeRepeat testing should be performed if clinically indicated..Female and children under 18 years old 14-50 ng/L; Male 21-50 ng/L:Consistent with possible cardiac damage and possible increased clinicalrisk. Serial measurements may help to assess extent of myocardial damage..>50 ng/L: Consistent with cardiac damage, increased clinical risk andmyocardial infarction. Serial measurements may help assess extent ofmyocardial damage..NOTE: Children less than 1 year old may have higher baseline troponinlevels and results should be interpreted in conjunction with the overallclinical context..NOTE: Troponin I testing is performed using a differenttesting methodology at [facility] than at [facility]. Direct result comparisons should onlybe made within the same method. Performed By: #### T [facility] ####[facility] [facility] [place] [address] TROPONIN I, HIGH SENSITIVITY 14 ng/L High 0 - 13 [facility] Comment on above: Result Comment: .Les s than 99th percentile of normal range cutoff-Female and children under 18 years old <14 ng/L; Male <21 ng/L: NegativeRepeat testing should be performed if clinically indicated..Female and children under 18 years old 14-50 ng/L; Male 21-50 ng/L:Consistent with possible cardiac damage and possible increased clinicalrisk. Serial measurements may help to assess extent of myocardial damage..>50 ng/L: Consistent with cardiac damage, increased clinical risk andmyocardial infarction. Serial measurements may help assess extent ofmyocardial damage..NOTE: Children less than 1 year old may have higher baseline troponinlevels and results should be interpreted in conjunction with the overallclinical context..NOTE: Troponin I testing is performed using a differenttesting methodology at [facility] than at [facility]. Direct result comparisons should onlybe made within the same method. Performed By: #### T RP ####[address] [address] Triage - EDon 01-27-2022 Triage - ED Normal [facility] VENOUS FULL PANELon 01-28-20 Anion gap [Moles/Vol] 7 mmol/L Low 10 - 25 [facility] Comment on above: Performed By: #### V FPA4 ####[address] [address] BASE EXCESS-BLOOD 3.4 mmol/L High -2.0 - 3.0 [facility] Comment on above: Performed By: #### V FPA4 ####[address] [address] BICARB, CALCULATED 29.5 mmol/L High 22.0 - 26.0 [facility] Comment on above: Performed By: #### V FPA4 ####[address] [address] CALCIUM,IONIZED 1.11 mmol/L Normal 1.10 - 1.33 [facility] Comment on above: Performed By: #### V FPA4 ####[address] [address] Chloride [Moles/Vol] 101 mmol/L Normal 98 - 107 [facility] Comment on above: Performed By: #### V FPA4 ####[address] [address] Glucose [Mass/Vol] 155 mg/dL High 74 - 99 [facility] Comment on above: Performed By: #### V FPA4 ####[address] [address] Hematocrit (Bld) [Volume fraction] 33.0 % Low 36.0 - 46.0 [facility] Comment on above: Performed By: #### V FPA4 ####[address] [address] Hemoglobin (Bld) [Mass/Vol] 10.9 g/dL Low 12.0 - 16.0 [facility] Comment on above: Performed By: #### V FPA4 ####[address] [address] Lactate [Moles/Vol] 1.0 mmol/L Normal 0.4 - 2.0 [facility] Comment on above: Performed By: #### V FPA4 ####[address] [address] OXY HGB 79.2 % High 45.0 - 75.0 [facility] Comment on above: Performed By: #### V FPA4 ####[address] [address] Oxygen (Bld) [Partial pressure] 46 mm[Hg] High 35 - 45 [facility] Comment on above: Performed By: #### V FPA4 ####[address] [address] PATIENT TEMPERATURE 37.0 degrees C Normal [facility] Comment on above: Result Comment: NOTE : PATIENT RESULTS ARE NOT CORRECTED FOR TEMPERATURE. Performed By: #### V FPA4 ####[address] [address] PCO2 51 mmHg Normal 41 - 51 [facility] Comment on above: Performed By: #### V FPA4 ####[address] [address] pH (Bld) 7.37 [pH] Normal 7.33 - 7.43 [facility] Comment on above: Performed By: #### V FPA4 ####[address] [address] Potassium [Moles/Vol] 4.5 mmol/L Normal 3.5 - 5.3 [facility] Comment on above: Performed By: #### V FPA4 ####[address] [address] SO2 82 % High 45 - 75 [facility] Comment on above: Performed By: #### V FPA4 ####[facility] [facility] [place] [address] Sodium [Moles/Vol] 133 mmol/L Low 136 - 145 [facility] Comment on above: Performed By: #### V FPA4 ####[facility] [place] [address] BASIC METABOLIC PANELon 10-0 -2021 Anion gap [Moles/Vol] 13 mmol/L Normal 10 - 20 [facility] Comment on above: Performed By: #### B MP #### [facility] [address] [place] [address] Calcium [Mass/Vol] 8.5 mg/dL Low 8.6 - 10.3 [facility] Comment on above: Performed By: #### B MP #### [address] [address] Chloride [Moles/Vol] 97 mmol/L Low 98 - 107 [facility] Comment on above: Performed By: #### B MP #### [address] [address] Creatinine [Mass/Vol] 2.65 mg/dL High 0.50 - 1.05 [facility] Comment on above: Performed By: #### B MP #### [address] [address] GFR/1.73 sq M.predicted among non-blacks MDRD (S/P/Bld) [Vol rate/Area] 21 mL/min/{1.73_m2} Abnormal >90 [facility] Comment on above: Result Comment: CALC ULATIONS OF ESTIMATED GFR ARE PERFORMED USING THE 2020 CKD-EPI STUDY REFIT EQUATION WITHOUT THE RACE VARIABLE FOR THE IDMS-TRACEABLE CREATININE METHODS. https://jasn.asnjournals.org/content/early//ASN.529679 7990 Performed By: #### B MP #### [address] [address] Glucose [Mass/Vol] 167 mg/dL High 74 - 99 [facility] Comment on above: Performed By: #### B MP #### [facility] [address] [place] [address] HCO3 (Bld) [Moles/Vol] 28 mmol/L Normal 21 - 32 [facility] Comment on above: Performed By: #### B MP #### [address] [address] Potassium [Moles/Vol] 4.3 mmol/L Normal 3.5 - 5.3 [facility] Comment on above: Performed By: #### B MP #### [address] [address] Sodium [Moles/Vol] 134 mmol/L Low 136 - 145 [facility] Comment on above: Performed By: #### B MP #### [address] [address] Urea nitrogen [Mass/Vol] 15 mg/dL Normal 6 - 23 [facility] Comment on above: Performed By: #### B MP #### [address] [address] CBC AND DIFFERENTIALon 01-13 % AUTOMATED IMMATURE GRAN 0.7 % Normal 0.0 - 0.9 [facility] Comment on above: Result Comment: Nichole ture Granulocyte Count (IG) includes promyelocytes, myelocytes and metamyelocytes but does not include bands. Percent differential counts (%) should be interpreted in the context of the absolute cell counts (cells/L). Performed By: #### C BCDF #### [address] [address] Basophils (Bld) [#/Vol] 0.05 10*3/uL Normal 0.00 - 0.10 [facility] Comment on above: Performed By: #### C BCDF #### [address] [address] Basophils/100 WBC (Bld) 0.8 % Normal 0.0 - 2.0 [facility] Comment on above: Performed By: #### C BCDF #### [address] [address] Eosinophils (Bld) [#/Vol] 0.70 10*3/uL Normal 0.00 - 0.70 [facility] Comment on above: Performed By: #### C BCDF #### [address] [address] Eosinophils/100 WBC (Bld) 11.5 % Normal 0.0 - 6.0 [facility] Comment on above: Performed By: #### C BCDF #### [address] [address] Erythrocyte distribution width (RBC) [Ratio] 13.3 % Normal 11.5 - 14.5 [facility] Comment on above: Performed By: #### C BCDF #### [address] [address] Hematocrit (Bld) [Volume fraction] 34.1 % Low 36.0 - 46.0 [facility] Comment on above: Performed By: #### C BCDF #### [address] [address] Hemoglobin (Bld) [Mass/Vol] 11.1 g/dL Low 12.0 - 16.0 [facility] Comment on above: Performed By: #### C BCDF #### [address] [address] Lymphocytes (Bld) [#/Vol] 0.61 10*3/uL Low 1.20 - 4.80 [facility] Comment on above: Performed By: #### C BCDF #### [address] [address] Lymphocytes/100 WBC (Bld) 10.0 % Normal 13.0 - 44.0 [facility] Comment on above: Performed By: #### C BCDF #### [address] [address] MCHC (RBC) [Mass/Vol] 32.6 g/dL Normal 32.0 - 36.0 [facility] Comment on above: Performed By: #### C BCDF #### [address] [address] MCV (RBC) [Entitic vol] 101 fL High 80 - 100 [facility] Comment on above: Performed By: #### C BCDF #### [facility] [address] [place] [address] Monocytes (Bld) [#/Vol] 0.50 10*3/uL Normal 0.10 - 1.00 [facility] Comment on above: Performed By: #### C BCDF #### [facility] [address] [place] [address] Monocytes/100 WBC (Bld) 8.2 % Normal 2.0 - 10.0 [facility] Comment on above: Performed By: #### C BCDF #### [facility] [address] [facility] [place] [address] Neutrophils (Bld) [#/Vol] 4.20 10*3/uL Normal 1.20 - 7.70 [facility] Comment on above: Performed By: #### C BCDF #### [address] [place] [address] Neutrophils/100 WBC (Bld) 68.8 % Normal 40.0 - 80.0 [facility] Comment on above: Performed By: #### C BCDF #### [facility] [address] [place] [address], [place] [address] NUCLEATED RBC 0.0 /100 WBC Normal 0.0 - 0.0 [facility] Comment on above: Performed By: #### C BCDF #### [address] [place] [address] Platelets (Bld) [#/Vol] 133 10*3/uL Low 150 - 450 [facility] Comment on above: Performed By: #### C BCDF #### [facility] [address] [place], [place] [address] [place] [address] RBC 3.36 x10E12/L Low 4.00 - 5.20 [facility] Comment on above: Performed By: #### C BCDF #### [address] [place] [address] WBC (Bld) [#/Vol] 6.1 10*3/uL Normal 4.4 - 11.3 [facility] Comment on above: Performed By: #### C BCDF #### [address] [place] [address] CBC AND DIFFERENTIALon 12-12 % AUTOMATED IMMATURE GRAN Canceled Normal [facility] Comment on above: Order Comment: TEST CBC AND DIFFERENTIAL WAS CANCELLED, 12/12/2021 10:45 Result Comment: Nichole ture Granulocyte Count (IG) includes promyelocytes, myelocytes and metamyelocytes but does not include bands. Percent differential counts (%) should be interpreted in the context of the absolute cell counts (cells/L). Performed By: #### C BCDF ####[address] [place] [address] % BASOPHIL Canceled Normal [facility] Comment on above: Order Comment: TEST CBC AND DIFFERENTIAL WAS CANCELLED, 12/12/2021 10:45 Performed By: #### C BCDF ####[address] [place] [address] % EOSINOPHIL Canceled Normal [facility] Comment on above: Order Comment: TEST CBC AND DIFFERENTIAL WAS CANCELLED, 12/12/2021 10:45 Performed By: #### C BCDF ####[address] [place] [address] % LYMPHOCYTE Canceled Normal [facility] Comment on above: Order Comment: TEST CBC AND DIFFERENTIAL WAS CANCELLED, 12/12/2021 10:45 Performed By: #### C BCDF ####[address] [place] [address] % MONOCYTE Canceled Normal [facility] Comment on above: Order Comment: TEST CBC AND DIFFERENTIAL WAS CANCELLED, 12/12/2021 10:45 Performed By: #### C BCDF ####[address] [place] [address] % NEUTROPHIL Canceled Normal [facility] Comment on above: Order Comment: TEST CBC AND DIFFERENTIAL WAS CANCELLED, 12/12/2021 10:45 Performed By: #### C BCDF ####[address] [place] [address] BASOPHIL Canceled Normal [facility] Comment on above: Order Comment: TEST CBC AND DIFFERENTIAL WAS CANCELLED, 12/12/2021 10:45 Performed By: #### C BCDF ####[facility] [place] [address] DIFFERENTIAL Canceled Normal [facility] Comment on above: Order Comment: TEST CBC AND DIFFERENTIAL WAS CANCELLED, 12/12/2021 10:45 Performed By: #### C BCDF ####[place] [id number] [place] [address] EOSINOPHIL Canceled [facility] Comment on above: Order Comment: TEST CBC AND DIFFERENTIAL WAS CANCELLED, 12/12/2021 10:45 Performed By: #### C BCDF ####[address] [place] [address] HCT Canceled [facility] Comment on above: Order Comment: TEST CBC AND DIFFERENTIAL WAS CANCELLED, 12/12/2021 10:45 Performed By: #### C BCDF ####[address] [place] [address] HGB Canceled Normal [facility] Comment on above: Order Comment: TEST CBC AND DIFFERENTIAL WAS CANCELLED, 12/12/2021 10:45 Performed By: #### C BCDF ####[address] [place] [address] LYMPHOCYTE Canceled [facility] Comment on above: Order Comment: TEST CBC AND DIFFERENTIAL WAS CANCELLED, 12/12/2021 10:45 Performed By: #### C BCDF ####[address] [place] [address] MCHC Canceled Normal [facility] Comment on above: Order Comment: TEST CBC AND DIFFERENTIAL WAS CANCELLED, 12/12/2021 10:45 Performed By: #### C BCDF ####[place] [id number] [place] [address] MCV Canceled [facility] Comment on above: Order Comment: TEST CBC AND DIFFERENTIAL WAS CANCELLED, 12/12/2021 10:45 Performed By: #### C BCDF ####[place] [id number] [place] [address] MONOCYTE Canceled [facility] Comment on above: Order Comment: TEST CBC AND DIFFERENTIAL WAS CANCELLED, 12/12/2021 10:45 Performed By: #### C BCDF ####[address] [place] [address] NEUTROPHIL Canceled Normal [facility] Comment on above: Order Comment: TEST CBC AND DIFFERENTIAL WAS CANCELLED, 12/12/2021 10:45 Performed By: #### C BCDF ####[address] [place] [address] NUCLEATED RBC Canceled Normal [facility] Comment on above: Order Comment: TEST CBC AND DIFFERENTIAL WAS CANCELLED, 12/12/2021 10:45 Performed By: #### C BCDF ####[address] [place] [address] PLT Canceled Normal [facility] Comment on above: Order Comment: TEST CBC AND DIFFERENTIAL WAS CANCELLED, 12/12/2021 10:45 Performed By: #### C BCDF ####[address] [place] [address] RBC Canceled Normal [facility] Comment on above: Order Comment: TEST CBC AND DIFFERENTIAL WAS CANCELLED, 12/12/2021 10:45 Performed By: #### C BCDF ####[address] [place] [address] RDW-CV Canceled Normal [facility] Comment on above: Order Comment: TEST CBC AND DIFFERENTIAL WAS CANCELLED, 12/12/2021 10:45 Performed By: #### C BCDF ####[address] [place] [address] WBC Canceled Normal [facility] Comment on above: Order Comment: TEST CBC AND DIFFERENTIAL WAS CANCELLED, 12/12/2021 10:45 Performed By: #### C BCDF ####[address] [place] [address] HEPATITIS BE ABon 12-12-2021 HEPATITIS BE AB Negative Normal Negative [facility] Comment on above: Performed By: #### H BEAB ####[facility] [phone] [place], [place] [id number] LEGIONELLA AG, URINEon 12-12 LEGIONELLA AG, URINE Canceled Normal [facility] Comment on above: Order Comment: TEST LEGIONELLA AG, URINE WAS CANCELLED, 12/12/2021 07:28 NO SPECIMENRECEIVED IN LAB. Performed By: #### L EGUR ####[id number] [place] [address] MAGNESIUMon 12-12-2021 MAGNESIUM Canceled Normal [facility] Comment on above: Order Comment: TEST MAGNESIUM WAS CANCELLED, 12/12/2021 10:45 Performed By: #### M G ####[address] [address] MRSA BY PCRon 12-12-2021 MRSA by PCR Canceled [facility] Comment on above: Order Comment: TEST MRSA BY PCR WAS CANCELLED, 12/12/2021 07:36 Pt. discharged/ no samplesent. Result Comment: A ne gative result does not preclude MRSA nasal colonization.Test performance has not been evaluated in patients lessthan two years of age. Performed By: #### M RSA ####[address] [address] RENAL FUNCTION PANELon 12-12 ALBUMIN Canceled [facility] Comment on above: Order Comment: TEST RENAL FUNCTION PANEL WAS CANCELLED, 12/12/2021 10:45 Performed By: #### R ENAL ####[address] [address] ANION GAP Canceled [facility] Comment on above: Order Comment: TEST RENAL FUNCTION PANEL WAS CANCELLED, 12/12/2021 10:45 Performed By: #### R ENAL ####[address] [address] BICARBONATE Canceled [facility] Comment on above: Order Comment: TEST RENAL FUNCTION PANEL WAS CANCELLED, 12/12/2021 10:45 Performed By: #### R ENAL ####[address] [address] CALCIUM Canceled Normal [facility] Comment on above: Order Comment: TEST RENAL FUNCTION PANEL WAS CANCELLED, 12/12/2021 10:45 Performed By: #### R ENAL ####[address] [place] [address] CHLORIDE Canceled Normal [facility] Comment on above: Order Comment: TEST RENAL FUNCTION PANEL WAS CANCELLED, 12/12/2021 10:45 Performed By: #### R ENAL ####[address] [place] [address] CREATININE Canceled Normal [facility] Comment on above: Order Comment: TEST RENAL FUNCTION PANEL WAS CANCELLED, 12/12/2021 10:45 Performed By: #### R ENAL ####[address] [place] [address] eGFR FEMALE Canceled [facility] Comment on above: Order Comment: TEST RENAL FUNCTION PANEL WAS CANCELLED, 12/12/2021 10:45 Result Comment: CALC ULATIONS OF ESTIMATED GFR ARE PERFORMED USING THE 2020 CKD-EPI STUDY REFIT EQUATION WITHOUT THE RACE VARIABLE FOR THE IDMS-TRACEABLE CREATININE METHODS.https://jasn.asnjournals.org/content/early/ N.8983354633 Performed By: #### R ENAL ####[address] [place] [address] eGFR MALE Canceled Normal [facility] Comment on above: Order Comment: TEST RENAL FUNCTION PANEL WAS CANCELLED, 12/12/2021 10:45 Result Comment: CALC ULATIONS OF ESTIMATED GFR ARE PERFORMED USING THE 2020 CKD-EPI STUDY REFIT EQUATION WITHOUT THE RACE VARIABLE FOR THE IDMS-TRACEABLE CREATININE METHODS.https://jasn.asnjournals.org/content/early/ N.8513894764 Performed By: #### R ENAL ####[address] [place] [address] GLUCOSE Canceled Normal [facility] Comment on above: Order Comment: TEST RENAL FUNCTION PANEL WAS CANCELLED, 12/12/2021 10:45 Performed By: #### R ENAL ####[place] [id number] [facility] [place] [address] PHOSPHORUS Canceled Normal [facility] Comment on above: Order Comment: TEST RENAL FUNCTION PANEL WAS CANCELLED, 12/12/2021 10:45 Result Comment: The performance characteristics of phosphorus testing in heparinized plasma have been validated by the individual laboratory site where testing is performed. Testing on heparinized plasma is not approved by the FDA; however, such approval is not necessary. Performed By: #### R ENAL ####[address] [place] [address] POTASSIUM Canceled Normal [facility] Comment on above: Order Comment: TEST RENAL FUNCTION PANEL WAS CANCELLED, 12/12/2021 10:45 Performed By: #### R ENAL ####[address] [place] [address] SODIUM Canceled Normal [facility] Comment on above: Order Comment: TEST RENAL FUNCTION PANEL WAS CANCELLED, 12/12/2021 10:45 Performed By: #### R ENAL ####[address] [place] [address] UREA NITROGEN Canceled Normal [facility] Comment on above: Order Comment: TEST RENAL FUNCTION PANEL WAS CANCELLED, 12/12/2021 10:45 Performed By: #### R ENAL ####[address] [place] [address] S.PNEUMONIAE AG,Uon 12-13-19 22 S.PNEUMONIAE AG,U Canceled Normal [facility] Comment on above: Order Comment: TEST S.PNEUMONIAE AG,U WAS CANCELLED, 12/12/2021 07:28 NO SPECIMEN RECEIVEDIN LAB. Performed By: #### S PNAG ####[id number] [place] [address] Admission Risk Screen - Adul ton 12-11-2021 Admission Risk Screen - Adult Normal [facility] CBC AND DIFFERENTIALon 12-11 % AUTOMATED IMMATURE GRAN 1.5 % High 0.0 - 0.9 [facility] Comment on above: Result Comment: Nichole ture Granulocyte Count (IG) includes promyelocytes, myelocytes and metamyelocytes but does not include bands. Percent differential counts (%) should be interpreted in the context of the absolute cell counts (cells/L). Performed By: #### C BCDF ####[address] [address] Basophils (Bld) [#/Vol] 0.06 10*3/uL Normal 0.00 - 0.10 [facility] Comment on above: Performed By: #### C BCDF ####[address] [address] Basophils/100 WBC (Bld) 0.6 % Normal 0.0 - 2.0 [facility] Comment on above: Performed By: #### C BCDF ####[address] [address] Eosinophils (Bld) [#/Vol] 0.14 10*3/uL Normal 0.00 - 0.70 [facility] Comment on above: Performed By: #### C BCDF ####[address] [address] Eosinophils/100 WBC (Bld) 1.4 % Normal 0.0 - 6.0 [facility] Comment on above: Performed By: #### C BCDF ####[address] [address] Erythrocyte distribution width (RBC) [Ratio] 12.9 % Normal 11.5 - 14.5 [facility] Comment on above: Performed By: #### C BCDF ####[address] [address] Hematocrit (Bld) [Volume fraction] 32.5 % Low 36.0 - 46.0 [facility] Comment on above: Performed By: #### C BCDF ####[address] [address] Hemoglobin (Bld) [Mass/Vol] 10.2 g/dL Low 12.0 - 16.0 [facility] Comment on above: Performed By: #### C BCDF ####[address] [address] Lymphocytes (Bld) [#/Vol] 0.45 10*3/uL Low 1.20 - 4.80 [facility] Comment on above: Performed By: #### C BCDF ####[address] [address] Lymphocytes/100 WBC (Bld) 4.6 % Normal 13.0 - 44.0 [facility] Comment on above: Performed By: #### C BCDF ####[address] [address] MCHC (RBC) [Mass/Vol] 31.4 g/dL Low 32.0 - 36.0 [facility] Comment on above: Performed By: #### C BCDF ####[address] [address] MCV (RBC) [Entitic vol] 98 fL Normal 80 - 100 [facility] Comment on above: Performed By: #### C BCDF ####[address] [address] Monocytes (Bld) [#/Vol] 0.11 10*3/uL Normal 0.10 - 1.00 [facility] Comment on above: Performed By: #### C BCDF ####[address] [address] Monocytes/100 WBC (Bld) 1.1 % Normal 2.0 - 10.0 [facility] Comment on above: Performed By: #### C BCDF ####[address] [address] Neutrophils (Bld) [#/Vol] 8.94 10*3/uL High 1.20 - 7.70 [facility] Comment on above: Performed By: #### C BCDF ####[address] [address] Neutrophils/100 WBC (Bld) 90.8 % Normal 40.0 - 80.0 [facility] Comment on above: Performed By: #### C BCDF ####[address] [address] NUCLEATED RBC 0.0 /100 WBC Normal 0.0 - 0.0 [facility] Comment on above: Performed By: #### C BCDF ####[address] [address] Platelets (Bld) [#/Vol] 127 10*3/uL Low 150 - 450 [facility] Comment on above: Performed By: #### C BCDF ####[address] [address] RBC 3.32 x10E12/L Low 4.00 - 5.20 [facility] Comment on above: Performed By: #### C BCDF ####[address] [address] WBC (Bld) [#/Vol] 9.9 10*3/uL Normal 4.4 - 11.3 [facility] Comment on above: Performed By: #### C BCDF ####[address] [address] CHEST 1 VIEWon 12-11-2021 CHEST 1 VIEW Normal [facility] Daily Progress Note-Nephrolo gyon 12-11-2021 Daily Progress Note-Nephrology Normal [facility] Discharge [id number] Discharge Profile2 Normal [facility] GLUCOSE-[facility] 12-11-2021 Glucose [Mass/Vol] 162 mg/dL High 74 - 99 [facility] Comment on above: Performed By: #### G MARLEN ####[address] [address] Glucose [Mass/Vol] 151 mg/dL High 74 - 99 [facility] Comment on above: Performed By: #### G MARLEN ####[address] [address] Glucose [Mass/Vol] 166 mg/dL High 74 - 99 [facility] Comment on above: Performed By: #### G MARLEN ####[address] [address] Glucose [Mass/Vol] 186 mg/dL High 74 - 99 [facility] Comment on above: Performed By: #### G MARLEN ####[address] [address] HEPATIC FUNCTION PANELon ALP [Catalytic activity/Vol] 97 U/L Normal 33 - 110 [facility] Comment on above: Performed By: #### H EPFP ####[address] [address] ALT [Catalytic activity/Vol] 10 U/L Normal 7 - 45 [facility] Comment on above: Result Comment: Patty ents treated with Sulfasalazine may generate falsely decreased results for ALT. Performed By: #### H EPFP ####[address] [address] AST [Catalytic activity/Vol] 13 U/L Normal 9 - 39 [facility] Comment on above: Performed By: #### H EPFP ####[address] [address] Bilirubin [Mass/Vol] 0.5 mg/dL Normal 0.0 - 1.2 [facility] Comment on above: Performed By: #### H EPFP ####[address] [address] Bilirubin.indirect [Mass/Vol] 0.1 mg/dL Normal 0.0 - 0.3 [facility] Comment on above: Performed By: #### H EPFP ####[address] [address] Protein [Mass/Vol] 7.2 g/dL Normal 6.4 - 8.2 [facility] Comment on above: Performed By: #### H EPFP ####[address] [address] HEPATITIS B SURFACE AGon HEP.B SURFACE AG Non-Reactive Normal NONREACTIVE [facility] Comment on above: Result Comment: Biot in interference may cause falsely decreased results. Patients taking a Biotin dose of up to 5 mg/day should refrain from taking Biotin for 24 hours before sample collection. Providers may contact their local laboratory for further information. Performed By: #### H BSAG ####[id number] [place] [address] Lab Specimen Source Normal [facility] Comment on above: Performed By: #### H BSAG ####[id number] [place] [address] MAGNESIUMon 12-11-2021 Magnesium [Mass/Vol] 1.90 mg/dL Normal 1.60 - 2.40 [facility] Comment on above: Performed By: #### M G ####[facility] [facility] [place] [address] Nutrition Therapy-Noteon Nutrition Therapy-Note Normal [facility] Order Reconciliationon 12-11 Order Reconciliation Normal [facility] PROCALCITONINon 12-11-2021 PROCALCITONIN 0.23 ng/mL Abnormal <=0.07 [facility] Comment on above: Result Comment: Proc alcitonin (PCT) results measured serially canaid in decision-making for antibiotic discontinuation inpatients with suspected or confirmed sepsis in conjunctionwith additional clinical information. Antibioticdiscontinuation may be considered with a change in PCT of>80% from the peak result or when PCT falls below 0.50 ng/mL..Procalcitonin results should not be used in isolation butshould be interpreted in conjunction with additional clinicaland laboratory findings. Procalcitonin results should not beused to guide the initiation of antibiotic therapy..Falsely low PCT values in the presence of bacterial infectionmay occur in early infection, with atypical pathogens,localized infections, and subacute infectious endocarditis..Falsely elevated results outside of severe bacterialinfection/sepsis may be seen in patients with renal failureor insufficiency, severe trauma or simon, recent majorabdominal/cardiac surgery, acute multi-organ failure, rarelyin patients with medullary thyroid carcinoma and rareneuroendocrine tumors, and non-specific interfering antibodies(heterophile antibodies, rheumatoid factor, human anti-mouseantibodies (HAMA), etc)..Performance of the PCT test in pediatric patients (<18yo), women, immunocompromised patients, and patients onimmunomodulatory medications has not been evaluated. Performed By: #### P CALC ####[id number] [place] [id number] PT Evaluation v2-physical th erapyon 12-11-2021 PT Evaluation v2-physical therapy Normal [facility] Patient Profile - Adult v2on 12-11-2021 Patient Profile - Adult v2 Normal [facility] RENAL FUNCTION PANELon 12-11 Albumin [Mass/Vol] 4.0 g/dL Normal 3.4 - 5.0 [facility] Comment on above: Performed By: #### R ENAL ####[address] [address] Performed By: #### H EPFP ####[address] [address] Anion gap [Moles/Vol] 13 mmol/L Normal 10 - 20 [facility] Comment on above: Performed By: #### R ENAL ####[address] [address] Calcium [Mass/Vol] 9.2 mg/dL Normal 8.6 - 10.3 [facility] Comment on above: Performed By: #### R ENAL ####[address] [address] Chloride [Moles/Vol] 97 mmol/L Low 98 - 107 [facility] Comment on above: Performed By: #### R ENAL ####[address] [address] Creatinine [Mass/Vol] 1.91 mg/dL High 0.50 - 1.05 [facility] Comment on above: Performed By: #### R ENAL ####[address] [address] GFR/1.73 sq M.predicted among non-blacks MDRD (S/P/Bld) [Vol rate/Area] 31 mL/min/{1.73_m2} Abnormal >90 [facility] Comment on above: Result Comment: CALC ULATIONS OF ESTIMATED GFR ARE PERFORMED USING THE 2020 CKD-EPI STUDY REFIT EQUATION WITHOUT THE RACE VARIABLE FOR THE IDMS-TRACEABLE CREATININE METHODS.https://jasn.asnjournals.org/content/early// N.2843607513 Performed By: #### R ENAL ####[address] [place] [address] Glucose [Mass/Vol] 215 mg/dL High 74 - 99 [facility] Comment on above: Performed By: #### R ENAL ####[address] [address] HCO3 (Bld) [Moles/Vol] 28 mmol/L Normal 21 - 32 [facility] Comment on above: Performed By: #### R ENAL ####[address] [address] Phosphate [Mass/Vol] 2.8 mg/dL Normal 2.5 - 4.9 [facility] Comment on above: Result Comment: The performance characteristics of phosphorus testing in heparinized plasma have been validated by the individual laboratory site where testing is performed. Testing on heparinized plasma is not approved by the FDA; however, such approval is not necessary. Performed By: #### R ENAL ####[address] [address] Potassium [Moles/Vol] 4.0 mmol/L Normal 3.5 - 5.3 [facility] Comment on above: Performed By: #### R ENAL ####[address] [address] Sodium [Moles/Vol] 134 mmol/L Low 136 - 145 [facility] Comment on above: Performed By: #### R ENAL ####[address] [address] Urea nitrogen [Mass/Vol] 14 mg/dL Normal 6 - 23 [facility] Comment on above: Performed By: #### R ENAL ####[address] [address] VANCOMYCIN,TROUGHon 12-12-19 VANCOMYCIN,TROUGH 14.8 ug/mL Normal 5.0 - 20.0 [facility] Comment on above: Result Comment: Vanc omycin levels should be interpreted in conjunction with the dose, disease being treated, vancomycin JASON, time of draw (trough concentrations should be obtained just before the next dose at steady-state), and other clinical information. Trough concentrations of 15-20 ug/mL are desired for severe infections. Ref.: Am J Health-Syst Pharm 66: 83-98, 2008. Performed By: #### V ANCT ####[address] [address] BNPon 12-10-2021 Natriuretic peptide B (Bld) [Mass/Vol] 903 pg/mL High 0 - 99 [facility] Comment on above: Result Comment: . <1 00 pg/mL - Heart failure -174 pg/mL - Intermediate probability of acute heart. failure exacerbation. Correlate with clinical. context and patient history. >=300 pg/mL - Heart Failure likely. Correlate with clinical. context and patient history.BNP testing is performed using different testingmethodology at [facility] than at [facility]. Direct result comparisons shouldonly be made within the same method. Performed By: #### B NP2 ####[address] [address] CBC AND DIFFERENTIALon 12-10 % AUTOMATED IMMATURE GRAN 0.8 % Normal 0.0 - 0.9 [facility] Comment on above: Result Comment: Nichole ture Granulocyte Count (IG) includes promyelocytes, myelocytes and metamyelocytes but does not include bands. Percent differential counts (%) should be interpreted in the context of the absolute cell counts (cells/L). Performed By: #### C BCDF ####[address] [address] Basophils (Bld) [#/Vol] 0.06 10*3/uL Normal 0.00 - 0.10 [facility] Comment on above: Performed By: #### C BCDF ####[address] [address] Basophils/100 WBC (Bld) 0.8 % Normal 0.0 - 2.0 [facility] Comment on above: Performed By: #### C BCDF ####[address] [address] Eosinophils (Bld) [#/Vol] 0.67 10*3/uL Normal 0.00 - 0.70 [facility] Comment on above: Performed By: #### C BCDF ####[address] [address] Eosinophils/100 WBC (Bld) 9.4 % Normal 0.0 - 6.0 [facility] Comment on above: Performed By: #### C BCDF ####[address] [address] Erythrocyte distribution width (RBC) [Ratio] 13.2 % Normal 11.5 - 14.5 [facility] Comment on above: Performed By: #### C BCDF ####[address] [address] Hematocrit (Bld) [Volume fraction] 29.5 % Low 36.0 - 46.0 [facility] Comment on above: Performed By: #### C BCDF ####[address] [address] Hemoglobin (Bld) [Mass/Vol] 9.5 g/dL Low 12.0 - 16.0 [facility] Comment on above: Performed By: #### C BCDF ####[address] [address] Lymphocytes (Bld) [#/Vol] 0.65 10*3/uL Low 1.20 - 4.80 [facility] Comment on above: Performed By: #### C BCDF ####[address] [address] Lymphocytes/100 WBC (Bld) 9.1 % Normal 13.0 - 44.0 [facility] Comment on above: Performed By: #### C BCDF ####[address] [address] MCHC (RBC) [Mass/Vol] 32.2 g/dL Normal 32.0 - 36.0 [facility] Comment on above: Performed By: #### C BCDF ####[address] [address] MCV (RBC) [Entitic vol] 98 fL Normal 80 - 100 [facility] Comment on above: Performed By: #### C BCDF ####[address] [address] Monocytes (Bld) [#/Vol] 0.46 10*3/uL Normal 0.10 - 1.00 [facility] Comment on above: Performed By: #### C BCDF ####[address] [address] Monocytes/100 WBC (Bld) 6.5 % Normal 2.0 - 10.0 [facility] Comment on above: Performed By: #### C BCDF ####[address] [address] Neutrophils (Bld) [#/Vol] 5.23 10*3/uL Normal 1.20 - 7.70 [facility] Comment on above: Performed By: #### C BCDF ####[address] [address] Neutrophils/100 WBC (Bld) 73.4 % Normal 40.0 - 80.0 [facility] Comment on above: Performed By: #### C BCDF ####[address] [address] NUCLEATED RBC 0.0 /100 WBC Normal 0.0 - 0.0 [facility] Comment on above: Performed By: #### C BCDF ####[address] [address] Platelets (Bld) [#/Vol] 126 10*3/uL Low 150 - 450 [facility] Comment on above: Performed By: #### C BCDF ####[address] [address] RBC 3.02 x10E12/L Low 4.00 - 5.20 [facility] Comment on above: Performed By: #### C BCDF ####[address] [address] WBC (Bld) [#/Vol] 7.1 10*3/uL Normal 4.4 - 11.3 [facility] Comment on above: Performed By: #### C BCDF ####[address] [address] COMPREHENSIVE PANELon 2021 Albumin [Mass/Vol] 3.6 g/dL Normal 3.4 - 5.0 [facility] Comment on above: Performed By: #### C MP ####[address] [address] ALP [Catalytic activity/Vol] 101 U/L Normal 33 - 110 [facility] Comment on above: Performed By: #### C MP ####[address] [address] ALT [Catalytic activity/Vol] 10 U/L Normal 7 - 45 [facility] Comment on above: Result Comment: Patty ents treated with Sulfasalazine may generate falsely decreased results for ALT. Performed By: #### C MP ####[address] [address] Anion gap [Moles/Vol] 10 mmol/L Normal 10 - 20 [facility] Comment on above: Performed By: #### C MP ####[address] [address] AST [Catalytic activity/Vol] 15 U/L Normal 9 - 39 [facility] Comment on above: Performed By: #### C MP ####[address] [address] Bilirubin [Mass/Vol] 0.4 mg/dL Normal 0.0 - 1.2 [facility] Comment on above: Performed By: #### C MP ####[address] [address] Calcium [Mass/Vol] 8.5 mg/dL Low 8.6 - 10.3 [facility] Comment on above: Performed By: #### C MP ####[address] [address] Chloride [Moles/Vol] 99 mmol/L Normal 98 - 107 [facility] Comment on above: Performed By: #### C MP ####[address] [address] Creatinine [Mass/Vol] 1.53 mg/dL High 0.50 - 1.05 [facility] Comment on above: Performed By: #### C MP ####[address] [address] GFR/1.73 sq M.predicted among non-blacks MDRD (S/P/Bld) [Vol rate/Area] 40 mL/min/{1.73_m2} Abnormal >90 [facility] Comment on above: Result Comment: CALC ULATIONS OF ESTIMATED GFR ARE PERFORMED USING THE 2020 CKD-EPI STUDY REFIT EQUATION WITHOUT THE RACE VARIABLE FOR THE IDMS-TRACEABLE CREATININE METHODS.https://jasn.asnjournals.org/content/early// N.0539625790 Performed By: #### C MP ####[address] [address] Glucose [Mass/Vol] 147 mg/dL High 74 - 99 [facility] Comment on above: Performed By: #### C MP ####[address] [address] HCO3 (Bld) [Moles/Vol] 32 mmol/L Normal 21 - 32 [facility] Comment on above: Performed By: #### C MP ####[address] [address] Potassium [Moles/Vol] 3.7 mmol/L Normal 3.5 - 5.3 [facility] Comment on above: Performed By: #### C MP ####[address] [address] Protein [Mass/Vol] 6.1 g/dL Low 6.4 - 8.2 [facility] Comment on above: Performed By: #### C MP ####[address] [address] Sodium [Moles/Vol] 137 mmol/L Normal 136 - 145 [facility] Comment on above: Performed By: #### C MP ####[place] [address] Urea nitrogen [Mass/Vol] 8 mg/dL Normal 6 - 23 [facility] Comment on above: Performed By: #### C MP ####[place] [id number] CORONAVIRUS 2019 BY PCRon SARS-CoV-2 (COVID-19) RNA YASHIRA+probe Ql (Unsp spec) Not detected Normal Not Detected [facility] Comment on above: Result Comment: .Thi s test has received FDA Emergency Use Authorization (EUA) and has beenverified by [facility]. This test is onlyauthorized for the duration of time that circumstances exist to justify theauthorization of the emergency use of in vitro diagnostic tests for thedetection of SARS-CoV-2 virus and/or diagnosis of COVID-19 infection undersection 564(b)(1) of the Act, 21 U.S.C. 360bbb-3(b)(1), unless theauthorization is terminated or revoked sooner.[facility] is certified under CLIA-88 asqualified to perform high complexity testing. [facility] at [address] [place] [address].SARS-CoV-2/Flu/RSV Multiplex Test:Fact sheet for providers: https://www.fda.gov/media/970178/downloadFact sheet for patients: https://www.fda.gov/media/456829/download Performed By: #### C OV19 ####[place] [address] Lab Specimen Source Nasal, Nasopharyngeal Normal [facility] Comment on above: Performed By: #### C OV19 ####[place] [id number] Clinical Intervention - Phar macyon 12-10-2021 Clinical Intervention - Pharmacy Normal [facility] Consult-Nephrologyon 022 Consult-Nephrology Normal [facility] Covid 19 Resultson 2 SARS-CoV-2 (COVID-19) RNA YASHIRA+probe Ql (Unsp spec) Normal [facility] Electrocardiogram 12 Leadon 12-10-2021 Electrocardiogram 12 Lead Ventricular Rate 63 Atrial Rate 63 P-R Interval 190 QRS Duration 144 Q-T Interval 506 QTC Calculation(Bazett) 517 P [place] 71 R [place] 61 T [place] 74 QRS Count 10 Q Onset 218 P Onset 123 P Offset 183 T Offset 471 QTC Fredericia 514 Diagnosis Class Abnormal Diagnosis Normal sinus rhythm Right bundle branch block Abnormal ECG Confirmed by Rohit Blair ([id number]) on 12/22/2021 5:43:55 PM Normal [facility] LEGIONELLA AG, URINEon 12-10 Lab Specimen Source Normal [facility] Comment on above: Order Comment: TEST LEGIONELLA AG, URINE WAS CANCELLED, 12/12/2021 07:28 NO SPECIMENRECEIVED IN LAB. Performed By: #### L EGUR ####[id number] [place] [address] MAGNESIUMon 12-10-2021 Magnesium [Mass/Vol] 2.00 mg/dL Normal 1.60 - 2.40 [facility] [place]: Performed By: #### M G ####[address] [address] MRSA BY PCRon 12-10-2021 Lab Specimen Source Normal [facility] Comment on above: Order Comment: TEST MRSA BY PCR WAS CANCELLED, 12/12/2021 07:36 Pt. discharged/ no samplesent. Performed By: #### M RSA ####[address] [address] Order Reconciliationon 12-10 Order Reconciliation Normal [facility] [place] - ED v3on Provider Note - ED v3 Normal [facility]PIRATORY CULT./SM,LOWERon 12-10-2021 RESPIRATORY CULT./SM,LOWER Normal [facility] [place] on above: Performed By: #### R ESPL ####[id number] [place] [address] Risk Screen - Adult Emergenc yon 12-10-2021 Risk Screen - Adult Emergency Normal [facility] [place] STAPH/MRSA SCREENon 12-11-19 STAPH/MRSA SCREEN Normal [facility] [place] Comment on above: Performed By: #### S [facility] ####[id number] [place] [address] TROPONIN I, HIGH SENSITIVITY on 12-10-2021 TROPONIN I, HIGH SENSITIVITY 9 ng/L Normal 0 - 13 [facility] [place] above: Result Comment: .Les s than 99th percentile of normal range cutoff-Female and children under 18 years old <14 ng/L; Male <21 ng/L: NegativeRepeat testing should be performed if clinically indicated..Female and children under 18 years old 14-50 ng/L; Male 21-50 ng/L:Consistent with possible cardiac damage and possible increased clinicalrisk. Serial measurements may help to assess extent of myocardial damage..>50 ng/L: Consistent with cardiac damage, increased clinical risk andmyocardial infarction. Serial measurements may help assess extent ofmyocardial damage..NOTE: Children less than 1 year old may have higher baseline troponinlevels and results should be interpreted in conjunction with the overallclinical context..NOTE: Troponin I testing is performed using a differenttesting methodology at [facility] than at [facility]. Direct result comparisons should onlybe made within the same method. Performed By: #### T [facility] ####[facility] [place] [address] TROPONIN I, HIGH SENSITIVITY 9 ng/L Normal 0 - 13 [facility] [place] on above: Result Comment: .Les s than 99th percentile of normal range cutoff-Female and children under 18 years old <14 ng/L; Male <21 ng/L: NegativeRepeat testing should be performed if clinically indicated..Female and children under 18 years old 14-50 ng/L; Male 21-50 ng/L:Consistent with possible cardiac damage and possible increased clinicalrisk. Serial measurements may help to assess extent of myocardial damage..>50 ng/L: Consistent with cardiac damage, increased clinical risk andmyocardial infarction. Serial measurements may help assess extent ofmyocardial damage..NOTE: Children less than 1 year old may have higher baseline troponinlevels and results should be interpreted in conjunction with the overallclinical context..NOTE: Troponin I testing is performed using a differenttesting methodology at [facility] than at [facility]. Direct result comparisons should onlybe made within the same method. Performed By: #### T [facility] ####[facility] [facility] [place] [address] TROPONIN I, HIGH SENSITIVITY 8 ng/L Normal 0 - 13 [facility] [place] on above: Result Comment: .Les s than 99th percentile of normal range cutoff-Female and children under 18 years old <14 ng/L; Male <21 ng/L: NegativeRepeat testing should be performed if clinically indicated..Female and children under 18 years old 14-50 ng/L; Male 21-50 ng/L:Consistent with possible cardiac damage and possible increased clinicalrisk. Serial measurements may help to assess extent of myocardial damage..>50 ng/L: Consistent with cardiac damage, increased clinical risk andmyocardial infarction. Serial measurements may help assess extent ofmyocardial damage..NOTE: Children less than 1 year old may have higher baseline troponinlevels and results should be interpreted in conjunction with the overallclinical context..NOTE: Troponin I testing is performed using a differenttesting methodology at [facility] than at [facility]. Direct result comparisons should onlybe made within the same method. Performed By: #### T [facility] ####[facility] [facility] [place] [address] Triage - EDon 12-10-2021 Triage - ED Normal [facility] [place]IC METABOLIC PANELon 04-12 Anion gap [Moles/Vol] 16 mmol/L Normal 10 - 20 [facility] Comment on above: Performed By: #### U RIN #### [facility] [address] [place] [address] Calcium [Mass/Vol] 8.4 mg/dL Low 8.6 - 10.3 [facility] Comment on above: Performed By: #### U RIN #### [facility] [address] [place] [address] Chloride [Moles/Vol] 91 mmol/L Low 98 - 107 [facility] Comment on above: Performed By: #### U RIN #### [facility] [address] [place] [address] Creatinine [Mass/Vol] 3.54 mg/dL High 0.50 - 1.05 [facility] Comment on above: Performed By: #### U RINC #### [facility] [address] [place] [address] GFR/1.73 sq M.predicted among non-blacks MDRD (S/P/Bld) [Vol rate/Area] 15 mL/min/{1.73_m2} Abnormal >90 [facility] Comment on above: Result Comment: CALC ULATIONS OF ESTIMATED GFR ARE PERFORMED USING THE 2020 CKD-EPI STUDY REFIT EQUATION WITHOUT THE RACE VARIABLE FOR THE IDMS-TRACEABLE CREATININE METHODS. https://jasn.asnjournals.org/content/early/ASN.579674 6567 Performed By: #### U RINC #### [facility] [address] [place] [address] Glucose [Mass/Vol] 147 mg/dL High 74 - 99 [facility] Comment on above: Performed By: #### U RINC #### [facility] [address] [place] [address] HCO3 (Bld) [Moles/Vol] 26 mmol/L Normal 21 - 32 [facility] Comment on above: Performed By: #### U RINC #### [facility] [address] [place] [address] Potassium [Moles/Vol] 5.3 mmol/L Normal 3.5 - 5.3 [facility] Comment on above: Performed By: #### U RINC #### [facility] [address] [place] [address] Sodium [Moles/Vol] 128 mmol/L Low 136 - 145 [facility] Comment on above: Performed By: #### U RINC #### [facility] [address] [place] [address] Urea nitrogen [Mass/Vol] 73 mg/dL High 6 - 23 [facility] Comment on above: Performed By: #### U RINC #### [facility] [address] [place] [address] CBCon 05-04-2021 Erythrocyte distribution width (RBC) [Ratio] 15.3 % High 11.5 - 14.5 [facility] Comment on above: Performed By: #### U RINC #### [facility] [address] [place] [address] Hematocrit (Bld) [Volume fraction] 26.3 % Low 36.0 - 46.0 [facility] Comment on above: Performed By: #### U RINC #### [facility] [address] [place] [address] Hemoglobin (Bld) [Mass/Vol] 8.0 g/dL Low 12.0 - 16.0 [facility] Comment on above: Performed By: #### U RINC #### [facility] [address] [place] [address] MCHC (RBC) [Mass/Vol] 30.4 g/dL Low 32.0 - 36.0 [facility] Comment on above: Performed By: #### U RINC #### [facility] [address] [place] [address] MCV (RBC) [Entitic vol] 102 fL High 80 - 100 [facility] Comment on above: Performed By: #### U RINC #### [facility] [address] [place] [address] Platelets (Bld) [#/Vol] 142 10*3/uL Low 150 - 450 [facility] Comment on above: Performed By: #### U RINC #### [facility] [address] [place] [address] RBC 2.58 x10E12/L Low 4.00 - 5.20 [facility] Comment on above: Performed By: #### U RINC #### [facility] [address] [place] [address] WBC (Bld) [#/Vol] 7.3 10*3/uL Normal 4.4 - 11.3 [facility] Comment on above: Performed By: #### U RINC #### [facility] [address] [place] [id number] CORONAVIRUS 2019 BY PCRon SARS-CoV-2 (COVID-19) RNA YASHIRA+probe Ql (Unsp spec) Not detected Normal Not Detected [facility] Comment on above: Result Comment: . This test has received [facility] Emergency Use Authorization (EUA) and has been verified by [facility]. This test is only authorized for the duration of time that circumstances exist to justify the authorization of the emergency use of in vitro diagnostic tests for the detection of SARS-CoV-2 virus and/or diagnosis of COVID-19 infection under section 564(b)(1) of the Act, 21 U.S.C. 360bbb-3(b)(1), unless the authorization is terminated or revoked sooner. [facility] is certified under CLIA-88 as qualified to perform high complexity testing. Testing is performed in the [facility] laboratory located at [address] [place] [address]. SARS-CoV-2/Flu/RSV Multiplex Test: Fact sheet for providers: https://www.fda.gov/media/765797/download Fact sheet for patients: https://www.fda.gov/media/052942/download Performed By: #### U RINC #### [facility] [address] [place] [id number] DATE OF SYMPTOM ONSET [YYYYMMDD]? [id number] Normal [facility] Comment on above: Performed By: #### U RINC #### [facility] [address] [place] [id number] Lab Specimen Source Nasal, Nasopharyngeal Normal [facility] Comment on above: Performed By: #### U RINC #### [facility] [address] [place] [id number] Covid 19 Resultson SARS-CoV-2 (COVID-19) RNA YASHIRA+probe Ql (Unsp spec) NEGATIVE COVID-19 Test Coronaviruses are common world-wide and are the cause of many common colds. SARS-COV2 is a new coronavirus that began circulating worldwide in 2019 so we are calling it COVID-19. It has been estimated that four out of five patients with COVID-19 will recover at home without the need for medical attention. Symptoms of COVID-19 may include cough, fever, shortness of breath, loss of taste or smell and other flu-like symptoms including chills, sore muscles, sore throat, and headache. Severe illness is more common in older people and people with other health problems such as high blood pressure, obesity, and immune system problems. If the test is positive, you have COVID-19. You will be contacted by the ordering physicians office and instructed to remain on home isolation, in accordance with CDC guidelines. You may also be contacted by the [facility] to see if any of your close contacts may have been exposed to the virus and need to quarantine. If the test is negative, you likely do not have COVID-19 at this time, but you still may have a different illness that can spread to other people (like Influenza, or the Flu) and could still be at risk for getting COVID-19. We recommend that you stay away from other people to limit the spread of illness until your symptoms are improving and you are fever-free for 24 hours without the use of fever lowering medications such as acetaminophen or ibuprofen. No test is 100% accurate so if you are still concerned you may have COVID-19, talk to your doctor about the need to continue to stay away from others. Medicines Unless your provider told you not to use the following: Acetaminophen (Tylenol and others) is generally safe. Anti-inflammatory medications, such as Ibuprofen (Advil or Motrin) or Naproxen (Aleve) can also be used. Kked-mxz-vahelao cough and cold medicines can be used according to the instructions on the package. Some ekld-svy-aycwgbq medicines also contain acetaminophen. Make sure you are not taking more than your recommended dose. For those not hospitalized, there is no specific treatment available for this illness. Antibiotics do not treat Coronaviruses. Follow-Up Follow up with your doctor by scheduling a virtual visit or consider follow-up at one of our urgent care fever clinics. If you are having difficulty breathing, or are very weak and having difficulty standing, this is a medical emergency. Call 911 or have someone take you to the nearest emergency room immediately. If possible, wear a facemask. Additional guidance from the CDC for patients who tested POSITIVE for COVID-19 How to isolate: Isolate yourself in a specific room at home and limit your contact with others. Use a separate bathroom from other members of the household, when possible. Leave home only to get essential medical care. Do not go to work, school or public areas. Avoid using public transportation, ride-sharing, or taxis. Restrict contact with pets and other animals. If you must care for your pet or be around animals while you are sick, wash your hands before and after your interaction and wear a facemask. Make sure that shared spaces in the home have good airflow, such as by an air conditioner or an opened window, weather permitting. Personal Hygiene Procedures: Wear a face mask when in the same room as other people or pets. If a face mask interferes with your breathing, others should wear a mask when sharing space with you. Frequent hand-washing: wash your hands with soap and water for at least 20 seconds. If soap and water are not available, use alcohol-based hand hot tamale man. Avoid touching your eyes, nose, and mouth with unwashed hands. Household Hygiene Procedures: Avoid sharing personal household items such as dishes, glassware, cups, eating utensils, towels or bedding with other people or pets in your home. After use, these items should be washed with soap and hot water. Disinfect all high-touch surfaces every day with antibacterial cleaning solutions such as Lysol wipes, bleach, cleansers, etc. High-touch surfaces include tabletops, doorknobs, bathroom fixtures, toilets, phones, keyboards, tablets and bedside tables. Immediately clean any surfaces that may have blood, poop or body fluids on them, using antibacterial cleaning solutions such as Lysol wipes, bleach, cleansers, etc. If clothing or bedding come into contact with blood, poop or body fluids, they should be washed immediately. Follow the directions on the laundry detergent and clothing labels but hot water is recommended when possible. Stopping home isolation precautions: If possible, consult your doctor before stopping home isolation precautions. According to the CDC, you can discontinue home isolation precautions when you have met both of these criteria: Your fever and respiratory symptoms have been gone for 24 steven (more content not included)... Normal [facility] BASIC METABOLIC PANELon -2 Anion gap [Moles/Vol] 16 mmol/L Normal 10 - 20 [facility] Comment on above: Performed By: #### C BC #### [address] [id number] Calcium [Mass/Vol] 8.5 mg/dL Low 8.6 - 10.3 [facility] Comment on above: Performed By: #### C BC #### [address] [id number] Chloride [Moles/Vol] 91 mmol/L Low 98 - 107 [facility] Comment on above: Performed By: #### C BC #### [address] [id number] Creatinine [Mass/Vol] 2.52 mg/dL High 0.50 - 1.05 [facility] Comment on above: Performed By: #### C BC #### [address] [id number] GFR/1.73 sq M.predicted among non-blacks MDRD (S/P/Bld) [Vol rate/Area] 22 mL/min/{1.73_m2} Abnormal >90 [facility] Comment on above: Result Comment: CALC ULATIONS OF ESTIMATED GFR ARE PERFORMED USING THE 2020 CKD-EPI STUDY REFIT EQUATION WITHOUT THE RACE VARIABLE FOR THE IDMS-TRACEABLE CREATININE METHODS. https://jasn.asnjournals.org/content/early//ASN.797672 8675 Performed By: #### C BC #### [address] [id number] Glucose [Mass/Vol] 107 mg/dL High 74 - 99 [facility] Comment on above: Performed By: #### C BC #### [address] [id number] HCO3 (Bld) [Moles/Vol] 27 mmol/L Normal 21 - 32 [facility] Comment on above: Performed By: #### C BC #### [address] [id number] Potassium [Moles/Vol] 4.6 mmol/L Normal 3.5 - 5.3 [facility] Comment on above: Performed By: #### C BC #### [address] [id number] Sodium [Moles/Vol] 129 mmol/L Low 136 - 145 [facility] Comment on above: Performed By: #### C BC #### [address] [id number] Urea nitrogen [Mass/Vol] 41 mg/dL High 6 - 23 [facility] Comment on above: Performed By: #### C BC #### [address] [id number] CBCon 04-30-2021 Erythrocyte distribution width (RBC) [Ratio] 14.8 % High 11.5 - 14.5 [facility] Comment on above: Performed By: #### C BC #### [address] [id number] Hematocrit (Bld) [Volume fraction] 28.7 % Low 36.0 - 46.0 [facility] Comment on above: Performed By: #### C BC #### [address] [id number] Hemoglobin (Bld) [Mass/Vol] 8.5 g/dL Low 12.0 - 16.0 [facility] Comment on above: Performed By: #### C BC #### [address] [id number] MCHC (RBC) [Mass/Vol] 29.6 g/dL Low 32.0 - 36.0 [facility] Comment on above: Performed By: #### C BC #### [address] [id number] MCV (RBC) [Entitic vol] 101 fL High 80 - 100 [facility] Comment on above: Performed By: #### C BC #### [facility] [address] [place], [place] [id number] Platelets (Bld) [#/Vol] 135 10*3/uL Low 150 - 450 [facility] Comment on above: Performed By: #### C BC #### [address] [id number] RBC 2.84 x10E12/L Low 4.00 - 5.20 [facility] Comment on above: Performed By: #### C BC #### [facility] [address] [place], [place] [id number] WBC (Bld) [#/Vol] 6.5 10*3/uL Normal 4.4 - 11.3 [facility] Comment on above: Performed By: #### C BC #### [address] [id number] BASIC METABOLIC PANELon 04-11 Anion gap [Moles/Vol] 19 mmol/L Normal 10 - 20 [facility] Comment on above: Performed By: #### B LDC #### [facility] [address] [place] [address] Calcium [Mass/Vol] 8.2 mg/dL Low 8.6 - 10.3 [facility] Comment on above: Performed By: #### B LDC #### [facility] [address] [place] [address] Chloride [Moles/Vol] 91 mmol/L Low 98 - 107 [facility] Comment on above: Performed By: #### B LDC #### [facility] [address] [place] [address] Creatinine [Mass/Vol] 3.72 mg/dL High 0.50 - 1.05 [facility] Comment on above: Performed By: #### B LDC #### [facility] [address] [place] [address] GFR/1.73 sq M.predicted among non-blacks MDRD (S/P/Bld) [Vol rate/Area] 14 mL/min/{1.73_m2} Abnormal >90 [facility] Comment on above: Result Comment: CALC ULATIONS OF ESTIMATED GFR ARE PERFORMED USING THE 2020 CKD-EPI STUDY REFIT EQUATION WITHOUT THE RACE VARIABLE FOR THE IDMS-TRACEABLE CREATININE METHODS. https://jasn.asnjournals.org/content/early/ASN.557205 4687 Performed By: #### B LDC #### [facility] [address] [place] [address] Glucose [Mass/Vol] 131 mg/dL High 74 - 99 [facility] Comment on above: Performed By: #### B LDC #### [facility] [address] [place] [address] HCO3 (Bld) [Moles/Vol] 27 mmol/L Normal 21 - 32 [facility] Comment on above: Performed By: #### B LDC #### [facility] [address] [place] [address] Potassium [Moles/Vol] 4.9 mmol/L Normal 3.5 - 5.3 [facility] Comment on above: Performed By: #### B LDC #### [facility] [address] [place] [address] Sodium [Moles/Vol] 132 mmol/L Low 136 - 145 [facility] Comment on above: Performed By: #### B LDC #### [facility] [address] [place] [address] Urea nitrogen [Mass/Vol] 66 mg/dL High 6 - 23 [facility] Comment on above: Performed By: #### B LDC #### [facility] [address] [place] [address] BLOOD CULTURE, BACTERIALon 0 04-27-2021 BLOOD CULTURE, BACTERIAL PATIENT: MATTHEW NEAL LOCATION: [facility]#: [id number] : 69 AGE: SEX: F ORDERED BY: BUCK YUNG SOURCE: Blood COLLECTED: 04/27/21 10:16 ANTIBIOTICS AT [facility].: RECEIVED : 04/27/21 16:36 SITE: hd cath R E S U L T S BLOOD CULTURE, BACTERIAL FINAL 05/02/21 17:42 No Growth at 1 days No Growth at 2 days No Growth at 3 days No Growth at 4 days NO GROWTH - FINAL REPORT Normal [facility] Comment on above: Performed By: #### B MP #### [address] [id number] BLOOD CULTURE, BACTERIAL TEST BLOOD CULTURE, BACTERIAL WAS CANCELLED, 05/02/2021 21:16 NEVER TRACKED TO GO DOWN [facility] 05/02/2021 21:16. PATIENT: MATTHEW NEAL LOCATION: [facility]#: [id number] : 69 AGE: SEX: F ORDERED BY: BUCK YUNG SOURCE: Blood COLLECTED: 04/27/21 10:10 ANTIBIOTICS AT [facility].: RECEIVED : SITE: hd cath R E S U L T S BLOOD CULTURE, BACTERIAL CANCELLED 05/02/21 21:16 Normal [facility] Comment on above: Performed By: #### C BC #### [address] [id number] BLOOD CULTURE, BACTERIAL PATIENT: MATTHEW NEAL LOCATION: [facility]#: [id number] : 69 AGE: SEX: F ORDERED BY: BUCK YUNG SOURCE: Blood COLLECTED: 04/27/21 04:19 ANTIBIOTICS AT [facility].: RECEIVED : 04/27/21 15:32 SITE: PERIPHERAL R E S U L T S BLOOD CULTURE, BACTERIAL FINAL 05/02/21 15:42 No Growth at 1 days No Growth at 2 days No Growth at 3 days No Growth at 4 days NO GROWTH - FINAL REPORT Normal [facility] Comment on above: Performed By: #### C BC #### [address] [id number] CBCon 04-27-2021 Erythrocyte distribution width (RBC) [Ratio] 14.6 % High 11.5 - 14.5 [facility] Comment on above: Performed By: #### C BC #### [address] [id number] Hematocrit (Bld) [Volume fraction] 28.5 % Low 36.0 - 46.0 [facility] Comment on above: Performed By: #### C BC #### [address] [id number] Hemoglobin (Bld) [Mass/Vol] 8.5 g/dL Low 12.0 - 16.0 [facility] Comment on above: Performed By: #### C BC #### [address] [id number] MCHC (RBC) [Mass/Vol] 29.8 g/dL Low 32.0 - 36.0 [facility] Comment on above: Performed By: #### C BC #### [address] [id number] MCV (RBC) [Entitic vol] 101 fL High 80 - 100 [facility] Comment on above: Performed By: #### C BC #### [address] [id number] Platelets (Bld) [#/Vol] 114 10*3/uL Low 150 - 450 [facility] Comment on above: Performed By: #### C BC #### [address] [id number] RBC 2.82 x10E12/L Low 4.00 - 5.20 [facility] Comment on above: Performed By: #### C BC #### [address] [id number] WBC (Bld) [#/Vol] 7.2 10*3/uL Normal 4.4 - 11.3 [facility] Comment on above: Performed By: #### C BC #### [address] [id number] BASIC METABOLIC PANELon 04-11 Anion gap [Moles/Vol] 13 mmol/L Normal 10 - 20 [facility] Comment on above: Performed By: #### B MP #### [address] [id number] Calcium [Mass/Vol] 8.3 mg/dL Low 8.6 - 10.3 [facility] Comment on above: Performed By: #### B MP #### [address] [id number] Chloride [Moles/Vol] 93 mmol/L Low 98 - 107 [facility] Comment on above: Performed By: #### B MP #### [address] [id number] Creatinine [Mass/Vol] 2.70 mg/dL High 0.50 - 1.05 [facility] Comment on above: Performed By: #### B MP #### [address] [id number] GFR/1.73 sq M.predicted among non-blacks MDRD (S/P/Bld) [Vol rate/Area] 20 mL/min/{1.73_m2} Abnormal >90 [facility] Comment on above: Result Comment: CALC ULATIONS OF ESTIMATED GFR ARE PERFORMED USING THE 2020 CKD-EPI STUDY REFIT EQUATION WITHOUT THE RACE VARIABLE FOR THE IDMS-TRACEABLE CREATININE METHODS. https://jasn.asnjournals.org/content//ASN.532535 3471 Performed By: #### B MP #### [address] [id number] Glucose [Mass/Vol] 96 mg/dL Normal 74 - 99 [facility] Comment on above: Performed By: #### B MP #### [address] [id number] HCO3 (Bld) [Moles/Vol] 30 mmol/L Normal 21 - 32 [facility] Comment on above: Performed By: #### B MP #### [address] [id number] Potassium [Moles/Vol] 4.3 mmol/L Normal 3.5 - 5.3 [facility] Comment on above: Performed By: #### B MP #### [address] [id number] Sodium [Moles/Vol] 132 mmol/L Low 136 - 145 [facility] Comment on above: Performed By: #### B MP #### [address] [id number] Urea nitrogen [Mass/Vol] 35 mg/dL High 6 - 23 [facility] Comment on above: Performed By: #### B MP #### [address] [id number] BLOOD CULTURE, BACTERIALon 0 04-23-2021 BLOOD CULTURE, BACTERIAL PATIENT: MATTHEW NEAL LOCATION: [facility]#: [id number] : 69 AGE: SEX: F ORDERED BY: BUCK YUNG SOURCE: Blood COLLECTED: 04/23/21 05:01 ANTIBIOTICS AT DORON.: RECEIVED : 04/23/21 14:11 SITE: CENTRAL LINE R E S U L T S BLOOD CULTURE, BACTERIAL FINAL 04/28/21 15:42 No Growth at 1 days No Growth at 2 days No Growth at 3 days No Growth at 4 days NO GROWTH - FINAL REPORT Normal [facility] Comment on above: Performed By: #### B LDC #### [facility] [address] [place] [address] CBCon 04-23-2021 Erythrocyte distribution width (RBC) [Ratio] 14.6 % High 11.5 - 14.5 [facility] Comment on above: Performed By: #### B LDC #### [facility] [address] [place] [address] Hematocrit (Bld) [Volume fraction] 27.9 % Low 36.0 - 46.0 [facility] Comment on above: Performed By: #### B LDC #### [facility] [address] [place] [address] Hemoglobin (Bld) [Mass/Vol] 8.2 g/dL Low 12.0 - 16.0 [facility] Comment on above: Performed By: #### B LDC #### [facility] [address] [place] [address] MCHC (RBC) [Mass/Vol] 29.4 g/dL Low 32.0 - 36.0 [facility] Comment on above: Performed By: #### B LDC #### [facility] [address] [place] [address] MCV (RBC) [Entitic vol] 101 fL High 80 - 100 [facility] Comment on above: Performed By: #### B LD #### [facility] [address] [place] [address] Platelets (Bld) [#/Vol] 122 10*3/uL Low 150 - 450 [facility] Comment on above: Performed By: #### B LD #### [facility] [address] [place] [address] RBC 2.75 x10E12/L Low 4.00 - 5.20 [facility] Comment on above: Performed By: #### B LD #### [facility] [address] [place] [address] WBC (Bld) [#/Vol] 4.8 10*3/uL Normal 4.4 - 11.3 [facility] Comment on above: Performed By: #### B LD #### [facility] [address] [place] [address] BLOOD CULTURE, BACTERIALon 0 04-22-2021 BLOOD CULTURE, BACTERIAL Called- RB to ANA M [place], 04/23/2021 08:09 PATIENT: MATTHEW NEAL LOCATION: [facility]#: [id number] : 69 AGE: SEX: F ORDERED BY: BUCK YUNG SOURCE: Blood COLLECTED: 04/22/21 08:01 ANTIBIOTICS AT DORON.: RECEIVED : 04/22/21 21:43 SITE: dialysis catheter R E S U L T S BLOOD CULTURE, BACTERIAL FINAL 04/24/21 11:01 ISOLATE1 : Staphylococcus aureus AEROBIC VIAL POSITIVE METHICILLIN(OXACILLIN) RESISTANT METHICILLIN(OXACILLIN) RESISTANT STAPHYLOCOCCI ARE RESISTANT TO ALL CURRENTLY AVAILABLE PENICILLINS, BETA-LACTAM/BETA-LACTA JAGDISH INHIBITOR COMBINATIONS (INCLUDING AMPICILLIN/SULBACTAM, AMOXICILLIN/CLAVULANAT E AND PIPERACILLIN/TAZOBACTA M),CARBAPENEMS AND CEPHALOSPORINS(EXCEPT CEFTAROLINE). Organism S aureus Antibiotic BP INTRP Clindamycin S Erythromycin R Oxacillin R Trimeth/Sulfa R Tetracycline S Vancomycin S S=SUSCEPTIBLE I=INTERMEDIATE R=RESISTANT SDD=SUSCEPTIBLE DOSE DEPENDENT NS=NONSUSCEPTIBLE X=REPORTED IN ERROR Normal [facility] Comment on above: Performed By: #### B LDC #### [facility] [address] [address] C-REACTIVE PROTEINon 022 C-REACTIVE PROTEIN 6.75 mg/dL Abnormal [facility] Comment on above: Result Comment: REF VALUE < 1.00 Performed By: #### U RINC #### [facility] [address] [place] [address] CBCon 04-22-2021 Erythrocyte distribution width (RBC) [Ratio] 14.4 % Normal 11.5 - 14.5 [facility] Comment on above: Performed By: #### C MP #### [address] [id number] Hematocrit (Bld) [Volume fraction] 29.1 % Low 36.0 - 46.0 [facility] Comment on above: Performed By: #### C MP #### [address] [id number] Hemoglobin (Bld) [Mass/Vol] 8.5 g/dL Low 12.0 - 16.0 [facility] Comment on above: Performed By: #### C MP #### [address] [id number] MCHC (RBC) [Mass/Vol] 29.2 g/dL Low 32.0 - 36.0 [facility] Comment on above: Performed By: #### C MP #### [address] [id number] MCV (RBC) [Entitic vol] 102 fL High 80 - 100 [facility] Comment on above: Performed By: #### C MP #### [address] [id number] Platelets (Bld) [#/Vol] 118 10*3/uL Low 150 - 450 [facility] Comment on above: Performed By: #### C MP #### [address] [id number] RBC 2.86 x10E12/L Low 4.00 - 5.20 [facility] Comment on above: Performed By: #### C MP #### [address] [id number] WBC (Bld) [#/Vol] 5.3 10*3/uL Normal 4.4 - 11.3 [facility] Comment on above: Performed By: #### C MP #### [address] [id number] COMPREHENSIVE PANELon 2021 Albumin [Mass/Vol] 3.4 g/dL Normal 3.4 - 5.0 [facility] Comment on above: Performed By: #### C MP #### [address] [id number] ALP [Catalytic activity/Vol] 125 U/L High 33 - 110 [facility] Comment on above: Performed By: #### C MP #### [address] [id number] ALT [Catalytic activity/Vol] 14 U/L Normal 7 - 45 [facility] Comment on above: Result Comment: Patty ents treated with Sulfasalazine may generate falsely decreased results for ALT. Performed By: #### C MP #### [address] [id number] Anion gap [Moles/Vol] 15 mmol/L Normal 10 - 20 [facility] Comment on above: Performed By: #### C MP #### [address] [id number] AST [Catalytic activity/Vol] 30 U/L Normal 9 - 39 [facility] Comment on above: Performed By: #### C MP #### [address] [id number] Bilirubin [Mass/Vol] 0.6 mg/dL Normal 0.0 - 1.2 [facility] Comment on above: Performed By: #### C MP #### [address] [id number] Calcium [Mass/Vol] 8.4 mg/dL Low 8.6 - 10.3 [facility] Comment on above: Performed By: #### C MP #### [address] [id number] Chloride [Moles/Vol] 93 mmol/L Low 98 - 107 [facility] Comment on above: Performed By: #### C MP #### [address] [id number] Creatinine [Mass/Vol] 3.24 mg/dL High 0.50 - 1.05 [facility] Comment on above: Performed By: #### C MP #### [address] [id number] GFR/1.73 sq M.predicted among non-blacks MDRD (S/P/Bld) [Vol rate/Area] 16 mL/min/{1.73_m2} Abnormal >90 [facility] Comment on above: Result Comment: CALC ULATIONS OF ESTIMATED GFR ARE PERFORMED USING THE 2020 CKD-EPI STUDY REFIT EQUATION WITHOUT THE RACE VARIABLE FOR THE IDMS-TRACEABLE CREATININE METHODS. https://jasn.asnjournals.org/content/early/ASN.172814 8037 Performed By: #### C MP #### [address] [id number] Glucose [Mass/Vol] 114 mg/dL High 74 - 99 [facility] Comment on above: Performed By: #### C MP #### [address] [id number] HCO3 (Bld) [Moles/Vol] 27 mmol/L Normal 21 - 32 [facility] Comment on above: Performed By: #### C MP #### [address] [id number] Potassium [Moles/Vol] 5.0 mmol/L Normal 3.5 - 5.3 [facility] Comment on above: Performed By: #### C MP #### [address] [id number] Protein [Mass/Vol] 6.4 g/dL Normal 6.4 - 8.2 [facility] Comment on above: Performed By: #### C MP #### [address] [id number] Sodium [Moles/Vol] 130 mmol/L Low 136 - 145 [facility] Comment on above: Performed By: #### C MP #### [address] [id number] Urea nitrogen [Mass/Vol] 42 mg/dL High 6 - 23 [facility] Comment on above: Performed By: #### C MP #### [address] [id number] PROCALCITONINon 04-22-2021 PROCALCITONIN 0.56 ng/mL Abnormal <=0.07 [facility] Comment on above: Result Comment: Proc alcitonin (PCT) results measured serially can aid in decision-making for antibiotic discontinuation in patients with suspected or confirmed sepsis in conjunction with additional clinical information. Antibiotic discontinuation may be considered with a change in PCT of >80% from the peak result or when PCT falls below 0.50 ng/mL. . Procalcitonin results should not be used in isolation but should be interpreted in conjunction with additional clinical and laboratory findings. Procalcitonin results should not be used to guide the initiation of antibiotic therapy. . Falsely low PCT values in the presence of bacterial infection may occur in early infection, with atypical pathogens, localized infections, and subacute infectious endocarditis. . Falsely elevated results outside of severe bacterial infection/sepsis may be seen in patients with renal failure or insufficiency, severe trauma or simon, recent major abdominal/cardiac surgery, acute multi-organ failure, rarely in patients with medullary thyroid carcinoma and rare neuroendocrine tumors, and non-specific interfering antibodies (heterophile antibodies, rheumatoid factor, human anti-mouse antibodies (HAMA), etc). . Performance of the PCT test in pediatric patients (<18yo), women, immunocompromised patients, and patients on immunomodulatory medications has not been evaluated. Performed By: #### C MP #### [address] [id number] RESPIRATORY CULT./SM,LOWERon 04-22-2021 RESPIRATORY CULT./SM,LOWER PATIENT: MATTHEW NEAL LOCATION: [facility]#: [id number] : 69 AGE: SEX: F ORDERED BY: BENNY CASTILLO SOURCE: TRACHEAL ASPIRATE COLLECTED: 04/22/21 05:38 ANTIBIOTICS AT DORON.: RECEIVED : 04/22/21 13:46 SITE: R E S U L T S GRAM STAIN FINAL 04/22/21 18:48 2+ GRANULOCYTES. 3+ GRAM (-) BACILLI. RESPIRATORY CULT./SM,LOWER FINAL 04/25/21 13:26 4+ MIXED GRAM NEGATIVE BACTERIA. 4+ AEROBIC MIXED BACTERIA, INCLUDING PSEUDOMONAS AERUGINOSA ISOLATE1 : Pseudomonas aeruginosa 4+ Organism Ps aerug Antibiotic BP INTRP Aztreonam S Ceftazidime S Ciprofloxacin S Cefepime S Gentamicin S Levofloxacin S Piperc/Tazobact S Tobramycin S S=SUSCEPTIBLE I=INTERMEDIATE R=RESISTANT SDD=SUSCEPTIBLE DOSE DEPENDENT NS=NONSUSCEPTIBLE X=REPORTED IN ERROR Normal [facility] Comment on above: Performed By: #### U RINC #### [facility] [address] [address] CORONAVIRUS 2019 BY PCRon SARS-CoV-2 (COVID-19) RNA YASHIRA+probe Ql (Unsp spec) Not detected Normal Not Detected [facility] Comment on above: Result Comment: . This test has received FDA Emergency Use Authorization (EUA) and has been verified by [facility]. This test is only authorized for the duration of time that circumstances exist to justify the authorization of the emergency use of in vitro diagnostic tests for the detection of SARS-CoV-2 virus and/or diagnosis of COVID-19 infection under section 564(b)(1) of the Act, 21 U.S.C. 360bbb-3(b)(1), unless the authorization is terminated or revoked sooner. [facility] is certified under CLIA-88 as qualified to perform high complexity testing. Testing is performed in the [facility] laboratory located at [address] [place] [address]. SARS-CoV-2/Flu/RSV Multiplex Test: Fact sheet for providers: https://www.fda.gov/media/535443/download Fact sheet for patients: https://www.fda.gov/media/096103/download Performed By: #### C MP #### [address] [id number] [address] ABDOMEN AND PELVIS W ORAL CONTRAST ONLYon 04-21-2021 CT ABDOMEN AND PELVIS W ORAL CONTRAST ONLY Patient Name: MATTHEW NEAL STUDY: CT ABDOMEN AND PELVIS W ORAL CONTRAST ONLY; 04/21/2021 6:23 pm INDICATION: abd pain . COMPARISON: CT abdomen pelvis 04/03/2021 ACCESSION NUMBER(S): [id number] ORDERING CLINICIAN: BUCK YUNG TECHNIQUE: CT of the abdomen and pelvis was performed. Contiguous axial images were obtained at 3 mm slice thickness through the abdomen and pelvis. Coronal and sagittal reconstructions at 3 mm slice thickness were performed. No intravenous contrast was administered; positive oral contrast was given. FINDINGS: Please note that the evaluation of vessels, lymph nodes and organs is limited without intravenous contrast. LOWER CHEST: Small left-sided effusion. Cardiomegaly. ABDOMEN: LIVER: Unchanged. BILE DUCTS: No significant biliary dilatation. GALLBLADDER: Surgically absent. PANCREAS: Unchanged. SPLEEN: Unchanged. ADRENAL GLANDS: There is asymmetric thickening of the left adrenal gland which appears similar to comparison CT 04/03/2021 KIDNEYS AND URETERS: Unchanged.. No hydronephrosis. PELVIS: BLADDER: Decompressed secondary to Restrepo catheterization. REPRODUCTIVE ORGANS: Stable appearance of the uterus which demonstrates peripheral vascular calcifications. BOWEL: The 2nd portion of the duodenum appears distended with adjacent reticular changes, nonspecific. No significant distention of distal small bowel. Bowel appears otherwise unchanged. VESSELS: Extensive atherosclerotic calcifications noted about the aortoiliac axis. No evidence of aneurysm. IVC appears stable. PERITONEUM/RETROPERITO NEUM/LYMPH NODES: There is mild infiltration of the central mesentery which appears stable. Mild bilateral perinephric stranding is presumed senescent given symmetric configuration. Multiple prominent retroperitoneal lymph nodes which appear stable since prior comparison exam, largest measuring up to 2 cm in short axis along the left and periaortic region (series 501, image 45). Additional subcentimeter mesenteric lymph nodes are identified, nonspecific. Mild intra-abdominal ascites burden. Postsurgical changes along the anterior peritoneum with radiodense mesh material again noted. Stable appearing small presumed recurrent hernia along the right inferior aspect of hernia mesh (series 501, images 116-127) which appears stable. ABDOMINAL WALL: Extensive asymmetric soft tissue anasarca along the left lower chest wall and left anterior and lateral abdominal wall as previously seen. Extensive soft tissue anasarca within the lower anterior pelvic soft tissues as well as the region overlying the mons pubis. Partially imaged bilateral lower extremity extensive soft tissue anasarca. BONES: No acute fracture is seen. Osseous structures appear stable. IMPRESSION: 1. Mild distension of the 1st and 2nd portion of the duodenum with adjacent reticular changes. Clinically exclude duodenitis. 2. Extensive soft tissue anasarca as previously seen. Correlate for infectious, inflammatory, or cardiogenic causes. 3. Multiple prominent retroperitoneal lymph nodes, largest measuring up to 2 cm within the left periaortic region. Clinically correlate. 4. Evidence of prior hernia mesh repair of the anterior abdominal wall with small small bowel containing recurrent hernia along the right inferior aspect of hernia mesh. 5. Remaining findings appear similar to recent comparison CT abdomen pelvis 04/03/2021. Electronically signed by: ANITA MCDONALD MD Normal [facility] Covid 19 Resultson 2 SARS-CoV-2 (COVID-19) RNA YASHIRA+probe Ql (Unsp spec) NEGATIVE COVID-19 Test Coronaviruses are common world-wide and are the cause of many common colds. SARS-COV2 is a new coronavirus that began circulating worldwide in 2019 so we are calling it COVID-19. It has been estimated that four out of five patients with COVID-19 will recover at home without the need for medical attention. Symptoms of COVID-19 may include cough, fever, shortness of breath, loss of taste or smell and other flu-like symptoms including chills, sore muscles, sore throat, and headache. Severe illness is more common in older people and people with other health problems such as high blood pressure, obesity, and immune system problems. If the test is positive, you have COVID-19. You will be contacted by the ordering physicians office and instructed to remain on home isolation, in accordance with CDC guidelines. You may also be contacted by the [facility] to see if any of your close contacts may have been exposed to the virus and need to quarantine. If the test is negative, you likely do not have COVID-19 at this time, but you still may have a different illness that can spread to other people (like Influenza, or the Flu) and could still be at risk for getting COVID-19. We recommend that you stay away from other people to limit the spread of illness until your symptoms are improving and you are fever-free for 24 hours without the use of fever lowering medications such as acetaminophen or ibuprofen. No test is 100% accurate so if you are still concerned you may have COVID-19, talk to your doctor about the need to continue to stay away from others. Medicines Unless your provider told you not to use the following: Acetaminophen (Tylenol and others) is generally safe. Anti-inflammatory medications, such as Ibuprofen (Advil or Motrin) or Naproxen (Aleve) can also be used. Pueg-odj-esziykb cough and cold medicines can be used according to the instructions on the package. Some dprj-aqr-pqkulaz medicines also contain acetaminophen. Make sure you are not taking more than your recommended dose. For those not hospitalized, there is no specific treatment available for this illness. Antibiotics do not treat Coronaviruses. Follow-Up Follow up with your doctor by scheduling a virtual visit or consider follow-up at one of our urgent care fever clinics. If you are having difficulty breathing, or are very weak and having difficulty standing, this is a medical emergency. Call 911 or have someone take you to the nearest emergency room immediately. If possible, wear a facemask. Additional guidance from the CDC for patients who tested POSITIVE for COVID-19 How to isolate: Isolate yourself in a specific room at home and limit your contact with others. Use a separate bathroom from other members of the household, when possible. Leave home only to get essential medical care. Do not go to work, school or public areas. Avoid using public transportation, ride-sharing, or taxis. Restrict contact with pets and other animals. If you must care for your pet or be around animals while you are sick, wash your hands before and after your interaction and wear a facemask. Make sure that shared spaces in the home have good airflow, such as by an air conditioner or an opened window, weather permitting. Personal Hygiene Procedures: Wear a face mask when in the same room as other people or pets. If a face mask interferes with your breathing, others should wear a mask when sharing space with you. Frequent hand-washing: wash your hands with soap and water for at least 20 seconds. If soap and water are not available, use alcohol-based hand hot tamale man. Avoid touching your eyes, nose, and mouth with unwashed hands. Household Hygiene Procedures: Avoid sharing personal household items such as dishes, glassware, cups, eating utensils, towels or bedding with other people or pets in your home. After use, these items should be washed with soap and hot water. Disinfect all high-touch surfaces every day with antibacterial cleaning solutions such as Lysol wipes, bleach, cleansers, etc. High-touch surfaces include tabletops, doorknobs, bathroom fixtures, toilets, phones, keyboards, tablets and bedside tables. Immediately clean any surfaces that may have blood, poop or body fluids on them, using antibacterial cleaning solutions such as Lysol wipes, bleach, cleansers, etc. If clothing or bedding come into contact with blood, poop or body fluids, they should be washed immediately. Follow the directions on the laundry detergent and clothing labels but hot water is recommended when possible. Stopping home isolation precautions: If possible, consult your doctor before stopping home isolation precautions. According to the CDC, you can discontinue home isolation precautions when you have met both of these criteria: Your fever and respiratory symptoms have been gone for 24 steven (more content not included)... Normal [facility] UA MICROSCOPICon 04-21-2021 BACTERIA 4+ /HPF Abnormal [facility] Comment on above: Performed By: #### C BC #### [address] [id number] RBC 128 /HPF Abnormal 0-5 [facility] Comment on above: Performed By: #### C BC #### [address] [id number] SQUAMOUS EPITH. CELLS 26 /HPF Normal [facility] Comment on above: Performed By: #### C BC #### [address] [id number] WBC (U) [#/Vol] /uL Abnormal 0-5 [facility] Comment on above: Performed By: #### C BC #### [address] [id number] WBC CLUMPS MANY Normal [facility] Comment on above: Performed By: #### C BC #### [address] [id number] URINALYSISon 04-21-2021 Appearance (U) Canceled Normal [facility] Comment on above: Order Comment: TEST URINALYSIS WAS CANCELLED, 04/20/2021 23:09 DUPLICATE ORDER. Performed By: #### B LDC #### [facility] [address] [place] [address] ASCORBIC ACID Canceled Normal [facility] Comment on above: Order Comment: TEST URINALYSIS WAS CANCELLED, 04/20/2021 23:09 DUPLICATE ORDER. Result Comment: Conc entrations > = 20 mg/dL of ascorbic acid can be expected to cause strong interference in the reactions testing for glucose, nitrite and blood. It is recommended to discontinue Vitamin C administration and retest in 10 hours. Performed By: #### B LDC #### [facility] [address] [place] [address] Bilirubin Ql (U) Canceled Normal [facility] Comment on above: Order Comment: TEST URINALYSIS WAS CANCELLED, 04/20/2021 23:09 DUPLICATE ORDER. Performed By: #### B LDC #### [facility] [address] [place] [address] Color (U) Canceled Normal [facility] Comment on above: Order Comment: TEST URINALYSIS WAS CANCELLED, 04/20/2021 23:09 DUPLICATE ORDER. Performed By: #### B LDC #### [facility] [address] [place] [address] Glucose Ql (U) Canceled Normal [facility] Comment on above: Order Comment: TEST URINALYSIS WAS CANCELLED, 04/20/2021 23:09 DUPLICATE ORDER. Performed By: #### B LDC #### [facility] [address] [place] [address] Hemoglobin Ql (U) Canceled Normal [facility] Comment on above: Order Comment: TEST URINALYSIS WAS CANCELLED, 04/20/2021 23:09 DUPLICATE ORDER. Performed By: #### B LDC #### [facility] [address] [place] [address] Ketones Ql (U) Canceled Normal [facility] Comment on above: Order Comment: TEST URINALYSIS WAS CANCELLED, 04/20/2021 23:09 DUPLICATE ORDER. Performed By: #### B LDC #### [facility] [address] [place] [address] Leukocyte esterase Test strip Ql (U) Canceled Normal [facility] Comment on above: Order Comment: TEST URINALYSIS WAS CANCELLED, 04/20/2021 23:09 DUPLICATE ORDER. Performed By: #### B LDC #### [facility] [address] [place] [address] Nitrite Ql (U) Canceled Normal [facility] Comment on above: Order Comment: TEST URINALYSIS WAS CANCELLED, 04/20/2021 23:09 DUPLICATE ORDER. Performed By: #### B LDC #### [facility] [address] [place] [address] pH Canceled Normal [facility] Comment on above: Order Comment: TEST URINALYSIS WAS CANCELLED, 04/20/2021 23:09 DUPLICATE ORDER. Performed By: #### B LDC #### [facility] [address] [place] [address] Protein Ql (U) Canceled Normal [facility] Comment on above: Order Comment: TEST URINALYSIS WAS CANCELLED, 04/20/2021 23:09 DUPLICATE ORDER. Performed By: #### B LD #### [facility] [address] [place] [address] Specific gravity (U) [Rel density] Canceled Normal [facility] Comment on above: Order Comment: TEST URINALYSIS WAS CANCELLED, 04/20/2021 23:09 DUPLICATE ORDER. Performed By: #### B LD #### [facility] [address] [place] [address] UROBILINOGEN Canceled Normal [facility] Comment on above: Order Comment: TEST URINALYSIS WAS CANCELLED, 04/20/2021 23:09 DUPLICATE ORDER. Performed By: #### B LD #### [facility] [address] [place] [address] URINALYSIS WITH CULTURE IF I NDICATEDon 04-21-2021 Appearance (U) HAZY Normal CLEAR [facility] Comment on above: Performed By: #### C BC #### [address] [id number] Bilirubin Ql (U) Negative Normal NEGATIVE [facility] Comment on above: Performed By: #### C BC #### [address] [id number] Color (U) YELLOW Normal STRAW,YELLOW [facility] Comment on above: Performed By: #### C BC #### [address] [id number] Glucose Ql (U) Negative Normal NEGATIVE [facility] Comment on above: Performed By: #### C BC #### [address] [id number] Hemoglobin Ql (U) LARGE (3+) Abnormal NEGATIVE [facility] Comment on above: Performed By: #### C BC #### [address] [id number] Ketones Ql (U) Negative Normal NEGATIVE [facility] Comment on above: Performed By: #### C BC #### [address] [id number] Leukocyte esterase Test strip Ql (U) MODERATE (2+) Abnormal NEGATIVE [facility] Comment on above: Performed By: #### C BC #### [address] [id number] Nitrite Ql (U) Negative Normal NEGATIVE [facility] Comment on above: Performed By: #### C BC #### [address] [id number] pH (U) 6.0 [pH] Normal 5.0 - 8.0 [facility] Comment on above: Performed By: #### C BC #### [address] [id number] Protein Ql (U) >=500 (3+) Abnormal NEGATIVE [facility] Comment on above: Performed By: #### C BC #### [address] [id number] Specific gravity (U) [Rel density] 1.012 Normal 1.005 - 1.035 [facility] Comment on above: Performed By: #### C BC #### [address] [id number] Urobilinogen (U) [Mass/Vol] mg/dL Normal 0.0 - 1.9 [facility] Comment on above: Performed By: #### C BC #### [address] [id number] BASIC METABOLIC PANELon 04-11 Anion gap [Moles/Vol] 13 mmol/L Normal 10 - 20 [facility] Comment on above: Performed By: #### B LDC #### [facility] [address] [place] [address] Calcium [Mass/Vol] 8.1 mg/dL Low 8.6 - 10.3 [facility] Comment on above: Performed By: #### B LDC #### [facility] [address] [place] [address] Chloride [Moles/Vol] 96 mmol/L Low 98 - 107 [facility] Comment on above: Performed By: #### B LDC #### [facility] [address] [place] [address] Creatinine [Mass/Vol] 3.17 mg/dL High 0.50 - 1.05 [facility] Comment on above: Performed By: #### B LDC #### [facility] [address] [place] [address] GFR/1.73 sq M.predicted among non-blacks MDRD (S/P/Bld) [Vol rate/Area] 17 mL/min/{1.73_m2} Abnormal >90 [facility] Comment on above: Result Comment: CALC ULATIONS OF ESTIMATED GFR ARE PERFORMED USING THE 2020 CKD-EPI STUDY REFIT EQUATION WITHOUT THE RACE VARIABLE FOR THE IDMS-TRACEABLE CREATININE METHODS. https://jasn.asnjournals.org/content//ASN.125690 2979 Performed By: #### B LDC #### [facility] [address] [place] [address] Glucose [Mass/Vol] 126 mg/dL High 74 - 99 [facility] Comment on above: Performed By: #### B LDC #### [facility] [address] [place] [address] HCO3 (Bld) [Moles/Vol] 28 mmol/L Normal 21 - 32 [facility] Comment on above: Performed By: #### B LDC #### [facility] [address] [place] [address] Potassium [Moles/Vol] 4.8 mmol/L Normal 3.5 - 5.3 [facility] Comment on above: Performed By: #### B LDC #### [facility] [address] [place] [address] Sodium [Moles/Vol] 132 mmol/L Low 136 - 145 [facility] Comment on above: Performed By: #### B LDC #### [facility] [address] [place] [address] Urea nitrogen [Mass/Vol] 45 mg/dL High 6 - 23 [facility] Comment on above: Performed By: #### B LDC #### [facility] [address] [place] [address] BLOOD CULTURE, BACTERIALon 0 04-20-2021 BLOOD CULTURE, BACTERIAL PATIENT: MATTHEW NEAL LOCATION: [facility]#: [id number] : 69 AGE: SEX: F ORDERED BY: BUCK YUNG SOURCE: Blood COLLECTED: 04/20/21 21:33 ANTIBIOTICS AT DORON.: RECEIVED : 04/21/21 10:16 SITE: lt anti cub R E S U L T S BLOOD CULTURE, BACTERIAL FINAL 04/26/21 11:42 No Growth at 1 days No Growth at 2 days No Growth at 3 days No Growth at 4 days NO GROWTH - FINAL REPORT Normal [facility] Comment on above: Performed By: #### U RINC #### [facility] [address] [place] [address] BLOOD CULTURE, BACTERIAL PATIENT: MATTHEW NEAL LOCATION: [facility]#: [id number] : 69 AGE: SEX: F ORDERED BY: BUCK YUNG SOURCE: Blood COLLECTED: 04/20/21 21:32 ANTIBIOTICS AT DORON.: RECEIVED : 04/21/21 10:16 SITE: rt picc R E S U L T S BLOOD CULTURE, BACTERIAL FINAL 04/26/21 11:42 No Growth at 1 days No Growth at 2 days No Growth at 3 days No Growth at 4 days NO GROWTH - FINAL REPORT Normal [facility] Comment on above: Performed By: #### B LDC #### [facility] [address] [place] [address] CBCon 04-20-2021 Erythrocyte distribution width (RBC) [Ratio] 14.2 % Normal 11.5 - 14.5 [facility] Comment on above: Performed By: #### C MP #### [address] [id number] Hematocrit (Bld) [Volume fraction] 28.0 % Low 36.0 - 46.0 [facility] Comment on above: Performed By: #### C MP #### [address] [id number] Hemoglobin (Bld) [Mass/Vol] 8.2 g/dL Low 12.0 - 16.0 [facility] Comment on above: Performed By: #### C MP #### [address] [id number] MCHC (RBC) [Mass/Vol] 29.3 g/dL Low 32.0 - 36.0 [facility] Comment on above: Performed By: #### C MP #### [address] [id number] MCV (RBC) [Entitic vol] 103 fL High 80 - 100 [facility] Comment on above: Performed By: #### C MP #### [address] [id number] Platelets (Bld) [#/Vol] 139 10*3/uL Low 150 - 450 [facility] Comment on above: Performed By: #### C MP #### [address] [id number] RBC 2.73 x10E12/L Low 4.00 - 5.20 [facility] Comment on above: Performed By: #### C MP #### [address] [id number] WBC (Bld) [#/Vol] 6.2 10*3/uL Normal 4.4 - 11.3 [facility] Comment on above: Performed By: #### C MP #### [address] [id number] CHEST 1 VIEWon 04-20-2021 CHEST 1 VIEW Patient Name: MATTHEW NEAL STUDY: CHEST 1 VIEW; 04/20/2021 9:15 pm INDICATION: temp 102.5 . COMPARISON: Chest radiograph 04/09/2021 ACCESSION NUMBER(S): [id number] ORDERING CLINICIAN: BUCK YUNG FINDINGS: Right upper extremity PICC tip overlies the SVC. Right IJ catheter tip overlies the SVC. Tracheostomy tube is again seen. CARDIOMEDIASTINAL SILHOUETTE: Cardiomediastinal silhouette is stable in size and configuration. LUNGS: Prominent interstitial markings with patchy opacities throughout the lungs bilaterally, similar in appearance to prior imaging. No pneumothorax. ABDOMEN: No remarkable upper abdominal findings. BONES: No acute osseous abnormality. IMPRESSION: Interstitial and airspace opacities again seen without significant change from prior imaging. Electronically signed by: LUIS MARTINEZ MD Normal [facility] CORONAVIRUS 2019 BY PCRon DATE OF SYMPTOM ONSET [YYYYMMDD]? [id number] Normal [facility] Comment on above: Performed By: #### C MP #### [address] [id number] Lab Specimen Source Nasal, Nasopharyngeal Normal [facility] Comment on above: Performed By: #### C MP #### [address] [id number] UA MICROSCOPICon 04-20-2021 Lab Specimen Source Normal [facility] Comment on above: Performed By: #### C BC #### [address] [id number] URINE CULTURE,BACTERIALon URINE CULTURE,BACTERIAL PATIENT: MATTHEW NEAL LOCATION: [facility]#: [id number] : 69 AGE: SEX: F ORDERED BY: BUCK YUNG SOURCE: URINE COLLECTED: 04/20/21 21:35 ANTIBIOTICS AT DORON.: RECEIVED : 04/21/21 10:50 SITE: R E S U L T S URINE CULTURE,BACTERIAL FINAL 04/23/21 08:42 MULTIPLE ORGANISMS PRESENT, PROBABLE CONTAMINATION PLEASE REPEAT CULTURE. Normal [facility] Comment on above: Performed By: #### U RINC #### [facility] [address] [place] [address] BASIC METABOLIC PANELon Anion gap [Moles/Vol] 11 mmol/L Normal 10 - 20 [facility] Comment on above: Performed By: #### B LDC #### [facility] [address] [place] [address] Calcium [Mass/Vol] 7.9 mg/dL Low 8.6 - 10.3 [facility] Comment on above: Performed By: #### B LDC #### [facility] [address] [place] [address] Chloride [Moles/Vol] 97 mmol/L Low 98 - 107 [facility] Comment on above: Performed By: #### B LDC #### [facility] [address] [place] [address] Creatinine [Mass/Vol] 2.06 mg/dL High 0.50 - 1.05 [facility] Comment on above: Performed By: #### B LDC #### [facility] [address] [place] [address] GFR/1.73 sq M.predicted among non-blacks MDRD (S/P/Bld) [Vol rate/Area] 28 mL/min/{1.73_m2} Abnormal >90 [facility] Comment on above: Result Comment: CALC ULATIONS OF ESTIMATED GFR ARE PERFORMED USING THE 2020 CKD-EPI STUDY REFIT EQUATION WITHOUT THE RACE VARIABLE FOR THE IDMS-TRACEABLE CREATININE METHODS. https://jasn.asnjournals.org/content/early//ASN.659236 9705 Performed By: #### B LDC #### [facility] [address] [place] [address] Glucose [Mass/Vol] 89 mg/dL Normal 74 - 99 [facility] Comment on above: Performed By: #### B LDC #### [facility] [address] [place] [address] HCO3 (Bld) [Moles/Vol] 30 mmol/L Normal 21 - 32 [facility] Comment on above: Performed By: #### B LDC #### [facility] [address] [place] [address] Potassium [Moles/Vol] 3.3 mmol/L Low 3.5 - 5.3 [facility] Comment on above: Performed By: #### B LDC #### [facility] [address] [place] [address] Sodium [Moles/Vol] 135 mmol/L Low 136 - 145 [facility] Comment on above: Performed By: #### B LDC #### [facility] [address] [place] [address] Urea nitrogen [Mass/Vol] 17 mg/dL Normal 6 - 23 [facility] Comment on above: Performed By: #### B LDC #### [facility] [address] [place] [address] CBCon 04-16-2021 Erythrocyte distribution width (RBC) [Ratio] 14.0 % Normal 11.5 - 14.5 [facility] Comment on above: Performed By: #### C BC #### [address] [id number] Hematocrit (Bld) [Volume fraction] 29.4 % Low 36.0 - 46.0 [facility] Comment on above: Performed By: #### C BC #### [address] [id number] Hemoglobin (Bld) [Mass/Vol] 8.6 g/dL Low 12.0 - 16.0 [facility] Comment on above: Performed By: #### C BC #### [address] [id number] MCHC (RBC) [Mass/Vol] 29.3 g/dL Low 32.0 - 36.0 [facility] Comment on above: Performed By: #### C BC #### [address] [id number] MCV (RBC) [Entitic vol] 103 fL High 80 - 100 [facility] Comment on above: Performed By: #### C BC #### [address] [id number] Platelets (Bld) [#/Vol] 127 10*3/uL Low 150 - 450 [facility] Comment on above: Performed By: #### C BC #### [address] [id number] RBC 2.86 x10E12/L Low 4.00 - 5.20 [facility] Comment on above: Performed By: #### C BC #### [address] [id number] WBC (Bld) [#/Vol] 5.2 10*3/uL Normal 4.4 - 11.3 [facility] Comment on above: Performed By: #### C BC #### [address] [id number] BASIC METABOLIC PANELon 01-0 -2021 Anion gap [Moles/Vol] 13 mmol/L Normal 10 - 20 [facility] Comment on above: Performed By: #### U RINC #### [facility] [address] [place] [address] Calcium [Mass/Vol] 8.3 mg/dL Low 8.6 - 10.3 [facility] Comment on above: Performed By: #### U RINC #### [facility] [address] [place] [address] Chloride [Moles/Vol] 95 mmol/L Low 98 - 107 [facility] Comment on above: Performed By: #### U RINC #### [facility] [address] [place] [address] Creatinine [Mass/Vol] 2.65 mg/dL High 0.50 - 1.05 [facility] Comment on above: Performed By: #### U RINC #### [facility] [address] [place] [address] GFR- AM. 23 mL/min/1.73m2 Abnormal >60 [facility] Comment on above: Result Comment: CALC ULATIONS OF ESTIMATED GFR ARE PERFORMED USING THE MDRD STUDY EQUATION FOR THE IDMS-TRACEABLE CREATININE METHODS. CLIN CHEM 2007;53:766-72 Performed By: #### U RINC #### [facility] [address] [place] [address] GFR-NON AM. 19 mL/min/1.73m2 Abnormal >60 [facility] Comment on above: Performed By: #### U RINC #### [facility] [address] [place] [address] Glucose [Mass/Vol] 87 mg/dL Normal 74 - 99 [facility] Comment on above: Performed By: #### U RINC #### [facility] [address] [place] [address] HCO3 (Bld) [Moles/Vol] 30 mmol/L Normal 21 - 32 [facility] Comment on above: Performed By: #### U RINC #### [facility] [address] [place] [address] Potassium [Moles/Vol] 4.0 mmol/L Normal 3.5 - 5.3 [facility] Comment on above: Performed By: #### U RINC #### [facility] [address] [place] [address] Sodium [Moles/Vol] 134 mmol/L Low 136 - 145 [facility] Comment on above: Performed By: #### U RINC #### [facility] [address] [place] [address] Urea nitrogen [Mass/Vol] 21 mg/dL Normal 6 - 23 [facility] Comment on above: Performed By: #### U RINC #### [facility] [address] [place] [address] CBCon 04-13-2021 Erythrocyte distribution width (RBC) [Ratio] 14.1 % Normal 11.5 - 14.5 [facility] Comment on above: Performed By: #### C BC #### [address] [id number] Hematocrit (Bld) [Volume fraction] 31.7 % Low 36.0 - 46.0 [facility] Comment on above: Performed By: #### C BC #### [address] [id number] Hemoglobin (Bld) [Mass/Vol] 9.1 g/dL Low 12.0 - 16.0 [facility] Comment on above: Performed By: #### C BC #### [address] [id number] MCHC (RBC) [Mass/Vol] 28.7 g/dL Low 32.0 - 36.0 [facility] Comment on above: Performed By: #### C BC #### [address] [id number] MCV (RBC) [Entitic vol] 104 fL High 80 - 100 [facility] Comment on above: Performed By: #### C BC #### [address] [id number] Platelets (Bld) [#/Vol] 128 10*3/uL Low 150 - 450 [facility] Comment on above: Performed By: #### C BC #### [address] [id number] RBC 3.04 x10E12/L Low 4.00 - 5.20 [facility] Comment on above: Performed By: #### C BC #### [address] [id number] WBC (Bld) [#/Vol] 5.7 10*3/uL Normal 4.4 - 11.3 [facility] Comment on above: Performed By: #### C BC #### [address] [id number] FERRITINon 04-13-2021 FERRITIN 249 ug/L High 8 - 150 [facility] Comment on above: Performed By: #### B LDC #### [facility] [address] [place] [address] IRON + TIBCon 04-13-2021 % SATURATION 23 % Low 25 - 45 [facility] Comment on above: Performed By: #### B LDC #### [facility] [address] [place] [address] TIBC 164 ug/dL Low 240 - 445 [facility] Comment on above: Performed By: #### B LDC #### [facility] [address] [place] [address] Iron [Mass/Vol] 38 ug/dL Normal 35 - 150 [facility] Comment on above: Performed By: #### B LDC #### [facility] [address] [place] [address] PHOSPHORUSon 04-13-2021 Phosphate [Mass/Vol] 4.4 mg/dL Normal 2.5 - 4.9 [facility] Comment on above: Result Comment: The performance characteristics of phosphorus testing in heparinized plasma have been validated by the individual laboratory site where testing is performed. Testing on heparinized plasma is not approved by the FDA; however, such approval is not necessary. Performed By: #### C BC #### [address] [id number] BASIC METABOLIC PANELon 12-3 Anion gap [Moles/Vol] 12 mmol/L Normal 10 - 20 [facility] Comment on above: Performed By: #### U RINC #### [facility] [address] [place] [address] Calcium [Mass/Vol] 8.0 mg/dL Low 8.6 - 10.3 [facility] Comment on above: Performed By: #### U RINC #### [facility] [address] [place] [address] Chloride [Moles/Vol] 95 mmol/L Low 98 - 107 [facility] Comment on above: Performed By: #### U RINC #### [facility] [address] [place] [address] Creatinine [Mass/Vol] 1.86 mg/dL High 0.50 - 1.05 [facility] Comment on above: Performed By: #### U RINC #### [facility] [address] [place] [address] GFR- AM. 34 mL/min/1.73m2 Abnormal >60 [facility] Comment on above: Result Comment: CALC ULATIONS OF ESTIMATED GFR ARE PERFORMED USING THE MDRD STUDY EQUATION FOR THE IDMS-TRACEABLE CREATININE METHODS. CLIN CHEM 2007;53:766-72 Performed By: #### U RINC #### [facility] [address] [place] [address] GFR-NON AM. 28 mL/min/1.73m2 Abnormal >60 [facility] Comment on above: Performed By: #### U RINC #### [facility] [address] [place] [address] Glucose [Mass/Vol] 78 mg/dL Normal 74 - 99 [facility] Comment on above: Performed By: #### U RINC #### [facility] [address] [place] [address] HCO3 (Bld) [Moles/Vol] 30 mmol/L Normal 21 - 32 [facility] Comment on above: Performed By: #### U RINC #### [facility] [address] [place] [address] Potassium [Moles/Vol] 3.2 mmol/L Low 3.5 - 5.3 [facility] Comment on above: Performed By: #### U RINC #### [facility] [address] [place] [address] Sodium [Moles/Vol] 134 mmol/L Low 136 - 145 [facility] Comment on above: Performed By: #### U RINC #### [facility] [address] [place] [address] Urea nitrogen [Mass/Vol] 10 mg/dL Normal 6 - 23 [facility] Comment on above: Performed By: #### U RIN #### [facility] [address] [place] [address] CBCon 04-09-2021 Erythrocyte distribution width (RBC) [Ratio] 14.2 % Normal 11.5 - 14.5 [facility] Comment on above: Performed By: #### C BC #### [address] [id number] Hematocrit (Bld) [Volume fraction] 29.0 % Low 36.0 - 46.0 [facility] Comment on above: Performed By: #### C BC #### [address] [id number] Hemoglobin (Bld) [Mass/Vol] 8.6 g/dL Low 12.0 - 16.0 [facility] Comment on above: Performed By: #### C BC #### [address] [id number] MCHC (RBC) [Mass/Vol] 29.7 g/dL Low 32.0 - 36.0 [facility] Comment on above: Performed By: #### C BC #### [address] [id number] MCV (RBC) [Entitic vol] 102 fL High 80 - 100 [facility] Comment on above: Performed By: #### C BC #### [address] [id number] Platelets (Bld) [#/Vol] 118 10*3/uL Low 150 - 450 [facility] Comment on above: Performed By: #### C BC #### [address] [id number] RBC 2.85 x10E12/L Low 4.00 - 5.20 [facility] Comment on above: Performed By: #### C BC #### [address] [id number] WBC (Bld) [#/Vol] 4.9 10*3/uL Normal 4.4 - 11.3 [facility] Comment on above: Performed By: #### C BC #### [facility] [address] [place], [place] [id number] CHEST 1 VIEWon 04-09-2021 CHEST 1 VIEW Patient Name: MATTHEW NEAL STUDY: CHEST 1 VIEW; 04/09/2021 7:32 am INDICATION: sob . COMPARISON: 04/02/2021 ACCESSION NUMBER(S): [id number] ORDERING CLINICIAN: BENNY CASTILLO TECHNIQUE: A portable radiograph of the chest is performed. The study is limited by rotation of the patient to the left. FINDINGS: A central venous catheter and tracheostomy tube are unchanged position. A right PICC has been introduced in the interval with the tip overlying the superior vena cava. There is persistent cardiomegaly. There is ill-defined opacity throughout both lung pappas and more confluent in the left lung base. This overall appearance is similar to the previous study and could reflect diffuse infiltrates or edema. More localized airspace infiltrate and atelectasis is suspected in the left lung base. IMPRESSION: Persistent bilateral airspace infiltrates or edema more confluent in the left lung base. Continued clinical and radiographic follow-up is recommended. Electronically signed by: JOSE MCKINNEY MD Normal [facility] HEPATITIS B SURFACE AGon HEP.B SURFACE AG Non-Reactive Normal NONREACTIVE [facility] Comment on above: Result Comment: Biot in interference may cause falsely decreased results. Patients taking a Biotin dose of up to 5 mg/day should refrain from taking Biotin for 24 hours before sample collection. Providers may contact their local laboratory for further information. Performed By: #### H BSAG #### [facility] [address] [place] [address] Lab Specimen Source Normal [facility] Comment on above: Performed By: #### H BSAG #### [facility] [address] [place] [address] BASIC METABOLIC PANELon 12-2 Anion gap [Moles/Vol] 12 mmol/L Normal 10 - 20 [facility] Comment on above: Performed By: #### U RINC #### [facility] [address] [place] [address] Calcium [Mass/Vol] 8.7 mg/dL Normal 8.6 - 10.3 [facility] Comment on above: Performed By: #### U RINC #### [facility] [address] [place] [address] Chloride [Moles/Vol] 96 mmol/L Low 98 - 107 [facility] Comment on above: Performed By: #### U RINC #### [facility] [address] [place] [address] Creatinine [Mass/Vol] 2.42 mg/dL High 0.50 - 1.05 [facility] Comment on above: Performed By: #### U RINC #### [facility] [address] [place] [address] GFR- AM. 25 mL/min/1.73m2 Abnormal >60 [facility] Comment on above: Result Comment: CALC ULATIONS OF ESTIMATED GFR ARE PERFORMED USING THE MDRD STUDY EQUATION FOR THE IDMS-TRACEABLE CREATININE METHODS. CLIN CHEM 2007;53:766-72 Performed By: #### U RINC #### [facility] [address] [place] [address] GFR-NON AM. 21 mL/min/1.73m2 Abnormal >60 [facility] Comment on above: Performed By: #### U RINC #### [facility] [address] [place] [address] Glucose [Mass/Vol] 87 mg/dL Normal 74 - 99 [facility] Comment on above: Performed By: #### U RINC #### [facility] [address] [place] [address] HCO3 (Bld) [Moles/Vol] 29 mmol/L Normal 21 - 32 [facility] Comment on above: Performed By: #### U RINC #### [facility] [address] [place] [address] Potassium [Moles/Vol] 3.3 mmol/L Low 3.5 - 5.3 [facility] Comment on above: Performed By: #### U RINC #### [facility] [address] [place] [address] Sodium [Moles/Vol] 134 mmol/L Low 136 - 145 [facility] Comment on above: Performed By: #### U RINC #### [facility] [address] [place] [address] Urea nitrogen [Mass/Vol] 22 mg/dL Normal 6 - 23 [facility] Comment on above: Performed By: #### U RINC #### [facility] [address] [place] [address] CBCon 04-06-2021 Erythrocyte distribution width (RBC) [Ratio] 14.4 % Normal 11.5 - 14.5 [facility] Comment on above: Performed By: #### C MP #### [address] [id number] Hematocrit (Bld) [Volume fraction] 31.3 % Low 36.0 - 46.0 [facility] Comment on above: Performed By: #### C MP #### [address] [id number] Hemoglobin (Bld) [Mass/Vol] 9.3 g/dL Low 12.0 - 16.0 [facility] Comment on above: Performed By: #### C MP #### [address] [id number] MCHC (RBC) [Mass/Vol] 29.7 g/dL Low 32.0 - 36.0 [facility] Comment on above: Performed By: #### C MP #### [address] [id number] MCV (RBC) [Entitic vol] 104 fL High 80 - 100 [facility] Comment on above: Performed By: #### C MP #### [address] [id number] Platelets (Bld) [#/Vol] 150 10*3/uL Normal 150 - 450 [facility] Comment on above: Performed By: #### C MP #### [address] [id number] RBC 3.00 x10E12/L Low 4.00 - 5.20 [facility] Comment on above: Performed By: #### C MP #### [address] [id number] WBC (Bld) [#/Vol] 7.2 10*3/uL Normal 4.4 - 11.3 [facility] Comment on above: Performed By: #### C MP #### [address] [id number] TROPONIN Ion 04-06-2021 Troponin I.cardiac [Mass/Vol] 0.05 ng/mL High 0.00 - 0.03 [facility] Comment on above: Result Comment: LESS THAN 0.04 NG/ML: NEGATIVE REPEAT TESTING IN THREE TO SIX HOURS IF CLINICALLY INDICATED. 0.04 - 0.5 NG/ML: CONSISTENT WITH POSSIBLE CARDIAC DAMAGE AND POSSIBLE INCREASED CLINICAL RISK. SERIAL MEASUREMENTS MAY HELP ASSESS EXTENT OF MYOCARDIAL DAMAGE. >0.5 NG/ML: CONSISTENT WITH CARDIAC DAMAGE, INCREASED CLINICAL RISK AND MYOCARDIAL INFARCTION. SERIAL MEASUREMENTS MAY HELP ASSESS EXTENT OF MYOCARDIAL DAMAGE. . Note: Troponin I testing is performed using different testing methodology at [facility] than at other [facility]. Direct result comparisons should only be made within the same method. Performed By: #### [facility] #### [facility] [address] [place] [address] BASIC METABOLIC PANELon 03-12 Anion gap [Moles/Vol] 13 mmol/L Normal 10 - 20 [facility] Comment on above: Performed By: #### B MP #### [address] [id number] Calcium [Mass/Vol] 8.4 mg/dL Low 8.6 - 10.3 [facility] Comment on above: Performed By: #### B MP #### [address] [id number] Chloride [Moles/Vol] 95 mmol/L Low 98 - 107 [facility] Comment on above: Performed By: #### B MP #### [address] [id number] Creatinine [Mass/Vol] 2.62 mg/dL High 0.50 - 1.05 [facility] Comment on above: Performed By: #### B MP #### [address] [id number] GFR- AM. 23 mL/min/1.73m2 Abnormal >60 [facility] Comment on above: Result Comment: CALC ULATIONS OF ESTIMATED GFR ARE PERFORMED USING THE MDRD STUDY EQUATION FOR THE IDMS-TRACEABLE CREATININE METHODS. CLIN CHEM 2007;53:766-72 Performed By: #### B MP #### [address] [id number] GFR-NON AM. 19 mL/min/1.73m2 Abnormal >60 [facility] Comment on above: Performed By: #### B MP #### [address] [id number] Glucose [Mass/Vol] 78 mg/dL Normal 74 - 99 [facility] Comment on above: Performed By: #### B MP #### [address] [id number] HCO3 (Bld) [Moles/Vol] 29 mmol/L Normal 21 - 32 [facility] Comment on above: Performed By: #### B MP #### [address] [id number] Potassium [Moles/Vol] 3.9 mmol/L Normal 3.5 - 5.3 [facility] Comment on above: Performed By: #### B MP #### [address] [id number] Sodium [Moles/Vol] 133 mmol/L Low 136 - 145 [facility] Comment on above: Performed By: #### B MP #### [address] [id number] Urea nitrogen [Mass/Vol] 27 mg/dL High 6 - 23 [facility] Comment on above: Performed By: #### B MP #### [address] [id number] CBCon 04-03-2021 Erythrocyte distribution width (RBC) [Ratio] 14.5 % Normal 11.5 - 14.5 [facility] Comment on above: Performed By: #### B MP #### [address] [id number] Hematocrit (Bld) [Volume fraction] 32.1 % Low 36.0 - 46.0 [facility] Comment on above: Performed By: #### B MP #### [address] [id number] Hemoglobin (Bld) [Mass/Vol] 9.4 g/dL Low 12.0 - 16.0 [facility] Comment on above: Performed By: #### B MP #### [address] [id number] MCHC (RBC) [Mass/Vol] 29.3 g/dL Low 32.0 - 36.0 [facility] Comment on above: Performed By: #### B MP #### [address] [id number] MCV (RBC) [Entitic vol] 103 fL High 80 - 100 [facility] Comment on above: Performed By: #### B MP #### [address] [id number] Platelets (Bld) [#/Vol] 130 10*3/uL Low 150 - 450 [facility] Comment on above: Performed By: #### B MP #### [address] [id number] RBC 3.13 x10E12/L Low 4.00 - 5.20 [facility] Comment on above: Performed By: #### B MP #### [address] [id number] WBC (Bld) [#/Vol] 6.7 10*3/uL Normal 4.4 - 11.3 [facility] Comment on above: Performed By: #### B MP #### [address] [id number] HCT Canceled Normal [facility] Comment on above: Order Comment: TEST CBC WAS CANCELLED, 04/03/2021 06:08 Never rec'd, patient has labs fortoday.. Performed By: #### B MP #### [address] [id number] HGB Canceled Normal [facility] Comment on above: Order Comment: TEST CBC WAS CANCELLED, 04/03/2021 06:08 Never rec'd, patient has labs fortoday.. Performed By: #### B MP #### [address] [id number] MCHC Canceled Normal [facility] Comment on above: Order Comment: TEST CBC WAS CANCELLED, 04/03/2021 06:08 Never rec'd, patient has labs fortoday.. Performed By: #### B MP #### [address] [id number] MCV Canceled Normal [facility] Comment on above: Order Comment: TEST CBC WAS CANCELLED, 04/03/2021 06:08 Never rec'd, patient has labs fortoday.. Performed By: #### B MP #### [address] [id number] NUCLEATED RBC Canceled Normal [facility] Comment on above: Order Comment: TEST CBC WAS CANCELLED, 04/03/2021 06:08 Never rec'd, patient has labs fortoday.. Performed By: #### B MP #### [address] [id number] PLT Canceled Normal [facility] Comment on above: Order Comment: TEST CBC WAS CANCELLED, 04/03/2021 06:08 Never rec'd, patient has labs fortoday.. Performed By: #### B MP #### [address] [id number] RBC Canceled Normal [facility] Comment on above: Order Comment: TEST CBC WAS CANCELLED, 04/03/2021 06:08 Never rec'd, patient has labs fortoday.. Performed By: #### B MP #### [address] [id number] RDW-CV Canceled Normal [facility] Comment on above: Order Comment: TEST CBC WAS CANCELLED, 04/03/2021 06:08 Never rec'd, patient has labs fortoday.. Performed By: #### B MP #### [address] [id number] WBC Canceled Normal [facility] Comment on above: Order Comment: TEST CBC WAS CANCELLED, 04/03/2021 06:08 Never rec'd, patient has labs fortoday.. Performed By: #### B MP #### [address] [id number] COMPREHENSIVE PANELon 2020 ALBUMIN Canceled Normal [facility] Comment on above: Order Comment: TEST COMPREHENSIVE PANEL WAS CANCELLED, 04/03/2021 06:08 Never rec'd, patienthas labs for today.. Performed By: #### C BC #### [address] [id number] ALKALINE PHOSPHATASE Canceled Normal [facility] Comment on above: Order Comment: TEST COMPREHENSIVE PANEL WAS CANCELLED, 04/03/2021 06:08 Never rec'd, patienthas labs for today.. Performed By: #### C BC #### [address] [id number] ALT Canceled Normal [facility] Comment on above: Order Comment: TEST COMPREHENSIVE PANEL WAS CANCELLED, 04/03/2021 06:08 Never rec'd, patienthas labs for today.. Result Comment: Patty ents treated with Sulfasalazine may generate falsely decreased results for ALT. Performed By: #### C BC #### [address] [id number] ANION GAP Canceled Normal [facility] Comment on above: Order Comment: TEST COMPREHENSIVE PANEL WAS CANCELLED, 04/03/2021 06:08 Never rec'd, patienthas labs for today.. Performed By: #### C BC #### [address] [id number] AST Canceled Normal [facility] Comment on above: Order Comment: TEST COMPREHENSIVE PANEL WAS CANCELLED, 04/03/2021 06:08 Never rec'd, patienthas labs for today.. Performed By: #### C BC #### [address] [id number] BICARBONATE Canceled Normal [facility] Comment on above: Order Comment: TEST COMPREHENSIVE PANEL WAS CANCELLED, 04/03/2021 06:08 Never rec'd, patienthas labs for today.. Performed By: #### C BC #### [address] [id number] BILIRUBIN,TOTAL Canceled Normal [facility] Comment on above: Order Comment: TEST COMPREHENSIVE PANEL WAS CANCELLED, 04/03/2021 06:08 Never rec'd, patienthas labs for today.. Performed By: #### C BC #### [address] [id number] CALCIUM Canceled Normal [facility] Comment on above: Order Comment: TEST COMPREHENSIVE PANEL WAS CANCELLED, 04/03/2021 06:08 Never rec'd, patienthas labs for today.. Performed By: #### C BC #### [address] [id number] CHLORIDE Canceled Normal [facility] Comment on above: Order Comment: TEST COMPREHENSIVE PANEL WAS CANCELLED, 04/03/2021 06:08 Never rec'd, patienthas labs for today.. Performed By: #### C BC #### [address] [id number] CREATININE Canceled Normal [facility] Comment on above: Order Comment: TEST COMPREHENSIVE PANEL WAS CANCELLED, 04/03/2021 06:08 Never rec'd, patienthas labs for today.. Performed By: #### C BC #### [address] [id number] GFR- AM. Canceled Normal [facility] Comment on above: Order Comment: TEST COMPREHENSIVE PANEL WAS CANCELLED, 04/03/2021 06:08 Never rec'd, patienthas labs for today.. Result Comment: CALC ULATIONS OF ESTIMATED GFR ARE PERFORMED USING THE MDRD STUDY EQUATION FOR THE IDMS-TRACEABLE CREATININE METHODS. CLIN CHEM 2007;53:766-72 Performed By: #### C BC #### [address] [id number] GFR-NON AM. Canceled Normal [facility] Comment on above: Order Comment: TEST COMPREHENSIVE PANEL WAS CANCELLED, 04/03/2021 06:08 Never rec'd, patienthas labs for today.. Performed By: #### C BC #### [address] [id number] GLUCOSE Canceled Normal [facility] Comment on above: Order Comment: TEST COMPREHENSIVE PANEL WAS CANCELLED, 04/03/2021 06:08 Never rec'd, patienthas labs for today.. Performed By: #### C BC #### [address] [id number] POTASSIUM Canceled Normal [facility] Comment on above: Order Comment: TEST COMPREHENSIVE PANEL WAS CANCELLED, 04/03/2021 06:08 Never rec'd, patienthas labs for today.. Performed By: #### C BC #### [address] [id number] SODIUM Canceled Normal [facility] Comment on above: Order Comment: TEST COMPREHENSIVE PANEL WAS CANCELLED, 04/03/2021 06:08 Never rec'd, patienthas labs for today.. Performed By: #### C BC #### [address] [id number] TOTAL PROTEIN Canceled Normal [facility] Comment on above: Order Comment: TEST COMPREHENSIVE PANEL WAS CANCELLED, 04/03/2021 06:08 Never rec'd, patienthas labs for today.. Performed By: #### C BC #### [address] [phone] UREA NITROGEN Canceled Normal [facility] Comment on above: Order Comment: TEST COMPREHENSIVE PANEL WAS CANCELLED, 04/03/2021 06:08 Never rec'd, patienthas labs for today.. Performed By: #### C BC #### [address] [id number] ABDOMEN AND PELVIS W ORAL CONTRAST ONLYon 04-03-2021 CT ABDOMEN AND PELVIS W ORAL CONTRAST ONLY Patient Name: MATTHEW NEAL STUDY: CT ABDOMEN AND PELVIS W ORAL CONTRAST ONLY; 04/03/2021 3:41 pm INDICATION: MARTHA -NEW HEMODIALYSIS ACUTE OR CHRONIC RESP FX, COPD. COMPARISON: None. ACCESSION NUMBER(S): [id number] ORDERING CLINICIAN: BUCK YUNG TECHNIQUE: CT of the abdomen and pelvis was performed. Contiguous axial images were obtained at 3 mm slice thickness through the abdomen and pelvis. Coronal and sagittal reconstructions at 3 mm slice thickness were performed. No intravenous contrast was administered. Patient attempted to drink oral contrast, consuming about 75% of a 500 mL bottle. FINDINGS: Please note that the study is limited without intravenous contrast. There is also limitation as the patient has a large body habitus with a pendulous abdomen, partially projecting beyond the field of view. LOWER CHEST: Mosaic appearance of the lungs include some faint ground-glass, more likely related to air trapping the pneumonia. There is minimal left pleural fluid. The heart is moderately enlarged. ABDOMEN: LIVER: No gross focal mass. Intrahepatic IVC and hepatic veins appear dilated BILE DUCTS: No definite dilatation. GALLBLADDER: Not identified and presumed surgically absent. PANCREAS: Atrophic appearing with no acute inflammation noted SPLEEN: Nonenlarged ADRENAL GLANDS: Adrenal glands appear mildly hypertrophic KIDNEYS AND URETERS: No stones or hydronephrosis. Multiple renal vascular calcifications are noted. No gross masses are identified. PELVIS: BLADDER: Restrepo catheter is present and the bladder is empty. REPRODUCTIVE ORGANS: Peripheral calcifications are noted in the uterus which appear vascular. Uterus is elongated with no obvious masses. BOWEL: Bowel loops are nondilated. Appendix is not definitely identified. VESSELS: There is diffuse patchy atherosclerosis. Aorta shows no aneurysmal dilatation. Vena cava appears distended. PERITONEUM/RETROPERITO NEUM/LYMPH NODES: There is a small volume of ascites throughout the abdomen. No pneumoperitoneum is present. There are no pathologically enlarged retroperitoneal lymph nodes. ABDOMINAL WALL: Hyperdense material is noted at the level of the umbilicus in the midline of the abdominal wall consistent with an area of hernia repair. Immediately inferior to the abdominal wall mesh there is a small hernia containing a small bowel loop. There is diffuse subcutaneous edema, particularly throughout the patient's panniculus. This is incompletely visualized as part of the panniculus extends beyond the field of view. BONES: Bilateral L4 spondylolysis ease are present with a grade 1-2 anterolisthesis of L4 on L5. The disc is obliterated and the endplates show irregularity and some reactive sclerosis as well as subcortical cystic changes. There is no surrounding soft tissue swelling. Diffuse degenerative endplate spurs are noted. IMPRESSION: 1. Vena cava distension, small volume of ascites and diffuse anasarca are noted which are probably due to a combination of cardiac failure and the patient's renal failure 2. Small infraumbilical hernia containing a small bowel loop with no obstruction 3. Bilateral L4 spondylolysis with grade 1-2 anterolisthesis and severe degenerative changes involving disc and endplate at L4-5 Electronically signed by: LEATHA MCKOY MD, JONELLE Normal [facility] CHEST 1 VIEWon 04-02-2021 CHEST 1 VIEW Patient Name: MATTHEW NEAL STUDY: CHEST 1 VIEW; 04/02/2021 7:26 am INDICATION: SOB . COMPARISON: None ACCESSION NUMBER(S): [id number] ORDERING CLINICIAN: BUCK YUNG TECHNIQUE: Single frontal view of the chest; Portable technique FINDINGS: Well-positioned tracheostomy tube tip projects 6.5 cm above the sangeeta Well-positioned right IJ approach central line tip overlies lower SVC Cardiac silhouette borderline Hazy opacifications in both hemithoraces may be from edema or infection No large pleural effusion or pneumothorax IMPRESSION: ABOVE Electronically signed by: MIKEY MENDIOLA MD Normal [facility] Measurementson 04-02-2021 Measurements Weight: Weight in kg155.3 kilogram(s) Height: Height in cm154.9 centimeter(s) Gabonese Unit Translation (pounds, inches): Measurement Gabonese Unit Translations (Adult only): Weight in deq660.377 pound(s) Electronic Signatures: Alyssia Cobos ([facility]) (Signed 02-Apr-2021 15:04) Authored: Weight, Height, Gabonese Unit Translation (pounds, inches) Last Updated: 02-Apr-2021 15:04 by Alyssia Cobos ([facility]) Normal [facility] CULTURE URINEon 01-19-2021 CULTURE URINE Isolate 1 Providencia stuartii >100,000 cfu/mL of ORGANISM 1 Providencia stuartii ANTIBIOTIC M.I.C RX STATUS Ampicillin >=32 R F Ampicillin/Sulbactam >=32 R F Piperacillin/Tazobacta m 16 S F Cefazolin >=64 R F Ceftazidime 2 S F Ceftriaxone <=1 S F Ertapenem <=0.5 S F Imipenem 2 S F Amikacin 4 S F Gentamicin 4 R F Tobramycin 4 R F Ciprofloxacin >=4 R F Levofloxacin >=8 R F Nitrofurantoin 256 R F Trimethoprim/Sulfameth oxazole <=20 S F Normal [facility] Comment on above: Performed By: #### C BC #### [facility] [address] [place] [address] Dr. Gerard Alonzo CBC AUTO DIFFon 01-16-2021 BASO # 0.1 103/ul Normal 0.0-0.1 [facility] Comment on above: Performed By: #### C BC #### [facility] [address] [place] [address] Dr. Gerard Alonzo Basophils/100 WBC (Bld) 0.8 % Normal 0.2-2.0 [facility] Comment on above: Performed By: #### C BC #### [facility] [address] [place] [address] Dr. Gerard Alonzo EO # 0.7 103/ul Normal 0.0-0.7 [facility] Comment on above: Performed By: #### C BC #### [facility] [address] [place] [address] Dr. Gerard Alonzo Eosinophils/100 WBC (Bld) 9.1 % Critically high 0.9-7.0 [facility] Comment on above: Performed By: #### C BC #### [facility] [address] [place] [address] Dr. Gerard Alonzo Erythrocyte distribution width (RBC) [Ratio] 13.7 % Normal 11.0-15.0 [facility] Comment on above: Performed By: #### C BC #### [facility] [address] [place] [address] Dr. Gerard Alonzo Hematocrit (Bld) [Volume fraction] 31.7 % Critically low 36.0-48.0 [facility] Comment on above: Performed By: #### C BC #### [facility] [address] [place] [address] Dr. Gerard Alonzo Hemoglobin (Bld) [Mass/Vol] 9.6 g/dL Critically low 12.0-16.0 [facility] Comment on above: Performed By: #### C BC #### [facility] [address] [place] [address] Dr. Gerard Alonzo IG # 0.05 10e3/ul Critically high 0.00-0.03 [facility] Comment on above: Performed By: #### C BC #### [facility] [address] [place] [address] Dr. Gerard Alonzo IG % 0.7 % Critically high 0.0-0.5 [facility] Comment on above: Performed By: #### C BC #### [facility] [address] [place] [address] Dr. Gerard Alonzo LYMPH # 0.8 103/ul Critically low 1.2-3.8 [facility] Comment on above: Performed By: #### C BC #### [facility] [address] [place] [address] Dr. Gerard Alonzo Lymphocytes/100 WBC (Bld) 10.9 % Critically low 20.5-60.0 [facility] Comment on above: Performed By: #### C BC #### [facility] [address] [place] [address] Dr. Gerard Alonzo MANUAL DIFF REQ NO Normal [facility] Comment on above: Performed By: #### C BC #### [facility] [address] [place] [address] Dr. Gerard Alonzo MCH (RBC) [Entitic mass] 29.4 pg Normal 26.7-34.0 [facility] Comment on above: Performed By: #### C BC #### [facility] [address] [place] [address] Dr. Gerard Alonzo MCHC (RBC) [Mass/Vol] 30.3 g/dL Normal 29.9-35.2 [facility] Comment on above: Performed By: #### C BC #### [facility] [address] [place] [address] Dr. Gerard Alonzo MCV (RBC) [Entitic vol] 97.2 fL Normal 81.0-99.0 [facility] Comment on above: Performed By: #### C BC #### [facility] [address] [place] [address] Dr. Gerard Alonzo MONO # 0.5 103/ul Normal 0.3-0.8 [facility] Comment on above: Performed By: #### C BC #### [facility] [address] [place] [address] Dr. Gerard Alonzo Monocytes/100 WBC (Bld) 7.0 % Normal 1.7-12.0 [facility] Comment on above: Performed By: #### C BC #### [facility] [address] [place] [address] Dr. Gerard Alonzo NEUT # 5.1 103/ul Normal 1.4-6.5 [facility] Comment on above: Performed By: #### C BC #### [facility] [address] [place] [address] Dr. Gerard Alonzo Neutrophils/100 WBC (Bld) 71.5 % Normal 43.0-75.0 [facility] Comment on above: Performed By: #### C BC #### [facility] [address] [address] [address] Gerard Alonzo Platelet mean volume (Bld) [Entitic vol] 11.4 fL Normal 9.5-13.5 [facility] Comment on above: Performed By: #### C BC #### [facility] [address] [address] [address] Gerard Alonzo PLT 146 103/ul Critically low 150-450 [facility] Comment on above: Performed By: #### C BC #### [facility] [address] [address] [address] Gerard Alonzo RBC 3.26 106/ul Critically low 4.20-5.40 [facility] Comment on above: Performed By: #### C BC #### [facility] [address] [place] [address] Dr. Gerard Alonzo WBC 7.2 103/ul Normal 4.0-11.0 [facility] Comment on above: Performed By: #### C BC #### [facility] [address] [place] [address] ABD/PELVIS WO CONon 01-16 CT ABD/PELVIS WO CON EXAMINATION: CT ABD/PELVIS WO CON HISTORY: History of bowel obstruction , abdominal pain COMPARISON: CT abdomen pelvis 08/23/2020 TECHNIQUE: Axial, Coronal, and Sagittal images were created without IV contrast. Dose reduction techniques were achieved by using automated exposure control and/or adjustment of mA and/or kV according to patient size and/or use of iterative reconstruction technique. FINDINGS: LUNG BASES: Small left pleural effusion and moderate atelectasis versus infiltrate within the posterior left lung base and costophrenic angle. LIVER: No enlargement, atrophy, abnormal density, or significant focal lesion. BILIARY: Cholecystectomy. No abnormal duct dilation. PANCREAS: No lesion, fluid collection, ductal dilatation, or atrophy. SPLEEN: No enlargement or focal lesion. ADRENALS: Mild adreniform hypertrophy on left. KIDNEYS: Stable 2.6 cm nodule versus complex cysts projecting from the inferior pole of right kidney. Cortical irregularity versus cyst versus mass projecting from the lateral mid body of left kidney, approximately 2.4 cm. BOWEL/MESENTERY: No visible mass, obstruction, or bowel wall thickening. Short segment of bowel extends through a small opening within the lower anterior abdominal wall adjacent mass from prior hernia repair. No abnormal dilation of the bowel to suggest obstruction. Areas of fluid scattered within the mesentery, likely edema. No free air. AORTA/VASCULAR: No aneurysm or dissection. RETROPERITONEUM: No mass or adenopathy. LYMPH NODES: No adenopathy. URINARY BLADDER: No visible focal wall thickening, lesion, or calculus. PELVIC ORGANS: No visible mass. Pelvic organs appropriate for patient age. ABDOMINAL WALL: Large pannus containing a majority of bowel. Mesh along the anterior abdominal wall consistent with prior hernia repair. BONES: Grade 2 anterior listhesis of L4 on 5 with advanced degenerative disc disease and endplate changes. OTHER: Negative. IMPRESSION: 1. No bowel obstruction, evidence of perforation, or significant inflammatory changes. 2. Short loop of bowel containing within the small hernia sac of the lower anterior abdominal wall adjacent the abdominal wall mesh from prior hernia repair; no obstruction. No surrounding inflammatory changes to suggest strangulation. 3. Small left pleural effusion and basilar atelectasis versus infiltrates. 4. Nonspecific right and left renal complex cysts versus masses. Consider follow-up imaging with IV contrast. 5. L4-L5 grade 2 anterior listhesis and advanced degenerative disc disease/endplate degenerative changes. Electronically authenticated by: BRONSON ROSAS Date: 2021-01-16 17:13 Normal [facility] ER URINE PROFILEon 1 Bilirubin Ql (U) Negative Normal NEGATIVE [facility] Comment on above: Performed By: #### IGOR TAYLOR #### [facility] [address] [address] [address] Gerard Alonzo Clarity (U) CLEAR Normal CLEAR [facility] Comment on above: Performed By: #### IGOR TAYLOR #### [facility] [address] [address] [address] Gerard Alonzo Color (U) BROWN Abnormal YELLOW [facility] Comment on above: Performed By: #### IGOR TAYLOR #### [facility] [address] [address] [address] Gerard PAULSON A micrscopic examination will be performed if indicated. Normal [facility] Comment on above: Performed By: #### JACKSON TAYLORRO #### [facility] [address] [place] [address] Dr. Gerard Alonzo Glucose Ql (U) 250 mg/dl Abnormal NEGATIVE [facility] Comment on above: Performed By: #### Maribell GRIFFIN UMICRO #### [facility] [address] [place] [address] Dr. Gerard Alonzo Hemoglobin Ql (U) LARGE Abnormal NEGATIVE [facility] Comment on above: Performed By: #### Maribell GRIFFIN UMICRO #### [facility] [address] [place] [address] Dr. Gerard Alonzo Ketones Ql (U) Negative Normal NEGATIVE [facility] Comment on above: Performed By: #### Maribell GRIFFIN UMICRO #### [facility] [address] [place] [address] Dr. Gerard Alonzo LEUKOCYTES MODERATE Abnormal NEGATIVE [facility] Comment on above: Performed By: #### Maribell GRIFFIN UMICRO #### [facility] [address] [place] [address] Dr. Gerard Alonzo Nitrite Ql (U) Negative Normal NEGATIVE [facility] Comment on above: Performed By: #### Maribell GRIFFIN UMICRO #### [facility] [address] [place] [address] Dr. Gerard Alonzo pH (U) 5.5 [pH] Normal 5-9 [facility] Comment on above: Performed By: #### Maribell GRIFFIN UMICRO #### [facility] [address] [place] [address] Dr. Gerard Alonzo SPEC GRAVITY 1.025 Normal 1.005-<=1.02 5 [facility] Comment on above: Performed By: #### Maribell GRIFFIN UMICRO #### [facility] [address] [place] [address] Dr. Gerard Alonzo UA PROTEIN >300 Abnormal NEGATIVE/ TRACE [facility] Comment on above: Performed By: #### IGOR TAYLOR #### [facility] [address] [place] [address] Dr. Gerard Alonzo UR MICRO IND INDICATED Normal [facility] Comment on above: Performed By: #### IGOR TAYLOR #### [facility] [address] [place] [address] Dr. Gerard Alonzo Urobilinogen Qn (U) 0.2 {Artis'U}/dL Normal 0.2 - 1. 0 [facility] Comment on above: Performed By: #### IGOR TAYLOR #### [facility] [address] [place] [address] Dr. Gerard Alonzo LACTATE/LACTIC ACIDon 2020 Lactate [Moles/Vol] 0.7 mmol/L Normal 0.7-2.0 [facility] Comment on above: Performed By: #### C BC #### [facility] [address] [place] [address] Dr. Gerard Alonzo PROF 14(COMP METB)on 021 Albumin [Mass/Vol] 2.6 g/dL Critically low 3.5-5.[address] [facility] Comment on above: Performed By: #### C BC #### [facility] [address] [place] [address] Dr. Gerard Alonzo Albumin/Globulin [Mass ratio] 0.6 {ratio} Normal [facility] Comment on above: Performed By: #### C BC #### [facility] [address] [place] [address] Dr. Gerard Alonzo ALP [Catalytic activity/Vol] 187 U/L Critically high 38-126 [facility] Comment on above: Performed By: #### C BC #### [facility] [address] [place] [address] Dr. Gerard Alonzo ALT [Catalytic activity/Vol] 13 U/L Normal 9-52 [facility] Comment on above: Performed By: #### C BC #### [facility] [address] [place] [address] Dr. Gerard Alonzo Anion gap [Moles/Vol] 15.2 mmol/L Normal [facility] Comment on above: Performed By: #### C BC #### [facility] [address] [place] [address] Dr. Gerard Alonzo AST [Catalytic activity/Vol] 12 U/L Critically low 14-36 [facility] Comment on above: Performed By: #### C BC #### [facility] [address] [address] [address] Gerard Alonzo Bilirubin [Mass/Vol] 0.3 mg/dL Normal 0.2-1.3 [facility] Comment on above: Performed By: #### C BC #### [facility] [address] [place] [address] Dr. Gerard Alonzo Calcium [Mass/Vol] 8.3 mg/dL Critically low 8.4-10.2 [facility] Comment on above: Performed By: #### C BC #### [facility] [address] [place] [address] Dr. Gerard Alonzo Chloride [Moles/Vol] 104 mmol/L Normal 98-107 [facility] Comment on above: Performed By: #### C BC #### [facility] [address] [place] [address] Dr. Gerard Alonzo CO2 [Moles/Vol] 23.6 mmol/L Normal 22.0-30.0 [facility] Comment on above: Performed By: #### C BC #### [facility] [address] [place] [address] Dr. Gerard Alonzo Creatinine [Mass/Vol] 3.96 mg/dL Critically high 0.52-1.04 [facility] Comment on above: Performed By: #### C BC #### [facility] [address] [place] [address] Dr. Gerard Alonzo EGFR-AF EGYPTIAN 14 mL/min/1.73m2 Critically low >=60 [facility] Comment on above: Performed By: #### C BC #### [facility] [address] [place] [address] Dr. Gerard Alonzo EGFR-NON AF EGYPTIAN 12 mL/min/1.73m2 Critically low >=60 [facility] Comment on above: Performed By: #### C BC #### [facility] [address] [address] [address] Gerard Alonzo Globulin (S) [Mass/Vol] 4.1 g/dL Normal [facility] Comment on above: Performed By: #### C BC #### [facility] [address] [address] [address] Gerard Alonzo Glucose [Mass/Vol] 280 mg/dL Critically high 74-106 [facility] Comment on above: Performed By: #### C BC #### [facility] [address] [address] [address] Gerard Alonzo Potassium [Moles/Vol] 3.8 mmol/L Normal 3.4-5.0 [facility] Comment on above: Performed By: #### C BC #### [facility] [address] [place] [address] Dr. Gerard Alonzo Protein [Mass/Vol] 6.7 g/dL Normal 6.1-8.2 [facility] Comment on above: Performed By: #### C BC #### [facility] [address] [place] [address] Dr. Gerard Alonzo Sodium [Moles/Vol] 139 mmol/L Normal 137-145 [facility] Comment on above: Performed By: #### C BC #### [facility] [address] [place] [address] Dr. Gerard Alonzo Urea nitrogen [Mass/Vol] 58.0 mg/dL Critically high 7.0-17.0 [facility] Comment on above: Performed By: #### C BC #### [facility] [address] [address] [address] Gerard Alonzo Urea nitrogen/Creatinine [Mass ratio] 14.6 mg/mg Normal [facility] Comment on above: Performed By: #### C BC #### [facility] [address] [place] [address] Dr. Gerard Alonzo PROTIMEon 01-16-2021 INR Coag (PPP) [Relative time] 1.02 {INR} Normal [facility] Comment on above: Performed By: #### P T, PTT #### [facility] [address] [place] [address] Dr. Gerard Alonzo INR GUIDELINES SEE BELOW Normal [facility] Comment on above: Result Comment: LIANA RED INR: 2.0 - 3.0 CONDITIONS NOT LISTED BELOW 2.5 - 3.5 FOR PROSTHETIC HEART VALVE REPLACEMENT 2.5 - 3.5 RECURRENT THROMBOSIS Performed By: #### P T, PTT #### [facility] [address] [place] [address] Dr. Gerard Alonzo PT Coag (PPP) [Time] 11.0 s Normal 9.0-11.6 [facility] Comment on above: Performed By: #### P T, PTT #### [facility] [address] [place] [address] Dr. Gerard Alonzo PTTon 01-16-2021 aPTT Coag (Bld) [Time] 28.0 s Normal 22.3-36.2 [facility] Comment on above: Performed By: #### P T, PTT #### [facility] [address] [place] [address] Dr. Gerard Alonzo URINE MICROSCOPIC ONLYon BACTERIA SMALL Abnormal NONE SEEN [facility] Comment on above: Performed By: #### E ELIAS UMICRO #### [facility] [address] [place] [address] Dr. Gerard Alonzo Bacteria identified Cx Nom (U) INDICATED Normal [facility] Comment on above: Performed By: #### E RUR UMICRO #### [facility] [address] [place] [address] Dr. Gerard Alonzo CAST NONE SEEN Normal NONE SEEN [facility] Comment on above: Performed By: #### E RUWhit UMICRO #### [facility] [address] [place] [address] Dr. Gerard Alonzo Crystals LM Nom (Urine sed) NONE SEEN Normal NONE SEEN [facility] Comment on above: Performed By: #### E RUWhit UMICRO #### [facility] [address] [place] [address] Dr. Gerard Alonzo Epithelial cells LM Ql (Urine sed) NONE SEEN Normal NONE SEEN /RARE [facility] Comment on above: Performed By: #### JACKSON TAYLORRO #### [facility] [address] [place] [address] Dr. Gerard Alonzo MUCOUS NONE SEEN Normal NONE SEEN [facility] Comment on above: Performed By: #### Maribell GRIFFIN UMICRO #### [facility] [address] [place] [address] Dr. Gerard Alonzo RBC NONE SEEN Abnormal 0-2 [facility] Comment on above: Performed By: #### JACKSON TAYLORRO #### [facility] [address] [place] [address] Dr. Gerard Alonzo WBC 75-100 Abnormal NONE SEEN [facility] Comment on above: Performed By: #### JACKSON TAYLORRO #### [facility] [address] [place] [address] Dr. Gerard Alonzo YEAST PRESENT Abnormal NONE SEEN [facility] Comment on above: Performed By: #### Maribell GRIFFIN UMICRO #### [facility] [address] [place] [address] Dr. Gerard Alonzo Physician Orderon 01-13-2021 Physician Order [id number] Normal [facility] AMYLASEon 08-23-2020 Amylase [Catalytic activity/Vol] 33 U/L Normal 31-110 [facility] Comment on above: Performed By: #### A MY, LIPA, CMP #### [facility] [address] [place] [address] James Ileana CBC AUTO DIFFon 08-23-2020 BASO # 0.1 103/ul Normal 0.0-0.1 [facility] Comment on above: Performed By: #### C BC #### [facility] [address] [place] [address] James Ileana Basophils/100 WBC (Bld) 0.8 % Normal 0.2-2.0 [facility] Comment on above: Performed By: #### C BC #### [facility] [address] [place], [place] [address] James Ileana EO # 1.2 103/ul Critically high 0.0-0.7 [facility] Comment on above: Performed By: #### C BC #### [facility] [address] [place], [place] [address] James Ileana Eosinophils/100 WBC (Bld) 11.2 % Critically high 0.9-7.0 [facility] Comment on above: Performed By: #### C BC #### [facility] [address] [id number] James Ileana Erythrocyte distribution width (RBC) [Ratio] 16.5 % Critically high 11.0-15.0 [facility] Comment on above: Performed By: #### C BC #### [facility] [address] [id number] James Ileana Hematocrit (Bld) [Volume fraction] 29.7 % Critically low 36.0-48.0 [facility] Comment on above: Performed By: #### C BC #### [facility] [address] [id number] James Ileana Hemoglobin (Bld) [Mass/Vol] 9.1 g/dL Critically low 12.0-16.0 [facility] Comment on above: Performed By: #### C BC #### [facility] [address] [id number] James Ileana IG # 0.15 10e3/ul Critically high 0.00-0.03 [facility] Comment on above: Performed By: #### C BC #### [facility] [address] [id number] James Ileana IG % 1.5 % Critically high 0.0-0.5 [facility] Comment on above: Performed By: #### C BC #### [facility] [address] [id number] James Ileana LYMPH # 0.8 103/ul Critically low 1.2-3.8 [facility] Comment on above: Performed By: #### C BC #### [facility] [address] [place], [place] [address] James Ileana Lymphocytes/100 WBC (Bld) 7.8 % Critically low 20.5-60.0 [facility] Comment on above: Performed By: #### C BC #### [facility] [address] [place], [place] [id number] James Ileana MANUAL DIFF REQ NO Normal [facility] Comment on above: Performed By: #### C BC #### [facility] [address] [place], [place] [id number] James Ileana MCH (RBC) [Entitic mass] 29.5 pg Normal 26.7-34.0 [facility] Comment on above: Performed By: #### C BC #### [facility] [address] [place] [address] James Ileana MCHC (RBC) [Mass/Vol] 30.6 g/dL Normal 29.9-35.2 [facility] Comment on above: Performed By: #### C BC #### [facility] [address] [place], [place] [phone] James Ileana MCV (RBC) [Entitic vol] 96.4 fL Normal 81.0-99.0 [facility] Comment on above: Performed By: #### C BC #### [facility] [address] [place], [place] [id number] James Ileana MONO # 0.7 103/ul Normal 0.3-0.8 [facility] Comment on above: Performed By: #### C BC #### [facility] [address] [place], [place] [phone] James Ileana Monocytes/100 WBC (Bld) 7.0 % Normal 1.7-12.0 [facility] Comment on above: Performed By: #### C BC #### [facility] [address] [place], [place] [phone] James Ileana NEUT # 7.3 103/ul Critically high 1.4-6.5 [facility] Comment on above: Performed By: #### C BC #### [facility] [address] [place], [place] [address] James Tejeda Neutrophils/100 WBC (Bld) 71.7 % Normal 43.0-75.0 [facility] Comment on above: Performed By: #### C BC #### [facility] [address] [place], [place] [address] James Tejeda Platelet mean volume (Bld) [Entitic vol] 11.0 fL Normal 9.5-13.5 [facility] Comment on above: Performed By: #### C BC #### [facility] [address] [place], [place] [address] James Ileana PLT 187 103/ul Normal 150-450 [facility] Comment on above: Performed By: #### C BC #### [facility] [address] [place], [place] [address] James Ileana RBC 3.08 106/ul Critically low 4.20-5.40 [facility] Comment on above: Performed By: #### C BC #### [facility] [address] [place], [place] [address] Jamesalessandra Luisen WBC 10.2 103/ul Normal 4.0-11.0 [facility] Comment on above: Performed By: #### C BC #### [facility] [address] [place], [place] [address] ABD/PELVIS WO CONon 08-23 CT ABD/PELVIS WO CON CT ABD/PELVIS WO CO N, 08/22/2020 10:35 PM EDT, INDICATION: UNSPECIFIED ABDOMINAL PAIN ADDITIONAL CLINICAL INFORMATION: Ordering Provider Reason For Exam: Technologist Note: Additional: None COMPARISON: None available at the time of dictation. TECHNIQUE: CT of the abdomen and pelvis was performed without intravenous contrast at referring clinician request. Oral contrast was administered. CT dose reduction technique was used, including Automated Exposure Control. FINDINGS: Lung bases: Lung bases demonstrate atelectasis and left lower lobe. There is mild left basilar pleural fluid collection. There is no visualized right pleural or pericardial effusion. GI System: Small bowel loops are normal in caliber. There is no evidence for bowel obstruction. Liver: Visualized unenhanced liver appears within normal limits. Biliary system: There is evidence of prior cholecystectomy.. There is no intra or extrahepatic biliary ductal dilatation. Spleen: Unenhanced spleen is within normal limits. Pancreas: Unenhanced pancreas is within normal limits. System: The unenhanced kidneys and adrenal glands are within normal limits. There is an incompletely characterized cystic structures identified arising from the lower pole of the right kidney measuring 3.0 cm Urinary bladder appears grossly normal. Pelvis: No pelvic mass is visualized. Peritoneal cavity: There is complex intermediate attenuation fluid in the left abdomen. The increased attenuation may be related to beam hardening artifact due to patient body habitus and positioning. There is evidence of a previous hernia repair with recurrent nonobstructive small bowel herniation in the left lower anterior abdominal wall. Vascular: Within normal limits. Bones: No destructive osseous changes. There is grade 2 anterolisthesis of L4 over L5. There is diffuse anasarca. IMPRESSION: 1. Diffuse anasarca. 2. Intermediate attenuation fluid in the left abdomen, may represent ascites with artifactually increased Hounsfield unit measurements. Intra-abdominal blood products cannot be excluded but are considered less likely. 3. Mild left basilar pleural fluid collection. 4. Incompletely characterized 3 cm cystic structure arising from the lower pole of the right kidney. 5. Previous left anterior abdominal wall hernia repair with recurrent single loop of small bowel herniation, no bowel obstruction. 6. Grade 2 anterolisthesis of L4 over L5. Electronically authenticated by: VASILE HATFIELD Date: 2020-08-23 02:22 Normal [facility] Covid-19 PCR (CVDTBH)on 08-09 Sample Type Test performed using RT-PCR from a nasopharyngeal collected specimen. Normal [facility] Comment on above: Performed By: #### C BC #### [facility] [address] [place] [address] Dr. Gerard Alonzo SARS-CoV-2 (COVID-19) RNA YASHIRA+probe Ql (Unsp spec) Not detected Normal NOT DETECTED [facility] Comment on above: Result Comment: This test is not yet approved or cleared by the [place] FDA. When there are no FDA-approved or cleared tests available, and other criteria are met, FDA can make tests available under an emergency access mechanism called an Emergency Use Authorization (EUA). The EUA for this test is supported by the News Phot[employer] of Health and Human Service's (HHS's) declaration that circumstances exist to justify the emergency use of in vitro diagnostics for the detection and/or diagnosis of the virus that causes COVID-19. This EUA will remain in effect (meaning this test can be used) for the duration of the COVID-19 declaration justifying emergency of IVDs, unless it is terminated or revoked by FDA (after which the test may no longer be used). When diagnostic testing is negative, the possibility of a false negative should be considered in the context of a patient's recent exposures and the presence of clinical signs and symptoms consistent with SARS-CoV-2. Performed By: #### C BC #### [facility] [address] [place] [address] Dr. Gerard Alonzo LACTATE/LACTIC ACIDon 2020 Lactate [Moles/Vol] 1.1 mmol/L Normal 0.7-2.0 [facility] Comment on above: Performed By: #### L ACT #### [facility] [address] [place] [address] James Tejeda LIPASEon 08-23-2020 Lipase [Catalytic activity/Vol] 117.0 U/L Normal 23.0-300.0 [facility] Comment on above: Performed By: #### A LELE GARCIA, CMP #### [facility] [address] [place] [address] Jamesalessandra Tejeda PROF 14(COMP METB)on 021 Albumin [Mass/Vol] 2.5 g/dL Critically low 3.5-5.0 [facility] Comment on above: Performed By: #### C BC #### [facility] [address] [place] [address] Dr. Gerard Alonzo Albumin/Globulin [Mass ratio] 0.5 {ratio} Normal [facility] Comment on above: Performed By: #### C BC #### [facility] [address] [place] [address] Dr. Gerard Alonzo ALP [Catalytic activity/Vol] 172 U/L Critically high 38-126 [facility] Comment on above: Performed By: #### C BC #### [facility] [address] [place] [address] Dr. Gerard Alonzo ALT [Catalytic activity/Vol] 26 U/L Normal 9-52 [facility] Comment on above: Performed By: #### C BC #### [facility] [address] [address] [address] Gerard Alonzo Anion gap [Moles/Vol] 16.9 mmol/L Normal [facility] Comment on above: Performed By: #### C BC #### [facility] [address] [address] [address] Gerard Alonzo AST [Catalytic activity/Vol] 17 U/L Normal 14-36 [facility] Comment on above: Performed By: #### C BC #### [facility] [address] [place] [address] Dr. Gerard Alonzo Bilirubin [Mass/Vol] 0.3 mg/dL Normal 0.2-1.3 [facility] Comment on above: Performed By: #### C BC #### [facility] [address] [place] [address] Dr. Gerard Alonzo Calcium [Mass/Vol] 7.5 mg/dL Critically low 8.4-10.2 [facility] Comment on above: Performed By: #### C BC #### [facility] [address] [place] [address] Dr. Gerard Alonzo Chloride [Moles/Vol] 102 mmol/L Normal 98-107 [facility] Comment on above: Performed By: #### C BC #### [facility] [address] [address] [address] Gerard Alonzo CO2 [Moles/Vol] 23.4 mmol/L Normal 22.0-30.0 [facility] Comment on above: Performed By: #### C BC #### [facility] [address] [place] [address] Dr. Gerard Alonzo Creatinine [Mass/Vol] 3.45 mg/dL Critically high 0.52-1.04 [facility] Comment on above: Performed By: #### C BC #### [facility] [address] [place] [address] Dr. Gerard Alonzo EGFR-AF EGYPTIAN 17 mL/min/1.73m2 Critically low >=60 [facility] Comment on above: Performed By: #### C BC #### [facility] [address] [address] [address] Gerard Alonzo EGFR-NON AF EGYPTIAN 14 mL/min/1.73m2 Critically low >=60 [facility] Comment on above: Performed By: #### C BC #### [facility] [address] [address] [address] Gerard Alonzo Globulin (S) [Mass/Vol] 4.7 g/dL Normal [facility] Comment on above: Performed By: #### C BC #### [facility] [address] [address] [address] Gerard [place] Glucose [Mass/Vol] 172 mg/dL Critically high 74-106 T [facility] Comment on above: Performed By: #### C BC #### [facility] [address] [address] [address] Gerard Alonzo Potassium [Moles/Vol] 4.3 mmol/L Normal 3.4-5.0 [facility] Comment on above: Performed By: #### C BC #### [facility] [address] [address] [address] Gerard Alonzo Protein [Mass/Vol] 7.2 g/dL Normal 6.1-8.2 [facility] Comment on above: Performed By: #### C BC #### [facility] [address] [address] [address] Gerard Alonzo Sodium [Moles/Vol] 138 mmol/L Normal 137-145 [facility] Comment on above: Performed By: #### C BC #### [facility] [address] [address] [address] Gerard Alonzo Urea nitrogen [Mass/Vol] 88.0 mg/dL Critically high 7.0-17.0 [facility] Comment on above: Result Comment: test repeated critical value verified Performed By: #### C BC #### [facility] [address] [place] [address] Dr. Gerard Alonzo Urea nitrogen/Creatinine [Mass ratio] 25.5 mg/mg Normal [facility] Comment on above: Performed By: #### C BC #### [facility] [address] [place] [address] Dr. Gerard Alonzo PROTIMEon 08-23-2020 INR Coag (PPP) [Relative time] 1.09 {INR} Normal [facility] Comment on above: Performed By: #### C BC #### [facility] [address] [place] [address] Dr. Gerard Alonzo INR GUIDELINES SEE BELOW Normal [facility] Comment on above: Result Comment: LIANA RED INR: 2.0 - 3.0 CONDITIONS NOT LISTED BELOW 2.5 - 3.5 FOR PROSTHETIC HEART VALVE REPLACEMENT 2.5 - 3.5 RECURRENT THROMBOSIS Performed By: #### C BC #### [facility] [address] [place] [address] Dr. Gerard Alonzo PT Coag (PPP) [Time] 11.8 s Critically high 9.0-11.6 [facility] Comment on above: Performed By: #### C BC #### [facility] [address] [place] [address] Dr. Gerard Alonzo PTTon 08-23-2020 aPTT Coag (Bld) [Time] 29.0 s Normal 22.3-36.2 [facility] Comment on above: Performed By: #### C BC #### [facility] [address] [place] [address] Dr. Gerard Alonzo RAPID COVID-19 ANTIGENon EUA Statement SEE BELOW Normal [facility] Comment on above: Result Comment: This test has not been FDA cleared or approved, but has been authorized by the FDA under an Emergency Use Authorization (EUA) for use by authorized laboratories certified under CLIA that meet the requirements to perform moderate or high complexity testing. This test has been authorized only for the detection of proteins from SARS-CoV-2, not for any other viruses or pathogens. The emergency use of this test is authorized for the duration of the declaration that circumstances exist justifying the authorization of emergency use of in vitro diagnostic tests for detection and/or diagnosis of Covid-19 under section 564(b)(1) of the Act, 21 U.S.C. 360bbb-3(b)(1), unless the declaration is terminated or authorization is revoked sooner. Performed By: #### C BC #### [facility] [address] [place], [place] [address] Dr. Gerard Alonzo SARS-CoV-2 (COVID-19) RNA YASHIRA+probe Ql (Unsp spec) Negative Normal NEGATIVE [facility] Comment on above: Result Comment: Nega tive results are presumptive. They do not preclude infection and should not be used as the sole basis for treatment decisions. Additional confirmatory testing by a molecular method should be considered. Performed By: #### C BC #### [facility] [address] [place], [place] [address] Dr. Gerard Alonzo XR CHEST 1 Von 08-23-2020 XR CHEST 1 V Begin Addendum # 1 Right-sided PICC line catheter tip is in SVC. Original Report EXAM: Chest radiograph single view HISTORY: UNSPECIFIED ABDOMINAL PAIN COMPARISON: None. TECHNIQUE: Single AP or PA view of the chest is submitted. FINDINGS:[ The lungs are well aerated. ] [There is no evidence for pulmonary edema or pleural fluid collection. ] [No pneumothorax is visualized.] [Osseous structures are unremarkable.] Endotracheal tube tip 6.7 cm above sangeeta IMPRESSION: [No acute cardiopulmonary disease.] Normal [facility] Coding Summary.on 08-20-2020 Coding Summary. [id number] Gh 0bWw+PGhlYWQ+PC4TFLObG 94loFVewF7FP2eUUE6DAMR NWXXRVY8SFB2jhSK6IUorQ 2VybiAv EopbdWZpJW92BSl2IKS4nI gaMYyrpG3lsNLsQ2b6QwKj MF26hT71NNneLOGxDyZ3Nd ZpbjsgbWFy Y1nuKbEpjYPuMkh+PHRhYm xlIHdpZHRoPScxMDAlJyBz fLtyHN8lWn1iYHLnFPCrmR xhcHNlOiBj v3asXJGlUAhsBK7jnNxhS1 IclRU3QRBzu6v1Xp24pJI+ WKCcXYI0xCqmMFsus507Gw Meh4rdCQI5 qDYnWRonJNJ4R59dc8J3TS ZlASCqJID1iCB1lU4elOyo nfasO2JkdQDtAfA1TIU0tF VmtF6zjLai lxsrxR2iGdi+Q66AAY8VEP AOUX7KTxn2B5FqZyjtuLI+ XL43MLCzEC99qJXmyHBmb9 lheNw0ZsBx HFKeYPF7oYcjSJlyw7WmIO GhJ10moTCjc9Y0RLTpfJum yXYeVhPsnWS5oE5wDHwwhm jee1ssxins Aerku4abhz33iH68N89xWN wqDCVzGTB3ULVeCVTgyOeu lz3ugA8dRr6+QRdqi1ldq3 komAe3GbZd XGZeuxZpxItoMJQ0f3VoHr 30M9LeuAowh2WwGrd6ub73 ePXgt1X5wPG3RGfgEVPjfL 5vUUeqAfU6 QBDpAvIebS99aHFeBNjkVr 0cgDghtGvhCL6oWLFhszwr GIZpbU1bNCOgsJRwaEmaAJ 4wNTBpbjtm w506RfGqFMX8QQSeqDTvO9 WryT2yWoZhQUQsDGRhJ1Uz dZLlKZilJ645IVwaXlL0OL UzukDiN6Of SNFphWcbIzP1e6D4Ia9Tc0 NgyawzZJR4IXpeXTT9WkRj MnZnTfB1B2TeQzx3TAZivV elFV5jL0Lw MLIjzarfjsxtlVT0HEUaBJ PdgX23fAOrNUajLw5ou5N3 g639IZZaTTSgcP01Ke6sdX ogMTBwdCBU mG4ziuyrg5ysceddJaEcIM AbJCl7KNj3ARRjpArxOtRd KHD6GrJ5MLL6lMPxhP3jjJ xibagsnM8h Oyc+C34qmN1yWHT0WMR3sl xbKDThyxWvBO12EZ18R1Lv PjwvdGFibGU+PGRpdiBzdH hxBS0wZjZh t5lpd9ZaOEjqZ6WaFLNsXV biEcx9VKNvTMJ2eRO8jD6a ECCiFZkcc0J7pQF0R7Tfmm Pxtt6lm4vj QMJyWCshY10jbUWve3Y5UI YywPT9JUOitRvfTfKrcZ19 Oyc+FEHygKqrj7RyEffxh4 aig3benSn7 RoVuZQQwygWvrAccPSC3w5 ArFi43Z14hNXdjBACmWVMi MSLlRBNnlNqfou4wsK0kJc 8+PGNvbCB3 wFD1jQ2iRWOjQoP7CVokI6 22PqShiGPwMcurc2cmd4wx cTr6CpDhCBPicnMglNvvRC T8q8VjDn36 F97nAZleMRZyVTUxFYTuMZ DdlDzniq6byS4mGf0+PC9j q4ikik74zC19fVN+PHRkIH L5uPdoRDsi AWQktF8hXUaoTaN6WLMnJp SjaH19uCJiHWfjPv1naNhu aCtnXJ6cYMGqqlvmj874Mk Pxc9mgDPYb oKMwVCsrGRR5R72lz7C9YT VqOYRaJSZ9eUU5qB3ayZre bjogbGVmdDsgdmVydGljYW osGWscX881 IHRvcDsnPlBhdGllbnQgTm IwDXj4W0NoPkd0FBEzvWkl DW3fqUMqRFmkOr8otWstwS hyVW5vHCTw lymme317ZoDpm6jnAQPsqP RfDChsCXX9V54zk6T9KBWu XQZlTXV9sCQ9uL9hgYvaag ogbGVmdDsg kfHluBvxYOgnPJhxZ053LO RvcDsnPkJpcnRoIERhdGU6 ZT58ZH76lTFen1K9mCL5J2 BhZGRpbmct kerovOL9ZFKeGQDfsG11Qa 5vaVtlXv2dVDTdXCD7KBZo kKQrX1KjgL7zTtFnMOEpYJ HvM4JadOCq TEisZ054KVamUuG6CREcqc FpS9GdBAPhbTygHsO9l5S5 Zr4KX1E2DY42QZ32wEIlz5 B4pWY6O5Ps FRWafxfgssqvcRF8VQSrVS JbbJ63An1qeEczCw6eXSCu MZO4GCZxvJZzA9ZbpR9eTu AjMDAwMDAw U6VeiJOjFYxdM038WIcnWz B4UYWbfoZvZ1ByJTYusTcy YnX2r9G2Gd1OSKc3EY71NF 08xVNjq0S9 tKX6I9CqCLWlawevitfzdJ S9MYQvPECweB48Kz9myEdg Ho2vMCRvJLF2YCOfzWEyK3 YfuE6kAbLf VNSjEXLcJ7IhlKOjDTblI5 55IQygRzF0ERSzquCtW9Nz BMVnxZtyXoC5h1S7Kt7PYU HsBI03SJN5 lBB9VI06VL00Y6QpPncbyM FibGU+PHRhYmxlIHdpZHRo BFqoVMGzNrPqwButJY8fXl 9yZGVyLWNv zXkzmMZsXgEec9liJEPiOE hrPR6klUrcS8NlpOA2NVRv e2x1Yq31G82tR8AuaNH+PG YzjTJ6rGT4 pI5vRbZkYjQ2VMklH297Ke YvwRUgCovux3fbz3pfqJj2 WqC1VAYpqfPqrPkgVJK8g6 XyNe79C18i IHdpZHRoPSIxNSUiIHZhbG ftsd2prS4uIe1+PGNvbCB3 kKE7eO6cGbGxLgL2MBijF4 49InRvcCIv Byrny4zex5xnlKu7JwIqTE IpsfTgdAkaEDP1o3QoCr74 N8FaeRijr1LkLpr1qv81oW Xlw3U2mFO2 D5MaUEZswdwznIOnuJkxXL 5gQPPzulmrYGCljU0aKYOh Z7o7ZwFoPsL1GRotW3Yxim S9DWMyeQOy QDhbMME6F87ps5H6GYHnQU GqSCR7bUQ2cJ2vgGyotpir bGVmdDsgdmVydGljYWwtYW cdV928TISx tTkuBKUayH8dZVPktPBfzD ecJK5xBXQmacilBsjDK5ND RBNSVDFZAIDMKZ90XE59mF Lnb8Y4hNF0 L0ReOGMdoajorotluJP5XR RoCSEulA54qMDcESorYz8k b9J5m253OVVjTISsiC67Go 9udDogMTBw rHELrW9fsynqn0xvrtvsHm MoAPFtNVf1LWv2UHBygHym EhSpGZL4UaI0LZN0zKKenB 1hbGlnbjog gL4hZki+LZXzZGjdGBg8Rw wvdGQ+CMErVPN8cYloXTcp ZHFlcW7hGSRmH7o0RmGtJq U4FKfrW5Mf OHLyhvmbYy71gO3bSrViLy W4PVrsR2RmnzL4PWXqsKLy RZauTIY7U94ez4X9UDGbPE FtHFC7pPD3 eS9wcLsuhiisiPBloTkkbf XnqIbmIGmnYXngA355QVCk mEssRsWaVNtkVPQmQM48NA 12zWHus7X0 xYI1I3FsDUDsqvqbtkhpxP V0JWSrIHUrrN59tBEgNJul Va6tt5W1o641CRIaSLDjxQ 17Hv0mtQot VFOzxBHUeC4qwazeq4jqde ltMjAhSEKnLOg6SWr4KBCb xVgnHnFzWAY4NrV6ZFF7sY JiuT1naSxb wshjvU8yXfp+RmVtYWxlPC 30ZR66lHEgq0T7pZH3E1Xb ICJuiqtqfokekVN4NJBrBS UsoT56nRZu OTuhAe9ot6K8y539WIHxOB SipD39Je7jwSbgZHQtxERQ tX6tebqle5qikcaxDiOgZD CtLKw9NVt2 IUGbvOkzCoErQHX6FhH5IS P4hQHroQ3psTiygyhzmD2l Oyc+APQhBGSnf0Xew6SaAL 30SJ92A7Ip PjwvdGFibGU+PHRhYmxlIH dpZHRoPScxMDAlJyBzdHls VU8dQw8gWVCoGNMsxVqhyE WsAwRmz6qs TQZvUKucKM7qeJtzB0XthM U9MOBls5x7Jf24L73pV1Ke dXA+XJXiaAA5fRN4rF3cKz ShIuI1CAmm H826ZuPymDMtOzkyq9nxz1 gwkPv3ZtEnHHOosgJgsRss ZSM5m2WkLj83U13wJZqdLS RoPSIyMCUi AVHzyKdgqy7flW5jBj7+PG RuaLM5xJI9gN1zRkIeLgT1 VMcbK556MxQvlSEoTosnK4 3nG9AsmLN+ BDQfMph8IYSokVgmWA0faY JrHVhuZt7hXZD6TrWkApNc BTjhE4PkRWHkvynspphicH X3HPXwLNUm oE67Ds2soGyaPp6xLCLsBC L4DYFsuFKqY0DtrB3qKqQb WQMdJHPaB3YigDRuVXkyK0 48WVyxYwW1 XVEsueRcT3PoVIWtkEcyMj K7x9J1Bj8XjBrbmPYrXF3u HsEzSOc0C9GlDmg2URBesC alAT3hbBSz AXtbXp8xdMbneRgvPF0ySY Ccctqbu423YvQcu1urSYYx hGYkYHtcCVM7Z70tf9O4MV MwMDAwMDA7 dPT7xZ1duDwhypkwoIEafN semvQgmSxiFNxcGJbsI505 OLClgFyvQlXADud5R1AsQi n7SPXvqMac JT6mvFRfMPzcJn4pjAgcuQ irKL6uGRIflwrkb053IkWd i4zzAJKfpPVkTMtsKMX4N3 2tv1F1FXPw AUQwBYW0aGI0aE1gsNgtid ogbGVmdDsgdmVydGljYWwt YGixY805AFApjReqTv0IJo x1G7QsXhg7 NODsdByfJO5esQDiMFjjDf 3dqIfwpAxsJW0rMMVcdltx a027CnGbt6cjGQIoiAHkWG uqPGO1L19x m7V2ZLAxYVFwFOS8tHP4nL 1hbGlnbjogbGVmdDsgdmVy dDcbFRguDCjqZ916BINppN snPlBheWVy OjwvdGQ+BD00kf94W5ByIm gbCyp6KWGoDQV7nTN1tH3q BMCjWVtcl1D7rKL7B9Hgqb Huth1mf2td YXBz (more content not included)... Normal [facility] 08-06-2020 Beta hydroxybutyrate [Moles/Vol] 0.87 mmol/L High 0.02-0.27 [facility] Comment on above: Performed By: #### [id number] #### [facility] [address] [place] [address] Physician Orderon 08-06-2020 Physician Order [id number]. [id number]:127 [facility] Vital Signs Date Time Vital Sign Value Performing Clinician Facility 09-11-2024 13:55-0400 Body height 154.9 cm Stefan Linda MD Work Phone: [facility] 09-11-2024 13:55-0400 Diastolic blood pressure 66 mm[Hg] Stefan Linda MD Work Phone: [facility] 09-11-2024 13:55-0400 Heart rate 110 /min Stefan Linda MD Work Phone: [facility] 09-11-2024 13:55-0400 SaO2% (BldA) [Mass fraction] 98 % Stefan Linda MD Work Phone: [facility] 09-11-2024 13:55-0400 Systolic blood pressure 108 mm[Hg] Stefan Linda MD Work Phone: [facility] 05-09-2024 14:15-0500 Body height 154.9 cm [facility] 05-09-2024 14:15-0500 Body mass index (BMI) [Ratio] 65.41 kg/m2 [facility] 3 [facility] 05-09-2024 14:15-0500 Body weight 157.03 kg Met 3 [facility] Comment on above: 04/12/2024 01-20-2024 13:56-0400 Body height 152.4 cm Cecilio Brandt MD Work Phone: [facility] 01-20-2024 13:56-0400 Body mass index (BMI) [Ratio] 66.4 kg/m2 Cecilio Brandt MD Work Phone: [facility] 01-20-2024 13:56-0400 Body weight 154.22 kg Cecilio Brandt MD Work Phone: [facility] 01-20-2024 13:56-0400 Diastolic blood pressure 62 mm[Hg] Cecilio Brandt MD Work Phone: [facility] 01-20-2024 13:56-0400 Heart rate 123 /min Cecilio Brandt MD Work Phone: [facility] 01-20-2024 13:56-0400 SaO2% (BldA) [Mass fraction] 100 % Cecilio Brandt MD Work Phone: [facility] 01-20-2024 13:56-0400 Systolic blood pressure 82 mm[Hg] Cecilio Brandt MD Work Phone: [facility] 12-24-2023 04:03-0400 SaO2% (BldA) [Mass fraction] 99 % [facility] Comment on above: Performed By: #### ABG ####[facility] ([id number])2142 [place] [address] 12-18-2023 05:28-0400 SaO2% (BldA) [Mass fraction] 99 % [facility] Comment on above: Performed By: #### VBG ####[facility] ([id number])2 [place] [address] 11-23-2023 12:18-0400 Body height 152.4 cm Merris Ras PA-C Work Phone: [facility] 11-23-2023 12:18-0400 Body mass index (BMI) [Ratio] 63.85 kg/m2 Merris Ras PA-C Work Phone: [facility] 11-23-2023 12:18-0400 Body temperature 96.91 [degF] Merris Ras PA-C Work Phone: [facility] 11-23-2023 12:18-0400 Body weight 148.3 kg Merris Ras PA-C Work Phone: [employer] 11-11-2023 21:00-0400 Diastolic blood pressure 74 mm[Hg] Wander Paulameeta CLAIRE Work Phone: [facility] 11-11-2023 21:00-0400 Heart rate 112 /min Wander Paulameeta CLAIRE Work Phone: [employer] 11-11-2023 21:00-0400 Respiratory rate 18 /min Wander Paulameeta CLAIRE Work Phone: [employer] 11-11-2023 21:00-0400 Systolic blood pressure 111 mm[Hg] Wander Paulameeta CLAIRE Work Phone: [facility] 11-11-2023 20:00-0400 Body temperature 98.49 [degF] Wander Paulameeta CLAIRE Work Phone: [employer] 11-11-2023 12:05-0400 Body mass index (BMI) [Ratio] 63.85 kg/m2 Wander Paulameeta CLAIRE Work Phone: [employer] 11-11-2023 12:05-0400 Body weight 148.3 kg Wander Paulameeta CLAIRE Work Phone: [facility] [employer] 11-11-2023 05:42-0400 Body temperature 98.6 [degF] Wander Paulameeta CLAIRE Work Phone: [facility] 11-11-2023 05:42-0400 SaO2% (BldA) [Mass fraction] 100 % Wander Paulameeta CLAIRE [facility] Comment on above: Performed By: #### ABG ####[facility] ([id number])2142 [place] [address] 11-11-2023 05:42-0400 SaO2% (BldA) [Mass fraction] 96.0 % Wander Arias DO Work Phone[facility] 11-11-2023 05:00-0400 Body height 152.4 cm Wander Arias DO Work Phone: [facility] 11-10-2023 05:44-0400 Body temperature 98.6 [degF] Wander Arias DO Work Phone: [facility] 11-10-2023 05:44-0400 SaO2% (BldA) [Mass fraction] 97.0 % Wander Arias DO Work Phone: [facility] 11-10-2023 05:44-0400 SaO2% (BldA) [Mass fraction] 100 % Wander Arias DO Work Phone: [facility] 11-10-2023 05:41-0400 SaO2% (BldA) [Mass fraction] 100 % [facility] Comment on above: Performed By: #### ABG ####[facility] ([id number])2 [place] [address] 11-09-2023 05:21-0400 Body temperature 98.6 [degF] Wander Arias DO Work Phone: [facility] 11-09-2023 05:21-0400 SaO2% (BldA) [Mass fraction] 98.0 % Wander Arias DO Work Phone: [facility] 11-09-2023 05:21-0400 SaO2% (BldA) [Mass fraction] 98 % Wander Arias DO Work Phone: [facility] 11-09-2023 05:19-0400 SaO2% (BldA) [Mass fraction] 98 % [facility] Comment on above: Performed By: #### ABG ####[facility] ([id number])2 [place] [address] 11-08-2023 18:00-0400 Body temperature 98.6 [degF] Wander Arias DO Work Phone: [facility] 11-08-2023 18:00-0400 SaO2% (BldA) [Mass fraction] 94.0 % Wander Arias DO Work Phone: [facility] 11-08-2023 18:00-0400 SaO2% (BldA) [Mass fraction] 94 % Wander Arias DO Work Phone: [facility] 11-08-2023 17:57-0400 SaO2% (BldA) [Mass fraction] 94 % [facility] Comment on above: Performed By: #### ABG ####[facility] ([id number])2142 [place] [address] 11-08-2023 05:26-0400 Body temperature 98.6 [degF] Wander Arias DO Work Phone: [facility] 11-08-2023 05:26-0400 SaO2% (BldA) [Mass fraction] 98.0 % Wander Arias DO Work Phone: [facility] 05-06-2023 10:21-0500 Body height 154.9 cm Daniel Jones MD Work Phone: [facility] 05-06-2023 10:21-0500 Body mass index (BMI) [Ratio] 65.89 kg/m2 Daniel Jones MD Work Phone: [facility] 05-06-2023 10:21-0500 Body weight 158.08 kg Daniel Jones MD Work Phone: [facility] 05-06-2023 10:21-0500 Diastolic blood pressure 82 mm[Hg] Daniel Jones MD Work Phone: [facility] 05-06-2023 10:21-0500 Heart rate 103 /min Daniel Jones MD Work Phone: [facility] 05-06-2023 10:21-0500 SaO2% (BldA) [Mass fraction] 94 % Daniel Jones MD Work Phone: [facility] 05-06-2023 10:21-0500 Systolic blood pressure 144 mm[Hg] Daniel Jones MD Work Phone: [facility] 06-09-2022 20:00-0500 Diastolic blood pressure 59 mm[Hg] Traciezafar Martin Other Phone: [facility] 06-09-2022 20:00-0500 Heart rate 92 /min Tracie Veronica Other Phone: [facility] 06-09-2022 20:00-0500 Respiratory rate 21 /min Tracie Veronica Other Phone: [facility] 06-09-2022 20:00-0500 SaO2% (BldA) [Mass fraction] 99 % Tracie Veronica Other Phone: [facility] 06-09-2022 20:00-0500 Systolic blood pressure 112 mm[Hg] Tracie Veronica Other Phone: [facility] 06-09-2022 19:22-0500 FiO2 30 1 Tracie Veronica Other Phone: [facility] 06-09-2022 18:00-0500 Body temperature 97.52 [degF] Tracie Veronica Other Phone: [facility] 06-01-2022 14:00-0500 Body temperature 97.52 [degF] Tracie Veronica Other Phone: [facility] 06-01-2022 04:00-0500 Diastolic blood pressure 65 mm[Hg] Tracie Veronica Other Phone: [facility] 06-01-2022 04:00-0500 Heart rate 60 /min Tracie Veronica Other Phone: [facility] 06-01-2022 04:00-0500 Respiratory rate 17 /min Tracie Veronica Other Phone: [facility] 06-01-2022 04:00-0500 SaO2% (BldA) [Mass fraction] 99 % Tracie Martin Other Phone: [facility] 06-01-2022 04:00-0500 Systolic blood pressure 102 mm[Hg] Tracie Martin Other Phone: [facility] 06-01-2022 03:06-0500 FiO2 30 1 Tracie Martin Other Phone: [facility] 06-19-2021 15:00-0500 Diastolic blood pressure 69 mm[Hg] Tracie Martin Other Phone: [facility] 06-19-2021 15:00-0500 Heart rate 50 /min Tracie Martin Other Phone: [facility] 06-19-2021 15:00-0500 Respiratory rate 18 /min Tracie Martin Other Phone: [facility] 06-19-2021 15:00-0500 SaO2% (BldA) [Mass fraction] 100 % Tracie Martin Other Phone: [facility] 06-19-2021 15:00-0500 Systolic blood pressure 166 mm[Hg] Tracie Martin Other Phone: [facility] 06-19-2021 08:40-0500 Body height 172.7 cm Tracie Martin Other Phone: [facility] 06-19-2021 08:40-0500 Body temperature 96.98 [degF] Tracie Martin Other Phone: [facility] 06-19-2021 08:40-0500 Body weight 145 kg Tracie Martin Other Phone: [facility] 06-19-2021 08:40-0500 FiO2 40 1 Tracie Martin Other Phone: [facility] 06-11-2021 02:56-0500 FiO2 30 1 Tracie Veronica Other Phone: [facility] 06-11-2021 02:39-0500 Diastolic blood pressure 75 mm[Hg] Tracie Veronica Other Phone: [facility] 06-11-2021 02:39-0500 Heart rate 58 /min Tracie Veronica Other Phone: [facility] 06-11-2021 02:39-0500 Respiratory rate 18 /min Tracie Veronica Other Phone: [facility] 06-11-2021 02:39-0500 SaO2% (BldA) [Mass fraction] 98 % Tracie Veronica Other Phone: [facility] 06-11-2021 02:39-0500 Systolic blood pressure 178 mm[Hg] Tracie Veronica Other Phone: [facility] 05-06-2021 10:30-0500 Diastolic blood pressure 65 mm[Hg] Tracie Veronica Other Phone: [facility] [place] 05-06-2021 10:30-0500 Heart rate 70 /min Tracie Veronica Other Phone: [facility] [place] 05-06-2021 10:30-0500 Respiratory rate 18 /min Tracie Veronica Other Phone: [facility] [place] 05-06-2021 10:30-0500 SaO2% (BldA) [Mass fraction] 98 % Tracie Veronica Other Phone: [facility] [place] 05-06-2021 10:30-0500 Systolic blood pressure 135 mm[Hg] Tracie Veronica Other Phone: [facility] [place] 05-06-2021 07:41-0500 Body temperature 98.42 [degF] Tracie Veronica Other Phone: [facility] [place] 05-06-2021 07:10-0500 FiO2 40 1 Tracie Veronica Other Phone: [facility] [place] Encounters Encounter Date Encounter Type Care Provider Facility Start: 09-24-2024 End: 09-24-2024 Telephone encounter Domingo Tobias [employer] Work Phone: [facility] Start: 09-14-2024 End: 09-14-2024 Evaluation and management of inpatient [facility] Start: 09-13-2024 End: 09-14-2024 Admission to [facility] Phone Call Provider 1 [facility] Start: 09-11-2024 End: 09-11-2024 Office outpatient visit 25 minutes Stefan Linda MD Work Phone: [facility] Comment on above: Preoperative cardiov ascular examination (Primary Dx); Atrial fibrillation/flutter (CMS-HCC) Start: 09-11-2024 End: 09-11-2024 Patient encounter status Stefan Linda MD Work Phone: [facility] Work Phone: Start: 09-11-2024 End: 09-11-2024 ambulatory [facility] Start: 09-10-2024 End: 09-10-2024 Telephone encounter Sandy Aguilar [facility] Start: 08-31-2024 End: 08-31-2024 Emergency department patient visit [facility] Start: 08-14-2024 End: 08-14-2024 Admission to [facility] Phone Call Provider 2 [facility] Start: 07-27-2024 End: 07-27-2024 Telephone encounter Domingo Tobias [employer] Work Phone: [facility] Start: 07-26-2024 End: 07-26-2024 Evaluation and management of inpatient [facility] Start: 07-11-2024 End: 07-11-2024 Telephone encounter Domingo Tobias [employer] Work Phone: [facility] Start: 06-28-2024 End: 06-28-2024 ambulatory DOMINGO TOBIAS [facility] Start: 05-29-2024 End: 05-29-2024 Telephone encounter Domingo Tobias [employer] Work Phone: [facility] Start: 05-16-2024 End: 05-16-2024 ambulatory LETICIA Whit DANIELLE [facility] Start: 05-11-2024 End: 05-11-2024 ambulatory ISHMAEL GUTIERREZ [facility] Start: 05-11-2024 End: 05-11-2024 Phys/qhp telephone evaluation 5-10 min Ishmael Gutierrez PA-C Work [facility] Comment on above: Closed displaced sup racondylar fracture with intracondylar extension of lower end of left femur with routine healing (Primary Dx) Start: 05-09-2024 End: 05-09-2024 Evaluation and management of inpatient [facility] Start: 05-08-2024 End: 05-09-2024 Admission to [facility] Phone Call Provider 3 Ke[facility] Start: 05-07-2024 End: 05-07-2024 Telephone encounter Delfina Miner RN [facility] [facility] Orthopedics/Trauma and Adult Reconstruction Start: 05-02-2024 End: 05-02-2024 Telephone encounter Domingo Tobias MEAT PACKER Work Phone: [facility] Start: 04-27-2024 End: 04-27-2024 Evaluation and management of inpatient MAXIMO MOSCOSO [facility] Start: 04-25-2024 End: 04-25-2024 Evaluation and management of inpatient [facility] Start: 04-24-2024 End: 04-25-2024 Admission to [facility] Phone Call Provider 4 [facility] Start: 04-18-2024 End: 04-19-2024 Emergency department patient visit [facility] Start: 04-13-2024 End: 04-13-2024 Telephone encounter Domingo Tobias MEAT PACKER Work Phone: [facility] Start: 04-11-2024 End: 04-11-2024 Telephone encounter Domingo Tobias MEAT PACKER Work Phone: [facility] Start: 03-15-2024 End: 03-15-2024 [facility] Start: 03-07-2024 End: 03-07-2024 ambulatory [facility] Start: 02-24-2024 End: 02-24-2024 Telephone encounter Enoch [facility] Comment on above: Canceled Appt Start: 02-22-2024 End: 02-22-2024 Orders Only Jeanette [facility] Comment on above: End stage renal dise ase ([facility]) (Primary Dx) Start: 02-08-2024 End: 02-08-2024 [facility] Start: 02-07-2024 End: 02-07-2024 ambulatory [facility] Start: 02-07-2024 End: 02-07-2024 Telephone encounter Domingo Tobias MEAT PACKER Work Phone: [facility] Start: 02-06-2024 End: 02-06-2024 ambulatory LETICIA SANTOS [facility] Start: 01-30-2024 End: 01-30-2024 Telephone encounter Venice sherman Comment on above: new consult (Managem ent of patient vent.) Catheter replacement Start: 01-30-2024 End: 02-02-2024 [facility] Start: 01-29-2024 End: 01-30-2024 Emergency department patient visit JULIÁN Bunch GALLITO [facility] Start: 01-25-2024 End: 01-25-2024 ambulatory ISHMAEL Ch [facility] Start: 01-20-2024 End: 01-20-2024 Office outpatient visit 25 minutes Cecilio Brandt MD [facility]: [facility] Comment on above: Chronic heart failur e with preserved ejection fraction (HFpEF) ([facility]) (Primary Dx); Atrial fibrillation/flutter ([facility]); Hx of coronary artery disease; Primary hypertension Start: 01-20-2024 End: 01-20-2024 ambulatory WESLEY KIM [facility] Start: 01-19-2024 End: 01-19-2024 Telephone encounter Sandy Aguilar CMA [facility] Start: 01-06-2024 End: 01-06-2024 Phys/qhp telephone evaluation 11-20 min Ishmael Gutierrez PA-C Work Phone: [facility] Orthopedics/Trauma and Adult Reconstruction Comment on above: Closed displaced sup racondylar fracture with intracondylar extension of lower end of left femur with routine healing (Primary Dx); Morbid obesity with BMI of 60.0-69.9, adult ([facility]) Start: 01-06-2024 End: 01-06-2024 ambulatory JAGDISH VASQUEZ [facility] Start: 01-04-2024 End: 01-04-2024 ambulatory IDANIA GUNDERSON [facility] Start: 12-30-2023 End: 12-30-2023 ambulatory ALEKMOY MCGINNIS [facility] Start: 12-29-2023 End: 12-29-2023 Telephone encounter Vanessa Bateman [facility] Neu[facility] Comment on above: New Patient Start: 12-28-2023 End: 12-28-2023 Telephone encounter Domingo Tobias NP Work Phone: [facility] Start: 12-28-2023 End: 12-28-2023 ambulatory MARIE TRIVEDI [facility] Start: 12-27-2023 End: 12-27-2023 Telephone encounter Jeanette Phan APRN-EMBEDDED SYSTEMS SOFTWARE ENGINEER Work Phone: [facility] Start: 12-20-2023 End: 12-20-2023 ambulatory SHALOM PATRICIO [facility] Start: 12-19-2023 End: 12-21-2023 Telephone encounter Maribell Cavanaugh [facility] Neurology Comment on above: Hospital Follow-up Start: 12-18-2023 End: 12-18-2023 Telephone encounter Elle Huff RN [facility] Comment on above: Hypotension New Consult Start: 12-17-2023 End: 12-26-2023 Evaluation and management of inpatient TAMER S TAY TORRES [facility] Start: 12-17-2023 End: 12-18-2023 Emergency department patient visit MEGAN Cristobal SHAKIRA [facility] Start: 12-16-2023 End: 12-17-2023 Emergency department patient visit JULIÁN [facility] Start: 12-16-2023 End: 12-16-2023 ambulatory DOMINGO TOBIAS [facility] Start: 12-16-2023 End: 12-16-2023 External Result Encounter Domingo Tobias MEAT PACKER Work Phone: [facility] Department Unsolicited Start: 12-16-2023 End: 12-16-2023 External Result Encounter Domingo Tobias MEAT PACKER Work Phone: [facility] Unsolicited Start: 12-13-2023 End: 12-13-2023 ambulatory IDANIA GUNDERSON [facility] Start: 11-23-2023 End: 11-23-2023 Postop follow up visit related to original px Grisel Mcginnis PA-C Work Phone: [facility]Tra[facility] Adult Reconstruction Comment on above: Closed fracture of d istal end of left femur with routine healing, unspecified fracture morphology, subsequent encounter (Primary Dx) Start: 11-23-2023 End: 11-23-2023 ambulatory JAGDISH Julio C VASQUEZ [facility] Start: 11-14-2023 End: 11-14-2023 [facility] Start: 11-08-2023 End: 11-08-2023 ambulatory SELINA CARMICHAEL [facility] Start: 11-07-2023 Encounter for preprocedural cardiovascular examination WANDER ARIAS [facility] Start: 11-07-2023 End: 11-11-2023 Evaluation and management of inpatient Wander Arias DO Work Phone: [facility] - GEN 2 ICU Comment on above: Fall (Primary Dx) Start: 11-07-2023 End: 11-08-2023 Emergency department patient visit SELINA CARMICHAEL [facility] Start: 11-07-2023 End: 11-12-2023 Emergency department patient visit JAGDISH Ricketts CAROLYNDerik [facility] Start: 11-01-2023 End: 11-01-2023 ambulatory [facility] Start: 10-27-2023 End: 10-27-2023 ambulatory JULIÁN CONTI [facility] Start: 10-25-2023 End: 10-25-2023 ambulatory [facility] Start: 10-19-2023 End: 10-19-2023 ambulatory [facility] Start: 09-30-2023 End: 09-30-2023 ambulatory [facility] Start: 09-23-2023 End: 09-23-2023 ambulatory [facility] Start: 05-30-2023 Orders Only Sugar Scott RN [facility] Comment on above: Coronary artery dise ase involving [place]inee heart, unspecified vessel or lesion type, unspecified whether angina present (Primary Dx) Dyspnea, unspecified type (Primary Dx); Coronary artery disease involving [place]ominee heart, unspecified vessel or lesion type, unspecified whether angina present Start: 05-06-2023 End: 05-06-2023 Office outpatient new 60 minutes Daniel Jones MD Work Phone: [facility] Card[facility] Comment on above: Pre-op examination ( Primary Dx) Start: 05-06-2023 End: 05-06-2023 Preprocedural examination done Daniel Jones MD Work Phone: [facility] Start: 05-05-2023 Telephone encounter Sandy Aguilar CMA [facility] Card[facility] Start: 03-07-2023 End: 03-07-2023 ambulatory NON STAFF [facility] Work Phone: Start: 03-07-2023 End: 03-07-2023 Departed Referred [facility] [place] Work Phone: Start: 06-18-2022 End: 06-22-2022 Evaluation and management of inpatient Dr. Tracie Martin Facility:[id number] Start: 06-17-2022 End: 06-22-2022 Evaluation and management of inpatient Humberto Lopez [facility] Start: 06-03-2022 End: 06-09-2022 Evaluation and management of inpatient Dr. Tracie Martin Facility:[id number] Start: 06-02-2022 End: 06-09-2022 Evaluation and management of inpatient Shawna Brand [facility] Start: 05-30-2022 End: 06-01-2022 Evaluation and management of inpatient Dr. Tracie Martin Facility:[id number] Start: 05-30-2022 End: 06-01-2022 Evaluation and management of inpatient Zac Zapata [facility] Start: 01-28-2022 End: 01-31-2022 Evaluation and management of inpatient Dr. Tracie Martin Facility:[id number] Start: 12-10-2021 End: 12-12-2021 Evaluation and management of inpatient Wade Roland [facility] Start: 08-28-[address] Tracie Martin Facility:[id number] Start: 06-19-2021 End: 06-19-2021 Emergency department patient visit Hugh Terry [facility] 05 Start: 06-10-2021 End: 06-11-2021 Emergency department patient visit Wilberto Edilma [facility] 03 Start: 05-05-2021 End: 05-06-2021 Emergency department patient visit Benjamin Gonzáles [facility] 03 Start: 01-16-2021 End: 01-16-2021 ambulatory JULIANO LOCKE Facility:H1 Start: 08-23-2020 End: 08-23-2020 ambulatory TENZIN GRANT Facility:H1 Procedures Date Procedure Procedure Detail Performing Clinician Start: 03-07-2024 Follow-up visit Follow-up IDANIA GUNDERSON Start: 01-30-2024 Adult depression scr eening assessment Radha Carmichael Start: 01-20-2024 Follow-up visit Follow-up MAXIMOCHRISSIE Ricketts JOHN Start: 01-06-2024 Follow-up visit Follow-up JAGDISH VASQUEZ Start: 12-17-2023 Adult depression scr eening assessment Elle Huff RN Start: 12-16-2023 Complete blood count with white cell differential, automated Domingo Tobias NP Work Phone: Start: 11-11-2023 Gluc bld gluc mntr d ev cleared fda spec home use Wander Arias DO Work Phone: Start: 11-11-2023 HEMODIALYSIS INPATIENT Martin Fitzgerald MD Work Phone: Start: 11-11-2023 Gluc bld gluc mntr d ev cleared fda spec home use Wander Arias DO Work Phone: Start: 11-11-2023 Blood count hemoglobin Ramiro Aguirre MD Work Phone: Start: 11-11-2023 Blood gases any comb ination ph pco2 po2 co2 hco3 Wander Arias DO Work Phone: Start: 11-11-2023 Gluc bld gluc mntr d ev cleared fda spec home use Wander Arias DO Work Phone: Start: 11-11-2023 Radiologic exam ches t single view Alan Lara MD Work Phone: Start: 11-11-2023 Basic metabolic pane l calcium total Jagdish Hooper PILE DRIVER OPERATOR [employer] SOFTWARE ENGINEER Work Phone: Start: 11-10-2023 VENTILATION Wander rodas DO Work Phone: Start: 11-10-2023 HEMODIALYSIS INPATIENT Calin Randall MD Work Phone: Start: 11-10-2023 VENTILATION Wander rodas DO Work Phone: Start: 11-10-2023 End: 11-10-2023 Basic metabolic panel calcium total Jagdish Hooper PILE DRIVER OPERATOR [employer] SOFTWARE ENGINEER Work Phone: Start: 11-10-2023 VENTILATION Wander rodas DO Work Phone: Start: 11-10-2023 Dup-scan xtr veins c omplete bilateral study Yolette Remy PA-C Work Phone: Start: 11-10-2023 Radiologic exam swal low function contrast study Marie Quick MD Work Phone: Start: 11-10-2023 VENTILATION Wander rodas DO Work Phone: Start: 11-10-2023 Blood gases any comb ination ph pco2 po2 co2 hco3 Wander Arias DO Work Phone: Start: 11-10-2023 Radiologic exam ches t single view Marie Quick MD Work Phone: Start: 11-10-2023 VENTILATION Wander rodas DO Work Phone: Start: 11-10-2023 VENTILATION Wander rodas DO Work Phone: Start: 11-09-2023 Gluc bld gluc mntr d ev cleared fda spec home use Wander Arias DO Work Phone: Start: 11-09-2023 VENTILATION Wander rodas DO Work Phone: Start: 11-09-2023 Gluc bld gluc mntr d ev cleared fda spec home use Wander Arias DO Work Phone: Start: 11-09-2023 VENTILATION Wander rodas DO Work Phone: Start: 11-09-2023 HEMODIALYSIS INPATIENT Calin Randall MD Work Phone: Start: 11-09-2023 VENTILATION Wander rodas DO Work Phone: Start: 11-09-2023 Gluc bld gluc mntr d ev cleared fda spec home use Wander Arias DO Work Phone: Start: 11-09-2023 Blood count hematocrit Marie Quick MD Work Phone: Start: 11-09-2023 VENTILATION Wander rodas DO Work Phone: Start: 11-09-2023 Gluc bld gluc mntr d ev cleared fda spec home use Wander Arias DO Work Phone: Start: 11-09-2023 Blood gases any comb ination ph pco2 po2 co2 hco3 Wander Arias DO Work Phone: Start: 11-09-2023 VENTILATION Wander rodas DO Work Phone: Start: 11-09-2023 End: 11-09-2023 Radiologic examination knee 1/2 views Ishmael Gutierrez PA-C Work Phone: Start: 11-09-2023 Radiologic exam ches t single view Vicenta Wei MD Work Phone: Start: 11-09-2023 Basic metabolic pane l calcium total Jagdish Hooper PILE DRIVER OPERATOR [employer] SOFTWARE ENGINEER Work Phone: Start: 11-09-2023 VENTILATION Wander rodas DO Work Phone: Start: 11-08-2023 Gluc bld gluc mntr d ev cleared fda spec home use Wander Arias DO Work Phone: Start: 11-08-2023 VENTILATION Wander rodas DO Work Phone: Start: 11-08-2023 Blood gases any comb ination ph pco2 po2 co2 hco3 Wander Arias DO Work Phone: Start: 11-08-2023 End: 11-08-2023 Basic metabolic panel calcium total Marie Lloyd MD Work Phone: Start: 11-08-2023 Radiologic examinati on femur minimum 2 views Jagdish Vasquez MD Work Phone: Start: 11-08-2023 VENTILATION Wander rodas DO Work Phone: Start: 11-08-2023 End: 11-08-2023 OPEN REDUCTION INTERNAL FIXATION FEMUR Jagdish Vasquez MD Work Phone: Start: 11-08-2023 VENTILATION Wander rodas DO Work Phone: Start: 11-08-2023 Gluc bld gluc mntr d ev cleared fda spec home use Wander Arias DO Work Phone: Start: 11-08-2023 VENTILATION Wander rodas DO Work Phone: Start: 11-08-2023 Gluc bld gluc mntr d ev cleared fda spec home use Wander Arias DO Work Phone: Start: 11-08-2023 Blood gases any comb ination ph pco2 po2 co2 hco3 Wander Arias DO Work Phone: Start: 11-08-2023 Radiologic exam abdo men 1 view Qamar Kim MD Work Phone: Start: 11-08-2023 RESP ARTERIAL LINE SETUP Jelena Santana MD Work Phone: Start: 11-08-2023 VENTILATION Wander rodas DO Work Phone: Start: 11-08-2023 Basic metabolic pane l calcium total Jagdish Liliam Hooper PILE DRIVER OPERATOR [employer] SOFTWARE ENGINEER Work Phone: Start: 11-08-2023 VENTILATION Wander rodas DO Work Phone: Start: 11-07-2023 Gluc bld gluc mntr d ev cleared fda spec home use Wander Arias DO Work Phone: Start: 11-07-2023 HEMODIALYSIS INPATIENT Sirisha Díaz MD Work Phone: Start: 11-07-2023 VENTILATION Wander rodas DO Work Phone: Start: 11-07-2023 Comprehensive metabo lic panel Marie Quick MD Work Phone: Start: 11-07-2023 Hepatitis b surf ant ibody hbsab Sirisha Díaz MD Work Phone: Start: 11-07-2023 Iaad ia hepatitis b surface antigen Sirisha Díaz MD Work Phone: Start: 11-07-2023 Radiologic exam abdo men 1 view Marie Quick MD Work Phone: Start: 11-07-2023 Radiologic exam ches t single view Vicenta Wei MD Work Phone: Start: 11-07-2023 Antibody screen Wander Arias DO Work Phone: Start: 11-07-2023 Ct lower extremity w /o contrast material Tj Ferrell PA Work Phone: Start: 11-07-2023 RESPIRATORY CARE CONSULT Jagdish Hooper PILE DRIVER OPERATOR [employer] SOFTWARE ENGINEER Work Phone: Start: 11-07-2023 Ct abdomen & pelvis w/o contrast material Jagdish Hooper PILE DRIVER OPERATOR [employer] SOFTWARE ENGINEER Work Phone: Start: 11-07-2023 Ct thorax w/o contra st material Jagdish Hooper PILE DRIVER OPERATOR [employer] SOFTWARE ENGINEER Work Phone: Start: 11-07-2023 End: 11-07-2023 VENTILATION Wander Ricketts O Work Phone: Start: 11-07-2023 Comprehensive metabo lic panel Jagdish Hooper PILE DRIVER OPERATOR [employer] SOFTWARE ENGINEER Work Phone: Start: 11-07-2023 Ethanol [Mass/volume ] in Serum or Plasma Jagdish Hooper PILE DRIVER OPERATOR [employer] SOFTWARE ENGINEER Work Phone: Start: 11-07-2023 Blood typing serologic abo Jagdish Hooper PILE DRIVER OPERATOR [employer] SOFTWARE ENGINEER Work Phone: Start: 11-07-2023 REPEATED ABORH Jagdish Hooper PILE DRIVER OPERATOR [employer] SOFTWARE ENGINEER Work Phone: Start: 11-07-2023 Adult depression scr eening assessment Grisel Mcginnis PA-C Work Phone: Start: 05-06-2023 Ecg routine ecg w/le ast 12 lds w/i&r Daniel Jones MD Work Phone: Start: 06-17-2022 End: 06-17-2022 Arterial Full Panel -Next Draw Jomar Wilson Start: 06-03-[address] Subha Martin Start: 06-03-2022 End: 06-03-2022 Arterial Full Panel -Stat Mala Josédarius Start: 06-02-2022 End: 06-02-2022 Arterial Full Panel -Next Draw Leticia Donya Start: 05-30-2022 End: 05-30-2022 Arterial Full Panel -Next Draw Maxwell George Start: 05-30-[address] Hafsa Martin Comment on above: Performed By: #### T +S ####[facility] [place] [address] Start: 05-30-2022 End: 05-30-2022 EKG impression Bianca Martin Start: 12-10-2021 End: 12-10-2021 EKG impression Santos Parekh Start: 06-10-2021 End: 06-10-2021 EKG impression Ratna Jacob Start: 06-10-2021 End: 06-10-2021 Arterial Full Panel -Stat Ratna Jacob Start: 05-05-2021 End: 05-05-2021 EKG impression Suzan Ford Plan of Treatment Date Care Activity Detail Author Start: 08-31-2025 Adult BMI Screening Adult BMI Screening [facility] Start: 08-31-2025 Tobacco Screening Tobacco Screening [facility] Start: 05-11-2025 Tobacco Screening Tobacco Screening [facility] Start: 05-09-2025 Adult BMI Screening Adult BMI Screening [facility] Start: 04-27-2025 Adult BMI Screening Adult BMI Screening [facility] Start: 04-27-2025 Tobacco Screening Tobacco Screening [facility] Start: 04-18-2025 Adult BMI Screening Adult BMI Screening [facility] Start: 04-18-2025 Tobacco Screening Tobacco Screening [facility] Start: 02-01-2025 Adult BMI Screening Adult BMI Screening [facility] Start: 01-30-2025 Tobacco Screening Tobacco Screening [facility] Start: 01-29-2025 Adult BMI Screening Adult BMI Screening [facility] Start: 01-29-2025 Depression Screening Depression Screening [facility] Start: 01-29-2025 Tobacco Screening Tobacco Screening [facility] Start: 01-28-2025 Tobacco Screening Tobacco Screening [facility] Start: 01-19-2025 Adult BMI Screening Adult BMI Screening [facility] Start: 01-19-2025 Tobacco Screening Tobacco Screening [facility] Start: 01-05-2025 Tobacco Screening Tobacco Screening [facility] Start: 12-25-2024 Adult BMI Screening Adult BMI Screening [facility] Start: 12-20-2024 Tobacco Screening Tobacco Screening [facility] Start: 12-19-2024 Adult BMI Follow Up Plan Adult BMI Follow Up Plan [facility] Start: 12-19-2024 Adult BMI Screening Adult BMI Screening [facility] Start: 12-17-2024 Adult BMI Screening Adult BMI Screening [facility] Start: 12-16-2024 Depression Screening Depression Screening [facility] Start: 12-16-2024 Tobacco Screening Tobacco Screening [facility] Start: 12-10-2024 Influenza vaccination [facility] Start: 11-22-2024 Adult BMI Screening Adult BMI Screening [facility] Start: 11-22-2024 Tobacco Screening Tobacco Screening [facility] Start: 11-06-2024 Depression Screening Depression Screening [facility] Start: 09-20-2024 End: 09-20-2024 Admission to same day surgery center 09/20/2024 10:00 AM EDT - 09/20/2024 11:00 AM EDT Surgery [facility] [address] [place] [phone] Margarito Petersen MD [address] [facility] [address] [facility] [place] [phone] ESOPHAGOGASTRODUODENOSCOPY DIAGNOSTIC [44845 (CPT )] [facility] Comment on above: ESOPHAGOGASTRODUODENOSCOPY DIAGNOSTIC [4 4045 (CPT )] Start: 09-20-2024 End: 09-20-2024 Colonoscopy COLONOSCOPY DIAGNOSTIC / SCREENING ACUTE ONCHRONIC ANEMIA 09/20/2024 10:00 AM EDT [facility] Start: 09-20-2024 End: 09-20-2024 Esophagogastroduodenoscopy transoral diagnostic ESOPHAGOGASTRODUODENOSCOPY DIAGNOSTIC ACUTE ONCHRONIC ANEMIA 09/20/2024 10:00 AM EDT [facility] Start: 09-20-2024 Subsequent hospital visit by physician 09/20/2024 10:00 AM EDT Hospital Encounter [facility] [address] [place] [phone] Margarito Petersen MD [address] [facility] [place] [address] [facility] Start: 09-13-2024 End: 09-13-2024 Admission to establishment 09/13/2024 9:30 AM EDT [facility] [address] [address] [facility] Start: 09-11-2024 End: 09-11-2024 Patient encounter procedure 09/11/2024 2:00 PM EDT Off ice Visit [facility] [address] [place] [address] Stefan Linda MD [address] [place] [address] [facility] Start: 08-21-2024 End: 08-21-2024 Admission to same day surgery center 08/21/2024 10:00 AM EDT - 08/21/2024 11:15 AM EDT Surgery [facility] [address] [place] [phone] Mary Jo Danielle MD [address] [place] [address] COLONOSCOPY DIAGNOSTIC / SCREENING [77854 (CPT )] [facility] Comment on above: COLONOSCOPY DIAGNOSTIC / SCREENING [4537 8 (CPT )] Start: 08-21-2024 End: 08-21-2024 Colonoscopy flx dx w/collj spec when pfrmd COLONOSCOPY DIAGNOSTIC / SCREENING ACUTE ONCHRONIC ANEMIA 08/21/2024 10:00 AM EDT [facility] Start: 08-21-2024 End: 08-21-2024 Esophagogastroduodenoscopy transoral diagnostic ESOPHAGOGASTRODUODENOSCOPY DIAGNOSTIC ACUTE ONCHRONIC ANEMIA 08/21/2024 10:00 AM EDT [facility] Start: 08-21-2024 Subsequent hospital visit by physician 08/21/2024 10:00 AM EDT Hospital Encounter [facility] [address] [place] [phone] Mary Jo Danielle MD [address] [place] [address] [facility] Start: 05-25-2024 End: 05-25-2024 Patient encounter procedure 05/25/2024 2:30 PM EST Off ice Visit [facility] [address] [place] [address] Jeanette Phan, PILE DRIVER OPERATOR [employer] SOFTWARE ENGINEER [address] [place] [phone] [facility] Start: 05-23-2024 Adult BMI Screening Adult BMI Screening [facility] Start: 05-23-2024 Tobacco Screening Tobacco Screening [facility] Start: 05-15-2024 End: 05-15-2024 Admission to same day surgery center 05/15/2024 8:30 AM EST - 05/15/2024 9:30 AM EST Surgery [facility] [address] [place] [phone] Mary Jo Danielle MD [address] [place] [address] COLONOSCOPY BIOPSY [67019 (CPT )] [facility] Comment on above: COLONOSCOPY BIOPSY [44577 (CPT )] Start: 05-15-2024 End: 05-15-2024 Colonoscopy w/biopsy single/multiple [facility] Start: 05-15-2024 Subsequent hospital visit by physician 05/15/2024 8:30 AM EST Hospital Encounter [facility] Endoscopy [address] [place] [phone] Mary Jo Danielle MD [address] [facility] [place] [address] [facility] Start: 05-11-2024 End: 05-11-2024 Telemedicine consultation with patient 05/11/2024 11:00 AM EST Telemedicine [facility]/Trauma [facility] Adult Reconstruction [address] [phone] Jagdish Vasquez MD [address] [place] [address] [facility]/Traum a and Adult Reconstruction Start: 05-08-2024 End: 05-08-2024 Admission to establishment 05/08/2024 9:30 AM EST [facility] On [address] [address] [facility] On [facility] Start: 05-06-2024 Adult BMI Screening Adult BMI Screening [facility] Start: 05-06-2024 Tobacco Screening Tobacco Screening [facility] Start: 05-04-2024 End: 05-04-2024 Patient encounter procedure 05/04/2024 2:15 PM EST Off ice Visit [facility] [address] [place] [phone] Shanna Mckeon MD 2130 [facility] [address] [place] [address] [facility] Start: 04-27-2024 End: 04-27-2024 Admission to same day surgery center 04/27/2024 11:30 AM EST - 04/27/2024 12:30 PM EST Surgery [facility] [address] [place] [address] Maximo Moscoso MD [address] [id number] BRONCHOSCOPY [85507 (CPT )] [facility] Comment on above: BRONCHOSCOPY [32029 (CPT )] Start: 04-27-2024 End: 04-27-2024 Brnchsc incl fluor gdnce dx w/cell washg spx BRONCHOSCOPY LEFT LUNG COLLAPSE 04/27/2024 11:30 AM EST [facility] Start: 04-27-2024 Subsequent hospital visit by physician 04/27/2024 11:30 AM EST Hospital Encounter [facility] [address] [place] [address] Maximo Moscoso MD [address] [id number] [facility] Start: 03-22-2024 Tobacco Screening Tobacco Screening [facility] Start: 02-24-2024 End: 02-24-2024 Patient encounter procedure 02/24/2024 9:15 AM EST Off ice Visit [facility] [address] [place] [phone] Shanna Mckeon MD [address] [phone] [facility] Start: 02-22-2024 End: 02-21-2025 RFA Guidance for repair of CV catheter without port or pump of Vein IR Tunneled dialysis/central line more than 5 years Imaging Routine End stage renal disease (CMS-HCC) Expected: 02/22/2024, Expires: 02/21/2025 [facility] Work Phone: Comment on above: Expected: 02/22/2024, Expires: Start: 02-22-2024 End: 02-22-2024 Patient encounter procedure 02/22/2024 1:00 PM EST Appointment [facility] Interventional Radiology [address] [place] [phone] Moose Lewis MD [address], [address] [place] [phone] [facility] Start: 02-03-2024 End: 02-03-2024 Telemedicine consultation with patient 02/03/2024 11:00 AM EDT Telemedicine [facility] [address] [place] [phone] Jagdish Vasquez MD [address] [place] [address] [facility] Adult [facility] Start: 01-24-2024 End: 01-24-2024 Patient encounter procedure 01/24/2024 11:30 AM EDT Office Visit [facility] [address] [place] [phone] Jeanette Phan, PILE DRIVER OPERATOR [employer] SOFTWARE ENGINEER [address] [place] [phone] [facility] Start: 01-20-2024 Subsequent hospital visit by physician 01/20/2024 2:44 PM EDT Hospital Encounter [facility] [address] [place] [address] PMB (postmenopausal bleeding); Pelvic pain [facility] Comment on above: PMB (postmenopausal bleeding); Pelvic pain Start: 01-20-2024 End: 01-20-2024 Patient encounter procedure [facility] Card[facility] Start: 01-13-2024 End: 01-13-2024 Patient encounter procedure 01/13/2024 3:30 PM EDT Appointment [facility] - [facility] Imaging [address] [place] [address] [facility] - [facility] Imaging Start: 01-06-2024 End: 01-05-2025 XR Femur - left 2 Views X-ray femur left 2+ views Imaging Routine Closed displaced supracondylar fracture with intracondylar extension of lower end of left femur with routine healing Expected: 01/06/2024, Expires: 01/05/2025 [facility] Comment on above: Expected: 01/06/2024, Expires: Start: 01-06-2024 End: 01-05-2025 XR Knee - left 1 or 2 Views X-ray knee left 1 or 2 vie ws Imaging Routine Closed displaced supracondylar fracture with intracondylar extension of lower end of left femur with routine healing Expected: 01/06/2024, Expires: 01/05/2025 [facility] Work Phone: Comment on above: Expected: 01/06/2024, Expires: Start: 01-06-2024 End: 01-06-2024 Telemedicine consultation with patient 01/06/2024 11:15 AM EDT [facility] [address] [place] [phone] Jagdsih Vasquez MD [address] [place] [address] [facility] Adult Re[facility] Start: 12-30-2023 End: 12-30-2023 Patient encounter procedure 12/30/2023 7:00 AM EDT Appointment [facility] - Radiology [address] [place] [address] [facility] - Radiology Start: 12-27-2023 End: 12-26-2024 CT Abdomen and Pelvis WO contrast CT abdomen and pelvis without contrast Imaging Routine PMB (postmenopausal bleeding) Pelvic pain Expected: 12/27/2023, Expires: 12/26/2024 [facility] Work Phone: Comment on above: Expected: 12/27/2023, Expires: 5 Start: 12-21-2023 End: 12-21-2023 Hysteroscopy bx endometrium&/polypc w/wo d&c HYSTEROSCOPY DILATION CURETTAGE abnormal uterine bleeding 12/21/2023 1:48 PM EDT [facility] Start: 12-21-2023 End: 12-21-2023 Insertion intrauterine device iud INSERTION INTRAUTERINE DEVICE abnormal uterine bleeding 12/21/2023 1:48 PM EDT [facility] Start: 12-11-2023 COVID-19 Vaccine ( season) COVID-19 Vaccine ( season) [facility] Start: 12-11-2023 COVID-19 Vaccine ( season) COVID-19 Vaccine ( season) [facility] Start: 12-11-2023 Influenza vaccination [facility] Start: 11-23-2023 End: 11-22-2024 XR Femur - left 2 Views X-ray femur left 2+ views Imaging Routine Closed fracture of distal end of left femur with routine healing, unspecified fracture morphology, subsequent encounter Expected: 11/23/2023, Expires: 11/22/2024 [facility] Work Phone: Comment on above: Expected: 11/23/2023, Expires: 5 Start: 11-23-2023 End: 11-23-2023 Patient encounter procedure 11/23/2023 12:45 PM EDT Office Visit [facility] Adult Re[facility] [address] [place] [address] Jagdish Vasquez MD [address] [place] [address] [facility] Start: 11-12-2023 Adult BMI Screening Adult BMI Screening [facility] Start: 06-01-2023 End: 05-30-2024 Echo stress dobutamine W/contrast Echo stress dobutamine W/contrast Cardiac Services Routine Dyspnea, unspecified type Coronary artery disease involving menominee heart, unspecified vessel or lesion type, unspecified whether angina present Expected: 06/01/2023 (Approximate), Expires: 05/30/2024 [facility] Work Phone: Comment on above: Expected: 06/01/2023 (Approximate), Expi res: 05/30/2024 Start: 05-31-2023 End: 05-31-2023 Patient encounter procedure 05/31/2023 9:00 AM EST Off ice Visit [facility] [address] [place] [phone] Nicki Grove MD [address] [place] [place] [address] [facility]neco [facility]y Start: 05-25-2023 End: 05-25-2023 Patient encounter procedure [facility] Start: 05-24-2023 End: 05-24-2023 Patient encounter procedure 05/24/2023 10:30 AM EST Office Visit [facility]necology [address] [place] [phone] Nayeli Hope DO [address] [place] [address] [facility] Start: 05-23-2023 End: 05-23-2023 Patient encounter procedure [facility] Start: 05-17-2023 End: 05-17-2023 Telemedicine consultation with patient 05/17/2023 10:00 AM EST Telemedicine [facility]ious Disease [address] [address] Margarita Duran, PILE DRIVER OPERATOR [employer] SOFTWARE ENGINEER [address] [facility], [address] [place] [address] [facility] Start: 05-06-2023 End: 05-06-2024 NM Heart Perfusion W stress and W radionuclide IV Nuc stress Lexiscan Cardiac Services Routine Pre-op examination Expected: 05/06/2023, Expires: 05/06/2024 [facility] Work Phone: Comment on above: Expected: 05/06/2023, Expires: Start: 05-06-2023 End: 05-06-2023 Patient encounter procedure 05/06/2023 10:30 AM EST Office Visit [facility] [address] [place] [address] Daniel Jones MD [address] [place] [address] [facility] Start: 12-10-2022 COVID-19 Vaccine ( season) COVID-19 Vaccine ( season) [facility] Start: 12-10-2022 Influenza vaccination Influenza Vaccine [facility] Start: 05-30-2022 End: 05-31-2023 Epoetin Linda (ESRD) Injectable SubCutaneous Tue ; DOSE = 10,000 unit(s) SubCutaneous With Every Dialysis TreatmentNotes from Pharmacy: [facility] Start: 30-May-2022 End: 30-May-2023 Ordered: 30-May-2022 Mykel Chatman Intent [facility] Start: 05-30-2022 End: 05-31-2023 [facility] Comment on above: IF patient HAS a secure IV access & is U nconscious, Conscious, NPO or Unable to Eat or Drink. Repeat until BG reaches 100 mg/dL or greater. Push 2-3 mL/minute. Discontinue Once BG reaches 100 mg/dL or greater. IF patient DOES NOT have secure IV access & is Unconscious, Conscious, NPO or Unable to Eat or Drink. Repeat until BG reaches 100 mg/dL or greater. Discontinue Once BG reaches 100 mg/dL or greater. Start: 2017 Administration of varicella zoster vaccine Zoster (Shingles) Vaccine (1 of 2) [facility] Start: 2007 Screening for malignant neoplasm of breast Mammogram [facility] Start: 1997 Screening for malignant neoplasm of cervix [facility] Start: 02-16-1988 Screening for malignant neoplasm of cervix Pap Smear [facility] Start: 1986 DTaP,Tdap and Td Vaccines (1 - Tdap) DTaP,Tdap and Td Vaccines (1 - Tdap) [facility] Start: 1986 Urine screening for protein Diabetes: Urine Protein Screening [facility] Start: 1985 Adult BMI Follow Up Plan Adult BMI Follow Up Plan [facility] Start: 1985 Diabetic foot examination Diabetic Foot Exam [facility] Start: 1979 Depression Screening Depression Screening [facility] Start: 1977 Glaucoma screening Diabetes: Retinopathy Screening [facility] Start: 1967 Glaucoma screening Diabetic Ophthalmology Exam [facility] Start: 1967 Hemoglobin A1c measurement Diabetes: Hemoglobin A1C [facility] Start: 1967 Screening for malignant neoplasm of colon [facility] Start: 1967 Urine screening for protein Urine Microalbumin [facility] Basic metabolic 2000 panel - Serum or Plasma Basic Metabolic Panel Lab Routine Lab max of 3 days, Daily, for lab use only until discontinued starting 11/08/2023, 4 completed [facility] Comment on above: Lab max of 3 days, Daily, for lab use on ly until discontinued starting 11/08/2023, 4 completed Bedside Glucose *Andrea ce/Obtain serum glucose if >500(>600 MRH) per glucometer. Bedside Glucose *Place/Obtain serum glucose if >500(>600 MRH) per glucometer. Point of Care Testing Routine Every 6hr until discontinued starting 11/08/2023, 15 completed [facility] Work Phone: Comment on above: Every 6hr until discontinued starting , 15 completed End: 11-18-2023 CBC W Auto Differential panel - Blood CBC auto differential Lab Routine Lab max of 3 days, Daily, for lab use only for 1 Weeks starting 11/12/2023 until 11/18/2023 [facility] Work Phone: Comment on above: Lab max of 3 days, Daily, for lab use on ly for 1 Weeks starting 11/12/2023 until 11/18/2023 End: 11-07-2023 Drug Screen, Urine Drug Screen, Urine Lab STAT STAT for 1 Occurrences starting 11/07/2023 until 11/07/2023 [facility] Work Phone: Comment on above: STAT for 1 Occurrences starting 11/07/19 until 11/07/2023 End: 05-06-2024 ECG 12 lead ECG 12 lead ECG Routine Pre-op examination 1 Occurrences starting 05/06/2023 until 05/06/2024 [employer] Comment on above: 1 Occurrences starting 05/06/2023 until 05/06/2024 POCT EKG POCT EKG ECG Rou serena Pre-op examination 05/06/2023 [employer] End: 11-07-2023 Urinalysis Urinalysis Lab STAT STAT for 1 Occurrences starting 11/07/2023 until 11/07/2023 [employer] Comment on above: STAT for 1 Occurrences starting 11/07/19 until 11/07/2023 Ventilation - Invasi ve; Pressure Regulated VC / VC plus; AC; 400; 18; 92% or greater; 100; 8; Yes; [email or web address]\[email or web address]\EPI C_Reference\Orders\Respirator y Care Guidelines\CPG Mechanical Vent and NIV - 2022.pdf; No Ventilation - Invasive; Pressure Regulated VC / VC plus; AC; 400; 18; 92% or greater; 100; 8; Yes; \[email or web address]\[email or web address]\EPI C_Reference\Orders\Respirator y Care Guidelines\CPG Mechanical Vent and NIV - 2022.pdf; No Respiratory Care Routine Every 4 hour check until discontinued starting 11/07/2023, 26 completed [facility] Work Phone: Comment on above: Every 4 hour check until discontinued st arting 11/07/2023, 26 completed Payers Date Payer Category Payer Self-pay [id number] 2020 Medicaid [id number] 1967 Unknown [id number] 2.16.84 0.1.234114.3.579.2.593 1967 Unknown [id number] 2.16.84 0.1.892487.3.579.2.593 1967 Unknown [id number] 2.16.840.1.711287.3.579.2.356 1967 Unknown [id number] 2.16.840.1.743325.3.579.2.1069 1967 Unknown [id number] 2.16.840.1.471293.3.579.2.9 1967 Unknown [id number] 2.16.840.1.166510.3.579.2.1069 1967 Unknown [id number] 2.16.840.1.574154.3.579.2.9 1967 Unknown [id number] 2.16.840.1.560941.3.579.2.1069 1967 Unknown [id number] 2.16.840.1.190194.3.579.2.1286 1967 Unknown [id number] 2.16.840.1.903809.3.579.2.1286 1967 Unknown [id number] 2.16.840.1.601586.3.579.2.1285 1967 Unknown [id number] 2.16.840.1.702795.3.579.2.1286 1967 Unknown [id number] 2.16.840.1.358373.3.579.2.1286 1967 Unknown [id number] 2.16.840.1.627036.3.579.2.1285 1967 Unknown [id number] 2.16.840.1.856023.3.579.2.1285 1967 Unknown [id number] 2.16.840.1.438485.3.579.2.1285 1967 Unknown [id number] 2.16.840.1.128437.3.579.2.1285 1967 Unknown [id number] 2.16.840.1.819274.3.579.2.1285 1967 Unknown [id number] 2.16.840.1.349266.3.579.2.1285 1967 Unknown [id number] 2.16.840.1.877439.3.579.2.1285 1967 Unknown [id number] 2.16840.1.758043.3.579.2.1285 1967 Unknown [id number] 2.16.840.1.324700.3.579.2.1285 1967 Unknown [id number] 2.16.840.1.869887.3.579.2.1285 1967 Unknown [id number] 2.16.840.1.691714.3.579.2.1285 1967 Unknown [id number] 2.16.840.1.401801.3.579.2.1285 1967 Unknown [id number] 2.16.840.1.072658.3.579.2.1285 1967 Unknown [id number] 2.16.840.1.310067.3.579.2.1285 1967 Unknown [id number] 2.16.840.1.679938.3.579.2.1285 1967 Unknown [id number] 2.16.840.1.911530.3.579.2.1285 1967 Unknown [id number] 2.16.840.1.666130.3.579.2.1285 1967 Unknown [id number] 2.16.840.1.451441.3.579.2.1285 1967 Unknown [id number] 2.16.840.1.621468.3.579.2.1285 1967 Unknown [id number] 2.16.840.1.045755.3.579.2.1285 1967 Unknown [id number] 2.16.840.1.650726.3.579.2.1285 1967 Unknown [id number] 2.16.840.1.935280.3.579.2.1285 1967 Unknown [id number] 2.16.840.1.620544.3.579.2.1285 1967 Unknown [id number] 2.16.840.1.036015.3.579.2.1285 1967 Unknown [id number] 2.16.840.1.140932.3.579.2.1285 1967 Unknown [id number] 2.16.840.1.470182.3.579.2.1285 1967 Unknown [id number] 2.16.840.1.233871.3.579.2.1285 1967 Unknown [id number] 2.16.840.1.343012.3.579.2.1285 1967 Unknown [id number] 2.16.840.1.767819.3.579.2.1285 1967 Unknown [id number] 2.16.840.1.260810.3.579.2.1285 1967 Unknown [id number] 2.16.840.1.561031.3.579.2.1285 1967 Unknown [id number] 2.16.840.1.988492.3.579.2.1286 1967 Unknown [id number] 2.16.840.1.678767.3.579.2.1286 1967 Unknown [id number] 2.16.840.1.970271.3.579.2.1286 1967 Unknown [id number] 2.16.840.1.026188.3.579.2.1286 1967 Unknown [id number] 2.16.840.1.627988.3.579.2.1286 1967 Unknown [id number] 2.16.840.1.564442.3.579.2.1286 1967 Unknown [id number] 2.16.840.1.358822.3.579.2.1286 1967 Unknown [id number] 2.16.840.1.828049.3.579.2.1286 1957 Medicaid [id number] Medicaid Medicaid Out of State [id number] Unknown MEDICAID\MEDICAID Unknown [id number] 2.16.840.1.241228.3.579.2.531 Social History Date [place] [facility] [place] smoking consumption unknown [facility] Start: 03-26-2021 End: 05-06-2023 Tobacco smoking status NHIS Never smoked tobacco (finding) [facility] Start: 1965 Sex Assigned At Female F [facility] Start: 1967 Sex assigned at Not on file [facility] [employer] [facility] Start: 07-10-2020 End: 01-30-2024 Gender identity Not on file [facility] Start: 08-03-2020 End: 05-06-2023 Tobacco use and exposure Smokeless tobacco non-user [facility] Start: 04-25-2024 End: 08-31-2024 Alcoholic beverage intake Ex-drinker (finding) [facility] Start: 07-10-2020 End: 01-30-2024 History of Social function [facility] Has the electric, [employer], [employer], or water company threatened to shut off services in your home in past 12Mo No [facility] How often to you hav e a drink containing alcohol? Never [facility] How many standard drinks containing alcohol do you have on a typical day? Patient does not drink [facility] Start: 07-10-2020 Sex Female (finding) [facility] How often to you hav e a drink containing alcohol? Monthly or less [facility] How many standard drinks containing alcohol do you have on a typical day? 1 or 2 [facility] Medical Equipment Procedure Code Equipment Code Equipment Origin al Text Equipment Identifier Dates Fluoroscopic guidance for insertion of tunnelled dialysis catheter Double-lumen haemodialysis catheter, implantable [id number] FDA Start: 03-26-2021 Incv/Iud Liletta 52mg W/Sgl-Hnd Insrtr Mfr Dc Use Special [id number] - [id number] Start: 12-21-2023 Kit Pcng 45cm Palindrome Slvr Anmc Slv 28cm - [id number] FDA Start: 01-31-2024 Plate Bn 230mm C rv 10 Hl Va Lcp Cmbn Cndrl Lt Ss 4.5mm Scr - [id number] Start: 11-08-2023 Screw Bn 36mm 5m m St Va Lck Strdr Ss Lcp Ns - [id number] Start: 11-08-2023 Screw Bn 40mm 5m m [address] Lck Va Strdr Ss T25 Ns Crv Cndrl Plt Sy - [id number] Start: 11-08-2023 Screw Bn 42mm [address]m [address] Lck Va Strdr Ss T25 Ns Crv Cndrl Plt - [id number] Start: 11-08-2023 Screw Bn 44mm [address]m [address] Lck Va Strdr Ss T25 Ns Crv Cndrl Plt Sy - [id number] Start: 11-08-2023 Screw Bn 70mm 5m m [facility] Va Lck Strdr - [id number] Start: 11-08-2023 Screw Bn 75mm [address]m m [address] Va Lck Strdr - [id number] Start: 11-08-2023 Screw Bn 80mm 5m m [address] Lck Va Strdr Ss T25 Ns Crv Cndrl Plt Sy - [id number] Start: 11-08-2023 Screw Bn 36mm 4. 5mm [address] Lg Hex Sckt Alex Ss 3.5mm Ns Lg Frag Rpl Special [id number] - [id number] Start: 11-08-2023 Goals Date Patient Goal Desired Activity /State Personal health goal Comment on above: Formatting of this n ote might be different from the original. Evaluation of progress towards goal: Patient plans to return to [place] in [place] Personal health goal Comment on above: Formatting of this n ote might be different from the original. Evaluation of progress towards goal: Safe transition back to [place] in [facility]. - TONNY Duval 01/30/24 8:35 AM ' Personal health goal Comment on above: Formatting of this n ote might be different from the original. Evaluation of progress towards goal: Safe transition back to [place]. - TONNY Duval 11/08/22 10:07 AM Personal health goal Personal health goal Functional Status Date Assessment Result Facility Functional observable [facility] Mental Status Date Assessment Result Facility 06-21-2022 Cognitive functions 26557:56 [facility] 06-09-2022 Cognitive functions 10-Jun-19 239:33 [facility] 05-31-2022 Cognitive functions 83396:59 [facility] 12-11-2021 Cognitive functions 12-Dec-19 2212:16 [facility] Clinical Notes 12-11-2021 to 09-24-2024 Telephone Encounter - Domingo Tobias NP - 09/24/2024 12:03 AM EDTTelephone Encounter - Domingo Tobias NP - 09/24/2024 12:03 AM EDTPre-Procedure Instructions - Rosalee Claros RN - 09/13/2024 9:30 AM EDT Note Date & Type Note Facility 09-24-2024 Telephone encounter Note Requested Prescriptions Signed Prescriptions Disp Refills oxyCODONE (Roxicodone) 5 MG immediate release tablet 120 tablet 0 Sig: Take 1 tablet (5 mg) by mouth every 6 (six) hours if needed for severe pain Authorizing Provider: DOMINGO TOBIAS [facility] 09-24-2024 Miscellaneous Notes Requested Prescriptions Signed Prescriptions Disp Refills oxyCODONE (Roxicodone) 5 MG immediate release tablet 120 tablet 0 Sig: Take 1 tablet (5 mg) by mouth every 6 (six) hours if needed for severe pain Authorizing Provider: DOMINGO TOBIAS documented in this encounter [facility] 09-19-2024 Note Asmita from [facility] called regarding patients EGD/CLN scheduled for 09/19/24, patient is refusing procedures, does not want to do the prep. Procedures at [facility] have been cancelled. [facility] 09-13-2024 Instructions Formatting of th is note might be different from the original. Your surgery/procedure is scheduled at [facility] on 09/20/2024 at 1000 am Arrival Time 800 am [facility] Address: [address] [place] [address] in P1 Parking lot located on [facility]. Report to the Entrance B. Check in at the information desk the surgery. The waiting room located on the second floor. If you have any questions prior to surgery, please call Pre-Admission Clinic at [phone] between 7:30 am and 4:30 pm Tuesday through Tuesday. If you have questions the morning of surgery, please call the Pre-op Department at [phone]. Notify your SURGEON if you develop any illness such as a cold, cough, fever, sore throat, vomiting or are hospitalized between now and your surgery. Medication Instructions (Do not stop your medications without consulting the prescribing physician). Take the following medications the morning of surgery with a sip of water: xanax if needed, levetiracetam, levothyroxine, midodrine, breathing treatments Diabetic or Weight loss medications: HOLD n/a LAST DOSE n/a Take inhalers as prescribed the morning of surgery. Due to the risk associated with these medications. If these medications are not held per instruction below, your surgery is at an increased risk for cancellation. SGLT2 Medications- Hold 3 days prior to surgery: Jardiance, Empagliflozin, Farxiga, Dapagliflozin, Invokana, Canagliflozin, Trijardy, Synjardy GLP-1 Medications (Injection or Pill)- If taken daily hold day of surgery. If taken weekly, hold 1 week prior to surgery: Adlyxin, Byetta, Bydureon, Ozempic, Rybelsus,Trulicity, Victoza, Wegovy, Lixisenatide, Exenatide, Semaglutide, Dulaglutide, Liraglutide GIP/GLP-1(Injection or Pill)- If taken daily hold day of surgery. If taken weekly, hold 1 week prior to surgery: Israelunjaro . Blood thinners: Please contact your prescribing physician regarding a stop/hold date for these medications. Medications such as Coumadin, Heparin, Aspirin, Plavix, Eliquis, Pradaxa Diabetics: If you take insulin, contact your prescribing doctor for instructions on how to manage this the night before and the morning of surgery. Non-steriodal Anti-Inflammatory Drugs (NSAIDS)- Hold 3 days prior to surgery unless otherwise directed by your surgeon. Vitamins/Herbal Products: You may continue to take your prescribed vitamins such as potassium, iron, vitamin B, vitamin C, or multivitamin unless specifically instructed by your surgeon to hold. STOP taking all herbal products/teas one week prior to your surgery. Marijuana: Stop marijuana 72 hours prior to surgery, stop CBD oil 48 hours prior to surgery. If you have been given bowel prep instructions by your surgeon, please call the surgeon's office with any questions about these instructions. What do I do the day of Surgery? Age 2 through adult - Stop all solids by midnight, You may have clear liquids up to 2 hours before surgery, unless otherwise instructed by your surgeon. Clear liquids are: water, sports drinks such as Gatorade or G2, or apple juice. You may NOT have: tube feedings, dairy products, alcoholic beverages, orange juice, or any liquids with solids or pulp in it. If applicable, shower again with CHG soap the morning of your surgery. In order to help prevent infection post-operatively, you may be asked to use a CHG mouthwash when you arrive to the Pre-op area. Your nurse will provide instruction the morning of. What do I need to do to prepare for surgery? If you will be going home the same day as your surgery, arrange for an adult over [address] Riding in a bus or taxi by yourself is not permitted. You should not smoke or drink alcohol 24 hours before your surgery. Alcohol thins the blood and may cause bleeding problems during surgery. Smoking increases the risk of breathing problems after surgery. Do not use lotions, creams, powders, perfume, make up, cologne or after-shaves day of surgery. Remove ALL jewelry including wedding rings, body piercings (including dermal piercing's, hair extensions that contain metal, nail jordanian, make-up, and contact lens. You may brush your teeth the morning of surgery, but do not swallow the water. Wear your dentures and partial plates to the hospital (no adhesive). Shower the night the before. If applicable, use the CHG (chlorhexidine gluconate) soap or wipes. Place clean linens on your bed after showering. Do not allow pets to sleep in your bed What should I bring to the hospital? Eyeglass or contact lens case If you will be spending the night, please bring personal care items and leave them in the car until you are taken to your room after surgery. Leave ALL valuables at home. If any of these instructions conflict with those you received from the surgeon, please seek clarification from your surgeon's office. DEEP BREATHING EXERCISES This exercise helps promote good air exchange and helps to prevent pneumonia after surgery. Breathe in slowly and deeply through the nose. Hold your breath for a few seconds and then exhale slowly through the mouth. Repeat this three times and then cough.Coughing helps to clear your lungs. If you have had a surgery with an incision into your abdomen or chest, press gently against your incision with a pillow or a folded blanket when you cough. Please be aware - it may not be reynolds to cough following some types of surgeries involving the eyes, ears, sinuses and throat. Always follow your doctor's instructions. LEG EXERCISE These exercises help promote good circulation and help to prevent blood clots after surgery. Point your toes to the ceiling and then point them to the wall. Do this slowly about 15-20 times. You may also move your feet in circles. Do the exercise that is most comfortable for you. If you have had surgery involving your shoulder or arm, we recommend you move your fingers. PRACTICING We ask that you begin practicing these exercises before your surgery. After surgery try to do both exercises at least every 2 hours during the day and early evening. Surgical Site Infection Prevention What is a Surgical Site Infection (SSI)? Infection can happen to the area of the body where surgery is done. This is called a surgical site infection (SSI). A SSI does not happen very often. What are some of the things that hospitals are doing to prevent SSIs? Soap and water or alcohol hand rub are used before and after caring for each patient. Special soap is used to clean surgery workers hands and arms just before the surgery. Masks, gowns, gloves and hair covers are worn during the surgery to keep the area clean. Hair in the surgery area may be removed with clippers (not razors). A special soap that kills germs is used to clean the skin at the surgery site. Antibiotics may be given before the surgery starts. What can you do to prevent SSIs? Before surgery: You may be asked to shower or bathe with a special soap that kills germs the night before and the day of surgery. Use the soap as you were told. Place clean sheets on your bed the night before surgery and do not allow your pets in your bed. If you smoke or vape, stop or cut down. This creates a stress response in your body that increases inflammation, constricts blood vessels and deprives your tissues of oxygen. After surgery, this stress response disrupts the travel of oxygen, nutrients, and blood to your surgical site, interfering with the wound healing process. It also decreases the ability of your cells to fight infection. Ask your doctor about ways to quit. If you have high blood sugars or diabetes please talk with your doctor about having healthy blood sugar levels to promote healing. Do not shave near where you will have surgery. Shaving can irritate the skin and make it easier to get and infection. After surgery: Be sure that the doctors and nurses clean their hands before and after touching you. Be sure your family and friends clean their hands before and after visiting you. Do not be afraid to remind them. Always wash your hands before touching your incisional area. * Care for your wound at home as told by your doctor or nurse * Call your doctor right away if you have fever, redness, increased pain, or drainage at the surgery site. Can SSIs be treated? Antibiotics are used to treat SSI. Some patients may need another surgery to treat the infection. The doctor will discuss treatment options with you. Further questions? Contact the doctor, nurse or the Infection Prevention and Control department if you have any questions. PATIENT RIGHTS AND RESPONSIBILITIES As a patient at [facility], you have the right to: Receive medical care and be informed of who is taking care of you Be treated with dignity and respect Have a family member/product representative of choice and your physician notified of your admission Receive information and actively participate in decisions about your care and treatment Refuse care, treatment and services Decide who may provide your support and speak for you Access quaker and spiritual services Participate in ethical issues and questions about your care Receive private and confidential care Have appropriate assessment and management of your pain Know guest visitation restrictions or limitations Have an advance directive Access protective services Consent or refuse to participate in research studies or production or recordings, films or other images Have resolution of your complaints Receive information of hospital charges and payment methods Patient/patient product representative responsibilities are to: Provide information about health status to facilitate care, treatment and services Follow the treatment, plan, keep appointments and speak up when you do not understand the plan Respect the rights of other patients and healthcare personnel Follow organizational rules and regulations that support quality care and a safe environment Fulfill financial obligations as promptly as possible [facility] 09-13-2024 Miscellaneous Notes Preadmission testing fax to facility for procedure on 09/20/2024 at [facility], with conformation received. Your surgery/procedure is scheduled at [facility] on 09/20/2024 at 1000 am Arrival Time 800 am [facility] Address: [address] [place] [address]. [place] [address] [address]ing [address] located on [facility]. Report to the Entrance B. Check in at the information desk the surgery. The waiting room located on the second floor. If you have any questions prior to surgery, please call Pre-Admission Clinic at [phone] between 7:30 am and 4:30 pm Tuesday through Tuesday. If you have questions the morning of surgery, please call the Pre-op Department at [phone]. Notify your SURGEON if you develop any illness such as a cold, cough, fever, sore throat, vomiting or are hospitalized between now and your surgery. Medication Instructions (Do not stop your medications without consulting the prescribing physician). Take the following medications the morning of surgery with a sip of water: xanax if needed, levetiracetam, levothyroxine, midodrine, breathing treatments Diabetic or Weight loss medications: HOLD n/a LAST DOSE n/a Take inhalers as prescribed the morning of surgery. Due to the risk associated with these medications. If these medications are not held per instruction below, your surgery is at an increased risk for cancellation. SGLT2 Medications- Hold 3 days prior to surgery: Jardiance, Empagliflozin, Farxiga, Dapagliflozin, Invokana, Canagliflozin, Trijardy, Synjardy GLP-1 Medications (Injection or Pill)- If taken daily hold day of surgery. If taken weekly, hold 1 week prior to surgery: Adlyxin, Byetta, Bydureon, Ozempic, Rybelsus,Trulicity, Victoza, Wegovy, Lixisenatide, Exenatide, Semaglutide, Dulaglutide, Liraglutide GIP/GLP-1(Injection or Pill)- If taken daily hold day of surgery. If taken weekly, hold 1 week prior to surgery: Mounjaro . Blood thinners: Please contact your prescribing physician regarding a stop/hold date for these medications. Medications such as Coumadin, Heparin, Aspirin, Plavix, Eliquis, Pradaxa Diabetics: If you take insulin, contact your prescribing doctor for instructions on how to manage this the night before and the morning of surgery. Non-steriodal Anti-Inflammatory Drugs (NSAIDS)- Hold 3 days prior to surgery unless otherwise directed by your surgeon. Vitamins/Herbal Products: You may continue to take your prescribed vitamins such as potassium, iron, vitamin B, vitamin C, or multivitamin unless specifically instructed by your surgeon to hold. STOP taking all herbal products/teas one week prior to your surgery. Marijuana: Stop marijuana 72 hours prior to surgery, stop CBD oil 48 hours prior to surgery. If you have been given bowel prep instructions by your surgeon, please call the surgeon's office with any questions about these instructions. What do I do the day of Surgery? Age 2 through adult - Stop all solids by midnight, You may have clear liquids up to 2 hours before surgery, unless otherwise instructed by your surgeon. Clear liquids are: water, sports drinks such as Gatorade or G2, or apple juice. You may NOT have: tube feedings, dairy products, alcoholic beverages, orange juice, or any liquids with solids or pulp in it. If applicable, shower again with CHG soap the morning of your surgery. In order to help prevent infection post-operatively, you may be asked to use a CHG mouthwash when you arrive to the Pre-op area. Your nurse will provide instruction the morning of. What do I need to do to prepare for surgery? If you will be going home the same day as your surgery, arrange for an adult over [address] Riding in a bus or taxi by yourself is not permitted. You should not smoke or drink alcohol 24 hours before your surgery. Alcohol thins the blood and may cause bleeding problems during surgery. Smoking increases the risk of breathing problems after surgery. Do not use lotions, creams, powders, perfume, make up, cologne or after-shaves day of surgery. Remove ALL jewelry including wedding rings, body piercings (including dermal piercing's, hair extensions that contain metal, nail jordanian, make-up, and contact lens. You may brush your teeth the morning of surgery, but do not swallow the water. Wear your dentures and partial plates to the hospital (no adhesive). Shower the night the before. If applicable, use the CHG (chlorhexidine gluconate) soap or wipes. Place clean linens on your bed after showering. Do not allow pets to sleep in your bed What should I bring to the hospital? Eyeglass or contact lens case If you will be spending the night, please bring personal care items and leave them in the car until you are taken to your room after surgery. Leave ALL valuables at home. If any of these instructions conflict with those you received from the surgeon, please seek clarification from your surgeon's office. DEEP BREATHING EXERCISES This exercise helps promote good air exchange and helps to prevent pneumonia after surgery. Breathe in slowly and deeply through the nose. Hold your breath for a few seconds and then exhale slowly through the mouth. Repeat this three times and then cough.Coughing helps to clear your lungs. If you have had a surgery with an incision into your abdomen or chest, press gently against your incision with a pillow or a folded blanket when you cough. Please be aware - it may not be reynolds to cough following some types of surgeries involving the eyes, ears, sinuses and throat. Always follow your doctor's instructions. LEG EXERCISE These exercises help promote good circulation and help to prevent blood clots after surgery. Point your toes to the ceiling and then point them to the wall. Do this slowly about 15-20 times. You may also move your feet in circles. Do the exercise that is most comfortable for you. If you have had surgery involving your shoulder or arm, we recommend you move your fingers. PRACTICING We ask that you begin practicing these exercises before your surgery. After surgery try to do both exercises at least every 2 hours during the day and early evening. Surgical Site Infection Prevention What is a Surgical Site Infection (SSI)? Infection can happen to the area of the body where surgery is done. This is called a surgical site infection (SSI). A SSI does not happen very often. What are some of the things that hospitals are doing to prevent SSIs? Soap and water or alcohol hand rub are used before and after caring for each patient. Special soap is used to clean surgery workers hands and arms just before the surgery. Masks, gowns, gloves and hair covers are worn during the surgery to keep the area clean. Hair in the surgery area may be removed with clippers (not razors). A special soap that kills germs is used to clean the skin at the surgery site. Antibiotics may be given before the surgery starts. What can you do to prevent SSIs? Before surgery: You may be asked to shower or bathe with a special soap that kills germs the night before and the day of surgery. Use the soap as you were told. Place clean sheets on your bed the night before surgery and do not allow your pets in your bed. If you smoke or vape, stop or cut down. This creates a stress response in your body that increases inflammation, constricts blood vessels and deprives your tissues of oxygen. After surgery, this stress response disrupts the travel of oxygen, nutrients, and blood to your surgical site, interfering with the wound healing process. It also decreases the ability of your cells to fight infection. Ask your doctor about ways to quit. If you have high blood sugars or diabetes please talk with your doctor about having healthy blood sugar levels to promote healing. Do not shave near where you will have surgery. Shaving can irritate the skin and make it easier to get and infection. After surgery: Be sure that the doctors and nurses clean their hands before and after touching you. Be sure your family and friends clean their hands before and after visiting you. Do not be afraid to remind them. Always wash your hands before touching your incisional area. * Care for your wound at home as told by your doctor or nurse * Call your doctor right away if you have fever, redness, increased pain, or drainage at the surgery site. Can SSIs be treated? Antibiotics are used to treat SSI. Some patients may need another surgery to treat the infection. The doctor will discuss treatment options with you. Further questions? Contact the doctor, nurse or the Infection Prevention and Control department if you have any questions. PATIENT RIGHTS AND RESPONSIBILITIES As a patient at [facility], you have the right to: Receive medical care and be informed of who is taking care of you Be treated with dignity and respect Have a family member/product representative of choice and your physician notified of your admission Receive information and actively participate in decisions about your care and treatment Refuse care, treatment and services Decide who may provide your support and speak for you Access quaker and spiritual services Participate in ethical issues and questions about your care Receive private and confidential care Have appropriate assessment and management of your pain Know guest visitation restrictions or limitations Have an advance directive Access protective services Consent or refuse to participate in research studies or production or recordings, films or other images Have resolution of your complaints Receive information of hospital charges and payment methods Patient/patient product representative responsibilities are to: Provide information about health status to facilitate care, treatment and services Follow the treatment, plan, keep appointments and speak up when you do not understand the plan Respect the rights of other patients and healthcare personnel Follow organizational rules and regulations that support quality care and a safe environment Fulfill financial obligations as promptly as possible documented in this encounter [facility] 09-13-2024 Nurse Note Preadmission testing fax to facility for procedure on 09/20/2024 at [facility], with conformation received. [facility] 09-11-2024 History of Present illness Narrative Matthew Neal Date of visit: 09/11/2024 Date of : 1965 Age: 59 y.o. Patient Active Problem List Diagnosis Dyspnea NSTEMI (non-ST elevated myocardial infarction) ([facility]) Infected prosthetic mesh of abdominal wall Morbid obesity with BMI of 60.0-69.9, adult ([facility]) End stage renal disease ([facility]) Ventilator dependence ([facility]) Coronary artery disease Diabetes 1.5, managed as type 1 ([facility]) Fall Surgical wound present Abdominal wall skin ulcer, with fat layer exposed ([facility]) Shock ([facility]) Shock, unspecified ([facility]) Closed displaced supracondylar fracture with intracondylar extension of lower end of left femur with routine healing Pneumonia Anemia Allergies Allergen Reactions Iodinated Contrast Media Shortness Of Breath Morphine Shortness Of Breath Fentanyl Patient gets burning and abdominal cramps Gadolinium-Containing Contrast Media Zosyn [Piperacillin-Tazobactam] Current Outpatient Medications Medication Sig Dispense Refill acetaminophen (TYLENOL) 325 mg tablet Take 2 tablets (650 mg total) by mouth every 6 (six) hours as needed for fever or pain. acidophilus-pectin, citrus 25 million cell -100 mg tablet Take by mouth in the morning and at noon and in the evening. Take with meals. albuterol (PROVENTIL,VENTOLIN) 2.5 mg /3 mL (0.083 %) nebulizer solution Inhale 3 mL (2.5 mg total) by nebulization every 4 (four) hours as needed for shortness of breath. ALPRAZolam (XANAX) 0.5 mg tablet Take 0.5 tablets (0.25 mg total) by mouth in the morning and 0.5 tablets (0.25 mg total) before bedtime. apixaban (ELIQUIS) 2.5 mg tablet Take 1 tablet (2.5 mg total) by mouth in the morning and 1 tablet (2.5 mg total) before bedtime. Verified last dose with [place]. aspirin 81 mg Take 1 tablet (81 mg total) by mouth in the morning. Verified last dose with [place]. atorvastatin (LIPITOR) 20 mg tablet Take 1 tablet (20 mg total) by mouth in the morning. cyclobenzaprine (FLEXERIL) 10 mg tablet Take 1 tablet (10 mg total) by mouth every 6 (six) hours. dicyclomine (BENTYL) 10 mg capsule Take 1 capsule (10 mg total) by mouth in the morning and 1 capsule (10 mg total) at noon and 1 capsule (10 mg total) before bedtime. epoetin beta, methoxy peg (MIRCERA) 75 mcg/0.3 mL syringe Inject 75 mcg as directed every 14 (fourteen) days. ferrous sulfate 325 (65 FE) mg tablet Take 1 tablet (325 mg total) by mouth daily with breakfast. 30 tablet 0 folic acid (FOLVITE) 1 mg tablet Take 1 tablet (1 mg total) by mouth in the morning. 30 tablet 3 gabapentin (NEURONTIN) 100 mg capsule Take 1 capsule (100 mg total) by mouth in the morning and 1 capsule (100 mg total) at noon and 1 capsule (100 mg total) before bedtime. insulin glargine (LANTUS, SEMGLEE) 100 unit/mL (3 mL) insulin pen Inject 32 Units under the skin in the morning and 32 Units in the evening. Inject before meals. insulin lispro (HumaLOG) 100 unit/mL insulin pen [...] For glucose 351-400 mg/dL, give 10 units. (Patient taking differently: Inject 2-10 Units under the skin in the morning and 2-10 Units at noon and 2-10 Units in the evening. Inject with meals. For glucose 201-250 mg/dL, give 4 units. For glucose 251-300 mg/dL, give 6 units. For glucose 301-350 mg/dL, give 8 units. For glucose 351-400 mg/dL, give 10 units.) 15 mL 12 levETIRAcetam (KEPPRA) 1000 mg tablet Take 1 tablet (1,000 mg total) by mouth in the morning and 1 tablet (1,000 mg total) before bedtime. 60 tablet 0 levothyroxine (SYNTHROID, LEVOTHROID) 175 MCG tablet Take 1 tablet (175 mcg total) by mouth in the morning. loperamide (IMODIUM A-D) 2 mg tablet Take [...] do not exceed 4 tabs per day). magnesium oxide (MAGOX) 400 mg tablet Take 1 tablet (400 mg total) by mouth in the morning. metoprolol succinate XL (TOPROL XL) 25 mg 24 hr tablet Take 1 tablet (25 mg total) by mouth in the morning. (Patient taking differently: Take 1 tablet (25 mg total) by mouth in the morning. Not included on JUN from spring.) 30 tablet 3 midodrine (PROAMATINE) 10 mg tablet Take 1 tablet (10 mg total) by mouth as needed (Hemodialysis - PRN at initiation and midway through dialysis session). 90 tablet 3 midodrine (PROAMATINE) 10 mg tablet Take 1 tablet (10 mg total) by mouth 3 (three) times a day. Pre and mid dialysis treatment for low bp multivitamin (THERAGRAN) tablet Take 1 tablet by mouth in the morning. naloxone (NARCAN) 4 mg/actuation spray,non-aerosol nasal spray Administer 1 spray (4 mg total) into alternating nostrils as needed for opioid reversal. 3 each 3 ondansetron (ZOFRAN) 4 mg tablet Take 1 tablet (4 mg total) by mouth every 8 (eight) hours as needed for nausea or vomiting. oxyCODONE (OXY-IR) 5 mg capsule Take 1 capsule (5 mg total) by mouth every 6 (six) hours as needed for pain. pantoprazole (PROTONIX) 40 mg EC tablet Take 1 tablet (40 mg total) by mouth in the morning. polyethylene glycol (GLYCOLAX) 17 gram/dose powder Take 17 g by mouth in the morning. sennosides-docusate sodium (SENOKOT-S) 8.6-50 mg Take 1 tablet by mouth once daily at bedtime. sevelamer (RENVELA) 800 mg tablet Take 1 tablet (800 mg total) by mouth in the morning and 1 tablet (800 mg total) at noon and 1 tablet (800 mg total) in the evening. Take with meals. sulfamethoxazole-trimethoprim (BACTRIM DS) 800-160 mg per tablet Take 1 tablet by mouth in the morning and 1 tablet before bedtime. Not included on JUN from [place]. No current facility-administered medications for this visit. Chief Complaint Patient presents with Follow-up EST PT F/U 4 MS L/S MS SCHED W/ ASMITA History of Present Illness 59-year-old female with a extensive medical and cardiac history as detailed below is here in follow-up for preoperative cardiac evaluation prior to EGD/colonoscopy. Patient is wheelchair-bound morbidly obese vent dependent. Reports left-sided chest pain under her breast. Not cardiac reproducible due to irritation. Her blood pressure is controlled she is in sinus tachycardia. She has prior history of vaginal and GI bleed reportedly is having low GI bleed with anemia last hemoglobin 9.2% Past Medical History: Diagnosis Date Anemia Anemia 01/30/2024 Anxiety CHF (congestive heart failure) ([facility]) Chronic kidney disease end stage Dependence on supplemental oxygen Dependent on ventilator ([facility]) AC VC RR20 VT 500 P8 Depression Diabetes ([facility]) Diabetes mellitus type 2, controlled ([facility]) Dialysis patient at [place] every day shift M-F GERD (gastroesophageal reflux disease) Hypertension Hypothyroidism Morbid obesity ([facility]) NSTEMI (non-ST elevated myocardial infarction) ([facility]) Respiratory failure ([facility]) Schizoaffective disorder ([facility]) Sleep apnea Tracheostomy present ([facility]) Unspecified convulsions ([facility]) No data recorded No data recorded No data recorded Past Surgical History: Procedure Laterality Date BRONCHOSCOPY WIHT BAL N/A 04/27/2024 Performed by Maximo Moscoso MD at [facility] HYSTEROSCOPY DILATION CURETTAGE N/A 12/21/2023 Performed by Wesley Kim MD at [facility] INSERTION INTRAUTERINE DEVICE N/A 12/21/2023 Performed by Wesley Kim MD at [facility] OPEN REDUCTION INTERNAL FIXATION FEMUR Left 11/08/2023 Performed by Jagdish Vasquez MD at [facility] TRACHEOSTOMY No family history on file. Social History Socioeconomic History Marital status: Spouse name: Not on file Number of children: Not on file Years of education: Not on file Highest education level: Not on file Occupational History Not on file Tobacco Use Smoking status: Never Smokeless tobacco: Never Vaping Use Vaping status: Never Used Substance and Sexual Activity Alcohol use: Not Currently Drug use: Never Sexual activity: Defer Other Topics Concern Caffeine Use Yes Social History Narrative Not on file Social Drivers of Health Financial Resource Strain: Not on file Food Insecurity: No Food Insecurity (08/31/2024) Hunger Screening Food Insecurity - Worry: Never True Food Insecurity - Inability: Never True Transportation Needs: No Transportation Needs (01/30/2024) PRAPARE - Transportation Lack of Transportation (Medical): No Lack of Transportation (Non-Medical): No Physical Activity: Inactive (09/14/2023) Received from [facility] Exercise Vital Sign Days of Exercise per Week: 0 days Minutes of Exercise per Session: 0 min Stress: No Stress Concern Present (09/14/2023) Received from [facility] [employer] [place] [employer] - Occupational Stress Questionnaire Feeling of Stress : Not at all Social Connections: Not on file Interpersonal Safety: Not At Risk (02/07/2024) Received from [facility] Humiliation, Afraid, Rape, and Kick questionnaire Fear of Current or Ex-Partner: No Emotionally Abused: No Physically Abused: No Sexually Abused: No Housing Instability: Low Risk (01/30/2024) Housing Instability Housing Instability: No Review of Systems Review of Systems Constitutional: Positive for malaise/fatigue. Negative for decreased appetite. HENT: Negative for nosebleeds. Respiratory: Positive for cough. Negative for shortness of breath and wheezing. Hematologic/Lymphatic: Does not bruise/bleed easily. Musculoskeletal: Negative for joint pain, joint swelling, muscle cramps and muscle weakness. Gastrointestinal: Positive for bloating, abdominal pain, nausea and vomiting. Negative for heartburn. Neurological: Negative for dizziness, headaches, light-headedness and loss of balance. Psychiatric/Behavioral: Negative for depression. The patient is not nervous/anxious. CARDIOVASCULAR: Please review HPI. Physical Examination General appearance: Alert, oriented and cooperative. In no acute distress. Chronically ill wheelchair-bound Respiratory: Distant, vent dependent, mechanical sounds Cardiovascular: Distant heart sounds RRR with normal S1 and S2 with no murmurs. Musculoskeletal: Bilateral lymphedema Neurologic: Oriented to time, person and place, affect appropriate Psychiatric: Appropriate mood, memory and judgement. VITAL SIGNS: Ht 154.9 cm (5' 1 ) BMI 59.52 kg/m No orders of the defined types were placed in this encounter. There are no discontinued medications. [id number] Score: 3 3.2% Stroke risk per year, 4.6% risk of stroke/TIA/systemic embolism IMPRESSIONS/PLAN There are no diagnoses linked to this encounter. Preoperative cardiovascular evaluation Musculoskeletal left-sided chest pain Low risk dobutamine stress echo on 07/05/2023 Chronic heart failure with preserved ejection fraction Chronic respiratory failure, trach vent dependent Paroxysmal atrial flutter CHADS-VASc 4 Essential hypertension Diabetes type 1 on insulin Prior history with GI and vaginal bleed History of seizure disorder Hypothyroidism End-stage renal disease on hemodialysis Former smoker/COPD Morbid obesity with a BMI of 60 Bilateral lymphedema --- given patient co morbidities she would be high-risk for most surgeries. She has a moderate to high, non prohibitive preoperative cardiac risk for low risk procedure (EGD/colonoscopy) her RCRI score is 3 which Corresponds to 15% risk of major cardiac event -- as of anticoagulation she is on Eliquis 2.5 mg b.i.d. for stroke prevention which is off-label inpatient with end-stage renal disease however with her BMI --> Proper anticoagulation for stroke prevention would be Coumadin with INR monitoring given her BMI and kidney function. Regardless both aspirin and Eliquis can be stopped 2-5 days prior to the procedure. - STEFAN LINDA MD 09/11/24 2:29 PM TODAYS ORDERS No orders of the defined types were placed in this encounter. FOLLOW UP No follow-ups on file. PCP: JULIÁN CONTI MD Referring Physician: Jul[place]án [place] [address] documented in this encounter [facility] 09-10-2024 Miscellaneous Notes ATTEMPTED TO CONTACT ASMITA [facility], NO ANSWER OR VM TO LM ON. documented in this encounter [facility] 09-10-2024 Telephone encounter Note ATTEMPTED TO CONTACT ASMITA [facility], NO ANSWER OR VM TO LM ON. [facility] 07-27-2024 Telephone encounter Note Requested Prescriptions Signed Prescriptions Disp Refills oxyCODONE (Roxicodone) 5 MG immediate release tablet 120 tablet 0 Sig: Take 1 tablet (5 mg) by mouth every 6 (six) hours if needed for severe pain Authorizing Provider: DOMINGO TOBIAS [facility] 07-27-2024 Miscellaneous Notes Requested Prescriptions Signed Prescriptions Disp Refills oxyCODONE (Roxicodone) 5 MG immediate release tablet 120 tablet 0 Sig: Take 1 tablet (5 mg) by mouth every 6 (six) hours if needed for severe pain Authorizing Provider: DOMINGO TOBIAS documented in this encounter [facility] 07-26-2024 Miscellaneous Notes Preadmission testing fax instructions to facility with confirmation received for surgery at [facility] for surgery on 08/21/2024 Your surgery/procedure is scheduled at [facility] on 08/21/2024 at 1000 am Arrival Time 800 am [facility] Address: [address] [place], [place] [id number] Park in [address] Parking lot located on [facility]. Report to the Entrance B. Check in at the information desk the surgery. The waiting room located on the second floor. If you have any questions prior to surgery, please call Pre-Admission Clinic at [phone] between 7:30 am and 4:30 pm Tuesday through Tuesday. If you have questions the morning of surgery, please call the Pre-op Department at [phone]. Notify your SURGEON if you develop any illness such as a cold, cough, fever, sore throat, vomiting or are hospitalized between now and your surgery. Medication Instructions (Do not stop your medications without consulting the prescribing physician). Take the following medications the morning of surgery with a sip of water: xanax if needed, gabapentin, levetira(Keppra), levothyroxine, pantoprazole breating treatments if necessary Diabetic or Weight loss medications: HOLD n/a LAST DOSE n/a Take inhalers as prescribed the morning of surgery. Due to the risk associated with these medications. If these medications are not held per instruction below, your surgery is at an increased risk for cancellation. SGLT2 Medications- Hold 3 days prior to surgery: Jardiance, Empagliflozin, Farxiga, Dapagliflozin, Invokana, Canagliflozin, Trijardy, Synjardy GLP-1 Medications (Injection or Pill)- If taken daily hold day of surgery. If taken weekly, hold 1 week prior to surgery: Adlyxin, Byetta, Bydureon, Ozempic, Rybelsus,Trulicity, Victoza, Wegovy, Lixisenatide, Exenatide, Semaglutide, Dulaglutide, Liraglutide GIP/GLP-1(Injection or Pill)- If taken daily hold day of surgery. If taken weekly, hold 1 week prior to surgery: Mounjaro . Blood thinners: THIS INCLUDE APIXABAN/ELIQUIS AND ASPIRIN Please contact your prescribing physician regarding a stop/hold date for these medications. Medications such as Coumadin, Heparin, Aspirin, Plavix, Pradaxa Diabetics: If you take insulin, contact your prescribing doctor for instructions on how to manage this the night before and the morning of surgery. Non-steriodal Anti-Inflammatory Drugs (NSAIDS)- Hold 7 TO 14 days prior to surgery unless otherwise directed by your surgeon. Vitamins/Herbal Products: You may continue to take your prescribed vitamins such as potassium, iron, vitamin B, vitamin C, or multivitamin unless specifically instructed by your surgeon to hold. STOP taking all herbal products/teas one week prior to your surgery. Marijuana: Stop marijuana 72 hours prior to surgery, stop CBD oil 48 hours prior to surgery. If you have been given bowel prep instructions by your surgeon, please call the surgeon's office with any questions about these instructions. What do I do the day of Surgery? Age 2 through adult - Stop all solids by midnight, You may have clear liquids up to 2 hours before surgery, unless otherwise instructed by your surgeon. Clear liquids are: water, sports drinks such as Gatorade or G2, or apple juice. You may NOT have: tube feedings, dairy products, alcoholic beverages, orange juice, or any liquids with solids or pulp in it. If applicable, shower again with CHG soap the morning of your surgery. If you received a green plastic bracelet, bring it with you the day of surgery and your nurse will put it on you. In order to help prevent infection post-operatively, you may be asked to use a CHG mouthwash when you arrive to the Pre-op area. Your nurse will provide instruction the morning of. What do I need to do to prepare for surgery? If you will be going home the same day as your surgery, arrange for an adult over [address] Riding in a bus or taxi by yourself is not permitted. You should not smoke or drink alcohol 24 hours before your surgery. Alcohol thins the blood and may cause bleeding problems during surgery. Smoking increases the risk of breathing problems after surgery. Do not use lotions, creams, powders, perfume, make up, cologne or after-shaves day of surgery. Remove ALL jewelry including wedding rings, body piercings (including dermal piercings ,hair extensions that contain metal, nail jordanian, make-up, and contact lens. You may brush your teeth the morning of surgery, but do not swallow the water. Wear your dentures and partial plates to the hospital (no adhesive). Shower the night the before. If applicable, use the CHG (chlorhexidine gluconate) soap or wipes. Place clean linens on your bed after showering. Do not allow pets to sleep in your bed What should I bring to the hospital? If you received a green plastic bracelet, bring it with you the day of surgery and your nurse will put it on you. Eyeglass or contact lens case If you will be spending the night, please bring personal care items and leave them in the car until you are taken to your room after surgery. Leave ALL valuables at home. If any of these instructions conflict with those you received from the surgeon, please seek clarification from your surgeon's office. DEEP BREATHING EXERCISES This exercise helps promote good air exchange and helps to prevent pneumonia after surgery. Breathe in slowly and deeply through the nose. Hold your breath for a few seconds and then exhale slowly through the mouth. Repeat this three times and then cough.Coughing helps to clear your lungs. If you have had a surgery with an incision into your abdomen or chest, press gently against your incision with a pillow or a folded blanket when you cough. Please be aware - it may not be reynolds to cough following some types of surgeries involving the eyes, ears, sinuses and throat. Always follow your doctor's instructions. LEG EXERCISE These exercises help promote good circulation and help to prevent blood clots after surgery. Point your toes to the ceiling and then point them to the wall. Do this slowly about 15-20 times. You may also move your feet in circles. Do the exercise that is most comfortable for you. If you have had surgery involving your shoulder or arm, we recommend you move your fingers. PRACTICING We ask that you begin practicing these exercises before your surgery. After surgery try to do both exercises at least every 2 hours during the day and early evening. Surgical Site Infection Prevention What is a Surgical Site Infection (SSI)? Infection can happen to the area of the body where surgery is done. This is called a surgical site infection (SSI). A SSI does not happen very often. What are some of the things that hospitals are doing to prevent SSIs? Soap and water or alcohol hand rub are used before and after caring for each patient. Special soap is used to clean surgery workers hands and arms just before the surgery. Masks, gowns, gloves and hair covers are worn during the surgery to keep the area clean. Hair in the surgery area may be removed with clippers (not razors). A special soap that kills germs is used to clean the skin at the surgery site. Antibiotics may be given before the surgery starts. What can you do to prevent SSIs? Before surgery: You may be asked to shower or bathe with a special soap that kills germs the night before and the day of surgery. Use the soap as you were told. Place clean sheets on your bed the night before surgery and do not allow your pets in your bed. If you smoke or vape, stop or cut down. This creates a stress response in your body that increases inflammation, constricts blood vessels and deprives your tissues of oxygen. After surgery, this stress response disrupts the travel of oxygen, nutrients, and blood to your surgical site, interfering with the wound healing process. It also decreases the ability of your cells to fight infection. Ask your doctor about ways to quit. If you have high blood sugars or diabetes please talk with your doctor about having healthy blood sugar levels to promote healing. Do not shave near where you will have surgery. Shaving can irritate the skin and make it easier to get and infection. After surgery: Be sure that the doctors and nurses clean their hands before and after touching you. Be sure your family and friends clean their hands before and after visiting you. Do not be afraid to remind them. Always wash your hands before touching your incisional area. * Care for your wound at home as told by your doctor or nurse * Call your doctor right away if you have fever, redness, increased pain, or drainage at the surgery site. Can SSIs be treated? Antibiotics are used to treat SSI. Some patients may need another surgery to treat the infection. The doctor will discuss treatment options with you. Further questions? Contact the doctor, nurse or the Infection Prevention and Control department if you have any questions. PATIENT RIGHTS AND RESPONSIBILITIES As a patient at [facility], you have the right to: Receive medical care and be informed of who is taking care of you Be treated with dignity and respect Have a family member/product representative of choice and your physician notified of your admission Receive information and actively participate in decisions about your care and treatment Refuse care, treatment and services Decide who may provide your support and speak for you Access quaker and spiritual services Participate in ethical issues and questions about your care Receive private and confidential care Have appropriate assessment and management of your pain Know guest visitation restrictions or limitations Have an advance directive Access protective services Consent or refuse to participate in research studies or production or recordings, films or other images Have resolution of your complaints Receive information of hospital charges and payment methods Patient/patient product representative responsibilities are to: Provide information about health status to facilitate care, treatment and services Follow the treatment, plan, keep appointments and speak up when you do not understand the plan Respect the rights of other patients and healthcare personnel Follow organizational rules and regulations that support quality care and a safe environment Fulfill financial obligations as promptly as possible documented in this encounter [facility] 07-26-2024 Nurse Note Preadmission testing fax instructions to facility with confirmation received for surgery at [facility] for surgery on 08/21/2024 [facility] 07-26-2024 Instructions Formatting of th is note might be different from the original. Your surgery/procedure is scheduled at [facility] on 08/21/2024 at 1000 am Arrival Time 800 am [facility] Address: [address] [place] [address] in [address] located on [facility]. Report to the Entrance B. Check in at the information desk the surgery. The waiting room located on the second floor. If you have any questions prior to surgery, please call Pre-Admission Clinic at [phone] between 7:30 am and 4:30 pm Tuesday through Tuesday. If you have questions the morning of surgery, please call the Pre-op Department at [phone]. Notify your SURGEON if you develop any illness such as a cold, cough, fever, sore throat, vomiting or are hospitalized between now and your surgery. Medication Instructions (Do not stop your medications without consulting the prescribing physician). Take the following medications the morning of surgery with a sip of water: xanax if needed, gabapentin, levetira(Keppra), levothyroxine, pantoprazole breating treatments if necessary Diabetic or Weight loss medications: HOLD n/a LAST DOSE n/a Take inhalers as prescribed the morning of surgery. Due to the risk associated with these medications. If these medications are not held per instruction below, your surgery is at an increased risk for cancellation. SGLT2 Medications- Hold 3 days prior to surgery: Jardiance, Empagliflozin, Farxiga, Dapagliflozin, Invokana, Canagliflozin, Trijardy, Synjardy GLP-1 Medications (Injection or Pill)- If taken daily hold day of surgery. If taken weekly, hold 1 week prior to surgery: Adlyxin, Byetta, Bydureon, Ozempic, Rybelsus,Trulicity, Victoza, Wegovy, Lixisenatide, Exenatide, Semaglutide, Dulaglutide, Liraglutide GIP/GLP-1(Injection or Pill)- If taken daily hold day of surgery. If taken weekly, hold 1 week prior to surgery: Mary . Blood thinners: THIS INCLUDE APIXABAN/ELIQUIS AND ASPIRIN Please contact your prescribing physician regarding a stop/hold date for these medications. Medications such as Coumadin, Heparin, Aspirin, Plavix, Pradaxa Diabetics: If you take insulin, contact your prescribing doctor for instructions on how to manage this the night before and the morning of surgery. Non-steriodal Anti-Inflammatory Drugs (NSAIDS)- Hold 7 TO 14 days prior to surgery unless otherwise directed by your surgeon. Vitamins/Herbal Products: You may continue to take your prescribed vitamins such as potassium, iron, vitamin B, vitamin C, or multivitamin unless specifically instructed by your surgeon to hold. STOP taking all herbal products/teas one week prior to your surgery. Marijuana: Stop marijuana 72 hours prior to surgery, stop CBD oil 48 hours prior to surgery. If you have been given bowel prep instructions by your surgeon, please call the surgeon's office with any questions about these instructions. What do I do the day of Surgery? Age 2 through adult - Stop all solids by midnight, You may have clear liquids up to 2 hours before surgery, unless otherwise instructed by your surgeon. Clear liquids are: water, sports drinks such as Gatorade or G2, or apple juice. You may NOT have: tube feedings, dairy products, alcoholic beverages, orange juice, or any liquids with solids or pulp in it. If applicable, shower again with CHG soap the morning of your surgery. If you received a green plastic bracelet, bring it with you the day of surgery and your nurse will put it on you. In order to help prevent infection post-operatively, you may be asked to use a CHG mouthwash when you arrive to the Pre-op area. Your nurse will provide instruction the morning of. What do I need to do to prepare for surgery? If you will be going home the same day as your surgery, arrange for an adult over [address] Riding in a bus or taxi by yourself is not permitted. You should not smoke or drink alcohol 24 hours before your surgery. Alcohol thins the blood and may cause bleeding problems during surgery. Smoking increases the risk of breathing problems after surgery. Do not use lotions, creams, powders, perfume, make up, cologne or after-shaves day of surgery. Remove ALL jewelry including wedding rings, body piercings (including dermal piercings ,hair extensions that contain metal, nail jordanian, make-up, and contact lens. You may brush your teeth the morning of surgery, but do not swallow the water. Wear your dentures and partial plates to the hospital (no adhesive). Shower the night the before. If applicable, use the CHG (chlorhexidine gluconate) soap or wipes. Place clean linens on your bed after showering. Do not allow pets to sleep in your bed What should I bring to the hospital? If you received a green plastic bracelet, bring it with you the day of surgery and your nurse will put it on you. Eyeglass or contact lens case If you will be spending the night, please bring personal care items and leave them in the car until you are taken to your room after surgery. Leave ALL valuables at home. If any of these instructions conflict with those you received from the surgeon, please seek clarification from your surgeon's office. DEEP BREATHING EXERCISES This exercise helps promote good air exchange and helps to prevent pneumonia after surgery. Breathe in slowly and deeply through the nose. Hold your breath for a few seconds and then exhale slowly through the mouth. Repeat this three times and then cough.Coughing helps to clear your lungs. If you have had a surgery with an incision into your abdomen or chest, press gently against your incision with a pillow or a folded blanket when you cough. Please be aware - it may not be reynolds to cough following some types of surgeries involving the eyes, ears, sinuses and throat. Always follow your doctor's instructions. LEG EXERCISE These exercises help promote good circulation and help to prevent blood clots after surgery. Point your toes to the ceiling and then point them to the wall. Do this slowly about 15-20 times. You may also move your feet in circles. Do the exercise that is most comfortable for you. If you have had surgery involving your shoulder or arm, we recommend you move your fingers. PRACTICING We ask that you begin practicing these exercises before your surgery. After surgery try to do both exercises at least every 2 hours during the day and early evening. Surgical Site Infection Prevention What is a Surgical Site Infection (SSI)? Infection can happen to the area of the body where surgery is done. This is called a surgical site infection (SSI). A SSI does not happen very often. What are some of the things that hospitals are doing to prevent SSIs? Soap and water or alcohol hand rub are used before and after caring for each patient. Special soap is used to clean surgery workers hands and arms just before the surgery. Masks, gowns, gloves and hair covers are worn during the surgery to keep the area clean. Hair in the surgery area may be removed with clippers (not razors). A special soap that kills germs is used to clean the skin at the surgery site. Antibiotics may be given before the surgery starts. What can you do to prevent SSIs? Before surgery: You may be asked to shower or bathe with a special soap that kills germs the night before and the day of surgery. Use the soap as you were told. Place clean sheets on your bed the night before surgery and do not allow your pets in your bed. If you smoke or vape, stop or cut down. This creates a stress response in your body that increases inflammation, constricts blood vessels and deprives your tissues of oxygen. After surgery, this stress response disrupts the travel of oxygen, nutrients, and blood to your surgical site, interfering with the wound healing process. It also decreases the ability of your cells to fight infection. Ask your doctor about ways to quit. If you have high blood sugars or diabetes please talk with your doctor about having healthy blood sugar levels to promote healing. Do not shave near where you will have surgery. Shaving can irritate the skin and make it easier to get and infection. After surgery: Be sure that the doctors and nurses clean their hands before and after touching you. Be sure your family and friends clean their hands before and after visiting you. Do not be afraid to remind them. Always wash your hands before touching your incisional area. * Care for your wound at home as told by your doctor or nurse * Call your doctor right away if you have fever, redness, increased pain, or drainage at the surgery site. Can SSIs be treated? Antibiotics are used to treat SSI. Some patients may need another surgery to treat the infection. The doctor will discuss treatment options with you. Further questions? Contact the doctor, nurse or the Infection Prevention and Control department if you have any questions. PATIENT RIGHTS AND RESPONSIBILITIES As a patient at [facility], you have the right to: Receive medical care and be informed of who is taking care of you Be treated with dignity and respect Have a family member/product representative of choice and your physician notified of your admission Receive information and actively participate in decisions about your care and treatment Refuse care, treatment and services Decide who may provide your support and speak for you Access quaker and spiritual services Participate in ethical issues and questions about your care Receive private and confidential care Have appropriate assessment and management of your pain Know guest visitation restrictions or limitations Have an advance directive Access protective services Consent or refuse to participate in research studies or production or recordings, films or other images Have resolution of your complaints Receive information of hospital charges and payment methods Patient/patient product representative responsibilities are to: Provide information about health status to facilitate care, treatment and services Follow the treatment, plan, keep appointments and speak up when you do not understand the plan Respect the rights of other patients and healthcare personnel Follow organizational rules and regulations that support quality care and a safe environment Fulfill financial obligations as promptly as possible [facility] 07-11-2024 Telephone encounter Note Requested Prescriptions Signed Prescriptions Disp Refills oxyCODONE (Roxicodone) 5 MG immediate release tablet 120 tablet 0 Sig: Take 1 tablet (5 mg) by mouth every 6 (six) hours if needed for severe pain Authorizing Provider: DOMINGO TOBIAS T [facility] 07-11-2024 Miscellaneous Notes Requested Prescriptions Signed Prescriptions Disp Refills oxyCODONE (Roxicodone) 5 MG immediate release tablet 120 tablet 0 Sig: Take 1 tablet (5 mg) by mouth every 6 (six) hours if needed for severe pain Authorizing Provider: DOMINGO TOBIAS documented in this encounter [facility] 05-29-2024 Telephone encounter Note Requested Prescriptions Signed Prescriptions Disp Refills oxyCODONE (Roxicodone) 5 MG immediate release tablet 90 tablet 0 Sig: Take 1 tablet (5 mg) by mouth in the morning and 1 tablet (5 mg) in the evening and 1 tablet (5 mg) before bedtime. Authorizing Provider: DOMINGO TOBIAS oxyCODONE (Roxicodone) 5 MG immediate release tablet 120 tablet 0 Sig: Take 1 tablet (5 mg) by mouth every 6 (six) hours if needed for severe pain Authorizing Provider: DOMINGO TOBIAS vent/HD pt with chronic pain. [facility] 05-29-2024 Miscellaneous Notes Requested Prescriptions Signed Prescriptions Disp Refills oxyCODONE (Roxicodone) 5 MG immediate release tablet 90 tablet 0 Sig: Take 1 tablet (5 mg) by mouth in the morning and 1 tablet (5 mg) in the evening and 1 tablet (5 mg) before bedtime. Authorizing Provider: DOMINGO TOBIAS oxyCODONE (Roxicodone) 5 MG immediate release tablet 120 tablet 0 Sig: Take 1 tablet (5 mg) by mouth every 6 (six) hours if needed for severe pain Authorizing Provider: DOMINGO TOBIAS vent/HD pt with chronic pain. documented in this encounter [facility] 05-11-2024 History of Present illness Narrative Images from the original note were not included. ORTHOPAEDIC TELEMEDICINE VISIT NOTE: DATE OF VISIT: 05/11/2024 This call is considered a telephone visit, which is to help assess your current healthcare needs and to determine the appropriate care you may require. This visit may be a billable service through your insurance company. Do you consent to moving forward with this telephone visit? Yes Length of the Call/Visit : 5 minutes i. 93960 - 5-10 minutes ii. 63773 - 11-20 minutes iii. 73433 - 21-30 minutes CHIEF COMPLAINT / VISIT REASON: Chief Complaint Patient presents with Left Knee - Follow-up HISTORY OF PRESENT ILLNESS: Matthew Neal is a 59 y.o. female presents 05/11/2024 for follow-up of her Closed displaced supracondylar fracture with intracondylar extension of lower end of left femur with routine healing. . Date of Surgery: 11/08/23. She is 7 month(s) status post operative stabilization left distal femur fracture. She was last evaluated in 01/2024 while admitted as an inpatient. Recommendations at that time were to continue with activity as tolerated to the LLE however patient is noted to be nonambulatory at baseline. She was present via telemedicine today for radiographic and clinical evaluation. She is currently in dialysis and has assistance from some staff members present. She has been using a lift for all mobilization and denies significant pain in her left leg. She denies any known issues with her previous left leg incisions which is confirmed by staff. Social History Occupational History Not on file Tobacco Use Smoking status: Never Smokeless tobacco: Never Vaping Use Vaping status: Never Used Substance and Sexual Activity Alcohol use: Not Currently Drug use: Never Sexual activity: Defer ALLERGIES: Allergies Allergen Reactions Iodinated Contrast Media Shortness Of Breath Morphine Shortness Of Breath Fentanyl Patient gets burning and abdominal cramps Gadolinium-Containing Contrast Media Zosyn [Piperacillin-Tazobactam] HOME MEDICATIONS: Current Outpatient Medications: acetaminophen (TYLENOL) 325 mg tablet, Take 2 tablets (650 mg total) by mouth every 6 (six) hours as needed for fever or pain., Disp: , Rfl: acidophilus-pectin, citrus 25 million cell -100 mg tablet, Take by mouth 3 (three) times a day with meals., Disp: , Rfl: albuterol (PROVENTIL,VENTOLIN) 2.5 mg /3 mL (0.083 %) nebulizer solution, Inhale 3 mL (2.5 mg total) by nebulization every 4 (four) hours as needed for shortness of breath., Disp: , Rfl: ALPRAZolam (XANAX) 0.5 mg tablet, Take 1 tablet (0.5 mg total) by mouth in the morning and 1 tablet (0.5 mg total) before bedtime., Disp: , Rfl: apixaban (ELIQUIS) 2.5 mg tablet, Take 1 tablet (2.5 mg total) by mouth in the morning and 1 tablet (2.5 mg total) before bedtime. Verified last dose with [place]., Disp: , Rfl: aspirin 81 mg, Take 1 tablet (81 mg total) by mouth in the morning. Verified last dose with [place]., Disp: , Rfl: atorvastatin (LIPITOR) 20 mg tablet, Take 1 tablet (20 mg total) by mouth in the morning., Disp: , Rfl: bumetanide (BUMEX) 2 mg tablet, Take 1 tablet (2 mg total) by mouth daily. HOLD until follow-up with Nephrology. (Patient not taking: Reported on 05/09/2024), Disp: , Rfl: cefTRIAXone (ROCEPHIN) 100 mg/mL injection, Inject 10 mL (1,000 mg total) into the appropriate muscle. For 5 days start 05/03/2024, Disp: , Rfl: cholecalciferol (VITAMIN D3) 1,000 units tablet, Take 2 tablets (2,000 Units total) by mouth in the morning. Indications: low vitamin D levels., Disp: , Rfl: cyclobenzaprine (FLEXERIL) 10 mg tablet, Take 1 tablet (10 mg total) by mouth every 6 (six) hours., Disp: , Rfl: dicyclomine (BENTYL) 10 mg capsule, Take 1 capsule (10 mg total) by mouth 3 (three) times a day., Disp: , Rfl: epoetin beta, methoxy peg (MIRCERA) 75 mcg/0.3 mL syringe, Inject 75 mcg as directed every 14 (fourteen) days., Disp: , Rfl: ferrous sulfate 325 (65 FE) mg tablet, Take 1 tablet (325 mg total) by mouth daily with breakfast., Disp: 30 tablet, Rfl: 0 folic acid (FOLVITE) 1 mg tablet, Take 1 tablet (1 mg total) by mouth in the morning., Disp: 30 tablet, Rfl: 3 gabapentin (NEURONTIN) 100 mg capsule, Take 1 capsule (100 mg total) by mouth 3 (three) times a day., Disp: , Rfl: HYDROcodone-acetaminophen (NORCO) 5-325 mg per tablet, Take 1 tablet by mouth every 4 (four) hours as needed for pain. Max Daily Amount: 6 tablets (Patient not taking: Reported on 05/09/2024), Disp: , Rfl: insulin glargine (LANTUS, SEMGLEE) 100 unit/mL (3 mL) insulin pen, Inject 32 Units under the skin in the morning and 32 Units in the evening. Inject before meals., Disp: , Rfl: insulin lispro (HumaLOG) 100 unit/mL insulin pen, Inject 2-10 Units under the skin in the morning and 2-10 Units at noon and 2-10 Units in the evening. Inject with meals. For glucose 151-200 mg/dL, give 2 units. For glucose 201-250 mg/dL, give 4 units. For glucose 251-300 mg/dL, give 6 units. For glucose 301-350 mg/dL, give 8 units. For glucose 351-400 mg/dL, give 10 units., Disp: 15 mL, Rfl: 12 insulin lispro (HumaLOG) 100 unit/mL insulin pen, Inject 2-8 Units under the skin nightly. Bedtime hyperglycemia dosing. For glucose 201-250 mg/dL, give 2 units. For glucose 251-300 mg/dL, give 4 units. For glucose 301-350 mg/dL, give 6 units. For glucose 351-400 mg/dL, give 8 units., Disp: 15 mL, Rfl: 12 levETIRAcetam (KEPPRA) 1000 mg tablet, Take 1 tablet (1,000 mg total) by mouth in the morning and 1 tablet (1,000 mg total) before bedtime., Disp: 60 tablet, Rfl: 0 levoFLOXacin (LEVAQUIN) 750 mg tablet, Take 1 tablet (750 mg total) by mouth in the morning. (Patient not taking: Reported on 05/09/2024), Disp: , Rfl: levothyroxine (SYNTHROID, LEVOTHROID) 175 MCG tablet, Take 1 tablet (175 mcg total) by mouth in the morning., Disp: , Rfl: loperamide (IMODIUM A-D) 2 mg tablet, Take 1-2 tablets (2-4 mg total) by mouth 4 (four) times a day as needed for diarrhea (give 2 tabs after first loose stool, may repeat 1 tab after each consecutive loos stool, do not exceed 4 tabs per day)., Disp: , Rfl: magnesium oxide (MAGOX) 400 mg tablet, Take 1 tablet (400 mg total) by mouth in the morning., Disp: , Rfl: metoprolol succinate XL (TOPROL XL) 25 mg 24 hr tablet, Take 1 tablet (25 mg total) by mouth in the morning., Disp: 30 tablet, Rfl: 3 midodrine (PROAMATINE) 10 mg tablet, Take 1 tablet (10 mg total) by mouth as needed (Hemodialysis - PRN at initiation and midway through dialysis session)., Disp: 90 tablet, Rfl: 3 midodrine (PROAMATINE) 10 mg tablet, Take 1 tablet (10 mg total) by mouth 3 (three) times a day., Disp: , Rfl: multivitamin (THERAGRAN) tablet, Take 1 tablet by mouth in the morning., Disp: , Rfl: mupirocin (BACTROBAN) 2 % ointment, Apply 1 Application topically in the morning., Disp: , Rfl: naloxone (NARCAN) 4 mg/actuation spray,non-aerosol nasal spray, Administer 1 spray (4 mg total) into alternating nostrils as needed for opioid reversal., Disp: 3 each, Rfl: 3 ondansetron (ZOFRAN) 4 mg tablet, Take 1 tablet (4 mg total) by mouth every 8 (eight) hours as needed for nausea or vomiting., Disp: , Rfl: oxyCODONE (OXY-IR) 5 mg capsule, Take 1 capsule (5 mg total) by mouth every 6 (six) hours as needed for pain., Disp: , Rfl: pantoprazole (PROTONIX) 40 mg EC tablet, Take 1 tablet (40 mg total) by mouth in the morning., Disp: , Rfl: polyethylene glycol (GLYCOLAX) 17 gram/dose powder, Take 17 g by mouth in the morning., Disp: , Rfl: potassium chloride (KLOR-CON M 20) 20 MEQ CR tablet, Take 1 tablet (20 mEq total) by mouth in the morning. (Patient not taking: Reported on 05/09/2024), Disp: , Rfl: sennosides-docusate sodium (SENOKOT-S) 8.6-50 mg, Take 1 tablet by mouth once daily at bedtime., Disp: , Rfl: sevelamer (RENVELA) 800 mg tablet, Take 1 tablet (800 mg total) by mouth in the morning and 1 tablet (800 mg total) at noon and 1 tablet (800 mg total) in the evening. Take with meals., Disp: , Rfl: sulfamethoxazole-trimethoprim (BACTRIM DS) 800-160 mg per tablet, Take 1 tablet by mouth in the morning and 1 tablet before bedtime., Disp: , Rfl: REVIEW OF SYSTEMS: Negative for Fever/Chills, Numbness/Tingling, Skin changes. PHYSICAL EXAM (if able utilizing video phone option): General: Older than stated age and Morbidly Obese LOC: awake, alert, and drowsy Psych: Cooperative Station: Lying supine on stretcher Musculoskeletal: LEFT LOWER EXTREMITY: Inspection: No visible deformity of LE. IMAGING: I personally viewed X-ray images of left femur, which demonstrate: Stable appearance of left distal femur fracture without change in appearance of orthopedic implants including plate and screw fixation about the distal femur, progression of callus noted about the medial aspect of the fracture Radiology report as available at the time of this telephone visit: ASSESSMENT: Closed displaced supracondylar fracture with intracondylar extension of lower end of left femur with routine healing PLAN: Continue with activity as tolerated including ROM as able to LLE. Given patient's recent xray imaging, nonambulatory baseline and no reported thigh pain or concern with incisions, will allow her or rehabilitation facility to contact our office on an as needed basis moving forward. Continue medical and specialty management of her multiple medical comorbidities. Follow-up as needed. RJ LOPEZ PA-C 05/11/24 1201 documented in this encounter [facility] 05-08-2024 Instructions Formatting of th is note might be different from the original. Your surgery/procedure is scheduled at [facility] on 05/15/2024 at 830 am Arrival Time 630 am [facility] Address: [address] [place], [place] [address], [place] [address] Park in [address] Parking lot located on [facility]. Report to the Entrance B. Check in at the information desk the surgery. The waiting room located on the second floor. If you have any questions prior to surgery, please call Pre-Admission Clinic at [phone] between 7:30 am and 4:30 pm Tuesday through Tuesday. If you have questions the morning of surgery, please call the Pre-op Department at [phone]. Notify your SURGEON if you develop any illness such as a cold, cough, fever, sore throat, vomiting or are hospitalized between now and your surgery. Medication Instructions (Do not stop your medications without consulting the prescribing physician). Take the following medications the morning of surgery with a sip of water: may take xanax, gabapentin, levetira/keppra, levothyroxine, metoprolol, midodrine, oxycodone if needed Diabetic or Weight loss medications: HOLD n/a LAST DOSE n/a Take inhalers as prescribed the morning of surgery. Due to the risk associated with these medications. If these medications are not held per instruction below, your surgery is at an increased risk for cancellation. SGLT2 Medications- Hold 3 days prior to surgery: Jardiance, Empagliflozin, Farxiga, Dapagliflozin, Invokana, Canagliflozin, Trijardy, Synjardy GLP-1 Medications (Injection or Pill)- If taken daily hold day of surgery. If taken weekly, hold 1 week prior to surgery: Adlyxin, Byetta, Bydureon, Ozempic, Rybelsus,Trulicity, Victoza, Wegovy, Lixisenatide, Exenatide, Semaglutide, Dulaglutide, Liraglutide GIP/GLP-1(Injection or Pill)- If taken daily hold day of surgery. If taken weekly, hold 1 week prior to surgery: Mounjaro . Blood thinners: Please contact your prescribing physician regarding a stop/hold date for these medications: apixaban/ Eliquis, aspirin Diabetics: If you take insulin, contact your prescribing doctor for instructions on how to manage this the night before and the morning of surgery. Non-steriodal Anti-Inflammatory Drugs (NSAIDS)- Hold 3 days prior to surgery unless otherwise directed by your surgeon. Vitamins/Herbal Products: You may continue to take your prescribed vitamins such as potassium, iron, vitamin B, vitamin C, or multivitamin unless specifically instructed by your surgeon to hold. STOP taking all herbal products/teas one week prior to your surgery. Check with Dr Danielle instructions on stopping iron Marijuana: Stop marijuana 72 hours prior to surgery, stop CBD oil 48 hours prior to surgery. If you have been given bowel prep instructions by your surgeon, please call the surgeon's office with any questions about these instructions. What do I do the day of Surgery? Age 2 through adult - Stop all solids by midnight, You may have clear liquids up to 2 hours before surgery, unless otherwise instructed by your surgeon. Clear liquids are: water, sports drinks such as Gatorade or G2, or apple juice. You may NOT have: tube feedings, dairy products, alcoholic beverages, orange juice, or any liquids with solids or pulp in it. If applicable, shower again with CHG soap the morning of your surgery. If you received a green plastic bracelet, bring it with you the day of surgery and your nurse will put it on you. In order to help prevent infection post-operatively, you may be asked to use a CHG mouthwash when you arrive to the Pre-op area. Your nurse will provide instruction the morning of. What do I need to do to prepare for surgery? If you will be going home the same day as your surgery, arrange for an adult over [address] Riding in a bus or taxi by yourself is not permitted. You should not smoke or drink alcohol 24 hours before your surgery. Alcohol thins the blood and may cause bleeding problems during surgery. Smoking increases the risk of breathing problems after surgery. Do not use lotions, creams, powders, perfume, make up, cologne or after-shaves day of surgery. Remove ALL jewelry including wedding rings, body piercings (including dermal piercings ,hair extensions that contain metal, nail jordanian, make-up, and contact lens. You may brush your teeth the morning of surgery, but do not swallow the water. Wear your dentures and partial plates to the hospital (no adhesive). Shower the night the before What should I bring to the hospital? If you received a green plastic bracelet, bring it with you the day of surgery and your nurse will put it on you. Eyeglass or contact lens case If you will be spending the night, please bring personal care items and leave them in the car until you are taken to your room after surgery. Leave ALL valuables at home. If any of these instructions conflict with those you received from the surgeon, please seek clarification from your surgeon's office. DEEP BREATHING EXERCISES This exercise helps promote good air exchange and helps to prevent pneumonia after surgery. Breathe in slowly and deeply through the nose. Hold your breath for a few seconds and then exhale slowly through the mouth. Repeat this three times and then cough.Coughing helps to clear your lungs. If you have had a surgery with an incision into your abdomen or chest, press gently against your incision with a pillow or a folded blanket when you cough. Please be aware - it may not be reynolds to cough following some types of surgeries involving the eyes, ears, sinuses and throat. Always follow your doctor's instructions. LEG EXERCISE These exercises help promote good circulation and help to prevent blood clots after surgery. Point your toes to the ceiling and then point them to the wall. Do this slowly about 15-20 times. You may also move your feet in circles. Do the exercise that is most comfortable for you. If you have had surgery involving your shoulder or arm, we recommend you move your fingers. PRACTICING We ask that you begin practicing these exercises before your surgery. After surgery try to do both exercises at least every 2 hours during the day and early evening. SURGICAL SITE INFECTION PREVENTION What is a Surgical Site Infection? Infection can happen to the area of the body where surgery is done. This is called a surgical site infection (SSI). A SSI does not happen very often. Can SSIs be treated? Antibiotics are used to treat SSI. Some patients may need another surgery to treat the infection. The doctor will discuss treatment options with you. What are some of the things that hospitals are doing to prevent SSIs? Soap and water or alcohol hand rub are used before and after caring for each patient. Special soap is used to clean surgery workers hands and arms just before the surgery. Masks, gowns, gloves and hair covers are worn during the surgery to keep the area clean. Hair in the surgery area may be removed with clippers (not razors). A special soap that kills germs is used to clean the skin at the surgery site. Antibiotics may be given before the surgery starts. What can you do to prevent SSIs? Before surgery: You may be asked to shower or bathe with a special soap that kills germs the night before and the day of surgery. Use the soap as you were told. If you smoke, stop or cut down. Ask your doctor about ways to quit. Do not shave near where you will have surgery. Shaving can irritate the skin and make it easier to get and infection. After surgery: Be sure that the doctors and nurses clean their hands before and after touching you. Be sure your family and friends clean their hands before and after visiting you. Do not be afraid to remind them. * Care for your wound at home as told by your doctor or nurse * Call your doctor right away if you have fever, redness, increased pain, or drainage at the surgery site. Further questions? Contact the doctor, nurse or the Infection Prevention and Control department if you have any questions. PATIENT RIGHTS AND RESPONSIBILITIES As a patient at [facility], you have the right to: Receive medical care and be informed of who is taking care of you Be treated with dignity and respect Have a family member/product representative of choice and your physician notified of your admission Receive information and actively participate in decisions about your care and treatment Refuse care, treatment and services Decide who may provide your support and speak for you Access quaker and spiritual services Participate in ethical issues and questions about your care Receive private and confidential care Have appropriate assessment and management of your pain Know guest visitation restrictions or limitations Have an advance directive Access protective services Consent or refuse to participate in research studies or production or recordings, films or other images Have resolution of your complaints Receive information of hospital charges and payment methods Patient/patient product representative responsibilities are to: Provide information about health status to facilitate care, treatment and services Follow the treatment, plan, keep appointments and speak up when you do not understand the plan Respect the rights of other patients and healthcare personnel Follow organizational rules and regulations that support quality care and a safe environment Fulfill financial obligations as promptly as possible [facility] 05-08-2024 Miscellaneous Notes Called [place] facility spoke with supervisor spring up Moni loyd fdc info is requested states will fax. Request for fdc info faxed to facility. Preadmission instructions for surgery on 05/15/2024 at 830 am at [facility], faxed to facility with confirmation received. Your surgery/procedure is scheduled at [facility] on 05/15/2024 at 830 am Arrival Time 630 am [facility] Address: [address] [place] [address] in [address] Parking lot located on [facility]. Report to the Entrance B. Check in at the information desk the surgery. The waiting room located on the second floor. If you have any questions prior to surgery, please call Pre-Admission Clinic at [phone] between 7:30 am and 4:30 pm Tuesday through Tuesday. If you have questions the morning of surgery, please call the Pre-op Department at [phone]. Notify your SURGEON if you develop any illness such as a cold, cough, fever, sore throat, vomiting or are hospitalized between now and your surgery. Medication Instructions (Do not stop your medications without consulting the prescribing physician). Take the following medications the morning of surgery with a sip of water: may take xanax, gabapentin, levetira/keppra, levothyroxine, metoprolol, midodrine, oxycodone if needed Diabetic or Weight loss medications: HOLD n/a LAST DOSE n/a Take inhalers as prescribed the morning of surgery. Due to the risk associated with these medications. If these medications are not held per instruction below, your surgery is at an increased risk for cancellation. SGLT2 Medications- Hold 3 days prior to surgery: Jardiance, Empagliflozin, Farxiga, Dapagliflozin, Invokana, Canagliflozin, Trijardy, Synjardy GLP-1 Medications (Injection or Pill)- If taken daily hold day of surgery. If taken weekly, hold 1 week prior to surgery: Adlyxin, Byetta, Bydureon, Ozempic, Rybelsus,Trulicity, Victoza, Wegovy, Lixisenatide, Exenatide, Semaglutide, Dulaglutide, Liraglutide GIP/GLP-1(Injection or Pill)- If taken daily hold day of surgery. If taken weekly, hold 1 week prior to surgery: Mary . Blood thinners: Please contact your prescribing physician regarding a stop/hold date for these medications: apixaban/ Eliquis, aspirin Diabetics: If you take insulin, contact your prescribing doctor for instructions on how to manage this the night before and the morning of surgery. Non-steriodal Anti-Inflammatory Drugs (NSAIDS)- Hold 3 days prior to surgery unless otherwise directed by your surgeon. Vitamins/Herbal Products: You may continue to take your prescribed vitamins such as potassium, iron, vitamin B, vitamin C, or multivitamin unless specifically instructed by your surgeon to hold. STOP taking all herbal products/teas one week prior to your surgery. Check with Dr Danielle instructions on stopping iron Marijuana: Stop marijuana 72 hours prior to surgery, stop CBD oil 48 hours prior to surgery. If you have been given bowel prep instructions by your surgeon, please call the surgeon's office with any questions about these instructions. What do I do the day of Surgery? Age 2 through adult - Stop all solids by midnight, You may have clear liquids up to 2 hours before surgery, unless otherwise instructed by your surgeon. Clear liquids are: water, sports drinks such as Gatorade or G2, or apple juice. You may NOT have: tube feedings, dairy products, alcoholic beverages, orange juice, or any liquids with solids or pulp in it. If applicable, shower again with CHG soap the morning of your surgery. If you received a green plastic bracelet, bring it with you the day of surgery and your nurse will put it on you. In order to help prevent infection post-operatively, you may be asked to use a CHG mouthwash when you arrive to the Pre-op area. Your nurse will provide instruction the morning of. What do I need to do to prepare for surgery? If you will be going home the same day as your surgery, arrange for an adult over [address] Riding in a bus or taxi by yourself is not permitted. You should not smoke or drink alcohol 24 hours before your surgery. Alcohol thins the blood and may cause bleeding problems during surgery. Smoking increases the risk of breathing problems after surgery. Do not use lotions, creams, powders, perfume, make up, cologne or after-shaves day of surgery. Remove ALL jewelry including wedding rings, body piercings (including dermal piercings ,hair extensions that contain metal, nail jordanian, make-up, and contact lens. You may brush your teeth the morning of surgery, but do not swallow the water. Wear your dentures and partial plates to the hospital (no adhesive). Shower the night the before What should I bring to the hospital? If you received a green plastic bracelet, bring it with you the day of surgery and your nurse will put it on you. Eyeglass or contact lens case If you will be spending the night, please bring personal care items and leave them in the car until you are taken to your room after surgery. Leave ALL valuables at home. If any of these instructions conflict with those you received from the surgeon, please seek clarification from your surgeon's office. DEEP BREATHING EXERCISES This exercise helps promote good air exchange and helps to prevent pneumonia after surgery. Breathe in slowly and deeply through the nose. Hold your breath for a few seconds and then exhale slowly through the mouth. Repeat this three times and then cough.Coughing helps to clear your lungs. If you have had a surgery with an incision into your abdomen or chest, press gently against your incision with a pillow or a folded blanket when you cough. Please be aware - it may not be reynolds to cough following some types of surgeries involving the eyes, ears, sinuses and throat. Always follow your doctor's instructions. LEG EXERCISE These exercises help promote good circulation and help to prevent blood clots after surgery. Point your toes to the ceiling and then point them to the wall. Do this slowly about 15-20 times. You may also move your feet in circles. Do the exercise that is most comfortable for you. If you have had surgery involving your shoulder or arm, we recommend you move your fingers. PRACTICING We ask that you begin practicing these exercises before your surgery. After surgery try to do both exercises at least every 2 hours during the day and early evening. SURGICAL SITE INFECTION PREVENTION What is a Surgical Site Infection? Infection can happen to the area of the body where surgery is done. This is called a surgical site infection (SSI). A SSI does not happen very often. Can SSIs be treated? Antibiotics are used to treat SSI. Some patients may need another surgery to treat the infection. The doctor will discuss treatment options with you. What are some of the things that hospitals are doing to prevent SSIs? Soap and water or alcohol hand rub are used before and after caring for each patient. Special soap is used to clean surgery workers hands and arms just before the surgery. Masks, gowns, gloves and hair covers are worn during the surgery to keep the area clean. Hair in the surgery area may be removed with clippers (not razors). A special soap that kills germs is used to clean the skin at the surgery site. Antibiotics may be given before the surgery starts. What can you do to prevent SSIs? Before surgery: You may be asked to shower or bathe with a special soap that kills germs the night before and the day of surgery. Use the soap as you were told. If you smoke, stop or cut down. Ask your doctor about ways to quit. Do not shave near where you will have surgery. Shaving can irritate the skin and make it easier to get and infection. After surgery: Be sure that the doctors and nurses clean their hands before and after touching you. Be sure your family and friends clean their hands before and after visiting you. Do not be afraid to remind them. * Care for your wound at home as told by your doctor or nurse * Call your doctor right away if you have fever, redness, increased pain, or drainage at the surgery site. Further questions? Contact the doctor, nurse or the Infection Prevention and Control department if you have any questions. PATIENT RIGHTS AND RESPONSIBILITIES As a patient at [facility], you have the right to: Receive medical care and be informed of who is taking care of you Be treated with dignity and respect Have a family member/product representative of choice and your physician notified of your admission Receive information and actively participate in decisions about your care and treatment Refuse care, treatment and services Decide who may provide your support and speak for you Access quaker and spiritual services Participate in ethical issues and questions about your care Receive private and confidential care Have appropriate assessment and management of your pain Know guest visitation restrictions or limitations Have an advance directive Access protective services Consent or refuse to participate in research studies or production or recordings, films or other images Have resolution of your complaints Receive information of hospital charges and payment methods Patient/patient product representative responsibilities are to: Provide information about health status to facilitate care, treatment and services Follow the treatment, plan, keep appointments and speak up when you do not understand the plan Respect the rights of other patients and healthcare personnel Follow organizational rules and regulations that support quality care and a safe environment Fulfill financial obligations as promptly as possible documented in this encounter [facility] 05-08-2024 Nurse Note Called [facility] spoke with supervisor spring up Moni loyd fdc info is requested states will fax. Request for fdc info faxed to facility. [facility] 05-08-2024 Nurse Note Preadmission instructions for surgery on 05/15/2024 at 830 am at [facility], faxed to facility with confirmation received. [facility] 05-07-2024 Miscellaneous Notes Spoke with Preeti, one of the nurses at [facility]. Reminded her of the upcoming video visit and asked if patient had completed her xray. She states that another nurse, Santa, was working on that, and she would call me if any questions. I faxed orders and appt reminder to [phone]. documented in this encounter [facility] 05-07-2024 Telephone encounter Note Spoke with Preeti, one of the nurses at [facility]. Reminded her of the upcoming video visit and asked if patient had completed her xray. She states that another nurse, Santa, was working on that, and she would call me if any questions. I faxed orders and appt reminder to [phone]. [facility] 05-02-2024 Telephone encounter Note Requested Prescriptions Signed Prescriptions Disp Refills oxyCODONE (Roxicodone) 5 MG immediate release tablet 90 tablet 0 Sig: Take 1 tablet (5 mg) by mouth in the morning and 1 tablet (5 mg) in the evening and 1 tablet (5 mg) before bedtime. Authorizing Provider: DOMINGO TOBIAS [facility] 05-02-2024 Miscellaneous Notes Requested Prescriptions Signed Prescriptions Disp Refills oxyCODONE (Roxicodone) 5 MG immediate release tablet 90 tablet 0 Sig: Take 1 tablet (5 mg) by mouth in the morning and 1 tablet (5 mg) in the evening and 1 tablet (5 mg) before bedtime. Authorizing Provider: DOMINGO TOBIAS documented in this encounter [facility] 04-24-2024 Instructions Formatting of th is note might be different from the original. Your surgery/procedure is scheduled at [facility] on April 27 at 1130 am Arrival Time 930 am [facility] Address: [address] [place] [address], [facility] [address] in the Emergency Center Parking lot. Report to the front office attendant in the Emergency/Surgery Registration lobby of the hospital. Notify your SURGEON if you develop any illness such as a cold, cough, fever, sore throat, vomiting or are hospitalized between now and your surgery. Please call Pre-Admission Clinic at [phone] if you have any questions prior to surgery. For questions the morning of surgery, call the Pre-op Department at [phone]. Medication Instructions (Do not stop your medications without consulting the prescribing physician). Take the following medications the morning of surgery with a sip of water: midodrine if needed, metoprolol, levothyroxine, pantoprazole, oxycodone if needed, levetira/keppra, breathing treatments as needed Diabetic or Weight loss medications: HOLD n/a LAST DOSE n/a Take inhalers as prescribed the morning of surgery. Due to the risk associated with these medications. If these medications are not held per instruction below, your surgery is at an increased risk for cancellation SGLT2 Medications- Hold 3 days prior to surgery: Jardiance, Empagliflozin, Farxiga, Dapagliflozin, Invokana, Canagliflozin, Trijardy, Synjardy GLP-1 Medications (Injection or Pill)- If taken daily hold day of surgery. If taken weekly, hold 1 week prior to surgery: Adlyxin, Byetta, Bydureon, Ozempic, Rybelsus,Trulicity, Victoza, Wegovy, Lixisenatide, Exenatide, Semaglutide, Dulaglutide, Liraglutide GIP/GLP-1(Injection or Pill)- If taken daily hold day of surgery. If taken weekly, hold 1 week prior to surgery: Mounjaro . Blood thinners: Please contact your prescribing physician regarding a stop/hold date for these medications. Medications such as Coumadin, Heparin, Aspirin, Plavix, Eliquis, Pradaxa Diabetics: If you take insulin, contact your prescribing doctor for instructions on how to manage this the night before and the morning of surgery. Non-steriodal Anti-Inflammatory Drugs (NSAIDS)- Hold 3 days prior to surgery unless otherwise directed by your surgeon. Vitamins/Herbal Products: You may continue to take your prescribed vitamins such as potassium, iron, vitamin B, vitamin C, or multivitamin unless specifically instructed by your surgeon to hold. STOP taking all herbal products/teas one week prior to your surgery. Marijuana: Stop marijuana 72 hours prior to surgery, stop CBD oil 48 hours prior to surgery. If you have been given bowel prep instructions by your surgeon, please call the surgeon's office with any questions about these instructions. What do I do the day of Surgery? Age 2 through adult - Stop all solids by midnight, You may have clear liquids up to 2 hours before surgery, unless otherwise instructed by your surgeon Clear liquids are: water, sports drinks such as Gatorade or G2, or apple juice. You may NOT have: tube feedings, dairy products, alcoholic beverages, orange juice, or any liquids with solids or pulp in it If applicable, shower again with CHG soap the morning of your surgery. If you received a green plastic bracelet, bring it with you the day of surgery and your nurse will put it on you. What do I need to do to prepare for surgery? If you will be going home the same day as your surgery, arrange for an adult over [address] Riding in a bus or taxi by yourself is not permitted. You should not smoke or drink alcohol 24 hours before your surgery. Smoking increases the risk of breathing problems after surgery. Alcohol thins the blood and may cause bleeding problems during surgery If you have been assigned JAIR Education by your surgeon's office, please complete this education prior to your surgery. For questions regarding JAIR education, reach out to your surgeons office. If you have been given a prescription for occupational, physical or speech therapy, please set up these appointments before your procedure. If you would like to schedule therapy at a [facility] facility, please call [phone] ([phone]). Do not use lotions, creams, powders, perfume, make up, cologne or after-shaves day of surgery. Remove ALL jewelry including wedding rings, body piercings, hair extensions that contain metal, nail jordanian, make-up, and contact lens. You may brush your teeth the morning of surgery, but do not swallow the water. Wear your dentures and partial plates to the hospital (no adhesive). Shower the night the before with an antibacterial soap such as Dial. if applicable, use the CHG (chlorhexidine gluconate) soap or wipes. Please be advised, [facility] has transitioned to a cashless payment system. What should I bring to the hospital? If you received a green plastic bracelet, bring it with you the day of surgery and your nurse will put it on you. Eyeglass or contact lens case If you will be spending the night, please bring personal care items and leave them in the car until you are taken to your room after surgery. Leave ALL valuables at home. If any of these instructions conflict with those you recieved from the surgeon, please seek clarification from your surgeon's office. DEEP BREATHING EXERCISES This exercise helps promote good air exchange and helps to prevent pneumonia after surgery. Breathe in slowly and deeply through the nose. Hold your breath for a few seconds and then exhale slowly through the mouth. Repeat this three times and then cough. Coughing helps to clear your lungs. If you have had a surgery with an incision into your abdomen or chest, press gently against your incision with a pillow or a folded blanket when you cough. Please be aware - it may not be reynolds to cough following some types of surgeries involving the eyes, ears, sinuses and throat. Always follow your doctor's instructions. LEG EXERCISES These exercises help promote good circulation and help to prevent blood clots after surgery. Point your toes to the ceiling and then point them to the wall. Do this slowly about 15-20 times. You may also move your feet in circles. Do the exercise that is most comfortable for you. If you have had surgery involving your shoulder or arm, we recommend you move your fingers. PRACTICING We ask that you begin practicing these exercises before your surgery. After surgery try to do both exercises at least every 2 hours during the day and early evening. SURGICAL SITE INFECTION AND PREVENTION What is a Surgical Site Infection? Infection can happen to the area of the body where surgery is done. This is called a surgical site infection (SSI). A SSI does not happen very often. Can SSIs be treated? Antibiotics are used to treat SSI. Some patients may need another surgery to treat the infection. The doctor will discuss treatment options with you. What are some of the things that hospitals are doing to prevent SSIs? Soap and water or alcohol hand rub are used before and after caring for each patient.Special soap is used to clean surgery workers hands and arms just before the surgery. Masks, gowns, gloves and hair covers are worn during the surgery to keep the area clean. Hair in the surgery area may be removed with clippers (not razors). A special soap that kills germs is used to clean the skin at the surgery site. Antibiotics may be given before the surgery starts. What can you do to prevent SSIs? Before surgery: You may be asked to shower or bathe with a special soap that kills germs the night before and the day of surgery. Use the soap as you were told. If you smoke, stop or cut down. Ask your doctor about ways to quit. Do not shave near where you will have surgery. Shaving can irritate the skin and make it easier to get and infection. After surgery: Be sure that the doctors and nurses clean their hands before and after touching you. Be sure your family and friends clean their hands before and after visiting you. Do not be afraid to remind them. * Care for your wound at home as told by your doctor or nurse * Call your doctor right away if you have fever, redness, increased pain, or drainage at the surgery site. Further questions? Contact the doctor, nurse or the Infection Prevention and Control department if you have any questions. PATIENT RIGHTS AND RESPONSIBILITIES As a patient at [facility], you have the right to: Receive medical care and be informed of who is taking care of you Be treated with dignity and respect Have a family member/product representative of choice and your physician notified of your admission Receive information and actively participate in decisions about your care and treatment Refuse care, treatment and services Decide who may provide your support and speak for you Access quaker and spiritual services Participate in ethical issues and questions about your care Receive private and confidential care Have appropriate assessment and management of your pain Know guest visitation restrictions or limitations Have an advance directive Access protective services Consent or refuse to participate in research studies or production or recordings, films or other images Have resolution of your complaints Receive information of hospital charges and payment methods Patient/patient product representative responsibilities are to: Provide information about health status to facilitate care, treatment and services Follow the treatment, plan, keep appointments and speak up when you do not understand the plan Respect the rights of other patients and healthcare personnel Follow organizational rules and regulations that support quality care and a safe environment Fulfill financial obligations as promptly as possible [facility] 04-24-2024 Miscellaneous Notes Preadmission testing verify that patient is a resident [facility], request of information faxed to facility with confirmation received for surgery on the April 27, 2024 at 1:30 am. Facility called [facility], spoke to Alessia, she confirmed eliquis and aspirin last dose on 04/24/2023 when notified to hold. Fax information for pre op instructions for Preadmission testing with confirmation received with surgery on 04/27/2024 at [facility]. [facility] [facility] on April 27 at 1130 am Arrival Time 930 am [facility] Address: [address] [place] [address], [facility], [facility] [place] in the Emergency Center Parking lot. Report to the front office attendant in the Emergency/Surgery Registration lobby of the hospital. Notify your SURGEON if you develop any illness such as a cold, cough, fever, sore throat, vomiting or are hospitalized between now and your surgery. Please call Pre-Admission Clinic at [phone] if you have any questions prior to surgery. For questions the morning of surgery, call the Pre-op Department at [phone]. Medication Instructions (Do not stop your medications without consulting the prescribing physician). Take the following medications the morning of surgery with a sip of water: midodrine if needed, metoprolol, levothyroxine, pantoprazole, oxycodone if needed, levetira/keppra, breathing treatments as needed Diabetic or Weight loss medications: HOLD n/a LAST DOSE n/a Take inhalers as prescribed the morning of surgery. Due to the risk associated with these medications. If these medications are not held per instruction below, your surgery is at an increased risk for cancellation SGLT2 Medications- Hold 3 days prior to surgery: Jardiance, Empagliflozin, Farxiga, Dapagliflozin, Invokana, Canagliflozin, Trijardy, Synjardy GLP-1 Medications (Injection or Pill)- If taken daily hold day of surgery. If taken weekly, hold 1 week prior to surgery: Adlyxin, Byetta, Bydureon, Ozempic, Rybelsus,Trulicity, Victoza, Wegovy, Lixisenatide, Exenatide, Semaglutide, Dulaglutide, Liraglutide GIP/GLP-1(Injection or Pill)- If taken daily hold day of surgery. If taken weekly, hold 1 week prior to surgery: Israelunjaro . Blood thinners: Please contact your prescribing physician regarding a stop/hold date for these medications. Medications such as Coumadin, Heparin, Aspirin, Plavix, Eliquis, Pradaxa Diabetics: If you take insulin, contact your prescribing doctor for instructions on how to manage this the night before and the morning of surgery. Non-steriodal Anti-Inflammatory Drugs (NSAIDS)- Hold 3 days prior to surgery unless otherwise directed by your surgeon. Vitamins/Herbal Products: You may continue to take your prescribed vitamins such as potassium, iron, vitamin B, vitamin C, or multivitamin unless specifically instructed by your surgeon to hold. STOP taking all herbal products/teas one week prior to your surgery. Marijuana: Stop marijuana 72 hours prior to surgery, stop CBD oil 48 hours prior to surgery. If you have been given bowel prep instructions by your surgeon, please call the surgeon's office with any questions about these instructions. What do I do the day of Surgery? Age 2 through adult - Stop all solids by midnight, You may have clear liquids up to 2 hours before surgery, unless otherwise instructed by your surgeon Clear liquids are: water, sports drinks such as Gatorade or G2, or apple juice. You may NOT have: tube feedings, dairy products, alcoholic beverages, orange juice, or any liquids with solids or pulp in it If applicable, shower again with CHG soap the morning of your surgery. If you received a green plastic bracelet, bring it with you the day of surgery and your nurse will put it on you. What do I need to do to prepare for surgery? If you will be going home the same day as your surgery, arrange for an adult over [address] Riding in a bus or taxi by yourself is not permitted. You should not smoke or drink alcohol 24 hours before your surgery. Smoking increases the risk of breathing problems after surgery. Alcohol thins the blood and may cause bleeding problems during surgery If you have been assigned JAIR Education by your surgeon's office, please complete this education prior to your surgery. For questions regarding JAIR education, reach out to your surgeons office. If you have been given a prescription for occupational, physical or speech therapy, please set up these appointments before your procedure. If you would like to schedule therapy at a [facility] facility, please call [phone] ([phone]). Do not use lotions, creams, powders, perfume, make up, cologne or after-shaves day of surgery. Remove ALL jewelry including wedding rings, body piercings, hair extensions that contain metal, nail jordanian, make-up, and contact lens. You may brush your teeth the morning of surgery, but do not swallow the water. Wear your dentures and partial plates to the hospital (no adhesive). Shower the night the before with an antibacterial soap such as Dial. if applicable, use the CHG (chlorhexidine gluconate) soap or wipes. Please be advised, [facility] has transitioned to a cashless payment system. What should I bring to the hospital? If you received a green plastic bracelet, bring it with you the day of surgery and your nurse will put it on you. Eyeglass or contact lens case If you will be spending the night, please bring personal care items and leave them in the car until you are taken to your room after surgery. Leave ALL valuables at home. If any of these instructions conflict with those you recieved from the surgeon, please seek clarification from your surgeon's office. DEEP BREATHING EXERCISES This exercise helps promote good air exchange and helps to prevent pneumonia after surgery. Breathe in slowly and deeply through the nose. Hold your breath for a few seconds and then exhale slowly through the mouth. Repeat this three times and then cough. Coughing helps to clear your lungs. If you have had a surgery with an incision into your abdomen or chest, press gently against your incision with a pillow or a folded blanket when you cough. Please be aware - it may not be reynolds to cough following some types of surgeries involving the eyes, ears, sinuses and throat. Always follow your doctor's instructions. LEG EXERCISES These exercises help promote good circulation and help to prevent blood clots after surgery. Point your toes to the ceiling and then point them to the wall. Do this slowly about 15-20 times. You may also move your feet in circles. Do the exercise that is most comfortable for you. If you have had surgery involving your shoulder or arm, we recommend you move your fingers. PRACTICING We ask that you begin practicing these exercises before your surgery. After surgery try to do both exercises at least every 2 hours during the day and early evening. SURGICAL SITE INFECTION AND PREVENTION What is a Surgical Site Infection? Infection can happen to the area of the body where surgery is done. This is called a surgical site infection (SSI). A SSI does not happen very often. Can SSIs be treated? Antibiotics are used to treat SSI. Some patients may need another surgery to treat the infection. The doctor will discuss treatment options with you. What are some of the things that hospitals are doing to prevent SSIs? Soap and water or alcohol hand rub are used before and after caring for each patient.Special soap is used to clean surgery workers hands and arms just before the surgery. Masks, gowns, gloves and hair covers are worn during the surgery to keep the area clean. Hair in the surgery area may be removed with clippers (not razors). A special soap that kills germs is used to clean the skin at the surgery site. Antibiotics may be given before the surgery starts. What can you do to prevent SSIs? Before surgery: You may be asked to shower or bathe with a special soap that kills germs the night before and the day of surgery. Use the soap as you were told. If you smoke, stop or cut down. Ask your doctor about ways to quit. Do not shave near where you will have surgery. Shaving can irritate the skin and make it easier to get and infection. After surgery: Be sure that the doctors and nurses clean their hands before and after touching you. Be sure your family and friends clean their hands before and after visiting you. Do not be afraid to remind them. * Care for your wound at home as told by your doctor or nurse * Call your doctor right away if you have fever, redness, increased pain, or drainage at the surgery site. Further questions? Contact the doctor, nurse or the Infection Prevention and Control department if you have any questions. PATIENT RIGHTS AND RESPONSIBILITIES As a patient at [facility], you have the right to: Receive medical care and be informed of who is taking care of you Be treated with dignity and respect Have a family member/product representative of choice and your physician notified of your admission Receive information and actively participate in decisions about your care and treatment Refuse care, treatment and services Decide who may provide your support and speak for you Access quaker and spiritual services Participate in ethical issues and questions about your care Receive private and confidential care Have appropriate assessment and management of your pain Know guest visitation restrictions or limitations Have an advance directive Access protective services Consent or refuse to participate in research studies or production or recordings, films or other images Have resolution of your complaints Receive information of hospital charges and payment methods Patient/patient product representative responsibilities are to: Provide information about health status to facilitate care, treatment and services Follow the treatment, plan, keep appointments and speak up when you do not understand the plan Respect the rights of other patients and healthcare personnel Follow organizational rules and regulations that support quality care and a safe environment Fulfill financial obligations as promptly as possible documented in this encounter [facility] 04-24-2024 Nurse Note Preadmission testing verify that patient is a resident ay [facility], request of information faxed to facility with confirmation received for surgery on the April 27, 2024 at 1:30 am. [facility] 04-24-2024 Nurse Note Facility called [facility], spoke to [place], she confirmed eliquis and aspirin last dose on 04/24/2023 when notified to hold. Fax information for pre op instructions for Preadmission testing with confirmation received with surgery on 04/27/2024 at [facility]. [facility] 04-13-2024 Telephone encounter Note Requested Prescriptions Signed Prescriptions Disp Refills ALPRAZolam (Xanax) 0.5 MG tablet 90 tablet 3 Sig: Take 1 tablet (0.5 mg) by mouth in the morning and 1 tablet (0.5 mg) in the evening and 1 tablet (0.5 mg) before bedtime. Authorizing Provider: DOMINGO TOBIAS [facility] 04-13-2024 Miscellaneous Notes Requested Prescriptions Signed Prescriptions Disp Refills ALPRAZolam (Xanax) 0.5 MG tablet 90 tablet 3 Sig: Take 1 tablet (0.5 mg) by mouth in the morning and 1 tablet (0.5 mg) in the evening and 1 tablet (0.5 mg) before bedtime. Authorizing Provider: DOMINGO TOBIAS documented in this encounter [facility] 04-11-2024 Telephone encounter Note Requested Prescriptions Signed Prescriptions Disp Refills oxyCODONE (Roxicodone) 5 MG immediate release tablet 90 tablet 0 Sig: Take 1 tablet (5 mg) by mouth in the morning and 1 tablet (5 mg) in the evening and 1 tablet (5 mg) before bedtime. Authorizing Provider: DOMINGO TOBIAS patient. [facility] 04-11-2024 Miscellaneous Notes Requested Prescriptions Signed Prescriptions Disp Refills oxyCODONE (Roxicodone) 5 MG immediate release tablet 90 tablet 0 Sig: Take 1 tablet (5 mg) by mouth in the morning and 1 tablet (5 mg) in the evening and 1 tablet (5 mg) before bedtime. Authorizing Provider: DOMINGO TOBIAS patient. documented in this encounter [facility] 03-15-2024 Note [facility] Gastroenterolog y Follow-Up Patient Visit CHIEF COMPLAINT Chief Complaint Patient presents with Follow-up Hospital Follow Up: Patient states she has a hernia that the hospital will not touch. She has been having stomach issues and also had a wound that will not heal and needs to see Infectious Disease HISTORY OF PRESENT ILLNESS: Matthew Neal is a 59 y.o. female with PMHx of ESRD on HD, chronic respiratory failure requiring tracheostomy and chronic ventilation, obesity (BMI 70) recent hip fracture, who presented to the ED 12/26/2023 from her long-term acute care facility for anemia. Patient is somewhat of a poor historian; however, history was obtained from chart review. Patient presented from her LTAC to the [place] ED due to low hemoglobin (reportedly 5.5). Per review of records, patient was reportedly hemoccult-positive. When discussed with the ICU resident, rectal examination had not been performed; however, per nursing staff there was concern for sunil vaginal bleeding. Patient has had no prior EGD or colonoscopy. Upon arrival to the ED, patient's hemoglobin was 5.5 (prior baseline 7.7-9.7). She received 3 units PRBCs with improvement to 7.8. Of note, patient had CT abdomen and pelvis at outside hospital that showed distended endometrium, with concern for an 8.4 cm left adnexal cystic lesion. Upon discussion with nursing staff, patient had no evidence of melena or hematochezia since hospital presentation. OBGYN was consulted given there was concern for ongoing vaginal bleeding. There was concern for malignant versus benign process for vaginal bleeding. Patient was taken for hysteroscopy D&C and IUD placement 12/21/2023 per OBGYN. Recommendation was for patient to follow-up in the GI clinic for consideration of outpatient EGD and colonoscopy. INTERVAL HISTORY 03/15/2024: Date of Telehealth Visit: 03/15/2024 The visit was conducted [id number] with the use of audio and video technology using HIPAA approved iWarda System between patient and the provider for a virtual visit. Verbal consent to provide and bill this service was obtained on: 03/15/24 Patient Location: Nursing Facility Patient presents today via telehealth for hospital follow-up. She states that since discharge she is has had no overt GI bleeding in the form of hematemesis, coffee-ground emesis, melena, or hematochezia. Endorses continued intermittent vaginal bleeding however. Most recent hemoglobin 9.7 (02/03/2024). PREVIOUS LABS/IMAGING/ENDOSCOPY: CT abdomen pelvis wo IV contrast 01/20/2024: IMPRESSION: 1. Uterus is anteverted. There is presence of the intrauterine contraceptive device in the lower uterine segment. Previously noted prominent endometrial canal is no longer identified. 2. There is a stable 4 cm left ovarian cyst. No free fluid is seen in the cul-de-sac. 3. There is a left-sided ventral hernia adjacent to the hernia repair surgery with presence of the bowel loop. No high-grade obstruction is seen. 4. There is a 2.5 cm right renal cyst. No evidence of calcified calculi or hydronephrosis. 5. Status post cholecystectomy. 6. No free fluid in the abdomen and pelvis. 7. Atelectasis in the left lower lung. HISTORY: Problem list: Patient Active Problem List Diagnosis Acute on chronic diastolic (congestive) heart failure (CMS/HCC) Altered mental status Atherosclerotic heart disease of [place] coronary artery without angina pectoris Bilateral edema of lower extremity C. 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) Metabolic acidosis Morbid obesity (CMS/HCC) NSTEMI (non-ST elevated myocardial infarction) (CMS/HCC) Acute worsening of stage 4 chronic kidney disease (CMS/HCC) Respiratory failure (CMS/HCC) Seizure disorder (CMS/HCC) Tracheostomy in place (CMS/HCC) Type 2 diabetes mellitus (CMS/HCC) Ventilator dependence (CMS/HCC) Volume overload Wound infection Abdominal wall skin ulcer, with fat layer exposed (CMS/HCC) Fall Surgical wound present Past Medical History: Past Medical History: Diagnosis Date Cholelithiasis Chronic kidney disease Hypertension Past Surgical History: Past Surgical History: Procedure Laterality Date APPENDECTOMY CHOLECYSTECTOMY HERNIA REPAIR TRACHEOSTOMY TUBE PLACEMENT FAMILY HISTORY: Family History Family history unknown: Yes SOCIAL HISTORY: Social History Tobacco Use Smoking status: Former Types: Cigarettes Smokeless tobacco: Never Substance Use Topics Alcohol use: Never Drug use: Never ALLERGIES: Iodinated contrast media, Morphine, Fentanyl, Gadolinium-containing contrast media, and Piperacillin-tazobactam Current Medications: Current Outpatient Medications: acetaminophen (Tylenol) 325 mg tablet, Take 650 mg by mouth every 6 (six) hours if needed., Disp: , Rfl: albuterol 0.63 mg/3 mL nebulizer s (more content not included)... [facility] 03-07-2024 Note Subjective Patient ID: Matthew Neal is a 59 y.o. female who presents for Follow-up (Anabel is here today for follow up: Infected prosthetic mesh of abdominal wall, s/p umbilical hernia repair with mesh- 1 mth f/u). HPI Patient is complaining of umbilical wound pain and drainage. Review of Systems Constitutional: Positive for fatigue. Respiratory: Positive for shortness of breath. Cardiovascular: Negative. Gastrointestinal: Positive for diarrhea. Genitourinary: Positive for vaginal pain. Neurological: Positive for dizziness and headaches. Hematological: Bruises/bleeds easily. Objective Visit Vitals BP 106/69 Pulse 104 Temp 37.1 ???C (98.8 ???F) (Oral) Physical Exam Constitutional: Appearance: She is obese. HENT: Head: Atraumatic. Cardiovascular: Rate and Rhythm: Normal rate. Pulmonary: Effort: Pulmonary effort is normal. Abdominal: General: Abdomen is flat. Palpations: Abdomen is soft. Comments: Umbilical wound is 2 cm x 2 cm x 1 cm. 1 piece of Prolene suture was removed. Exposed mesh was debrided. Musculoskeletal: Cervical back: Neck supple. Neurological: Mental Status: She is alert. Assessment/Plan Umbilical wound Umbilical herniorrhaphy mesh infection Umbilical wound was debrided. Umbilical wound was packed with Xeroform. Recommend wet-to-dry dressing change daily. No diagnosis found. No orders of the defined types were placed in this encounter. No results found for this or any previous visit (from the past 36 hour(s)). No follow-ups on file. [facility] 02-24-2024 Miscellaneous Notes Santos Aggarwal, thought this was MYCHART VIDEO visit, did not know it was in person. Patient Observer will call back to reschedule. documented in this encounter [facility] 02-24-2024 Telephone encounter Note Santos Aggarwal, thought this was MYCHART VIDEO visit, did not know it was in person. Patient Observer will call back to reschedule. [facility] 02-07-2024 Note Subjective Patient ID: Matthew Neal is a 58 y.o. female who presents for Follow-up (/Infected prosthetic mesh of abdominal wall, s/p umbilical hernia repair with/mesh- 1 mth f/u//). HPI 58 years old morbid obesity white female is visiting for infected umbilical herniorrhaphy mesh. Her BMI is 47. She is tolerating to regular diet, normal bowel movement. Review of Systems Constitutional: Positive for appetite change. Respiratory: Positive for shortness of breath. Gastrointestinal: Positive for abdominal distention, abdominal pain and nausea. Neurological: Positive for headaches. All other systems reviewed and are negative. Objective There were no vitals taken for this visit. Physical Exam Constitutional: Comments: In wheelchair HENT: Head: Atraumatic. Cardiovascular: Rate and Rhythm: Normal rate. Pulmonary: Effort: Pulmonary effort is normal. Abdominal: General: Abdomen is flat. Palpations: Abdomen is soft. Comments: Umbilical hernia raphe mesh exposure, purulent discharge. Musculoskeletal: Cervical back: Neck supple. Neurological: Mental Status: She is alert. Assessment/Plan Umbilical hernia raphe mesh exposure Sharp debridement of exposed mesh and necrotic tissue. Continue wet-to-dry dressing change, follow-up in 1 month. No diagnosis found. No orders of the defined types were placed in this encounter. No results found for this or any previous visit (from the past 36 hour(s)). No follow-ups on file. [facility] 02-07-2024 Telephone encounter Note Rx for norco ineffective. Oxycodone 5 mg q 4 hrs prn added today. Sent to [facility] for this [facility] patient. #180 tabs. [facility] 02-07-2024 Miscellaneous Notes Rx for norco ineffective. Oxycodone 5 mg q 4 hrs prn added today. Sent to [facility] for this [facility] patient. #180 tabs. documented in this encounter [facility] 01-30-2024 Miscellaneous Notes Contract: TED [facility] Rm [id number] Consult Renal DiseaseRe replacement of dialysis catheter Contract: Ted Gann paged Dr Herr to facility documented in this encounter [facility] 01-30-2024 Telephone encounter Note Contract: TED [facility] Rm [id number] Consult Renal DiseaseRe replacement of dialysis catheter [facility] 01-30-2024 Telephone encounter Note Contract: Ted Gann paged Dr Herr to facility [facility] 01-30-2024 Miscellaneous Notes Contract: 91 - New consult for management of patients vent. To be paged out at 7am Contract: [address] Blue on his cell phone- consult information given to MD documented in this encounter [facility] 01-30-2024 Telephone encounter Note Contract: 91 - New consult for management of patients vent. To be paged out at 7am [facility] 01-30-2024 Telephone encounter Note Contract: [address] Blue on his cell phone- consult information given to MD [facility] 01-20-2024 History of Present illness Narrative Matthew Fátima Date of visit: 01/20/2024 Date of : 1965 Age: 58 y.o. Patient Active Problem List Diagnosis Dyspnea NSTEMI (non-ST elevated myocardial infarction) ([facility]) Infected prosthetic mesh of abdominal wall ([facility]) Morbid obesity with BMI of 60.0-69.9, adult ([facility]) End stage renal disease ([facility]) Ventilator dependence ([facility]) Coronary artery disease Diabetes 1.5, managed as type 1 ([facility]) Fall Surgical wound present Abdominal wall skin ulcer, with fat layer exposed ([facility]) Shock ([facility]) Shock, unspecified ([facility]) Closed displaced supracondylar fracture with intracondylar extension of lower end of left femur with routine healing Allergies Allergen Reactions Iodinated Contrast Media Shortness Of Breath Morphine Shortness Of Breath Fentanyl Patient gets burning and abdominal cramps Gadolinium-Containing Contrast Media Zosyn [Piperacillin-Tazobactam] Current Outpatient Medications Medication Sig Dispense Refill acetaminophen (TYLENOL) 325 mg tablet Take 2 tablets (650 mg total) by mouth every 6 (six) hours as needed for fever. albuterol (PROVENTIL,VENTOLIN) 2.5 mg /3 mL (0.083 %) nebulizer solution Inhale 3 mL (2.5 mg total) by nebulization every 4 (four) hours as needed for shortness of breath. ALPRAZolam (XANAX) 0.5 mg tablet Take 1 tablet (0.5 mg total) by mouth in the morning and 1 tablet (0.5 mg total) before bedtime. apixaban (ELIQUIS) 2.5 mg tablet Take 1 tablet (2.5 mg total) by mouth in the morning and 1 tablet (2.5 mg total) before bedtime. aspirin 81 mg Take 1 tablet (81 mg total) by mouth in the morning. atorvastatin (LIPITOR) 20 mg tablet Take 1 tablet (20 mg total) by mouth in the morning. bumetanide (BUMEX) 2 mg tablet Take 1 tablet (2 mg total) by mouth daily. HOLD until follow-up with Nephrology. cholecalciferol (VITAMIN D3) 1,000 units tablet Take 2 tablets (2,000 Units total) by mouth in the morning. Indications: low vitamin D levels. cyclobenzaprine (FLEXERIL) 10 mg tablet Take 1 tablet (10 mg total) by mouth every 6 (six) hours. dicyclomine (BENTYL) 10 mg capsule Take 1 capsule (10 mg total) by mouth 3 (three) times a day. epoetin beta, methoxy peg (MIRCERA) 75 mcg/0.3 mL syringe Inject 75 mcg as directed every 14 (fourteen) days. ferrous sulfate 325 (65 FE) mg tablet Take 1 tablet (325 mg total) by mouth daily with breakfast. 30 tablet 0 folic acid (FOLVITE) 1 mg tablet Take 1 tablet (1 mg total) by mouth in the morning. 30 tablet 3 folic acid-B eezv-H-zcgcp-zinc (DIALYVITE) 3-70-15 mg-mcg-mg tablet Take 1 tablet by mouth in the evening. gabapentin (NEURONTIN) 100 mg capsule Take 1 capsule (100 mg total) by mouth 3 (three) times a day. insulin glargine (LANTUS, SEMGLEE) 100 unit/mL (3 mL) insulin pen Inject 32 Units under the skin in the morning and 32 Units in the evening. Inject before meals. insulin lispro (HumaLOG) 100 unit/mL insulin pen [...] mg/dL, give 10 units. 15 mL 12 insulin lispro (HumaLOG) 100 unit/mL insulin pen Inject 2-8 Units under the skin nightly. Bedtime hyperglycemia dosing. For glucose 201-250 mg/dL, give 2 units. For glucose 251-300 mg/dL, give 4 units. For glucose 301-350 mg/dL, give 6 units. For glucose 351-400 mg/dL, give 8 units. 15 mL 12 levETIRAcetam (KEPPRA) 1000 mg tablet Take 1 tablet (1,000 mg total) by mouth in the morning and 1 tablet (1,000 mg total) before bedtime. 60 tablet 0 levothyroxine (SYNTHROID, LEVOTHROID) 175 MCG tablet Take 1 tablet (175 mcg total) by mouth in the morning. midodrine (PROAMATINE) 10 mg tablet Take 1 tablet (10 mg total) by mouth as needed (Hemodialysis - PRN at initiation and midway through dialysis session). 90 tablet 3 mupirocin (BACTROBAN) 2 % ointment Apply 1 Application topically in the morning. naloxone (NARCAN) 4 mg/actuation spray,non-aerosol nasal spray Administer 1 spray (4 mg total) into alternating nostrils as needed for opioid reversal. 3 each 3 pantoprazole (PROTONIX) 40 mg EC tablet Take 1 tablet (40 mg total) by mouth in the morning. polyethylene glycol (GLYCOLAX) 17 gram/dose powder Take 17 g by mouth in the morning. potassium chloride (KLOR-CON M 20) 20 MEQ CR tablet Take 1 tablet (20 mEq total) by mouth in the morning. sennosides-docusate sodium (SENOKOT-S) 8.6-50 mg Take 1 tablet by mouth once daily at bedtime. No current facility-administered medications for this visit. No chief complaint on file. History of Present Illness Patient history of multivessel disease, atrial fibrillation/flutter, diabetes,, seizure disorder, end-stage renal disease on, hypothyroidism, morbid obesity, chronic respiratory failure/tracheostomy/COPD. Here for follow-up visit post discharge from the hospital after being seen by our team for preop cardiovascular risk assessment for planned D&C. Patient brought in today accompanied by her respiratory therapist from senior care facility. Stated that she is feeling generally well apart from having some abdominal discomfort and diarrhea. Has follow-up with GI coming up. Stated her breathing has been stable. On 3 L oxygen all the time. Denied any chest pain. Denied any palpitations or dizziness. Sleeps reclined at baseline. Has chronic leg edema that is been stable. Mainly wheelchair-bound. Denied any recurrent rectal bleeding or vaginal bleed since discharge from the hospital. Past Medical History: Diagnosis Date Anemia CHF (congestive heart failure) ([facility]) Diabetes ([facility]) Morbid obesity ([facility]) NSTEMI (non-ST elevated myocardial infarction) ([facility]) Respiratory failure ([facility]) No data recorded No data recorded No data recorded Past Surgical History: Procedure Laterality Date HYSTEROSCOPY DILATION CURETTAGE N/A 12/21/2023 Performed by Wesley Kim MD at [facility] INSERTION INTRAUTERINE DEVICE N/A 12/21/2023 Performed by Wesley Kim MD at [facility] OPEN REDUCTION INTERNAL FIXATION FEMUR Left 11/08/2023 Performed by Jagdish Vasquez MD at [facility] No family history on file. Social History Socioeconomic History Marital status: Spouse name: Not on file Number of children: Not on file Years of education: Not on file Highest education level: Not on file Occupational History Not on file Tobacco Use Smoking status: Never Smokeless tobacco: Never Vaping Use Vaping status: Never Used Substance and Sexual Activity Alcohol use: Not Currently Drug use: Never Sexual activity: Defer Other Topics Concern Caffeine Use Yes Social History Narrative Not on file Social Determinants of Health Financial Resource Strain: Not on file Food Insecurity: No Food Insecurity (12/17/2023) Hunger Screening Food Insecurity - Worry: Never True Food Insecurity - Inability: Never True Transportation Needs: No Transportation Needs (12/17/2023) PRAPARE - Transportation Lack of Transportation (Medical): No Lack of Transportation (Non-Medical): No Physical Activity: Inactive (09/14/2023) Received from [facility] Exercise Vital Sign Days of Exercise per Week: 0 days Minutes of Exercise per Session: 0 min Stress: No Stress Concern Present (09/14/2023) Received from [facility] [employer] [place] [employer] - Occupational Stress Questionnaire Feeling of Stress : Not at all Social Connections: Not on file Interpersonal Safety: Not At Risk (01/04/2024) Received from [facility] Humiliation, Afraid, Rape, and Kick questionnaire Fear of Current or Ex-Partner: No Emotionally Abused: No Physically Abused: No Sexually Abused: No Housing Instability: Low Risk (12/17/2023) Housing Instability Housing Instability: No Review of Systems Review of Systems Respiratory: Negative for cough, hemoptysis and wheezing. Gastrointestinal: Negative for abdominal pain, change in bowel habit and hematochezia. Genitourinary: Negative for dysuria and hematuria. Neurological: Negative for focal weakness, headaches and paresthesias. CARDIOVASCULAR: Please review HPI. Physical Examination General appearance: Alert, oriented and cooperative. In no acute distress. Skin: Warm and dry to touch. Head: Normocephalic, without obvious abnormality, atraumatic. Ears, Nose, Mouth, Throat: Throat clear without erythema or exudate. Dentition intact. Eyes: Conjunctivae unremarkable, EOM intact. Neck: No JVD, No carotid bruit. Neck supple, trachea midline. Respiratory: Clear to auscultation bilaterally, no use of accessory muscles. Cardiovascular: RRR with normal S1 and S2 with no murmurs. Gastrointestinal: Soft, non-tender. Bowel sounds normal. Musculoskeletal: No peripheral edema. Neurologic: Oriented to time, person and place, affect appropriate. No focal/major motor defects noted. Psychiatric: Appropriate mood, memory and judgement. VITAL SIGNS: There were no vitals taken for this visit. No orders of the defined types were placed in this encounter. There are no discontinued medications. [id number] Score: 3 3.2% Stroke risk per year, 4.6% risk of stroke/TIA/systemic embolism IMPRESSIONS/PLAN 1. Chronic heart failure with preserved ejection fraction (HFpEF) ([facility]) 2. Atrial fibrillation/flutter ([facility]) 3. Hx of coronary artery disease 4. Primary hypertension Previous cardiac related labs and test results were reviewed and discussed with the patient. Chronic respiratory failure / COPD/ Tracheostomy Chronic HFpEF -normal EF TTE 12/2023 Atrial fibrillation/flutter on low dose Eliquis Hx of multivessel CAD Hypertension Type 1 diabetes Hx GI bleeding Hx of vaginal bleeding Hx of seizure disorder Hypothyroidism ESRD -HD Former smoker Morbid obesity, BMI 82 Patient here for follow-up visit post discharge from the hospital. Stable from a cardiac standpoint. Started on Toprol XL 25 mg daily for rate control. Recommended taking midodrine 10 mg t.i.d. for blood pressure support as patient has not been taking it regularly. No change in the rest of her cardiac meds. Diuretics and fluid volume management per Nephrology as patient is under dialysis. Follow-up in 4 months or sooner if needed. Patient to call us with any cardiac questions or concerns. TODAYS ORDERS No orders of the defined types were placed in this encounter. FOLLOW UP No follow-ups on file. PCP: JULIÁN CONTI MD Referring Physician: Ratna Cornejo MD [address] [place] [address], [id number] [place] [address] documented in this encounter [facility] 01-19-2024 Miscellaneous Notes Called patient to remind them to bring their most current copy of their medication list with them to their appt. Patient verbalizes understanding. documented in this encounter [facility] 01-19-2024 Telephone encounter Note Called patient to remind them to bring their most current copy of their medication list with them to their appt. Patient verbalizes understanding. [facility] 01-16-2024 Note [facility] Coordinator rafael cruz with staff member, Moni Mcintyre at [facility]. She reports that patient is not interested in pursuing bariatric surgery at this time. Referral closed. [facility] 01-12-2024 Note [facility] Coordinator rafael cruz with staff member, Moni at [facility]. She reports that she is not sure that patient wants to pursue bariatric surgery at this time despite referral. She will confirm and call me back if patient chooses to move forward with seminar. [facility] 01-06-2024 History of Present illness Narrative Images from the original note were not included. ORTHOPAEDIC TELEMEDICINE VISIT NOTE: DATE OF VISIT: 01/06/2024 This call is considered a telephone visit, which is to help assess your current healthcare needs and to determine the appropriate care you may require. This visit may be a billable service through your insurance company. Do you consent to moving forward with this telephone visit? Yes Length of the Call/Visit : 17 minutes 11:25 - 11:42am i. [id number] - 5-10 minutes ii. [id number] - 11-20 minutes iii. 22610 - 21-30 minutes CHIEF COMPLAINT / VISIT REASON: Chief Complaint Patient presents with Left Knee - Follow-up HISTORY OF PRESENT ILLNESS: Matthew Neal is a 58 y.o. female presents 01/06/2024 for follow-up of her Closed displaced supracondylar fracture with intracondylar extension of lower end of left femur with routine healing Morbid obesity with BMI of 60.0-69.9, adult (CMS-HCC). . Date of Surgery: 11/08/23. She is 8 week(s) status post operative stabilization left distal femur fracture. She was evaluated today via telehealth visit from her nursing facility. She previously had left femur x-rays performed on December 29. She is accompanied by nursing today. She notes pain in her left leg however has not recently been working with therapy as she was recently admitted to the hospital due to low hemoglobin secondary to vaginal bleeding. 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 She has been discharged back to her previous facility. She states she is on hydrocodone every 6 hours as needed for pain. She states that Tylenol does not help her pain at all therefore she does not take it. She continues on Eliquis for chronic anticoagulation. She does take vitamin-D and calcium currently. Social History Occupational History Not on file Tobacco Use Smoking status: Never Smokeless tobacco: Never Vaping Use Vaping status: Never Used Substance and Sexual Activity Alcohol use: Not Currently Drug use: Never Sexual activity: Defer ALLERGIES: Allergies Allergen Reactions Iodinated Contrast Media Shortness Of Breath Morphine Shortness Of Breath Fentanyl Patient gets burning and abdominal cramps Gadolinium-Containing Contrast Media Zosyn [Piperacillin-Tazobactam] HOME MEDICATIONS: Current Outpatient Medications: acetaminophen (TYLENOL) 325 mg tablet, Take 2 tablets (650 mg total) by mouth every 6 (six) hours as needed for fever., Disp: , Rfl: albuterol (PROVENTIL,VENTOLIN) 2.5 mg /3 mL (0.083 %) nebulizer solution, Inhale 3 mL (2.5 mg total) by nebulization every 4 (four) hours as needed for shortness of breath., Disp: , Rfl: ALPRAZolam (XANAX) 0.5 mg tablet, Take 1 tablet (0.5 mg total) by mouth in the morning and 1 tablet (0.5 mg total) before bedtime., Disp: , Rfl: apixaban (ELIQUIS) 2.5 mg tablet, Take 1 tablet (2.5 mg total) by mouth in the morning and 1 tablet (2.5 mg total) before bedtime., Disp: , Rfl: aspirin 81 mg, Take 1 tablet (81 mg total) by mouth in the morning., Disp: , Rfl: atorvastatin (LIPITOR) 20 mg tablet, Take 1 tablet (20 mg total) by mouth in the morning., Disp: , Rfl: bumetanide (BUMEX) 2 mg tablet, Take 1 tablet (2 mg total) by mouth daily. HOLD until follow-up with Nephrology., Disp: , Rfl: cholecalciferol (VITAMIN D3) 1,000 units tablet, Take 2 tablets (2,000 Units total) by mouth in the morning. Indications: low vitamin D levels., Disp: , Rfl: cyclobenzaprine (FLEXERIL) 10 mg tablet, Take 1 tablet (10 mg total) by mouth every 6 (six) hours., Disp: , Rfl: dicyclomine (BENTYL) 10 mg capsule, Take 1 capsule (10 mg total) by mouth 3 (three) times a day., Disp: , Rfl: epoetin beta, methoxy peg (MIRCERA) 75 mcg/0.3 mL syringe, Inject 75 mcg as directed every 14 (fourteen) days., Disp: , Rfl: ferrous sulfate 325 (65 FE) mg tablet, Take 1 tablet (325 mg total) by mouth daily with breakfast., Disp: 30 tablet, Rfl: 0 folic acid (FOLVITE) 1 mg tablet, Take 1 tablet (1 mg total) by mouth in the morning., Disp: 30 tablet, Rfl: 3 folic acid-B ofsk-W-cwnvs-zinc (DIALYVITE) 3-70-15 mg-mcg-mg tablet, Take 1 tablet by mouth in the evening., Disp: , Rfl: gabapentin (NEURONTIN) 100 mg capsule, Take 1 capsule (100 mg total) by mouth 3 (three) times a day., Disp: , Rfl: insulin glargine (LANTUS, SEMGLEE) 100 unit/mL (3 mL) insulin pen, Inject 32 Units under the skin in the morning and 32 Units in the evening. Inject before meals., Disp: , Rfl: insulin lispro (HumaLOG) 100 unit/mL insulin pen, Inject 2-10 Units under the skin in the morning and 2-10 Units at noon and 2-10 Units in the evening. Inject with meals. For glucose 151-200 mg/dL, give 2 units. For glucose 201-250 mg/dL, give 4 units. For glucose 251-300 mg/dL, give 6 units. For glucose 301-350 mg/dL, give 8 units. For glucose 351-400 mg/dL, give 10 units., Disp: 15 mL, Rfl: 12 insulin lispro (HumaLOG) 100 unit/mL insulin pen, Inject 2-8 Units under the skin nightly. Bedtime hyperglycemia dosing. For glucose 201-250 mg/dL, give 2 units. For glucose 251-300 mg/dL, give 4 units. For glucose 301-350 mg/dL, give 6 units. For glucose 351-400 mg/dL, give 8 units., Disp: 15 mL, Rfl: 12 levETIRAcetam (KEPPRA) 1000 mg tablet, Take 1 tablet (1,000 mg total) by mouth in the morning and 1 tablet (1,000 mg total) before bedtime., Disp: 60 tablet, Rfl: 0 levothyroxine (SYNTHROID, LEVOTHROID) 175 MCG tablet, Take 1 tablet (175 mcg total) by mouth in the morning., Disp: , Rfl: midodrine (PROAMATINE) 10 mg tablet, Take 1 tablet (10 mg total) by mouth as needed (Hemodialysis - PRN at initiation and midway through dialysis session)., Disp: 90 tablet, Rfl: 3 mupirocin (BACTROBAN) 2 % ointment, Apply 1 Application topically in the morning., Disp: , Rfl: naloxone (NARCAN) 4 mg/actuation spray,non-aerosol nasal spray, Administer 1 spray (4 mg total) into alternating nostrils as needed for opioid reversal., Disp: 3 each, Rfl: 3 pantoprazole (PROTONIX) 40 mg EC tablet, Take 1 tablet (40 mg total) by mouth in the morning., Disp: , Rfl: polyethylene glycol (GLYCOLAX) 17 gram/dose powder, Take 17 g by mouth in the morning., Disp: , Rfl: potassium chloride (KLOR-CON M 20) 20 MEQ CR tablet, Take 1 tablet (20 mEq total) by mouth in the morning., Disp: , Rfl: sennosides-docusate sodium (SENOKOT-S) 8.6-50 mg, Take 1 tablet by mouth once daily at bedtime., Disp: , Rfl: REVIEW OF SYSTEMS: Negative for Fever/Chills, Numbness/Tingling, Skin changes. PHYSICAL EXAM (if able utilizing video phone option): General: Well-nourished, Well-developed, Age appropriate, and Morbidly Obese, trach in place LOC: awake, alert, and oriented Orientation: oriented to person, place, time, and recent events Psych: Cooperative Station: Lying supine on hospital bed Musculoskeletal: LEFT LOWER EXTREMITY: Inspection: lateral knee and thigh incisions appear overall benign without evidence of open wounds, erythema or active drainage CV/Vasc: warm, pink, well-perfused foot & toes IMAGING: I personally viewed X-ray images of left femur, which demonstrate: overall stable alignment of the distal femoral fracture with intra-articular extension however images are slightly compromised secondary to rotation likely related to patient's body habitus especially in the AP view. No evidence of periprosthetic fracture, orthopedic implants are in place and appear not to be broken or backing out, no halos present, fracture line still visible Radiology report as available at the time of this telephone visit: ASSESSMENT: Closed displaced supracondylar fracture with intracondylar extension of lower end of left femur with routine healing Morbid obesity with BMI of 60.0-69.9, adult ([facility]) PLAN: Would continue with nonweightbearing left lower extremity at this time. Okay to continue with therapy to work on hip, knee and ankle range of motion as tolerated. In regards to patient's complaint about current pain medication regiment, she may be experiencing some weakness or soreness related to atrophy from her recent hospital stay. Also she is 8 weeks out from operative stabilization therefore we would attempt to transition away from narcotic medication per national narcotic prescribing guidelines. I advised her in the nurse present to bring up her concerns with the house provider to see if medication can be adjusted or increased frequency to help see if symptoms can be improved. I did encourage her to continue with efforts at use of nonnarcotic medication on a consistent basis to help with multimodal pain regiment. Continue vitamin-D and calcium supplementation. Continue Eliquis for chronic anticoagulation. Follow-up 1 month(s) with new radiographs of left knee and left femur. RJ LOPEZ PA-C 01/06/24 1310 documented in this encounter [facility] 01-05-2024 Note [facility] Coordinator call ed patient regarding referral received for Bariatric Program. Her contact phone number listed is to [facility]. M with Admissions line requesting a return call to discuss referral status and need to attend seminar virtually prior to pursing scheduling initial consultation with bariatric surgeon. Return number given. Will await return call and/or follow up in the near future. [facility] 01-04-2024 Note Subjective Patient ID: Matthew Neal is a 58 y.o. female who presents for Follow-up (Matthew is here today for Infected prosthetic mesh of abdominal wall, s/p umbilical hernia repair with mesh- 1 mth f/u). HPI 58 years old morbid obesity white female is visiting for infected umbilical herniorrhaphy mesh. Her BMI is 47. She is tolerating to regular diet, normal bowel movement. Review of Systems Constitutional: Negative. Respiratory: Positive for shortness of breath. Cardiovascular: Negative. Gastrointestinal: Positive for abdominal pain and diarrhea. Genitourinary: Negative. Skin: Positive for wound. Neurological: Negative. Objective Visit Vitals BP 83/53 (BP Location: Right wrist, Patient Position: Sitting) Pulse (!) 122 Temp 36.7 ???C (98.1 ???F) (Oral) Physical Exam Constitutional: Appearance: She is obese. Comments: In wheelchair HENT: Head: Atraumatic. Cardiovascular: Rate and Rhythm: Normal rate. Pulmonary: Effort: Pulmonary effort is normal. Abdominal: General: Abdomen is flat. Palpations: Abdomen is soft. Comments: Umbilical hernia wound is 2.5 cm x 2.5 cm, small amount of exposed polypropylene mesh. Musculoskeletal: Cervical back: Neck supple. Neurological: Mental Status: She is alert. Assessment/Plan Morbid obesity, BMI 47. Referred to Bariatric surgery. Infected umbilical hernia [place] mesh.: Mesh debridement was performed. Continue wet-to-dry dressing change. No diagnosis found. No orders of the defined types were placed in this encounter. No results found for this or any previous visit (from the past 36 hour(s)). No follow-ups on file. [facility] 12-29-2023 Miscellaneous Notes Please ask the following questions to the new patient that you are schedulin. IS THIS DUE TO AN ACCIDENT? -[place] Staff stated no 2. IS THIS WORKER'S COMP? PLEASE VERIFY IF THIS IS WORKERS COMP AND DOCUMENT (We do not accept any new workers comp cases) -no 3. WHAT INSURANCE? -Medicaid 4. HAVE YOU EVER BEEN SEEN BY A NEUROLOGIST BEFORE? IF YES, WHO AND WHEN? IS THIS A SECOND OPINION? -unsure 5. ANY CHANCE OF NOW OR BEFORE YOUR APPOINTMENT? -n/a 6. OFFERED JAMIE FOR SOONER APPOINTMENT? -no patient to be scheduled in resident clinic 7. PATIENT IS SCHEDULED ON/WITH: -02/24/[address] Mckeon 8. WHO CALLED TO SCHEDULE APPOINTMENT? -[facility] documented [facility] encounter [facility] 12-29-2023 Telephone encounter Note Please ask the following questions to the new patient that you are schedulin. IS THIS DUE TO AN ACCIDENT? -[place] Staff stated no 2. IS THIS WORKER'S COMP? PLEASE VERIFY IF THIS IS WORKERS COMP AND DOCUMENT (We do not accept any new workers comp cases) -no 3. WHAT INSURANCE? -Medicaid 4. HAVE YOU EVER BEEN SEEN BY A NEUROLOGIST BEFORE? IF YES, WHO AND WHEN? IS THIS A SECOND OPINION? -unsure 5. ANY CHANCE OF NOW OR BEFORE YOUR APPOINTMENT? -n/a 6. OFFERED JAMIE FOR SOONER APPOINTMENT? -no patient to be scheduled in resident clinic 7. PATIENT IS SCHEDULED ON/WITH: -02/24/[address] Mckeon 8. WHO CALLED TO SCHEDULE APPOINTMENT? -[facility] staff [facility] 12-28-2023 Telephone encounter Note Rx for alprazolam and norco are sent for this [facility] today. [facility] 12-28-2023 Miscellaneous Notes Rx for alprazolam and norco are sent for this [facility] patient today. documented in this encounter [facility] 12-27-2023 Miscellaneous Notes I spoke with Asmita from this patient's senior care facility. Reviewed EMB results with Asmita. EMB was without endometrial cells and endocervical cells had HPV effect. This patient had IUD placed under anesthesia. She needs imaging to confirm IUD placement. She is too obese for transabdominal US probe to image her uterus and the transvaginal probe she does not tolerate while awake. Therefore, CT abdomen and pelvis ordered to confirm IUD placement. Diagnosis Plan 1. PMB (postmenopausal bleeding) CT abdomen and pelvis without contrast 2. Pelvic pain CT abdomen and pelvis without contrast Wesley Kim MD [facility] 12/27/2023 2:52 PM documented in this encounter [facility] 12-27-2023 Telephone encounter Note I spoke with Asmita from this patient's senior care facility. Reviewed EMB results with Asmita. EMB was without endometrial cells and endocervical cells had HPV effect. This patient had IUD placed under anesthesia. She needs imaging to confirm IUD placement. She is too obese for transabdominal US probe to image her uterus and the transvaginal probe she does not tolerate while awake. Therefore, CT abdomen and pelvis ordered to confirm IUD placement. Diagnosis Plan 1. PMB (postmenopausal bleeding) CT abdomen and pelvis without contrast 2. Pelvic pain CT abdomen and pelvis without contrast Wesley Kim MD [facility] 12/27/2023 2:52 PM [facility] 12-27-2023 Miscellaneous Notes Patient Matthew Neal( 1965) would like to do a video visit for her upcoming visit 01/24/2024. If it is possible, We would need to contact [facility] ([phone]) to confirm with them. Thank you. documented in this encounter [facility] 12-27-2023 Telephone encounter Note Patient Matthew Neal( 1965) would like to do a video visit for her upcoming visit 01/24/2024. If it is possible, We would need to contact [facility] ([phone]) to confirm with them. Thank you. [facility] 12-19-2023 Miscellaneous Notes ----- Message from Clyde Sherman MD sent at 12/19/2023 11:28 AM EDT ----- Regarding: frano wup in 4-6 weeks Hi Maribell, Please schedule this patient in 4-6 weeks of discharge with Dr. Mckeon. Thanks HP 1st attempt: Shank Faker contacted patient's nursing home, [facility], as this is her primary phone number. Rn Home Health on the line stated that keno writer / runner contacted the incorrect phone number and she is not able to schedule - correct number was provided for [phone]. 2nd attempt: Shank Faker contacted patient's care facility, [facility], once more and left a voicemail offering to schedule her in with our clinic for a hospital follow up appointment as we have received a message from our clinical staff requesting to see patient in office. Shank Faker provided callback number for scheduling or to address any questions or concerns they may have. documented in this encounter [facility] 12-19-2023 Telephone encounter Note ----- Message from Clyde Sherman MD sent at 12/19/2023 11:28 AM EDT ----- Regarding: kirstin carrion in 4-6 weeks Hi Maribell, Please schedule this patient in 4-[address] weeks of discharge [address] Dr. Mckeon. Thanks HP [facility] 12-19-2023 Telephone encounter Note 1st attempt: Shank Faker contacted patient's nursing home, [facility], as this is her primary phone number. Rn Home Health on the line stated that keno writer / runner contacted the incorrect phone number and she is not able to schedule - correct number was provided for [phone]. [facility] 12-19-2023 Telephone encounter Note 2nd attempt: Shank Faker contacted patient's care facility, [facility], once more and left a voicemail offering to schedule her in with our clinic for a hospital follow up appointment as we have received a message from our clinical staff requesting to see patient in office. Shank Faker provided callback number for scheduling or to address any questions or concerns they may have. [facility] 12-18-2023 Miscellaneous Notes Contract: RODRIGUEZ Cui [facility] Re bradycardia [id number] Secure chat message sent to Juanita Stephenson CNP documented in this encounter [facility] 12-18-2023 Telephone encounter Note Contract: RODRIGUEZ Cui [facility] Re bradycardia [id number] [facility] 12-18-2023 Telephone encounter Note Secure chat message sent to Juanita Stephenson CNP [facility] 12-18-2023 Miscellaneous Notes Contract: OCKishan Cui from [facility] New consult Surgical management Numerically paged DELIVERER OUTSIDE Onc resident to [place] documented in this encounter [facility] 12-18-2023 Telephone encounter Note Contract: OCKishan Cui from [facility] New consult Surgical management [facility] 12-18-2023 Telephone encounter Note Numerically paged DELIVERER OUTSIDE Onc resident to [place] [facility] 12-13-2023 Note Subjective Patient ID: Matthew Neal is a 58 y.o. female who presents for Follow-up (Matthew is here today for Infected prosthetic mesh of abdominal wall, s/p umbilical hernia repair with mesh- 1 mth f/u). HPI 58 years old morbid obesity white female had exposed umbilical hernia raphe mesh. I performed mesh debridement on November 01, 2023. She is coming back for follow-up. She denies of abdominal pain, fever or chills. Review of Systems Constitutional: Negative. Respiratory: Negative. Cardiovascular: Negative. Gastrointestinal: Negative. Skin: Positive for wound. Neurological: Negative. Hematological: Negative. Objective Visit Vitals BP (!) 82/45 (BP Location: Right wrist, Patient Position: Sitting) Pulse (!) 111 Temp 36.6 ???C (97.8 ???F) (Oral) Physical Exam Constitutional: Comments: In wheelchair HENT: Head: Atraumatic. Cardiovascular: Rate and Rhythm: Normal rate. Pulmonary: Effort: Pulmonary effort is normal. Abdominal: General: Abdomen is flat. Palpations: Abdomen is soft. Comments: Without umbilical cellulitis or abscess. Umbilical wound epithelialization is progressing. Small piece of the mesh is exposed, which was debrided. Musculoskeletal: Cervical back: Neck supple. Assessment/Plan Umbilical herniorrhaphy mesh exposure Wound debridement every month. Wet-to-dry dressing change with half-strength Dakin solution twice a day. No diagnosis found. No orders of the defined types were placed in this encounter. No results found for this or any previous visit (from the past 36 hour(s)). No follow-ups on file. [facility] 11-23-2023 History of Present illness Narrative Images from the original note were not included. INTERVAL Hx: Matthew Neal is a 58 y.o. female presents 11/24/2023 for follow-up of her Closed fracture of distal end of left femur with routine healing, unspecified fracture morphology, subsequent encounter. She is 2 week(s) status post ORIF left intra-articular distal femur fracture performed on 11/08/2023. Postoperatively she was advised to remain nonweightbearing left lower extremity, anticipated duration of 12 weeks. Of note patient is nonambulatory at baseline. She remains on Eliquis 2.5 mg twice daily for DVT prophylaxis. She presents to the office today for clinical check and suture removal. She is accompanied by transportation as well as respiratory therapist. She reports that she experiences some pain over the lateral aspect of her thigh. Pain is only minimally controlled with the use of oxycodone 5 mg. She was not been utilizing the Tylenol that has been ordered of the facility. She has not been initiated in physical therapy or occupational therapy at the facility. She denies numbness/tingling. PMHx, PSHx, FamHx: were reviewed during this visit. Social History Occupational History Not on file Tobacco Use Smoking status: Never Smokeless tobacco: Never Vaping Use Vaping status: Never Used Substance and Sexual Activity Alcohol use: Not Currently Drug use: Never Sexual activity: Defer MEDS & ALLERGIES: were reviewed at during this visit. ROS: Negative for Fever/Chills, Numbness/Tingling, Skin changes. PHYSICAL EXAM: Vitals: Temp 36.1 C (96.9 F) Ht 152.4 cm (5') Wt (!) 148.3 kg (326 lb 15.1 oz) BMI 63.85 kg/m General: Obese body habitus LOC: awake and alert Orientation: oriented to person, place, time, and recent events Psych: Cooperative Station: Seated in wheelchair Musculoskeletal: LEFT LOWER EXTREMITY: Inspection: Incision well approximated. [place] removed and Steri-Strips placed. There is moderate staple erythema present, however no erythema directly overlying the incision. No drainage. ROM: Able to tolerate gentle active range of motion of the knee and ankle Motor: baseline weak DF/PF. Extensor mechanism intact. Sensory: intact to light touch: Deep Peroneal, Superficial Peroneal, Saphenous, Sural nerves CV/Vasc: warm, pink, well-perfused foot & toes IMAGING: no imaging obtained at today's visit DIAGNOSIS: Closed fracture of distal end of left femur with routine healing, unspecified fracture morphology, subsequent encounter PLAN: Continue nonweightbearing left lower extremity. Patient was noted to be nonambulatory at baseline. Spoke with nurse Álvarez at [facility] to make aware of updated order sheet being faxed over to the facility to correct that patient should be nonweightbearing left lower extremity Orders given to facility to initiate physical therapy and occupational therapy for left lower extremity range of motion and strengthening as tolerated Initiate doxycycline 100 mg twice daily for 7 days for treatment of increased surrounding staple erythema. Facility given orders to renally dose as needed. Cristiane removed from incision and Steri-Strips placed. Patient okay to shower and allow water to run over incisions and allow Steri-Strips to fall off on their own. Initiate Tylenol 1000 mg every 8 hours Continue Eliquis 2.5 mg twice daily for DVT prophylaxis Facility given orders to obtain left femur x-ray 10 days prior to next follow up appointment to include AP and cross-table lateral views of the left femur and to send x-ray images on a disc or e-mail to our office prior to next follow up visit as patient's weight, body habitus, chronic nonambulatory status requires Henny lift in order to obtain images it isn't compatible with the cord left we have available in our office. Follow-up 4 week(s) with new radiographs of left femur. GRISEL MCGINNIS PA-C MEDICAL DECISION-MAKING Postop [facility] Grisel Mcginnis PA-C 11/24/23 1213 documented in this encounter [facility] 11-11-2023 Nurse Note Pt being discharged to [facility]. LDA's removed, report called to Jeanette @ [place]. PTN scheduled for 1829 transport. [facility] 11-11-2023 Nurse Note Pt being discharged to [place] [facility]. LDA's removed, report called to Jeanette @ [place]. PTN scheduled for 0 transport. documented in this encounter [facility] 11-11-2023 Progress note Formatting of t his note might be different from the original. DISCHARGE PLANNING NOTE Discharge order has been written to Discharge to Group Home Facility, per attending team. Transport set for 2129. Transport to [place] in [facility]. Facesheet, IP Mobile, and BLS and crit care Transport certs completed, signed by MD, put in discharge packet and left in patient's paper chart. CRF: CRF placed in discharge packet and sent to facility via [facility]: [facility] documentation not required for this discharge. Patient is a correction resident returning to correction care. Primary and studio operations engineer in charge Notified. Patient and the patient's family notified of final discharge plan. - Natalya Blanco RN 11/11/23 3:25 PM [facility] 11-11-2023 Miscellaneous Notes DISCHARGE PLANNING NOTE Discharge order has been written to Discharge to Group Home Facility, per attending team. Transport set for 2129. Transport to [place] in [facility]. Facesheet, IP Mobile, and BLS and crit care Transport certs completed, signed by , put in discharge packet and left in patient's paper chart. CRF: CRF placed in discharge packet and sent to facility via [facility]: [facility] documentation not required for this discharge. 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 Primary and studio operations engineer in charge Notified. Patient and the patient's family notified of final discharge plan. - Natalya Blanco RN 11/11/23 3:25 PM Problem: Safety Goal: Patient will be injury free during hospitalization Description: INTERVENTIONS: 1. Assess patient's risk for falls and implement fall prevention plan of care per policy 2. Provide and maintain a safe environment 3. Proper use of double Identifiers 4. Medication administration using the 5 rights 5. Hand hygiene 6. Specimens are labeled at the bedside 7. Instruct patient/ patient product representative about use of safety devices 8. Include patient/ patient product representative in decisions related to safety Outcome: Progressing Note: Evaluation of progress towards goal: Problem: Alternate Airway Goal: Tracheotomy/laryngectomy will be maintained safely Description: INTERVENTIONS 1. Keep resuscitation bag, mask, oxygen connection tubing, and extra tracheostomy at bedside; accompanying patient at all times 2. Obturator in plastic bag, readily available at bedside 3. Assess trach site 4. Utilize trach securing device and change as needed per policy 5. Support tubing to avoid pressure from drag of tubing 6. Provide trach care at least every 8 hrs and as needed 7. Change tracheostomy/inner cannula per policy as needed Outcome: Progressing Note: Evaluation of progress towards goal: Physical Therapy Pt not available for PT eval as she's getting dialysis. Occupational Therapy CANCEL - Deferred (pt getting dialysis, cont as able w/ OT eval) Problem: Pain Goal: Patient goal is pain score less than 4, able to rest, and participant in treatment plan as appropriate Description: INTERVENTIONS: 1. Encourage patient or legal product representative to report early pain and ask for pain medicine when needed 2. Assess pain using appropriate pain scale and include the scale used when documenting 3. Administer analgesics based on type and severity of pain and evaluate response within appropriate time frame 4. Implement non-pharmacological measures as appropriate and evaluate response 5. Consider cultural and social influences on pain and pain management 6. Notify LIP if interventions ineffective or patient reports new pain 7. Monitor vital signs including pulse ox, end-tidal CO2 based on pain intervention 8. Reassess pain per policy 9. Teach patient or legal product representative interventions for comforting Outcome: Progressing Note: Evaluation of progress towards goal: Denies pain Problem: Safety Goal: Patient will be injury free during hospitalization Description: INTERVENTIONS: 1. Assess patient's risk for falls and implement fall prevention plan of care per policy 2. Provide and maintain a safe environment 3. Proper use of double Identifiers 4. Medication administration using the 5 rights 5. Hand hygiene 6. Specimens are labeled at the bedside 7. Instruct patient/ patient product representative about use of safety devices 8. Include patient/ patient product representative in decisions related to safety Outcome: Progressing Note: Evaluation of progress towards goal: Safety maintained Respiratory Therapy Clinical Practice Guidelines Consult Clinical Practice Guidelines Ordered Consult Assessment: Consult, Broncho-pulmonary hygiene, Bronchodilator, Mechanical ventilator, Oxygen Oxygen Indications: Hypoxemia Broncho-pulmonary Hygiene Indications: Retained secretions or difficulty with clearance Broncho-pulmonary Hygiene Total: 1 Bronchodilator Indications: Bronchospasm/wheezing Bronchodilator Total: 1 Vital Signs BP: 99/61 Pulse: 113 Heart Rate Source: Monitor, Pulse Ox Resp: 16 SpO2: 98 % O2 Device: Trach In-situ FiO2 (%): 40 % EtCO2 (mmHg): 40 mmHg ETCO2 Alarm - High: 50 ETCO2 Alarm - Low: 20 Patient Position: Semi-fowlers Respiratory Assessment Assessment Type: Subsequent assessment Level of Consciousness: Alert Respiratory Pattern: Regular Chest Assessment: Chest expansion symmetrical Bilateral Breath Sounds: Clear, Diminished Cough Cough: None Suctioning Suction: Oral Oral Suctioning/Secretions Oral Suction Type: Oral Oral Suction Device: Soft tip Oral Secretion Amount: Small Oral Secretion Color: Clear Oral Secretion Consistency: Thin Oral Suction Tolerance: Tolerated well Oral Suctioning Adverse Effects: None Airway Suctioning/Secretions Airway Suction Type: (pt denied need for sx) Airway Suction Device : Inline Airway Secretion Amount: Small Airway Secretion Color: White Airway Secretion Consistency: Thick Airway Suction Tolerance: Tolerated well Airway Suctioning Adverse Effects: None Readings Vt Spontaneous (mL): 500 mL Vt (observed, mL): 0.3 mL Avea Vt Mandatory Exp (L): 0.34 Minute Ventilation (L/min): 8.59 L/min PIP Observed (cm H2O): 21 cm H2O Total Rate : 17 MAP (cm H2O): 13 CM H20 EtCO2 (mmHg): 40 mmHg I:E Readin:1.7 Dynamic Compliance (L/cm H2O): 39.05 L/cm H2O Patient Active Problem List Diagnosis Dyspnea NSTEMI (non-ST elevated myocardial infarction) (CMS-HCC) Infected prosthetic mesh of abdominal wall (CMS-HCC) Morbid obesity ([facility]) End stage renal disease ([facility]) Ventilator dependence ([facility]) Coronary artery disease Diabetes 1.5, 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 RT Reassessment Due In: 12 hours Mechanical Ventilator Broncho-Pulmonary Hygiene Breath Sounds Level 1: Slightly Diminished or clear Chest X-Ray Level 1: Possible signs of consolidation and/or atelectasis or clear Sputum Production Level 1: None or small amount of thin or watery secretions with suctioning History & Physical Level 1: None New onset of bronchitis or existing chronic pulmonary condition. * (not in an exacerbation) Patients Current Level & Intervention: Level 1: No BP hygiene indicated. Continue suctioning every 4 hours ----- Problem: Alternate Airway Goal: Tracheotomy/laryngectomy will be maintained safely Description: INTERVENTIONS 1. Keep resuscitation bag, mask, oxygen connection tubing, and extra tracheostomy at bedside; accompanying patient at all times 2. Obturator in plastic bag, readily available at bedside 3. Assess trach site 4. Utilize trach securing device and change as needed per policy 5. Support tubing to avoid pressure from drag of tubing 6. Provide trach care at least every 8 hrs and as needed 7. Change tracheostomy/inner cannula per policy as needed Outcome: Progressing Note: Evaluation of progress towards goal: Tracheostomy remains in place, pt binu CPAP 8/PS 12 without difficulty/complaints. Cont CPAP as binu. ETCO2/SaO2 WNL. Minimal secretions per trach. Ok to transfer to the Progressive unit with Vent. Cont oral care Q4hrs with oral care kit, Chlorhexidine BID with toothbrush. DISCHARGE PLANNING NOTE Case discussed in daily transition rounds and chart reviewed by CN. Discharge Plan remains: Return to [facility]. [facility] in [place] ready for patient's return: chronic vent/trach, non-ambulatory at baseline, dialyzes 5x/week in-house at her facility. Updated notes sent to [facility]. CN will continue to follow and is available should any further needs arise. - Natalya Blanco RN 11/10/23 2:00 PM Speech Therapy Videofluoroscopic Swallow Study Evaluation and Treatment Note Impressions Oral Phase: Mild-moderate Pharyngeal Phase: Mild, Moderate Functional Oral Intake Scale: Total PO with multiple consistencies requiring special prep Level 5 Minced & Moist (MM5) Diet with Level 3 Moderately Thick Liquids (MO3). Exam completed on full vent support with RT supervision. Pt will need full assistance with PO. Recommendations Diet Level: Level 5 Minced and Moist Liquid Level: Level 3 Moderately Thick Compensatory Strategies: Follow aspiration precautions, Small sips/bites, One sip/bite at a time Supervision/Positioning: Patient at 90 degress for all PO intake (including medication), Supervise all PO intake, Patient to remain upright 15 minutes after meals, Assist with feeding Medications: In applesauce/puree, Crushed Referrals: Dysphagia therapy, Shank Cutter Discharge Recommendations: Other (comment) (ongoing ST services) Plan Frequency: 2-3days/week Duration: until discharge Treatments/Modalities: Safety strategies, Oral motor treatment plan, Pharyngeal strengthening Need for skilled Speech Language Pathology Services to address deficits in feeding/swallowing due to a status decline resulting from fall. Patient reportedly fell out of bed at [facility] where she resides. Pt found to have comminuted distal femoral fx with extension into the intercondylar portion of the knee. Pt went to OR 11/07 for ORIF. Pt with chronic tracheostomy/vent support d/t respiratory failure. Reportedly pt with previous PEG, however has since been removed and pt reports that she was eating and drinking chopped foods/thin liquids prior to admission. Speech consulted to assess swallow function. Pt educated on purpose of exam, contrast administration, and procedural techniques prior to initiation of exam. Pt educated on diet recommendations, plan of care, and encouraged to use safety strategies in order to maintain safe PO intake following exam. Prognosis Services: Skilled ITALIAN TUTOR services to address above deficits Prognosis/Potential: Good Considerations: Age, Cognition, Previous level of function, Severity of impairments Assessment Baseline Assessment Respiratory Status: Tracheostomy, Ventilator, Cuffed, Inflated Allergies Marked As Reviewed: Complete Consistencies Tested Views: Lateral position Level 0 Thin: Spoon, Cup, Straw Level 2 Mildly Thick: Cup, Straw Level 3 Moderately Thick: Cup, Straw Level 4 Pureed: Spoon Level 6 Soft & Bite-Sized: Spoon Modified Barium Swallow Impairment Profile (MBSImP) Oral Impairment: Yes Component 1: Lip Closure: escape progressing to mid-chin Component 2: Tongue Control During Bolus Hold: posterior escape of less than half of bolus Component 3: Bolus Preparation/Mastication: disorganized chewing/mashing with solid pieces of bolus unchewed Component 4: Bolus Transport/Lingual Motion: repetitive/disorganized tongue motion Component 5: Oral Residue: residue collection on oral structures Component 6: Initiation of Pharyngeal Swallow: bolus head in pyriforms Pharyngeal Impairment: Yes Component 7: Soft Palate Elevation: no bolus between soft palate/posterior pharyngeal wall Component 8: Laryngeal Elevation: partial superior movement of thyroid cartilage/partial approximation of arytenoids to epiglottic petiole Component 9: Anterior Hyoid Excursion: partial anterior movement Component 10: Epiglottic Movement: partial inversion Component 11: Laryngeal Vestibular Closure - Height of the Swallow: incomplete, narrow column of contrast/air in laryngeal vestibule Component 12: Pharyngeal Stripping Wave: present - diminished Component 13: Pharyngeal Contraction (A/P view only): could not be determined due to logistical reasons not related to physiologic impairment Component 14: Pharyngoesophageal Segment Opening: partial distension/partial duration, partial obstruction of flow Component 15: Tongue Base Retraction: narrow column of contrast/air between tongue base and posterior pharyngeal wall Component 16: Pharyngeal Residue: collection of residue within or on pharyngeal structures [facility] Overall Impression Scores Oral Impairment Total: 15 Pharyngeal Impairment Total: 10 Penetration/Aspiration Scale Penetration/Aspiration Scale Performed: Yes Level 0 Thin: Contrast entered the airway, remained above the vocal folds, and was not ejected from the airway Level 2 Mildly Thick: Contrast entered the airway, remained above the vocal folds, and was not ejected from the airway Level 3 Moderately Thick: Contrast did not enter the airway Level 4 Pureed: Contrast did not enter the airway Level 6 Soft & Bite-Sized: Contrast did not enter the airway Trialed Compensatory Strategies Strategies Utilized: Small sips/bites, Double swallow, Controlled bolus Effective: Yes Pain Assessment Pain Assessment: No/denies pain Plan Diagnosis Code Swallowing: R13.12 Dysphagia, oropharyngeal phase Speech Therapy Care Plan Speech Therapy Care Plan (Active) Template: ST - Dysphagia Problem: Swallowing Dates: Start: 11/10/23 Disciplines: ITALIAN TUTOR Goal: LTG: Patient will maintain adequate nutrition/ hydration with optimum safety and efficiency of swallowing function of oral intake without overt signs/symptoms of aspiration for the highest appropriate diet level Dates: Start: 11/10/23 Expected End: 12/08/23 Disciplines: ITALIAN TUTOR Outcomes Date/Time User Outcome 11/10/23 1031 DANILO Kulkarni Progressing Goal: STG: Patient will tolerate therapeutic feeding trials of advanced textures with 90% accuracy with minimal cueing Dates: Start: 11/10/23 Expected End: 12/08/23 Disciplines: ITALIAN TUTOR Outcomes Date/Time User Outcome 11/10/23 1031 DANILO Kulkarni Progressing Speech Therapy Care Plan (Resolved) There are no resolved problems. Principal Problem: Fall Active Problems: Infected prosthetic mesh of abdominal wall ([facility]) Surgical wound present Abdominal wall skin ulcer, with fat layer exposed ([facility]) Speech Therapy Bedside Swallow/ Feeding Evaluation Impressions Oral Dysphagia: Mild Pharyngeal Dysphagia Suspected: Yes Will plan for VFSS. Pt with chronic trach/vent with previous PEG per pt report. Unable to locate any previous formal swallow assessments in EMR. Opacities/infiltrates noted in CXR and CT chest on admission. Formal swallow study warranted to assess swallow function and safety. Recommendations Diet Level: NPO Liquid Level: No liquids Referrals: VFSS Discharge Recommendations: Extended care placement Plan Frequency: 2-3days/week Duration: until discharge Need for skilled Speech Language Pathology Services to address deficits in feeding/swallowing due to a status decline resulting from trach/vent. Pt is a 58yo female with h/o NSTEMI, diabetes, congestive heart failure, end-stage renal disease s/p tunneled cath, and respiratory failure s/p tracheostomy who presents from OSH with left leg injury. Patient reportedly fell out of bed at LTAC she resides at and rolled her left leg. Pt found to have comminuted distal femoral fx with extension into the intercondylar portion of the knee. Pt went to OR 11/07 for ORIF. Reportedly pt with previous PEG, however this has since been removed and pt reports that she was eating and drinking chopped foods/thin liquids prior to admission. Speech consulted to assess swallow function. Prognosis Services: Skilled ITALIAN TUTOR services to address above deficits Prognosis/Potential: Good Considerations: Age, Previous level of function Assessment Baseline Assessment Prior BSSE/VFSS: na, previous records not available Additional Testing Results: Chest X-Ray, Computed Tomography Setting Prior to Admission: Extended care facility Associated Problems: Shortness of breath Respiratory Status: Tracheostomy, Ventilator, Cuffed, Inflated (6XLT distal) Behavior/Cognition: Alert, Cooperative Dentition: Edentulous Patient Positioning: Upright in bed Baseline Vocal Quality: (intermittent strained voicing noted over trach/vent) Ability to Control Secretions: Yes Allergies Marked As Reviewed: Complete Oral/Motor Overall Oral/Motor Status: Exceptions to Within Functional Limits Labial ROM: Reduced Lingual ROM: Reduced Lingual Strength: Reduced Lingual Coordination: Reduced Vocal Quality: Exceptions to WFL Harsh: Mild Vocal Intensity: Mildly decreased Intelligibility: Intelligibility reduced Intelligibility Rating: (trach/vent) Breath Support: Inadequate for speech Dentition: Edentulous Consistencies Assessed: Yes Level 0 Thin Presentation: Straw Oral: Suspect premature spillage Pharyngeal: Cough- delayed Level 4 Pureed Presentation: Spoon Pharyngeal: Cough- delayed Cranial Nerve Screening CN V (trigeminal): Reduced mandibular movements CN VII (facial): Other (Comment) CN X (vagus): Other (Comment) CN XII (hypoglossal): Reduced tongue movements Pain Assessment Pain Assessment: No/denies pain Plan Diagnosis Code Swallowing: R13.12 Dysphagia, oropharyngeal phase Speech Therapy Care Plan Speech Therapy Care Plan (Active) Template: ST - Dysphagia Problem: Swallowing Dates: Start: 11/10/23 Disciplines: ITALIAN TUTOR Goal: LTG: Patient will maintain adequate nutrition/ hydration with optimum safety and efficiency of swallowing function of oral intake without overt signs/symptoms of aspiration for the highest appropriate diet level Dates: Start: 11/10/23 Expected End: 12/08/23 Disciplines: ITALIAN TUTOR Goal: STG: Patient will tolerate therapeutic feeding trials of advanced textures with 90% accuracy with minimal cueing Dates: Start: 11/10/23 Expected End: 12/08/23 Disciplines: ITALIAN TUTOR Speech Therapy Care Plan (Resolved) There are no resolved problems. Principal Problem: Fall Active Problems: Infected prosthetic mesh of abdominal wall ([facility]) Surgical wound present Abdominal wall skin ulcer, with fat layer exposed ([facility]) Problem: Alternate Airway Goal: Tracheotomy/laryngectomy will be maintained safely Description: INTERVENTIONS 1. Keep resuscitation bag, mask, oxygen connection tubing, and extra tracheostomy at bedside; accompanying patient at all times 2. Obturator in plastic bag, readily available at bedside 3. Assess trach site 4. Utilize trach securing device and change as needed per policy 5. Support tubing to avoid pressure from drag of tubing 6. Provide trach care at least every 8 hrs and as needed 7. Change tracheostomy/inner cannula per policy as needed Outcome: Progressing Note: Evaluation of progress towards goal: secure 2Respiratory Therapy Clinical Practice Guidelines Consult Clinical Practice Guidelines Ordered Consult Assessment: Consult, Broncho-pulmonary hygiene, Bronchodilator Broncho-pulmonary Hygiene Indications: Retained secretions or difficulty with clearance Broncho-pulmonary Hygiene Total: 1 Bronchodilator Indications: Bronchospasm/wheezing Bronchodilator Total: 1 Vital Signs Pulse: 105 Heart Rate Source: Monitor Resp: 22 SpO2: 98 % O2 Device: Trach In-situ FiO2 (%): 40 % EtCO2 (mmHg): 33 mmHg ETCO2 Alarm - High: 50 ETCO2 Alarm - Low: 20 Patient Position: Semi-fowlers Respiratory Assessment Assessment Type: Subsequent assessment Level of Consciousness: Alert, Responds to Voice Respiratory Pattern: Regular Chest Assessment: Chest expansion symmetrical Bilateral Breath Sounds: Diminished Suctioning Suction: (refused) Readings Vt (observed, mL): 0.3 mL Avea Vt Mandatory Exp (L): 0.32 Minute Ventilation (L/min): 7 L/min PIP Observed (cm H2O): 35 cm H2O Total Rate : 20 MAP (cm H2O): 17 CM H20 EtCO2 (mmHg): 33 mmHg Plateau Pressure (cm H2O): 29 cm H2O I:E Readin:2 Static Compliance (L/cm H2O): 15.34 Dynamic Compliance (L/cm H2O): 12.8 L/cm H2O Patient Active Problem List Diagnosis Dyspnea NSTEMI (non-ST elevated myocardial infarction) ([facility]) Infected prosthetic mesh of abdominal wall ([facility]) Morbid obesity ([facility]) End stage renal disease ([facility]) Ventilator dependence ([facility]) Coronary artery disease Diabetes 1.5, 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 * (not in an exacerbation) Patients Current Level & Intervention: Level 1: No BP hygiene indicated. Continue suctioning every 4 hours Speech Therapy CANCEL - Deferred Spoke with RN. Hold BSSE d/t current status. Currently requiring mechanical ventilation and undergoing dialysis. Problem: Alternate Airway Goal: Tracheotomy/laryngectomy will be maintained safely Description: INTERVENTIONS 1. Keep resuscitation bag, mask, oxygen connection tubing, and extra tracheostomy at bedside; accompanying patient at all times 2. Obturator in plastic bag, readily available at bedside 3. Assess trach site 4. Utilize trach securing device and change as needed per policy 5. Support tubing to avoid pressure from drag of tubing 6. Provide trach care at least every 8 hrs and as needed 7. Change tracheostomy/inner cannula per policy as needed Outcome: Progressing Note: Respiratory Therapy Clinical Practice Guidelines Consult Clinical Practice Guidelines Ordered Consult Assessment: Consult, Broncho-pulmonary hygiene, Bronchodilator Broncho-pulmonary Hygiene Indications: Retained secretions or difficulty with clearance Broncho-pulmonary Hygiene Total: 1 Bronchodilator Indications: Bronchospasm/wheezing Bronchodilator Total: 1 Vital Signs FiO2 (%): 40 % EtCO2 (mmHg): 33 mmHg ETCO2 Alarm - High: 50 ETCO2 Alarm - Low: 20 Respiratory Assessment Assessment Type: Subsequent assessment Level of Consciousness: Alert Respiratory Pattern: Regular Chest Assessment: Chest expansion symmetrical Bilateral Breath Sounds: Clear, Diminished Readings Vt (observed, mL): 0.3 mL Avea Vt Mandatory Exp (L): 0.32 Minute Ventilation (L/min): 7.17 L/min PIP Observed (cm H2O): 36 cm H2O Total Rate : 22 MAP (cm H2O): 17 CM H20 EtCO2 (mmHg): 33 mmHg I:E Readin:2 Dynamic Compliance (L/cm H2O): 12.03 L/cm H2O Patient Active Problem List Diagnosis Dyspnea NSTEMI (non-ST elevated myocardial infarction) ([facility]) Infected prosthetic mesh of abdominal wall ([facility]) Morbid obesity ([facility]) End stage renal disease ([facility]) Ventilator dependence ([facility]) Coronary artery disease Diabetes 1.5, 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 * (not in an exacerbation) Patients Current Level & Intervention: Level 1: No BP hygiene indicated. Continue suctioning every 4 hours Intervention Mode Selected: ----- Mechanical Ventilator Bronchodilator Breath Sounds Level 1: Clear or occasional minimal wheezing Respiratory History Level 2: Positive risk factors include but not limited to - HX of smoking ; Hx of pulmonary complications ; Smoke inhalation ; physical/chemical trauma to the lung or upper airway Peak Pressures Level 1: Less than 25 cm H2O Peak Minus Plateau Pressure Level 1: 3 cm H2O or less Other Considerations for adventitious breath sounds, elevated peak pressures and peak/plateau difference. Endotracheal tube too small, tube kinked/Foreign body in the lumen Partial cuff herniation Secretions and/or mucus plugging Tracheal malacia or stenosis Patients Current Level & Intervention: 1 Every 4 hours PRN for wheezing E valuation of progress towards goal: Reviewed Problem: Alternate Airway Goal: Tracheotomy/laryngectomy will be maintained safely Description: INTERVENTIONS 1. Keep resuscitation bag, mask, oxygen connection tubing, and extra tracheostomy at bedside; accompanying patient at all times 2. Obturator in plastic bag, readily available at bedside 3. Assess trach site 4. Utilize trach securing device and change as needed per policy 5. Support tubing to avoid pressure from drag of tubing 6. Provide trach care at least every 8 hrs and as needed 7. Change tracheostomy/inner cannula per policy as needed Outcome: Progressing Note: Evaluation of progress towards goal: pt stable Respiratory Therapy Clinical Practice Guidelines Consult Vital Signs Pulse: 103 Heart Rate Source: Monitor Resp: 25 SpO2: 100 % O2 Device: Trach In-situ FiO2 (%): 40 % EtCO2 (mmHg): 32 mmHg Patient Position: Semi-fowlers Respiratory Assessment Assessment Type: Subsequent assessment Level of Consciousness: Alert Respiratory Pattern: Regular Chest Assessment: Chest expansion symmetrical Bilateral Breath Sounds: Clear, Diminished Cough Cough: Induced Suctioning Suction: Oral, Trach Oral Suctioning/Secretions Oral Suction Type: Oral Oral Suction Device: Soft tip Oral Secretion Amount: Small Oral Secretion Color: Clear Oral Secretion Consistency: Thin Oral Suction Tolerance: Tolerated well Oral Suctioning Adverse Effects: None Airway Suctioning/Secretions Airway Suction Type: Tracheal Airway Suction Device : Inline Airway Secretion Amount: Small Airway Secretion Color: Yellow Airway Secretion Consistency: Thick Airway Suction Tolerance: Tolerated well Readings Vt (observed, mL): 0.3 mL Avea Vt Mandatory Exp (L): 0.33 Minute Ventilation (L/min): 7.16 L/min PIP Observed (cm H2O): 37 cm H2O Total Rate : 22 MAP (cm H2O): 17 CM H20 EtCO2 (mmHg): 32 mmHg Plateau Pressure (cm H2O): 33 cm H2O I:E Readin:2 Static Compliance (L/cm H2O): 12.77 Dynamic Compliance (L/cm H2O): 11.48 L/cm H2O Patient Active Problem List Diagnosis Dyspnea NSTEMI (non-ST elevated myocardial infarction) ([facility]) Infected prosthetic mesh of abdominal wall ([facility]) Morbid obesity ([facility]) End stage renal disease ([facility]) Ventilator dependence ([facility]) Coronary artery disease Diabetes 1.5, 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 * (not in an exacerbation) Patients Current Level & Intervention: Level 1: No BP hygiene indicated. Continue suctioning every 4 hours Intervention Mode Selected: ----- Mechanical Ventilator Bronchodilator Breath Sounds Home Therapy: Patient Baseline Respiratory History Home Therapy: Requires home therapy Peak Pressures Home Therapy: Patient Baseline Peak Minus Plateau Pressure Home Therapy: NA Other Considerations for adventitious breath sounds, elevated peak pressures and peak/plateau difference. Endotracheal tube too small, tube kinked/Foreign body in the lumen Partial cuff herniation Secretions and/or mucus plugging Tracheal malacia or stenosis Patients Current Level & Intervention: Home Therapy As at home, reconcile orders with home meds if pulmonary status is stable DISCHARGE PLANNING NOTE Case discussed in daily transition rounds and chart reviewed by CN. Discharge Plan: ECF. Return to [place] in [place]. Return referral sent, updated facility on patient's condition and plan of care. Attempted to call facility again this afternoon to get more information about patient's dialysis with no answer. Will call facility again tomorrow. CN will continue to follow and is available should any further needs arise. - Natalya Blanco RN 11/08/23 3:48 PM DISCHARGE PLANNING NOTE Return referral sent to [facility] in [place] (P# ; F# ) Problem: Safety - Medical Restraint Goal: Remains free of injury from restraints (Restraint for Interference with Major Account Representative) Description: INTERVENTIONS: 1. Determine that other, less restrictive measures have been tried or would not be effective before applying the restraint 2. Evaluate the patient's condition at the time of restraint application 3. Inform patient/family regarding the reason for restraint 4. Q2H: Monitor safety, Vital signs, psychosocial status, signs of injury, skin integrity, circulation, neurovascular status in affected extremities, respiratory status, comfort, nutrition and hydration, hygiene, ROM, elimination needs 5. Doctor will be notified of restraint 6. RN properly applies restraints per physician order Outcome: Progressing Note: Evaluation of progress towards goal: Physical Therapy CANCEL - Deferred Hold PT eval as pt is scheduled for ortho surgery today. Problem: Alternate Airway Goal: Tracheotomy/laryngectomy will be maintained safely Description: INTERVENTIONS 1. Keep resuscitation bag, mask, oxygen connection tubing, and extra tracheostomy at bedside; accompanying patient at all times 2. Obturator in plastic bag, readily available at bedside 3. Assess trach site 4. Utilize trach securing device and change as needed per policy 5. Support tubing to avoid pressure from drag of tubing 6. Provide trach care at least every 8 hrs and as needed 7. Change tracheostomy/inner cannula per policy as needed Outcome: Progressing Note: Respiratory Therapy Clinical Practice Guidelines Consult Clinical Practice Guidelines Ordered Consult Assessment: Consult, Broncho-pulmonary hygiene, Bronchodilator Broncho-pulmonary Hygiene Indications: Retained secretions or difficulty with clearance Broncho-pulmonary Hygiene Total: 1 Bronchodilator Indications: Bronchospasm/wheezing Bronchodilator Total: 1 Vital Signs FiO2 (%): 40 % EtCO2 (mmHg): 45 mmHg ETCO2 Alarm - High: 50 ETCO2 Alarm - Low: 20 Respiratory Assessment Assessment Type: Subsequent assessment Level of Consciousness: Alert Respiratory Pattern: Regular Chest Assessment: Chest expansion symmetrical Bilateral Breath Sounds: Clear, Diminished Airway Suctioning/Secretions Airway Suction Type: Tracheal Airway Suction Device : Inline Airway Secretion Amount: Small Airway Secretion Color: Yellow Readings Vt Spontaneous (mL): 680 mL Minute Ventilation (L/min): 2.32 L/min PIP Observed (cm H2O): 7 cm H2O Total Rate : 9 MAP (cm H2O): 12 CM H20 EtCO2 (mmHg): 45 mmHg Dynamic Compliance (L/cm H2O): 0.2 L/cm H2O Patient Active Problem List Diagnosis Dyspnea NSTEMI (non-ST elevated myocardial infarction) ([facility]) Infected prosthetic mesh of abdominal wall ([facility]) Morbid obesity ([facility]) End stage renal disease ([facility]) Ventilator dependence ([facility]) Coronary artery disease Diabetes 1.5, 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 * (not in an exacerbation) Patients Current Level & Intervention: Level 1: No BP hygiene indicated. Continue suctioning every 4 hours Intervention Mode Selected: ----- Mechanical Ventilator Bronchodilator Breath Sounds Level 1: Clear or occasional minimal wheezing Respiratory History Level 1: None Peak Pressures Level 1: Less than 25 cm H2O Peak Minus Plateau Pressure Level 1: 3 cm H2O or less Other Considerations for adventitious breath sounds, elevated peak pressures and peak/plateau difference. Endotracheal tube too small, tube kinked/Foreign body in the lumen Partial cuff herniation Secretions and/or mucus plugging Tracheal malacia or stenosis Patients Current Level & Intervention: 1 Every 4 hours PRN for wheezing E valuation of progress towards goal: Reviewed Occupational Therapy CANCEL - Deferred (pt admit s/p [facility] bed at [facility], pt non-ambulatory at baseline. now with femur fx pending surgical intervention this date w/ ortho. cont as able w/ OT eval once pt medically stable from sx.) Problem: Alternate Airway Goal: Tracheotomy/laryngectomy will be maintained safely Description: INTERVENTIONS 1. Keep resuscitation bag, mask, oxygen connection tubing, and extra tracheostomy at bedside; accompanying patient at all times 2. Obturator in plastic bag, readily available at bedside 3. Assess trach site 4. Utilize trach securing device and change as needed per policy 5. Support tubing to avoid pressure from drag of tubing 6. Provide trach care at least every 8 hrs and as needed 7. Change tracheostomy/inner cannula per policy as needed Outcome: Progressing Note: Evaluation of progress towards goal: pt stable Respiratory Therapy Clinical Practice Guidelines Consult Vital Signs BP: 91/59 Pulse: 121 Resp: 17 SpO2: 97 % O2 Device: Trach In-situ FiO2 (%): 40 % EtCO2 (mmHg): 36 mmHg ETCO2 Alarm - High: 50 ETCO2 Alarm - Low: 20 Patient Position: Semi-fowlers Respiratory Assessment Assessment Type: Subsequent assessment Level of Consciousness: Alert Respiratory Pattern: Regular Chest Assessment: Chest expansion symmetrical Bilateral Breath Sounds: Clear, Diminished Suctioning Suction: Oral, Trach Oral Suctioning/Secretions Oral Suction Type: Oral Oral Suction Device: Catheter Oral Secretion Amount: Small Oral Secretion Color: Clear Oral Secretion Consistency: Thin Oral Suction Tolerance: Tolerated well Airway Suctioning/Secretions Airway Suction Type: Tracheal Airway Suction Device : Inline Airway Secretion Amount: Small Airway Secretion Color: Yellow Airway Secretion Consistency: Thick Airway Suction Tolerance: Tolerated well Readings Vt (observed, mL): 0.4 mL Avea Vt Mandatory Exp (L): 0.38 Minute Ventilation (L/min): 7.22 L/min PIP Observed (cm H2O): 13 cm H2O Total Rate : 21 MAP (cm H2O): 11 CM H20 EtCO2 (mmHg): 36 mmHg Plateau Pressure (cm H2O): 19 cm H2O I:E Readin:2.1 Static Compliance (L/cm H2O): 9.31 Dynamic Compliance (L/cm H2O): 82.83 L/cm H2O Patient Active Problem List Diagnosis Dyspnea NSTEMI (non-ST elevated myocardial infarction) ([facility]) Infected prosthetic mesh of abdominal wall ([facility]) Morbid obesity ([facility]) End stage renal disease ([facility]) Ventilator dependence ([facility]) Coronary artery disease Diabetes 1.5, 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 * (not in an exacerbation) Patients Current Level & Intervention: Level 1: No BP hygiene indicated. Continue suctioning every 4 hours Intervention Mode Selected: ----- Mechanical Ventilator Bronchodilator Breath Sounds Level 1: Clear or occasional minimal wheezing Respiratory History Level 1: None Peak Pressures Home Therapy: Patient Baseline Peak Minus Plateau Pressure Home Therapy: NA Other Considerations for adventitious breath sounds, elevated peak pressures and peak/plateau difference. Endotracheal tube too small, tube kinked/Foreign body in the lumen Partial cuff herniation Secretions and/or mucus plugging Tracheal malacia or stenosis Patients Current Level & Intervention: Home Therapy As at home, reconcile orders with home meds if pulmonary status is stable documented in this encounter [facility] 11-11-2023 Hospital course Narrative [facility] TRAUMA SURGERY-DISCHARGE SUMMARY DISCHARGE NOTE / SUMMARY Patient ID: Matthew Neal : 1965 Acct: [id number] Patient's PCP: JULIÁN CONTI MD Admit Date: 11/07/2023 Discharge Date: 11/11/2023 Admitting Physician: Wander Arias DO Consults: Orthopedics (Ortho) and Nephrology Discharge Diagnoses/Chief Complaint: Fall Primary Problem Fall Patient Active Problem List Diagnosis Date Noted Surgical wound present 11/09/2023 Abdominal wall skin ulcer, with fat layer exposed ([facility]) 11/09/2023 Fall 11/07/2023 NSTEMI (non-ST elevated myocardial infarction) ([facility]) 11/05/2022 Infected prosthetic mesh of abdominal wall ([facility]) 11/05/2022 Morbid obesity ([facility]) 11/05/2022 End stage renal disease ([facility]) 11/05/2022 Ventilator dependence ([facility]) 11/05/2022 Coronary artery disease 11/05/2022 Diabetes 1.5, managed as type 1 ([facility]) 11/05/2022 Dyspnea 03/21/2021 Past Medical History: Diagnosis Date Anemia CHF (congestive heart failure) ([facility]) Diabetes ([facility]) Morbid obesity ([facility]) NSTEMI (non-ST elevated myocardial infarction) ([facility]) Respiratory failure ([facility]) HOSPITAL COURSE SUMMARY: Matthew Neal is an 58 y.o. White or female who presents from [facility] asa trama consult after a fall from at [facility]. Patient is vent dependent secondary to chronic respiratory failure. She was reaching for her dropped phone this morning and rolled out of bed striking her leg. She denies hitting her head or loss of consciousness. Not currently on AC. Denies abdominal pain, chest pain or worsening shortness of breath. Dialysis patient secondary to ESRD with tunneled cath in place. Injuries/Traumatic issues: Fall from bed - PT/OT recommend returning to ECF, not ambulatory at baseline - Tertiary examination, completed 11/08: Pt palpated from clavicles to fingertips and hips to feet bilaterally, no additional areas of pain were noted to indicate missed injury. Left Distal femur Fracture - Ortho surgery consulted: appreciate recommendations - CT Left Knee: Comminuted distal femoral fracture with extension into the intercondylar portion of the knee. - 11/07 OR-->ORIF Left femur -Vit D, 6-12 weeks DVT ppx on DC -NWB LLE, follow up OP, non ambulatory at baseline Chronic respiratory failure - Tracheostomy in place, ventilator dependent secondary to chronic respiratory failure, COPD - currently on a rate control, no increasing oxygen demand, diminished left breath sounds he was chronic in nature after reviewing previous CTs ESRD - R Sided tunneled dialysis catheter in place - Consult nephrology: For dialysis, hyperkalemic K+ 5.7 - On HD -- per chart review Chronic abdominal wound - Packed with wet to dry dressing with saline soaked gauze - CT abdomen: Concerning for cellulitis near wound site - Follows with Dr. Gunderson [facility] for chronic infected Mesh DM 2 - Insulin sliding scale and Lantus BID, restart home meds Lines and Tubes: PIV, trach, tunneled dialysis line, restrepo catheter Nutrition: L5/L2 diet Prophylaxis: Heparin SQ Disposition: Return to ECF The patient was seen and examined on day of discharge and this discharge summary is in conjunction with any daily progress note from day of discharge. Pulse: 118 Resp: 17 BP: 99/55 Temp: 36.6 C (97.9 F) All home medications restarted at time of discharge. Treatments: Procedure(s): OPEN REDUCTION INTERNAL FIXATION FEMUR (Left) - Wound Class: Clean Contaminated - Incision Closure: Deep and Superficial Layers Discharged Condition: Stable DISCHARGE INSTRUCTIONS: Discharge Medications: Your medication list START taking these medications Instructions Last Dose Given Next Dose Due heparin (porcine) 5,000 unit/mL injection Inject 1.5 mL (7,500 Units total) under the skin every 8 (eight) hours. CHANGE how you take these medications Instructions Last Dose Given Next Dose Due ALPRAZolam 0.5 mg tablet Commonly known as: XANAX What changed: Another medication with the same name was removed. Continue taking this medication, and follow the directions you see here. oxyCODONE 5 mg/5 mL solution Commonly known as: ROXICODONE What changed: medication strength reasons to take this Take 5 mL (5 mg total) by mouth every 6 (six) hours as needed for pain for up to 7 days. Max Daily Amount: 20 mg CONTINUE taking these medications Instructions Last Dose Given Next Dose Due acetaminophen 325 mg tablet Commonly known as: TYLENOL albuterol 0.63 mg/3 mL nebulizer solution Commonly known as: ACCUNEB albuterol 2.5 mg /3 mL (0.083 %) nebulizer solution Commonly known as: PROVENTILVENTOLIN aspirin 81 mg atorvastatin 20 mg tablet Commonly known as: LIPITOR bumetanide 1 mg tablet Commonly known as: BUMEX busPIRone 10 mg tablet Commonly known as: BUSPAR busPIRone 7.5 mg tablet Commonly known as: BUSPAR cholecalciferol 1,000 units tablet Commonly known as: VITAMIN D3 cyclobenzaprine 5 mg tablet Commonly known as: FLEXERIL DIALYVITE 3-70-15 mg-mcg-mg tablet Generic drug: folic acid-B belt-[id number] dicyclomine 10 mg capsule Commonly known as: BENTYL FLUoxetine 20 mg capsule Commonly known as: PROzac gabapentin 100 mg capsule Commonly known as: NEURONTIN insulin glargine 100 unit/mL (3 mL) insulin pen Commonly known as: LANTUS SEMGLEE Inject 32 Units under the skin in the morning and 32 Units in the evening. Inject before meals. insulin lispro 100 unit/mL insulin pen Commonly known as: HumaLOG Inject 2-10 Units under the skin in the morning and 2-10 Units at noon and 2-10 Units in the evening. Inject with meals. For glucose 151-200 mg/dL, give 2 units. For glucose 201-250 mg/dL, give 4 units. For glucose 251-300 mg/dL, give 6 units. For glucose 301-350 mg/dL, give 8 units. For glucose 351-400 mg/dL, give 10 units. insulin lispro 100 unit/mL insulin pen Commonly known as: HumaLOG Inject 2-8 Units under the skin nightly. Bedtime hyperglycemia dosing. For glucose 201-250 mg/dL, give 2 units. For glucose 251-300 mg/dL, give 4 units. For glucose 301-350 mg/dL, give 6 units. For glucose 351-400 mg/dL, give 8 units. lacosamide 100 mg tablet Commonly known as: VIMPAT levETIRAcetam 1000 mg tablet Commonly known as: KEPPRA levothyroxine 175 MCG tablet Commonly known as: SYNTHROID, LEVOTHROID midodrine 10 mg tablet Commonly known as: PROAMATINE Take 1 tablet (10 mg total) by mouth as needed (Hemodialysis - PRN at initiation and midway through dialysis session). MIRCERA 75 mcg/0.3 mL syringe Generic drug: epoetin beta, methoxy peg naloxone 4 mg/actuation spray,non-aerosol nasal spray Commonly known as: NARCAN Administer 1 spray (4 mg total) into alternating nostrils as needed for opioid reversal. ondansetron 4 mg tablet Commonly known as: ZOFRAN pantoprazole 40 mg EC tablet Commonly known as: PROTONIX polyethylene glycol 17 gram/dose powder Commonly known as: GLYCOLAX potassium chloride 20 MEQ CR tablet Commonly known as: KLOR-CON M 20 risperiDONE 1 mg tablet Commonly known as: RisperDAL sennosides-docusate sodium 8.6-50 mg Commonly known as: SENOKOT-S Take 1 tablet by mouth once daily at bedtime. sevelamer 800 mg tablet Commonly known as: RENVELA STOP taking these medications predniSONE 20 mg tablet Commonly known as: DELTASONE Where to Get Your Medications These medications were sent to [facility] [place] [id number], [place] [id number] heparin (porcine) 5,000 unit/mL injection You can get these medications from any pharmacy Bring a paper prescription for each of these medications oxyCODONE 5 mg/5 mL solution Information about where to get these medications is not yet available Ask your nurse or doctor about these medications insulin glargine 100 unit/mL (3 mL) insulin pen sennosides-docusate sodium 8.6-50 mg Additional Discharge Instructions: None Scheduled Outpatient Follow Up: Future Appointments Date Time Provider Department Center 11/23/2023 12:45 PM Jagdish Vasquez MD [facility] Follow-up Information JULIÁN CONTI MD . Specialty: Family Medicine Contact information: [place] [address] Scheduled Appointments Nov 23, 2023 12:45 PM (Arrive by 12:30 PM) POST OPERATION VISIT with Jagdish Vasquez MD [facility] ([facility]) [address] [place] [address] At the time of your visit please be aware of the following COVID-19 information: If you develop a new cough, fever, or shortness of breath, please call before your appointment. Please plan to arrive at least 15 minutes earlier than your appointment time as screening and registration may take longer than anticipated. Please consider the [employer]-in to pre-register and make your co-payment before your visit. This will reduce your registration time. Please be aware that the [facility] facility you are visiting may require you to wear a mask. It will not be unusual if you find that masking is required in some locations and not required in other locations. The determination is made based on the amount of COVID transmission and infection rate in the community where the facility is located. Please be prepared to wear a mask if the facility you are visiting requires masking. Masks are available upon entry into the facility; however, it is best to bring your own mask and put it on before entering the facility. If wearing a mask is not possible due to an underlying health condition, please work with your care team on an alternate plan before your scheduled appointment. Time spent: >30min AUDREY LAMAS 11/11/23 3:07 PM AUDREY Lamas 11/11/23 1513 documented in this encounter [facility] 11-11-2023 History of Present illness Narrative Reason for Follow up: ESRD. Assessment: End-stage renal disease, on a Tuesday through Tuesday schedule at senior care facility. Hyponatremia. Mild hyperkalemia, improved. Hypomagnesemia. Hyperphosphatemia. Anasarca. Hypotension. Anemia. Plan: Will use iv Albumin and oral Midodrine with HD. Monitor blood pressure. HD completed this morning. Orders per Dr. Fitzgerald. Off [facility]. Continue low dose magnesium oxide. We will follow phosphorus level and adjust binders as needed. We will follow H&H and start erythropoeitin stimulating agent as needed. On thickened diet. Acid Base status stable and at target. K and Phos at target. We will follow up chemistries. Avoid Lovenox and Fleets enema. We will continue dialysis on to schedule. Okay for discharge planning back to SNF. Please do not hesitate to call with questions. SUBJECTIVE: Pt seen and examined at the bedside. She is comfortable. No new concerns. Pt is going to be discharging back to her SNF that she lives at later today. She completed dialysis treatment this morning and 1.7 L was removed. Review Of Systems: Constitutional: No fever, chills, lethargy, weakness and wt loss. Cardiac: No chest pain, dyspnea, orthopnea or PND. Chest: No cough, phlegm or wheezing. Abdomen: No nausea, no vomiting or diarrhea. : No hematuria, pyuria, dysuria or flank pain. Extremities: No swelling or joint pains. Scheduled Meds: acetaminophen, 1,000 mg, oral, Q8H atorvastatin, 20 mg, oral, Daily chlorhexidine, 15 mL, mouth/throat, BID cholecalciferol (vitamin D3), 2,000 Units, oral, Daily darbepoetin linda (ARANESP) injection, 100 mcg, subcutaneous, Weekly FLUoxetine, 30 mg, oral, Daily gabapentin, 100 mg, oral, TID heparin (porcine), 7,500 Units, subcutaneous, Q8H YOLA insulin lispro, 2-10 Units, subcutaneous, Q6H lacosamide, 50 mg, nasogastric, BID levETIRAcetam, 500 mg, oral, TID levothyroxine, 175 mcg, oral, Daily magnesium oxide, 400 mg, oral, Daily methocarbamoL, 500 mg, oral, TID midodrine, 10 mg, g-tube, TID pantoprazole, 40 mg, intravenous, Q24H YOLA risperiDONE, 1 mg, oral, Daily sevelamer carbonate, 3,200 mg, nasogastric, TID with meals sodium chloride, 10 mL, intravenous, Q96H sodium chloride, 10 mL, intravenous, Q96H sodium citrate, 2 mL, intravenous, Q96H sodium citrate, 2 mL, intravenous, Q96H sodium hypochlorite, 1 Application, topical, BID sterile water (PF), 4.4 mL, injection, OnceContinuous Infusions: PRN Meds: albumin human albuterol barium sulfate barium sulfate HYDROmorphone midodrine oxyCODONE sodium chloride sodium chloride sodium chloride sodium chloride sodium citrate sodium citrate Allergies Allergen Reactions Iodinated Contrast Media Shortness Of Breath Morphine Shortness Of Breath Fentanyl Patient gets burning and abdominal cramps Gadolinium-Containing Contrast Media Zosyn [Piperacillin-Tazobactam] Physical Exam: Blood pressure 99/55, pulse 118, temperature 36.6 C (97.9 F), temperature source Axillary, resp. rate 17, height 152.4 cm (5'), weight (!) 148.3 kg (326 lb 15.1 oz), SpO2 97%. Intake/Output Summary (Last 24 hours) at 11/11/2023 1308 Last data filed at 11/11/2023 1205 Gross per 24 hour Intake 2670 ml Output 6140 ml Net -3470 ml General: in no distress. Anasarca HEENT: Atraumatic, normocephalic. Anicteric sclera. [place] and moist oral mucosa. No carotid bruit. No JVD. Chest: Bilateral air entry, clear to auscultation, no wheezing, rhonchi or rales. Trach in place. Cardiovascular: RRR, S1S2, no murmur, rub or gallop. Has lower extremity edema. Abdomen: Soft, non tender to palpation. Active bowel sounds x 4 quadrants. Musculoskeletal: No cyanosis or clubbing. Integumentary: [place], warm and dry. Free from rash or lesions. Skin turgor normal. FLIGHT TECHNICIAN: Face symmetrical. No tremor. Data: CBC: Lab Results Component Value Date WBC 6.3 11/11/2023 HGB 7.7 (L) 11/11/2023 HCT 23.4 (L) 11/11/2023 MCV 99 11/11/2023 PLT 116 (L) 11/11/2023 BMP: Lab Results Component Value Date K 4.5 11/11/2023 CL 97 (L) 11/11/2023 CO2 23 11/11/2023 BUN 21 11/11/2023 CREATININE 3.08 (H) 11/11/2023 CMP: Lab Results Component Value Date K 4.5 11/11/2023 CL 97 (L) 11/11/2023 CO2 23 11/11/2023 BUN 21 11/11/2023 CREATININE 3.08 (H) 11/11/2023 CALCIUM 9.0 11/11/2023 ALKPHOS 182 (H) 11/07/2023 AST 11 11/07/2023 ALT 15 11/07/2023 Hepatic: Lab Results Component Value Date AST 11 11/07/2023 ALT 15 11/07/2023 ALKPHOS 182 (H) 11/07/2023 BNP: Lab Results Component Value Date BNP 101 (H) 07/17/2023 Lipids: Lab Results Component Value Date CHOL 95 (L) 09/30/2023 HDL 32 (L) 09/30/2023 INR: Lab Results Component Value Date INR 1.0 11/07/2023 PTH: No results found for: PTH Phosphorus: No results found for: PHOS Ionized Calcium: No components found for: IONCA Magnesium: Lab Results Component Value Date MG 2.1 11/10/2023 Albumin: No components found for: LABALBU Last 3 CK, CKMB, Troponin: URINE:)No results found for: NAUR , PROTUR Radiology: Reviewed. Pt seen in collaboration with Dr. Fitzgerald. Severino Wilson, PILE DRIVER OPERATOR [employer] SOFTWARE ENGINEER 11/11/23 1312 Physician Addendum: Pt seen and examined. Pt well known to our service due to ESRD. Interim hx reviewed and physical examination performed. Pt's HD orders were reviewed with oil plant operator. HD completed. Stable for [facility]. - Martin Fitzgerald MD 11/11/23 7:00 PM Images from the original note were not included. SICU Academic Critical Care Progress Name: Matthew Neal Date: 11/11/2023 Length of Stay: 4 day(s) Chief Complaint: Fall, left leg injury History of Present Illness: Matthew Neal is a 58 y.o. female with PMH of NSTEMI, diabetes, congestive heart failure, end-stage renal disease s/p tunneled cath, and respiratory failure s/p tracheostomy who presents from OSH with left leg injury. Patient reportedly fell out of bed at LTAC she resides at and rolled her left leg. She immediately began experiencing pain and swelling over left leg. Denies head injury or LOC. Not currently anticoagulated. Overnight Events: Received dialysis yesterday, removed 2.5 liters. BP was low so she was given albumin and midodrine. BP improved. Swallow study completed yesterday diet changed to level 5 minced and moist and level 3 moderately thick. Past Medical History: Diagnosis Date Anemia CHF (congestive heart failure) ([facility]) Diabetes ([facility]) Morbid obesity ([facility]) NSTEMI (non-ST elevated myocardial infarction) ([facility]) Respiratory failure ([facility]) Past Surgical History: Procedure Laterality Date OPEN REDUCTION INTERNAL FIXATION FEMUR Left 11/08/2023 Performed by Jagdish Vasquez MD at [facility] TRACHEOSTOMY Medications Prior to Admission Medication Sig Dispense Refill Last Dose acetaminophen (TYLENOL) 325 mg tablet Take 2 tablets (650 mg total) by mouth every 6 (six) hours as needed for fever. Other - as prescribed albuterol (PROVENTIL,VENTOLIN) 2.5 mg /3 mL (0.083 %) nebulizer solution Inhale 3 mL (2.5 mg total) by nebulization every 4 (four) hours as needed for shortness of breath. Other - as prescribed ALPRAZolam (XANAX) 0.5 mg tablet Take 1 tablet (0.5 mg total) by mouth in the morning and 1 tablet (0.5 mg total) before bedtime. ALPRAZolam (XANAX) 1 mg tablet Take 1 tablet (1 mg total) by mouth in the morning and 1 tablet (1 mg total) before bedtime. Indications: anxious. aspirin 81 mg Take 1 tablet (81 mg total) by mouth in the morning. atorvastatin (LIPITOR) 20 mg tablet Take 1 tablet (20 mg total) by mouth in the morning. bumetanide (BUMEX) 1 mg tablet Take 2 tablets (2 mg total) by mouth daily. busPIRone (BUSPAR) 10 mg tablet Take 1 tablet (10 mg total) by mouth in the morning and 1 tablet (10 mg total) before bedtime. busPIRone (BUSPAR) 7.5 mg tablet Take 1 tablet (7.5 mg total) by mouth in the morning. cholecalciferol (VITAMIN D3) 1,000 units tablet Take 2 tablets (2,000 Units total) by mouth in the morning. Indications: low vitamin D levels. cyclobenzaprine (FLEXERIL) 5 mg tablet Take 2 tablets (10 mg total) by mouth every 6 (six) hours. Other - as prescribed dicyclomine (BENTYL) 10 mg capsule Take 1 capsule (10 mg total) by mouth 3 (three) times a day. epoetin beta, methoxy peg (MIRCERA) 75 mcg/0.3 mL syringe Inject 75 mcg as directed every 14 (fourteen) days. FLUoxetine (PROzac) 20 mg capsule Take 30 mg by mouth in the morning. folic acid-B nscq-C-vgpba-zinc (DIALYVITE) 3-70-15 mg-mcg-mg tablet Take 1 tablet by mouth in the evening. gabapentin (NEURONTIN) 100 mg capsule Take 1 capsule (100 mg total) by mouth 3 (three) times a day. insulin glargine (LANTUS, BASAGLAR) 100 unit/mL (3 mL) insulin pen Inject 20 Units under the skin in the morning and 20 Units in the evening. Inject before meals. (Patient taking differently: Inject 32 Units under the skin in the morning and 32 Units in the evening. Inject before meals.) 15 mL 12 insulin lispro (HumaLOG) 100 unit/mL insulin pen [...] mg/dL, give 10 units. 15 mL 12 insulin lispro (HumaLOG) 100 unit/mL insulin pen Inject 2-8 Units under the skin nightly. Bedtime hyperglycemia dosing. For glucose 201-250 mg/dL, give 2 units. For glucose 251-300 mg/dL, give 4 units. For glucose 301-350 mg/dL, give 6 units. For glucose 351-400 mg/dL, give 8 units. 15 mL 12 lacosamide (VIMPAT) 100 mg tablet Take 0.5 tablets (50 mg total) by mouth in the morning and 0.5 tablets (50 mg total) before bedtime. levETIRAcetam (KEPPRA) 1000 mg tablet Take 0.5 tablets (500 mg total) by mouth 3 (three) times a day. levothyroxine (SYNTHROID, LEVOTHROID) 175 MCG tablet Take 1 tablet (175 mcg total) by mouth in the morning. midodrine (PROAMATINE) 10 mg tablet Take 1 tablet (10 mg total) by mouth as needed (Hemodialysis - PRN at initiation and midway through dialysis session). 90 tablet 3 Other - as prescribed naloxone (NARCAN) 4 mg/actuation spray,non-aerosol nasal spray Administer 1 spray (4 mg total) into alternating nostrils as needed for opioid reversal. 3 each 3 Other - as prescribed ondansetron (ZOFRAN) 4 mg tablet Take 1 tablet (4 mg total) by mouth every 6 (six) hours as needed for nausea or vomiting. Other - as prescribed oxycodone HCl (OXYCODONE ORAL) Take 5 mg by mouth every 6 (six) hours as needed. Other - as prescribed pantoprazole (PROTONIX) 40 mg EC tablet Take 1 tablet (40 mg total) by mouth in the morning. polyethylene glycol (GLYCOLAX) 17 gram/dose powder Take 17 g by mouth in the morning. potassium chloride (KLOR-CON M 20) 20 MEQ CR tablet Take 1 tablet (20 mEq total) by mouth in the morning. risperiDONE (RisperDAL) 1 mg tablet Take 1 tablet (1 mg total) by mouth in the morning. sennosides-docusate sodium (SENOKOT-S) 8.6-50 mg Take 1 tablet by mouth every 12 (twelve) hours as needed for constipation. (Patient taking differently: Take 1 tablet by mouth once daily at bedtime.) 60 tablet 3 sevelamer (RENVELA) 800 mg tablet Take 4 tablets (3,200 mg total) by mouth in the morning and 4 tablets (3,200 mg total) at noon and 4 tablets (3,200 mg total) in the evening. Take with meals. albuterol (ACCUNEB) 0.63 mg/3 mL nebulizer solution Inhale 3 mL (0.63 mg total) by nebulization every 6 (six) hours as needed for wheezing. predniSONE (DELTASONE) 20 mg tablet Take 1 tablet (20 mg total) by mouth in the morning. (Patient not taking: Reported on 11/07/2023) Unknown acetaminophen, 1,000 mg, oral, Q8H atorvastatin, 20 mg, oral, Daily chlorhexidine, 15 mL, mouth/throat, BID cholecalciferol (vitamin D3), 2,000 Units, oral, Daily darbepoetin linda (ARANESP) injection, 100 mcg, subcutaneous, Weekly FLUoxetine, 30 mg, oral, Daily gabapentin, 100 mg, oral, TID heparin (porcine), 7,500 Units, subcutaneous, Q8H YOLA insulin lispro, 2-10 Units, subcutaneous, Q6H lacosamide, 50 mg, nasogastric, BID levETIRAcetam, 500 mg, oral, TID levothyroxine, 175 mcg, oral, Daily magnesium oxide, 400 mg, oral, Daily methocarbamoL, 500 mg, oral, TID midodrine, 5 mg, g-tube, TID risperiDONE, 1 mg, oral, Daily sevelamer carbonate, 3,200 mg, nasogastric, TID with meals sodium chloride, 10 mL, intravenous, Q96H sodium chloride, 10 mL, intravenous, Q96H sodium citrate, 2 mL, intravenous, Q96H sodium citrate, 2 mL, intravenous, Q96H sodium hypochlorite, 1 Application, topical, BID sterile water (PF), 4.4 mL, injection, Once Allergies Allergen Reactions Iodinated Contrast Media Shortness Of Breath Morphine Shortness Of Breath Fentanyl Patient gets burning and abdominal cramps Gadolinium-Containing Contrast Media Zosyn [Piperacillin-Tazobactam] History reviewed. No pertinent family history. Social History Socioeconomic History Marital status: Tobacco Use Smoking status: Never Smokeless tobacco: Never Vaping Use Vaping status: Never Used Substance and Sexual Activity Alcohol use: Not Currently Drug use: Never Sexual activity: Defer Other Topics Concern Caffeine Use Yes Social Determinants of Health Food Insecurity: No Food Insecurity (11/07/2023) Hunger Screening Food Insecurity - Worry: Never True Food Insecurity - Inability: Never True Transportation Needs: No Transportation Needs (11/07/2023) PRAPARE - Transportation Lack of Transportation (Medical): No Lack of Transportation (Non-Medical): No Physical Activity: Inactive (09/14/2023) Received from [facility] Exercise Vital Sign Days of Exercise per Week: 0 days Minutes of Exercise per Session: 0 min Stress: No Stress Concern Present (09/14/2023) Received from [facility] [employer] [place] [facility] [employer] - Occupational Stress Questionnaire Feeling of Stress : Not at all Interpersonal Safety: Not At Risk (11/07/2023) Humiliation, Afraid, Rape, and Kick questionnaire Fear of Current or Ex-Partner: No Emotionally Abused: No Physically Abused: No Sexually Abused: No Housing Instability: Low Risk (11/07/2023) Housing Instability Housing Instability: No Temp: [36.6 C (97.9 F)-36.9 C (98.4 F)] 36.9 C (98.4 F) Pulse: [100-125] 100 Resp: [8-24] 22 BP: (73-116)/(30-101) 100/61 Arterial Line BP: (97-109)/(51-54) 109/54 FiO2 (%): [40 %] 40 % SpO2: [93 %-100 %] 99 % O2 Device: Trach In-situ O2 Device: Trach In-situ Physical Exam General: Awake, alert and oriented x3, in no acute distress HENT: Head atraumatic, normocephalic, external ears and nose are normal Eyes: Conjunctivae clear, non-icteric, EOMI Pulmonary: Regular, non-labored respirations, tracheostomy Cardiovascular: Regular rate and rhythm, radial pulses 2+, moderately edematous b/l lower extremities Abdomen: Soft, non-tender, non-distended, obese abdomen Musculoskeletal: Limited ROM L lower extremity s/p surgical repair, R lower extremity normal ROM without obvious deformity Neurological: No gross neurologic deficit, sensation grossly intact Skin: Warm, dry, without jaundice Ventilator Settings Vent Mode: PRVC-AC FiO2 (%): 40 % Resp Rate (Set): 22 Vt (Set, mL): 400 mL Avea Vt (Set, L): 0.4 Liter PEEP/CPAP (cm H2O): 8 cm H20 Insp Time (sec): 0.92 sec Pressure Support Above PEEP Set (cm H2O): 12 cm H20 Trigger Sensitivity Flow (L/min): 1 L/min Trigger Sensitivity Pressure (cm H2O): 3 cm H2O Humidification: Heater Heater Temperature: 37 C (98.6 F) Results from last 3 days Lab Units 11/11/23 0310 11/10/23 0200 11/09/23 0240 11/08/23 1730 BUN mg/dL 21 33* 53* 46* CREATININE mg/dL 3.08* 3.87* 5.02* 4.66* POTASSIUM mmol/L 4.5 4.1 4.9 4.9 CO2 mmol/L 23 19* 20* 20* CHLORIDE mmol/L 97* 95* 98 97* MAGNESIUM mg/dL -- 2.1 2.2 2.3 No data from last 3 days. Results from last 3 days Lab Units 11/11/23 0310 11/10/23 0200 11/09/23 0850 11/09/23 0240 11/08/23 1730 WBC X10E9/L 6.3 7.2 -- 6.6 10.2 HEMOGLOBIN g/dL 7.7* 8.5* 8.7* 8.7* 9.7* HEMATOCRIT % 24.1* 26.4* 27.0* 27.4* 30.7* PLATELETS X10E9/L 116* 94* -- 92* 101* MCV fL 99 100 -- 99 99 MCH pg 31.5 32.3 -- 31.2 31.5 MCHC g/dL 31.8* 32.3 -- 31.7* 31.6* RDW % 15.7* 15.3* -- 15.6* 15.6* EOS ABS AUTO X10E9/L -- -- -- -- 0.2 Microbiology Results Procedure Component Value Units Date/Time Urine culture [[id number]] (Abnormal) (Susceptibility) Collected: 11/07/23 1227 Specimen: Urine from Restrepo Catheter Specimen Updated: 11/10/23 1150 Culture >100,000 ORGANISMS/mL ESCHERICHIA COLI >100,000 ORGANISMS/mL ESCHERICHIA COLI VARIANT 50,000 to 100,000 ORGANISMS/mL NORMAL URO GENITAL NADINE Susceptibility Escherichia Coli (1) JASON METHOD AMP/SULBACTAM >=32/16 Resistant Ampicillin >=32 Resistant Cefazolin >=64 Resistant Ceftriaxone >=64 Resistant Ciprofloxacin >=4 Resistant Ertapenem <=0.12 Susceptible ESBL Test POSITIVE [1] Gentamicin >=16 Resistant Levofloxacin >=8 Resistant Nitrofurantoin 128 Resistant PIPERACIL/TAZOBACTAM 16 SUSCEPTIBLE (DOSE DEPENDENT) Tobramycin >=16 Resistant TRIMETH/SULFAMETHOXAZOLE >=16/304 Resistant [1] Organism produces an extended spectrum beta lactamase (ESBL). It may be clinically resistant to therapy with penicillins, cephalosporins, or aztreonam. Contact laboratory if further information is required. Susceptibility Escherichia Coli (2) JASON METHOD AMP/SULBACTAM >=32/16 Resistant Ampicillin >=32 Resistant Cefazolin >=64 Resistant Ceftriaxone >=64 Resistant Ciprofloxacin >=4 Resistant Ertapenem <=0.12 Susceptible [1] ESBL Test POSITIVE [2] Gentamicin >=16 Resistant Levofloxacin >=8 Resistant Nitrofurantoin 128 Resistant PIPERACIL/TAZOBACTAM 16 SUSCEPTIBLE (DOSE DEPENDENT) Tobramycin >=16 Resistant TRIMETH/SULFAMETHOXAZOLE >=16/304 Resistant [1] CLIA ID [id number] [2] Organism produces an extended spectrum beta lactamase (ESBL). It may be clinically resistant to therapy with penicillins, cephalosporins, or aztreonam. Contact laboratory if further information is required. Glucose Results from last 7 days Lab Units 11/11/23 0531 11/11/23 0310 11/10/23 2334 11/10/23 1653 11/10/23 1047 11/10/23 0539 11/10/23 0200 11/09/23 2233 11/09/23 1624 11/09/23 1051 11/09/23 0542 11/09/23 0240 BEDSIDE GLUCOSE mg/dL 134* -- 182* 140* 139* 142* -- 87 115* 120* 158* -- GLUCOSE mg/dL -- 139* -- -- -- -- 141* -- -- -- -- 154* I/O last 3 completed shifts: In: 2300 [P.O.:600; I.V.:390; Other:600; NG/GT:510; IV Piggyback:200] Out: 4670 [Emesis/NG output:2150; Other:2520] acetaminophen, 1,000 mg, oral, Q8H atorvastatin, 20 mg, oral, Daily chlorhexidine, 15 mL, mouth/throat, BID cholecalciferol (vitamin D3), 2,000 Units, oral, Daily darbepoetin linda (ARANESP) injection, 100 mcg, subcutaneous, Weekly FLUoxetine, 30 mg, oral, Daily gabapentin, 100 mg, oral, TID heparin (porcine), 7,500 Units, subcutaneous, Q8H YOLA insulin lispro, 2-10 Units, subcutaneous, Q6H lacosamide, 50 mg, nasogastric, BID levETIRAcetam, 500 mg, oral, TID levothyroxine, 175 mcg, oral, Daily magnesium oxide, 400 mg, oral, Daily methocarbamoL, 500 mg, oral, TID midodrine, 5 mg, g-tube, TID risperiDONE, 1 mg, oral, Daily sevelamer carbonate, 3,200 mg, nasogastric, TID with meals sodium chloride, 10 mL, intravenous, Q96H sodium chloride, 10 mL, intravenous, Q96H sodium citrate, 2 mL, intravenous, Q96H sodium citrate, 2 mL, intravenous, Q96H sodium hypochlorite, 1 Application, topical, BID sterile water (PF), 4.4 mL, injection, Once Microbiology Results Procedure Component Value Units Date/Time Urine culture [[id number]] (Abnormal) (Susceptibility) Collected: 11/07/23 1227 Specimen: Urine from Restrepo Catheter Specimen Updated: 11/10/23 1150 Culture >100,000 ORGANISMS/mL ESCHERICHIA COLI >100,000 ORGANISMS/mL ESCHERICHIA COLI VARIANT 50,000 to 100,000 ORGANISMS/mL NORMAL URO GENITAL NADINE Susceptibility Escherichia Coli (1) JASON METHOD AMP/SULBACTAM >=32/16 Resistant Ampicillin >=32 Resistant Cefazolin >=64 Resistant Ceftriaxone >=64 Resistant Ciprofloxacin >=4 Resistant Ertapenem <=0.12 Susceptible ESBL Test POSITIVE [1] Gentamicin >=16 Resistant Levofloxacin >=8 Resistant Nitrofurantoin 128 Resistant PIPERACIL/TAZOBACTAM 16 SUSCEPTIBLE (DOSE DEPENDENT) Tobramycin >=16 Resistant TRIMETH/SULFAMETHOXAZOLE >=16/304 Resistant [1] Organism produces an extended spectrum beta lactamase (ESBL). It may be clinically resistant to therapy with penicillins, cephalosporins, or aztreonam. Contact laboratory if further information is required. Susceptibility Escherichia Coli (2) JASON METHOD AMP/SULBACTAM >=32/16 Resistant Ampicillin >=32 Resistant Cefazolin >=64 Resistant Ceftriaxone >=64 Resistant Ciprofloxacin >=4 Resistant Ertapenem <=0.12 Susceptible [1] ESBL Test POSITIVE [2] Gentamicin >=16 Resistant Levofloxacin >=8 Resistant Nitrofurantoin 128 Resistant PIPERACIL/TAZOBACTAM 16 SUSCEPTIBLE (DOSE DEPENDENT) Tobramycin >=16 Resistant TRIMETH/SULFAMETHOXAZOLE >=16/304 Resistant [1] CLIA ID [id number] [2] Organism produces an extended spectrum beta lactamase (ESBL). It may be clinically resistant to therapy with penicillins, cephalosporins, or aztreonam. Contact laboratory if further information is required. Lines/Drains PICC Single Lumen 08/03/20 (Active) Hemodialysis Catheter Double Cuffed Right Internal Jugular (Active) Hemodialysis Catheter Triple 10/03/22 Cuffed Right Subclavian (Active) Peripheral IV 11/07/23 Left Antecubital (Active) Line Status Blood return noted;Flushed;Saline locked 11/07/23 1229 Site Assessment Clean;Dry;Intact 11/07/23 1229 Dressing Type Transparent 11/07/23 1229 Dressing Status Clean;Dry;Intact 11/07/23 1229 Urinary Catheter 11/07/23 Single lumen (Active) Catheter Status Patent 11/07/23 1238 Site Assessment Clean;Skin intact 11/07/23 1238 Collection Container Standard drainage bag/container 11/07/23 1238 Securement Method Securing device (Describe) 11/07/23 1238 Reason for Continuing Physician order 11/07/23 1238 Urine Color Yellow/straw 11/07/23 1238 Urine Appearance Cloudy;Sediment;Mucous 11/07/23 1238 Surgical Airway 12/11/20 Shiley Cuffed 6 (Active) Surgical Airway Cuffed 6 (Active) Surgical Airway Shiley Cuffed 6 (Active) Surgical Airway 11/07/23 Shiley Cuffed 6 (Active) Status Secured 11/07/23 1458 Site Assessment Clean;Dry 11/07/23 1458 Ties Assessment Intact;Dry;Clean 11/07/23 1112 Emergency Equipment at Bedside Bag and mask;Suction 11/07/23 1458 ACTIVE PROBLEM LIST: Fall Left distal femur fracture s/p ORIF POD2 Chronic hypoxic, hypercapnic respiratory failure Ventilator dependence ESRD on HD Hyponatremia Hypomagnesemia - improved Chronic abdominal wound with possible cellulitis Hyperglycemia History of CAD ASSESSMENT/PLAN: Matthew Neal is a 58 y.o. female Presenting from [facility] with left femur fracture s/p fall rom bed. Chronic trach and daily dialysis dependant. 1. Neuro [facility] Meds: Sedation: none Analgesia: Tylenol, gabapentin, robaxin, Dilaudid PRN Other: Vimpat, Keppra, Flexeril, Prozac, Risperdal PMH: Anxiety, depression Home Meds: Tylenol, alprazolam, buspirone,prozac, gabapentin, vimpat, midodrine, keppra, narcan, oxycodone, risperidone, flexeril PSH: 2. Cardiovascular Hemodynamics: Tachycardic rate, regular rhythm Normotensive Pressors: none Goal MAP >65 Continuous cardiac monitoring Hospital Meds: midodrine PMH: NSTEMI, CAD, CHF Home Meds: Aspirin, atorvastatin PSH: Code Status: Full 3. Pulmonary Breathing Support: Ventilator Settings: PRVC, FiO2 40%, PEEP 8, RR 18 SpO2: 96% Continuous pulse oximetry Today's ABG: ph: 7.272 PCO2: 49.5 HCO3: 22.9 Hospital Meds: Albuterol PMH: COPD, Respiratory failure s/p tracheotomy Home Meds: Albuterol PSH: Surgical airway creation 4. 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 Renal/Genitourinary End stage renal disease Daily dialysis patient; patient has tunneled catheter Nephrology consulted and following Received x2 albumin yesterday and scheduled midodrine, along with 10mg PRN Daily Lokelma Dialysis today Electrolytes: Results from last 3 days Lab Units 11/11/23 0310 11/10/23 0200 11/09/23 0240 11/08/23 1730 SODIUM mmol/L 133* 132* 132* 130* CHLORIDE mmol/L 97* 95* 98 97* POTASSIUM mmol/L 4.5 4.1 4.9 4.9 CO2 mmol/L 23 19* 20* 20* BUN mg/dL 21 33* 53* 46* CREATININE mg/dL 3.08* 3.87* 5.02* 4.66* MAGNESIUM mg/dL -- 2.1 2.2 2.3 PHOSPHORUS mg/dL -- 4.8 5.3* 5.1* Will replace electrolytes PRN per ICU protocol Fluid Balance: IV Fluids: none UOP/24 H: 0mL Net Fluid/24H: -1.5 L Intake/Output Summary (Last 24 hours) at 11/11/2023 07 Last data filed at 11/11/2023 0600 Gross per 24 hour Intake 2180 ml Output 3720 ml Net -1540 ml Net Fluid Since Admission: Net IO Since Admission: -5,786.05 mL [11/11/23 0717] Strict monitoring of intake and output Hospital Meds: PMH: ESRD, daily dialysis Home Meds: Bumex PSH: None 6. Heme Labs: Results from last 3 days Lab Units 11/11/23 0310 11/10/23 0200 11/09/23 0850 11/09/23 0240 HEMOGLOBIN g/dL 7.7* 8.5* 8.7* 8.7* PLATELETS X10E9/L 116* 94* -- 92* Type and Screen: O RH+ Blood Products Administered: none Will continue to monitor hgb and transfuse PRN 7. ID Tmax/24H: Temp (24hrs), Av.8 C (98.2 F), Min:36.6 C (97.9 F), Max:36.9 C (98.4 F) Labs: Results from last 3 days Lab Units 11/11/23 0310 11/10/23 0200 11/09/23 0240 WBC X10E9/L 6.3 7.2 6.6 Hospital Meds: Antibiotics: none Continue to monitor for signs of infection 8. Endocrine Results from last 3 days Lab Units 11/11/23 0531 11/11/23 0310 11/10/23 2334 BEDSIDE GLUCOSE mg/dL 134* -- 182* GLUCOSE mg/dL -- 139* -- Goal Blood Glucose <180 mg/dL Hospital Meds: SSI, Lantus BID PMH: Type 1 diabetes mellitus Home Meds: Lantus, HumaLOG, levothyroxine PSH: None 9. Musculoskeletal Left distal femur fracture, displaced, closed CT scan of [facility] 11/06: Comminuted distal femoral fracture with extension into the intercondylar portion of the knee S/p ORIF left distal femur 11/07 Appreciate orthopedic recs PMH: PSH: Home meds: PT/OT when able 10. Prophylaxis Respiratory: Peridex GI: none DVT: SCD Cuffs, SQ heparin 11. Lines, Drains, and Airway Hemodialysis catheter double lumen cuffed R IJ PICC line Hemodialysis cath triple lumen cuffed R subclavian 3x PIV Art line R Radial NG Restrepo Tracheostomy Dispo: Okay to transfer to progressive floor. Vicenta Wei MD Emergency Medicine Resident, PGY-2 Associated attestation - Leah Eric MD - 11/11/2023 8:10 AM EDT ------ATTENDING NOTE ----- I saw the patient. I Performed or participated and was physically present during the critical/finley portions of the service. I was directly involved in the management and treatment plan of the patient. I reviewed the resident's note. Electronically signed by Leah Eric MD [facility] Robotic Surgery Trauma, Acute Care Surgery and Surgical Critical Care 3.5 hour HD treatment completed with 2 doses of SPA and 1 dose of Midodrine for BP support. BP improve during second half of tx. DCL functioned well and w/o issue. Fluid removal of 2.1 liter per post tx bed scale weight. Post weight 149.3kg Report to primary care RN. Orthopedic Progress Note Subjective Patient awake in bed. Objective BP 98/45 Pulse 114 Temp 36.8 C (98.3 F) (Oral) Resp 12 Ht 152.4 cm (5') Wt (!) 152.8 kg (336 lb 13.8 oz) SpO2 97% BMI 65.79 kg/m O2 Device: Trach In-situ Lab Results Component Value Date WBC 7.2 11/10/2023 HGB 8.5 (L) 11/10/2023 HCT 26.4 (L) 11/10/2023 MCV 100 11/10/2023 PLT 94 (L) 11/10/2023 Lab Results Component Value Date GLU 139 (H) 11/10/2023 CALCIUM 9.0 11/10/2023 K 4.1 11/10/2023 CO2 19 (L) 11/10/2023 BUN 33 (H) 11/10/2023 CREATININE 3.87 (H) 11/10/2023 Lab Results Component Value Date INR 1.0 11/07/2023 INR 1.0 11/07/2023 INR 1.1 07/17/2023 PROTIME 11.7 11/07/2023 PROTIME 12.2 11/07/2023 PROTIME 12.4 07/17/2023 left LE: Dressing clean dry intact, dressing removed, incisions approximated with cristiane, no erythema, no drainage SILT s/s/sp/dp/pt, + motor fxn EHL, FHL Comparments & calves soft and compressible Palpable pulses with BCR x 5 Assessment/Plan : Matthew Neal is a 58 yrs female s/p ORIF left distal femur fracture PLAN NWB left lower extremity Simple daily dry dressing changes to left thigh as needed PT/OT- mobilize Calcium and vitamin-D supplementation Ice/elevation DVT Proph: SubQ heparin, SCDs bilaterally RJ Patel PA-C 11/10/23 1300 Reason for Follow up: ESRD. Assessment: End-stage renal disease, on a Tuesday through Tuesday schedule at [facility]. Hyponatremia. Mild hyperkalemia, improved. Hypomagnesemia. Hyperphosphatemia. Anasarca. Hypotension. Anemia. Plan: Will use iv Albumin and oral Midodrine with HD. Monitor blood pressure. Will discontinue daily Lokelma. Continue low dose magnesium oxide. We will follow phosphorus level and adjust binders as needed. We will follow H&H and start erythropoeitin stimulating agent as needed. On thickened diet. Acid Base status stable and at target. K and Phos at target. We will follow up chemistries. Avoid Lovenox and Fleets enema. We will continue dialysis on to schedule. Please do not hesitate to call with questions. SUBJECTIVE: Appears comfortable. Review Of Systems: Constitutional: No fever, chills, lethargy, weakness and wt loss. Cardiac: No chest pain, dyspnea, orthopnea or PND. Chest: No cough, phlegm or wheezing. Abdomen: No nausea, no vomiting or diarrhea. : No hematuria, pyuria, dysuria or flank pain. Extremities: No swelling or joint pains. Scheduled Meds: acetaminophen, 1,000 mg, oral, Q8H atorvastatin, 20 mg, oral, Daily chlorhexidine, 15 mL, mouth/throat, BID cholecalciferol (vitamin D3), 2,000 Units, oral, Daily darbepoetin linda (ARANESP) injection, 100 mcg, subcutaneous, Weekly FLUoxetine, 30 mg, oral, Daily gabapentin, 100 mg, oral, TID heparin (porcine), 7,500 Units, subcutaneous, Q8H YOLA insulin lispro, 2-10 Units, subcutaneous, Q6H lacosamide, 50 mg, nasogastric, BID levETIRAcetam, 500 mg, oral, TID levothyroxine, 175 mcg, oral, Daily magnesium oxide, 400 mg, oral, Daily methocarbamoL, 500 mg, oral, TID midodrine, 5 mg, g-tube, TID risperiDONE, 1 mg, oral, Daily sevelamer carbonate, 3,200 mg, nasogastric, TID with meals sodium chloride, 10 mL, intravenous, Q96H sodium chloride, 10 mL, intravenous, Q96H sodium citrate, 2 mL, intravenous, Q96H sodium citrate, 2 mL, intravenous, Q96H sodium hypochlorite, 1 Application, topical, BID sodium zirconium cyclosilicate, 10 g, oral, Daily with lunch sterile water (PF), 4.4 mL, injection, OnceContinuous Infusions: sodium chloride 0.9 %, 3 mL/hr, Last Rate: 3 mL/hr (11/09/232107) PRN Meds: albumin human albuterol barium sulfate barium sulfate HYDROmorphone midodrine oxyCODONE sodium chloride sodium chloride sodium chloride sodium chloride sodium citrate sodium citrate Allergies Allergen Reactions Iodinated Contrast Media Shortness Of Breath Morphine Shortness Of Breath Fentanyl Patient gets burning and abdominal cramps Gadolinium-Containing Contrast Media Zosyn [Piperacillin-Tazobactam] Physical Exam: Blood pressure 104/68, pulse (!) 122, temperature 36.8 C (98.3 F), temperature source Oral, resp. rate 16, height 152.4 cm (5'), weight (!) 152.8 kg (336 lb 13.8 oz), SpO2 98%. Intake/Output Summary (Last 24 hours) at 11/10/2023 1150 Last data filed at 11/10/2023 1100 Gross per 24 hour Intake 1103.95 ml Output 4470 ml Net -3366.05 ml General: in no distress. HEENT: Atraumatic, normocephalic. Anicteric sclera. [place] and moist oral mucosa. No carotid bruit. No JVD. Chest: Bilateral air entry, clear to auscultation, no wheezing, rhonchi or rales. Cardiovascular: RRR, S1S2, no murmur, rub or gallop. Has lower extremity edema. Abdomen: Soft, non tender to palpation. Active bowel sounds x 4 quadrants. Musculoskeletal: No cyanosis or clubbing. Integumentary: [place], warm and dry. Free from rash or lesions. Skin turgor normal. FLIGHT TECHNICIAN: Face symmetrical. No tremor. Data: CBC: Lab Results Component Value Date WBC 7.2 11/10/2023 HGB 8.5 (L) 11/10/2023 HCT 26.4 (L) 11/10/2023 MCV 100 11/10/2023 PLT 94 (L) 11/10/2023 BMP: Lab Results Component Value Date K 4.1 11/10/2023 CL 95 (L) 11/10/2023 CO2 19 (L) 11/10/2023 BUN 33 (H) 11/10/2023 CREATININE 3.87 (H) 11/10/2023 CMP: Lab Results Component Value Date K 4.1 11/10/2023 CL 95 (L) 11/10/2023 CO2 19 (L) 11/10/2023 BUN 33 (H) 11/10/2023 CREATININE 3.87 (H) 11/10/2023 CALCIUM 9.0 11/10/2023 ALKPHOS 182 (H) 11/07/2023 AST 11 11/07/2023 ALT 15 11/07/2023 Hepatic: Lab Results Component Value Date AST 11 11/07/2023 ALT 15 11/07/2023 ALKPHOS 182 (H) 11/07/2023 BNP: Lab Results Component Value Date BNP 101 (H) 07/17/2023 Lipids: Lab Results Component Value Date CHOL 95 (L) 09/30/2023 HDL 32 (L) 09/30/2023 INR: Lab Results Component Value Date INR 1.0 11/07/2023 PTH: No results found for: PTH Phosphorus: No results found for: PHOS Ionized Calcium: No components found for: IONCA Magnesium: Lab Results Component Value Date MG 2.1 11/10/2023 Albumin: No components found for: LABALBU Last 3 CK, CKMB, Troponin: URINE:)No results found for: NAUR , PROTUR Radiology: Reviewed. - Calin Randall MD 11/10/23 11:50 AM .traumaTRAUMA SURGERY - PROGRESS NOTE Patient: Matthew Neal Date of : 1965 AGE 58 y.o. SEX female Assessment / Plan This is a 58 y.o. female with Injuries/Traumatic issues: Fall from bed - PT/OT when able - Tertiary examination, completed 11/08: Pt palpated from clavicles to fingertips and hips to feet bilaterally, no additional areas of pain were noted to indicate missed injury. Left Distal femur Fracture - Ortho surgery consulted: appreciate recommendations - CT Left Knee: Comminuted distal femoral fracture with extension into the intercondylar portion of the knee. - 11/07 OR-->ORIF Left femur -Vit D, 6-12 weeks DVT ppx on DC Chronic respiratory failure - Tracheostomy in place, ventilator dependent secondary to chronic respiratory failure, COPD - currently on a rate control, no increasing oxygen demand, diminished left breath sounds he was chronic in nature after reviewing previous CTs ESRD - R. Sided tunneled dialysis catheter in place - Consult nephrology: For dialysis, hyperkalemic K+ 5.7 - On HD - per chart review Chronic abdominal wound - Packed with wet to dry dressing with saline soaked gauze - CT abdomen: Concerning for cellulitis near wound site - Follows with Dr. Gunderson [facility] for chronic infected Mesh DM 2 - Insulin sliding scale and Lantus BID, restart when able Lines and Tubes: PIV, trach, tunneled dialysis line, erstrepo catheter Nutrition: Okay for diet per trauma Prophylaxis: SCDs, chemical prophylaxis held pending ortho evaluation Disposition: Okay to progressive per trauma Medical Decision Making: High Subjective Pt doing well. Okay to transfer out of the ICU to progressive. Objective Vital signs: Vitals: 11/10/23 0355 11/10/23 0400 11/10/23 0500 11/10/23 0700 BP: Pulse: 115 115 110 Resp: 22 22 22 Temp: 36.9 C (98.5 F) TempSrc: Oral SpO2: 97% 97% 98% Weight: Height: Temperature Range Last 24 Hours : Temp: 36.9 C (98.5 F) Temp Av.1 C (98.8 F) Min: 36.8 C (98.3 F) Max: 37.4 C (99.3 F) Admit Weight: (Bed scale not functioning, will exchange bed.) Body mass index is 65.79 kg/m . Last Weights: Wt Readings from Last 3 Encounters: 11/09/23 (!) 152.8 kg (336 lb 13.8 oz) 11/07/23 (!) 158.6 kg (349 lb 9.6 oz) 07/17/23 (!) 166.5 kg (367 lb) I/O's: Intake/Output Summary (Last 24 hours) at 11/10/2023 0734 Last data filed at 11/10/2023 0700 Gross per 24 hour Intake 1103.95 ml Output 4470 ml Net -3366.05 ml Physical Exam HEENT: Atraumatic EOMI PERRL 3mm Neck: Trachea Midline -Trach Non Tender to palpation No pain with Flex / Ext / Lat Flex / Rotation, Axial Load & distraction Lungs:Good air movement B, CTA B, No Ronchi, No Wheeze, absent breathe sounds on the left No Chest wall tenderness, No Crepitus Unlabored, Ventilator Heart: Heart tones present, No Murmur noted, No CP, No palpitations Abd: Distended, rotund, abdominal wound No seatbelt sign / Brusing Non Tender RUQ / LUQ / RLQ / LLQ Extremities: Moves all extrmeities -Right leg pain a tthe knee--immobilizer in place Pulses 1+ x 4 No calf/thigh tenderness Neuro: Alert, pleasant, +commands, mouths words appropriately Labs Results from last 7 days Lab Units 11/10/23 0200 11/09/23 0850 11/09/23 0240 11/08/23 1730 11/08/23 0310 11/07/23 1824 WBC X10E9/L 7.2 -- 6.6 10.2 7.1 6.3 HEMOGLOBIN g/dL 8.5* 8.7* 8.7* 9.7* 10.6* 10.9* HEMATOCRIT % 26.4* 27.0* 27.4* 30.7* 32.7* 33.2* PLATELETS X10E9/L 94* -- 92* 101* 94* 91* Results from last 7 days Lab Units 11/10/23 0539 11/10/23 0200 11/09/23 2233 11/09/23 1624 11/09/23 1051 11/09/23 0542 11/09/23 0240 11/08/23 1742 11/08/23 1730 11/08/23 0525 11/08/23 0310 11/07/23 2324 11/07/23 1824 SODIUM mmol/L -- 132* -- -- -- -- 132* -- 130* -- 132* -- 129* POTASSIUM mmol/L -- 4.1 -- -- -- -- 4.9 -- 4.9 -- 4.5 -- 5.2* CO2 mmol/L -- 19* -- -- -- -- 20* -- 20* -- 22 -- 22 BUN mg/dL -- 33* -- -- -- -- 53* -- 46* -- 44* -- 69* CREATININE mg/dL -- 3.87* -- -- -- -- 5.02* -- 4.66* -- 4.31* -- 5.26* BEDSIDE GLUCOSE mg/dL 142* -- 87 115* 120* < > -- < > -- < > -- < > -- GLUCOSE mg/dL -- 141* -- -- -- -- 154* -- 188* -- 189* -- 219* < > = values in this interval not displayed. Results from last 7 days Lab Units 11/07/23 1510 11/07/23 1115 INR 1.0 1.0 PROTIME sec 11.7 12.2 APTT sec 33 34 Recent Studies No results found. Allergies Allergies Allergen Reactions Iodinated Contrast Media Shortness Of Breath Morphine Shortness Of Breath Fentanyl Patient gets burning and abdominal cramps Gadolinium-Containing Contrast Media Zosyn [Piperacillin-Tazobactam] Current Medications SCHEDULED acetaminophen, 1,000 mg, oral, Q8H atorvastatin, 20 mg, oral, Daily chlorhexidine, 15 mL, mouth/throat, BID cholecalciferol (vitamin D3), 2,000 Units, oral, Daily darbepoetin linda (ARANESP) injection, 100 mcg, subcutaneous, Weekly FLUoxetine, 30 mg, oral, Daily gabapentin, 100 mg, oral, TID heparin (porcine), 5,000 Units, subcutaneous, Q8H YOLA insulin lispro, 2-10 Units, subcutaneous, Q6H lacosamide, 50 mg, nasogastric, BID levETIRAcetam, 500 mg, oral, TID levothyroxine, 175 mcg, oral, Daily magnesium oxide, 400 mg, oral, Daily methocarbamoL, 500 mg, oral, TID midodrine, 5 mg, g-tube, TID risperiDONE, 1 mg, oral, Daily sevelamer, 3,200 mg, oral, TID with meals sodium chloride, 10 mL, intravenous, Q96H sodium chloride, 10 mL, intravenous, Q96H sodium citrate, 2 mL, intravenous, Q96H sodium citrate, 2 mL, intravenous, Q96H sodium hypochlorite, 1 Application, topical, BID sodium zirconium cyclosilicate, 10 g, oral, Daily with lunch sterile water (PF), 4.4 mL, injection, Once PRN albumin human albuterol HYDROmorphone midodrine oxyCODONE sodium chloride sodium chloride sodium chloride sodium chloride sodium citrate sodium citrate Current Infusions sodium chloride 0.9 %, 3 mL/hr, Last Rate: 3 mL/hr (11/09/232107) ROBERT Gross 11/10/23 0749 Images from the original note were not included. SICU Academic Critical Care Progress Name: Matthew Neal Date: 11/10/2023 Length of Stay: 3 day(s) Chief Complaint: Fall, left leg injury History of Present Illness: Matthew Neal is a 58 y.o. female with PMH of NSTEMI, diabetes, congestive heart failure, end-stage renal disease s/p tunneled cath, and respiratory failure s/p tracheostomy who presents from OSH with left leg injury. Patient reportedly fell out of bed at LTAC she resides at and rolled her left leg. She immediately began experiencing pain and swelling over left leg. Denies head injury or LOC. Not currently anticoagulated. Overnight Events: Received dialysis yesterday. Post weight down 2.6kg. BP stable throughout. Patient is improving and has transfer orders to progressive floor. Past Medical History: Diagnosis Date Anemia CHF (congestive heart failure) ([facility]) Diabetes ([facility]) Morbid obesity ([facility]) NSTEMI (non-ST elevated myocardial infarction) ([facility]) Respiratory failure ([facility]) Past Surgical History: Procedure Laterality Date OPEN REDUCTION INTERNAL FIXATION FEMUR Left 11/08/2023 Performed by Jagdish Vasquez MD at [facility] Medications Prior to Admission Medication Sig Dispense Refill Last Dose acetaminophen (TYLENOL) 325 mg tablet Take 2 tablets (650 mg total) by mouth every 6 (six) hours as needed for fever. Other - as prescribed albuterol (PROVENTIL,VENTOLIN) 2.5 mg /3 mL (0.083 %) nebulizer solution Inhale 3 mL (2.5 mg total) by nebulization every 4 (four) hours as needed for shortness of breath. Other - as prescribed ALPRAZolam (XANAX) 0.5 mg tablet Take 1 tablet (0.5 mg total) by mouth in the morning and 1 tablet (0.5 mg total) before bedtime. ALPRAZolam (XANAX) 1 mg tablet Take 1 tablet (1 mg total) by mouth in the morning and 1 tablet (1 mg total) before bedtime. Indications: anxious. aspirin 81 mg Take 1 tablet (81 mg total) by mouth in the morning. atorvastatin (LIPITOR) 20 mg tablet Take 1 tablet (20 mg total) by mouth in the morning. bumetanide (BUMEX) 1 mg tablet Take 2 tablets (2 mg total) by mouth daily. busPIRone (BUSPAR) 10 mg tablet Take 1 tablet (10 mg total) by mouth in the morning and 1 tablet (10 mg total) before bedtime. busPIRone (BUSPAR) 7.5 mg tablet Take 1 tablet (7.5 mg total) by mouth in the morning. cholecalciferol (VITAMIN D3) 1,000 units tablet Take 2 tablets (2,000 Units total) by mouth in the morning. Indications: low vitamin D levels. cyclobenzaprine (FLEXERIL) 5 mg tablet Take 2 tablets (10 mg total) by mouth every 6 (six) hours. Other - as prescribed dicyclomine (BENTYL) 10 mg capsule Take 1 capsule (10 mg total) by mouth 3 (three) times a day. epoetin beta, methoxy peg (MIRCERA) 75 mcg/0.3 mL syringe Inject 75 mcg as directed every 14 (fourteen) days. FLUoxetine (PROzac) 20 mg capsule Take 30 mg by mouth in the morning. folic acid-B nhgo-J-wmwaa-zinc (DIALYVITE) 3-70-15 mg-mcg-mg tablet Take 1 tablet by mouth in the evening. gabapentin (NEURONTIN) 100 mg capsule Take 1 capsule (100 mg total) by mouth 3 (three) times a day. insulin glargine (LANTUS, BASAGLAR) 100 unit/mL (3 mL) insulin pen Inject 20 Units under the skin in the morning and 20 Units in the evening. Inject before meals. (Patient taking differently: Inject 32 Units under the skin in the morning and 32 Units in the evening. Inject before meals.) 15 mL 12 insulin lispro (HumaLOG) 100 unit/mL insulin pen [...] mg/dL, give 10 units. 15 mL 12 insulin lispro (HumaLOG) 100 unit/mL insulin pen Inject 2-8 Units under the skin nightly. Bedtime hyperglycemia dosing. For glucose 201-250 mg/dL, give 2 units. For glucose 251-300 mg/dL, give 4 units. For glucose 301-350 mg/dL, give 6 units. For glucose 351-400 mg/dL, give 8 units. 15 mL 12 lacosamide (VIMPAT) 100 mg tablet Take 0.5 tablets (50 mg total) by mouth in the morning and 0.5 tablets (50 mg total) before bedtime. levETIRAcetam (KEPPRA) 1000 mg tablet Take 0.5 tablets (500 mg total) by mouth 3 (three) times a day. levothyroxine (SYNTHROID, LEVOTHROID) 175 MCG tablet Take 1 tablet (175 mcg total) by mouth in the morning. midodrine (PROAMATINE) 10 mg tablet Take 1 tablet (10 mg total) by mouth as needed (Hemodialysis - PRN at initiation and midway through dialysis session). 90 tablet 3 Other - as prescribed naloxone (NARCAN) 4 mg/actuation spray,non-aerosol nasal spray Administer 1 spray (4 mg total) into alternating nostrils as needed for opioid reversal. 3 each 3 Other - as prescribed ondansetron (ZOFRAN) 4 mg tablet Take 1 tablet (4 mg total) by mouth every 6 (six) hours as needed for nausea or vomiting. Other - as prescribed oxycodone HCl (OXYCODONE ORAL) Take 5 mg by mouth every 6 (six) hours as needed. Other - as prescribed pantoprazole (PROTONIX) 40 mg EC tablet Take 1 tablet (40 mg total) by mouth in the morning. polyethylene glycol (GLYCOLAX) 17 gram/dose powder Take 17 g by mouth in the morning. potassium chloride (KLOR-CON M 20) 20 MEQ CR tablet Take 1 tablet (20 mEq total) by mouth in the morning. risperiDONE (RisperDAL) 1 mg tablet Take 1 tablet (1 mg total) by mouth in the morning. sennosides-docusate sodium (SENOKOT-S) 8.6-50 mg Take 1 tablet by mouth every 12 (twelve) hours as needed for constipation. (Patient taking differently: Take 1 tablet by mouth once daily at bedtime.) 60 tablet 3 sevelamer (RENVELA) 800 mg tablet Take 4 tablets (3,200 mg total) by mouth in the morning and 4 tablets (3,200 mg total) at noon and 4 tablets (3,200 mg total) in the evening. Take with meals. albuterol (ACCUNEB) 0.63 mg/3 mL nebulizer solution Inhale 3 mL (0.63 mg total) by nebulization every 6 (six) hours as needed for wheezing. predniSONE (DELTASONE) 20 mg tablet Take 1 tablet (20 mg total) by mouth in the morning. (Patient not taking: Reported on 11/07/2023) Unknown acetaminophen, 1,000 mg, oral, Q8H atorvastatin, 20 mg, oral, Daily chlorhexidine, 15 mL, mouth/throat, BID cholecalciferol (vitamin D3), 2,000 Units, oral, Daily darbepoetin linda (ARANESP) injection, 100 mcg, subcutaneous, Weekly FLUoxetine, 30 mg, oral, Daily gabapentin, 100 mg, oral, TID heparin (porcine), 5,000 Units, subcutaneous, Q8H YOLA insulin lispro, 2-10 Units, subcutaneous, Q6H lacosamide, 50 mg, nasogastric, BID levETIRAcetam, 500 mg, oral, TID levothyroxine, 175 mcg, oral, Daily magnesium oxide, 400 mg, oral, Daily methocarbamoL, 500 mg, oral, TID midodrine, 5 mg, g-tube, TID risperiDONE, 1 mg, oral, Daily sevelamer, 3,200 mg, oral, TID with meals sodium chloride, 10 mL, intravenous, Q96H sodium chloride, 10 mL, intravenous, Q96H sodium citrate, 2 mL, intravenous, Q96H sodium citrate, 2 mL, intravenous, Q96H sodium hypochlorite, 1 Application, topical, BID sodium zirconium cyclosilicate, 10 g, oral, Daily with lunch sterile water (PF), 4.4 mL, injection, Once sodium chloride 0.9 %, 3 mL/hr, Last Rate: 3 mL/hr (11/09/232107) Allergies Allergen Reactions Iodinated Contrast Media Shortness Of Breath Morphine Shortness Of Breath Fentanyl Patient gets burning and abdominal cramps Gadolinium-Containing Contrast Media Zosyn [Piperacillin-Tazobactam] History reviewed. No pertinent family history. Social History Socioeconomic History Marital status: Tobacco Use Smoking status: Never Smokeless tobacco: Never Vaping Use Vaping status: Never Used Substance and Sexual Activity Alcohol use: Not Currently Drug use: Never Sexual activity: Defer Other Topics Concern Caffeine Use Yes Social Determinants of Health Food Insecurity: No Food Insecurity (11/07/2023) Hunger Screening Food Insecurity - Worry: Never True Food Insecurity - Inability: Never True Transportation Needs: No Transportation Needs (11/07/2023) PRAPARE - Transportation Lack of Transportation (Medical): No Lack of Transportation (Non-Medical): No Physical Activity: Inactive (09/14/2023) Received from [facility] Exercise Vital Sign Days of Exercise per Week: 0 days Minutes of Exercise per Session: 0 min Stress: No Stress Concern Present (09/14/2023) Received from [facility] [employer] [place] [employer] - Occupational Stress Questionnaire Feeling of Stress : Not at all Interpersonal Safety: Not At Risk (11/07/2023) Humiliation, Afraid, Rape, and Kick questionnaire Fear of Current or Ex-Partner: No Emotionally Abused: No Physically Abused: No Sexually Abused: No Housing Instability: Low Risk (11/07/2023) Housing Instability Housing Instability: No Temp: [36.8 C (98.2 F)-37.4 C (99.3 F)] 37.2 C (98.9 F) Pulse: [105-121] 110 Resp: [15-23] 22 Arterial Line BP: (81-134)/(43-69) 100/48 FiO2 (%): [40 %] 40 % SpO2: [96 %-100 %] 98 % O2 Device: Trach In-situ O2 Device: Trach In-situ Physical Exam General: Awake, alert and oriented x3, in no acute distress HENT: Head atraumatic, normocephalic, external ears and nose are normal Eyes: Conjunctivae clear, non-icteric, EOMI Pulmonary: Regular, non-labored respirations, tracheostomy Cardiovascular: Regular rate and rhythm, radial pulses 2+, moderately edematous b/l lower extremities Abdomen: Soft, non-tender, non-distended, obese abdomen Musculoskeletal: Limited ROM L lower extremity s/p surgical repair, R lower extremity normal ROM without obvious deformity Neurological: No gross neurologic deficit, sensation grossly intact Skin: Warm, dry, without jaundice Ventilator Settings Vent Mode: PRVC-AC FiO2 (%): 40 % Resp Rate (Set): 22 Vt (Set, mL): 400 mL Avea Vt (Set, L): 0.4 Liter PEEP/CPAP (cm H2O): 8 cm H20 Insp Time (sec): 0.92 sec Pressure Support Above PEEP Set (cm H2O): 15 cm H20 Trigger Sensitivity Flow (L/min): 1 L/min Trigger Sensitivity Pressure (cm H2O): 3 cm H2O Humidification: Heater Heater Temperature: 37 C (98.6 F) Results from last 3 days Lab Units 11/10/23 0200 11/09/23 0240 11/08/23 1730 11/08/23 0310 11/07/23 1824 11/07/23 1510 11/07/23 1115 BUN mg/dL 33* 53* 46* 44* 69* 74* 78* CREATININE mg/dL 3.87* 5.02* 4.66* 4.31* 5.26* 5.85* 5.72* POTASSIUM mmol/L 4.1 4.9 4.9 4.5 5.2* 5.7* 5.7* CO2 mmol/L 19* 20* 20* 22 22 22 22 CHLORIDE mmol/L 95* 98 97* 97* 92* 91* 89* MAGNESIUM mg/dL 2.1 2.2 2.3 1.7* 1.7* -- 1.8 AST U/L -- -- -- -- 11 11 -- ALT U/L -- -- -- -- 15 18 -- ALK PHOS U/L -- -- -- -- 182* 210* -- Results from last 3 days Lab Units 11/07/23 1510 11/07/23 1115 INR 1.0 1.0 PROTIME sec 11.7 12.2 Results from last 3 days Lab Units 11/10/23 0200 11/09/23 0850 11/09/23 0240 11/08/23 1730 11/08/23 0310 11/07/23 1824 11/07/23 1510 11/07/23 1115 WBC X10E9/L 7.2 -- 6.6 10.2 7.1 6.3 7.4 7.7 HEMOGLOBIN g/dL 8.5* 8.7* 8.7* 9.7* 10.6* 10.9* 11.5* 11.4* HEMATOCRIT % 26.4* 27.0* 27.4* 30.7* 32.7* 33.2* 34.4* 35.4 PLATELETS X10E9/L 94* -- 92* 101* 94* 91* 90* 105* MCV fL 100 -- 99 99 98 97 97 98 MCH pg 32.3 -- 31.2 31.5 31.8 32.0 32.6 31.7 MCHC g/dL 32.3 -- 31.7* 31.6* 32.4 32.9 33.5 32.2 RDW % 15.3* -- 15.6* 15.6* 15.7* 15.5* 15.9* 15.9* EOS ABS AUTO X10E9/L -- -- -- 0.2 0.1 0.1 0.1 0.2 Microbiology Results Procedure Component Value Units Date/Time Urine culture [[id number]] (Abnormal) (Susceptibility) Collected: 11/07/23 1227 Specimen: Urine from Restrepo Catheter Specimen Updated: 11/09/23 1617 Culture >100,000 ORGANISMS/mL ESCHERICHIA COLI SUSCEPTIBILITY CONFIRMATION TESTING IN PROGRESS >100,000 ORGANISMS/mL ESCHERICHIA COLI VARIANT 50,000 to 100,000 ORGANISMS/mL NORMAL URO GENITAL NADINE Susceptibility Escherichia Coli JASON METHOD (Preliminary) AMP/SULBACTAM >=32/16 Resistant Ampicillin >=32 Resistant Cefazolin >=64 Resistant Ceftriaxone >=64 Resistant Ciprofloxacin >=4 Resistant Ertapenem <=0.12 Susceptible [1] ESBL Test POSITIVE [2] Gentamicin >=16 Resistant Levofloxacin >=8 Resistant Nitrofurantoin 128 Resistant PIPERACIL/TAZOBACTAM 16 SUSCEPTIBLE (DOSE DEPENDENT) Tobramycin >=16 Resistant TRIMETH/SULFAMETHOXAZOLE >=16/304 Resistant [1] CLIA ID [id number] [2] Organism produces an extended spectrum beta lactamase (ESBL). It may be clinically resistant to therapy with penicillins, cephalosporins, or aztreonam. Contact laboratory if further information is required. Glucose Results from last 7 days Lab Units 11/10/23 0539 11/10/23 0200 11/09/23 2233 11/09/23 1624 11/09/23 1051 11/09/23 0542 11/09/23 0240 11/08/23 2256 11/08/23 1742 11/08/23 1730 11/08/23 1123 11/08/23 0525 BEDSIDE GLUCOSE mg/dL 142* -- 87 115* 120* 158* -- 159* 205* -- 149* 187* GLUCOSE mg/dL -- 141* -- -- -- -- 154* -- -- 188* -- -- I/O last 3 completed shifts: In: 1964 [I.V.:824; Other:200; NG/GT:240; IV Piggyback:700] Out: 3920 [Urine:100; Emesis/NG output:150; Other:3470; Blood:200] acetaminophen, 1,000 mg, oral, Q8H atorvastatin, 20 mg, oral, Daily chlorhexidine, 15 mL, mouth/throat, BID cholecalciferol (vitamin D3), 2,000 Units, oral, Daily darbepoetin linda (ARANESP) injection, 100 mcg, subcutaneous, Weekly FLUoxetine, 30 mg, oral, Daily gabapentin, 100 mg, oral, TID heparin (porcine), 5,000 Units, subcutaneous, Q8H YOLA insulin lispro, 2-10 Units, subcutaneous, Q6H lacosamide, 50 mg, nasogastric, BID levETIRAcetam, 500 mg, oral, TID levothyroxine, 175 mcg, oral, Daily magnesium oxide, 400 mg, oral, Daily methocarbamoL, 500 mg, oral, TID midodrine, 5 mg, g-tube, TID risperiDONE, 1 mg, oral, Daily sevelamer, 3,200 mg, oral, TID with meals sodium chloride, 10 mL, intravenous, Q96H sodium chloride, 10 mL, intravenous, Q96H sodium citrate, 2 mL, intravenous, Q96H sodium citrate, 2 mL, intravenous, Q96H sodium hypochlorite, 1 Application, topical, BID sodium zirconium cyclosilicate, 10 g, oral, Daily with lunch sterile water (PF), 4.4 mL, injection, Once sodium chloride 0.9 %, 3 mL/hr, Last Rate: 3 mL/hr (11/09/232107) Microbiology Results Procedure Component Value Units Date/Time Urine culture [[id number]] (Abnormal) (Susceptibility) Collected: 11/07/231226 Specimen: Urine from Restrepo Catheter Specimen Updated: 11/09/231616 Culture >100,000 ORGANISMS/mL ESCHERICHIA COLI SUSCEPTIBILITY CONFIRMATION TESTING IN PROGRESS >100,000 ORGANISMS/mL ESCHERICHIA COLI VARIANT 50,000 to 100,000 ORGANISMS/mL NORMAL URO GENITAL NADINE Susceptibility Escherichia Coli JASON METHOD (Preliminary) AMP/SULBACTAM >=32/16 Resistant Ampicillin >=32 Resistant Cefazolin >=64 Resistant Ceftriaxone >=64 Resistant Ciprofloxacin >=4 Resistant Ertapenem <=0.12 Susceptible [1] ESBL Test POSITIVE [2] Gentamicin >=16 Resistant Levofloxacin >=8 Resistant Nitrofurantoin 128 Resistant PIPERACIL/TAZOBACTAM 16 SUSCEPTIBLE (DOSE DEPENDENT) Tobramycin >=16 Resistant TRIMETH/SULFAMETHOXAZOLE >=16/304 Resistant [1] CLIA ID [id number] [2] Organism produces an extended spectrum beta lactamase (ESBL). It may be clinically resistant to therapy with penicillins, cephalosporins, or aztreonam. Contact laboratory if further information is required. Lines/Drains PICC Single Lumen 08/03/20 (Active) Hemodialysis Catheter Double Cuffed Right Internal Jugular (Active) Hemodialysis Catheter Triple 10/03/22 Cuffed Right Subclavian (Active) Peripheral IV 11/07/23 Left Antecubital (Active) Line Status Blood return noted;Flushed;Saline locked 11/07/231228 Site Assessment Clean;Dry;Intact 11/07/23 122 Dressing Type Transparent 11/07/231228 Dressing Status Clean;Dry;Intact 11/07/23 1229 Urinary Catheter 11/07/23 Single lumen (Active) Catheter Status Patent 11/07/23 1238 Site Assessment Clean;Skin intact 11/07/23 1238 Collection Container Standard drainage bag/container 11/07/23 1238 Securement Method Securing device (Describe) 11/07/23 1238 Reason for Continuing Physician order 11/07/23 1238 Urine Color Yellow/straw 11/07/23 1238 Urine Appearance Cloudy;Sediment;Mucous 11/07/23 1238 Surgical Airway 12/11/20 Shiley Cuffed 6 (Active) Surgical Airway Cuffed 6 (Active) Surgical Airway Shiley Cuffed 6 (Active) Surgical Airway 11/07/23 Shiley Cuffed 6 (Active) Status Secured 11/07/23 1458 Site Assessment Clean;Dry 11/07/23 1458 Ties Assessment Intact;Dry;Clean 11/07/23 1112 Emergency Equipment at Bedside Bag and mask;Suction 11/07/23 1458 ACTIVE PROBLEM LIST: Fall Left distal femur fracture s/p ORIF POD2 Chronic hypoxic, hypercapnic respiratory failure Ventilator dependence ESRD on HD Hyponatremia Hypomagnesemia - improved Chronic abdominal wound with possible cellulitis Hyperglycemia History of CAD ASSESSMENT/PLAN: Matthew Neal is a 58 y.o. female Presenting from LTAC with left femur fracture s/p fall rom bed. Chronic trach and daily dialysis dependant. 1. Neuro Hospital Meds: Sedation: none Analgesia: Tylenol, gabapentin, robaxin, Dilaudid PRN Other: Midodrine, Vimpat, Keppra, Flexeril, Prozac, Risperdal PMH: Anxiety, depression Home Meds: Tylenol, alprazolam, buspirone,prozac, gabapentin, vimpat, midodrine, keppra, narcan, oxycodone, risperidone, flexeril PSH: 2. Cardiovascular Hemodynamics: Tachycardic rate, regular rhythm Normotensive Pressors: none Goal MAP >65 Continuous cardiac monitoring Hospital Meds: PMH: NSTEMI, CAD, CHF Home Meds: Aspirin, atorvastatin PSH: Code Status: Full 3. Pulmonary Breathing Support: Ventilator Settings: PRVC, FiO2 40%, PEEP 8, RR 18 SpO2: 96% Continuous pulse oximetry Hospital Meds: Albuterol PMH: COPD, Respiratory failure s/p tracheotomy Home Meds: Albuterol PSH: Surgical airway creation 4. GI Chronic abdominal wound with possible cellulitis Packed wet to dry dressing with saline soaked gauze CTAP concerning for cellulitis Follows with Dr. 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 Renal/Genitourinary End stage renal disease Daily dialysis patient; patient has tunneled catheter Nephrology consulted and following Received x2 albumin yesterday and 5mg midodrine Daily Lokelma Dialysis today Metabolic acidosis Today's ABG: ph: 7.270 PCO2: 45.8 HCO3: 21.0 Respiratory rate increased yesterday 18>22 Electrolytes: Results from last 3 days Lab Units 11/10/23 0200 11/09/23 0240 11/08/23 1730 SODIUM mmol/L 132* 132* 130* CHLORIDE mmol/L 95* 98 97* POTASSIUM mmol/L 4.1 4.9 4.9 CO2 mmol/L 19* 20* 20* BUN mg/dL 33* 53* 46* CREATININE mg/dL 3.87* 5.02* 4.66* MAGNESIUM mg/dL 2.1 2.2 2.3 PHOSPHORUS mg/dL 4.8 5.3* 5.1* Will replace electrolytes PRN per ICU protocol Fluid Balance: IV Fluids: none UOP/24 H: 0mL Net Fluid/24H: -3.366 L Intake/Output Summary (Last 24 hours) at 11/10/2023 0656 Last data filed at 11/10/2023 0550 Gross per 24 hour Intake 1103.95 ml Output 4470 ml Net -3366.05 ml Net Fluid Since Admission: Net IO Since Admission: -4,276.05 mL [11/10/23 0656] Strict monitoring of intake and output Hospital Meds: PMH: ESRD, daily dialysis Home Meds: Bumex PSH: 6. Heme Labs: Results from last 3 days Lab Units 11/10/23 0200 11/09/23 0850 11/09/23 0240 11/08/23 1730 11/07/23 1824 11/07/23 1510 11/07/23 1115 HEMOGLOBIN g/dL 8.5* 8.7* 8.7* 9.7* < > 11.5* 11.4* PLATELETS X10E9/L 94* -- 92* 101* < > 90* 105* INR -- -- -- -- -- 1.0 1.0 < > = values in this interval not displayed. Type and Screen: O RH+ Blood Products Administered: none Will continue to monitor hgb and transfuse PRN 7. ID Tmax/24H: Temp (24hrs), Av.1 C (98.7 F), Min:36.8 C (98.2 F), Max:37.4 C (99.3 F) Labs: Results from last 3 days Lab Units 11/10/23 0200 11/09/23 0240 11/08/23 1730 WBC X10E9/L 7.2 6.6 10.2 Hospital Meds: Antibiotics: none Continue to monitor for signs of infection 8. Endocrine Results from last 3 days Lab Units 11/10/23 0539 11/10/23 0200 11/09/23 2233 BEDSIDE GLUCOSE mg/dL 142* -- 87 GLUCOSE mg/dL -- 141* -- Goal Blood Glucose <180 mg/dL Hospital Meds: SSI, Lantus BID PMH: Type 1 diabetes mellitus Home Meds: Lantus, HumaLOG, levothyroxine, prednisone PSH: None 9. Musculoskeletal Left distal femur fracture, displaced, closed CT scan of E 11/06: Comminuted distal femoral fracture with extension into the intercondylar portion of the knee S/p ORIF left distal femur 11/07 Appreciate orthopedic recs PMH: PSH: Home meds: PT/OT when able 10. Prophylaxis Respiratory: none GI: none DVT: SCD Cuffs, SQ heparin 11. Lines, Drains, and Airway Hemodialysis catheter double lumen cuffed R IJ PICC line Hemodialysis cath triple lumen cuffed R subclavian 3x PIV Art line R Radial NG Restrepo Tracheostomy Dispo: Okay to transfer to progressive floor. Vicenta Wei MD Emergency Medicine Resident, PGY-2 Associated attestation - Leah Eric MD - 11/10/2023 8:44 AM EDT ------ATTENDING NOTE ----- I saw the patient. I Performed or participated and was physically present during the critical/finley portions of the service. I was directly involved in the management and treatment plan of the patient. I reviewed the resident's note. Electronically signed by Leah Eric MD [facility] Surgeons Robotic Surgery Trauma, Acute Care Surgery and Surgical Critical Care Reason for Follow up: ESRD. Assessment: End-stage renal disease previously on a Tuesday through Tuesday schedule at senior care facility. Hyponatremia. Mild hyperkalemia. Hypomagnesemia. Hyperphosphatemia. Anasarca. Hypotension. Anemia. Plan: Will use iv Albumin and oral Midodrine with HD. Monitor blood pressure. Continue daily Lokelma. Continue low dose magnesium oxide. We will follow phosphorus level and adjust binders as needed. We will follow H&H and start erythropoeitin stimulating agent as needed. NPO now. Place on renal TF with fluid restriction of 1000 ml/24 hours once allowed to eat. Acid Base status stable and at target. K and Phos at target. We will follow up chemistries. Avoid Lovenox and Fleets enema. We will continue dialysis on to schedule. Please do not hesitate to call with questions. SUBJECTIVE: Appears comfortable. Review Of Systems: Unable to obtain as she is intubated. Scheduled Meds: acetaminophen, 1,000 mg, oral, Q8H alteplase, 2 mg, intravenous, Once alteplase, 2 mg, intravenous, Once atorvastatin, 20 mg, oral, Daily chlorhexidine, 15 mL, mouth/throat, BID cholecalciferol (vitamin D3), 2,000 Units, oral, Daily FLUoxetine, 30 mg, oral, Daily gabapentin, 100 mg, oral, TID heparin (porcine), 5,000 Units, subcutaneous, Q8H YOLA insulin lispro, 2-10 Units, subcutaneous, Q6H lacosamide, 50 mg, nasogastric, BID levETIRAcetam, 500 mg, oral, TID levothyroxine, 175 mcg, oral, Daily magnesium oxide, 400 mg, oral, Daily methocarbamoL, 500 mg, oral, TID midodrine, 5 mg, g-tube, TID risperiDONE, 1 mg, oral, Daily sevelamer, 3,200 mg, oral, TID with meals sodium chloride, 10 mL, intravenous, Q96H sodium chloride, 10 mL, intravenous, Q96H sodium citrate, 2 mL, intravenous, Q96H sodium citrate, 2 mL, intravenous, Q96H sodium zirconium cyclosilicate, 10 g, oral, Daily with lunch sterile water (PF), 4.4 mL, injection, OnceContinuous Infusions: sodium chloride 0.9 %, 3 mL/hr, Last Rate: 3 mL/hr (11/08/232057) PRN Meds: albumin human albuterol HYDROmorphone midodrine oxyCODONE sodium chloride sodium chloride sodium chloride sodium chloride sodium citrate sodium citrate Allergies Allergen Reactions Iodinated Contrast Media Shortness Of Breath Morphine Shortness Of Breath Fentanyl Patient gets burning and abdominal cramps Gadolinium-Containing Contrast Media Zosyn [Piperacillin-Tazobactam] Physical Exam: Blood pressure 104/68, pulse 106, temperature 37.3 C (99.1 F), temperature source Oral, resp. rate 17, height 152.4 cm (5'), weight (!) 154.1 kg (339 lb 11.7 oz), SpO2 97%. Intake/Output Summary (Last 24 hours) at 11/09/2023 1027 Last data filed at 11/09/2023 0700 Gross per 24 hour Intake 950 ml Output 400 ml Net 550 ml General: in no distress. HEENT: Atraumatic, normocephalic. Anicteric sclera. [place] and moist oral mucosa. No carotid bruit. No JVD. Chest: Bilateral air entry, clear to auscultation, no wheezing, rhonchi or rales. Cardiovascular: RRR, S1S2, no murmur, rub or gallop. Has lower extremity edema. Abdomen: Soft, non tender to palpation. Active bowel sounds x 4 quadrants. Musculoskeletal: No cyanosis or clubbing. Integumentary: [place], warm and dry. Free from rash or lesions. Skin turgor normal. FLIGHT TECHNICIAN: Face symmetrical. No tremor. Data: CBC: Lab Results Component Value Date WBC 6.6 11/09/2023 HGB 8.7 (L) 11/09/2023 HCT 27.0 (L) 11/09/2023 MCV 99 11/09/2023 PLT 92 (L) 11/09/2023 BMP: Lab Results Component Value Date K 4.9 11/09/2023 CL 98 11/09/2023 CO2 20 (L) 11/09/2023 BUN 53 (H) 11/09/2023 CREATININE 5.02 (H) 11/09/2023 CMP: Lab Results Component Value Date K 4.9 11/09/2023 CL 98 11/09/2023 CO2 20 (L) 11/09/2023 BUN 53 (H) 11/09/2023 CREATININE 5.02 (H) 11/09/2023 CALCIUM 8.5 11/09/2023 ALKPHOS 182 (H) 11/07/2023 AST 11 11/07/2023 ALT 15 11/07/2023 Hepatic: Lab Results Component Value Date AST 11 11/07/2023 ALT 15 11/07/2023 ALKPHOS 182 (H) 11/07/2023 BNP: Lab Results Component Value Date BNP 101 (H) 07/17/2023 Lipids: Lab Results Component Value Date CHOL 95 (L) 09/30/2023 HDL 32 (L) 09/30/2023 INR: Lab Results Component Value Date INR 1.0 11/07/2023 PTH: No results found for: PTH Phosphorus: No results found for: PHOS Ionized Calcium: No components found for: IONCA Magnesium: Lab Results Component Value Date MG 2.2 11/09/2023 Albumin: No components found for: LABALBU Last 3 CK, CKMB, Troponin: URINE:)No results found for: NAUR , PROTUR Radiology: Reviewed. - Calin Randall MD 11/09/23 10:27 AM TRAUMA SURGERY - PROGRESS NOTE Patient: Matthew Neal Date of : 1965 AGE 58 y.o. SEX female Assessment / Plan This is a 58 y.o. female with Injuries/Traumatic issues: Fall from bed -PT/OT when able Acute post traumatic pain - currently on tylenol, oxycodone Left Distal femur Fracture - Ortho surgery consulted: appreciate recommendations - CT Left Knee: Comminuted distal femoral fracture with extension into the intercondylar portion of the knee. - Left leg splint in place, NWB awaiting further ortho recs -Plan for OR 11/07 Chronic respiratory failure - Tracheostomy in place, ventilator dependent secondary to chronic respiratory failure, COPD - currently on a rate control, no increasing oxygen demand, diminished left breath sounds he was chronic in nature after reviewing previous CTs -Placed in the ISCU overnight ESRD - R. Sided tunneled dialysis catheter in place - Consult nephrology: For dialysis, hyperkalemic K+ 5.7 - On HD -- per chart review Chronic abdominal wound - Packed with wet to dry dressing with saline soaked gauze - CT abdomen: Concerning for cellulitis near wound site - Follows with Dr. Gunderson [facility] for chronic infected Mesh DM 2 - Insulin sliding scale and Lantus BID, restart when able Comorbidities/Medical issues: Neuro- anxiety/depression Pulm- COPD/Chronic respiratory failure vent dependent Heme- anemia MSK- Chronic abd wound, infected mesh (Mesh placement 2004 [place]) Endo- DM2, hypothyroidism Lytes- ESRD on dialysis Lines and Tubes: PIV, trach, tunneled dialysis line, restrepo catheter Nutrition: Okay for diet per trauma Prophylaxis: SCDs, chemical prophylaxis held pending ortho evaluation Disposition: Okay to progressive per trauma Medical Decision Making: High Subjective Pt having pain this morning in her leg Objective Vital signs: Vitals: 11/09/23 0438 11/09/23 0500 11/09/23 0600 11/09/23 0700 BP: Pulse: 112 112 102 111 Resp: 22 20 20 20 Temp: 36.8 C (98.2 F) TempSrc: Oral SpO2: 99% 99% 99% 98% Weight: Height: Temperature Range Last 24 Hours : Temp: 36.8 C (98.2 F) Temp Av.8 C (98.2 F) Min: 36.6 C (97.9 F) Max: 36.8 C (98.3 F) Admit Weight: (Bed scale not functioning, will exchange bed.) Body mass index is 66.35 kg/m . Last Weights: Wt Readings from Last 3 Encounters: 11/08/23 (!) 154.1 kg (339 lb 11.7 oz) 11/07/23 (!) 158.6 kg (349 lb 9.6 oz) 07/17/23 (!) 166.5 kg (367 lb) I/O's: Intake/Output Summary (Last 24 hours) at 11/09/2023 0852 Last data filed at 11/09/2023 0700 Gross per 24 hour Intake 950 ml Output 400 ml Net 550 ml Physical Exam HEENT: Atraumatic EOMI PERRL 3mm Neck: Trachea Midline -Trach Non Tender to palpation No pain with Flex / Ext / Lat Flex / Rotation, Axial Load & distraction Lungs:Good air movement B, CTA B, No Ronchi, No Wheeze, absent breathe sounds on the left No Chest wall tenderness, No Crepitus Unlabored, Ventilator Heart: Heart tones present, No Murmur noted, No CP, No palpitations Abd: Distended, rotund, abdominal wound No seatbelt sign / Brusing Non Tender RUQ / LUQ / RLQ / LLQ Extremities: Moves all extrmeities -Right leg pain a tthe knee--immobilizer in place Pulses 1+ x 4 No calf/thigh tenderness Neuro: Alert, pleasant, +commands, mouths words appropriately Labs Results from last 7 days Lab Units 11/09/23 0240 11/08/23 1730 11/08/23 0310 11/07/23 1824 11/07/23 1510 WBC X10E9/L 6.6 10.2 7.1 6.3 7.4 HEMOGLOBIN g/dL 8.7* 9.7* 10.6* 10.9* 11.5* HEMATOCRIT % 27.4* 30.7* 32.7* 33.2* 34.4* PLATELETS X10E9/L 92* 101* 94* 91* 90* Results from last 7 days Lab Units 11/09/23 0542 11/09/23 0240 11/08/23 2256 11/08/23 1742 11/08/23 1730 11/08/23 0525 11/08/23 0310 11/07/23 2324 11/07/23 1824 11/07/23 1510 SODIUM mmol/L -- 132* -- -- 130* -- 132* -- 129* 128* POTASSIUM mmol/L -- 4.9 -- -- 4.9 -- 4.5 -- 5.2* 5.7* CO2 mmol/L -- 20* -- -- 20* -- 22 -- 22 22 BUN mg/dL -- 53* -- -- 46* -- 44* -- 69* 74* CREATININE mg/dL -- 5.02* -- -- 4.66* -- 4.31* -- 5.26* 5.85* BEDSIDE GLUCOSE mg/dL 158* -- 159* 205* -- < > -- < > -- -- GLUCOSE mg/dL -- 154* -- -- 188* -- 189* -- 219* 218* < > = values in this interval not displayed. Results from last 7 days Lab Units 11/07/23 1510 11/07/23 1115 INR 1.0 1.0 PROTIME sec 11.7 12.2 APTT sec 33 34 Recent Studies X-ray knee left 1 or 2 views Result Date: 11/09/2023 XR KNEE LT 1 OR 2 VWS Clinical history:post op ORIF L distal femur Comparison: 11/07/2023 Impression: Evaluation is markedly compromised by positioning. There is postoperative changes of distal femur. There is overlying material obscuring the osseous structures. Degenerative changes. Osteopenia. Vascular calcifications. Finalized by Mirtha Renteria MD on 11/09/2023 3:27 AM X-ray femur left 2+ views Result Date: 11/09/2023 XR FEMUR LT 2+ VIEWS Clinical history:post op ORIF L distal femur fx Comparison: 11/07/2023 Impression: Postoperative changes and fixation of the distal femoral fracture plate screw.Near-anatomic alignment. No immediate hardware complication. Postoperative soft tissue changes. Finalized by Mirtha Renteria MD on 11/09/2023 3:26 AM X-ray chest 1 view Result Date: 11/09/2023 Single view chest History:intubated Difficulty breathing, shortness of breath Comparison: 11/07/2023 Findings: Single portable view of the chest. Stable tracheostomy. Stable enteric catheter. Stable cardiomediastinal silhouette. Mild vascular congestion and edema. Left pleural effusion and left lower lung atelectasis or pneumonia, stable. Impression: Stable tubes and lines. Stable appearance of the chest. Finalized by Mirtha Renteria MD on 11/09/2023 3:23 AM X-ray femur left 2+ views Result Date: 11/08/2023 XR FEMUR LT 2+ VIEWS INDICATION: Fracture, pain FINDINGS: Intraoperative fluoroscopy for ORIF of the left femur. No radiologist present during the examination. Reference Air Kerma = 6 mGy Fluoroscopy time: 54 seconds Saved images: 1 IMPRESSION: Intraoperative fluoroscopy provided as above. See operative report for additional details. Finalized by Bull Herr on 11/08/2023 4:57 PM Allergies Allergies Allergen Reactions Iodinated Contrast Media Shortness Of Breath Morphine Shortness Of Breath Fentanyl Patient gets burning and abdominal cramps Gadolinium-Containing Contrast Media Zosyn [Piperacillin-Tazobactam] Current Medications SCHEDULED acetaminophen, 1,000 mg, oral, Q8H atorvastatin, 20 mg, oral, Daily chlorhexidine, 15 mL, mouth/throat, BID cholecalciferol (vitamin D3), 2,000 Units, oral, Daily FLUoxetine, 30 mg, oral, Daily gabapentin, 100 mg, oral, TID heparin (porcine), 5,000 Units, subcutaneous, Q8H YOLA insulin lispro, 2-10 Units, subcutaneous, Q6H lacosamide, 50 mg, oral, BID levETIRAcetam, 500 mg, oral, TID levothyroxine, 175 mcg, oral, Daily magnesium oxide, 400 mg, oral, Daily methocarbamoL, 500 mg, oral, TID midodrine, 5 mg, g-tube, TID risperiDONE, 1 mg, oral, Daily sevelamer, 3,200 mg, oral, TID with meals sodium chloride, 10 mL, intravenous, Q96H sodium chloride, 10 mL, intravenous, Q96H sodium citrate, 2 mL, intravenous, Q96H sodium citrate, 2 mL, intravenous, Q96H sodium zirconium cyclosilicate, 10 g, oral, Daily with lunch PRN albumin human albuterol HYDROmorphone midodrine oxyCODONE sodium chloride sodium chloride sodium chloride sodium chloride sodium citrate sodium citrate Current Infusions sodium chloride 0.9 %, 3 mL/hr, Last Rate: 3 mL/hr (11/08/232057) sodium chloride 0.9 %, 250 mL ROBERT Gross 11/09/23 0903 Images from the original note were not included. SICU Academic Critical Care Progress Name: Matthew Neal Date: 11/09/2023 Length of Stay: 2 day(s) Chief Complaint: Fall, left leg injury History of Present Illness: Matthew Neal is a 58 y.o. female with PMH of NSTEMI, diabetes, congestive heart failure, end-stage renal disease s/p tunneled cath, and respiratory failure s/p tracheostomy who presents from OSH with left leg injury. Patient reportedly fell out of bed at LTAC she resides at and rolled her left leg. She immediately began experiencing pain and swelling over left leg. Denies head injury or LOC. Not currently anticoagulated. Overnight Events: Patient seen and examined at bedside by myself. Tachycardic overnight with HR range 102-122. One instance of hypotension with SBP of 83, range of 83-132. Otherwise HDS and afebrile. She nods her head yes to confirm she is having pain over her left leg; there is improvement with pain medicine. Underwent fixation of left distal femur yesterday without complications. 100mL NG output, 100mL urine output. Past Medical History: Diagnosis Date Anemia CHF (congestive heart failure) ([facility]) Diabetes ([facility]) Morbid obesity ([facility]) NSTEMI (non-ST elevated myocardial infarction) ([facility]) Respiratory failure ([facility]) Past Surgical History: Procedure Laterality Date OPEN REDUCTION INTERNAL FIXATION FEMUR Left 11/08/2023 Performed by Jagdish Vasquez MD at [facility] Medications Prior to Admission Medication Sig Dispense Refill Last Dose acetaminophen (TYLENOL) 325 mg tablet Take 2 tablets (650 mg total) by mouth every 6 (six) hours as needed for fever. Other - as prescribed albuterol (PROVENTIL,VENTOLIN) 2.5 mg /3 mL (0.083 %) nebulizer solution Inhale 3 mL (2.5 mg total) by nebulization every 4 (four) hours as needed for shortness of breath. Other - as prescribed ALPRAZolam (XANAX) 0.5 mg tablet Take 1 tablet (0.5 mg total) by mouth in the morning and 1 tablet (0.5 mg total) before bedtime. ALPRAZolam (XANAX) 1 mg tablet Take 1 tablet (1 mg total) by mouth in the morning and 1 tablet (1 mg total) before bedtime. Indications: anxious. aspirin 81 mg Take 1 tablet (81 mg total) by mouth in the morning. atorvastatin (LIPITOR) 20 mg tablet Take 1 tablet (20 mg total) by mouth in the morning. bumetanide (BUMEX) 1 mg tablet Take 2 tablets (2 mg total) by mouth daily. busPIRone (BUSPAR) 10 mg tablet Take 1 tablet (10 mg total) by mouth in the morning and 1 tablet (10 mg total) before bedtime. busPIRone (BUSPAR) 7.5 mg tablet Take 1 tablet (7.5 mg total) by mouth in the morning. cholecalciferol (VITAMIN D3) 1,000 units tablet Take 2 tablets (2,000 Units total) by mouth in the morning. Indications: low vitamin D levels. cyclobenzaprine (FLEXERIL) 5 mg tablet Take 2 tablets (10 mg total) by mouth every 6 (six) hours. Other - as prescribed dicyclomine (BENTYL) 10 mg capsule Take 1 capsule (10 mg total) by mouth 3 (three) times a day. epoetin beta, methoxy peg (MIRCERA) 75 mcg/0.3 mL syringe Inject 75 mcg as directed every 14 (fourteen) days. FLUoxetine (PROzac) 20 mg capsule Take 30 mg by mouth in the morning. folic acid-B dsok-X-fxlqb-zinc (DIALYVITE) 3-70-15 mg-mcg-mg tablet Take 1 tablet by mouth in the evening. gabapentin (NEURONTIN) 100 mg capsule Take 1 capsule (100 mg total) by mouth 3 (three) times a day. insulin glargine (LANTUS, BASAGLAR) 100 unit/mL (3 mL) insulin pen Inject 20 Units under the skin in the morning and 20 Units in the evening. Inject before meals. (Patient taking differently: Inject 32 Units under the skin in the morning and 32 Units in the evening. Inject before meals.) 15 mL 12 insulin lispro (HumaLOG) 100 unit/mL insulin pen [...] mg/dL, give 10 units. 15 mL 12 insulin lispro (HumaLOG) 100 unit/mL insulin pen Inject 2-8 Units under the skin nightly. Bedtime hyperglycemia dosing. For glucose 201-250 mg/dL, give 2 units. For glucose 251-300 mg/dL, give 4 units. For glucose 301-350 mg/dL, give 6 units. For glucose 351-400 mg/dL, give 8 units. 15 mL 12 lacosamide (VIMPAT) 100 mg tablet Take 0.5 tablets (50 mg total) by mouth in the morning and 0.5 tablets (50 mg total) before bedtime. levETIRAcetam (KEPPRA) 1000 mg tablet Take 0.5 tablets (500 mg total) by mouth 3 (three) times a day. levothyroxine (SYNTHROID, LEVOTHROID) 175 MCG tablet Take 1 tablet (175 mcg total) by mouth in the morning. midodrine (PROAMATINE) 10 mg tablet Take 1 tablet (10 mg total) by mouth as needed (Hemodialysis - PRN at initiation and midway through dialysis session). 90 tablet 3 Other - as prescribed naloxone (NARCAN) 4 mg/actuation spray,non-aerosol nasal spray Administer 1 spray (4 mg total) into alternating nostrils as needed for opioid reversal. 3 each 3 Other - as prescribed ondansetron (ZOFRAN) 4 mg tablet Take 1 tablet (4 mg total) by mouth every 6 (six) hours as needed for nausea or vomiting. Other - as prescribed oxycodone HCl (OXYCODONE ORAL) Take 5 mg by mouth every 6 (six) hours as needed. Other - as prescribed pantoprazole (PROTONIX) 40 mg EC tablet Take 1 tablet (40 mg total) by mouth in the morning. polyethylene glycol (GLYCOLAX) 17 gram/dose powder Take 17 g by mouth in the morning. potassium chloride (KLOR-CON M 20) 20 MEQ CR tablet Take 1 tablet (20 mEq total) by mouth in the morning. risperiDONE (RisperDAL) 1 mg tablet Take 1 tablet (1 mg total) by mouth in the morning. sennosides-docusate sodium (SENOKOT-S) 8.6-50 mg Take 1 tablet by mouth every 12 (twelve) hours as needed for constipation. (Patient taking differently: Take 1 tablet by mouth once daily at bedtime.) 60 tablet 3 sevelamer (RENVELA) 800 mg tablet Take 4 tablets (3,200 mg total) by mouth in the morning and 4 tablets (3,200 mg total) at noon and 4 tablets (3,200 mg total) in the evening. Take with meals. albuterol (ACCUNEB) 0.63 mg/3 mL nebulizer solution Inhale 3 mL (0.63 mg total) by nebulization every 6 (six) hours as needed for wheezing. predniSONE (DELTASONE) 20 mg tablet Take 1 tablet (20 mg total) by mouth in the morning. (Patient not taking: Reported on 11/07/2023) Unknown acetaminophen, 1,000 mg, oral, Q8H atorvastatin, 20 mg, oral, Daily chlorhexidine, 15 mL, mouth/throat, BID cholecalciferol (vitamin D3), 2,000 Units, oral, Daily cyclobenzaprine, 5 mg, oral, TID FLUoxetine, 30 mg, oral, Daily heparin (porcine), 5,000 Units, subcutaneous, Q8H YOLA insulin lispro, 2-10 Units, subcutaneous, Q6H lacosamide, 50 mg, oral, BID levETIRAcetam, 500 mg, oral, TID levothyroxine, 175 mcg, oral, Daily magnesium oxide, 400 mg, oral, Daily midodrine, 5 mg, g-tube, TID risperiDONE, 1 mg, oral, Daily sevelamer, 3,200 mg, oral, TID with meals sodium chloride, 10 mL, intravenous, Q96H sodium chloride, 10 mL, intravenous, Q96H sodium citrate, 2 mL, intravenous, Q96H sodium citrate, 2 mL, intravenous, Q96H sodium zirconium cyclosilicate, 10 g, oral, Daily with lunch sodium chloride 0.9 %, 3 mL/hr, Last Rate: 3 mL/hr (11/08/232057) Allergies Allergen Reactions Iodinated Contrast Media Shortness Of Breath Morphine Shortness Of Breath Fentanyl Patient gets burning and abdominal cramps Gadolinium-Containing Contrast Media Zosyn [Piperacillin-Tazobactam] History reviewed. No pertinent family history. Social History Socioeconomic History Marital status: Tobacco Use Smoking status: Never Smokeless tobacco: Never Vaping Use Vaping status: Never Used Substance and Sexual Activity Alcohol use: Not Currently Drug use: Never Sexual activity: Defer Other Topics Concern Caffeine Use Yes Social Determinants of Health Food Insecurity: No Food Insecurity (11/07/2023) Hunger Screening Food Insecurity - Worry: Never True Food Insecurity - Inability: Never True Transportation Needs: No Transportation Needs (11/07/2023) PRAPARE - Transportation Lack of Transportation (Medical): No Lack of Transportation (Non-Medical): No Physical Activity: Inactive (09/14/2023) Received from [facility] Exercise Vital Sign Days of Exercise per Week: 0 days Minutes of Exercise per Session: 0 min Stress: No Stress Concern Present (09/14/2023) Received from [facility] [employer] [place] [employer] - Occupational Stress Questionnaire Feeling of Stress : Not at all Interpersonal Safety: Not At Risk (11/07/2023) Humiliation, Afraid, Rape, and Kick questionnaire Fear of Current or Ex-Partner: No Emotionally Abused: No Physically Abused: No Sexually Abused: No Housing Instability: Low Risk (11/07/2023) Housing Instability Housing Instability: No Temp: [36.6 C (97.9 F)-36.8 C (98.3 F)] 36.8 C (98.3 F) Pulse: [102-122] 102 Resp: [0-29] 20 BP: (83-132)/(49-82) 104/68 Arterial Line BP: (80-132)/(-15-74) 127/61 FiO2 (%): [40 %] 40 % SpO2: [93 %-100 %] 99 % O2 Device: Trach In-situ O2 Device: Trach In-situ Physical Exam General: Awake, alert and oriented x3, in no acute distress HENT: Head atraumatic, normocephalic, external ears and nose are normal Eyes: Conjunctivae clear, non-icteric, EOMI Pulmonary: Regular, non-labored respirations, tracheostomy Cardiovascular: Regular rate and rhythm, radial pulses 2+, moderately edematous b/l lower extremities Abdomen: Soft, non-tender, non-distended, obese abdomen Musculoskeletal: Limited ROM L lower extremity s/p surgical repair, R lower extremity normal ROM without obvious deformity Neurological: No gross neurologic deficit, sensation grossly intact Skin: Warm, dry, without jaundice Ventilator Settings Vent Mode: PRVC-AC FiO2 (%): 40 % Resp Rate (Set): 22 Vt (Set, mL): 400 mL Avea Vt (Set, L): 0.4 Liter PEEP/CPAP (cm H2O): 8 cm H20 Insp Time (sec): 0.92 sec Pressure Support Above PEEP Set (cm H2O): 15 cm H20 Trigger Sensitivity Flow (L/min): 1 L/min Trigger Sensitivity Pressure (cm H2O): 3 cm H2O Humidification: Heater Heater Temperature: 36.8 C (98.2 F) Results from last 3 days Lab Units 11/09/23 0240 11/08/23 1730 11/08/23 0310 11/07/23 1824 11/07/23 1510 11/07/23 1115 BUN mg/dL 53* 46* 44* 69* 74* 78* CREATININE mg/dL 5.02* 4.66* 4.31* 5.26* 5.85* 5.72* POTASSIUM mmol/L 4.9 4.9 4.5 5.2* 5.7* 5.7* CO2 mmol/L 20* 20* 22 22 22 22 CHLORIDE mmol/L 98 97* 97* 92* 91* 89* MAGNESIUM mg/dL 2.2 2.3 1.7* 1.7* -- 1.8 AST U/L -- -- -- 11 11 -- ALT U/L -- -- -- 15 18 -- ALK PHOS U/L -- -- -- 182* 210* -- Results from last 3 days Lab Units 11/07/23 1510 11/07/23 1115 INR 1.0 1.0 PROTIME sec 11.7 12.2 Results from last 3 days Lab Units 11/09/23 0240 11/08/23 1730 11/08/23 0310 11/07/23 1824 11/07/23 1510 11/07/23 1115 WBC X10E9/L 6.6 10.2 7.1 6.3 7.4 7.7 HEMOGLOBIN g/dL 8.7* 9.7* 10.6* 10.9* 11.5* 11.4* HEMATOCRIT % 27.4* 30.7* 32.7* 33.2* 34.4* 35.4 PLATELETS X10E9/L 92* 101* 94* 91* 90* 105* MCV fL 99 99 98 97 97 98 MCH pg 31.2 31.5 31.8 32.0 32.6 31.7 MCHC g/dL 31.7* 31.6* 32.4 32.9 33.5 32.2 RDW % 15.6* 15.6* 15.7* 15.5* 15.9* 15.9* EOS ABS AUTO X10E9/L -- 0.2 0.1 0.1 0.1 0.2 Microbiology Results Procedure Component Value Units Date/Time Urine culture [[id number]] (Abnormal) Collected: 11/07/23 1227 Specimen: Urine from Restrepo Catheter Specimen Updated: 11/08/23 1301 Culture >100,000 ORGANISMS/mL ESCHERICHIA COLI Glucose Results from last 7 days Lab Units 11/09/23 0542 11/09/23 0240 11/08/23 2256 11/08/23 1742 11/08/23 1730 11/08/23 1123 11/08/23 0525 11/08/23 0310 11/07/23 2324 11/07/23 1824 11/07/23 1510 11/07/23 1332 BEDSIDE GLUCOSE mg/dL 158* -- 159* 205* -- 149* 187* -- 182* -- -- 263* GLUCOSE mg/dL -- 154* -- -- 188* -- -- 189* -- 219* 218* -- I/O last 3 completed shifts: In: 1310 [I.V.:660; NG/GT:150; IV Piggyback:500] Out: 2220 [Urine:100; Emesis/NG output:100; Other:1820; Blood:200] acetaminophen, 1,000 mg, oral, Q8H atorvastatin, 20 mg, oral, Daily chlorhexidine, 15 mL, mouth/throat, BID cholecalciferol (vitamin D3), 2,000 Units, oral, Daily cyclobenzaprine, 5 mg, oral, TID FLUoxetine, 30 mg, oral, Daily heparin (porcine), 5,000 Units, subcutaneous, Q8H YOLA insulin lispro, 2-10 Units, subcutaneous, Q6H lacosamide, 50 mg, oral, BID levETIRAcetam, 500 mg, oral, TID levothyroxine, 175 mcg, oral, Daily magnesium oxide, 400 mg, oral, Daily midodrine, 5 mg, g-tube, TID risperiDONE, 1 mg, oral, Daily sevelamer, 3,200 mg, oral, TID with meals sodium chloride, 10 mL, intravenous, Q96H sodium chloride, 10 mL, intravenous, Q96H sodium citrate, 2 mL, intravenous, Q96H sodium citrate, 2 mL, intravenous, Q96H sodium zirconium cyclosilicate, 10 g, oral, Daily with lunch sodium chloride 0.9 %, 3 mL/hr, Last Rate: 3 mL/hr (11/08/232057) Microbiology Results Procedure Component Value Units Date/Time Urine culture [[id number]] (Abnormal) Collected: 11/07/23 1227 Specimen: Urine from Restrepo Catheter Specimen Updated: 11/08/23 1301 Culture >100,000 ORGANISMS/mL ESCHERICHIA COLI Lines/Drains PICC Single Lumen 08/03/20 (Active) Hemodialysis Catheter Double Cuffed Right Internal Jugular (Active) Hemodialysis Catheter Triple 10/03/22 Cuffed Right Subclavian (Active) Peripheral IV 11/07/23 Left Antecubital (Active) Line Status Blood return noted;Flushed;Saline locked 11/07/23 1229 Site Assessment Clean;Dry;Intact 11/07/23 1229 Dressing Type Transparent 11/07/23 1229 Dressing Status Clean;Dry;Intact 11/07/23 1229 Urinary Catheter 11/07/23 Single lumen (Active) Catheter Status Patent 11/07/23 1238 Site Assessment Clean;Skin intact 11/07/23 1238 Collection Container Standard drainage bag/container 11/07/23 1238 Securement Method Securing device (Describe) 11/07/23 1238 Reason for Continuing Physician order 11/07/23 1238 Urine Color Yellow/straw 11/07/23 1238 Urine Appearance Cloudy;Sediment;Mucous 11/07/23 1238 Surgical Airway 12/11/20 Shiley Cuffed 6 (Active) Surgical Airway Cuffed 6 (Active) Surgical Airway Shiley Cuffed 6 (Active) Surgical Airway 11/07/23 Shiley Cuffed 6 (Active) Status Secured 11/07/23 1458 Site Assessment Clean;Dry 11/07/23 1458 Ties Assessment Intact;Dry;Clean 11/07/23 1112 Emergency Equipment at Bedside Bag and mask;Suction 11/07/23 1458 ACTIVE PROBLEM LIST: Left distal femur fracture s/p fall ESRD Ventilator dependence Chronic abdominal wound with possible cellulitis Type 1 DM CAD ASSESSMENT/PLAN: Matthew Neal is a 58 y.o. female Presenting from LTAC with left femur fracture s/p fall rom bed. Chronic trach and daily dialysis dependant. 1. Neuro Hospital Meds: Sedation: none Analgesia: Tylenol, Oxycodone Other: Midodrine, Vimpat, Keppra, Flexeril, Prozac, Risperdal PMH: Anxiety, depression Home Meds: Tylenol, alprazolam, buspirone,prozac, gabapentin, vimpat, midodrine, keppra, narcan, oxycodone, risperidone, flexeril PSH: 2. Cardiovascular Hemodynamics: Tachycardic rate, regular rhythm Normotensive Pressors: none Goal MAP >65 Continuous cardiac monitoring Hospital Meds: PMH: NSTEMI, CAD, CHF Home Meds: Aspirin, atorvastatin PSH: Code Status: Full 3. Pulmonary Breathing Support: Ventilator Settings: PRVC, FiO2 40%, PEEP 8, RR 18 SpO2: 96% Continuous pulse oximetry Hospital Meds: Albuterol PMH: COPD, Respiratory failure s/p tracheotomy Home Meds: Albuterol PSH: Surgical airway creation 4. GI Chronic abdominal wound with possible cellulitis Packed wet to dry dressing with saline soaked gauze CTAP concerning for cellulitis Follows with Dr. 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 Renal/Genitourinary End stage renal disease Daily dialysis patient; patient has tunneled catheter Nephrology consulted and following Received x1 albumin yesterday and started on oral midodrine Daily [facility] D[facility] today Metabolic acidosis Today's ABG: ph: 7.302 PCO2: 44.2 HCO3: 21.9 Respiratory rate increased yesterday 18>22 Electrolytes: Results from last 3 days Lab Units 11/09/23 0240 11/08/23 1730 11/08/23 0310 SODIUM mmol/L 132* 130* 132* CHLORIDE mmol/L 98 97* 97* POTASSIUM mmol/L 4.9 4.9 4.5 CO2 mmol/L 20* 20* 22 BUN mg/dL 53* 46* 44* CREATININE mg/dL 5.02* 4.66* 4.31* MAGNESIUM mg/dL 2.2 2.3 1.7* PHOSPHORUS mg/dL 5.3* 5.1* 4.7 Will replace electrolytes PRN per ICU protocol Fluid Balance: IV Fluids: none UOP/24 H: 100mL Net Fluid/24H: Intake/Output Summary (Last 24 hours) at 11/09/2023 07 Last data filed at 11/09/2023 0600 Gross per 24 hour Intake 920 ml Output 400 ml Net 520 ml Net Fluid Since Admission: Net IO Since Admission: -910 mL [11/09/23 0702] Strict monitoring of intake and output Hospital Meds: PMH: ESRD, daily dialysis Home Meds: Bumex PSH: 6. Heme Labs: Results from last 3 days Lab Units 11/09/23 0240 11/08/23 1730 11/08/23 0310 11/07/23 1824 11/07/23 1510 11/07/23 1115 HEMOGLOBIN g/dL 8.7* 9.7* 10.6* < > 11.5* 11.4* PLATELETS X10E9/L 92* 101* 94* < > 90* 105* INR -- -- -- -- 1.0 1.0 < > = values in this interval not displayed. Type and Screen: O RH+ Blood Products Administered: none Will continue to monitor hgb and transfuse PRN 7. ID Tmax/24H: Temp (24hrs), Av.7 C (98.1 F), Min:36.6 C (97.9 F), Max:36.8 C (98.3 F) Labs: Results from last 3 days Lab Units 11/09/23 0240 11/08/23 1730 11/08/23 0310 WBC X10E9/L 6.6 10.2 7.1 Hospital Meds: Antibiotics: none Continue to monitor for signs of infection 8. Endocrine Results from last 3 days Lab Units 11/09/23 0542 11/09/23 0240 11/08/23 2256 BEDSIDE GLUCOSE mg/dL 158* -- 159* GLUCOSE mg/dL -- 154* -- Goal Blood Glucose <180 mg/dL Hospital Meds: SSI, Lantus BID PMH: Type 1 diabetes mellitus Home Meds: Lantus, HumaLOG, levothyroxine, prednisone PSH: 9. Musculoskeletal Left distal femur fracture, displaced, closed CT scan of LLE 11/06: Comminuted distal femoral fracture with extension into the intercondylar portion of the knee S/p ORIF left distal femur 11/07 Appreciate orthopedic recs PMH: PSH: Home meds: PT/OT when able 10. Prophylaxis Respiratory: none GI: Pepcid DVT: SCD Cuffs, resume heparin 11. Lines, Drains, and Airway Hemodialysis catheter double lumen cuffed R IJ PICC line Hemodialysis cath triple lumen cuffed R subclavian 3x PIV Art line R Radial NG Restrepo Tracheostomy Dispo: Critical, remain in SICU Marie Quick MD [employer] Pipe Fitter, PGY-1 Associated attestation - Leah Eric MD - 11/09/2023 8:40 AM EDT Name: Matthew Neal Date: 11/09/2023 Length of Stay: 2 day(s) ACTIVE PROBLEM LIST: Fall Left distal femur fracture s/p ORIF POD1 Chronic hypoxic, hypercapnic respiratory failure Ventilator dependence ESRD on HD Hyponatremia Hypomagnesemia Chronic abdominal wound with possible cellulitis Hyperglycemia H/O CAD ASSESSMENT/PLAN: 1. Neuro: Neurochecks Multimodal pain control Resume home meds 2. Cardio: Continues hemodynamic monitoring Maintain map above 65 Goal systolic < 160 mmHg Midodrine 3. Resp: Maintain O2 sat > 92% Monitor for signs and respiratory distress Change CPAP to BIPAP Resume COPD inhalers Repeat ABG in 3 hours Trach care Ventilator Settings Vent Mode: (S) CPAP FiO2 (%): 40 % Resp Rate (Set): 18 Vt (Set, mL): 400 mL Avea Vt (Set, L): 0.4 Liter PEEP/CPAP (cm H2O): 8 cm H20 Insp Time (sec): 1 sec Pressure Support Above PEEP Set (cm H2O): 15 cm H20 Trigger Sensitivity Flow (L/min): 1 L/min Trigger Sensitivity Pressure (cm H2O): 3 cm H2O Humidification: Heater Heater Temperature: 37.2 C (99 F) 4. GI: ITALIAN TUTOR for swallow eval If fails, start TF 5. Heme: Monitor H&H Transfuse for hb less than 7 or symptomatic anemia 6. Renal: Monitor urine output Monitor renal function ICU electrolyte replacement protocol HD today F/U nephrology recs 7. ID: Monitor for signs and symptoms of sepsis Urine culture: e coli. No symptoms of UTI, of signs of sepsis, likely chronic colonization. We will continue to monitor. If she develops leukocytosis/fever or symptoms of UTI, we will treat. 8. Endo: Monitor blood sugar Use insulin sliding scale as needed 9. MS: Pressure ulcer prophylaxis F/U Wound care recs 10: Prophylaxis: DVT mechanical prophylaxis DVT chemical prophylaxis with SQ heparin DC restrepo Dispo: Guarded This patient remains critically ill and requires constant monitoring and titration of care by a Critical Care Consultant Electronics. Failure to do so may result in further organ system failure, imminent deterioration, or . Critical care time spent directly with the patient and family: 31 min Critical care was time spent personally by me on the following activities: Development of treatment plan with the patient or surrogate, discussions with consultants, discussions with the primary provider, ordering and performing treatments and interventions, ordering and review of laboratory studies, ordering and review of radiographic studies, pulse oximetry, re-evaluation of patient's condition, review of old charts, vascular access procedures, evaluation of patient's response to treatment, examination of patient, interpretation of cardiac output measurements and obtaining history from patient or surrogate Electronically signed by Leah Eric MD [facility] Trauma, Acute Care Surgery and Surgical Critical Care Orthopedic Progress Note Subjective Patient in bed trach and PEG in place. The patient has restraints on her hands. She appears alert and comfortable. No chest pain shortness of breath. No constitutional signs or symptoms. Objective BP 99/65 Pulse 114 Temp 36.8 C (98.2 F) Resp 24 Ht 152.4 cm (5') Wt (!) 154.1 kg (339 lb 11.7 oz) SpO2 95% BMI 66.35 kg/m O2 Device: Trach In-situ Lab Results Component Value Date WBC 7.1 11/08/2023 HGB 10.6 (L) 11/08/2023 HCT 32.7 (L) 11/08/2023 MCV 98 11/08/2023 PLT 94 (L) 11/08/2023 Lab Results Component Value Date GLU 187 (H) 11/08/2023 CALCIUM 8.9 11/08/2023 K 4.5 11/08/2023 CO2 22 11/08/2023 BUN 44 (H) 11/08/2023 CREATININE 4.31 (H) 11/08/2023 Lab Results Component Value Date INR 1.0 11/07/2023 INR 1.0 11/07/2023 INR 1.1 07/17/2023 PROTIME 11.7 11/07/2023 PROTIME 12.2 11/07/2023 PROTIME 12.4 07/17/2023 Awake and alert but unable to verbalize her responses other than nodding head yes or no. left LE: Knee immobilizer in place. Knee immobilizers open her skin is clean, dry and intact. + motor fxn EHL, FHL, DF, PF. Comparments left thigh & calves soft and compressible; Palpable pulses with BCR x 5 Assessment/Plan : Matthew Neal is a 58 yrs female with left distal femur fracture PLAN The patient will go to the operating room today with to undergo operative stabilization of her left distal femur fracture. The patient is NPO except for medications at this time. Her hemoglobin is 10.6. She does have blood available for the operating room. Surgical consent is obtained from her POA and scanned into the chart. RJ GUPTA PA 11/08/23 7204 ATTENDING STATEMENT: IJagdish MD, personally performed the face to face diagnostic evaluation on this patient. My findings are as follows: Patient seen evaluated this morning. Physical exam findings confirmed with that as documented by my PA. Thigh compartments are soft and compressible. Knee immobilizer in place. . She has intact but weak EHL FHL and tib ant function. She does have some plantar flexion contractures at baseline. Foot is warm and well perfused with a palpable DP pulse. No areas of open wounds abrasions or skin breakdown visible. Radiographs personally viewed demonstrating a displaced supracondylar femur fracture with intra-articular extension. Minimal displacement of the articular surface however. She does have advanced arthritic changes as well. Discussed with her the anticipated surgical procedure. Plan to use plates and screws for jewish of limb alignment and stability. Discussed the risks benefits and alternatives. Reviewed consent with her signed and updated. Left lower extremity also marked identified as the operative site with my initials. Anticipate returned to the ICU postop. Would anticipate continued period of nonweightbearing for up to 12 weeks postop notably she is a non ambulator however. Will be permitted to work on knee range of motion in an effort to prevent any contractures and sores. No plan for brace or splint immobilization. Plan for calcium and vitamin-D supplementation for optimization of his bone health. Will plan for outpatient osteoporosis evaluation and management. Will need DVT prophylaxis postoperatively for 6-12 weeks postop given her impaired mobility. JAGDISH VASQUEZ MD TRAUMA SURGERY - PROGRESS NOTE Patient: Matthew Neal Date of : 1965 AGE 58 y.o. SEX female Assessment / Plan This is a 58 y.o. female with Injuries/Traumatic issues: Fall from bed -PT/OT when able Acute post traumatic pain - currently on tylenol, oxycodone Left Distal femur Fracture - Ortho surgery consulted: appreciate recommendations - CT Left Knee: Comminuted distal femoral fracture with extension into the intercondylar portion of the knee. - Left leg splint in place, NWB awaiting further ortho recs -Plan for OR 11/07 Chronic respiratory failure - Tracheostomy in place, ventilator dependent secondary to chronic respiratory failure, COPD - currently on a rate control, no increasing oxygen demand, diminished left breath sounds he was chronic in nature after reviewing previous CTs -Placed in the ISCU overnight ESRD - R. Sided tunneled dialysis catheter in place - Consult nephrology: For dialysis, hyperkalemic K+ 5.7 - On HD M-F per chart review Chronic abdominal wound - Packed with wet to dry dressing with saline soaked gauze - CT abdomen: Concerning for cellulitis near wound site - Follows with Dr. Gunderson [facility] for chronic infected Mesh DM 2 - Insulin sliding scale and Lantus BID, restart when able Comorbidities/Medical issues: Neuro- anxiety/depression Pulm- COPD/Chronic respiratory failure vent dependent Heme- anemia MSK- Chronic abd wound, infected mesh (Mesh placement [address] [place]) Endo- DM2, hypothyroidism Lytes- ESRD on dialysis Lines and Tubes: PIV, trach, tunneled dialysis line, restrepo catheter Nutrition: NPO for OR Prophylaxis: SCDs, chemical prophylaxis held pending ortho evaluation Disposition: SICU Medical Decision Making: High Subjective The patient resting in bed this morning no acute issues overnight Objective Vital signs: Vitals: 11/08/23 0700 11/08/23 0715 11/08/23 0730 11/08/23 0745 BP: Pulse: 119 113 118 116 Resp: 18 16 16 18 Temp: TempSrc: SpO2: 96% 97% 97% 94% Weight: Height: Temperature Range Last 24 Hours : Temp: 36.8 C (98.2 F) Temp Av.7 C (98 F) Min: 36.3 C (97.4 F) Max: 36.9 C (98.4 F) Admit Weight: (Bed scale not functioning, will exchange bed.) Body mass index is 66.35 kg/m . Last Weights: Wt Readings from Last 3 Encounters: 11/08/23 (!) 154.1 kg (339 lb 11.7 oz) 11/07/23 (!) 158.6 kg (349 lb 9.6 oz) 07/17/23 (!) 166.5 kg (367 lb) I/O's: Intake/Output Summary (Last 24 hours) at 11/08/2023 0917 Last data filed at 11/08/2023 0700 Gross per 24 hour Intake 390 ml Output 1820 ml Net -1430 ml Physical Exam HEENT: Atraumatic EOMI PERRL 3mm Neck: Trachea Midline -Trach Non Tender to palpation No pain with Flex / Ext / Lat Flex / Rotation, Axial Load & distraction Lungs:Good air movement B, CTA B, No Ronchi, No Wheeze, absent breathe sounds on the left No Chest wall tenderness, No Crepitus Unlabored, Ventilator Heart: Heart tones present, No Murmur noted, No CP, No palpitations Abd: Distended, rotund, abdominal wound No seatbelt sign / Brusing Non Tender RUQ / LUQ / RLQ / LLQ Extremities: Moves all extrmeities -Right leg pain a tthe knee--immobilizer in place Pulses 1+ x 4 No calf/thigh tenderness Neuro: Alert, pleasant, +commands, mouths words appropriately Labs Results from last 7 days Lab Units 11/08/23 0310 11/07/23 1824 11/07/23 1510 11/07/23 1115 WBC X10E9/L 7.1 6.3 7.4 7.7 HEMOGLOBIN g/dL 10.6* 10.9* 11.5* 11.4* HEMATOCRIT % 32.7* 33.2* 34.4* 35.4 PLATELETS X10E9/L 94* 91* 90* 105* Results from last 7 days Lab Units 11/08/23 0525 11/08/23 0310 11/07/23 2324 11/07/23 1824 11/07/23 1510 11/07/23 1332 11/07/23 1115 SODIUM mmol/L -- 132* -- 129* 128* -- 127* POTASSIUM mmol/L -- 4.5 -- 5.2* 5.7* -- 5.7* CO2 mmol/L -- 22 -- 22 22 -- 22 BUN mg/dL -- 44* -- 69* 74* -- 78* CREATININE mg/dL -- 4.31* -- 5.26* 5.85* -- 5.72* BEDSIDE GLUCOSE mg/dL 187* -- 182* -- -- < > -- GLUCOSE mg/dL -- 189* -- 219* 218* -- 255* < > = values in this interval not displayed. Results from last 7 days Lab Units 11/07/23 1510 11/07/23 1115 INR 1.0 1.0 PROTIME sec 11.7 12.2 APTT sec 33 34 Recent Studies X-ray abdomen NG Tube placement 1 view Result Date: 11/08/2023 XR ABD NG TUBE PLACEMENT 1 VIEW Clinical history:ng verification enteric catheter placement and verification Comparison: 11/07/2023 Findings: Evaluation is compromised by diminished penetration related to body habitus and portable technique. Enteric catheter tip appears to extend to the level of the proximal to mid stomach. Impression: Enteric catheter extends to the level of the proximal to mid stomach. Finalized by Mirtha Renteria MD on 11/08/2023 5:12 AM X-ray chest 1 view Result Date: 11/07/2023 Single view chest History:chronic trach Difficulty breathing, shortness of breath Comparison: 11/07/2023 Findings: Single portable view of the chest. Stable tracheostomy. Enteric other signs of the stomach. Stable right jugular catheter. Mild vascular congestion edema. Stable cardiomediastinal silhouette. Impression: Mild vascular congestion and interstitial edema. Finalized by Mirtha Renteria MD on 11/07/2023 5:54 PM X-ray abdomen ap 1 view Result Date: 11/07/2023 CLINICAL HISTORY: NG tube placement Comparison: None Views: 1 view FINDINGS: * NG tube courses well below the hemidiaphragm and likely within the body of stomach. IMPRESSION: * As above. Finalized by Margarito Bravo MD on 11/07/2023 5:[address] knee left without contrast Result Date: 11/07/2023 Clinical history: Knee trauma. Dislocation. CT left knee without contrast: 11/07/2023 COMPARISON: None PROCEDURE: Axial images were obtained through the knee. Coronal and sagittal reconstructions were performed. All CT scans at this facility use dose modulation, iterative reconstruction, and/or weight based dosing when appropriate to reduce radiation dose to as low as reasonably achievable FINDINGS: There is a comminuted distal femoral fracture which is difficult to characterize due to bone demineralization. This has a transverse component proximal to the condylar level with some impaction. Sagittal plane components appear to extend into the intercondylar region without definite disruption of articular surfaces at the medial and lateral condylar region. Soft tissue swelling is present around the knee with a large suprapatellar effusion/hemarthrosis. There is no patellar injury. The tibial plateau and proximal fibula appear within normal limits with generalized bone demineralization. There is edema within subcutaneous tissues throughout the knee. IMPRESSION: Comminuted distal femoral fracture with extension into the intercondylar portion of the knee. Finalized by Artur Pardo MD on 11/07/2023 4:[address] chest without contrast Result Date: 11/07/2023 Clinical history:Blunt chest trauma. CT chest without contrast:11/07/2023 Comparison: 03/21/2021 Procedure: Axial images were obtained through the chest without intravenous contrast. Coronal and sagittal reconstructions were performed. All CT scans at this facility use dose modulation, iterative reconstruction, and/or weight based dosing when appropriate to reduce radiation dose to as low as reasonably achievable. Findings: Evaluation is inhibited by body habitus. Patchy alveolar opacity and volume loss are present in the left lower lobe, the left upper lobe and the paramediastinal right lower lobe. There is no large pleural effusion or pneumothorax. The heart is enlarged with tracheostomy and central line in place. No acute mediastinal abnormality is present. There is no acute osseous abnormality within the thorax. IMPRESSION: Pulmonary infiltrates may reflect areas of atelectasis or pneumonia. Follow-up to resolution would be required to exclude an underlying abnormality. No definite posttraumatic abnormality within the chest. Finalized by Artur Pardo MD on 11/07/2023 4:[address] abdomen and pelvis without contrast Result Date: 11/07/2023 CLINICAL INFORMATION: Abdominal trauma, blunt. Pain TECHNIQUE: CT Abdomen and Pelvis without intravenous contrast. All CT scans at this facility use dose modulation, iterative reconstruction, and/or weight based dosing when appropriate to reduce radiation dose to as low as reasonably achievable. COMPARISON: 10/25/2023. 01/20/2021 FINDINGS: Left lower lobe consolidation and atelectasis persists. There is no pneumoperitoneum on the visualized portions of the abdomen. Much of the left hemiabdomen including the anterior abdominal wall is not included on this imaging volume due to body habitus. Changes of cholecystectomy again noted. Given limitations of a noncontrast enhanced exam the liver, spleen, right adrenal gland and pancreas appear unremarkable. Limbs of the left adrenal gland remains somewhat thickened particularly the medial limb, however this is unchanged from prior exam dating back to 01/20/2021 favoring a nonaggressive etiology. Renal collecting systems and ureters are not dilated. Dense atherosclerotic aortoiliac and visceral vascular calcifications again seen. Gas-filled yet nondilated colon again noted in the upper abdomen with what appears to be descending colostomy, only partially imaged. Soft tissue stranding throughout the lower anterior abdominal wall and pelvis again noted suggesting cellulitis. There is no intraperitoneal nor retroperitoneal nor anterior abdominal wall drainable fluid collection/abscess. Bilobed shaped left adnexal fluid attenuation structure has been present since at least 01/20/2021 and likely represents a large ovarian cyst. No definite dilated loops of bowel to suggest bowel obstruction. IMPRESSION: 1. Redemonstration of extensive soft tissue stranding throughout the intra-abdominal wall/pelvis most consistent with cellulitis. No fluid collection/abscess. 2. Persistent nonspecific left lower lobe consolidation and atelectasis. 3. Persistent left adnexal cystic lesion. This has been present since at least 2020. Nonaggressive etiology, however it is still nonspecific. 4. No abdominal nor pelvic fluid collections. Finalized by Wander De La Cruz MD on 11/07/2023 4:15 PM X-ray knee left 3 views Result Date: 11/07/2023 3 VIEWS LEFT KNEE HISTORY: Fracture, pain COMPARISON: None IMPRESSION: * Acute comminuted distal left femur fracture with mild impaction and slight lateral displacement of the main distal fracture fragment measuring 1.7 cm. * Diffuse osteopenia. Finalized by Bart Way MD on 11/07/2023 11:58 AM X-ray chest 1 view Result Date: 11/07/2023 CHEST 1 VIEW HISTORY: Dialysis COMPARISON: 07/17/2023 IMPRESSION: * Stable tracheostomy tube and right-sided dialysis catheter. * Persistent extensive opacities throughout the left hemithorax with volume loss, similar to previous study. Right lung is clear. * Unable to evaluate cardiomediastinal silhouette due to significant abnormalities in the left hemithorax. Finalized by Bart Way MD on 11/07/2023 11:57 AM X-ray femur left 2+ views Result Date: 11/07/2023 XR FEMUR LT 2+ VIEWS HISTORY: distal femur fracture COMPARISON: None available. IMPRESSION: Mildly comminuted fracture distal femoral metadiaphysis, with one third shaft's width lateral displacement of the distal fracture fragment and at least 1.6 cm of override. Osteopenia limits evaluation for intra-articular extension, CT could help further clarify. Finalized by Kelvin Wallis on 11/07/2023 11:55 AM Allergies Allergies Allergen Reactions Iodinated Contrast Media Shortness Of Breath Morphine Shortness Of Breath Fentanyl Patient gets burning and abdominal cramps Gadolinium-Containing Contrast Media Zosyn [Piperacillin-Tazobactam] Current Medications SCHEDULED acetaminophen, 1,000 mg, oral, Q6H YOLA atorvastatin, 20 mg, oral, Daily chlorhexidine, 15 mL, mouth/throat, BID cyclobenzaprine, 5 mg, oral, TID famotidine, 20 mg, intravenous, Q48H FLUoxetine, 30 mg, oral, Daily insulin lispro, 2-10 Units, subcutaneous, Q6H lacosamide, 50 mg, oral, BID levETIRAcetam, 500 mg, oral, TID levothyroxine, 175 mcg, oral, Daily risperiDONE, 1 mg, oral, Daily sennosides-docusate sodium, 2 tablet, oral, Nightly sevelamer, 3,200 mg, oral, TID with meals sodium chloride, 500 mL, intravenous, Once sodium chloride, 10 mL, intravenous, Q96H sodium chloride, 10 mL, intravenous, Q96H sodium chloride, 3 mL, intravenous, Q12H YOLA sodium citrate, 2 mL, intravenous, Q96H sodium citrate, 2 mL, intravenous, Q96H sodium zirconium cyclosilicate, 10 g, oral, Daily with lunch PRN albuterol dextrose dextrose 5 % in water dextrose 50 % in water (D50W) dextrose 50 % in water (D50W) glucagon (human recombinant) magnesium sulfate OR magnesium sulfate midodrine ondansetron oxyCODONE AND oxyCODONE potassium chloride OR potassium chloride potassium chloride in water OR potassium chloride in water sodium phosphate IV OR sodium phosphate IV - central line OR sod phos di, mono-K phos mono sodium chloride sodium chloride sodium chloride sodium chloride sodium chloride sodium citrate sodium citrate Current Infusions dextrose 5 % in water, 100 mL/hr sodium chloride 0.9 %, 3 mL/hr, Last Rate: 3 mL/hr (11/08/23 0415) ROBERT Gross 11/08/23 1124 SICU Academic Critical Care Progress Name: Matthew Neal Date: 11/08/2023 Length of Stay: 1 day(s) Chief Complaint: Fall, left leg injury History of Present Illness: Matthew Neal is a 58 y.o. female with PMH of NSTEMI, diabetes, congestive heart failure, end-stage renal disease s/p tunneled cath, and respiratory failure s/p tracheostomy who presents from OSH with left leg injury. Patient reportedly fell out of bed at LTAC she resides at and rolled her left leg. She immediately began experiencing pain and swelling over left leg. Denies head injury or LOC. Not currently anticoagulated. Overnight Events: Patient seen and examined at bedside by myself. Tachycardic overnight with HR range 108-126. Upon arrival, SBP noted to be in 70s; improved with 1L fluid bolus. Otherwise HDS and afebrile. Tolerated HD well yesterday. She reportedly pulled her NG tube twice last night; subsequently placed in soft restraints. She states she is having pain over her left leg; moderate improvement with pain medicine. She is scheduled for OR today with orthopedic surgery. Past Medical History: Diagnosis Date Anemia CHF (congestive heart failure) ([facility]) Diabetes ([facility]) Morbid obesity ([facility]) NSTEMI (non-ST elevated myocardial infarction) ([facility]) Respiratory failure ([facility]) Past Surgical History: Procedure Laterality Date TRACHEOSTOMY Medications Prior to Admission Medication Sig Dispense Refill Last Dose acetaminophen (TYLENOL) 325 mg tablet Take 2 tablets (650 mg total) by mouth every 6 (six) hours as needed for fever. Other - as prescribed albuterol (PROVENTIL,VENTOLIN) 2.5 mg /3 mL (0.083 %) nebulizer solution Inhale 3 mL (2.5 mg total) by nebulization every 4 (four) hours as needed for shortness of breath. Other - as prescribed ALPRAZolam (XANAX) 0.5 mg tablet Take 1 tablet (0.5 mg total) by mouth in the morning and 1 tablet (0.5 mg total) before bedtime. ALPRAZolam (XANAX) 1 mg tablet Take 1 tablet (1 mg total) by mouth in the morning and 1 tablet (1 mg total) before bedtime. Indications: anxious. aspirin 81 mg Take 1 tablet (81 mg total) by mouth in the morning. atorvastatin (LIPITOR) 20 mg tablet Take 1 tablet (20 mg total) by mouth in the morning. bumetanide (BUMEX) 1 mg tablet Take 2 tablets (2 mg total) by mouth daily. busPIRone (BUSPAR) 10 mg tablet Take 1 tablet (10 mg total) by mouth in the morning and 1 tablet (10 mg total) before bedtime. busPIRone (BUSPAR) 7.5 mg tablet Take 1 tablet (7.5 mg total) by mouth in the morning. cholecalciferol (VITAMIN D3) 1,000 units tablet Take 2 tablets (2,000 Units total) by mouth in the morning. Indications: low vitamin D levels. cyclobenzaprine (FLEXERIL) 5 mg tablet Take 2 tablets (10 mg total) by mouth every 6 (six) hours. Other - as prescribed dicyclomine (BENTYL) 10 mg capsule Take 1 capsule (10 mg total) by mouth 3 (three) times a day. epoetin beta, methoxy peg (MIRCERA) 75 mcg/0.3 mL syringe Inject 75 mcg as directed every 14 (fourteen) days. FLUoxetine (PROzac) 20 mg capsule Take 30 mg by mouth in the morning. folic acid-B tycb-E-ntads-zinc (DIALYVITE) 3-70-15 mg-mcg-mg tablet Take 1 tablet by mouth in the evening. gabapentin (NEURONTIN) 100 mg capsule Take 1 capsule (100 mg total) by mouth 3 (three) times a day. insulin glargine (LANTUS, BASAGLAR) 100 unit/mL (3 mL) insulin pen Inject 20 Units under the skin in the morning and 20 Units in the evening. Inject before meals. (Patient taking differently: Inject 32 Units under the skin in the morning and 32 Units in the evening. Inject before meals.) 15 mL 12 insulin lispro (HumaLOG) 100 unit/mL insulin pen [...] mg/dL, give 10 units. 15 mL 12 insulin lispro (HumaLOG) 100 unit/mL insulin pen Inject 2-8 Units under the skin nightly. Bedtime hyperglycemia dosing. For glucose 201-250 mg/dL, give 2 units. For glucose 251-300 mg/dL, give 4 units. For glucose 301-350 mg/dL, give 6 units. For glucose 351-400 mg/dL, give 8 units. 15 mL 12 lacosamide (VIMPAT) 100 mg tablet Take 0.5 tablets (50 mg total) by mouth in the morning and 0.5 tablets (50 mg total) before bedtime. levETIRAcetam (KEPPRA) 1000 mg tablet Take 0.5 tablets (500 mg total) by mouth 3 (three) times a day. levothyroxine (SYNTHROID, LEVOTHROID) 175 MCG tablet Take 1 tablet (175 mcg total) by mouth in the morning. midodrine (PROAMATINE) 10 mg tablet Take 1 tablet (10 mg total) by mouth as needed (Hemodialysis - PRN at initiation and midway through dialysis session). 90 tablet 3 Other - as prescribed naloxone (NARCAN) 4 mg/actuation spray,non-aerosol nasal spray Administer 1 spray (4 mg total) into alternating nostrils as needed for opioid reversal. 3 each 3 Other - as prescribed ondansetron (ZOFRAN) 4 mg tablet Take 1 tablet (4 mg total) by mouth every 6 (six) hours as needed for nausea or vomiting. Other - as prescribed oxycodone HCl (OXYCODONE ORAL) Take 5 mg by mouth every 6 (six) hours as needed. Other - as prescribed pantoprazole (PROTONIX) 40 mg EC tablet Take 1 tablet (40 mg total) by mouth in the morning. polyethylene glycol (GLYCOLAX) 17 gram/dose powder Take 17 g by mouth in the morning. potassium chloride (KLOR-CON M 20) 20 MEQ CR tablet Take 1 tablet (20 mEq total) by mouth in the morning. risperiDONE (RisperDAL) 1 mg tablet Take 1 tablet (1 mg total) by mouth in the morning. sennosides-docusate sodium (SENOKOT-S) 8.6-50 mg Take 1 tablet by mouth every 12 (twelve) hours as needed for constipation. (Patient taking differently: Take 1 tablet by mouth once daily at bedtime.) 60 tablet 3 sevelamer (RENVELA) 800 mg tablet Take 4 tablets (3,200 mg total) by mouth in the morning and 4 tablets (3,200 mg total) at noon and 4 tablets (3,200 mg total) in the evening. Take with meals. albuterol (ACCUNEB) 0.63 mg/3 mL nebulizer solution Inhale 3 mL (0.63 mg total) by nebulization every 6 (six) hours as needed for wheezing. predniSONE (DELTASONE) 20 mg tablet Take 1 tablet (20 mg total) by mouth in the morning. (Patient not taking: Reported on 11/07/2023) Unknown acetaminophen, 1,000 mg, oral, Q6H YOLA cyclobenzaprine, 5 mg, oral, TID famotidine, 20 mg, intravenous, Q48H FLUoxetine, 30 mg, oral, Daily insulin lispro, 2-10 Units, subcutaneous, Q6H lacosamide, 50 mg, oral, BID levETIRAcetam, 500 mg, oral, TID levothyroxine, 175 mcg, oral, Daily magnesium sulfate, 2,000 mg, intravenous, Once risperiDONE, 1 mg, oral, Daily sennosides-docusate sodium, 2 tablet, oral, Nightly sevelamer, 3,200 mg, oral, TID with meals sodium chloride, 10 mL, intravenous, Q96H sodium chloride, 10 mL, intravenous, Q96H sodium chloride, 3 mL, intravenous, Q12H YOLA sodium citrate, 2 mL, intravenous, Q96H sodium citrate, 2 mL, intravenous, Q96H sodium zirconium cyclosilicate, 10 g, oral, Daily with lunch dextrose 5 % in water, 100 mL/hr sodium chloride 0.9 %, 3 mL/hr, Last Rate: 3 mL/hr (11/08/23 5947) Allergies Allergen Reactions Iodinated Contrast Media Shortness Of Breath Morphine Shortness Of Breath Fentanyl Patient gets burning and abdominal cramps Gadolinium-Containing Contrast Media Zosyn [Piperacillin-Tazobactam] History reviewed. No pertinent family history. Social History Socioeconomic History Marital status: Tobacco Use Smoking status: Never Smokeless tobacco: Never Vaping Use Vaping status: Never Used Substance and Sexual Activity Alcohol use: Not Currently Drug use: Never Sexual activity: Defer Other Topics Concern Caffeine Use Yes Social Determinants of Health Food Insecurity: No Food Insecurity (11/07/2023) Hunger Screening Food Insecurity - Worry: Never True Food Insecurity - Inability: Never True Transportation Needs: No Transportation Needs (11/07/2023) PRAPARE - Transportation Lack of Transportation (Medical): No Lack of Transportation (Non-Medical): No Physical Activity: Inactive (09/14/2023) Received from [facility] Exercise Vital Sign Days of Exercise per Week: 0 days Minutes of Exercise per Session: 0 min Stress: No Stress Concern Present (09/14/2023) Received from [facility] [employer] [place] [facility] [employer] [facility] - Occupational Stress Questionnaire Feeling of Stress : Not at all Interpersonal Safety: Not At Risk (11/07/2023) Humiliation, Afraid, Rape, and Kick questionnaire Fear of Current or Ex-Partner: No Emotionally Abused: No Physically Abused: No Sexually Abused: No Housing Instability: Low Risk (11/07/2023) Housing Instability Housing Instability: No Temp: [36.3 C (97.4 F)-36.9 C (98.4 F)] 36.8 C (98.2 F) Pulse: [108-126] 122 Resp: [0-28] 18 BP: (69-133)/(23-92) 97/53 Arterial Line BP: (98-123)/(51-58) 98/51 FiO2 (%): [40 %] 40 % SpO2: [95 %-100 %] 97 % O2 Device: Trach In-situ O2 Device: Trach In-situ Physical Exam General: Awake, alert and oriented x3, in no acute distress HENT: Head atraumatic, normocephalic, external ears and nose are normal Eyes: Conjunctivae clear, non-icteric, EOMI Pulmonary: Regular, non-labored respirations, tracheostomy Cardiovascular: Regular rate and rhythm, radial pulses 2+, moderately edematous b/l lower extremities Abdomen: Soft, non-tender, non-distended, obese abdomen Musculoskeletal: Limited ROM L lower extremity, R lower extremity normal ROM without obvious deformity Neurological: No gross neurologic deficit, sensation grossly intact Skin: Warm, dry, without jaundice Ventilator Settings Vent Mode: PRVC-AC FiO2 (%): 40 % Resp Rate (Set): 18 Vt (Set, mL): 400 mL Avea Vt (Set, L): 0.4 Liter PEEP/CPAP (cm H2O): 8 cm H20 Insp Time (sec): 1 sec Trigger Sensitivity Flow (L/min): 1 L/min Trigger Sensitivity Pressure (cm H2O): 3 cm H2O Humidification: Heater Heater Temperature: 37.2 C (99 F) Results from last 3 days Lab Units 11/08/23 0310 11/07/23 1824 11/07/23 1510 11/07/23 1115 BUN mg/dL 44* 69* 74* 78* CREATININE mg/dL 4.31* 5.26* 5.85* 5.72* POTASSIUM mmol/L 4.5 5.2* 5.7* 5.7* CO2 mmol/L 22 22 22 22 CHLORIDE mmol/L 97* 92* 91* 89* MAGNESIUM mg/dL 1.7* 1.7* -- 1.8 AST U/L -- 11 11 -- ALT U/L -- 15 18 -- ALK PHOS U/L -- 182* 210* -- Results from last 3 days Lab Units 11/07/23 1510 11/07/23 1115 INR 1.0 1.0 PROTIME sec 11.7 12.2 Results from last 3 days Lab Units 11/08/23 0310 11/07/23 1824 11/07/23 1510 11/07/23 1115 WBC X10E9/L 7.1 6.3 7.4 7.7 HEMOGLOBIN g/dL 10.6* 10.9* 11.5* 11.4* HEMATOCRIT % 32.7* 33.2* 34.4* 35.4 PLATELETS X10E9/L 94* 91* 90* 105* MCV fL 98 97 97 98 MCH pg 31.8 32.0 32.6 31.7 MCHC g/dL 32.4 32.9 33.5 32.2 RDW % 15.7* 15.5* 15.9* 15.9* EOS ABS AUTO X10E9/L 0.1 0.1 0.1 0.2 Microbiology Results Procedure Component Value Units Date/Time Urine culture [[id number]] Collected: 11/07/23 1226 Specimen: Urine Updated: 11/07/23 1515 Glucose Results from last 7 days Lab Units 11/08/23 0525 11/08/23 0310 11/07/23 2324 11/07/23 1824 11/07/23 1510 11/07/23 1332 11/07/23 1115 BEDSIDE GLUCOSE mg/dL 187* -- 182* -- -- 263* -- GLUCOSE mg/dL -- 189* -- 219* 218* -- 255* No intake/output data recorded. acetaminophen, 1,000 mg, oral, Q6H YOLA cyclobenzaprine, 5 mg, oral, TID famotidine, 20 mg, intravenous, Q48H FLUoxetine, 30 mg, oral, Daily insulin lispro, 2-10 Units, subcutaneous, Q6H lacosamide, 50 mg, oral, BID levETIRAcetam, 500 mg, oral, TID levothyroxine, 175 mcg, oral, Daily magnesium sulfate, 2,000 mg, intravenous, Once risperiDONE, 1 mg, oral, Daily sennosides-docusate sodium, 2 tablet, oral, Nightly sevelamer, 3,200 mg, oral, TID with meals sodium chloride, 10 mL, intravenous, Q96H sodium chloride, 10 mL, intravenous, Q96H sodium chloride, 3 mL, intravenous, Q12H YOLA sodium citrate, 2 mL, intravenous, Q96H sodium citrate, 2 mL, intravenous, Q96H sodium zirconium cyclosilicate, 10 g, oral, Daily with lunch dextrose 5 % in water, 100 mL/hr sodium chloride 0.9 %, 3 mL/hr, Last Rate: 3 mL/hr (11/08/23 0415) Microbiology Results Procedure Component Value Units Date/Time Urine culture [[id number]] Collected: 11/07/23 1226 Specimen: Urine Updated: 11/07/23 1515 Lines/Drains PICC Single Lumen 08/03/20 (Active) Hemodialysis Catheter Double Cuffed Right Internal Jugular (Active) Hemodialysis Catheter Triple 10/03/22 Cuffed Right Subclavian (Active) Peripheral IV 11/07/23 Left Antecubital (Active) Line Status Blood return noted;Flushed;Saline locked 11/07/23 1229 Site Assessment Clean;Dry;Intact 11/07/23 1229 Dressing Type Transparent 11/07/23 1229 Dressing Status Clean;Dry;Intact 11/07/23 1229 Urinary Catheter 11/07/23 Single lumen (Active) Catheter Status Patent 11/07/23 1238 Site Assessment Clean;Skin intact 11/07/23 1238 Collection Container Standard drainage bag/container 11/07/23 1238 Securement Method Securing device (Describe) 11/07/23 1238 Reason for Continuing Physician order 11/07/23 1238 Urine Color Yellow/straw 11/07/23 1238 Urine Appearance Cloudy;Sediment;Mucous 11/07/23 1238 Surgical Airway 12/11/20 Shiley Cuffed 6 (Active) Surgical Airway Cuffed 6 (Active) Surgical Airway Shiley Cuffed 6 (Active) Surgical Airway 11/07/23 Shiley Cuffed 6 (Active) Status Secured 11/07/23 1458 Site Assessment Clean;Dry 11/07/23 1458 Ties Assessment Intact;Dry;Clean 11/07/23 1112 Emergency Equipment at Bedside Bag and mask;Suction 11/07/23 1458 ACTIVE PROBLEM LIST: Left distal femur fracture s/p fall ESRD Ventilator dependence Chronic abdominal wound with possible cellulitis Type 1 DM CAD ASSESSMENT/PLAN: Matthew Neal is a 58 y.o. female Presenting from [facility] with left femur fracture s/p fall rom bed. Chronic trach and daily dialysis dependant. 1. Neuro Hospital Meds: Sedation: none Analgesia: Tylenol, Oxycodone Other: Midodrine, Vimpat, Keppra, Flexeril, Prozac, Risperdal PMH: Anxiety, depression Home Meds: Tylenol, alprazolam, buspirone,prozac, gabapentin, vimpat, midodrine, keppra, narcan, oxycodone, risperidone, flexeril PSH: 2. Cardiovascular Hemodynamics: Tachycardic rate, regular rhythm Normotensive Pressors: none Goal MAP >65 Continuous cardiac monitoring Hospital Meds: PMH: NSTEMI, CAD, CHF Home Meds: Aspirin, atorvastatin PSH: Code Status: Full 3. Pulmonary Breathing Support: Ventilator Settings: PRVC, FiO2 40%, PEEP 8, RR 18 SpO2: 96% Continuous pulse oximetry Hospital Meds: Albuterol PMH: COPD, Respiratory failure s/p tracheotomy Home Meds: Albuterol PSH: Surgical airway creation 4. 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 Renal/Genitourinary End stage renal disease Daily dialysis patient; patient has tunneled catheter Nephrology consulted and following Electrolytes: Results from last 3 days Lab Units 11/08/2330911/07/23 18211/07/23 15111/07/23 1115 SODIUM mmol/L 132* 129* 128* 127* CHLORIDE mmol/L 97* 92* 91* 89* POTASSIUM mmol/L 4.5 5.2* 5.7* 5.7* CO2 mmol/L 22 22 22 22 BUN mg/dL 44* 69* 74* 78* CREATININE mg/dL 4.31* 5.26* 5.85* 5.72* MAGNESIUM mg/dL 1.7* 1.7* -- 1.8 PHOSPHORUS mg/dL 4.7 5.4* -- -- Will replace electrolytes PRN per ICU protocol Fluid Balance: IV Fluids: none UOP/24 H: 1,820mL Net Fluid/24H: Intake/Output Summary (Last 24 hours) at 11/08/2023621 Last data filed at 11/07/2023 2120 Gross per 24 hour Intake 360 ml Output 1820 ml Net -1460 ml Net Fluid Since Admission: Net IO Since Admission: -1,460 mL [11/08/23621] Strict monitoring of intake and output Hospital Meds: PMH: ESRD, daily dialysis Home Meds: Bumex PSH: 6. Heme Labs: Results from last 3 days Lab Units 11/08/2330911/07/23182311/07/23150911/07/23 1115 HEMOGLOBIN g/dL 10.6* 10.9* 11.5* 11.4* PLATELETS X10E9/L 94* 91* 90* 105* INR -- -- 1.0 1.0 Type and Screen: O RH+ Blood Products Administered: none Will continue to monitor hgb and transfuse PRN 7. ID Tmax/24H: Temp (24hrs), Av.7 C (98 F), Min:36.3 C (97.4 F), Max:36.9 C (98.4 F) Labs: Results from last 3 days Lab Units 11/08/2330911/07/23182311/07/23 1510 WBC X10E9/L 7.1 6.3 7.4 Hospital Meds: Antibiotics: none Continue to monitor for signs of infection 8. Endocrine Results from last 3 days Lab Units 11/08/23 0525 11/08/23 0310 11/07/23 2324 BEDSIDE GLUCOSE mg/dL 187* -- 182* GLUCOSE mg/dL -- 189* -- Goal Blood Glucose <180 mg/dL Hospital Meds: SSI, Lantus BID PMH: Type 1 diabetes mellitus Home Meds: Lantus, HumaLOG, levothyroxine, prednisone PSH: 9. Musculoskeletal Left distal femur fracture, displaced, closed CT scan of LLE 11/06: Comminuted distal femoral fracture with extension into the intercondylar portion of the knee. Orthopedic surgery consulted and following Splinted and immobilized L knee Plan for repair in OR today PMH: PSH: Home meds: PT/OT when able 10. Prophylaxis Respiratory: none GI: Pepcid DVT: SCD Cuffs, hold chem ppx 11. Lines, Drains, and Airway Hemodialysis catheter double lumen cuffed R IJ PICC line Hemodialysis cath triple lumen cuffed R subclavian 2x PIV Restrepo Tracheostomy Dispo: Critical, remain in SICU Marie Quick MD [employer], PGY-1 Associated attestation - Leah Eric MD - 11/08/2023 4:36 PM EDT Name: Matthew Neal Date: 11/08/2023 Length of Stay: 1 day(s) ACTIVE PROBLEM LIST: Fall Left distal femur fracture Chronic hypoxic, hypercapnic respiratory failure Ventilator dependence ESRD on HD Hyponatremia Hypomagnesemia Chronic abdominal wound with possible cellulitis Hyperglycemia H/O CAD ASSESSMENT/PLAN: 1. Neuro: Neurochecks Multimodal pain control Resume home meds 2. Cardio: Continues hemodynamic monitoring Maintain map above 65 Goal systolic < 160 mmHg 3. Resp: Maintain O2 sat > 92% Monitor for signs and respiratory distress Change CPAP to BIPAP Resume COPD inhalers Repeat ABG in 3 hours Trach care Ventilator Settings Vent Mode: (S) CPAP FiO2 (%): 40 % Resp Rate (Set): 18 Vt (Set, mL): 400 mL Avea Vt (Set, L): 0.4 Liter PEEP/CPAP (cm H2O): 8 cm H20 Insp Time (sec): 1 sec Pressure Support Above PEEP Set (cm H2O): 15 cm H20 Trigger Sensitivity Flow (L/min): 1 L/min Trigger Sensitivity Pressure (cm H2O): 3 cm H2O Humidification: Heater Heater Temperature: 37.2 C (99 F) 4. GI: NPO for surgery Consult wound care for chronic abdominal wall wound 5. Heme: Monitor H&H Transfuse for hb less than 7 or symptomatic anemia 6. Renal: Monitor urine output Monitor renal function ICU electrolyte replacement protocol Replete Na and Mg F/U nephrology recs 7. ID: Monitor for signs and symptoms of sepsis 8. Endo: Monitor blood sugar Use insulin sliding scale as needed 9. MS: Pressure ulcer prophylaxis 10: Prophylaxis: DVT mechanical prophylaxis DVT chemical prophylaxis on hold for surgery Dispo: Critical This patient remains critically ill and requires constant monitoring and titration of care by a Critical Care Consultant [employer]. Failure to do so may result in further organ system failure, imminent deterioration, or . Critical care time spent directly with the patient and family: 36 min Critical care was time spent personally by me on the following activities: Development of treatment plan with the patient or surrogate, discussions with consultants, discussions with the primary provider, ordering and performing treatments and interventions, ordering and review of laboratory studies, ordering and review of radiographic studies, pulse oximetry, re-evaluation of patient's condition, review of old charts, vascular access procedures, evaluation of patient's response to treatment, examination of patient, interpretation of cardiac output measurements and obtaining history from patient or surrogate Electronically signed by Leah Eric MD [facility] General Surgeons Trauma, Acute Care Surgery and Surgical Critical Care Dr. Arias into see patient. ROBERT Pearson 11/07/23 4646 [facility] Department of Pharmacy Pharmacist to Physician Communication The dose of famotidine has been changed to 20 mg every 48 hours per the [facility] approved renal dosing guidelines, based on an estimated creatinine clearance is 7.7 mL/min (A) (by C-G formula based on SCr of 5.85 mg/dL (H)). Thank you, DAIVE CHANG RPH documented in this encounter [facility] 11-11-2023 Plan of care note Problem: Safety Goal: Patient will be injury free during hospitalization Description: INTERVENTIONS: 1. Assess patient's risk for falls and implement fall prevention plan of care per policy 2. Provide and maintain a safe environment 3. Proper use of double Identifiers 4. Medication administration using the 5 rights 5. Hand hygiene 6. Specimens are labeled at the bedside 7. Instruct patient/ patient product representative about use of safety devices 8. Include patient/ patient product representative in decisions related to safety Outcome: Progressing Note: Evaluation of progress towards goal: Problem: Alternate Airway Goal: Tracheotomy/laryngectomy will be maintained safely Description: INTERVENTIONS 1. Keep resuscitation bag, mask, oxygen connection tubing, and extra tracheostomy at bedside; accompanying patient at all times 2. Obturator in plastic bag, readily available at bedside 3. Assess trach site 4. Utilize trach securing device and change as needed per policy 5. Support tubing to avoid pressure from drag of tubing 6. Provide trach care at least every 8 hrs and as needed 7. Change tracheostomy/inner cannula per policy as needed Outcome: Progressing Note: Evaluation of progress towards goal: [facility] 11-11-2023 Procedure note Associated Ord er(s): HEMODIALYSIS INPATIENT PT had 3.5 hours of dialysis today with a net fluid removal of 1.7kg Pre wt 150.0kg Post wt 148.3kg Unable to remove more fluid due to blood pressure. Albumin spa and midodrine 10mg po for two doses given. Catheter functioned well, reversed at 400 pump speed. [facility] 11-11-2023 Procedure note Associated Ord er(s): HEMODIALYSIS INPATIENT PT had 3.5 hours of dialysis today with a net fluid removal of 1.7kg Pre wt 150.0kg Post wt 148.3kg Unable to remove more fluid due to blood pressure. Albumin spa and midodrine 10mg po for two doses given. Catheter functioned well, reversed at 400 pump speed. Associated Order(s): HEMODIALYSIS INPATIENT See Previous note of HD Associated Order(s): HEMODIALYSIS INPATIENT Patient tolerated 3.5 hour dialysis treatment fairly. Midodrine and Albumin given at beginning of treatment for hypotension and another dose given mid treatment for hypotension. Lowest BP 86/43. Patient asymptomatic. CVC ran reversed due to arterial pressure running high. Patient lines locked with alteplase at the end of treatment. Post weight- 152.8 kg Bed scales shows removal of 2.6 kg Post BP- 101/48 Associated Order(s): HEMODIALYSIS INPATIENT Pt completed 3 hr HD tx. Pt tolerated tx fairly. Pt was hypotensive during tx. Called Dr Díaz for tx of hypotension. ordered to not remove any additional fluid. Pt ran consistent at 350 BFR. No medications ordered or given during tx. BP 97/75 HR 117 Post tx wt 153 kg ( Bedscale not working at beginning of tx) Fluid removed. 1.3 L Report given to Primary RN. - Melani Haddad RN 11/07/23 9:33 PM documented in this encounter [employer] 11-11-2023 Progress note Formatting of t his note is different from the original. Physical Therapy Pt not available for PT eval as she's getting [facility]. [facility] 11-11-2023 Progress note Formatting of t his note is different from the original. Occupational Therapy CANCEL - Deferred (pt getting dialysis, cont as able w/ OT eval) [facility] 11-10-2023 Plan of care note Problem: Pain Goal: Patient goal is pain score less than 4, able to rest, and participant in treatment plan as appropriate Description: INTERVENTIONS: 1. Encourage patient or legal product representative to report early pain and ask for pain medicine when needed 2. Assess pain using appropriate pain scale and include the scale used when documenting 3. Administer analgesics based on type and severity of pain and evaluate response within appropriate time frame 4. Implement non-pharmacological measures as appropriate and evaluate response 5. Consider cultural and social influences on pain and pain management 6. Notify LIP if interventions ineffective or patient reports new pain 7. Monitor vital signs including pulse ox, end-tidal CO2 based on pain intervention 8. Reassess pain per policy 9. Teach patient or legal product representative interventions for comforting Outcome: Progressing Note: Evaluation of progress towards goal: Denies pain Problem: Safety Goal: Patient will be injury free during hospitalization Description: INTERVENTIONS: 1. Assess patient's risk for falls and implement fall prevention plan of care per policy 2. Provide and maintain a safe environment 3. Proper use of double Identifiers 4. Medication administration using the 5 rights 5. Hand hygiene 6. Specimens are labeled at the bedside 7. Instruct patient/ patient product representative about use of safety devices 8. Include patient/ patient product representative in decisions related to safety Outcome: Progressing Note: Evaluation of progress towards goal: Safety maintained [facility] 11-10-2023 Procedure note Associated Ord er(s): HEMODIALYSIS INPATIENT See Previous note of HD [facility] 11-10-2023 Plan of care note Respiratory Therapy Clinical Practice Guidelines Consult Clinical Practice Guidelines Ordered Consult Assessment: Consult, Broncho-pulmonary hygiene, Bronchodilator, Mechanical ventilator, Oxygen Oxygen Indications: Hypoxemia Broncho-pulmonary Hygiene Indications: Retained secretions or difficulty with clearance Broncho-pulmonary Hygiene Total: 1 Bronchodilator Indications: Bronchospasm/wheezing Bronchodilator Total: 1 Vital Signs BP: 99/61 Pulse: 113 Heart Rate Source: Monitor, Pulse Ox Resp: 16 SpO2: 98 % O2 Device: Trach In-situ FiO2 (%): 40 % EtCO2 (mmHg): 40 mmHg ETCO2 Alarm - High: 50 ETCO2 Alarm - Low: 20 Patient Position: Semi-fowlers Respiratory Assessment Assessment Type: Subsequent assessment Level of Consciousness: Alert Respiratory Pattern: Regular Chest Assessment: Chest expansion symmetrical Bilateral Breath Sounds: Clear, Diminished Cough Cough: None Suctioning Suction: Oral Oral Suctioning/Secretions Oral Suction Type: Oral Oral Suction Device: Soft tip Oral Secretion Amount: Small Oral Secretion Color: Clear Oral Secretion Consistency: Thin Oral Suction Tolerance: Tolerated well Oral Suctioning Adverse Effects: None Airway Suctioning/Secretions Airway Suction Type: (pt denied need for sx) Airway Suction Device : Inline Airway Secretion Amount: Small Airway Secretion Color: White Airway Secretion Consistency: Thick Airway Suction Tolerance: Tolerated well Airway Suctioning Adverse Effects: None Readings Vt Spontaneous (mL): 500 mL Vt (observed, mL): 0.3 mL Avea Vt Mandatory Exp (L): 0.34 Minute Ventilation (L/min): 8.59 L/min PIP Observed (cm H2O): 21 cm H2O Total Rate : 17 MAP (cm H2O): 13 CM H20 EtCO2 (mmHg): 40 mmHg I:E Readin:1.7 Dynamic Compliance (L/cm H2O): 39.05 L/cm H2O Patient Active Problem List Diagnosis Dyspnea NSTEMI (non-ST elevated myocardial infarction) ([facility]) Infected prosthetic mesh of abdominal wall ([facility]) Morbid obesity ([facility]) End stage renal disease ([facility]) Ventilator dependence ([facility]) Coronary artery disease Diabetes 1.5, 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 RT Reassessment Due In: 12 hours Mechanical Ventilator Broncho-Pulmonary Hygiene Breath Sounds Level 1: Slightly Diminished or clear Chest X-Ray Level 1: Possible signs of consolidation and/or atelectasis or clear Sputum Production Level 1: None or small amount of thin or watery secretions with suctioning History & Physical Level 1: None New onset of bronchitis or existing chronic pulmonary condition. * (not in an exacerbation) Patients Current Level & Intervention: Level 1: No BP hygiene indicated. Continue suctioning every 4 hours ----- Problem: Alternate Airway Goal: Tracheotomy/laryngectomy will be maintained safely Description: INTERVENTIONS 1. Keep resuscitation bag, mask, oxygen connection tubing, and extra tracheostomy at bedside; accompanying patient at all times 2. Obturator in plastic bag, readily available at bedside 3. Assess trach site 4. Utilize trach securing device and change as needed per policy 5. Support tubing to avoid pressure from drag of tubing 6. Provide trach care at least every 8 hrs and as needed 7. Change tracheostomy/inner cannula per policy as needed Outcome: Progressing Note: Evaluation of progress towards goal: Tracheostomy remains in place, pt binu CPAP 8/PS 12 without difficulty/complaints. Cont CPAP as binu. ETCO2/SaO2 WNL. Minimal secretions per trach. Ok to transfer to the Progressive unit with Vent. Cont oral care Q4hrs with oral care kit, Chlorhexidine BID with toothbrush. [facility] 11-10-2023 Progress note Formatting of t his note might be different from the original. DISCHARGE PLANNING NOTE Case discussed in daily transition rounds and chart reviewed by CN. Discharge Plan remains: Return to [facility]. [facility] in [place] ready for patient's return: chronic vent/trach, non-ambulatory at baseline, dialyzes 5x/week in-house at her facility. Updated notes sent to [facility]. CN will continue to follow and is available should any further needs arise. - Natalya Blanco RN 11/10/23 2:00 PM [facility] 11-10-2023 Hospital Discharge instructions Jeanie Moya PA-C - 11/10/2023 12:58 PM EDT ORTHOPAEDIC DISCHARGE INSTRUCTIONS Diagnosis: Left femur fracture Procedure: ORIF left distal femur fracture Follow-Up Appointment: Dr. Vasquez on Future Appointments Date Time Provider Department Center 11/23/2023 12:45 PM Jagdish Vasquez MD [facility] KRISTIN [facility] Office Location: [place] [address] Call 911 immediately if you experience: Chest pain, difficulty breathing, or shortness of breath. Call the office for concerns related to: calf pain, leg swelling, fever/chills, redness or drainage around the incision sites, prolong numbness/tingling, or increased pain-that is not relieved with medications, ice and elevation. Weight-bearing instructions: Left lower extremity:Non weight bearing on affected limb Incision care: Keep clean and dry. Replace with clean and dry dressing if applicable. Do not soak submerge or get wounds wet. Do not apply creams or ointments to incision unless instructed to do so. Perform dressing changes after washing her hands and practicing good personal hygiene. Staple care: Do not remove. They will be removed at your postop appointment. Exercises and range of motion: Wiggle (flex and extend) fingers/toes of affected extremity frequently with gentle range of motion. Placed ice bag on affected extremity: 20 minutes on every 2-4 hours. Elevate the affected extremity above the heart to reduce swelling. Medications: Refer to discharge medication reconciliation form for complete discharge medication list. Vitamins/supplements It is recommended to take Calcium and Vitamin D for bone health. Please refer to the medication reconciliation form for exact doses Pain medications Pain medicine has been prescribed for management of your pain symptoms. Please refer to the medication reconciliation form for exact doses. Prevention of blood clots Many orthopedic conditions can predispose you to blood clots. Medications for prophylaxis against blood clots are appropriate they have been prescribed to you and are present on her medication reconciliation form. Please refer to that form for exact doses. The following attachments cannot be sent through Care Everywhere.Preventing falls in adults (Gabonese)Acute Pain, Adult (Gabonese)General Trauma Discharge Instructions (Gabonese)documented in this encounter [employer] 11-10-2023 Progress note Formatting of t his note is different from the original. Speech Therapy Videofluoroscopic Swallow Study Evaluation and Treatment Note Impressions Oral Phase: Mild-moderate Pharyngeal Phase: Mild, Moderate Functional Oral Intake Scale: Total PO with multiple consistencies requiring special prep Level 5 Minced & Moist (MM5) Diet with Level 3 Moderately Thick Liquids (MO3). Exam completed on full vent support with RT supervision. Pt will need full assistance with PO. Recommendations Diet Level: Level 5 Minced and Moist Liquid Level: Level 3 Moderately Thick Compensatory Strategies: Follow aspiration precautions, Small sips/bites, One sip/bite at a time Supervision/Positioning: Patient at 90 degress for all PO intake (including medication), Supervise all PO intake, Patient to remain upright 15 minutes after meals, Assist with feeding Medications: In applesauce/puree, Crushed Referrals: Dysphagia therapy, [facility] Discharge Recommendations: Other (comment) (ongoing ST services) Plan Frequency: 2-3days/week Duration: until discharge Treatments/Modalities: Safety strategies, Oral motor treatment plan, Pharyngeal strengthening Need for skilled Speech Language Pathology Services to address deficits in feeding/swallowing due to a status decline resulting from fall. Patient reportedly fell out of bed at [facility] where she resides. Pt found to have comminuted distal femoral fx with extension into the intercondylar portion of the knee. Pt went to OR 11/07 for ORIF. Pt with chronic tracheostomy/vent support d/t respiratory failure. Reportedly pt with previous PEG, however has since been removed and pt reports that she was eating and drinking chopped foods/thin liquids prior to admission. Speech consulted to assess swallow function. Pt educated on purpose of exam, contrast administration, and procedural techniques prior to initiation of exam. Pt educated on diet recommendations, plan of care, and encouraged to use safety strategies in order to maintain safe PO intake following exam. Prognosis Services: Skilled ITALIAN TUTOR services to address above deficits Prognosis/Potential: Good Considerations: Age, Cognition, Previous level of function, Severity of impairments Assessment Baseline Assessment Respiratory Status: Tracheostomy, Ventilator, Cuffed, Inflated Allergies Marked As Reviewed: Complete Consistencies Tested Views: Lateral position Level 0 Thin: Spoon, Cup, Straw Level 2 Mildly Thick: Cup, Straw Level 3 Moderately Thick: Cup, Straw Level 4 Pureed: Spoon Level 6 Soft & Bite-Sized: Spoon Modified Barium Swallow Impairment Profile (MBSImP) Oral Impairment: Yes Component 1: Lip Closure: escape progressing to mid-chin Component 2: Tongue Control During Bolus Hold: posterior escape of less than half of bolus Component 3: Bolus Preparation/Mastication: disorganized chewing/mashing with solid pieces of bolus unchewed Component 4: Bolus Transport/Lingual Motion: repetitive/disorganized tongue motion Component 5: Oral Residue: residue collection on oral structures Component 6: Initiation of Pharyngeal Swallow: bolus head in pyriforms Pharyngeal Impairment: Yes Component 7: Soft Palate Elevation: no bolus between soft palate/posterior pharyngeal wall Component 8: Laryngeal Elevation: partial superior movement of thyroid cartilage/partial approximation of arytenoids to epiglottic petiole Component 9: Anterior Hyoid Excursion: partial anterior movement Component 10: Epiglottic Movement: partial inversion Component 11: Laryngeal Vestibular Closure - Height of the Swallow: incomplete, narrow column of contrast/air in laryngeal vestibule Component 12: Pharyngeal Stripping Wave: present - diminished Component 13: Pharyngeal Contraction (A/P view only): could not be determined due to logistical reasons not related to physiologic impairment Component 14: Pharyngoesophageal Segment Opening: partial distension/partial duration, partial obstruction of flow Component 15: Tongue Base Retraction: narrow column of contrast/air between tongue base and posterior pharyngeal wall Component 16: Pharyngeal Residue: collection of residue within or on pharyngeal structures MBSImP Overall Impression Scores Oral Impairment Total: 15 Pharyngeal Impairment Total: 10 Penetration/Aspiration Scale Penetration/Aspiration Scale Performed: Yes Level 0 Thin: Contrast entered the airway, remained above the vocal folds, and was not ejected from the airway Level 2 Mildly Thick: Contrast entered the airway, remained above the vocal folds, and was not ejected from the airway Level 3 Moderately Thick: Contrast did not enter the airway Level 4 Pureed: Contrast did not enter the airway Level 6 Soft & Bite-Sized: Contrast did not enter the airway Trialed Compensatory Strategies Strategies Utilized: Small sips/bites, Double swallow, Controlled bolus Effective: Yes Pain Assessment Pain Assessment: No/denies pain Plan Diagnosis Code Swallowing: R13.12 Dysphagia, oropharyngeal phase Speech Therapy Care Plan Speech Therapy Care Plan (Active) Template: ST - Dysphagia Problem: Swallowing Dates: Start: 11/10/23 Disciplines: ITALIAN TUTOR Goal: LTG: Patient will maintain adequate nutrition/ hydration with optimum safety and efficiency of swallowing function of oral intake without overt signs/symptoms of aspiration for the highest appropriate diet level Dates: Start: 11/10/23 Expected End: 12/08/23 Disciplines: ITALIAN TUTOR Outcomes Date/Time User Outcome 11/10/23 1031 DANILO Kulkarni Progressing Goal: STG: Patient will tolerate therapeutic feeding trials of advanced textures with 90% accuracy with minimal cueing Dates: Start: 11/10/23 Expected End: 12/08/23 Disciplines: ITALIAN TUTOR Outcomes Date/Time User Outcome 11/10/23 1031 DANILO Kulkarni Progressing Speech Therapy Care Plan (Resolved) There are no resolved problems. Principal Problem: Fall Active Problems: Infected prosthetic mesh of abdominal wall (CMS-HCC) Surgical wound present Abdominal wall skin ulcer, with fat layer exposed ([facility]) [facility] 11-10-2023 Progress note Formatting of t his note is different from the original. Speech Therapy Bedside Swallow/ Feeding Evaluation Impressions Oral Dysphagia: Mild Pharyngeal Dysphagia Suspected: Yes Will plan for VFSS. Pt with chronic trach/vent with previous PEG per pt report. Unable to locate any previous formal swallow assessments in EMR. Opacities/infiltrates noted in CXR and CT chest on admission. Formal swallow study warranted to assess swallow function and safety. Recommendations Diet Level: NPO Liquid Level: No liquids Referrals: VFSS Discharge Recommendations: Extended care placement Plan Frequency: 2-3days/week Duration: until discharge Need for skilled Speech Language Pathology Services to address deficits in feeding/swallowing due to a status decline resulting from trach/vent. Pt is a 58yo female with h/o NSTEMI, diabetes, congestive heart failure, end-stage renal disease s/p tunneled cath, and respiratory failure s/p tracheostomy who presents from OSH with left leg injury. Patient reportedly fell out of bed at LT[facility] she resides at and rolled her left leg. Pt found to have comminuted distal femoral fx with extension into the intercondylar portion of the knee. Pt went to OR 11/07 for ORIF. Reportedly pt with previous PEG, however this has since been removed and pt reports that she was eating and drinking chopped foods/thin liquids prior to admission. Speech consulted to assess swallow function. Prognosis Services: Skilled ITALIAN TUTOR services to address above deficits Prognosis/Potential: Good Considerations: Age, Previous level of function Assessment Baseline Assessment Prior BSSE/VFSS: na, previous records not available Additional Testing Results: Chest X-Ray, Computed Tomography Setting Prior to Admission: Extended care facility Associated Problems: Shortness of breath Respiratory Status: Tracheostomy, Ventilator, Cuffed, Inflated (6XLT distal) Behavior/Cognition: Alert, Cooperative Dentition: Edentulous Patient Positioning: Upright in bed Baseline Vocal Quality: (intermittent strained voicing noted over trach/vent) Ability to Control Secretions: Yes Allergies Marked As Reviewed: Complete Oral/Motor Overall Oral/Motor Status: Exceptions to Within Functional Limits Labial ROM: Reduced Lingual ROM: Reduced Lingual Strength: Reduced Lingual Coordination: Reduced Vocal Quality: Exceptions to WFL Harsh: Mild Vocal Intensity: Mildly decreased Intelligibility: Intelligibility reduced Intelligibility Rating: (trach/vent) Breath Support: Inadequate for speech Dentition: Edentulous Consistencies Assessed: Yes Level 0 Thin Presentation: Straw Oral: Suspect premature spillage Pharyngeal: Cough- delayed Level 4 Pureed Presentation: Spoon Pharyngeal: Cough- delayed Cranial Nerve Screening CN V (trigeminal): Reduced mandibular movements CN VII (facial): Other (Comment) CN X (vagus): Other (Comment) CN XII (hypoglossal): Reduced tongue movements Pain Assessment Pain Assessment: No/denies pain Plan Diagnosis Code Swallowing: R13.12 Dysphagia, oropharyngeal phase Speech Therapy Care Plan Speech Therapy Care Plan (Active) Template: ST - Dysphagia Problem: Swallowing Dates: Start: 11/10/23 Disciplines: ITALIAN TUTOR Goal: LTG: Patient will maintain adequate nutrition/ hydration with optimum safety and efficiency of swallowing function of oral intake without overt signs/symptoms of aspiration for the highest appropriate diet level Dates: Start: 11/10/23 Expected End: 12/08/23 Disciplines: ITALIAN TUTOR Goal: STG: Patient will tolerate therapeutic feeding trials of advanced textures with 90% accuracy with minimal cueing Dates: Start: 11/10/23 Expected End: 12/08/23 Disciplines: ITALIAN TUTOR Speech Therapy Care Plan (Resolved) There are no resolved problems. Principal Problem: Fall Active Problems: Infected prosthetic mesh of abdominal wall (CMS-HCC) Surgical wound present Abdominal wall skin ulcer, with fat layer exposed ([facility]) [facility] 11-10-2023 Plan of care note Problem: Alternate Airway Goal: Tracheotomy/laryngectomy will be maintained safely Description: INTERVENTIONS 1. Keep resuscitation bag, mask, oxygen connection tubing, and extra tracheostomy at bedside; accompanying patient at all times 2. Obturator in plastic bag, readily available at bedside 3. Assess trach site 4. Utilize trach securing device and change as needed per policy 5. Support tubing to avoid pressure from drag of tubing 6. Provide trach care at least every 8 hrs and as needed 7. Change tracheostomy/inner cannula per policy as needed Outcome: Progressing Note: Evaluation of progress towards goal: secure 2Respiratory Therapy Clinical Practice Guidelines Consult Clinical Practice Guidelines Ordered Consult Assessment: Consult, Broncho-pulmonary hygiene, Bronchodilator Broncho-pulmonary Hygiene Indications: Retained secretions or difficulty with clearance Broncho-pulmonary Hygiene Total: 1 Bronchodilator Indications: Bronchospasm/wheezing Bronchodilator Total: 1 Vital Signs Pulse: 105 Heart Rate Source: Monitor Resp: 22 SpO2: 98 % O2 Device: Trach In-situ FiO2 (%): 40 % EtCO2 (mmHg): 33 mmHg ETCO2 Alarm - High: 50 ETCO2 Alarm - Low: 20 Patient Position: Semi-fowlers Respiratory Assessment Assessment Type: Subsequent assessment Level of Consciousness: Alert, Responds to Voice Respiratory Pattern: Regular Chest Assessment: Chest expansion symmetrical Bilateral Breath Sounds: Diminished Suctioning Suction: (refused) Readings Vt (observed, mL): 0.3 mL Avea Vt Mandatory Exp (L): 0.32 Minute Ventilation (L/min): 7 L/min PIP Observed (cm H2O): 35 cm H2O Total Rate : 20 MAP (cm H2O): 17 CM H20 EtCO2 (mmHg): 33 mmHg Plateau Pressure (cm H2O): 29 cm H2O I:E Readin:2 Static Compliance (L/cm H2O): 15.34 Dynamic Compliance (L/cm H2O): 12.8 L/cm H2O Patient Active Problem List Diagnosis Dyspnea NSTEMI (non-ST elevated myocardial infarction) ([facility]) Infected prosthetic mesh of abdominal wall ([facility]) Morbid obesity ([facility]) End stage renal disease ([facility]) Ventilator dependence ([facility]) Coronary artery disease Diabetes 1.5, 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 * (not in an exacerbation) Patients Current Level & Intervention: Level 1: No BP hygiene indicated. Continue suctioning every 4 hours [facility] 11-09-2023 Procedure note Associated Ord er(s): HEMODIALYSIS INPATIENT Patient tolerated 3.5 hour dialysis treatment fairly. Midodrine and Albumin given at beginning of treatment for hypotension and another dose given mid treatment for hypotension. Lowest BP 86/43. Patient asymptomatic. CVC ran reversed due to arterial pressure running high. Patient lines locked with alteplase at the end of treatment. Post weight- 152.8 kg Bed scales shows removal of 2.6 kg Post BP- 101/48 T [facility] 11-09-2023 Progress note Formatting of t his note is different from the original. Speech Therapy CANCEL - Deferred Spoke with RN. Hold BSSE d/t current status. Currently requiring mechanical ventilation and undergoing dialysis. [facility] 11-09-2023 Consult note Associated Order (s): CONSULT WOUND CARE SERVICES Images from the original note were not included. Wound Care Service Line - Consult Note Date of Admission: 11/07/2023 2:46 PM Reason for Consult: chronic abdominal wound with possible cellulitis PCP: JULIÁN CONTI MD Admission Chief Complaint: s/p fall, trauma History of Present Illness: Matthew Neal is a 58 y.o. former smoker female who presented to [facility] from [facility] initially and transferred to [facility] for trauma consult s/p fall out of bed while reaching for her phone that morning with c/o striking her leg/knees. Past Medical History includes but is not limited to anemia, CHF, Diabetes ?1.5 treated as type 1, morbid obesity, respiratory failure with tracheostomy and vent dependent, ESRD on HD. Wound Care consulted for chronic and surgical non healing wound to abdomen that started prior to this admission. Per chart review patient underwent umbilical hernia repair with mesh in 2004 (unable to find further details) and was seen at [facility] GS office by Dr Gunderson most recently on 11/01/23 for infected mesh at which time he sharply debridement exposed mesh from wound bed and recommended dakins wet to dry dressings. She does have a f/u with him on 12/06/23. She also appears to be following with [facility] ID service as an outpatient as well. Current wound care includes: removed moistened gauze and abd pad from site upon assessment. Patient has been managed by [facility] General surgery outpatient office - Dr Gunderson as mentioned. No mention of plan for any surgical procedures per notes reviewed. She is currently residing at [facility] facility Tobacco Use: Low Risk (11/07/2023) Patient History Smoking Tobacco Use: Never Smokeless Tobacco Use: Never Passive Exposure: Not on file Recent Concern: Tobacco Use - Medium Risk (11/01/2023) Received from [facility] Patient History Smoking Tobacco Use: Former Smokeless Tobacco Use: Never Passive Exposure: Not on file PMH: Past Medical History: Diagnosis Date Anemia CHF (congestive heart failure) ([facility]) Diabetes ([facility] Morbid obesity ([facility]) NSTEMI (non-ST elevated myocardial infarction) ([facility]) Respiratory failure ([facility]) PSH: Past Surgical History: Procedure Laterality Date OPEN REDUCTION INTERNAL FIXATION FEMUR Left 11/08/2023 Performed by Jagdish Vasquez MD at [facility] Allergies: Allergies Allergen Reactions Iodinated Contrast Media Shortness Of Breath Morphine Shortness Of Breath Fentanyl Patient gets burning and abdominal cramps Gadolinium-Containing Contrast Media Zosyn [Piperacillin-Tazobactam] Home Meds: Medications Prior to Admission Medication Sig Dispense Refill Last Dose acetaminophen (TYLENOL) 325 mg tablet Take 2 tablets (650 mg total) by mouth every 6 (six) hours as needed for fever. Other - as prescribed albuterol (PROVENTIL,VENTOLIN) 2.5 mg /3 mL (0.083 %) nebulizer solution Inhale 3 mL (2.5 mg total) by nebulization every 4 (four) hours as needed for shortness of breath. Other - as prescribed ALPRAZolam (XANAX) 0.5 mg tablet Take 1 tablet (0.5 mg total) by mouth in the morning and 1 tablet (0.5 mg total) before bedtime. ALPRAZolam (XANAX) 1 mg tablet Take 1 tablet (1 mg total) by mouth in the morning and 1 tablet (1 mg total) before bedtime. Indications: anxious. aspirin 81 mg Take 1 tablet (81 mg total) by mouth in the morning. atorvastatin (LIPITOR) 20 mg tablet Take 1 tablet (20 mg total) by mouth in the morning. bumetanide (BUMEX) 1 mg tablet Take 2 tablets (2 mg total) by mouth daily. busPIRone (BUSPAR) 10 mg tablet Take 1 tablet (10 mg total) by mouth in the morning and 1 tablet (10 mg total) before bedtime. busPIRone (BUSPAR) 7.5 mg tablet Take 1 tablet (7.5 mg total) by mouth in the morning. cholecalciferol (VITAMIN D3) 1,000 units tablet Take 2 tablets (2,000 Units total) by mouth in the morning. Indications: low vitamin D levels. cyclobenzaprine (FLEXERIL) 5 mg tablet Take 2 tablets (10 mg total) by mouth every 6 (six) hours. Other - as prescribed dicyclomine (BENTYL) 10 mg capsule Take 1 capsule (10 mg total) by mouth 3 (three) times a day. epoetin beta, methoxy peg (MIRCERA) 75 mcg/0.3 mL syringe Inject 75 mcg as directed every 14 (fourteen) days. FLUoxetine (PROzac) 20 mg capsule Take 30 mg by mouth in the morning. folic acid-B ykgf-Z-cypxf-zinc (DIALYVITE) 3-70-15 mg-mcg-mg tablet Take 1 tablet by mouth in the evening. gabapentin (NEURONTIN) 100 mg capsule Take 1 capsule (100 mg total) by mouth 3 (three) times a day. insulin glargine (LANTUS, BASAGLAR) 100 unit/mL (3 mL) insulin pen Inject 20 Units under the skin in the morning and 20 Units in the evening. Inject before meals. (Patient taking differently: Inject 32 Units under the skin in the morning and 32 Units in the evening. Inject before meals.) 15 mL 12 insulin lispro (HumaLOG) 100 unit/mL insulin pen [...] mg/dL, give 10 units. 15 mL 12 insulin lispro (HumaLOG) 100 unit/mL insulin pen Inject 2-8 Units under the skin nightly. Bedtime hyperglycemia dosing. For glucose 201-250 mg/dL, give 2 units. For glucose 251-300 mg/dL, give 4 units. For glucose 301-350 mg/dL, give 6 units. For glucose 351-400 mg/dL, give 8 units. 15 mL 12 lacosamide (VIMPAT) 100 mg tablet Take 0.5 tablets (50 mg total) by mouth in the morning and 0.5 tablets (50 mg total) before bedtime. levETIRAcetam (KEPPRA) 1000 mg tablet Take 0.5 tablets (500 mg total) by mouth 3 (three) times a day. levothyroxine (SYNTHROID, LEVOTHROID) 175 MCG tablet Take 1 tablet (175 mcg total) by mouth in the morning. midodrine (PROAMATINE) 10 mg tablet Take 1 tablet (10 mg total) by mouth as needed (Hemodialysis - PRN at initiation and midway through dialysis session). 90 tablet 3 Other - as prescribed naloxone (NARCAN) 4 mg/actuation spray,non-aerosol nasal spray Administer 1 spray (4 mg total) into alternating nostrils as needed for opioid reversal. 3 each 3 Other - as prescribed ondansetron (ZOFRAN) 4 mg tablet Take 1 tablet (4 mg total) by mouth every 6 (six) hours as needed for nausea or vomiting. Other - as prescribed oxycodone HCl (OXYCODONE ORAL) Take 5 mg by mouth every 6 (six) hours as needed. Other - as prescribed pantoprazole (PROTONIX) 40 mg EC tablet Take 1 tablet (40 mg total) by mouth in the morning. polyethylene glycol (GLYCOLAX) 17 gram/dose powder Take 17 g by mouth in the morning. potassium chloride (KLOR-CON M 20) 20 MEQ CR tablet Take 1 tablet (20 mEq total) by mouth in the morning. risperiDONE (RisperDAL) 1 mg tablet Take 1 tablet (1 mg total) by mouth in the morning. sennosides-docusate sodium (SENOKOT-S) 8.6-50 mg Take 1 tablet by mouth every 12 (twelve) hours as needed for constipation. (Patient taking differently: Take 1 tablet by mouth once daily at bedtime.) 60 tablet 3 sevelamer (RENVELA) 800 mg tablet Take 4 tablets (3,200 mg total) by mouth in the morning and 4 tablets (3,200 mg total) at noon and 4 tablets (3,200 mg total) in the evening. Take with meals. albuterol (ACCUNEB) 0.63 mg/3 mL nebulizer solution Inhale 3 mL (0.63 mg total) by nebulization every 6 (six) hours as needed for wheezing. predniSONE (DELTASONE) 20 mg tablet Take 1 tablet (20 mg total) by mouth in the morning. (Patient not taking: Reported on 11/07/2023) Unknown Social History: Social History Socioeconomic History Marital status: Spouse name: Not on file Number of children: Not on file Years of education: Not on file Highest education level: Not on file Occupational History Not on file Tobacco Use Smoking status: Never Smokeless tobacco: Never Vaping Use Vaping status: Never Used Substance and Sexual Activity Alcohol use: Not Currently Drug use: Never Sexual activity: Defer Other Topics Concern Caffeine Use Yes Social History Narrative Not on file Social Determinants of Health Financial Resource Strain: Not on file Food Insecurity: No Food Insecurity (11/07/2023) Hunger Screening Food Insecurity - Worry: Never True Food Insecurity - Inability: Never True Transportation Needs: No Transportation Needs (11/07/2023) PRAPARE - Transportation Lack of Transportation (Medical): No Lack of Transportation (Non-Medical): No Physical Activity: Inactive (09/14/2023) Received from [facility] Exercise Vital Sign Days of Exercise per Week: 0 days Minutes of Exercise per Session: 0 min Stress: No Stress Concern Present (09/14/2023) Received from [facility] [employer] [place] [employer] - Occupational Stress Questionnaire Feeling of Stress : Not at all Social Connections: Not on file Interpersonal Safety: Not At Risk (11/07/2023) Humiliation, Afraid, Rape, and Kick questionnaire Fear of Current or Ex-Partner: No Emotionally Abused: No Physically Abused: No Sexually Abused: No Housing Instability: Low Risk (11/07/2023) Housing Instability Housing Instability: No Family History: History reviewed. No pertinent family history. I have personal reviewed past medical history including surgeries, social history, and family history. I have also reviewed allergies and home medications. They are documented in this note to their detail, and if there are none noted, they will further indicate no pertinent history. Review of Systems Review of Systems Unable to perform ROS: Other (on ventilator via tracheostomy, mouths a few words) Physical Exam Vital Signs: BP 104/68 Pulse 116 Temp 37.3 C (99.1 F) (Oral) Resp 19 Ht 152.4 cm (5') Wt (!) 154.1 kg (339 lb 11.7 oz) SpO2 97% BMI 66.35 kg/m Physical Exam Vitals reviewed. Constitutional: General: She is sleeping. She is not in acute distress. Appearance: She is morbidly obese. She is ill-appearing. Interventions: She is intubated. HENT: Head: Normocephalic. Cardiovascular: Rate and Rhythm: Tachycardia present. Pulmonary: Effort: Pulmonary effort is normal. No respiratory distress. She is intubated. Comments: On ventilator per tracheostomy Abdominal: General: There is distension. Tenderness: There is no abdominal tenderness. Skin: General: Skin is warm and dry. Capillary Refill: Capillary refill takes 2 to 3 seconds. Findings: Wound (abdominal wound - see wound assessment below) present. Neurological: Mental Status: She is easily aroused. Mental status is at baseline. Motor: Weakness present. Gait: Gait abnormal. Psychiatric: Behavior: Behavior is cooperative. Labs Reviewed: Results from last 7 days Lab Units 11/09/23 0850 11/09/23 0240 11/08/23 17311/08/23 03111/07/23 1824 11/07/23 1510 WBC X10E9/L -- 6.6 10.2 7.1 6.3 7.4 HEMOGLOBIN g/dL 8.7* 8.7* 9.7* 10.6* 10.9* 11.5* HEMATOCRIT % 27.0* 27.4* 30.7* 32.7* 33.2* 34.4* PLATELETS X10E9/L -- 92* 101* 94* 91* 90* Results from last 7 days Lab Units 11/09/23 1051 11/09/23 0542 11/09/23 0240 11/08/23 2256 11/08/23 1742 11/08/23172911/08/23 0525 11/08/2330911/07/23 23211/07/23 18211/07/23 1510 POTASSIUM mmol/L -- -- 4.9 -- -- 4.9 -- 4.5 -- 5.2* 5.7* CO2 mmol/L -- -- 20* -- -- 20* -- 22 -- 22 22 BUN mg/dL -- -- 53* -- -- 46* -- 44* -- 69* 74* CREATININE mg/dL -- -- 5.02* -- -- 4.66* -- 4.31* -- 5.26* 5.85* BEDSIDE GLUCOSE mg/dL 120* 158* -- 159* 205* -- < > -- < > -- -- GLUCOSE mg/dL -- -- 154* -- -- 188* -- 189* -- 219* 218* < > = values in this interval not displayed. Results from last 7 days Lab Units 11/07/23 1510 11/07/23 1115 INR 1.0 1.0 PROTIME sec 11.7 12.2 APTT sec 33 34 Pathology/Cytology Results No results found for the last 168 hours. Microbiology Results Procedure Component Value Units Date/Time Urine culture [[id number]] (Abnormal) (Susceptibility) Collected: 11/07/23 1227 Specimen: Urine from Restrepo Catheter Specimen Updated: 11/09/23 0847 Culture >100,000 ORGANISMS/mL ESCHERICHIA COLI 50,000 to 100,000 ORGANISMS/mL NORMAL URO GENITAL NADINE Susceptibility Escherichia Coli JASON METHOD AMP/SULBACTAM >=32/16 Resistant Ampicillin >=32 Resistant Cefazolin >=64 Resistant Ceftriaxone >=64 Resistant Ciprofloxacin >=4 Resistant Ertapenem <=0.12 Susceptible [1] ESBL Test POSITIVE [2] Gentamicin >=16 Resistant Levofloxacin >=8 Resistant Nitrofurantoin 128 Resistant PIPERACIL/TAZOBACTAM 16 SUSCEPTIBLE (DOSE DEPENDENT) Tobramycin >=16 Resistant TRIMETH/SULFAMETHOXAZOLE >=16/304 Resistant [1] CLIA ID [id number] [2] Organism produces an extended spectrum beta lactamase (ESBL). It may be clinically resistant to therapy with penicillins, cephalosporins, or aztreonam. Contact laboratory if further information is required. Studies Reviewed: X-ray femur left 2+ views Result Date: 11/08/2023 XR FEMUR LT 2+ VIEWS INDICATION: Fracture, pain FINDINGS: Intraoperative fluoroscopy for ORIF of the left femur. No radiologist present during the examination. Reference Air Kerma = 6 mGy Fluoroscopy time: 54 seconds Saved images: 1 IMPRESSION: Intraoperative fluoroscopy provided as above. See operative report for additional details. Finalized by Bull Herr on 11/08/2023 4:57 PM X-ray abdomen NG Tube placement 1 view Result Date: 11/08/2023 XR ABD NG TUBE PLACEMENT 1 VIEW Clinical history:ng verification enteric catheter placement and verification Comparison: 11/07/2023 Findings: Evaluation is compromised by diminished penetration related to body habitus and portable technique. Enteric catheter tip appears to extend to the level of the proximal to mid stomach. Impression: Enteric catheter extends to the level of the proximal to mid stomach. Finalized by Mirtha Renteria MD on 11/08/2023 5:12 AM X-ray chest 1 view Result Date: 11/07/2023 Single view chest History:chronic trach Difficulty breathing, shortness of breath Comparison: 11/07/2023 Findings: Single portable view of the chest. Stable tracheostomy. Enteric other signs of the stomach. Stable right jugular catheter. Mild vascular congestion edema. Stable cardiomediastinal silhouette. Impression: Mild vascular congestion and interstitial edema. Finalized by Mirtha Renteria MD on 11/07/2023 5:54 PM X-ray abdomen ap 1 view Result Date: 11/07/2023 CLINICAL HISTORY: NG tube placement Comparison: None Views: 1 view FINDINGS: * NG tube courses well below the hemidiaphragm and likely within the body of stomach. IMPRESSION: * As above. Finalized by Margarito Bravo MD on 11/07/2023 5:[address] knee left without contrast Result Date: 11/07/2023 Clinical history: Knee trauma. Dislocation. CT left knee without contrast: 11/07/2023 COMPARISON: None PROCEDURE: Axial images were obtained through the knee. Coronal and sagittal reconstructions were performed. All CT scans at this facility use dose modulation, iterative reconstruction, and/or weight based dosing when appropriate to reduce radiation dose to as low as reasonably achievable FINDINGS: There is a comminuted distal femoral fracture which is difficult to characterize due to bone demineralization. This has a transverse component proximal to the condylar level with some impaction. Sagittal plane components appear to extend into the intercondylar region without definite disruption of articular surfaces at the medial and lateral condylar region. Soft tissue swelling is present around the knee with a large suprapatellar effusion/hemarthrosis. There is no patellar injury. The tibial plateau and proximal fibula appear within normal limits with generalized bone demineralization. There is edema within subcutaneous tissues throughout the knee. IMPRESSION: Comminuted distal femoral fracture with extension into the intercondylar portion of the knee. Finalized by Artur Pardo MD on 11/07/2023 4:[address] chest without contrast Result Date: 11/07/2023 Clinical history:Blunt chest trauma. CT chest without contrast:11/07/2023 Comparison: 03/21/2021 Procedure: Axial images were obtained through the chest without intravenous contrast. Coronal and sagittal reconstructions were performed. All CT scans at this facility use dose modulation, iterative reconstruction, and/or weight based dosing when appropriate to reduce radiation dose to as low as reasonably achievable. Findings: Evaluation is inhibited by body habitus. Patchy alveolar opacity and volume loss are present in the left lower lobe, the left upper lobe and the paramediastinal right lower lobe. There is no large pleural effusion or pneumothorax. The heart is enlarged with tracheostomy and central line in place. No acute mediastinal abnormality is present. There is no acute osseous abnormality within the thorax. IMPRESSION: Pulmonary infiltrates may reflect areas of atelectasis or pneumonia. Follow-up to resolution would be required to exclude an underlying abnormality. No definite posttraumatic abnormality within the chest. Finalized by Artur Pardo MD on 11/07/2023 4:[address] abdomen and pelvis without contrast Result Date: 11/07/2023 CLINICAL INFORMATION: Abdominal trauma, blunt. Pain TECHNIQUE: CT Abdomen and Pelvis without intravenous contrast. All CT scans at this facility use dose modulation, iterative reconstruction, and/or weight based dosing when appropriate to reduce radiation dose to as low as reasonably achievable. COMPARISON: 10/25/2023. 01/20/2021 FINDINGS: Left lower lobe consolidation and atelectasis persists. There is no pneumoperitoneum on the visualized portions of the abdomen. Much of the left hemiabdomen including the anterior abdominal wall is not included on this imaging volume due to body habitus. Changes of cholecystectomy again noted. Given limitations of a noncontrast enhanced exam the liver, spleen, right adrenal gland and pancreas appear unremarkable. Limbs of the left adrenal gland remains somewhat thickened particularly the medial limb, however this is unchanged from prior exam dating back to 01/20/2021 favoring a nonaggressive etiology. Renal collecting systems and ureters are not dilated. Dense atherosclerotic aortoiliac and visceral vascular calcifications again seen. Gas-filled yet nondilated colon again noted in the upper abdomen with what appears to be descending colostomy, only partially imaged. Soft tissue stranding throughout the lower anterior abdominal wall and pelvis again noted suggesting cellulitis. There is no intraperitoneal nor retroperitoneal nor anterior abdominal wall drainable fluid collection/abscess. Bilobed shaped left adnexal fluid attenuation structure has been present since at least 01/20/2021 and likely represents a large ovarian cyst. No definite dilated loops of bowel to suggest bowel obstruction. IMPRESSION: 1. Redemonstration of extensive soft tissue stranding throughout the intra-abdominal wall/pelvis most consistent with cellulitis. No fluid collection/abscess. 2. Persistent nonspecific left lower lobe consolidation and atelectasis. 3. Persistent left adnexal cystic lesion. This has been present since at least 2020. Nonaggressive etiology, however it is still nonspecific. 4. No abdominal nor pelvic fluid collections. Finalized by Wander De La Cruz MD on 11/07/2023 4:15 PM X-ray knee left 3 views Result Date: 11/07/2023 3 VIEWS LEFT KNEE HISTORY: Fracture, pain COMPARISON: None IMPRESSION: * Acute comminuted distal left femur fracture with mild impaction and slight lateral displacement of the main distal fracture fragment measuring 1.7 cm. * Diffuse osteopenia. Finalized by Bart Way MD on 11/07/2023 11:58 AM X-ray chest 1 view Result Date: 11/07/2023 CHEST 1 VIEW HISTORY: Dialysis COMPARISON: 07/17/2023 IMPRESSION: * Stable tracheostomy tube and right-sided dialysis catheter. * Persistent extensive opacities throughout the left hemithorax with volume loss, similar to previous study. Right lung is clear. * Unable to evaluate cardiomediastinal silhouette due to significant abnormalities in the left hemithorax. Finalized by Bart Way MD on 11/07/2023 11:57 AM X-ray femur left 2+ views Result Date: 11/07/2023 XR FEMUR LT 2+ VIEWS HISTORY: distal femur fracture COMPARISON: None available. IMPRESSION: Mildly comminuted fracture distal femoral metadiaphysis, with one third shaft's width lateral displacement of the distal fracture fragment and at least 1.6 cm of override. Osteopenia limits evaluation for intra-articular extension, CT could help further clarify. 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 After cleansing: Gently pack with kerlix moist to moist 0.125% dakin's solution, ensure packing into undermining from 12-6 o'clock, leave a tail for easy removal and cover with ABD pad and medfix tape. Repeat twice daily and prn. Offloading/Skin Care/Edema Management: - continue specialty isolibrium/icu bed ADA/pressure redistribution - turn and reposition minimally every 2 hours - pad and protect bony prominences - moisturize dry skin, do not massage vigorously - elevate bilateral lower extremity/ies and float heel(s) on pillows or offloading true zenon boots - elevate upper extremities on pillows Antibiotics: Vancomycin Studies/Testing: reviewed as noted above - CT scan with extensive soft tissue stranding consistent with cellulitis, no abscess or fluid collection noted. Medical Management: per primary service Wound care will continue to follow while inpatient, orders written for bedside RN's to complete daily skin assessment and wound care orders daily and/or as written. May discharge from wound care perspective when medically stable as advised by other services. Follow up: as scheduled with Dr Pa URIBE and [facility] as an outpatient. As well as with other services as advised upon discharge. Thank you for allowing us to participate in the care of this patient. Please feel free to call us with any questions or concerns. ROBERT Man 11/09/23 [facility] Wound and Vascular Service Line Tue-Tue 8a-3p [phone] - pager M- 8a-3p Secure Chat preferred & fastest response time Needs outside these hours please contact the reciprocating department: general surgery, vascular surgery, ortho or podiatry. Thank you! This note was created with the assistance of a speech-recognition program. Although the intention is to generate a document that accurately reflects the content of the visit, no guarantees can be provided that every mistake/misinterpretation has been identified and corrected by editing. ROBERT Man 11/09/23 1137 [facility] 11-09-2023 Consult note Associated Order (s): CONSULT WOUND CARE SERVICES Images from the original note were not included. Wound Care Service Line - Consult Note Date of Admission: 11/07/2023 2:46 PM Reason for Consult: chronic abdominal wound with possible cellulitis PCP: JULIÁN CONTI MD Admission Chief Complaint: s/p fall, trauma History of Present Illness: Matthew Neal is a 58 y.o. former smoker female who presented to [facility] from [facility] initially and transferred to [facility] for trauma consult s/p fall out of bed while reaching for her phone that morning with c/o striking her leg/knees. Past Medical History includes but is not limited to anemia, CHF, Diabetes ?1.5 treated as type 1, morbid obesity, respiratory failure with tracheostomy and vent dependent, ESRD on HD. Wound Care consulted for chronic and surgical non healing wound to abdomen that started prior to this admission. Per chart review patient underwent umbilical hernia repair with mesh in 2004 (unable to find further details) and was seen at [facility] office by Dr Gunderson most recently on 11/01/23 for infected mesh at which time he sharply debridement exposed mesh from wound bed and recommended dakins wet to dry dressings. She does have a f/u with him on 12/06/23. She also appears to be following with [facility] service as an outpatient as well. Current wound care includes: removed moistened gauze and abd pad from site upon assessment. Patient has been managed by [facility] General surgery outpatient office - Dr Gunderson as mentioned. No mention of plan for any surgical procedures per notes reviewed. She is currently residing at [facility] facility Tobacco Use: Low Risk (11/07/2023) Patient History Smoking Tobacco Use: Never Smokeless Tobacco Use: Never Passive Exposure: Not on file Recent Concern: Tobacco Use - Medium Risk (11/01/2023) Received from [facility] Patient History Smoking Tobacco Use: Former Smokeless Tobacco Use: Never Passive Exposure: Not on file PMH: Past Medical History: Diagnosis Date Anemia CHF (congestive heart failure) ([facility]) Diabetes ([facility]) Morbid obesity ([facility]) NSTEMI (non-ST elevated myocardial infarction) ([facility]) Respiratory failure ([facility]) PSH: Past Surgical History: Procedure Laterality Date OPEN REDUCTION INTERNAL FIXATION FEMUR Left 11/08/2023 Performed by Jagdish Vasquez MD at [facility] Allergies: Allergies Allergen Reactions Iodinated Contrast Media Shortness Of Breath Morphine Shortness Of Breath Fentanyl Patient gets burning and abdominal cramps Gadolinium-Containing Contrast Media Zosyn [Piperacillin-Tazobactam] Home Meds: Medications Prior to Admission Medication Sig Dispense Refill Last Dose acetaminophen (TYLENOL) 325 mg tablet Take 2 tablets (650 mg total) by mouth every 6 (six) hours as needed for fever. Other - as prescribed albuterol (PROVENTIL,VENTOLIN) 2.5 mg /3 mL (0.083 %) nebulizer solution Inhale 3 mL (2.5 mg total) by nebulization every 4 (four) hours as needed for shortness of breath. Other - as prescribed ALPRAZolam (XANAX) 0.5 mg tablet Take 1 tablet (0.5 mg total) by mouth in the morning and 1 tablet (0.5 mg total) before bedtime. ALPRAZolam (XANAX) 1 mg tablet Take 1 tablet (1 mg total) by mouth in the morning and 1 tablet (1 mg total) before bedtime. Indications: anxious. aspirin 81 mg Take 1 tablet (81 mg total) by mouth in the morning. atorvastatin (LIPITOR) 20 mg tablet Take 1 tablet (20 mg total) by mouth in the morning. bumetanide (BUMEX) 1 mg tablet Take 2 tablets (2 mg total) by mouth daily. busPIRone (BUSPAR) 10 mg tablet Take 1 tablet (10 mg total) by mouth in the morning and 1 tablet (10 mg total) before bedtime. busPIRone (BUSPAR) 7.5 mg tablet Take 1 tablet (7.5 mg total) by mouth in the morning. cholecalciferol (VITAMIN D3) 1,000 units tablet Take 2 tablets (2,000 Units total) by mouth in the morning. Indications: low vitamin D levels. cyclobenzaprine (FLEXERIL) 5 mg tablet Take 2 tablets (10 mg total) by mouth every 6 (six) hours. Other - as prescribed dicyclomine (BENTYL) 10 mg capsule Take 1 capsule (10 mg total) by mouth 3 (three) times a day. epoetin beta, methoxy peg (MIRCERA) 75 mcg/0.3 mL syringe Inject 75 mcg as directed every 14 (fourteen) days. FLUoxetine (PROzac) 20 mg capsule Take 30 mg by mouth in the morning. folic acid-B lzet-F-jlivs-zinc (DIALYVITE) 3-70-15 mg-mcg-mg tablet Take 1 tablet by mouth in the evening. gabapentin (NEURONTIN) 100 mg capsule Take 1 capsule (100 mg total) by mouth 3 (three) times a day. insulin glargine (LANTUS, BASAGLAR) 100 unit/mL (3 mL) insulin pen Inject 20 Units under the skin in the morning and 20 Units in the evening. Inject before meals. (Patient taking differently: Inject 32 Units under the skin in the morning and 32 Units in the evening. Inject before meals.) 15 mL 12 insulin lispro (HumaLOG) 100 unit/mL insulin pen [...] mg/dL, give 10 units. 15 mL 12 insulin lispro (HumaLOG) 100 unit/mL insulin pen Inject 2-8 Units under the skin nightly. Bedtime hyperglycemia dosing. For glucose 201-250 mg/dL, give 2 units. For glucose 251-300 mg/dL, give 4 units. For glucose 301-350 mg/dL, give 6 units. For glucose 351-400 mg/dL, give 8 units. 15 mL 12 lacosamide (VIMPAT) 100 mg tablet Take 0.5 tablets (50 mg total) by mouth in the morning and 0.5 tablets (50 mg total) before bedtime. levETIRAcetam (KEPPRA) 1000 mg tablet Take 0.5 tablets (500 mg total) by mouth 3 (three) times a day. levothyroxine (SYNTHROID, LEVOTHROID) 175 MCG tablet Take 1 tablet (175 mcg total) by mouth in the morning. midodrine (PROAMATINE) 10 mg tablet Take 1 tablet (10 mg total) by mouth as needed (Hemodialysis - PRN at initiation and midway through dialysis session). 90 tablet 3 Other - as prescribed naloxone (NARCAN) 4 mg/actuation spray,non-aerosol nasal spray Administer 1 spray (4 mg total) into alternating nostrils as needed for opioid reversal. 3 each 3 Other - as prescribed ondansetron (ZOFRAN) 4 mg tablet Take 1 tablet (4 mg total) by mouth every 6 (six) hours as needed for nausea or vomiting. Other - as prescribed oxycodone HCl (OXYCODONE ORAL) Take 5 mg by mouth every 6 (six) hours as needed. Other - as prescribed pantoprazole (PROTONIX) 40 mg EC tablet Take 1 tablet (40 mg total) by mouth in the morning. polyethylene glycol (GLYCOLAX) 17 gram/dose powder Take 17 g by mouth in the morning. potassium chloride (KLOR-CON M 20) 20 MEQ CR tablet Take 1 tablet (20 mEq total) by mouth in the morning. risperiDONE (RisperDAL) 1 mg tablet Take 1 tablet (1 mg total) by mouth in the morning. sennosides-docusate sodium (SENOKOT-S) 8.6-50 mg Take 1 tablet by mouth every 12 (twelve) hours as needed for constipation. (Patient taking differently: Take 1 tablet by mouth once daily at bedtime.) 60 tablet 3 sevelamer (RENVELA) 800 mg tablet Take 4 tablets (3,200 mg total) by mouth in the morning and 4 tablets (3,200 mg total) at noon and 4 tablets (3,200 mg total) in the evening. Take with meals. albuterol (ACCUNEB) 0.63 mg/3 mL nebulizer solution Inhale 3 mL (0.63 mg total) by nebulization every 6 (six) hours as needed for wheezing. predniSONE (DELTASONE) 20 mg tablet Take 1 tablet (20 mg total) by mouth in the morning. (Patient not taking: Reported on 11/07/2023) Unknown Social History: Social History Socioeconomic History Marital status: Spouse name: Not on file Number of children: Not on file Years of education: Not on file Highest education level: Not on file Occupational History Not on file Tobacco Use Smoking status: Never Smokeless tobacco: Never Vaping Use Vaping status: Never Used Substance and Sexual Activity Alcohol use: Not Currently Drug use: Never Sexual activity: Defer Other Topics Concern Caffeine Use Yes Social History Narrative Not on file Social Determinants of Health Financial Resource Strain: Not on file Food Insecurity: No Food Insecurity (11/07/2023) Hunger Screening Food Insecurity - Worry: Never True Food Insecurity - Inability: Never True Transportation Needs: No Transportation Needs (11/07/2023) PRAPARE - Transportation Lack of Transportation (Medical): No Lack of Transportation (Non-Medical): No Physical Activity: Inactive (09/14/2023) Received from [facility] Exercise Vital Sign Days of Exercise per Week: 0 days Minutes of Exercise per Session: 0 min Stress: No Stress Concern Present (09/14/2023) Received from [facility] [employer] [place] [employer] - Occupational Stress Questionnaire Feeling of Stress : Not at all Social Connections: Not on file Interpersonal Safety: Not At Risk (11/07/2023) Humiliation, Afraid, Rape, and Kick questionnaire Fear of Current or Ex-Partner: No Emotionally Abused: No Physically Abused: No Sexually Abused: No Housing Instability: Low Risk (11/07/2023) Housing Instability Housing Instability: No Family History: History reviewed. No pertinent family history. I have personal reviewed past medical history including surgeries, social history, and family history. I have also reviewed allergies and home medications. They are documented in this note to their detail, and if there are none noted, they will further indicate no pertinent history. Review of Systems Review of Systems Unable to perform ROS: Other (on ventilator via tracheostomy, mouths a few words) Physical Exam Vital Signs: BP 104/68 Pulse 116 Temp 37.3 C (99.1 F) (Oral) Resp 19 Ht 152.4 cm (5') Wt (!) 154.1 kg (339 lb 11.7 oz) SpO2 97% BMI 66.35 kg/m Physical Exam Vitals reviewed. Constitutional: General: She is sleeping. She is not in acute distress. Appearance: She is morbidly obese. She is ill-appearing. Interventions: She is intubated. HENT: Head: Normocephalic. Cardiovascular: Rate and Rhythm: Tachycardia present. Pulmonary: Effort: Pulmonary effort is normal. No respiratory distress. She is intubated. Comments: On ventilator per tracheostomy Abdominal: General: There is distension. Tenderness: There is no abdominal tenderness. Skin: General: Skin is warm and dry. Capillary Refill: Capillary refill takes 2 to 3 seconds. Findings: Wound (abdominal wound - see wound assessment below) present. Neurological: Mental Status: She is easily aroused. Mental status is at baseline. Motor: Weakness present. Gait: Gait abnormal. Psychiatric: Behavior: Behavior is cooperative. Labs Reviewed: Results from last 7 days Lab Units 11/09/23 0850 11/09/23 0240 11/08/23 1730 11/08/23 0310 11/07/23 1824 11/07/23 1510 WBC X10E9/L -- 6.6 10.2 7.1 6.3 7.4 HEMOGLOBIN g/dL 8.7* 8.7* 9.7* 10.6* 10.9* 11.5* HEMATOCRIT % 27.0* 27.4* 30.7* 32.7* 33.2* 34.4* PLATELETS X10E9/L -- 92* 101* 94* 91* 90* Results from last 7 days Lab Units 11/09/23 1051 11/09/23 0542 11/09/23 0240 11/08/23 2256 11/08/23 1742 11/08/23 1730 11/08/23 0525 11/08/23 0310 11/07/23 2324 11/07/23 1824 11/07/23 1510 POTASSIUM mmol/L -- -- 4.9 -- -- 4.9 -- 4.5 -- 5.2* 5.7* CO2 mmol/L -- -- 20* -- -- 20* -- 22 -- 22 22 BUN mg/dL -- -- 53* -- -- 46* -- 44* -- 69* 74* CREATININE mg/dL -- -- 5.02* -- -- 4.66* -- 4.31* -- 5.26* 5.85* BEDSIDE GLUCOSE mg/dL 120* 158* -- 159* 205* -- < > -- < > -- -- GLUCOSE mg/dL -- -- 154* -- -- 188* -- 189* -- 219* 218* < > = values in this interval not displayed. Results from last 7 days Lab Units 11/07/23 1510 11/07/23 1115 INR 1.0 1.0 PROTIME sec 11.7 12.2 APTT sec 33 34 Pathology/Cytology Results No results found for the last 168 hours. Microbiology Results Procedure Component Value Units Date/Time Urine culture [[id number]] (Abnormal) (Susceptibility) Collected: 11/07/23 1227 Specimen: Urine from Restrepo Catheter Specimen Updated: 11/09/23 0847 Culture >100,000 ORGANISMS/mL ESCHERICHIA COLI 50,000 to 100,000 ORGANISMS/mL NORMAL URO GENITAL NADINE Susceptibility Escherichia Coli JASON METHOD AMP/SULBACTAM >=32/16 Resistant Ampicillin >=32 Resistant Cefazolin >=64 Resistant Ceftriaxone >=64 Resistant Ciprofloxacin >=4 Resistant Ertapenem <=0.12 Susceptible [1] ESBL Test POSITIVE [2] Gentamicin >=16 Resistant Levofloxacin >=8 Resistant Nitrofurantoin 128 Resistant PIPERACIL/TAZOBACTAM 16 SUSCEPTIBLE (DOSE DEPENDENT) Tobramycin >=16 Resistant TRIMETH/SULFAMETHOXAZOLE >=16/304 Resistant [1] CLIA ID [id number] [2] Organism produces an extended spectrum beta lactamase (ESBL). It may be clinically resistant to therapy with penicillins, cephalosporins, or aztreonam. Contact laboratory if further information is required. Studies Reviewed: X-ray femur left 2+ views Result Date: 11/08/2023 XR FEMUR LT 2+ VIEWS INDICATION: Fracture, pain FINDINGS: Intraoperative fluoroscopy for ORIF of the left femur. No radiologist present during the examination. Reference Air Kerma = 6 mGy Fluoroscopy time: 54 seconds Saved images: 1 IMPRESSION: Intraoperative fluoroscopy provided as above. See operative report for additional details. Finalized by Bull Herr on 11/08/2023 4:57 PM X-ray abdomen NG Tube placement 1 view Result Date: 11/08/2023 XR ABD NG TUBE PLACEMENT 1 VIEW Clinical history:ng verification enteric catheter placement and verification Comparison: 11/07/2023 Findings: Evaluation is compromised by diminished penetration related to body habitus and portable technique. Enteric catheter tip appears to extend to the level of the proximal to mid stomach. Impression: Enteric catheter extends to the level of the proximal to mid stomach. Finalized by Mirtha Renteria MD on 11/08/2023 5:12 AM X-ray chest 1 view Result Date: 11/07/2023 Single view chest History:chronic trach Difficulty breathing, shortness of breath Comparison: 11/07/2023 Findings: Single portable view of the chest. Stable tracheostomy. Enteric other signs of the stomach. Stable right jugular catheter. Mild vascular congestion edema. Stable cardiomediastinal silhouette. Impression: Mild vascular congestion and interstitial edema. Finalized by Mirtha Renteria MD on 11/07/2023 5:54 PM X-ray abdomen ap 1 view Result Date: 11/07/2023 CLINICAL HISTORY: NG tube placement Comparison: None Views: 1 view FINDINGS: * NG tube courses well below the hemidiaphragm and likely within the body of stomach. IMPRESSION: * As above. Finalized by Margarito Bravo MD on 11/07/2023 5:[address] knee left without contrast Result Date: 11/07/2023 Clinical history: Knee trauma. Dislocation. CT left knee without contrast: 11/07/2023 COMPARISON: None PROCEDURE: Axial images were obtained through the knee. Coronal and sagittal reconstructions were performed. All CT scans at this facility use dose modulation, iterative reconstruction, and/or weight based dosing when appropriate to reduce radiation dose to as low as reasonably achievable FINDINGS: There is a comminuted distal femoral fracture which is difficult to characterize due to bone demineralization. This has a transverse component proximal to the condylar level with some impaction. Sagittal plane components appear to extend into the intercondylar region without definite disruption of articular surfaces at the medial and lateral condylar region. Soft tissue swelling is present around the knee with a large suprapatellar effusion/hemarthrosis. There is no patellar injury. The tibial plateau and proximal fibula appear within normal limits with generalized bone demineralization. There is edema within subcutaneous tissues throughout the knee. IMPRESSION: Comminuted distal femoral fracture with extension into the intercondylar portion of the knee. Finalized by Artur Pardo MD on 11/07/2023 4:[address] chest without contrast Result Date: 11/07/2023 Clinical history:Blunt chest trauma. CT chest without contrast:11/07/2023 Comparison: 03/21/2021 Procedure: Axial images were obtained through the chest without intravenous contrast. Coronal and sagittal reconstructions were performed. All CT scans at this facility use dose modulation, iterative reconstruction, and/or weight based dosing when appropriate to reduce radiation dose to as low as reasonably achievable. Findings: Evaluation is inhibited by body habitus. Patchy alveolar opacity and volume loss are present in the left lower lobe, the left upper lobe and the paramediastinal right lower lobe. There is no large pleural effusion or pneumothorax. The heart is enlarged with tracheostomy and central line in place. No acute mediastinal abnormality is present. There is no acute osseous abnormality within the thorax. IMPRESSION: Pulmonary infiltrates may reflect areas of atelectasis or pneumonia. Follow-up to resolution would be required to exclude an underlying abnormality. No definite posttraumatic abnormality within the chest. Finalized by Artur Pardo MD on 11/07/2023 4:[address] abdomen and pelvis without contrast Result Date: 11/07/2023 CLINICAL INFORMATION: Abdominal trauma, blunt. Pain TECHNIQUE: CT Abdomen and Pelvis without intravenous contrast. All CT scans at this facility use dose modulation, iterative reconstruction, and/or weight based dosing when appropriate to reduce radiation dose to as low as reasonably achievable. COMPARISON: 10/25/2023. 01/20/2021 FINDINGS: Left lower lobe consolidation and atelectasis persists. There is no pneumoperitoneum on the visualized portions of the abdomen. Much of the left hemiabdomen including the anterior abdominal wall is not included on this imaging volume due to body habitus. Changes of cholecystectomy again noted. Given limitations of a noncontrast enhanced exam the liver, spleen, right adrenal gland and pancreas appear unremarkable. Limbs of the left adrenal gland remains somewhat thickened particularly the medial limb, however this is unchanged from prior exam dating back to 01/20/2021 favoring a nonaggressive etiology. Renal collecting systems and ureters are not dilated. Dense atherosclerotic aortoiliac and visceral vascular calcifications again seen. Gas-filled yet nondilated colon again noted in the upper abdomen with what appears to be descending colostomy, only partially imaged. Soft tissue stranding throughout the lower anterior abdominal wall and pelvis again noted suggesting cellulitis. There is no intraperitoneal nor retroperitoneal nor anterior abdominal wall drainable fluid collection/abscess. Bilobed shaped left adnexal fluid attenuation structure has been present since at least 01/20/2021 and likely represents a large ovarian cyst. No definite dilated loops of bowel to suggest bowel obstruction. IMPRESSION: 1. Redemonstration of extensive soft tissue stranding throughout the intra-abdominal wall/pelvis most consistent with cellulitis. No fluid collection/abscess. 2. Persistent nonspecific left lower lobe consolidation and atelectasis. 3. Persistent left adnexal cystic lesion. This has been present since at least 2020. Nonaggressive etiology, however it is still nonspecific. 4. No abdominal nor pelvic fluid collections. Finalized by Wander De La Cruz MD on 11/07/2023 4:15 PM X-ray knee left 3 views Result Date: 11/07/2023 3 VIEWS LEFT KNEE HISTORY: Fracture, pain COMPARISON: None IMPRESSION: * Acute comminuted distal left femur fracture with mild impaction and slight lateral displacement of the main distal fracture fragment measuring 1.7 cm. * Diffuse osteopenia. Finalized by Bart Way MD on 11/07/2023 11:58 AM X-ray chest 1 view Result Date: 11/07/2023 CHEST 1 VIEW HISTORY: Dialysis COMPARISON: 07/17/2023 IMPRESSION: * Stable tracheostomy tube and right-sided dialysis catheter. * Persistent extensive opacities throughout the left hemithorax with volume loss, similar to previous study. Right lung is clear. * Unable to evaluate cardiomediastinal silhouette due to significant abnormalities in the left hemithorax. Finalized by Bart Way MD on 11/07/2023 11:57 AM X-ray femur left 2+ views Result Date: 11/07/2023 XR FEMUR LT 2+ VIEWS HISTORY: distal femur fracture COMPARISON: None available. IMPRESSION: Mildly comminuted fracture distal femoral metadiaphysis, with one third shaft's width lateral displacement of the distal fracture fragment and at least 1.6 cm of override. Osteopenia limits evaluation for intra-articular extension, CT could help further clarify. 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 After cleansing: Gently pack with kerlix moist to moist 0.125% dakin's solution, ensure packing into undermining from 12-6 o'clock, leave a tail for easy removal and cover with ABD pad and medfix tape. Repeat twice daily and prn. Offloading/Skin Care/Edema Management: - continue specialty isolibrium/icu bed ADA/pressure redistribution - turn and reposition minimally every 2 hours - pad and protect bony prominences - moisturize dry skin, do not massage vigorously - elevate bilateral lower extremity/ies and float heel(s) on pillows or offloading true zenon boots - elevate upper extremities on pillows Antibiotics: Vancomycin Studies/Testing: reviewed as noted above - CT scan with extensive soft tissue stranding consistent with cellulitis, no abscess or fluid collection noted. Medical Management: per primary service Wound care will continue to follow while inpatient, orders written for bedside RN's to complete daily skin assessment and wound care orders daily and/or as written. May discharge from wound care perspective when medically stable as advised by other services. Follow up: as scheduled with Dr Pa URIBE and [facility] as an outpatient. As well as with other services as advised upon discharge. Thank you for allowing us to participate in the care of this patient. Please feel free to call us with any questions or concerns. April Martin APRN-ИРИНА 11/09/23 [facility] -3p [phone] - pager M--3p Secure Chat preferred & fastest response time Needs outside these hours please contact the reciprocating department: general surgery, vascular surgery, ortho or podiatry. Thank you! This note was created with the assistance of a speech-recognition program. Although the intention is to generate a document that accurately reflects the content of the visit, no guarantees can be provided that every mistake/misinterpretation has been identified and corrected by editing. ROBERT Man 11/09/23 1137 Associated Order(s): IP CONSULT TO NEPHROLOGY Reason for Consult: End stage renal disease. Requesting Physician: Wander Arias DO Assessment: End-stage renal disease previously on a Tuesday through Tuesday schedule at [facility], will maintain her on a MWF schedule while in the hospital. Hyponatremia. Hyperkalemia. Hypomagnesemia. Hyperphosphatemia. Anasarca. Hypotension. Anemia. Plan: Will give iv Albumin x 1 today and start oral Midodrine. Monitor blood pressure. Continue daily Lokelma. Will start low dose magnesium oxide. We will follow phosphorus level and adjust binders as needed. We will follow H&H and start erythropoeitin stimulating agent as needed. NPO now. Place on renal TF with fluid restriction of 1000 ml/24 hours once allowed to eat. Acid Base status stable and at target. K and Phos at target. We will follow up chemistries. Avoid Lovenox and Fleets enema. We will continue dialysis on MWF schedule. Thank you for the consultation. Please do not hesitate to contact us for any further questions/concerns. We will continue to follow along with you. HISTORY OF PRESENT ILLNESS: This is a 57 y.o. lady who has end-stage renal disease on hemodialysis, she receives dialysis [address] [facility] under the care of Dr. Fitzgerald. She apparently rolled out of bed to the floor. She has a distal L femur fracture. The patient has chronic tracheostomy tube and requires ventilator support chronically Review Of Systems: Unable to obtain. Past Medical History: Diagnosis Date Anemia CHF (congestive heart failure) ([facility]) Diabetes ([facility]) Morbid obesity ([facility] NSTEMI (non-ST elevated myocardial infarction) ([facility]) Respiratory failure ([facility]) Past Surgical History: Procedure Laterality Date TRACHEOSTOMY Prior to Admission medications Medication Sig Start Date End Date Taking? Authorizing Provider acetaminophen (TYLENOL) 325 mg tablet Take 2 tablets (650 mg total) by mouth every 6 (six) hours as needed for fever. Yes Not In System Ref Prov albuterol (PROVENTIL,VENTOLIN) 2.5 mg /3 mL (0.083 %) nebulizer solution Inhale 3 mL (2.5 mg total) by nebulization every 4 (four) hours as needed for shortness of breath. Yes Not In System Ref Prov ALPRAZolam (XANAX) 0.5 mg tablet Take 1 tablet (0.5 mg total) by mouth in the morning and 1 tablet (0.5 mg total) before bedtime. Yes Not In System Ref Prov ALPRAZolam (XANAX) 1 mg tablet Take 1 tablet (1 mg total) by mouth in the morning and 1 tablet (1 mg total) before bedtime. Indications: anxious. Yes Not In System Ref Prov aspirin 81 mg Take 1 tablet (81 mg total) by mouth in the morning. Yes Not In System Ref Prov atorvastatin (LIPITOR) 20 mg tablet Take 1 tablet (20 mg total) by mouth in the morning. Yes Not In System Ref Prov bumetanide (BUMEX) 1 mg tablet Take 2 tablets (2 mg total) by mouth daily. Yes Not In System Ref Prov busPIRone (BUSPAR) 10 mg tablet Take 1 tablet (10 mg total) by mouth in the morning and 1 tablet (10 mg total) before bedtime. Yes Not In System Ref Prov busPIRone (BUSPAR) 7.5 mg tablet Take 1 tablet (7.5 mg total) by mouth in the morning. Yes Not In System Ref Prov cholecalciferol (VITAMIN D3) 1,000 units tablet Take 2 tablets (2,000 Units total) by mouth in the morning. Indications: low vitamin D levels. Yes Not In System Ref Prov cyclobenzaprine (FLEXERIL) 5 mg tablet Take 2 tablets (10 mg total) by mouth every 6 (six) hours. Yes Not In System Ref Prov dicyclomine (BENTYL) 10 mg capsule Take 1 capsule (10 mg total) by mouth 3 (three) times a day. Yes Not In System Ref Prov epoetin beta, methoxy peg (MIRCERA) 75 mcg/0.3 mL syringe Inject 75 mcg as directed every 14 (fourteen) days. Yes Not In System Ref Prov FLUoxetine (PROzac) 20 mg capsule Take 30 mg by mouth in the morning. Yes Not In System Ref Prov folic acid-B klec-R-sxbof-zinc (DIALYVITE) 3-70-15 mg-mcg-mg tablet Take 1 tablet by mouth in the evening. Yes Not In System Ref Prov gabapentin (NEURONTIN) 100 mg capsule Take 1 capsule (100 mg total) by mouth 3 (three) times a day. Yes Not In System Ref Prov insulin glargine (LANTUS, BASAGLAR) 100 unit/mL (3 mL) insulin pen Inject 20 Units under the skin in the morning and 20 Units in the evening. Inject before meals. Patient taking differently: Inject 32 Units under the skin in the morning and 32 Units in the evening. Inject before meals. 11/11/22 Yes Annette Romero MD insulin lispro (HumaLOG) 100 unit/mL insulin pen [...] For glucose 351-400 mg/dL, give 10 units. 11/11/22 Yes Annette Romero MD insulin lispro (HumaLOG) 100 unit/mL insulin pen Inject 2-8 Units under the skin nightly. Bedtime hyperglycemia dosing. For glucose 201-250 mg/dL, give 2 units. For glucose 251-300 mg/dL, give 4 units. For glucose 301-350 mg/dL, give 6 units. For glucose 351-400 mg/dL, give 8 units. 11/11/22 Yes Annette Romero MD lacosamide (VIMPAT) 100 mg tablet Take 0.5 tablets (50 mg total) by mouth in the morning and 0.5 tablets (50 mg total) before bedtime. Yes Not In System Ref Prov levETIRAcetam (KEPPRA) 1000 mg tablet Take 0.5 tablets (500 mg total) by mouth 3 (three) times a day. Yes Not In System Ref Prov levothyroxine (SYNTHROID, LEVOTHROID) 175 MCG tablet Take 1 tablet (175 mcg total) by mouth in the morning. Yes Not In System Ref Prov midodrine (PROAMATINE) 10 mg tablet Take 1 tablet (10 mg total) by mouth as needed (Hemodialysis - PRN at initiation and midway through dialysis session). 11/11/22 Yes Annette Romero MD naloxone (NARCAN) 4 mg/actuation spray,non-aerosol nasal spray Administer 1 spray (4 mg total) into alternating nostrils as needed for opioid reversal. 11/11/22 Yes Annette Romero MD ondansetron (ZOFRAN) 4 mg tablet Take 1 tablet (4 mg total) by mouth every 6 (six) hours as needed for nausea or vomiting. Yes Not In System Ref Prov oxycodone HCl (OXYCODONE ORAL) Take 5 mg by mouth every 6 (six) hours as needed. Yes Not In System Ref Prov pantoprazole (PROTONIX) 40 mg EC tablet Take 1 tablet (40 mg total) by mouth in the morning. Yes Not In System Ref Prov polyethylene glycol (GLYCOLAX) 17 gram/dose powder Take 17 g by mouth in the morning. Yes Not In System Ref Prov potassium chloride (KLOR-CON M 20) 20 MEQ CR tablet Take 1 tablet (20 mEq total) by mouth in the morning. Yes Not In System Ref Prov risperiDONE (RisperDAL) 1 mg tablet Take 1 tablet (1 mg total) by mouth in the morning. Yes Not In System Ref Prov sennosides-docusate sodium (SENOKOT-S) 8.6-50 mg Take 1 tablet by mouth every 12 (twelve) hours as needed for constipation. Patient taking differently: Take 1 tablet by mouth once daily at bedtime. 11/11/22 Yes Annette Romero MD sevelamer (RENVELA) 800 mg tablet Take 4 tablets (3,200 mg total) by mouth in the morning and 4 tablets (3,200 mg total) at noon and 4 tablets (3,200 mg total) in the evening. Take with meals. Yes Not In System Ref Prov albuterol (ACCUNEB) 0.63 mg/3 mL nebulizer solution Inhale 3 mL (0.63 mg total) by nebulization every 6 (six) hours as needed for wheezing. Not In System Ref Prov predniSONE (DELTASONE) 20 mg tablet Take 1 tablet (20 mg total) by mouth in the morning. Patient not taking: Reported on 11/07/2023 Not In System Ref Prov Scheduled Meds: acetaminophen, 1,000 mg, oral, Q6H YOLA atorvastatin, 20 mg, oral, Daily chlorhexidine, 15 mL, mouth/throat, BID cyclobenzaprine, 5 mg, oral, TID famotidine, 20 mg, intravenous, Q48H FLUoxetine, 30 mg, oral, Daily insulin lispro, 2-10 Units, subcutaneous, Q6H lacosamide, 50 mg, oral, BID levETIRAcetam, 500 mg, oral, TID levothyroxine, 175 mcg, oral, Daily magnesium oxide, 400 mg, oral, Daily risperiDONE, 1 mg, oral, Daily sennosides-docusate sodium, 2 tablet, oral, Nightly sevelamer, 3,200 mg, oral, TID with meals sodium chloride, 10 mL, intravenous, Q96H sodium chloride, 10 mL, intravenous, Q96H sodium chloride, 3 mL, intravenous, Q12H YOLA sodium citrate, 2 mL, intravenous, Q96H sodium citrate, 2 mL, intravenous, Q96H sodium zirconium cyclosilicate, 10 g, oral, Daily with lunch Continuous Infusions: dextrose 5 % in water, 100 mL/hr sodium chloride 0.9 %, 3 mL/hr, Last Rate: 3 mL/hr (11/08/23 0415) PRN Meds: albuterol dextrose dextrose 5 % in water dextrose 50 % in water (D50W) dextrose 50 % in water (D50W) glucagon (human recombinant) magnesium sulfate OR magnesium sulfate midodrine ondansetron oxyCODONE AND oxyCODONE potassium chloride OR potassium chloride potassium chloride in water OR potassium chloride in water sodium phosphate IV OR sodium phosphate IV - central line OR sod phos di, mono-K phos mono sodium chloride sodium chloride sodium chloride sodium chloride sodium chloride sodium citrate sodium citrate Allergies Allergen Reactions Iodinated Contrast Media Shortness Of Breath Morphine Shortness Of Breath Fentanyl Patient gets burning and abdominal cramps Gadolinium-Containing Contrast Media Zosyn [Piperacillin-Tazobactam] Social History Socioeconomic History Marital status: Spouse name: Not on file Number of children: Not on file Years of education: Not on file Highest education level: Not on file Occupational History Not on file Tobacco Use Smoking status: Never Smokeless tobacco: Never Vaping Use Vaping status: Never Used Substance and Sexual Activity Alcohol use: Not Currently Drug use: Never Sexual activity: Defer Other Topics Concern Caffeine Use Yes Social History Narrative Not on file Social Determinants of Health Financial Resource Strain: Not on file Food Insecurity: No Food Insecurity (11/07/2023) Hunger Screening Food Insecurity - Worry: Never True Food Insecurity - Inability: Never True Transportation Needs: No Transportation Needs (11/07/2023) PRAPARE - Transportation Lack of Transportation (Medical): No Lack of Transportation (Non-Medical): No Physical Activity: Inactive (09/14/2023) Received from [facility] Exercise Vital Sign Days of Exercise per Week: 0 days Minutes of Exercise per Session: 0 min Stress: No Stress Concern Present (09/14/2023) Received from [facility] [employer] [place] [facility] [employer] [facility] - Occupational Stress Questionnaire Feeling of Stress : Not at all Social Connections: Not on file Interpersonal Safety: Not At Risk (11/07/2023) Humiliation, Afraid, Rape, and Kick questionnaire Fear of Current or Ex-Partner: No Emotionally Abused: No Physically Abused: No Sexually Abused: No Housing Instability: Low Risk (11/07/2023) Housing Instability Housing Instability: No History reviewed. No pertinent family history. Physical Exam: Vitals: 11/08/23 0900 11/08/23 0915 11/08/23 1000 11/08/23 1100 BP: 99/65 98/49 Pulse: 114 110 114 113 Resp: 17 17 24 22 Temp: 36.8 C (98.2 F) TempSrc: Oral SpO2: 97% 97% 95% 97% Weight: Height: I/O last 3 completed shifts: In: 360 [I.V.:360] Out: 0 [Other:182] General: Awake, alert, not in distress. Appears to be stated age. HEENT: Atraumatic, normocephalic. Anicteric sclera. [place] and moist oral mucosa. No carotid bruit. No JVD. Chest: Bilateral air entry, clear to auscultation, no wheezing, rhonchi or rales. Cardiovascular: RRR, S1S2, no murmur, rub or gallop. Has lower extremity edema. Abdomen: Soft, non tender to palpation. Active bowel sounds x 4 quadrants. Musculoskeletal: Active ROM x 4 extremities. No cyanosis or clubbing. Integumentary: [place], warm and dry. Free from rash or lesions. Skin turgor normal. FLIGHT TECHNICIAN: Oriented to person, place and time. Speech clear. Face symmetrical. No tremor. Data: CBC: Lab Results Component Value Date WBC 7.1 11/08/2023 HGB 10.6 (L) 11/08/2023 HCT 32.7 (L) 11/08/2023 MCV 98 11/08/2023 PLT 94 (L) 11/08/2023 BMP: Lab Results Component Value Date K 4.5 11/08/2023 K 5.2 (H) 11/07/2023 K 5.7 (H) 11/07/2023 CL 97 (L) 11/08/2023 CL 92 (L) 11/07/2023 CL 91 (L) 11/07/2023 CO2 22 11/08/2023 CO2 22 11/07/2023 CO2 22 11/07/2023 BUN 44 (H) 11/08/2023 BUN 69 (H) 11/07/2023 BUN 74 (H) 11/07/2023 CREATININE 4.31 (H) 11/08/2023 CREATININE 5.26 (H) 11/07/2023 CREATININE 5.85 (H) 11/07/2023 CMP: Lab Results Component Value Date K 4.5 11/08/2023 CL 97 (L) 11/08/2023 CO2 22 11/08/2023 BUN 44 (H) 11/08/2023 CREATININE 4.31 (H) 11/08/2023 CALCIUM 8.9 11/08/2023 ALKPHOS 182 (H) 11/07/2023 AST 11 11/07/2023 ALT 15 11/07/2023 Hepatic: Lab Results Component Value Date AST 11 11/07/2023 AST 11 11/07/2023 AST 19 07/17/2023 ALT 15 11/07/2023 ALT 18 11/07/2023 ALT 28 07/17/2023 ALKPHOS 182 (H) 11/07/2023 ALKPHOS 210 (H) 11/07/2023 ALKPHOS 141 (H) 07/17/2023 BNP: Lab Results Component Value Date BNP 101 (H) 07/17/2023 BNP 170 (H) 09/12/2022 BNP 202 (H) 08/19/2022 Lipids: Lab Results Component Value Date CHOL 95 (L) 09/30/2023 HDL 32 (L) 09/30/2023 INR: Lab Results Component Value Date INR 1.0 11/07/2023 INR 1.0 11/07/2023 INR 1.1 07/17/2023 PTH: No results found for: PTH Phosphorus: No results found for: PHOS Ionized Calcium: No components found for: IONCA Magnesium: Lab Results Component Value Date MG 1.7 (L) 11/08/2023 Albumin: No components found for: LABALBU Last 3 CK, CKMB, Troponin: URINE:)No results found for: NAUR , PROTUR Radiology: Reviewed. - Calin Randall MD 11/08/23 12:36 PM Patient is followed with Dr. Fitzgerald, I will change the consult SIRISHA DÍAZ MD [facility] ANY QUESTIONS FEEL FREE TO CALL: 1. OFFICE [phone] 2. ANSWERING SERVICE: [phone] Associated Order(s): IP CONSULT TO ORTHOPEDIC SURGERY Images from the original note were not included. Chief complaint: left distal femur fracture HPI: Matthew Neal is a 58 y.o. female with Hx of trach and peg, ESRD on dialysis M-F, non-ambulator, presents to [facility] as a transfer from [facility] c/o left knee pain after she [facility]. Patient states that the pain is localized to her left knee/distal femur. Xray reveals a comminuted and impacted distal femur fracture with some displacement. Patient admits to pain localized to left knee. Patient denies pain to left hip, left tib-fib, ankle or foot. Patient denies pain to bilateral upper and right lower extremities. Patient denies numbness or paresthesia to left lower extremity. Patient has no orthopedic history. Patient has no other complaints at this time. Date of injury was earlier this morning. Pain is described as Sharp, localized to her left distal femur. She does not have associated injuries. She is not having any numbness or tingling. Pain is improved with rest, analgesics, and immobilization; and worsened by movement and activity Past Medical History: Diagnosis Date Anemia CHF (congestive heart failure) ([facility]) Diabetes ([facility]) Morbid obesity ([facility]) NSTEMI (non-ST elevated myocardial infarction) ([facility]) Respiratory failure ([facility]) Past Surgical History: Procedure Laterality Date TRACHEOSTOMY Social History Tobacco Use Smoking status: Never Smokeless tobacco: Never Vaping Use Vaping status: Never Used Substance Use Topics Alcohol use: Not Currently Drug use: Never History reviewed. No pertinent family history. Allergies as of 11/07/2023 - Reviewed 11/07/2023 Allergen Reaction Noted Iodinated contrast media Shortness Of Breath 08/03/2020 Morphine Shortness Of Breath 08/03/2020 Fentanyl 11/05/2022 Gadolinium-containing contrast media 08/19/2022 Zosyn [piperacillin-tazobactam] 08/19/2022 Current Facility-Administered Medications: acetaminophen (TYLENOL EXTRA STRENGTH) tablet 1,000 mg, 1,000 mg, oral, Q6H Jagdish ACEVES APRN-CNP dextrose (GLUTOSE) 40 % gel 15 g, 15 g, oral, PRNJagdish APRN-CNP dextrose 5 % (D5W) infusion, 100 mL/hr, intravenous, Continuous PRNJagdish APRN-CNP dextrose 50 % in water (D50W) 50% solution 25 mL, 25 mL, intravenous, PRJagdish Wooten APRN-CNP dextrose 50 % in water (D50W) 50% solution 25 mL, 25 mL, intravenous, PRNJagdish APRN-CNP famotidine (PF) (PEPCID) injection 20 mg, 20 mg, intravenous, Q48H, ROBERT Gross glucagon HCL injection 1 mg, 1 mg, intramuscular, PRN, Jagdish Hooper APRN-ИРИНА magnesium sulfate IVPB 2000 mg/50 mL in iso-osmotic water (40 mg/mL premix), 2,000 mg, intravenous, PRN OR magnesium sulfate IVPB 4000 mg/100 mL in iso-osmotic water (40 mg/mL premix), 4,000 mg, intravenous, PRN, Jagdish Hooper APRN-ИРИНА ondansetron (PF) (ZOFRAN) injection 4 mg, 4 mg, intravenous, Q6H PRN, Jagdish Hooper APRN-ИРИНА oxyCODONE (ROXICODONE) immediate release tablet 5 mg, 5 mg, oral, Q4H PRN AND oxyCODONE (ROXICODONE) immediate release tablet 10 mg, 10 mg, oral, Q4H PRN, ROBERT Gross potassium chloride (K-TAB,KLOR-CON) CR tablet 20-50 mEq, 20-50 mEq, oral, PRN OR potassium chloride (KAYCIEL) 20 mEq/15 mL solution 20-50 mEq, 20-50 mEq, oral, PRN, Jagdish Hooper APRN-ИРИНА potassium chloride IVPB 10 mEq/50 mL in water (0.2 mEq/mL premix), 10 mEq, intravenous, PRN OR potassium chloride IVPB 10 mEq/100 mL in water (0.1 mEq/mL premix), 10 mEq, intravenous, PRN, Jagdish Hooper APRN-ИРИНА sennosides-docusate sodium (SENOKOT-S) 8.6-50 mg 2 tablet, 2 tablet, oral, Nightly, Jagdish Hooper APRN-ИРИНА sodium phosphate 20 mmol in sodium chloride 0.9 % 250 mL IVPB, 20 mmol, intravenous, PRN OR sodium phosphate 20 mmol in sodium chloride 0.9 % 100 mL IVPB, 20 mmol, intravenous, PRN OR sod phos di, mono-K phos mono (K-PHOS NEUTRAL) 250 mg tablet 2 tablet, 2 tablet, oral, PRN, Jagdish Hooper APRN-ИРИНА sodium chloride 0.9 % flush 3 mL, 3 mL, intravenous, PRN, ROBERT Gross sodium chloride 0.9 % flush 3 mL, 3 mL, intravenous, Q12H YOLAJagdish APRN-CNP REVIEW OF SYSTEMS: MSK: Left distal femur fracture, Neuro: Negative for numbness or tingling, All other ROS negative other than what is stated above in HPI (10 systems reviewed). PHYSICAL EXAM: Vitals: BP 106/59 Pulse 113 Temp 36.7 C (98.1 F) (Oral) Resp 13 Ht 152.4 cm (5') SpO2 98% BMI 68.28 kg/m General: Older than stated age and Morbidly Obese LOC: awake and alert Orientation: oriented to person, place, time, and recent events Psych: Pleasant and [place] Station: Lying supine on hospital bed HEENT: normocephalic, atraumatic head, neck, & facies, no ecchymosis or abrasions, midline trachea Resp: no respiratory distress, acyanotic, normal RR, breathing easily, nonlabored, no use of accessory muscles Musculoskeletal: Left LE: Skin intact, TTP to distal femur. No TTP to left hip, tib-fib, ankle or foot. SILT s/s/sp/dp/pt, + motor fxn EHL, FHL, DF, PF. Comparments & calves soft and compressible Palpable pulses with BCR x 5. IMAGING: I personally viewed X-ray of left knee and femur - Cursory exam reveals an impacted distal femur fracture with lateral displacement of distal femur. No other acute osseous abnormalities noted. I personally viewed CT of left knee - Cursory exam reveals comminuted distal femoral metaphyseal fracture. No other acute osseous abnormalities noted. Imaging: CT knee left without contrast Result Date: 11/07/2023 Clinical history: Knee trauma. Dislocation. CT left knee without contrast: 11/07/2023 COMPARISON: None PROCEDURE: Axial images were obtained through the knee. Coronal and sagittal reconstructions were performed. All CT scans at this facility use dose modulation, iterative reconstruction, and/or weight based dosing when appropriate to reduce radiation dose to as low as reasonably achievable FINDINGS: There is a comminuted distal femoral fracture which is difficult to characterize due to bone demineralization. This has a transverse component proximal to the condylar level with some impaction. Sagittal plane components appear to extend into the intercondylar region without definite disruption of articular surfaces at the medial and lateral condylar region. Soft tissue swelling is present around the knee with a large suprapatellar effusion/hemarthrosis. There is no patellar injury. The tibial plateau and proximal fibula appear within normal limits with generalized bone demineralization. There is edema within subcutaneous tissues throughout the knee. IMPRESSION: Comminuted distal femoral fracture with extension into the intercondylar portion of the knee. Finalized by Artur Pardo MD on 11/07/2023 4:[address] chest without contrast Result Date: 11/07/2023 Clinical history:Blunt chest trauma. CT chest without contrast:11/07/2023 Comparison: 03/21/2021 Procedure: Axial images were obtained through the chest without intravenous contrast. Coronal and sagittal reconstructions were performed. All CT scans at this facility use dose modulation, iterative reconstruction, and/or weight based dosing when appropriate to reduce radiation dose to as low as reasonably achievable. Findings: Evaluation is inhibited by body habitus. Patchy alveolar opacity and volume loss are present in the left lower lobe, the left upper lobe and the paramediastinal right lower lobe. There is no large pleural effusion or pneumothorax. The heart is enlarged with tracheostomy and central line in place. No acute mediastinal abnormality is present. There is no acute osseous abnormality within the thorax. IMPRESSION: Pulmonary infiltrates may reflect areas of atelectasis or pneumonia. Follow-up to resolution would be required to exclude an underlying abnormality. No definite posttraumatic abnormality within the chest. Finalized by Artur Pardo MD on 11/07/2023 4:[address] abdomen and pelvis without contrast Result Date: 11/07/2023 CLINICAL INFORMATION: Abdominal trauma, blunt. Pain TECHNIQUE: CT Abdomen and Pelvis without intravenous contrast. All CT scans at this facility use dose modulation, iterative reconstruction, and/or weight based dosing when appropriate to reduce radiation dose to as low as reasonably achievable. COMPARISON: 10/25/2023. 01/20/2021 FINDINGS: Left lower lobe consolidation and atelectasis persists. There is no pneumoperitoneum on the visualized portions of the abdomen. Much of the left hemiabdomen including the anterior abdominal wall is not included on this imaging volume due to body habitus. Changes of cholecystectomy again noted. Given limitations of a noncontrast enhanced exam the liver, spleen, right adrenal gland and pancreas appear unremarkable. Limbs of the left adrenal gland remains somewhat thickened particularly the medial limb, however this is unchanged from prior exam dating back to 01/20/2021 favoring a nonaggressive etiology. Renal collecting systems and ureters are not dilated. Dense atherosclerotic aortoiliac and visceral vascular calcifications again seen. Gas-filled yet nondilated colon again noted in the upper abdomen with what appears to be descending colostomy, only partially imaged. Soft tissue stranding throughout the lower anterior abdominal wall and pelvis again noted suggesting cellulitis. There is no intraperitoneal nor retroperitoneal nor anterior abdominal wall drainable fluid collection/abscess. Bilobed shaped left adnexal fluid attenuation structure has been present since at least 01/20/2021 and likely represents a large ovarian cyst. No definite dilated loops of bowel to suggest bowel obstruction. IMPRESSION: 1. Redemonstration of extensive soft tissue stranding throughout the intra-abdominal wall/pelvis most consistent with cellulitis. No fluid collection/abscess. 2. Persistent nonspecific left lower lobe consolidation and atelectasis. 3. Persistent left adnexal cystic lesion. This has been present since at least 2020. Nonaggressive etiology, however it is still nonspecific. 4. No abdominal nor pelvic fluid collections. Finalized by Wander De La Cruz MD on 11/07/2023 4:15 PM X-ray knee left 3 views Result Date: 11/07/2023 3 VIEWS LEFT KNEE HISTORY: Fracture, pain COMPARISON: None IMPRESSION: * Acute comminuted distal left femur fracture with mild impaction and slight lateral displacement of the main distal fracture fragment measuring 1.7 cm. * Diffuse osteopenia. Finalized by Bart Way MD on 11/07/2023 11:58 AM X-ray chest 1 view Result Date: 11/07/2023 CHEST 1 VIEW HISTORY: Dialysis COMPARISON: 07/17/2023 IMPRESSION: * Stable tracheostomy tube and right-sided dialysis catheter. * Persistent extensive opacities throughout the left hemithorax with volume loss, similar to previous study. Right lung is clear. * Unable to evaluate cardiomediastinal silhouette due to significant abnormalities in the left hemithorax. Finalized by Bart Way MD on 11/07/2023 11:57 AM X-ray femur left 2+ views Result Date: 11/07/2023 XR FEMUR LT 2+ VIEWS HISTORY: distal femur fracture COMPARISON: None available. IMPRESSION: Mildly comminuted fracture distal femoral metadiaphysis, with one third shaft's width lateral displacement of the distal fracture fragment and at least 1.6 cm of override. Osteopenia limits evaluation for intra-articular extension, CT could help further clarify. Finalized by Kelvin Wallis on 11/07/2023 11:55 AM LABS: Lab Results Component Value Date WBC 7.4 11/07/2023 HGB 11.5 (L) 11/07/2023 HCT 34.4 (L) 11/07/2023 MCV 97 11/07/2023 PLT 90 (L) 11/07/2023 Lab Results Component Value Date GLU 218 (H) 11/07/2023 CALCIUM 8.9 11/07/2023 K 5.7 (H) 11/07/2023 CO2 22 11/07/2023 BUN 74 (H) 11/07/2023 CREATININE 5.85 (H) 11/07/2023 No results found for: VITD25 Lab Results Component Value Date INR 1.0 11/07/2023 INR 1.0 11/07/2023 INR 1.1 07/17/2023 PROTIME 11.7 11/07/2023 PROTIME 12.2 11/07/2023 PROTIME 12.4 07/17/2023 DIAGNOSIS: 1) Matthew Neal is a 58 y.o. female with left closed distal femur fracture ASSESSMENT/PLAN: Patient d/w Dr. Vasquez. Plan for operative stabilization of left distal femur fracture tomorrow, 11/07 Patient to remain NWB left lower extremity at all times. In knee immobilizer Trauma to admit Ice and elevation of affected extremity at all times. N/V checks - per protocol Pain control - per primary DVT Prophylaxis - hold until POD # 1 Discussed plan with patient. Will call family to get consent. Dr. Vasquez to see in the morning. RJ Geiger PA 11/08/23 0033 SICU Academic Critical Care Consultation Name: Matthew Neal Date: 11/07/2023 Length of Stay: 0 day(s) Chief Complaint: Fall, left leg injury History of Present Illness: Matthew Neal is a 58 y.o. female with PMH of NSTEMI, diabetes, congestive heart failure, end-stage renal disease s/p tunneled cath, and respiratory failure s/p tracheostomy who presents from OSH with left leg injury. Patient reportedly fell out of bed at [facility] at and rolled her left leg. She immediately began experiencing pain and swelling over left leg. Denies head injury or LOC. Not currently anticoagulated. Past Medical History: Diagnosis Date Anemia CHF (congestive heart failure) ([facility]) Diabetes ([facility]) Morbid obesity ([facility]) NSTEMI (non-ST elevated myocardial infarction) ([facility]) Respiratory failure ([facility]) Past Surgical History: Procedure Laterality Date TRACHEOSTOMY ROS Positive findings checked Constitutional: []fever, []chills, []fatigue, []unplanned weight change. HEENT: []head pain, []hearing changes, []vision changes, []sneezing, []sore throat. Neck: [] masses, []swelling, []pain. Respiratory: []cough, []shortness of breath. Cardiovascular: []chest pain, []palpitations. Gastrointestinal: []abdominal pain, []nausea, []vomiting, []diarrhea, []constipation, []hematochezia, []melena . Genitourinary: []dysuria,[] urgency, []change in frequency,[] hematuria. Endocrine: [] heat intolerance, []cold intolerance. Musculoskeletal: []myalgias, [x] L leg pain, [x]swelling. Neurological: []dizziness, []ight-headedness, []weakness, []numbness, []tingling. Skin: []color change, []easy bruising, []rashes, []new lesions. Immunologic: []adenopathy, []environmental allergies, []food allergies. Psychiatric: []anxiety, []sleep disturbance. Medications Prior to Admission Medication Sig Dispense Refill Last Dose acetaminophen (TYLENOL) 325 mg tablet Take 2 tablets (650 mg total) by mouth every 6 (six) hours as needed for fever. Other - as prescribed albuterol (PROVENTIL,VENTOLIN) 2.5 mg /3 mL (0.083 %) nebulizer solution Inhale 3 mL (2.5 mg total) by nebulization every 4 (four) hours as needed for shortness of breath. Other - as prescribed ALPRAZolam (XANAX) 0.5 mg tablet Take 1 tablet (0.5 mg total) by mouth in the morning and 1 tablet (0.5 mg total) before bedtime. ALPRAZolam (XANAX) 1 mg tablet Take 1 tablet (1 mg total) by mouth in the morning and 1 tablet (1 mg total) before bedtime. Indications: anxious. aspirin 81 mg Take 1 tablet (81 mg total) by mouth in the morning. atorvastatin (LIPITOR) 20 mg tablet Take 1 tablet (20 mg total) by mouth in the morning. bumetanide (BUMEX) 1 mg tablet Take 2 tablets (2 mg total) by mouth daily. busPIRone (BUSPAR) 10 mg tablet Take 1 tablet (10 mg total) by mouth in the morning and 1 tablet (10 mg total) before bedtime. busPIRone (BUSPAR) 7.5 mg tablet Take 1 tablet (7.5 mg total) by mouth in the morning. cholecalciferol (VITAMIN D3) 1,000 units tablet Take 2 tablets (2,000 Units total) by mouth in the morning. Indications: low vitamin D levels. cyclobenzaprine (FLEXERIL) 5 mg tablet Take 2 tablets (10 mg total) by mouth every 6 (six) hours. Other - as prescribed dicyclomine (BENTYL) 10 mg capsule Take 1 capsule (10 mg total) by mouth 3 (three) times a day. epoetin beta, methoxy peg (MIRCERA) 75 mcg/0.3 mL syringe Inject 75 mcg as directed every 14 (fourteen) days. FLUoxetine (PROzac) 20 mg capsule Take 30 mg by mouth in the morning. folic acid-B ddiq-S-kczrn-zinc (DIALYVITE) 3-70-15 mg-mcg-mg tablet Take 1 tablet by mouth in the evening. gabapentin (NEURONTIN) 100 mg capsule Take 1 capsule (100 mg total) by mouth 3 (three) times a day. insulin glargine (LANTUS, BASAGLAR) 100 unit/mL (3 mL) insulin pen Inject 20 Units under the skin in the morning and 20 Units in the evening. Inject before meals. (Patient taking differently: Inject 32 Units under the skin in the morning and 32 Units in the evening. Inject before meals.) 15 mL 12 insulin lispro (HumaLOG) 100 unit/mL insulin pen [...] mg/dL, give 10 units. 15 mL 12 insulin lispro (HumaLOG) 100 unit/mL insulin pen Inject 2-8 Units under the skin nightly. Bedtime hyperglycemia dosing. For glucose 201-250 mg/dL, give 2 units. For glucose 251-300 mg/dL, give 4 units. For glucose 301-350 mg/dL, give 6 units. For glucose 351-400 mg/dL, give 8 units. 15 mL 12 lacosamide (VIMPAT) 100 mg tablet Take 0.5 tablets (50 mg total) by mouth in the morning and 0.5 tablets (50 mg total) before bedtime. levETIRAcetam (KEPPRA) 1000 mg tablet Take 0.5 tablets (500 mg total) by mouth 3 (three) times a day. levothyroxine (SYNTHROID, LEVOTHROID) 175 MCG tablet Take 1 tablet (175 mcg total) by mouth in the morning. midodrine (PROAMATINE) 10 mg tablet Take 1 tablet (10 mg total) by mouth as needed (Hemodialysis - PRN at initiation and midway through dialysis session). 90 tablet 3 Other - as prescribed naloxone (NARCAN) 4 mg/actuation spray,non-aerosol nasal spray Administer 1 spray (4 mg total) into alternating nostrils as needed for opioid reversal. 3 each 3 Other - as prescribed ondansetron (ZOFRAN) 4 mg tablet Take 1 tablet (4 mg total) by mouth every 6 (six) hours as needed for nausea or vomiting. Other - as prescribed oxycodone HCl (OXYCODONE ORAL) Take 5 mg by mouth every 6 (six) hours as needed. Other - as prescribed pantoprazole (PROTONIX) 40 mg EC tablet Take 1 tablet (40 mg total) by mouth in the morning. polyethylene glycol (GLYCOLAX) 17 gram/dose powder Take 17 g by mouth in the morning. potassium chloride (KLOR-CON M 20) 20 MEQ CR tablet Take 1 tablet (20 mEq total) by mouth in the morning. risperiDONE (RisperDAL) 1 mg tablet Take 1 tablet (1 mg total) by mouth in the morning. sennosides-docusate sodium (SENOKOT-S) 8.6-50 mg Take 1 tablet by mouth every 12 (twelve) hours as needed for constipation. (Patient taking differently: Take 1 tablet by mouth once daily at bedtime.) 60 tablet 3 sevelamer (RENVELA) 800 mg tablet Take 4 tablets (3,200 mg total) by mouth in the morning and 4 tablets (3,200 mg total) at noon and 4 tablets (3,200 mg total) in the evening. Take with meals. albuterol (ACCUNEB) 0.63 mg/3 mL nebulizer solution Inhale 3 mL (0.63 mg total) by nebulization every 6 (six) hours as needed for wheezing. predniSONE (DELTASONE) 20 mg tablet Take 1 tablet (20 mg total) by mouth in the morning. (Patient not taking: Reported on 11/07/2023) Unknown acetaminophen, 1,000 mg, oral, Q6H YOLA famotidine, 20 mg, intravenous, Q48H sennosides-docusate sodium, 2 tablet, oral, Nightly sodium chloride, 10 mL, intravenous, Q96H sodium chloride, 10 mL, intravenous, Q96H sodium chloride, 3 mL, intravenous, Q12H YOLA sodium citrate, 2 mL, intravenous, Q96H sodium citrate, 2 mL, intravenous, Q96H sodium zirconium cyclosilicate, 10 g, oral, Daily with lunch dextrose 5 % in water, 100 mL/hr Allergies Allergen Reactions Iodinated Contrast Media Shortness Of Breath Morphine Shortness Of Breath Fentanyl Patient gets burning and abdominal cramps Gadolinium-Containing Contrast Media Zosyn [Piperacillin-Tazobactam] History reviewed. No pertinent family history. Social History Socioeconomic History Marital status: Tobacco Use Smoking status: Never Smokeless tobacco: Never Vaping Use Vaping status: Never Used Substance and Sexual Activity Alcohol use: Not Currently Drug use: Never Sexual activity: Defer Other Topics Concern Caffeine Use Yes Social Determinants of Health Food Insecurity: No Food Insecurity (11/07/2023) Hunger Screening Food Insecurity - Worry: Never True Food Insecurity - Inability: Never True Transportation Needs: No Transportation Needs (11/07/2023) PRAPARE - Transportation Lack of Transportation (Medical): No Lack of Transportation (Non-Medical): No Physical Activity: Inactive (09/14/2023) Received from [facility] Exercise Vital Sign Days of Exercise per Week: 0 days Minutes of Exercise per Session: 0 min Stress: No Stress Concern Present (09/14/2023) Received from [facility] [place] [facility] Occupational [facility] - Occupational Stress Questionnaire Feeling of Stress : Not at all Interpersonal Safety: Not At Risk (11/07/2023) Humiliation, Afraid, Rape, and Kick questionnaire Fear of Current or Ex-Partner: No Emotionally Abused: No Physically Abused: No Sexually Abused: No Housing Instability: Low Risk (11/07/2023) Housing Instability Housing Instability: No Temp: [36.3 C (97.4 F)-36.9 C (98.4 F)] 36.7 C (98.1 F) Pulse: [108-116] 113 Resp: [13-20] 18 BP: (106-133)/(59-92) 122/92 FiO2 (%): [40 %] 40 % SpO2: [96 %-100 %] 96 % O2 Device: Trach In-situ O2 Device: Trach In-situ Physical Exam General: Awake, alert and oriented x3, in no acute distress HENT: Head atraumatic, normocephalic, external ears and nose are normal Eyes: Conjunctivae clear, non-icteric, EOMI Pulmonary: Regular, non-labored respirations, tracheostomy Cardiovascular: Regular rate and rhythm, radial pulses 2+, moderately edematous b/l lower extremities Abdomen: Soft, non-tender, non-distended, obese abdomen Musculoskeletal: Limited ROM L lower extremity, R lower extremity normal ROM without obvious deformity Neurological: No gross neurologic deficit, sensation grossly intact Skin: Warm, dry, without jaundice Ventilator Settings Vent Mode: PRVC-AC FiO2 (%): 40 % Resp Rate (Set): 18 Vt (Set, mL): 400 mL Avea Vt (Set, L): 0.4 Liter PEEP/CPAP (cm H2O): 8 cm H20 Insp Time (sec): 1 sec Trigger Sensitivity Flow (L/min): 1 L/min Trigger Sensitivity Pressure (cm H2O): 3 cm H2O Humidification: Heater Heater Temperature: 37 C (98.6 F) Results from last 3 days Lab Units 11/07/23 1510 11/07/23 1115 BUN mg/dL 74* 78* CREATININE mg/dL 5.85* 5.72* POTASSIUM mmol/L 5.7* 5.7* CO2 mmol/L 22 22 CHLORIDE mmol/L 91* 89* MAGNESIUM mg/dL -- 1.8 AST U/L 11 -- ALT U/L 18 -- ALK PHOS U/L 210* -- Results from last 3 days Lab Units 11/07/23 1510 11/07/23 1115 INR 1.0 1.0 PROTIME sec 11.7 12.2 Results from last 3 days Lab Units 11/07/23 1510 11/07/23 1115 WBC X10E9/L 7.4 7.7 HEMOGLOBIN g/dL 11.5* 11.4* HEMATOCRIT % 34.4* 35.4 PLATELETS X10E9/L 90* 105* MCV fL 97 98 MCH pg 32.6 31.7 MCHC g/dL 33.5 32.2 RDW % 15.9* 15.9* EOS ABS AUTO X10E9/L 0.1 0.2 Microbiology Results Procedure Component Value Units Date/Time Urine culture [[id number]] Collected: 11/07/23 1226 Specimen: Urine Updated: 11/07/23 151 Glucose Results from last 7 days Lab Units 11/07/23 1510 11/07/23 1332 11/07/23 1115 BEDSIDE GLUCOSE mg/dL -- 263* -- GLUCOSE mg/dL 218* -- 255* No intake/output data recorded. acetaminophen, 1,000 mg, oral, Q6H YOLA famotidine, 20 mg, intravenous, Q48H sennosides-docusate sodium, 2 tablet, oral, Nightly sodium chloride, 10 mL, intravenous, Q96H sodium chloride, 10 mL, intravenous, Q96H sodium chloride, 3 mL, intravenous, Q12H YOLA sodium citrate, 2 mL, intravenous, Q96H sodium citrate, 2 mL, intravenous, Q96H sodium zirconium cyclosilicate, 10 g, oral, Daily with lunch dextrose 5 % in water, 100 mL/hr Microbiology Results Procedure Component Value Units Date/Time Urine culture [[id number]] Collected: 11/07/23 1226 Specimen: Urine Updated: 11/07/23 1515 Lines/Drains PICC Single Lumen 08/03/20 (Active) Hemodialysis Catheter Double Cuffed Right Internal Jugular (Active) Hemodialysis Catheter Triple 10/03/22 Cuffed Right Subclavian (Active) Peripheral IV 11/07/23 Left Antecubital (Active) Line Status Blood return noted;Flushed;Saline locked 11/07/23 1229 Site Assessment Clean;Dry;Intact 11/07/23 1229 Dressing Type Transparent 11/07/23 1229 Dressing Status Clean;Dry;Intact 11/07/23 1229 Urinary Catheter 11/07/23 Single lumen (Active) Catheter Status Patent 11/07/23 1238 Site Assessment Clean;Skin intact 11/07/23 1238 Collection Container Standard drainage bag/container 11/07/23 1238 Securement Method Securing device (Describe) 11/07/23 1238 Reason for Continuing Physician order 11/07/23 1238 Urine Color Yellow/straw 11/07/23 1238 Urine Appearance Cloudy;Sediment;Mucous 11/07/23 1238 Surgical Airway 12/11/20 Shiley Cuffed 6 (Active) Surgical Airway Cuffed 6 (Active) Surgical Airway Shiley Cuffed 6 (Active) Surgical Airway 11/07/23 Shiley Cuffed 6 (Active) Status Secured 11/07/23 1458 Site Assessment Clean;Dry 11/07/23 1458 Ties Assessment Intact;Dry;Clean 11/07/23 1112 Emergency Equipment at Bedside Bag and mask;Suction 11/07/23 1458 ACTIVE PROBLEM LIST: Left distal femur fracture s/p fall ESRD Ventilator dependence Chronic abdominal wound with possible cellulitis Type 1 DM CAD ASSESSMENT/PLAN: Matthew Neal is a 58 y.o. female [facility]ing from [facility] with left femur fracture s/p fall rom bed. Chronic trach and daily dialysis dependant. 1. Neuro Hospital Meds: Sedation: none Analgesia: Tylenol, Oxycodone Other: PMH: Anxiety, depression Home Meds: Tylenol, alprazolam, buspirone,prozac, gabapentin, vimpat, midodrine, keppra, narcan, oxycodone, risperidone, flexeril PSH: 2. Cardiovascular Hemodynamics: Tachycardic rate, regular rhythm Normotensive Pressors: none Goal MAP >65 Continuous cardiac monitoring Hospital Meds: PMH: NSTEMI, CAD, CHF Home Meds: Aspirin, atorvastatin PSH: Code Status: Full 3. Pulmonary Breathing Support: Ventilator Settings: PRVC, FiO2 40%, PEEP 8, RR 18 SpO2: 96% Continuous pulse oximetry Hospital Meds: PMH: COPD, Respiratory failure s/p tracheotomy Home Meds: Albuterol PSH: Surgical airway creation 4. 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 Renal/Genitourinary End stage renal disease Daily dialysis; patient has tunneled catheter Dr. Leal consulted; dialysis orders placed Electrolytes: Results from last 3 days Lab Units 11/07/23 1510 11/07/23 1115 SODIUM mmol/L 128* 127* CHLORIDE mmol/L 91* 89* POTASSIUM mmol/L 5.7* 5.7* CO2 mmol/L 22 22 BUN mg/dL 74* 78* CREATININE mg/dL 5.85* 5.72* MAGNESIUM mg/dL -- 1.8 Will replace electrolytes PRN per ICU protocol Fluid Balance: IV Fluids: none UOP/24 H: pending Net Fluid/24H: No intake or output data in the 24 hours ending 07/29/24 1755 Net Fluid Since Admission: Net IO Since Admission: No IO data has been entered for this period [11/07/231754] Strict monitoring of intake and output Hospital Meds: PMH: ESRD, daily dialysis Home Meds: Bumex PSH: 6. Heme Labs: Results from last 3 days Lab Units 11/07/23 1510 11/07/23 1115 HEMOGLOBIN g/dL 11.5* 11.4* PLATELETS X10E9/L 90* 105* INR 1.0 1.0 Type and Screen: O RH+ Blood Products Administered: none Will continue to monitor hgb and transfuse PRN 7. ID Tmax/24H: Temp (24hrs), Av.7 C (98 F), Min:36.3 C (97.4 F), Max:36.9 C (98.4 F) Labs: Results from last 3 days Lab Units 11/07/23 1510 11/07/23 1115 WBC X10E9/L 7.4 7.7 Hospital Meds: Antibiotics: none Continue to monitor for signs of infection 8. Endocrine Results from last 3 days Lab Units 11/07/23 1510 11/07/23 1332 11/07/23 1115 BEDSIDE GLUCOSE mg/dL -- 263* -- GLUCOSE mg/dL 218* -- 255* Goal Blood Glucose <180 mg/dL Hospital Meds: SSI, Lantus BID PMH: Type 1 diabetes mellitus Home Meds: Lantus, HumaLOG, levothyroxine, prednisone PSH: 9. Musculoskeletal Left distal femur fracture, displaced CT scan of E 11/06: Comminuted distal femoral fracture with extension into the intercondylar portion of the knee. Orthopedic surgery consulted and following Splinted and immobilized L knee PMH: PSH: Home meds: PT/OT when able 10. Prophylaxis Respiratory: none GI: Pepcid DVT: SCD Cuffs, hold chem ppx 11. Lines, Drains, and Airway Hemodialysis catheter double lumen cuffed R IJ PICC line Hemodialysis cath triple lumen cuffed R subclavian 2x PIV Restrepo Tracheostomy Dispo: Critical, remain in SICU Marie Quick MD [employer], PGY-1 Associated attestation - Leah Eric MD - 11/08/2023 4:36 PM EDT ATTENDING NOTE This patient remains critically ill and requires constant monitoring and titration of care by a Critical Care Consultant Electronics. Failure to do so may result in further organ system failure, imminent deterioration, or . Critical care time spent directly with the patient and family: 32 min Critical care was time spent personally by me on the following activities: Development of treatment plan with the patient or surrogate, discussions with consultants, discussions with the primary provider, ordering and performing treatments and interventions, ordering and review of laboratory studies, ordering and review of radiographic studies, pulse oximetry, re-evaluation of patient's condition, review of old charts, vascular access procedures, evaluation of patient's response to treatment, examination of patient, interpretation of cardiac output measurements and obtaining history from patient or surrogate I have seen and evaluated the patient and have also reviewed the history above and agree. I have repeated the finley portions of the physical exam and concur with the resident's/advanced practice provider findings. I have reviewed all laboratory findings and imaging reports/films. I agree with the plan as noted above. Electronically signed by Leah Eric MD [facility] General Surgeons Trauma, Acute Care Surgery and Surgical Critical Care documented in this encounter [facility] 11-09-2023 Plan of care note Problem: Alternate Airway Goal: Tracheotomy/laryngectomy will be maintained safely Description: INTERVENTIONS 1. Keep resuscitation bag, mask, oxygen connection tubing, and extra tracheostomy at bedside; accompanying patient at all times 2. Obturator in plastic bag, readily available at bedside 3. Assess trach site 4. Utilize trach securing device and change as needed per policy 5. Support tubing to avoid pressure from drag of tubing 6. Provide trach care at least every 8 hrs and as needed 7. Change tracheostomy/inner cannula per policy as needed Outcome: Progressing Note: Respiratory Therapy Clinical Practice Guidelines Consult Clinical Practice Guidelines Ordered Consult Assessment: Consult, Broncho-pulmonary hygiene, Bronchodilator Broncho-pulmonary Hygiene Indications: Retained secretions or difficulty with clearance Broncho-pulmonary Hygiene Total: 1 Bronchodilator Indications: Bronchospasm/wheezing Bronchodilator Total: 1 Vital Signs FiO2 (%): 40 % EtCO2 (mmHg): 33 mmHg ETCO2 Alarm - High: 50 ETCO2 Alarm - Low: 20 Respiratory Assessment Assessment Type: Subsequent assessment Level of Consciousness: Alert Respiratory Pattern: Regular Chest Assessment: Chest expansion symmetrical Bilateral Breath Sounds: Clear, Diminished Readings Vt (observed, mL): 0.3 mL Avea Vt Mandatory Exp (L): 0.32 Minute Ventilation (L/min): 7.17 L/min PIP Observed (cm H2O): 36 cm H2O Total Rate : 22 MAP (cm H2O): 17 CM H20 EtCO2 (mmHg): 33 mmHg I:E Readin:2 Dynamic Compliance (L/cm H2O): 12.03 L/cm H2O Patient Active Problem List Diagnosis Dyspnea NSTEMI (non-ST elevated myocardial infarction) ([facility]) Infected prosthetic mesh of abdominal wall ([facility]) Morbid obesity ([facility]) End stage renal disease ([facility]) Ventilator dependence ([facility]) Coronary artery disease Diabetes 1.5, 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 * (not in an exacerbation) Patients Current Level & Intervention: Level 1: No BP hygiene indicated. Continue suctioning every 4 hours Intervention Mode Selected: ----- Mechanical Ventilator Bronchodilator Breath Sounds Level 1: Clear or occasional minimal wheezing Respiratory History Level 2: Positive risk factors include but not limited to - HX of smoking ; Hx of pulmonary complications ; Smoke inhalation ; physical/chemical trauma to the lung or upper airway Peak Pressures Level 1: Less than 25 cm H2O Peak Minus Plateau Pressure Level 1: 3 cm H2O or less Other Considerations for adventitious breath sounds, elevated peak pressures and peak/plateau difference. Endotracheal tube too small, tube kinked/Foreign body in the lumen Partial cuff herniation Secretions and/or mucus plugging Tracheal malacia or stenosis Patients Current Level & Intervention: 1 Every 4 hours PRN for wheezing E valuation of progress towards goal: Reviewed [employer] [facility] 11-08-2023 Plan of care note Problem: Alternate Airway Goal: Tracheotomy/laryngectomy will be maintained safely Description: INTERVENTIONS 1. Keep resuscitation bag, mask, oxygen connection tubing, and extra tracheostomy at bedside; accompanying patient at all times 2. Obturator in plastic bag, readily available at bedside 3. Assess trach site 4. Utilize trach securing device and change as needed per policy 5. Support tubing to avoid pressure from drag of tubing 6. Provide trach care at least every 8 hrs and as needed 7. Change tracheostomy/inner cannula per policy as needed Outcome: Progressing Note: Evaluation of progress towards goal: pt stable Respiratory Therapy Clinical Practice Guidelines Consult Vital Signs Pulse: 103 Heart Rate Source: Monitor Resp: 25 SpO2: 100 % O2 Device: Trach In-situ FiO2 (%): 40 % EtCO2 (mmHg): 32 mmHg Patient Position: Semi-fowlers Respiratory Assessment Assessment Type: Subsequent assessment Level of Consciousness: Alert Respiratory Pattern: Regular Chest Assessment: Chest expansion symmetrical Bilateral Breath Sounds: Clear, Diminished Cough Cough: Induced Suctioning Suction: Oral, Trach Oral Suctioning/Secretions Oral Suction Type: Oral Oral Suction Device: Soft tip Oral Secretion Amount: Small Oral Secretion Color: Clear Oral Secretion Consistency: Thin Oral Suction Tolerance: Tolerated well Oral Suctioning Adverse Effects: None Airway Suctioning/Secretions Airway Suction Type: Tracheal Airway Suction Device : Inline Airway Secretion Amount: Small Airway Secretion Color: Yellow Airway Secretion Consistency: Thick Airway Suction Tolerance: Tolerated well Readings Vt (observed, mL): 0.3 mL Avea Vt Mandatory Exp (L): 0.33 Minute Ventilation (L/min): 7.16 L/min PIP Observed (cm H2O): 37 cm H2O Total Rate : 22 MAP (cm H2O): 17 CM H20 EtCO2 (mmHg): 32 mmHg Plateau Pressure (cm H2O): 33 cm H2O I:E Readin:2 Static Compliance (L/cm H2O): 12.77 Dynamic Compliance (L/cm H2O): 11.48 L/cm H2O Patient Active Problem List Diagnosis Dyspnea NSTEMI (non-ST elevated myocardial infarction) ([facility]) Infected prosthetic mesh of abdominal wall ([facility]) Morbid obesity ([facility]) End stage renal disease ([facility]) Ventilator dependence ([facility]) Coronary artery disease Diabetes 1.5, 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 * (not in an exacerbation) Patients Current Level & Intervention: Level 1: No BP hygiene indicated. Continue suctioning every 4 hours Intervention Mode Selected: ----- Mechanical Ventilator Bronchodilator Breath Sounds Home Therapy: Patient Baseline Respiratory History Home Therapy: Requires home therapy Peak Pressures Home Therapy: Patient Baseline Peak Minus Plateau Pressure Home Therapy: NA Other Considerations for adventitious breath sounds, elevated peak pressures and peak/plateau difference. Endotracheal tube too small, tube kinked/Foreign body in the lumen Partial cuff herniation Secretions and/or mucus plugging Tracheal malacia or stenosis Patients Current Level & Intervention: Home Therapy As at home, reconcile orders with home meds if pulmonary status is stable [facility] [employer] 11-08-2023 Progress note Formatting of t his note might be different from the original. DISCHARGE PLANNING NOTE Case discussed in daily transition rounds and chart reviewed by CN. Discharge Plan: ECF. Return to [place] in [place]. Return referral sent, updated facility on patient's condition and plan of care. Attempted to call facility again this afternoon to get more information about patient's dialysis with no answer. Will call facility again tomorrow. CN will continue to follow and is available should any further needs arise. - Natalya Blanco RN 11/08/23 3:48 PM [facility] 11-08-2023 Progress note Formatting of t his note might be different from the original. DISCHARGE PLANNING NOTE Return referral sent to [facility], [facility] Facility in [place] (P# ; F# ) [facility] 11-08-2023 Plan of care note Problem: Safety - Medical Restraint Goal: Remains free of injury from restraints (Restraint for Interference with Major Account Representative) Description: INTERVENTIONS: 1. Determine that other, less restrictive measures have been tried or would not be effective before applying the restraint 2. Evaluate the patient's condition at the time of restraint application 3. Inform patient/family regarding the reason for restraint 4. Q2H: Monitor safety, Vital signs, psychosocial status, signs of injury, skin integrity, circulation, neurovascular status in affected extremities, respiratory status, comfort, nutrition and hydration, hygiene, ROM, elimination needs 5. Doctor will be notified of restraint 6. RN properly applies restraints per physician order Outcome: Progressing Note: Evaluation of progress towards goal: [facility] 11-08-2023 Progress note Formatting of t his note is different from the original. Physical Therapy CANCEL - Deferred Hold PT eval as pt is scheduled for ortho surgery today. [facility] 11-08-2023 Consult note Associated Order (s): IP CONSULT TO NEPHROLOGY Reason for Consult: End stage renal disease. Requesting Physician: Wander Arias DO Assessment: End-stage renal disease previously on a Tuesday through Tuesday schedule at [facility], will maintain her on a MWF schedule while in the hospital. Hyponatremia. Hyperkalemia. Hypomagnesemia. Hyperphosphatemia. Anasarca. Hypotension. Anemia. Plan: Will give iv Albumin x 1 today and start oral Midodrine. Monitor blood pressure. Continue daily Lokelma. Will start low dose magnesium oxide. We will follow phosphorus level and adjust binders as needed. We will follow H&H and start erythropoeitin stimulating agent as needed. NPO now. Place on renal TF with fluid restriction of 1000 ml/24 hours once allowed to eat. Acid Base status stable and at target. K and Phos at target. We will follow up chemistries. Avoid Lovenox and Fleets enema. We will continue dialysis on MWF schedule. Thank you for the consultation. Please do not hesitate to contact us for any further questions/concerns. We will continue to follow along with you. HISTORY OF PRESENT ILLNESS: This is a 57 y.o. lady who has end-stage renal disease on hemodialysis, she receives dialysis [address] [facility] under the care of Dr. Fitzgerald. She apparently rolled out of bed to the floor. She has a distal L femur fracture. The patient has chronic tracheostomy tube and requires ventilator support chronically Review Of Systems: Unable to obtain. Past Medical History: Diagnosis Date Anemia CHF (congestive heart failure) ([facility]) Diabetes ([facility]) Morbid obesity ([facility] NSTEMI (non-ST elevated myocardial infarction) ([facility]) Respiratory failure ([facility]) Past Surgical History: Procedure Laterality Date TRACHEOSTOMY Prior to Admission medications Medication Sig Start Date End Date Taking? Authorizing Provider acetaminophen (TYLENOL) 325 mg tablet Take 2 tablets (650 mg total) by mouth every 6 (six) hours as needed for fever. Yes Not In System Ref Prov albuterol (PROVENTIL,VENTOLIN) 2.5 mg /3 mL (0.083 %) nebulizer solution Inhale 3 mL (2.5 mg total) by nebulization every 4 (four) hours as needed for shortness of breath. Yes Not In System Ref Prov ALPRAZolam (XANAX) 0.5 mg tablet Take 1 tablet (0.5 mg total) by mouth in the morning and 1 tablet (0.5 mg total) before bedtime. Yes Not In System Ref Prov ALPRAZolam (XANAX) 1 mg tablet Take 1 tablet (1 mg total) by mouth in the morning and 1 tablet (1 mg total) before bedtime. Indications: anxious. Yes Not In System Ref Prov aspirin 81 mg Take 1 tablet (81 mg total) by mouth in the morning. Yes Not In System Ref Prov atorvastatin (LIPITOR) 20 mg tablet Take 1 tablet (20 mg total) by mouth in the morning. Yes Not In System Ref Prov bumetanide (BUMEX) 1 mg tablet Take 2 tablets (2 mg total) by mouth daily. Yes Not In System Ref Prov busPIRone (BUSPAR) 10 mg tablet Take 1 tablet (10 mg total) by mouth in the morning and 1 tablet (10 mg total) before bedtime. Yes Not In System Ref Prov busPIRone (BUSPAR) 7.5 mg tablet Take 1 tablet (7.5 mg total) by mouth in the morning. Yes Not In System Ref Prov cholecalciferol (VITAMIN D3) 1,000 units tablet Take 2 tablets (2,000 Units total) by mouth in the morning. Indications: low vitamin D levels. Yes Not In System Ref Prov cyclobenzaprine (FLEXERIL) 5 mg tablet Take 2 tablets (10 mg total) by mouth every 6 (six) hours. Yes Not In System Ref Prov dicyclomine (BENTYL) 10 mg capsule Take 1 capsule (10 mg total) by mouth 3 (three) times a day. Yes Not In System Ref Prov epoetin beta, methoxy peg (MIRCERA) 75 mcg/0.3 mL syringe Inject 75 mcg as directed every 14 (fourteen) days. Yes Not In System Ref Prov FLUoxetine (PROzac) 20 mg capsule Take 30 mg by mouth in the morning. Yes Not In System Ref Prov folic acid-B gjpd-I-xnpfv-zinc (DIALYVITE) 3-70-15 mg-mcg-mg tablet Take 1 tablet by mouth in the evening. Yes Not In System Ref Prov gabapentin (NEURONTIN) 100 mg capsule Take 1 capsule (100 mg total) by mouth 3 (three) times a day. Yes Not In System Ref Prov insulin glargine (LANTUS, BASAGLAR) 100 unit/mL (3 mL) insulin pen Inject 20 Units under the skin in the morning and 20 Units in the evening. Inject before meals. Patient taking differently: Inject 32 Units under the skin in the morning and 32 Units in the evening. Inject before meals. 11/11/22 Yes Annette Romero MD insulin lispro (HumaLOG) 100 unit/mL insulin pen [...] For glucose 351-400 mg/dL, give 10 units. 11/11/22 Yes Annette Romero MD insulin lispro (HumaLOG) 100 unit/mL insulin pen Inject 2-8 Units under the skin nightly. Bedtime hyperglycemia dosing. For glucose 201-250 mg/dL, give 2 units. For glucose 251-300 mg/dL, give 4 units. For glucose 301-350 mg/dL, give 6 units. For glucose 351-400 mg/dL, give 8 units. 11/11/22 Yes Annette Romero MD lacosamide (VIMPAT) 100 mg tablet Take 0.5 tablets (50 mg total) by mouth in the morning and 0.5 tablets (50 mg total) before bedtime. Yes Not In System Ref Prov levETIRAcetam (KEPPRA) 1000 mg tablet Take 0.5 tablets (500 mg total) by mouth 3 (three) times a day. Yes Not In System Ref Prov levothyroxine (SYNTHROID, LEVOTHROID) 175 MCG tablet Take 1 tablet (175 mcg total) by mouth in the morning. Yes Not In System Ref Prov midodrine (PROAMATINE) 10 mg tablet Take 1 tablet (10 mg total) by mouth as needed (Hemodialysis - PRN at initiation and midway through dialysis session). 11/11/22 Yes Annette Romero MD naloxone (NARCAN) 4 mg/actuation spray,non-aerosol nasal spray Administer 1 spray (4 mg total) into alternating nostrils as needed for opioid reversal. 11/11/22 Yes Annette Romero MD ondansetron (ZOFRAN) 4 mg tablet Take 1 tablet (4 mg total) by mouth every 6 (six) hours as needed for nausea or vomiting. Yes Not In System Ref Prov oxycodone HCl (OXYCODONE ORAL) Take 5 mg by mouth every 6 (six) hours as needed. Yes Not In System Ref Prov pantoprazole (PROTONIX) 40 mg EC tablet Take 1 tablet (40 mg total) by mouth in the morning. Yes Not In System Ref Prov polyethylene glycol (GLYCOLAX) 17 gram/dose powder Take 17 g by mouth in the morning. Yes Not In System Ref Prov potassium chloride (KLOR-CON M 20) 20 MEQ CR tablet Take 1 tablet (20 mEq total) by mouth in the morning. Yes Not In System Ref Prov risperiDONE (RisperDAL) 1 mg tablet Take 1 tablet (1 mg total) by mouth in the morning. Yes Not In System Ref Prov sennosides-docusate sodium (SENOKOT-S) 8.6-50 mg Take 1 tablet by mouth every 12 (twelve) hours as needed for constipation. Patient taking differently: Take 1 tablet by mouth once daily at bedtime. 11/11/22 Yes Annette Romero MD sevelamer (RENVELA) 800 mg tablet Take 4 tablets (3,200 mg total) by mouth in the morning and 4 tablets (3,200 mg total) at noon and 4 tablets (3,200 mg total) in the evening. Take with meals. Yes Not In System Ref Prov albuterol (ACCUNEB) 0.63 mg/3 mL nebulizer solution Inhale 3 mL (0.63 mg total) by nebulization every 6 (six) hours as needed for wheezing. Not In System Ref Prov predniSONE (DELTASONE) 20 mg tablet Take 1 tablet (20 mg total) by mouth in the morning. Patient not taking: Reported on 11/07/2023 Not In System Ref Prov Scheduled Meds: acetaminophen, 1,000 mg, oral, Q6H YOLA atorvastatin, 20 mg, oral, Daily chlorhexidine, 15 mL, mouth/throat, BID cyclobenzaprine, 5 mg, oral, TID famotidine, 20 mg, intravenous, Q48H FLUoxetine, 30 mg, oral, Daily insulin lispro, 2-10 Units, subcutaneous, Q6H lacosamide, 50 mg, oral, BID levETIRAcetam, 500 mg, oral, TID levothyroxine, 175 mcg, oral, Daily magnesium oxide, 400 mg, oral, Daily risperiDONE, 1 mg, oral, Daily sennosides-docusate sodium, 2 tablet, oral, Nightly sevelamer, 3,200 mg, oral, TID with meals sodium chloride, 10 mL, intravenous, Q96H sodium chloride, 10 mL, intravenous, Q96H sodium chloride, 3 mL, intravenous, Q12H YOLA sodium citrate, 2 mL, intravenous, Q96H sodium citrate, 2 mL, intravenous, Q96H sodium zirconium cyclosilicate, 10 g, oral, Daily with lunch Continuous Infusions: dextrose 5 % in water, 100 mL/hr sodium chloride 0.9 %, 3 mL/hr, Last Rate: 3 mL/hr (11/08/23 6941) PRN Meds: albuterol dextrose dextrose 5 % in water dextrose 50 % in water (D50W) dextrose 50 % in water (D50W) glucagon (human recombinant) magnesium sulfate OR magnesium sulfate midodrine ondansetron oxyCODONE AND oxyCODONE potassium chloride OR potassium chloride potassium chloride in water OR potassium chloride in water sodium phosphate IV OR sodium phosphate IV - central line OR sod phos di, mono-K phos mono sodium chloride sodium chloride sodium chloride sodium chloride sodium chloride sodium citrate sodium citrate Allergies Allergen Reactions Iodinated Contrast Media Shortness Of Breath Morphine Shortness Of Breath Fentanyl Patient gets burning and abdominal cramps Gadolinium-Containing Contrast Media Zosyn [Piperacillin-Tazobactam] Social History Socioeconomic History Marital status: Spouse name: Not on file Number of children: Not on file Years of education: Not on file Highest education level: Not on file Occupational History Not on file Tobacco Use Smoking status: Never Smokeless tobacco: Never Vaping Use Vaping status: Never Used Substance and Sexual Activity Alcohol use: Not Currently Drug use: Never Sexual activity: Defer Other Topics Concern Caffeine Use Yes Social History Narrative Not on file Social Determinants of Health Financial Resource Strain: Not on file Food Insecurity: No Food Insecurity (11/07/2023) Hunger Screening Food Insecurity - Worry: Never True Food Insecurity - Inability: Never True Transportation Needs: No Transportation Needs (11/07/2023) PRAPARE - Transportation Lack of Transportation (Medical): No Lack of Transportation (Non-Medical): No Physical Activity: Inactive (09/14/2023) Received from [facility] Exercise Vital Sign Days of Exercise per Week: 0 days Minutes of Exercise per Session: 0 min Stress: No Stress Concern Present (09/14/2023) Received from [facility] [place] of Occupational Health - Occupational Stress Questionnaire Feeling of Stress : Not at all Social Connections: Not on file Interpersonal Safety: Not At Risk (11/07/2023) Humiliation, Afraid, Rape, and Kick questionnaire Fear of Current or Ex-Partner: No Emotionally Abused: No Physically Abused: No Sexually Abused: No Housing Instability: Low Risk (11/07/2023) Housing Instability Housing Instability: No History reviewed. No pertinent family history. Physical Exam: Vitals: 11/08/23 0900 11/08/23 0915 11/08/23 1000 11/08/23 1100 BP: 99/65 98/49 Pulse: 114 110 114 113 Resp: 22 Temp: 36.8 C (98.2 F) TempSrc: Oral SpO2: 97% 97% 95% 97% Weight: Height: I/O last 3 completed shifts: In: 360 [I.V.:360] Out: 1820 [Other:1820] General: Awake, alert, not in distress. Appears to be stated age. HEENT: Atraumatic, normocephalic. Anicteric sclera. [place] and moist oral mucosa. No carotid bruit. No JVD. Chest: Bilateral air entry, clear to auscultation, no wheezing, rhonchi or rales. Cardiovascular: RRR, S1S2, no murmur, rub or gallop. Has lower extremity edema. Abdomen: Soft, non tender to palpation. Active bowel sounds x 4 quadrants. Musculoskeletal: Active ROM x 4 extremities. No cyanosis or clubbing. Integumentary: [place], warm and dry. Free from rash or lesions. Skin turgor normal. FLIGHT TECHNICIAN: Oriented to person, place and time. Speech clear. Face symmetrical. No tremor. Data: CBC: Lab Results Component Value Date WBC 7.1 11/08/2023 HGB 10.6 (L) 11/08/2023 HCT 32.7 (L) 11/08/2023 MCV 98 11/08/2023 PLT 94 (L) 11/08/2023 BMP: Lab Results Component Value Date K 4.5 11/08/2023 K 5.2 (H) 11/07/2023 K 5.7 (H) 11/07/2023 CL 97 (L) 11/08/2023 CL 92 (L) 11/07/2023 CL 91 (L) 11/07/2023 CO2 22 11/08/2023 CO2 22 11/07/2023 CO2 22 11/07/2023 BUN 44 (H) 11/08/2023 BUN 69 (H) 11/07/2023 BUN 74 (H) 11/07/2023 CREATININE 4.31 (H) 11/08/2023 CREATININE 5.26 (H) 11/07/2023 CREATININE 5.85 (H) 11/07/2023 CMP: Lab Results Component Value Date K 4.5 11/08/2023 CL 97 (L) 11/08/2023 CO2 22 11/08/2023 BUN 44 (H) 11/08/2023 CREATININE 4.31 (H) 11/08/2023 CALCIUM 8.9 11/08/2023 ALKPHOS 182 (H) 11/07/2023 AST 11 11/07/2023 ALT 15 11/07/2023 Hepatic: Lab Results Component Value Date AST 11 11/07/2023 AST 11 11/07/2023 AST 19 07/17/2023 ALT 15 11/07/2023 ALT 18 11/07/2023 ALT 28 07/17/2023 ALKPHOS 182 (H) 11/07/2023 ALKPHOS 210 (H) 11/07/2023 ALKPHOS 141 (H) 07/17/2023 BNP: Lab Results Component Value Date BNP 101 (H) 07/17/2023 BNP 170 (H) 09/12/2022 BNP 202 (H) 08/19/2022 Lipids: Lab Results Component Value Date CHOL 95 (L) 09/30/2023 HDL 32 (L) 09/30/2023 INR: Lab Results Component Value Date INR 1.0 11/07/2023 INR 1.0 11/07/2023 INR 1.1 07/17/2023 PTH: No results found for: PTH Phosphorus: No results found for: PHOS Ionized Calcium: No components found for: IONCA Magnesium: Lab Results Component Value Date MG 1.7 (L) 11/08/2023 Albumin: No components found for: LABALBU Last 3 CK, CKMB, Troponin: URINE:)No results found for: NAUR , PROTUR Radiology: Reviewed. - Calin Randall MD 11/08/23 12:36 PM [employer] 11-08-2023 Consult note Formatting of th is note might be different from the original. Patient is followed with Dr. Fitzgerald, I will change the consult SIRISHA DÍAZ MD [facility] ANY QUESTIONS FEEL FREE TO CALL: 1. OFFICE [phone] 2. ANSWERING SERVICE: .[phone] [employer] Work Phone: 11-08-2023 Plan of care note Problem: Alternate Airway Goal: Tracheotomy/laryngectomy will be maintained safely Description: INTERVENTIONS 1. Keep resuscitation bag, mask, oxygen connection tubing, and extra tracheostomy at bedside; accompanying patient at all times 2. Obturator in plastic bag, readily available at bedside 3. Assess trach site 4. Utilize trach securing device and change as needed per policy 5. Support tubing to avoid pressure from drag of tubing 6. Provide trach care at least every 8 hrs and as needed 7. Change tracheostomy/inner cannula per policy as needed Outcome: Progressing Note: Respiratory Therapy Clinical Practice Guidelines Consult Clinical Practice Guidelines Ordered Consult Assessment: Consult, Broncho-pulmonary hygiene, Bronchodilator Broncho-pulmonary Hygiene Indications: Retained secretions or difficulty with clearance Broncho-pulmonary Hygiene Total: 1 Bronchodilator Indications: Bronchospasm/wheezing Bronchodilator Total: 1 Vital Signs FiO2 (%): 40 % EtCO2 (mmHg): 45 mmHg ETCO2 Alarm - High: 50 ETCO2 Alarm - Low: 20 Respiratory Assessment Assessment Type: Subsequent assessment Level of Consciousness: Alert Respiratory Pattern: Regular Chest Assessment: Chest expansion symmetrical Bilateral Breath Sounds: Clear, Diminished Airway Suctioning/Secretions Airway Suction Type: Tracheal Airway Suction Device : Inline Airway Secretion Amount: Small Airway Secretion Color: Yellow Readings Vt Spontaneous (mL): 680 mL Minute Ventilation (L/min): 2.32 L/min PIP Observed (cm H2O): 7 cm H2O Total Rate : 9 MAP (cm H2O): 12 CM H20 EtCO2 (mmHg): 45 mmHg Dynamic Compliance (L/cm H2O): 0.2 L/cm H2O Patient Active Problem List Diagnosis Dyspnea NSTEMI (non-ST elevated myocardial infarction) ([facility]) Infected prosthetic mesh of abdominal wall ([facility]) Morbid obesity ([facility]) End stage renal disease ([facility]) Ventilator dependence ([facility]) Coronary artery disease Diabetes 1.5, 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 * (not in an exacerbation) Patients Current Level & Intervention: Level 1: No BP hygiene indicated. Continue suctioning every 4 hours Intervention Mode Selected: ----- Mechanical Ventilator Bronchodilator Breath Sounds Level 1: Clear or occasional minimal wheezing Respiratory History Level 1: None Peak Pressures Level 1: Less than 25 cm H2O Peak Minus Plateau Pressure Level 1: 3 cm H2O or less Other Considerations for adventitious breath sounds, elevated peak pressures and peak/plateau difference. Endotracheal tube too small, tube kinked/Foreign body in the lumen Partial cuff herniation Secretions and/or mucus plugging Tracheal malacia or stenosis Patients Current Level & Intervention: 1 Every 4 hours PRN for wheezing E valuation of progress towards goal: Reviewed [facility] 11-08-2023 Progress note Formatting of t his note is different from the original. Occupational Therapy CANCEL - Deferred (pt admit s/p fall [facility] bed at [facility], pt non-ambulatory at baseline. now with femur fx pending surgical intervention this date w/ ortho. cont as able w/ OT eval once pt medically stable from sx.) [facility] 11-07-2023 Plan of care note Problem: Alternate Airway Goal: Tracheotomy/laryngectomy will be maintained safely Description: INTERVENTIONS 1. Keep resuscitation bag, mask, oxygen connection tubing, and extra tracheostomy at bedside; accompanying patient at all times 2. Obturator in plastic bag, readily available at bedside 3. Assess trach site 4. Utilize trach securing device and change as needed per policy 5. Support tubing to avoid pressure from drag of tubing 6. Provide trach care at least every 8 hrs and as needed 7. Change tracheostomy/inner cannula per policy as needed Outcome: Progressing Note: Evaluation of progress towards goal: pt stable Respiratory Therapy Clinical Practice Guidelines Consult Vital Signs BP: 91/59 Pulse: 121 Resp: 17 SpO2: 97 % O2 Device: Trach In-situ FiO2 (%): 40 % EtCO2 (mmHg): 36 mmHg ETCO2 Alarm - High: 50 ETCO2 Alarm - Low: 20 Patient Position: Semi-fowlers Respiratory Assessment Assessment Type: Subsequent assessment Level of Consciousness: Alert Respiratory Pattern: Regular Chest Assessment: Chest expansion symmetrical Bilateral Breath Sounds: Clear, Diminished Suctioning Suction: Oral, Trach Oral Suctioning/Secretions Oral Suction Type: Oral Oral Suction Device: Catheter Oral Secretion Amount: Small Oral Secretion Color: Clear Oral Secretion Consistency: Thin Oral Suction Tolerance: Tolerated well Airway Suctioning/Secretions Airway Suction Type: Tracheal Airway Suction Device : Inline Airway Secretion Amount: Small Airway Secretion Color: Yellow Airway Secretion Consistency: Thick Airway Suction Tolerance: Tolerated well Readings Vt (observed, mL): 0.4 mL Avea Vt Mandatory Exp (L): 0.38 Minute Ventilation (L/min): 7.22 L/min PIP Observed (cm H2O): 13 cm H2O Total Rate : 21 MAP (cm H2O): 11 CM H20 EtCO2 (mmHg): 36 mmHg Plateau Pressure (cm H2O): 19 cm H2O I:E Readin:2.1 Static Compliance (L/cm H2O): 9.31 Dynamic Compliance (L/cm H2O): 82.83 L/cm H2O Patient Active Problem List Diagnosis Dyspnea NSTEMI (non-ST elevated myocardial infarction) ([facility]) Infected prosthetic mesh of abdominal wall ([facility]) Morbid obesity ([facility]) End stage renal disease ([facility]) Ventilator dependence ([facility]) Coronary artery disease Diabetes 1.5, 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 * (not in an exacerbation) Patients Current Level & Intervention: Level 1: No BP hygiene indicated. Continue suctioning every 4 hours Intervention Mode Selected: ----- Mechanical Ventilator Bronchodilator Breath Sounds Level 1: Clear or occasional minimal wheezing Respiratory History Level 1: None Peak Pressures Home Therapy: Patient Baseline Peak Minus Plateau Pressure Home Therapy: NA Other Considerations for adventitious breath sounds, elevated peak pressures and peak/plateau difference. Endotracheal tube too small, tube kinked/Foreign body in the lumen Partial cuff herniation Secretions and/or mucus plugging Tracheal malacia or stenosis Patients Current Level & Intervention: Home Therapy As at home, reconcile orders with home meds if pulmonary status is stable [facility] [employer] 11-07-2023 Procedure note Associated Ord er(s): HEMODIALYSIS INPATIENT Pt completed 3 hr HD tx. Pt tolerated tx fairly. Pt was hypotensive during tx. Called Dr Díaz for tx of hypotension. ordered to not remove any additional fluid. Pt ran consistent at 350 BFR. No medications ordered or given during tx. BP 97/75 HR 117 Post tx wt 153 kg ( Bedscale not working at beginning of tx) Fluid removed. 1.3 L Report given to Primary RN. - Melani Haddad RN 11/07/23 9:33 PM [employer] 11-07-2023 Consult note Associated Order (s): IP CONSULT TO ORTHOPEDIC SURGERY Images from the original note were not included. Chief complaint: left distal femur fracture HPI: Matthew Neal is a 58 y.o. female with Hx of trach and peg, ESRD on dialysis M-F, non-ambulator, presents to [facility] as a transfer from [facility] c/o left knee pain after she fell [facility] earlier today. Patient states that the pain is localized to her left knee/distal femur. Xray reveals a comminuted and impacted distal femur fracture with some displacement. Patient admits to pain localized to left knee. Patient denies pain to left hip, left tib-fib, ankle or foot. Patient denies pain to bilateral upper and right lower extremities. Patient denies numbness or paresthesia to left lower extremity. Patient has no orthopedic history. Patient has no other complaints at this time. Date of injury was earlier this morning. Pain is described as Sharp, localized to her left distal femur. She does not have associated injuries. She is not having any numbness or tingling. Pain is improved with rest, analgesics, and immobilization; and worsened by movement and activity Past Medical History: Diagnosis Date Anemia CHF (congestive heart failure) ([facility]) Diabetes ([facility] Morbid obesity ([facility]) NSTEMI (non-ST elevated myocardial infarction) ([facility]) Respiratory failure ([facility]) Past Surgical History: Procedure Laterality Date TRACHEOSTOMY Social History Tobacco Use Smoking status: Never Smokeless tobacco: Never Vaping Use Vaping status: Never Used Substance Use Topics Alcohol use: Not Currently Drug use: Never History reviewed. No pertinent family history. Allergies as of 11/07/2023 - Reviewed 11/07/2023 Allergen Reaction Noted Iodinated contrast media Shortness Of Breath 08/03/2020 Morphine Shortness Of Breath 08/03/2020 Fentanyl 11/05/2022 Gadolinium-containing contrast media 08/19/2022 Zosyn [piperacillin-tazobactam] 08/19/2022 Current Facility-Administered Medications: acetaminophen (TYLENOL EXTRA STRENGTH) tablet 1,000 mg, 1,000 mg, oral, Q6H YOLA, ROBERT Gross dextrose (GLUTOSE) 40 % gel 15 g, 15 g, oral, PRN, Jagdish Hooper APRN-ИРИНА dextrose 5 % (D5W) infusion, 100 mL/hr, intravenous, Continuous PRN, Jagdish Hooper APRN-ИРИНА dextrose 50 % in water (D50W) 50% solution 25 mL, 25 mL, intravenous, PRN, Jagdish Hooper APRN-ИРИНА dextrose 50 % in water (D50W) 50% solution 25 mL, 25 mL, intravenous, PRN, Jagdish Hooper APRN-ИРИНА famotidine (PF) (PEPCID) injection 20 mg, 20 mg, intravenous, Q48H, Jagdish Hooper APRN-ИРИНА glucagon HCL injection 1 mg, 1 mg, intramuscular, PRN, Jagdish Hooper APRN-ИРИНА magnesium sulfate IVPB 2000 mg/50 mL in iso-osmotic water (40 mg/mL premix), 2,000 mg, intravenous, PRN OR magnesium sulfate IVPB 4000 mg/100 mL in iso-osmotic water (40 mg/mL premix), 4,000 mg, intravenous, PRN, Jagdish Hooper APRN-ИРИНА ondansetron (PF) (ZOFRAN) injection 4 mg, 4 mg, intravenous, Q6H PRN, Jagdish Hooper APRN-ИРИНА oxyCODONE (ROXICODONE) immediate release tablet 5 mg, 5 mg, oral, Q4H PRN AND oxyCODONE (ROXICODONE) immediate release tablet 10 mg, 10 mg, oral, Q4H PRN, Jagdish Hooper APRN-ИРИНА potassium chloride (K-TAB,KLOR-CON) CR tablet 20-50 mEq, 20-50 mEq, oral, PRN OR potassium chloride (KAYCIEL) 20 mEq/15 mL solution 20-50 mEq, 20-50 mEq, oral, PRN, Jagdish Hooper, PILE DRIVER OPERATOR [employer] ENGINEER potassium chloride IVPB 10 mEq/50 mL in water (0.2 mEq/mL premix), 10 mEq, intravenous, PRN OR potassium chloride IVPB 10 mEq/100 mL in water (0.1 mEq/mL premix), 10 mEq, intravenous, PRN, Jagdish Hooper APRN-ИРИНА sennosides-docusate sodium (SENOKOT-S) 8.6-50 mg 2 tablet, 2 tablet, oral, Nightly, aJgdish Hooper APRN-ИРИНА sodium phosphate 20 mmol in sodium chloride 0.9 % 250 mL IVPB, 20 mmol, intravenous, PRN OR sodium phosphate 20 mmol in sodium chloride 0.9 % 100 mL IVPB, 20 mmol, intravenous, PRN OR sod phos di, mono-K phos mono (K-PHOS NEUTRAL) 250 mg tablet 2 tablet, 2 tablet, oral, PRN, Jagdish Hooper APRN-ИРИНА sodium chloride 0.9 % flush 3 mL, 3 mL, intravenous, PRN, Jagdish Hooper, PILE DRIVER OPERATOR [employer] SOFTWARE ENGINEER sodium chloride 0.9 % flush 3 mL, 3 mL, intravenous, Q12H YOLA, Jagdish Hooper APRN-ИРИНА REVIEW OF SYSTEMS: MSK: Left distal femur fracture, Neuro: Negative for numbness or tingling, All other ROS negative other than what is stated above in HPI (10 systems reviewed). PHYSICAL EXAM: Vitals: BP 106/59 Pulse 113 Temp 36.7 C (98.1 F) (Oral) Resp 13 Ht 152.4 cm (5') SpO2 98% BMI 68.28 kg/m General: Older than stated age and Morbidly Obese LOC: awake and alert Orientation: oriented to person, place, time, and recent events Psych: Pleasant and Cooperative Station: Lying supine on hospital bed HEENT: normocephalic, atraumatic head, neck, & facies, no ecchymosis or abrasions, midline trachea Resp: no respiratory distress, acyanotic, normal RR, breathing easily, nonlabored, no use of accessory muscles Musculoskeletal: Left LE: Skin intact, TTP to distal femur. No TTP to left hip, tib-fib, ankle or foot. SILT s/s/sp/dp/pt, + motor fxn EHL, FHL, DF, PF. Comparments & calves soft and compressible Palpable pulses with BCR x 5. IMAGING: I personally viewed X-ray of left knee and femur - Cursory exam reveals an impacted distal femur fracture with lateral displacement of distal femur. No other acute osseous abnormalities noted. I personally viewed CT of left knee - Cursory exam reveals comminuted distal femoral metaphyseal fracture. No other acute osseous abnormalities noted. Imaging: CT knee left without contrast Result Date: 11/07/2023 Clinical history: Knee trauma. Dislocation. CT left knee without contrast: 11/07/2023 COMPARISON: None PROCEDURE: Axial images were obtained through the knee. Coronal and sagittal reconstructions were performed. All CT scans at this facility use dose modulation, iterative reconstruction, and/or weight based dosing when appropriate to reduce radiation dose to as low as reasonably achievable FINDINGS: There is a comminuted distal femoral fracture which is difficult to characterize due to bone demineralization. This has a transverse component proximal to the condylar level with some impaction. Sagittal plane components appear to extend into the intercondylar region without definite disruption of articular surfaces at the medial and lateral condylar region. Soft tissue swelling is present around the knee with a large suprapatellar effusion/hemarthrosis. There is no patellar injury. The tibial plateau and proximal fibula appear within normal limits with generalized bone demineralization. There is edema within subcutaneous tissues throughout the knee. IMPRESSION: Comminuted distal femoral fracture with extension into the intercondylar portion of the knee. Finalized by Artur Pardo MD on 11/07/2023 4:[address] chest without contrast Result Date: 11/07/2023 Clinical history:Blunt chest trauma. CT chest without contrast:11/07/2023 Comparison: 03/21/2021 Procedure: Axial images were obtained through the chest without intravenous contrast. Coronal and sagittal reconstructions were performed. All CT scans at this facility use dose modulation, iterative reconstruction, and/or weight based dosing when appropriate to reduce radiation dose to as low as reasonably achievable. Findings: Evaluation is inhibited by body habitus. Patchy alveolar opacity and volume loss are present in the left lower lobe, the left upper lobe and the paramediastinal right lower lobe. There is no large pleural effusion or pneumothorax. The heart is enlarged with tracheostomy and central line in place. No acute mediastinal abnormality is present. There is no acute osseous abnormality within the thorax. IMPRESSION: Pulmonary infiltrates may reflect areas of atelectasis or pneumonia. Follow-up to resolution would be required to exclude an underlying abnormality. No definite posttraumatic abnormality within the chest. Finalized by Artur Pardo MD on 11/07/2023 4:[address] abdomen and pelvis without contrast Result Date: 11/07/2023 CLINICAL INFORMATION: Abdominal trauma, blunt. Pain TECHNIQUE: CT Abdomen and Pelvis without intravenous contrast. All CT scans at this facility use dose modulation, iterative reconstruction, and/or weight based dosing when appropriate to reduce radiation dose to as low as reasonably achievable. COMPARISON: 10/25/2023. 01/20/2021 FINDINGS: Left lower lobe consolidation and atelectasis persists. There is no pneumoperitoneum on the visualized portions of the abdomen. Much of the left hemiabdomen including the anterior abdominal wall is not included on this imaging volume due to body habitus. Changes of cholecystectomy again noted. Given limitations of a noncontrast enhanced exam the liver, spleen, right adrenal gland and pancreas appear unremarkable. Limbs of the left adrenal gland remains somewhat thickened particularly the medial limb, however this is unchanged from prior exam dating back to 01/20/2021 favoring a nonaggressive etiology. Renal collecting systems and ureters are not dilated. Dense atherosclerotic aortoiliac and visceral vascular calcifications again seen. Gas-filled yet nondilated colon again noted in the upper abdomen with what appears to be descending colostomy, only partially imaged. Soft tissue stranding throughout the lower anterior abdominal wall and pelvis again noted suggesting cellulitis. There is no intraperitoneal nor retroperitoneal nor anterior abdominal wall drainable fluid collection/abscess. Bilobed shaped left adnexal fluid attenuation structure has been present since at least 01/20/2021 and likely represents a large ovarian cyst. No definite dilated loops of bowel to suggest bowel obstruction. IMPRESSION: 1. Redemonstration of extensive soft tissue stranding throughout the intra-abdominal wall/pelvis most consistent with cellulitis. No fluid collection/abscess. 2. Persistent nonspecific left lower lobe consolidation and atelectasis. 3. Persistent left adnexal cystic lesion. This has been present since at least 2020. Nonaggressive etiology, however it is still nonspecific. 4. No abdominal nor pelvic fluid collections. Finalized by Wander De La Cruz MD on 11/07/2023 4:15 PM X-ray knee left 3 views Result Date: 11/07/2023 3 VIEWS LEFT KNEE HISTORY: Fracture, pain COMPARISON: None IMPRESSION: * Acute comminuted distal left femur fracture with mild impaction and slight lateral displacement of the main distal fracture fragment measuring 1.7 cm. * Diffuse osteopenia. Finalized by Bart Way MD on 11/07/2023 11:58 AM X-ray chest 1 view Result Date: 11/07/2023 CHEST 1 VIEW HISTORY: Dialysis COMPARISON: 07/17/2023 IMPRESSION: * Stable tracheostomy tube and right-sided dialysis catheter. * Persistent extensive opacities throughout the left hemithorax with volume loss, similar to previous study. Right lung is clear. * Unable to evaluate cardiomediastinal silhouette due to significant abnormalities in the left hemithorax. Finalized by Bart Way MD on 11/07/2023 11:57 AM X-ray femur left 2+ views Result Date: 11/07/2023 XR FEMUR LT 2+ VIEWS HISTORY: distal femur fracture COMPARISON: None available. IMPRESSION: Mildly comminuted fracture distal femoral metadiaphysis, with one third shaft's width lateral displacement of the distal fracture fragment and at least 1.6 cm of override. Osteopenia limits evaluation for intra-articular extension, CT could help further clarify. Finalized by Kelvin Wallis on 11/07/2023 11:55 AM LABS: Lab Results Component Value Date WBC 7.4 11/07/2023 HGB 11.5 (L) 11/07/2023 HCT 34.4 (L) 11/07/2023 MCV 97 11/07/2023 PLT 90 (L) 11/07/2023 Lab Results Component Value Date GLU 218 (H) 11/07/2023 CALCIUM 8.9 11/07/2023 K 5.7 (H) 11/07/2023 CO2 22 11/07/2023 BUN 74 (H) 11/07/2023 CREATININE 5.85 (H) 11/07/2023 No results found for: VITD25 Lab Results Component Value Date INR 1.0 11/07/2023 INR 1.0 11/07/2023 INR 1.1 07/17/2023 PROTIME 11.7 11/07/2023 PROTIME 12.2 11/07/2023 PROTIME 12.4 07/17/2023 DIAGNOSIS: 1) Matthew Neal is a 58 y.o. female with left closed distal femur fracture ASSESSMENT/PLAN: Patient d/w Dr. Vasquez. Plan for operative stabilization of left distal femur fracture tomorrow, 11/07 Patient to remain NWB left lower extremity at all times. In knee immobilizer Trauma to admit Ice and elevation of affected extremity at all times. N/V checks - per protocol Pain control - per primary DVT Prophylaxis - hold until POD # 1 Discussed plan with patient. Will call family to get consent. Dr. Vasquez to see in the morning. RJ Geiger PA 11/08/23 0033 [employer] Work Phone: 11-07-2023 Consult note Formatting of th is note is different from the original. SICU Academic Critical Care Consultation Name: Matthew Neal Date: 11/07/2023 Length of Stay: 0 day(s) Chief Complaint: Fall, left leg injury History of Present Illness: Matthew Neal is a 58 y.o. female with PMH of NSTEMI, diabetes, congestive heart failure, end-stage renal disease s/p tunneled cath, and respiratory failure s/p tracheostomy who presents from OSH with left leg injury. Patient reportedly fell out of bed at LTAC she resides at and rolled her left leg. She immediately began experiencing pain and swelling over left leg. Denies head injury or LOC. Not currently anticoagulated. Past Medical History: Diagnosis Date Anemia CHF (congestive heart failure) ([facility]) Diabetes ([facility]) Morbid obesity ([facility]) NSTEMI (non-ST elevated myocardial infarction) ([facility]) Respiratory failure ([facility]) Past Surgical History: Procedure Laterality Date TRACHEOSTOMY ROS Positive findings checked Constitutional: []fever, []chills, []fatigue, []unplanned weight change. HEENT: []head pain, []hearing changes, []vision changes, []sneezing, []sore throat. Neck: [] masses, []swelling, []pain. Respiratory: []cough, []shortness of breath. Cardiovascular: []chest pain, []palpitations. Gastrointestinal: []abdominal pain, []nausea, []vomiting, []diarrhea, []constipation, []hematochezia, []melena . Genitourinary: []dysuria,[] urgency, []change in frequency,[] hematuria. Endocrine: [] heat intolerance, []cold intolerance. Musculoskeletal: []myalgias, [x] L leg pain, [x]swelling. Neurological: []dizziness, []ight-headedness, []weakness, []numbness, []tingling. Skin: []color change, []easy bruising, []rashes, []new lesions. Immunologic: []adenopathy, []environmental allergies, []food allergies. Psychiatric: []anxiety, []sleep disturbance. Medications Prior to Admission Medication Sig Dispense Refill Last Dose acetaminophen (TYLENOL) 325 mg tablet Take 2 tablets (650 mg total) by mouth every 6 (six) hours as needed for fever. Other - as prescribed albuterol (PROVENTIL,VENTOLIN) 2.5 mg /3 mL (0.083 %) nebulizer solution Inhale 3 mL (2.5 mg total) by nebulization every 4 (four) hours as needed for shortness of breath. Other - as prescribed ALPRAZolam (XANAX) 0.5 mg tablet Take 1 tablet (0.5 mg total) by mouth in the morning and 1 tablet (0.5 mg total) before bedtime. ALPRAZolam (XANAX) 1 mg tablet Take 1 tablet (1 mg total) by mouth in the morning and 1 tablet (1 mg total) before bedtime. Indications: anxious. aspirin 81 mg Take 1 tablet (81 mg total) by mouth in the morning. atorvastatin (LIPITOR) 20 mg tablet Take 1 tablet (20 mg total) by mouth in the morning. bumetanide (BUMEX) 1 mg tablet Take 2 tablets (2 mg total) by mouth daily. busPIRone (BUSPAR) 10 mg tablet Take 1 tablet (10 mg total) by mouth in the morning and 1 tablet (10 mg total) before bedtime. busPIRone (BUSPAR) 7.5 mg tablet Take 1 tablet (7.5 mg total) by mouth in the morning. cholecalciferol (VITAMIN D3) 1,000 units tablet Take 2 tablets (2,000 Units total) by mouth in the morning. Indications: low vitamin D levels. cyclobenzaprine (FLEXERIL) 5 mg tablet Take 2 tablets (10 mg total) by mouth every 6 (six) hours. Other - as prescribed dicyclomine (BENTYL) 10 mg capsule Take 1 capsule (10 mg total) by mouth 3 (three) times a day. epoetin beta, methoxy peg (MIRCERA) 75 mcg/0.3 mL syringe Inject 75 mcg as directed every 14 (fourteen) days. FLUoxetine (PROzac) 20 mg capsule Take 30 mg by mouth in the morning. folic acid-B jojn-S-qrvkm-zinc (DIALYVITE) 3-70-15 mg-mcg-mg tablet Take 1 tablet by mouth in the evening. gabapentin (NEURONTIN) 100 mg capsule Take 1 capsule (100 mg total) by mouth 3 (three) times a day. insulin glargine (LANTUS, BASAGLAR) 100 unit/mL (3 mL) insulin pen Inject 20 Units under the skin in the morning and 20 Units in the evening. Inject before meals. (Patient taking differently: Inject 32 Units under the skin in the morning and 32 Units in the evening. Inject before meals.) 15 mL 12 insulin lispro (HumaLOG) 100 unit/mL insulin pen [...] mg/dL, give 10 units. 15 mL 12 insulin lispro (HumaLOG) 100 unit/mL insulin pen Inject 2-8 Units under the skin nightly. Bedtime hyperglycemia dosing. For glucose 201-250 mg/dL, give 2 units. For glucose 251-300 mg/dL, give 4 units. For glucose 301-350 mg/dL, give 6 units. For glucose 351-400 mg/dL, give 8 units. 15 mL 12 lacosamide (VIMPAT) 100 mg tablet Take 0.5 tablets (50 mg total) by mouth in the morning and 0.5 tablets (50 mg total) before bedtime. levETIRAcetam (KEPPRA) 1000 mg tablet Take 0.5 tablets (500 mg total) by mouth 3 (three) times a day. levothyroxine (SYNTHROID, LEVOTHROID) 175 MCG tablet Take 1 tablet (175 mcg total) by mouth in the morning. midodrine (PROAMATINE) 10 mg tablet Take 1 tablet (10 mg total) by mouth as needed (Hemodialysis - PRN at initiation and midway through dialysis session). 90 tablet 3 Other - as prescribed naloxone (NARCAN) 4 mg/actuation spray,non-aerosol nasal spray Administer 1 spray (4 mg total) into alternating nostrils as needed for opioid reversal. 3 each 3 Other - as prescribed ondansetron (ZOFRAN) 4 mg tablet Take 1 tablet (4 mg total) by mouth every 6 (six) hours as needed for nausea or vomiting. Other - as prescribed oxycodone HCl (OXYCODONE ORAL) Take 5 mg by mouth every 6 (six) hours as needed. Other - as prescribed pantoprazole (PROTONIX) 40 mg EC tablet Take 1 tablet (40 mg total) by mouth in the morning. polyethylene glycol (GLYCOLAX) 17 gram/dose powder Take 17 g by mouth in the morning. potassium chloride (KLOR-CON M 20) 20 MEQ CR tablet Take 1 tablet (20 mEq total) by mouth in the morning. risperiDONE (RisperDAL) 1 mg tablet Take 1 tablet (1 mg total) by mouth in the morning. sennosides-docusate sodium (SENOKOT-S) 8.6-50 mg Take 1 tablet by mouth every 12 (twelve) hours as needed for constipation. (Patient taking differently: Take 1 tablet by mouth once daily at bedtime.) 60 tablet 3 sevelamer (RENVELA) 800 mg tablet Take 4 tablets (3,200 mg total) by mouth in the morning and 4 tablets (3,200 mg total) at noon and 4 tablets (3,200 mg total) in the evening. Take with meals. albuterol (ACCUNEB) 0.63 mg/3 mL nebulizer solution Inhale 3 mL (0.63 mg total) by nebulization every 6 (six) hours as needed for wheezing. predniSONE (DELTASONE) 20 mg tablet Take 1 tablet (20 mg total) by mouth in the morning. (Patient not taking: Reported on 11/07/2023) Unknown acetaminophen, 1,000 mg, oral, Q6H YOLA famotidine, 20 mg, intravenous, Q48H sennosides-docusate sodium, 2 tablet, oral, Nightly sodium chloride, 10 mL, intravenous, Q96H sodium chloride, 10 mL, intravenous, Q96H sodium chloride, 3 mL, intravenous, Q12H YOLA sodium citrate, 2 mL, intravenous, Q96H sodium citrate, 2 mL, intravenous, Q96H sodium zirconium cyclosilicate, 10 g, oral, Daily with lunch dextrose 5 % in water, 100 mL/hr Allergies Allergen Reactions Iodinated Contrast Media Shortness Of Breath Morphine Shortness Of Breath Fentanyl Patient gets burning and abdominal cramps Gadolinium-Containing Contrast Media Zosyn [Piperacillin-Tazobactam] History reviewed. No pertinent family history. Social History Socioeconomic History Marital status: Tobacco Use Smoking status: Never Smokeless tobacco: Never Vaping Use Vaping status: Never Used Substance and Sexual Activity Alcohol use: Not Currently Drug use: Never Sexual activity: Defer Other Topics Concern Caffeine Use Yes Social Determinants of Health Food Insecurity: No Food Insecurity (11/07/2023) Hunger Screening Food Insecurity - Worry: Never True Food Insecurity - Inability: Never True Transportation Needs: No Transportation Needs (11/07/2023) PRAPARE - Transportation Lack of Transportation (Medical): No Lack of Transportation (Non-Medical): No Physical Activity: Inactive (09/14/2023) Received from [facility] Exercise Vital Sign Days of Exercise per Week: 0 days Minutes of Exercise per Session: 0 min Stress: No Stress Concern Present (09/14/2023) Received from [facility] [employer] [place] [employer] - Occupational Stress Questionnaire Feeling of Stress : Not at all Interpersonal Safety: Not At Risk (11/07/2023) Humiliation, Afraid, Rape, and Kick questionnaire Fear of Current or Ex-Partner: No Emotionally Abused: No Physically Abused: No Sexually Abused: No Housing Instability: Low Risk (11/07/2023) Housing Instability Housing Instability: No Temp: [36.3 C (97.4 F)-36.9 C (98.4 F)] 36.7 C (98.1 F) Pulse: [108-116] 113 Resp: [13-20] 18 BP: (106-133)/(59-92) 122/92 FiO2 (%): [40 %] 40 % SpO2: [96 %-100 %] 96 % O2 Device: Trach In-situ O2 Device: Trach In-situ Physical Exam General: Awake, alert and oriented x3, in no acute distress HENT: Head atraumatic, normocephalic, external ears and nose are normal Eyes: Conjunctivae clear, non-icteric, EOMI Pulmonary: Regular, non-labored respirations, tracheostomy Cardiovascular: Regular rate and rhythm, radial pulses 2+, moderately edematous b/l lower extremities Abdomen: Soft, non-tender, non-distended, obese abdomen Musculoskeletal: Limited ROM L lower extremity, R lower extremity normal ROM without obvious deformity Neurological: No gross neurologic deficit, sensation grossly intact Skin: Warm, dry, without jaundice Ventilator Settings Vent Mode: PRVC-AC FiO2 (%): 40 % Resp Rate (Set): 18 Vt (Set, mL): 400 mL Avea Vt (Set, L): 0.4 Liter PEEP/CPAP (cm H2O): 8 cm H20 Insp Time (sec): 1 sec Trigger Sensitivity Flow (L/min): 1 L/min Trigger Sensitivity Pressure (cm H2O): 3 cm H2O Humidification: Heater Heater Temperature: 37 C (98.6 F) Results from last 3 days Lab Units 11/07/23 1510 11/07/23 1115 BUN mg/dL 74* 78* CREATININE mg/dL 5.85* 5.72* POTASSIUM mmol/L 5.7* 5.7* CO2 mmol/L 22 22 CHLORIDE mmol/L 91* 89* MAGNESIUM mg/dL -- 1.8 AST U/L 11 -- ALT U/L 18 -- ALK PHOS U/L 210* -- Results from last 3 days Lab Units 11/07/23 1510 11/07/23 1115 INR 1.0 1.0 PROTIME sec 11.7 12.2 Results from last 3 days Lab Units 11/07/23 1510 11/07/23 1115 WBC X10E9/L 7.4 7.7 HEMOGLOBIN g/dL 11.5* 11.4* HEMATOCRIT % 34.4* 35.4 PLATELETS X10E9/L 90* 105* MCV fL 97 98 MCH pg 32.6 31.7 MCHC g/dL 33.5 32.2 RDW % 15.9* 15.9* EOS ABS AUTO X10E9/L 0.1 0.2 Microbiology Results Procedure Component Value Units Date/Time Urine culture [[id number]] Collected: 11/07/23 122 Specimen: Urine Updated: 11/07/23 1515 Glucose Results from last 7 days Lab Units 11/07/23 1510 11/07/23 1332 11/07/23 1115 BEDSIDE GLUCOSE mg/dL -- 263* -- GLUCOSE mg/dL 218* -- 255* No intake/output data recorded. acetaminophen, 1,000 mg, oral, Q6H YOLA famotidine, 20 mg, intravenous, Q48H sennosides-docusate sodium, 2 tablet, oral, Nightly sodium chloride, 10 mL, intravenous, Q96H sodium chloride, 10 mL, intravenous, Q96H sodium chloride, 3 mL, intravenous, Q12H YOLA sodium citrate, 2 mL, intravenous, Q96H sodium citrate, 2 mL, intravenous, Q96H sodium zirconium cyclosilicate, 10 g, oral, Daily with lunch dextrose 5 % in water, 100 mL/hr Microbiology Results Procedure Component Value Units Date/Time Urine culture [[id number]] Collected: 11/07/23 1226 Specimen: Urine Updated: 11/07/23 151 Lines/Drains PICC Single Lumen 08/03/20 (Active) Hemodialysis Catheter Double Cuffed Right Internal Jugular (Active) Hemodialysis Catheter Triple 10/03/22 Cuffed Right Subclavian (Active) Peripheral IV 11/07/23 Left Antecubital (Active) Line Status Blood return noted;Flushed;Saline locked 11/07/23 1229 Site Assessment Clean;Dry;Intact 11/07/23 1229 Dressing Type Transparent 11/07/23 1229 Dressing Status Clean;Dry;Intact 11/07/23 1229 Urinary Catheter 11/07/23 Single lumen (Active) Catheter Status Patent 11/07/23 1238 Site Assessment Clean;Skin intact 11/07/23 1238 Collection Container Standard drainage bag/container 11/07/23 1238 Securement Method Securing device (Describe) 11/07/23 1238 Reason for Continuing Physician order 11/07/23 1238 Urine Color Yellow/straw 11/07/23 1238 Urine Appearance Cloudy;Sediment;Mucous 11/07/23 1238 Surgical Airway 12/11/20 Shiley Cuffed 6 (Active) Surgical Airway Cuffed 6 (Active) Surgical Airway Shiley Cuffed 6 (Active) Surgical Airway 11/07/23 Shiley Cuffed 6 (Active) Status Secured 11/07/23 1458 Site Assessment Clean;Dry 11/07/23 1458 Ties Assessment Intact;Dry;Clean 11/07/23 1112 Emergency Equipment at Bedside Bag and mask;Suction 11/07/23 1458 ACTIVE PROBLEM LIST: Left distal femur fracture s/p fall ESRD Ventilator dependence Chronic abdominal wound with possible cellulitis Type 1 DM CAD ASSESSMENT/PLAN: Matthew Neal is a 58 y.o. female Presenting from LTAC with left femur fracture s/p fall rom bed. Chronic trach and daily dialysis dependant. 1. Neuro Hospital Meds: Sedation: none Analgesia: Tylenol, Oxycodone Other: PMH: Anxiety, depression Home Meds: Tylenol, alprazolam, buspirone,prozac, gabapentin, vimpat, midodrine, keppra, narcan, oxycodone, risperidone, flexeril PSH: 2. Cardiovascular Hemodynamics: Tachycardic rate, regular rhythm Normotensive Pressors: none Goal MAP >65 Continuous cardiac monitoring Hospital Meds: PMH: NSTEMI, CAD, CHF Home Meds: Aspirin, atorvastatin PSH: Code Status: Full 3. Pulmonary Breathing Support: Ventilator Settings: PRVC, FiO2 40%, PEEP 8, RR 18 SpO2: 96% Continuous pulse oximetry Hospital Meds: PMH: COPD, Respiratory failure s/p tracheotomy Home Meds: Albuterol PSH: Surgical airway creation 4. 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 Renal/Genitourinary End stage renal disease Daily dialysis; patient has tunneled catheter Dr. Leal consulted; dialysis orders placed Electrolytes: Results from last 3 days Lab Units 11/07/23 1510 11/07/23 1115 SODIUM mmol/L 128* 127* CHLORIDE mmol/L 91* 89* POTASSIUM mmol/L 5.7* 5.7* CO2 mmol/L 22 22 BUN mg/dL 74* 78* CREATININE mg/dL 5.85* 5.72* MAGNESIUM mg/dL -- 1.8 Will replace electrolytes PRN per ICU protocol Fluid Balance: IV Fluids: none UOP/24 H: pending Net Fluid/24H: No intake or output data in the 24 hours ending 11/07/231754 Net Fluid Since Admission: Net IO Since Admission: No IO data has been entered for this period [11/07/231754] Strict monitoring of intake and output Hospital Meds: PMH: ESRD, daily dialysis Home Meds: Bumex PSH: 6. Heme Labs: Results from last 3 days Lab Units 11/07/23 1510 11/07/23 1115 HEMOGLOBIN g/dL 11.5* 11.4* PLATELETS X10E9/L 90* 105* INR 1.0 1.0 Type and Screen: O RH+ Blood Products Administered: none Will continue to monitor hgb and transfuse PRN 7. ID Tmax/24H: Temp (24hrs), Av.7 C (98 F), Min:36.3 C (97.4 F), Max:36.9 C (98.4 F) Labs: Results from last 3 days Lab Units 11/07/23 1510 11/07/23 1115 WBC X10E9/L 7.4 7.7 Hospital Meds: Antibiotics: none Continue to monitor for signs of infection 8. Endocrine Results from last 3 days Lab Units 11/07/23 1510 11/07/23 1332 11/07/23 1115 BEDSIDE GLUCOSE mg/dL -- 263* -- GLUCOSE mg/dL 218* -- 255* Goal Blood Glucose <180 mg/dL Hospital Meds: SSI, Lantus BID PMH: Type 1 diabetes mellitus Home Meds: Lantus, HumaLOG, levothyroxine, prednisone PSH: 9. Musculoskeletal Left distal femur fracture, displaced CT scan of LLE 11/06: Comminuted distal femoral fracture with extension into the intercondylar portion of the knee. Orthopedic surgery consulted and following Splinted and immobilized L knee PMH: PSH: Home meds: PT/OT when able 10. Prophylaxis Respiratory: none GI: Pepcid DVT: SCD Cuffs, hold chem ppx 11. Lines, Drains, and Airway Hemodialysis catheter double lumen cuffed R IJ PICC line Hemodialysis cath triple lumen cuffed R subclavian 2x PIV Restrepo Tracheostomy Dispo: Critical, remain in SICU Marie Quick MD [employer] Pipe Fitter, PGY-1 Associated attestation - Leah Eric MD - 11/08/2023 4:36 PM EDT ATTENDING NOTE This patient remains critically ill and requires constant monitoring and titration of care by a Critical Care Consultant Electronics. Failure to do so may result in further organ system failure, imminent deterioration, or . Critical care time spent directly with the patient and family: 32 min Critical care was time spent personally by me on the following activities: Development of treatment plan with the patient or surrogate, discussions with consultants, discussions with the primary provider, ordering and performing treatments and interventions, ordering and review of laboratory studies, ordering and review of radiographic studies, pulse oximetry, re-evaluation of patient's condition, review of old charts, vascular access procedures, evaluation of patient's response to treatment, examination of patient, interpretation of cardiac output measurements and obtaining history from patient or surrogate I have seen and evaluated the patient and have also reviewed the history above and agree. I have repeated the finley portions of the physical exam and concur with the resident's/advanced practice provider findings. I have reviewed all laboratory findings and imaging reports/films. I agree with the plan as noted above. Electronically signed by Leah Eric MD [facility] General Surgeons Trauma, Acute Care Surgery and Surgical Critical Care [facility] 11-07-2023 Emergency department Note Bed: 30 Expected date: Expected time: Means of arrival: Comments: LACEY to A217 [facility] 11-07-2023 Emergency department Note Bed: 30 Expected date: Expected time: Means of arrival: Comments: LACEY to A217 Images from the original note were not included. History No chief complaint on file. I, Verena Weinstein (scribe), documented on behalf of Dr. Sydney Kennedy who performed an initial exam at 1528. Matthew Neal is a 58 y.o. female presents to the ED for a CC of fall. Pt is sleeping upon evaluation. She is trached and vented. She has hx chronic respiratory failure. This is a transfer from [facility] excepted for inpatient care History provided by: Patient Problem List Items Addressed This Visit Other * (Principal) Fall - Primary Past Medical History: Diagnosis Date Anemia CHF (congestive heart failure) ([facility]) Diabetes ([facility]) Morbid obesity ([facility]) NSTEMI (non-ST elevated myocardial infarction) ([facility]) Respiratory failure ([facility]) Past Surgical History: Procedure Laterality Date TRACHEOSTOMY Travel Screening Question Response Have you been in contact with someone who was sick? Yes Do you have any of the following new or worsening symptoms? None of these Have you traveled internationally or domestically in the last month? No Travel History Travel since 10/08/23 No documented travel since 10/08/23 No family history on file. Social History Substance and Sexual Activity Drug Use Never Social History Tobacco Use Smoking status: Never Smokeless tobacco: Never Vaping Use Vaping status: Never Used Substance Use Topics Alcohol use: Not Currently Drug use: Never Review of Systems Unable to perform ROS: Patient nonverbal Physical Exam ED Triage Vitals [11/07/23 1458] Temp Heart Rate Resp BP SpO2 -- (!) 111 18 -- 100 % Temp src Heart Rate Source Patient Position BP Location FiO2 (%) -- Monitor -- -- 40 % Vitals: 11/07/23 1458 Pulse: (!) 111 Resp: 18 SpO2: 100% Physical Exam Vitals and nursing note reviewed. Constitutional: General: She is not in acute distress. Appearance: Normal appearance. She is morbidly obese. Interventions: She is intubated. Comments: Non-verbal HENT: Head: Normocephalic and atraumatic. Right Ear: External ear normal. Left Ear: External ear normal. Nose: Nose normal. Mouth/Throat: Mouth: Mucous membranes are moist. Pharynx: Oropharynx is clear. Eyes: Extraocular Movements: Extraocular movements intact. Conjunctiva/sclera: Conjunctivae normal. Cardiovascular: Rate and Rhythm: Normal rate and regular rhythm. Pulses: Normal pulses. Pulmonary: Effort: Pulmonary effort is normal. She is intubated. Breath sounds: Normal breath sounds. Abdominal: General: There is no distension. Palpations: Abdomen is soft. There is no mass. Musculoskeletal: General: No deformity. Normal range of motion. Cervical back: Normal range of motion and neck supple. Comments: Splint on left femur Skin: General: Skin is warm and dry. Capillary Refill: Capillary refill takes less than 2 seconds. Neurological: General: No focal deficit present. Mental Status: She is oriented to person, place, and time. Procedure Procedures Re-Evaluation Re-Evaluation ED Course Clinical Impressions as of 11/07/23 1550 Fall [facility] Medical Decision Making Verena Romero ([email or web address]) documented for Dr. Sydney Kennedy. Chart Reviewed. Chief Complaint: fall Differential Diagnosis includes but is not limited to: fall, femur fracture, chronic ventilation dependent Plan of Care: admit to adult inpatient patient had a known femur fracture further care here trauma was consulted as they were excepted patient CT pelvis CT chest left knee patient was admitted to their service 1546 On re-evaluation, patient is resting comfortably. Results were discussed. Based on the diagnostic results and physical exam, pt requires admission. Risk Decision regarding hospitalization. RESULTS Labs: Labs Reviewed PROTIME & INR APTT CBC WITH AUTO DIFFERENTIAL DRUG SCREEN, URINE ETHANOL AMYLASE COMPREHENSIVE METABOLIC PANEL FIBRINOGEN URINALYSIS TYPE AND SCREEN Radiology: X-ray knee left 3 views Result Date: 11/07/2023 3 VIEWS LEFT KNEE HISTORY: Fracture, pain COMPARISON: None IMPRESSION: * Acute comminuted distal left femur fracture with mild impaction and slight lateral displacement of the main distal fracture fragment measuring 1.7 cm. * Diffuse osteopenia. Finalized by Bart Way MD on 11/07/2023 11:58 AM X-ray chest 1 view Result Date: 11/07/2023 CHEST 1 VIEW HISTORY: Dialysis COMPARISON: 07/17/2023 IMPRESSION: * Stable tracheostomy tube and right-sided dialysis catheter. * Persistent extensive opacities throughout the left hemithorax with volume loss, similar to previous study. Right lung is clear. * Unable to evaluate cardiomediastinal silhouette due to significant abnormalities in the left hemithorax. Finalized by Bart Way MD on 11/07/2023 11:57 AM X-ray femur left 2+ views Result Date: 11/07/2023 XR FEMUR LT 2+ VIEWS HISTORY: distal femur fracture COMPARISON: None available. IMPRESSION: Mildly comminuted fracture distal femoral metadiaphysis, with one third shaft's width lateral displacement of the distal fracture fragment and at least 1.6 cm of override. Osteopenia limits evaluation for intra-articular extension, CT could help further clarify. Finalized by Kelvin Wallis on 11/07/2023 11:55 AM NURSING NOTES AND VITALS REVIEWED The nursing notes within the ED encounter and vital signs as below have been reviewed. Pulse (!) 111 Resp 18 SpO2 100% --------- PROGRESS NOTES --------- The plan of care has been discussed with patient including today s results, in addition to providing specific details regarding counseling pertaining to the diagnosis and prognosis. All questions were answered at this time and they are agreeable with the plan ADDITIONAL PROVIDER NOTES At this time the patient has objective evidence of an acute process requiring hospitalization or inpatient management. Medications - No data to display Medication List None Diagnosis: 1. Fall Disposition: Patient's disposition: Admit Patient's condition is stable. Critical Care time: 0 min. Provider Statement By electronically signing this emergency patient record, the Emergency Physician/MEAT PACKER/PA-C attests that all entries made into the electronic medical record by shantelle Mcmullen prior to the Physician/MEAT PACKER/PA-C signature reflect an accurate accounting of the evaluation and care rendered by that Emergency Physician/MEAT PACKER/PA-C. The Emergency Physician/MEAT PACKER/PA-C assumes full responsibility for those entries. The Emergency Physician/MEAT PACKER/PA-C also attests that any patient testing or treatment that was instituted by nursing staff in accordance to Emergency Department Preemptive Guidelines have been reviewed and unless so stated elsewhere in this patient chart, the Physician/MEAT PACKER/PA-C agrees with the testing and care provided. Provider Statement: By electronically signing this emergency patient record, the Emergency Physician/MEAT PACKER/PA-C attests that all entries made into the electronic medical record by the scribe prior to the Physician/MEAT PACKER/PA-C signature reflect an accurate accounting of the evaluation and care rendered by that Emergency Physician/MEAT PACKER/PA-C. The Emergency Physician/MEAT PACKER/PA-C assumes full responsibility for those entries. Verena Weinstein 11/07/23 1525 Verena Weinstein 11/07/23 1531 Verena Weinstein 11/07/23 1542 Verena Weinstein 11/07/23 1550 Avel Kennedy DO 11/11/23 1427 Bed: T4 Expected date: Expected time: Means of arrival: 11i [facility] Comments: Matthew Neal 1965, s/p fall out of bed, left femur fracture. From [facility]. Hx daily dialysis M-F and chronic trach dependent. P/U time 130pm anderson. Thx BA, restrepo placed Vent Settings: rate: 20 tidal:500 Fi02:20 Peep: 8 documented in this encounter [facility] 11-07-2023 Physician Emergency department Note Images from the original note were not included. History No chief complaint on file. I, Verena Weinstein (scribe), documented on behalf of Dr. Sydney Kennedy who performed an initial exam at 1528. Matthew Neal is a 58 y.o. female presents to the ED for a CC of fall. Pt is sleeping upon evaluation. She is trached and vented. She has hx chronic respiratory failure. This is a transfer from [facility] excepted for inpatient care History provided by: Patient Problem List Items Addressed This Visit Other * (Principal) Fall - Primary Past Medical History: Diagnosis Date Anemia CHF (congestive heart failure) ([facility]) Diabetes ([facility]) Morbid obesity ([facility]) NSTEMI (non-ST elevated myocardial infarction) ([facility]) Respiratory failure ([facility]) Past Surgical History: Procedure Laterality Date TRACHEOSTOMY Travel Screening Question Response Have you been in contact with someone who was sick? Yes Do you have any of the following new or worsening symptoms? None of these Have you traveled internationally or domestically in the last month? No Travel History Travel since 10/08/23 No documented travel since 10/08/23 No family history on file. Social History Substance and Sexual Activity Drug Use Never Social History Tobacco Use Smoking status: Never Smokeless tobacco: Never Vaping Use Vaping status: Never Used Substance Use Topics Alcohol use: Not Currently Drug use: Never Review of Systems Unable to perform ROS: Patient nonverbal Physical Exam ED Triage Vitals [11/07/23 1458] Temp Heart Rate Resp BP SpO2 -- (!) 111 18 -- 100 % Temp src Heart Rate Source Patient Position BP Location FiO2 (%) -- Monitor -- -- 40 % Vitals: 11/07/23 1458 Pulse: (!) 111 Resp: 18 SpO2: 100% Physical Exam Vitals and nursing note reviewed. Constitutional: General: She is not in acute distress. Appearance: Normal appearance. She is morbidly obese. Interventions: She is intubated. Comments: Non-verbal HENT: Head: Normocephalic and atraumatic. Right Ear: External ear normal. Left Ear: External ear normal. Nose: Nose normal. Mouth/Throat: Mouth: Mucous membranes are moist. Pharynx: Oropharynx is clear. Eyes: Extraocular Movements: Extraocular movements intact. Conjunctiva/sclera: Conjunctivae normal. Cardiovascular: Rate and Rhythm: Normal rate and regular rhythm. Pulses: Normal pulses. Pulmonary: Effort: Pulmonary effort is normal. She is intubated. Breath sounds: Normal breath sounds. Abdominal: General: There is no distension. Palpations: Abdomen is soft. There is no mass. Musculoskeletal: General: No deformity. Normal range of motion. Cervical back: Normal range of motion and neck supple. Comments: Splint on left femur Skin: General: Skin is warm and dry. Capillary Refill: Capillary refill takes less than 2 seconds. Neurological: General: No focal deficit present. Mental Status: She is oriented to person, place, and time. Procedure Procedures Re-Evaluation Re-Evaluation ED Course Clinical Impressions as of 11/07/23 1550 Fall [facility] Medical Decision Making Verena Romero (scribe) documented for Dr. Sydney Kennedy. Chart Reviewed. Chief Complaint: fall Differential Diagnosis includes but is not limited to: fall, femur fracture, chronic ventilation dependent Plan of Care: admit to adult inpatient patient had a known femur fracture further care here trauma was consulted as they were excepted patient CT pelvis CT chest left knee patient was admitted to their service 1546 On re-evaluation, patient is resting comfortably. Results were discussed. Based on the diagnostic results and physical exam, pt requires admission. Risk Decision regarding hospitalization. RESULTS Labs: Labs Reviewed PROTIME & INR APTT CBC WITH AUTO DIFFERENTIAL DRUG SCREEN, URINE ETHANOL AMYLASE COMPREHENSIVE METABOLIC PANEL FIBRINOGEN URINALYSIS TYPE AND SCREEN Radiology: X-ray knee left 3 views Result Date: 11/07/2023 3 VIEWS LEFT KNEE HISTORY: Fracture, pain COMPARISON: None IMPRESSION: * Acute comminuted distal left femur fracture with mild impaction and slight lateral displacement of the main distal fracture fragment measuring 1.7 cm. * Diffuse osteopenia. Finalized by Bart Way MD on 11/07/2023 11:58 AM X-ray chest 1 view Result Date: 11/07/2023 CHEST 1 VIEW HISTORY: Dialysis COMPARISON: 07/17/2023 IMPRESSION: * Stable tracheostomy tube and right-sided dialysis catheter. * Persistent extensive opacities throughout the left hemithorax with volume loss, similar to previous study. Right lung is clear. * Unable to evaluate cardiomediastinal silhouette due to significant abnormalities in the left hemithorax. Finalized by Bart Way MD on 11/07/2023 11:57 AM X-ray femur left 2+ views Result Date: 11/07/2023 XR FEMUR LT 2+ VIEWS HISTORY: distal femur fracture COMPARISON: None available. IMPRESSION: Mildly comminuted fracture distal femoral metadiaphysis, with one third shaft's width lateral displacement of the distal fracture fragment and at least 1.6 cm of override. Osteopenia limits evaluation for intra-articular extension, CT could help further clarify. Finalized by Kelvin Wallis on 11/07/2023 11:55 AM NURSING NOTES AND VITALS REVIEWED The nursing notes within the ED encounter and vital signs as below have been reviewed. Pulse (!) 111 Resp 18 SpO2 100% --------- PROGRESS NOTES --------- The plan of care has been discussed with patient including today s results, in addition to providing specific details regarding counseling pertaining to the diagnosis and prognosis. All questions were answered at this time and they are agreeable with the plan ADDITIONAL PROVIDER NOTES At this time the patient has objective evidence of an acute process requiring hospitalization or inpatient management. Medications - No data to display Medication List None Diagnosis: 1. Fall Disposition: Patient's disposition: Admit Patient's condition is stable. Critical Care time: 0 min. Provider Statement By electronically signing this emergency patient record, the Emergency Physician/MEAT PACKER/RJ attests that all entries made into the electronic medical record by shantelle Mcmullen prior to the Physician/MEAT PACKER/PA-C signature reflect an accurate accounting of the evaluation and care rendered by that Emergency Physician/MEAT PACKER/PA-C. The Emergency Physician/MEAT PACKER/PA-C assumes full responsibility for those entries. The Emergency Physician/MEAT PACKER/PA-C also attests that any patient testing or treatment that was instituted by nursing staff in accordance to Emergency Department Preemptive Guidelines have been reviewed and unless so stated elsewhere in this patient chart, the Physician/MEAT PACKER/PA-C agrees with the testing and care provided. Provider Statement: By electronically signing this emergency patient record, the Emergency Physician/MEAT PACKER/PA-C attests that all entries made into the electronic medical record by the scribe prior to the Physician/MEAT PACKER/PA-C signature reflect an accurate accounting of the evaluation and care rendered by that Emergency Physician/MEAT PACKER/PA-C. The Emergency Physician/MEAT PACKER/PA-C assumes full responsibility for those entries. Verena Weinstein 11/07/23 1525 Verena Weinstein 11/07/23 1531 Verena Weinstein 11/07/23 1542 Verena Veras 11/07/23 1550 Avel Kennedy DO 11/11/23 1427 [facility] 11-07-2023 Emergency department Note Bed: T4 Expected date: Expected time: Means of arrival: [facility] Comments: Matthew Neal 1965, s/p fall out of bed, left femur fracture. From [facility]. Hx daily dialysis M-F and chronic trach dependent. P/U time 130pm anderson. Thx BA, restrepo placed Vent Settings: rate: 20 tidal:500 Fi02:20 Peep: 8 [facility] 11-01-2023 Note Subjective Patient ID: Matthew Neal is a 58 y.o. female who presents for Follow-up (Matthew is here today for a follow up visit for Infected prosthetic mesh of abdominal wall, s/p umbilical hernia repair with mesh- 2 wk. ). HPI 58 years old morbid obesity white female is visiting for umbilical hernia mesh exposure. She denies of fever or chills. Review of Systems Constitutional: Negative. Respiratory: Positive for apnea and shortness of breath. Cardiovascular: Negative. Gastrointestinal: Positive for abdominal pain and nausea. Genitourinary: Negative. Neurological: Negative. Hematological: Bruises/bleeds easily. Objective Visit Vitals BP 98/62 (BP Location: Right wrist, Patient Position: Sitting) Pulse (!) 116 Temp 36.6 ???C (97.9 ???F) (Oral) Physical Exam Constitutional: Appearance: She is obese. Comments: In wheelchair HENT: Head: Atraumatic. Cardiovascular: Rate and Rhythm: Normal rate. Pulmonary: Effort: Pulmonary effort is normal. Abdominal: General: Abdomen is flat. Palpations: Abdomen is soft. Comments: Umbilical open wound with mesh exposure. Sharp debridement was performed to remove exposed mesh. Musculoskeletal: Cervical back: Neck supple. Neurological: Mental Status: She is alert. Assessment/Plan Umbilical herniorrhaphy mesh exposed Debridement of the umbilical wound was performed. Wet-to-dry dressing change daily. No diagnosis found. No orders of the defined types were placed in this encounter. No results found for this or any previous visit (from the past 36 hour(s)). No follow-ups on file. [facility] 10-19-2023 Note Subjective Patient ID: Matthew Neal is a 58 y.o. female who presents for Consult (Matthew is here for consult: Infected mesh abdominal wall, s/p umbilical hernia repair 2004 ). HPI Matthew Neal is a 58 y/o female presenting for infected abdominal wall mesh s/p umbilical hernia repair in 2004. Wound with discharge, never healed. Review of Systems Constitutional: Negative. HENT: Negative. Eyes: Negative. Respiratory: Positive for shortness of breath. Cardiovascular: Negative. Gastrointestinal: Positive for abdominal pain. Endocrine: Negative. Genitourinary: Negative. Musculoskeletal: Negative. Skin: Negative. Allergic/Immunologic: Negative. Neurological: Negative. Hematological: Bruises/bleeds easily. Psychiatric/Behavioral: Negative. Objective Visit Vitals BP 95/58 Pulse 94 Temp 36.3 ???C (97.3 ???F) (Oral) Resp 20 Physical Exam Constitutional: Appearance: She is obese. Comments: A wheelchair HENT: Head: Normocephalic. Cardiovascular: Rate and Rhythm: Normal rate. Pulmonary: Comments: Patient is tracheostomy status, on ventilator, labored breathing. Abdominal: Comments: Open umbilical wound with mesh exposed and the Prolene suture exposed. Skin: General: Skin is dry. Neurological: Mental Status: She is alert. Assessment/Plan Chronic umbilical wound with mesh exposed and Prolene suture exposed. The Prolene suture was removed. Exposed mesh was debrided. The wound was packed with Vaseline gauze, recommend wet-to-dry dressing change with half-strength Dakin solution twice a day. Follow-up in 1 month. Diagnosis Plan 1. Wound infection Ambulatory referral to General Surgery No orders of the defined types were placed in this encounter. No results found for this or any previous visit (from the past 36 hour(s)). No follow-ups on file. [facility] 10-19-2023 Note Subjective Patient ID: Matthew Neal is a 58 y.o. female who presents for Consult (Matthew is here for consult: Infected mesh abdominal wall, s/p umbilical hernia repair 2004 ). HPI Review of Systems Constitutional: Negative. HENT: Negative. Eyes: Negative. Respiratory: Positive for shortness of breath. Cardiovascular: Negative. Gastrointestinal: Positive for abdominal pain. Endocrine: Negative. Genitourinary: Negative. Musculoskeletal: Negative. Skin: Negative. Allergic/Immunologic: Negative. Neurological: Negative. Hematological: Bruises/bleeds easily. Psychiatric/Behavioral: Negative. Objective Visit Vitals BP 95/58 Pulse 94 Temp 36.3 ???C (97.3 ???F) (Oral) Resp 20 Physical Exam Assessment/Plan Diagnosis Plan 1. Wound infection Ambulatory referral to General Surgery No orders of the defined types were placed in this encounter. No results found for this or any previous visit (from the past 36 hour(s)). No follow-ups on file. [facility] 05-30-2023 Miscellaneous Notes Addended by: JONE CROCKER on: 05/30/2023 12:33 PM Modules accepted: Orders documented in this encounter [facility] 05-30-2023 Note Addended by: JONE GAMBOA on: 05/30/2023 12:33 PM Modules accepted: Orders [facility] 05-06-2023 History of Present illness Narrative Matthew Fátima Date of visit: 05/06/2023 Date of : 1965 Age: 58 y.o. 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 albuterol (ACCUNEB) 0.63 mg/3 mL nebulizer solution Inhale 3 mL (0.63 mg total) by nebulization every 6 (six) hours as needed for wheezing. ALPRAZolam (XANAX) 1 mg tablet Take 1 tablet (1 mg total) by mouth 4 (four) times a day before meals and nightly Indications: anxious. aspirin 81 mg Take 1 tablet (81 mg total) by mouth in the morning. bumetanide (BUMEX) 1 mg tablet Take 2 tablets (2 mg total) by mouth daily. busPIRone (BUSPAR) 10 mg tablet Take 1 tablet (10 mg total) by mouth 3 (three) times a day. cholecalciferol, vitamin D3, 400 units tablet Take 1 tablet (400 Units total) by mouth every other day Indications: low vitamin D levels. ciprofloxacin HCl (CIPRO) 250 mg tablet Take 1 tablet (250 mg total) by mouth in the morning for 90 days. 90 tablet 0 cyclobenzaprine (FLEXERIL) 5 mg tablet Take 2 tablets (10 mg total) by mouth every 6 (six) hours. epoetin beta, methoxy peg (MIRCERA) 75 mcg/0.3 mL syringe Inject 75 mcg as directed every 14 (fourteen) days. FLUoxetine (PROzac) 40 mg capsule Take 1 capsule (40 mg total) by mouth in the morning. folic acid-B aedq-I-twclx-zinc (DIALYVITE) 3-70-15 mg-mcg-mg tablet Take by mouth daily. gabapentin (NEURONTIN) 100 mg capsule Take 1 capsule (100 mg total) by mouth 3 (three) times a day. insulin glargine (LANTUS, BASAGLAR) 100 unit/mL (3 mL) insulin pen Inject 20 Units under the skin in the morning and 20 Units in the evening. Inject before meals. 15 mL 12 insulin lispro (HumaLOG) 100 unit/mL insulin pen [...] mg/dL, give 10 units. 15 mL 12 insulin lispro (HumaLOG) 100 unit/mL insulin pen Inject 2-8 Units under the skin nightly. Bedtime hyperglycemia dosing. For glucose 201-250 mg/dL, give 2 units. For glucose 251-300 mg/dL, give 4 units. For glucose 301-350 mg/dL, give 6 units. For glucose 351-400 mg/dL, give 8 units. 15 mL 12 lacosamide (VIMPAT) 100 mg tablet Take 0.5 tablets (50 mg total) by mouth in the morning and 0.5 tablets (50 mg total) before bedtime. levETIRAcetam (KEPPRA) 1000 mg tablet Take 0.5 tablets (500 mg total) by mouth 3 (three) times a day. levothyroxine (SYNTHROID, LEVOTHROID) 175 MCG tablet Take 1 tablet (175 mcg total) by mouth in the morning. midodrine (PROAMATINE) 10 mg tablet Take 1 tablet (10 mg total) by mouth as needed (Hemodialysis - PRN at initiation and midway through dialysis session). 90 tablet 3 naloxone (NARCAN) 4 mg/actuation spray,non-aerosol nasal spray Administer 1 spray (4 mg total) into alternating nostrils as needed for opioid reversal. 3 each 3 ondansetron (ZOFRAN) 4 mg tablet Take 1 tablet (4 mg total) by mouth every 6 (six) hours as needed for nausea or vomiting. oxycodone HCl (OXYCODONE ORAL) Take 5 mg by mouth every 6 (six) hours as needed. pantoprazole (PROTONIX) 40 mg EC tablet Take 1 tablet (40 mg total) by mouth in the morning. polyethylene glycol (GLYCOLAX) 17 gram/dose powder Take 17 g by mouth in the morning. predniSONE (DELTASONE) 20 mg tablet Take 1 tablet (20 mg total) by mouth in the morning. risperiDONE (RisperDAL) 1 mg tablet Take 1 tablet (1 mg total) by mouth in the morning. sennosides-docusate sodium (SENOKOT-S) 8.6-50 mg Take 1 tablet by mouth every 12 (twelve) hours as needed for constipation. 60 tablet 3 sevelamer (RENVELA) 800 mg tablet Take 1 tablet (800 mg total) by mouth in the morning and 1 tablet (800 mg total) at noon and 1 tablet (800 mg total) in the evening. Take with meals. darbepoetin linda-polysorbate (ARANESP, IN POLYSORBATE,) 60 mcg/0.3 mL syringe Inject 0.3 mL (60 mcg total) under the skin every 14 (fourteen) days. (Patient not taking: Reported on 11/06/2022) ferrous sulfate 325 (65 FE) mg tablet Take 1 tablet (325 mg total) by mouth in the morning and 1 tablet (325 mg total) in the evening. Take with meals. (Patient not taking: Reported on 05/06/2023) 90 tablet 3 melatonin 12 mg tablet Take 6 mg by mouth daily. (Patient not taking: Reported on 11/05/2022) No current facility-administered medications for this visit. Chief Complaint Patient presents with 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-referred by ratna cornejo-Pre-op examination-extremity lipectomy w [facility]- date tbd -ekg every week at [facility] History of Present Illness Matthew Neal is a 58 y.o. year old female that presents today for preoperative examination. Patient states that she is feeling well today. She normally feels fatigued after dialysis treatment. She admits to frequent dyspnea. Respiratory therapist indicates that the patient's dyspnea will vary. Patient reports that her stress test revealed that half of her heart is not working and she has been told that she has CHF. She normally takes blood thinners and was taken off of them for an unknown reason. She denies any history of atrial fibrillation or atrial flutter. Patient takes an 81 mg baby Aspirin. She is wheelchair bound and has been for years. She denies stroke history. Respiratory therapist reports that the patient has been experiencing a lot of vaginal bleeding. Patient is doing well. Patient denies any chest pains, palpitations, dizziness, syncope, or syncopal episodes. Past Medical History: Diagnosis Date Anemia CHF (congestive heart failure) ([facility]) Diabetes ([facility]) Morbid obesity ([facility]) NSTEMI (non-ST elevated myocardial infarction) ([facility]) Respiratory failure ([facility]) No data recorded No data recorded No data recorded History reviewed. No pertinent surgical history. History reviewed. No pertinent family history. Social History Socioeconomic History Marital status: Spouse name: Not on file Number of children: Not on file Years of education: Not on file Highest education level: Not on file Occupational History Not on file Tobacco Use Smoking status: Never Smokeless tobacco: Never Vaping Use Vaping Use: Never used Substance and Sexual Activity Alcohol use: Not Currently Drug use: Never Sexual activity: Defer Other Topics Concern Caffeine Use Yes Social History Narrative Not on file Social Determinants of Health Financial Resource Strain: Not on file Food Insecurity: No Food Insecurity (05/06/2023) Hunger Screening Food Insecurity - Worry: Never True Food Insecurity - Inability: Never True Transportation Needs: Not on file Physical Activity: Not on file Stress: Not on file Social Connections: Not on file Interpersonal Safety: Not on file Housing Instability: Not on file Review of Systems Review of Systems HENT: Positive for hoarse voice. Respiratory: Positive for cough and shortness of breath. Skin: Positive for rash. Musculoskeletal: Positive for back pain. Gastrointestinal: Positive for change in bowel habit. Neurological: Positive for dizziness, light-headedness and numbness. Psychiatric/Behavioral: The patient is nervous/anxious. CARDIOVASCULAR: Please review HPI. Physical Examination General appearance: Alert, oriented and cooperative. In no acute distress. Skin: Warm and dry to touch. Head: Normocephalic, without obvious abnormality, atraumatic. Eyes: Conjunctivae unremarkable, EOM intact. Neck: No JVD, No carotid bruit. Neck supple, trachea midline. Respiratory: Clear to auscultation bilaterally, no use of accessory muscles. Cardiovascular: RRR with normal S1 and S2 with no murmurs. Musculoskeletal: No peripheral edema. Neurologic: Oriented to time, person and place, affect appropriate. No focal/major motor defects noted. Psychiatric: Appropriate mood, memory and judgement. VITAL SIGNS: BP 144/82 (BP Site: Left Arm, BP Postition: Sitting) Pulse 103 Ht 154.9 cm (5' 0.98 ) Wt (!) 158.1 kg (348 lb 8 oz) SpO2 94% BMI 65.89 kg/m Orders Placed or Reconciled This Encounter Medications folic acid-B muem-Q-rypfh-zinc (DIALYVITE) 3-70-15 mg-mcg-mg tablet Sig: Take by mouth daily. polyethylene glycol (GLYCOLAX) 17 gram/dose powder Sig: Take 17 g by mouth in the morning. epoetin beta, methoxy peg (MIRCERA) 75 mcg/0.3 mL syringe Sig: Inject 75 mcg as directed every 14 (fourteen) days. predniSONE (DELTASONE) 20 mg tablet Sig: Take 1 tablet (20 mg total) by mouth in the morning. acetaminophen (TYLENOL) 325 mg suppository Sig: Insert 2 suppositories (650 mg total) into the rectum every 6 (six) hours as needed for fever. ondansetron (ZOFRAN) 4 mg tablet Sig: Take 1 tablet (4 mg total) by mouth every 6 (six) hours as needed for nausea or vomiting. There are no discontinued medications. [id number] Score: 3 3.2% Stroke risk per year, 4.6% risk of stroke/TIA/systemic embolism IMPRESSIONS/PLAN 1. Pre-op examination - [facility] [place], [place] - Nuc stress Lexiscan; Future - ECG 12 lead; Future - POCT EKG 1. Pre-op examination Echocardiogram 06/03/2022 - LV systolic function is normal. EF 65-70%. No definite valvular vegetations visualized. RVSP within nomral limits. Stress test ordered to determine if the patient is a viable surgical candidate with intentions to obtain further testing if the stress test is abnormal. Most recent Hgb is 8.7 according to paperwork provided by the [facility]. EKG demonstrated atrial fibrillation/flutter chads Vasc score of at least 3 given sex congestive heart failure and diabetes. Will hold off on anticoagulation because of vaginal bleeding. Will continue to monitor. Workup in progress for vaginal bleeding. Discussed with the patient the diagnosis and treatment plan. Answered all questions to the patients satisfaction. Patient is agreeable to the plan of care. TODAYS ORDERS Orders Placed This Encounter Procedures Nuc stress Lexiscan ECG 12 lead POCT EKG FOLLOW UP Return in about 3 months (around 08/05/2023). PCP: JULIÁN CONTI MD Referring Physician: Jul[place]án [place] [address] A total of 20 minutes were spent with the patient, of which more than 50% consisted of counseling. Scribed for and in the presence of Daniel Jones MD by Chavez Villela. Chavez Villela 05/06/2023 11:06 AM documented in this encounter [facility] 05-05-2023 Miscellaneous Notes Called patient to remind them to bring their most current copy of their medication list with them to their appt. Staff at [facility] verbalizes understanding. documented in this encounter [facility] 05-05-2023 Telephone encounter Note Called patient to remind them to bring their most current copy of their medication list with them to their appt. Staff at [facility] verbalizes understanding. [facility] 06-21-2022 [place] [facility] [place]22 [place] [facility] 06-09-2022 [place] [facility] 06-08-2022 [place] [facility] 06-03-2022 [place] [facility] [place]-03-2022 [place] [facility] 06-02-2022 [place] [facility] [place]-20[place] Hospital Discharge instructions Care Recommendation:I recommend that INPATIENT care is required at: LTACEstimated Stay: > 180 daysPrognosis: TerminalRehab Potential/Function: MaintainTherapy Orders:Occupational Therapy Orders: [facility] ([facility]), 1-3 times/weekPhysical Therapy Orders: Eval [facility] ([facility]), 1-3 times/weekSpeech Therapy Orders: Eval and Treat ([facility]), 1-3 times/weekProvider Follow Up:Physician To Follow at [facility]/Rehab: Attending Physician at [facility] - Other Clinicians:Other Clinician Instructions: Please follow up with your primary care provider within 7 days for hospital follow up. Please call to make this appointment. You will need close follow up with your PCP regarding vaginal bleeding that you have been having. Please take your medications as prescribed. If you have any new or worsening symptoms seek medical attention.Thank you for allowing us to participate in your care![place] [place] [facility] [place]-2022 Note [facility] 05-30-2022 Note [facility] 01-31-2022 Note [facility] 01-28-2022 Note [facility] 12-11-2021 [place] [facility] 12-11-2021 Note [facility] [place]-11-2021 Hospital Discharge instructions Mechanical Ventilation:Ventilation Type: mechanical ventilationType of Ventilation: volume controlTidal Volume: 500Frequency: 18FiO2: 40PEEP/ CPAP: 5Trach:Trach Type: Kiran, Elayne Trach Size/Type During Hospitalization: 6-0 XLTTrach Changed Date: 2Care Recommendation:I recommend that INPATIENT care is [facility]: > 180 daysRehab Potential/Function: MaintainTherapy Orders:Occupational Therapy Orders: Eval [facility] Treat ([facility])Physical Therapy Orders: Eval and Treat ([facility])Speech Therapy Orders: Eval and Treat ([facility])Provider Follow Up:Primary Care Physician: Dr. Mykel ChatmanFollnatasha Up Appointment 1:Physician/Dept/Service: Dr. Tracie Rowe to Schedule in: 1 weekFollow Up Appointment 2:Physician/Dept/Service: Dr. Mykel Chatman [facility] 12-11-2021 Note [facility] [place] Lymphatic: No signif icant lymphadenopathyPsychological: A&Ox3. Normal affect and behaviorsConstitutional: morbidly obese, alert and cooperative, in no acute distress, ill lookingSkin: Warm, dry. No rash.Eyes: PERRL, EOMI, clear scleraHead/Neck: No JVD, Neck supple, no apparent injury, thyroid without mass or tenderness, trachea midline, no bruitsRespiratory/Thorax: Diminished breath sounds bilaterally. No rales, rhonchi, wheezing.Cardiovascular: Distant s1, s2 Regular Rate and Rhythm. No murmurs appreciated.Gastrointestinal: Soft, non distended, non tender, Bowel sounds positive x4. No guarding or rebound. No massesMusculoskeletal: No joint erythema or tendernessExtremities: No significant deformity or joint abnormality. trace edema. Peripheral pulses intact. No visible signs of bleeding, petichiae or ecchymosisENMT: Head normocephalic, atraumatic, PERRL, EOMI, Mucosal Membranes pink, few petichiae posterior pharynxNeurological: A&Ox3. No focal neuro deficits. [facility] Evaluation note Extremities: No sign ificant deformity or joint abnormality. +2 edemaGastrointestinal: Soft, non distended, non tender, Bowel sounds positive x4. No guarding or rebound. No massesCardiovascular: Distant s1, s2 Regular Rate and Rhythm. + murmurs appreciated.Lymphatic: No significant lymphadenopathyNeurological: A&Ox2-3 . No focal neuro deficits.Psychological: A&Ox2-3. Normal affect and behaviorsRespiratory/Thorax: Diminished breath sounds bilaterally. mechanical breath soundsHead/Neck: No JVD, Neck supple, no apparent injury, thyroid without mass or tenderness, trachea midline, no bruitsENMT: Head normocephalic, atraumatic, + trachEyes: PERRL, EOMI, clear scleraSkin: Warm, dry. No rash.Musculoskeletal: No joint erythema or tendernessConstitutional: morbidly obese, alert and cooperative, in no acute distress, ill looking, on vent via trach [facility] Evaluation note Respiratory/Thorax: Diminished breath sounds bilaterally. mechanical breath soundsCardiovascular: Distant s1, s2 Regular Rate and Rhythm. + murmurs appreciated.Gastrointestinal: Nondistended, soft, non-tender, no rebound tenderness or guarding, no masses palpable, no organomegaly, +BS, no bruitsMusculoskeletal: No joint erythema or tendernessExtremities: No significant deformity or joint abnormality. +2 edemaPsychological: A&Ox2-3. Normal affect and behaviorsLymphatic: No significant lymphadenopathyConstitutional: morbidly obese, in acute distress, ill looking, on vent via trachSkin: + tarchEyes: + pallor PERRL, EOMI, clear scleraENMT: Head normocephalic, atraumatic, + trachNeurological: A&Ox2-3 . No focal neuro deficits.Head/Neck: + JVD, Neck supple, no apparent injury, thyroid without mass or tenderness, trachea midline, no bruits [facility] Evaluation note Lymphatic: No signif icant lymphadenopathyConstitutional: morbidly obese, in acute distress, ill looking, on vent via trachSkin: + trachEyes: + pallor PERRL, EOMI, clear scleraENMT: Head normocephalic, atraumatic, + trachGastrointestinal: Soft, non distended, non tender, Bowel sounds positive x4. No guarding or rebound. No massesRespiratory/Thorax: Diminished breath sounds bilaterally. mechanical breath soundsCardiovascular: Distant s1, s2 Regular Rate and Rhythm. + murmurs appreciated.Musculoskeletal: No joint erythema or tendernessExtremities: No significant deformity or joint abnormality. +2 edemaNeurological: A&Ox2-3 . No focal neuro deficits.Head/Neck: + JVD, Neck supple, no apparent injury, thyroid without mass or tenderness, trachea midline, no bruitsPsychological: A&Ox2-3. Normal affect and behaviors [facility] Evaluation note No assessment inform [facility] Work Phone: Evaluation note Diagnosis Severe pain- Primary [facility] Diagnosis Severe pain- Primary Anxiety Anxiety state, unspecified [facility]* Diagnosis Anxiety- Primary Anxiety state, unspecified [facility]* Diagnosis Severe pain- Primary [facility]* Diagnosis Closed displaced supracondylar fracture with intracondylar extension of lower end of left femur with routine healing- Primary documented in this encounter [facility]* Diagnosis Pre-op examination- Primary documented in this encounter [facility]* Diagnosis Coronary artery disease involving menominee heart, unspecified vessel or lesion type, unspecified whether angina present- Primary documented in this encounter [facility]* Diagnosis Dyspnea, unspecified type- Primary Coronary artery disease involving menominee heart, unspecified vessel or lesion type, unspecified whether angina present documented in this encounter [facility]* Diagnosis Fall- Primary Unspecified fall Fall Unspecified fall Surgical wound present Abdominal wall skin ulcer, with fat layer exposed ([facility]) Infected prosthetic mesh of abdominal wall ([facility] documented in this encounter [facility]* Diagnosis Closed fracture of distal end of left femur with routine healing, unspecified fracture morphology, subsequent encounter- Primary documented in this encounter [facility]* Diagnosis Closed displaced supracondylar fracture with intracondylar extension of lower end of left femur with routine healing- Primary Morbid obesity with BMI of 60.0-69.9, adult ([facility]) documented in this encounter [facility]* Diagnosis Chronic heart failure with preserved ejection fraction (HFpEF) ([facility])- Primary Atrial fibrillation/flutter ([facility]) Hx of coronary artery disease Primary hypertension Unspecified essential hypertension PMB (postmenopausal bleeding) Postmenopausal bleeding Pelvic pain documented in this encounter [facility]* Diagnosis PMB (postmenopausal bleeding)- Primary Postmenopausal bleeding Pelvic pain documented in this encounter [facility]* Diagnosis End stage renal disease ([facility])- Primary End stage renal disease documented in this encounter [facility]* Diagnosis Severe pain- Primary documented in this encounter [facility]* Diagnosis Severe pain- Primary documented in this encounter [facility]* Diagnosis Severe pain- Primary documented in this encounter [facility]* Diagnosis Preoperative cardiovascular examination- Primary Pre-operative cardiovascular examination Atrial fibrillation/flutter ([facility]) [facility] Care Recommendation:I recommend that INPATIENT care is required at: LTACEstimated Stay: > 180 day sPrognosis: TerminalRehab Potential/Function: Maintain * Provider Follow Up:Physician To Follow at Skilled/Rehab: Attending Physician at Skilled/Rehab * Gold Form - Other Clinicians:Other Clinician Instructions: Please follow up with your primary care provider within 7 days for hospital follow up. Please call to make this appointment. Please also follow-up with [facility] doctor at your earliest convenience in order to discuss further management of right ovarian massPlease take your medications as prescribed. You will be receiving vancomycin intravenously for the next 6 weeks with your hemodialysis sessions.If you have any new or worsening symptoms seek medical attention.Thank you for allowing us to participate in your care!-[facility]. [facility]* Care Recommendation:I recommend that INPATIENT care is required at: SkilledEstimated Stay: > 180 daysPrognosis: FairRehab Potential/Function: Maintain * Provider Follow Up:Physician To Follow at Skilled/Rehab: Attending Physician at Skilled/Rehab [facility]ructionsNot on filedocumented in this encounter [facility] on filedocumented in this encounter [facility]Not on filedocumented in this encounter [facility]Not on filedocumented in this encounter [facility] on filedocumented in this encounter [facility]Not on filedocumented in this encounter [facility]Not on filedocumented in this encounter [facility]Not on filedocumented in this encounter [facility]Not on filedocumented in this encounter [facility]Not on filedocumented in this encounter [facility]Not on filedocumented in this encounter [facility]Not on filedocumented in this encounter [facility]ructionsNot on filedocumented in this encounter [facility] SystemInstructionsNot on filedocumented in this encounter [facility] SystemInstructionsNot on filedocumented in this encounter [facility] (n[facility] Reason for Referral: Swallowing Evaluation - Rule Out Aspiration [facility] Summary Purpose Family History No Family History Records FoundNo Family History Records FoundNo Family History Records FoundNo Family History Records FoundNo Family History Records FoundNo Family History Records FoundNo Family History Records FoundNo Family History Records FoundNo Family History Records FoundNo Family History Records Found Advance Directives Date Activated Date Inactivated Comments 12/20/2023 2:55 PM Date Activated Date Inactivated Comments 12/19/2023 2:46 PM 12/20/2023 2:55 PM Date Activated Date Inactivated Comments 12/17/2023 7:26 PM 12/19/2023 2:46 PM Date Activated Date Inactivated Comments 11/07/2023 4:10 PM 11/11/2023 11:50 PM Date Activated Date Inactivated Comments 11/06/2022 9:56 AM 11/11/2022 11:06 PM Advance Directive Response Recorded Date/ Time Advance Directives No August 03, 2 021 2:43pm Documents on File Type Date Recorded Patient Rn Home Health Expl anation Advance Directive 04/18/2024 6:34 PM DNR Durable Power of Photographer [employer] 01/10/2024 4:09 PM DNR Physician Order 01/10/2024 9:55 AM Date Activated Date Inactivated Comments 01/30/2024 3:29 AM 02/03/2024 10:15 PM Date Activated Date Inactivated Comments 12/20/2023 2:55 PM 12/26/2023 7:34 PM Date Activated Date Inactivated Comments 12/19/2023 2:46 PM 12/20/2023 2:55 PM Date Activated Date Inactivated Comments 12/17/2023 7:26 PM 12/19/2023 2:46 PM Date Activated Date Inactivated Comments 11/07/2023 4:10 PM 11/11/2023 11:50 PM Latest Code Status on File Code Status Date Activated Date Inactivated Comments Full Code 11/06/2022 9:56 AM 11/11/2022 11:06 PM Latest Code Status on File Code Status Date Activated Date Inactivated Comments Full Code 11/06/2022 9:56 AM 11/11/2022 11:06 PM Date Activated Date Inactivated Comments 11/07/2023 4:10 PM Date Activated Date Inactivated Comments 11/06/2022 9:56 AM 11/11/2022 11:06 PM Date Activated Date Inactivated Comments 11/07/2023 4:10 PM 11/11/2023 11:50 PM Date Activated Date Inactivated Comments 11/06/2022 9:56 AM 11/11/2022 11:06 PM Date Activated Date Inactivated Comments 12/20/2023 2:55 PM 12/26/2023 7:34 PM Date Activated Date Inactivated Comments 12/17/2023 7:26 PM Date Activated Date Inactivated Comments 11/07/2023 4:10 PM 11/11/2023 11:50 PM Date Activated Date Inactivated Comments 11/06/2022 9:56 AM 11/11/2022 11:06 PM Documents on File Type Date Recorded Patient Rn Home Health Expl anation Durable Power of Photographer [employer] 01/10/2024 4:09 PM DNR Physician Order 01/10/2024 9:55 AM Date Activated Date Inactivated Comments 12/20/2023 2:55 PM 12/26/2023 7:34 PM Date Activated Date Inactivated Comments 12/19/2023 2:46 PM 12/20/2023 2:55 PM Date Activated Date Inactivated Comments 12/17/2023 7:26 PM 12/19/2023 2:46 PM Date Activated Date Inactivated Comments 11/07/2023 4:10 PM 11/11/2023 11:50 PM Date Activated Date Inactivated Comments 11/06/2022 9:56 AM 11/11/2022 11:06 PM Date Activated Date Inactivated Comments 01/30/2024 3:29 AM Documents on File Type Date Recorded Patient Rn Home Health Expl anation Durable Power of Photographer [employer] 01/10/2024 4:09 PM DNR Physician Order 01/10/2024 9:55 AM Date Activated Date Inactivated Comments 01/30/2024 3:29 AM 02/03/2024 10:15 PM Date Activated Date Inactivated Comments 12/20/2023 2:55 PM 12/26/2023 7:34 PM Date Activated Date Inactivated Comments 12/19/2023 2:46 PM 12/20/2023 2:55 PM Date Activated Date Inactivated Comments 12/17/2023 7:26 PM 12/19/2023 2:46 PM Date Activated Date Inactivated Comments 11/07/2023 4:10 PM 11/11/2023 11:50 PM Reason for Referral Specialty Diagnoses / Procedures Referred By Contac t Referred To Contact Diagnoses Pre-op examination Procedures ECG 12 lead Daniel Jones MD [address] [place] [address] Referral ID Status Reason Start Date Expiration Date V isits Requested Visits Authorized [id number] Pending Review 05/06/2023 05/05/2024 1 1 Specialty Diagnoses / Procedures Referred By Contac t Referred To Contact Diagnoses Pre-op examination Procedures Nuc stress Lexiscan Daniel Jones MD [address] [place] [address] [address] [place] [place] [address] Phone: [phone] Referral ID Status Reason Start Date Expiration Date V isits Requested Visits Authorized [id number] Authorized 05/06/2023 05/05/2024 5 5 Specialty Diagnoses / Procedures Referred By Contac t Referred To Contact Diagnoses Dyspnea, unspecified type Coronary artery disease involving [place] heart, unspecified vessel or lesion type, unspecified whether angina present Procedures Echo stress dobutamine W/contrast Artur Liang, PILE DRIVER OPERATOR [employer] SOFTWARE ENGINEER [address] [place] [address] Referral ID Status Reason Start Date Expiration Date V isits Requested Visits Authorized [id number] Pending Review 05/31/2023 05/30/2024 1 1 Specialty Diagnoses / Procedures Referred By Contac t Referred To Contact Procedures Discharge Follow-Up Kriss Ibanez PA [email or web address] [place] [address] Referral ID Status Reason Start Date Expiration Date V isits Requested Visits Authorized [id number] Pending Review 11/11/2023 11/10/2024 1 1 Specialty Diagnoses / Procedures Referred By Contac t Referred To Contact Diagnoses Fall Procedures Follow-up with primary care provider rKiss Ibanez PA [email or web address] [place] [address] Referral ID Status Reason Start Date Expiration Date V isits Requested Visits Authorized [id number] Pending Review 11/11/2023 11/10/2024 1 1 Specialty Diagnoses / Procedures Referred By Contac t Referred To Contact Procedures Leave dressing on - Keep it clean, dry, and intact until clinic visit Kriss Ibanez PA [address] [place] [address] Referral ID Status Reason Start Date Expiration Date V isits Requested Visits Authorized [id number] Pending Review 11/11/2023 11/10/2024 1 1 Specialty Diagnoses / Procedures Referred By Contac t Referred To Contact Procedures Adult diet Kriss Ibanez PA [address] [place] [address] Referral ID Status Reason Start Date Expiration Date V isits Requested Visits Authorized [id number] Pending Review 11/11/2023 11/10/2024 1 1 Specialty Diagnoses / Procedures Referred By Contac t Referred To Contact Radiology Diagnoses PMB (postmenopausal bleeding) Pelvic pain Procedures CT abdomen and pelvis without contrast Wesley Kim MD [facility], [address] [place] [address] Referral ID Status Reason Start Date Expiration Date V isits Requested Visits Authorized [id number] Pending Review 12/27/2023 12/26/2024 1 1 Additional Source Comments INFORMATION SOURCE (unrecogn ized section and content) DATE CREATED AUTHOR 01/14/2021 Mateus Nolascous [facility] DATE CREATED AUTHOR AUTHOR'S ORGANIZ ATION 01/19/2021 [facility] DATE CREATED AUTHOR AUTHOR'S ORGANIZ ATION 05/15/2021 [facility] DATE CREATED AUTHOR AUTHOR'S ORGANIZ ATION 01/14/2022 [facility] DATE CREATED AUTHOR AUTHOR'S ORGANIZ ATION 06/20/2022 [facility] DATE CREATED AUTHOR AUTHOR'S ORGANIZ ATION 06/26/2022 [facility] DATE CREATED AUTHOR AUTHOR'S ORGANIZ ATION 04/29/2024 [facility] DATE CREATED AUTHOR AUTHOR'S ORGANIZ ATION 09/12/2024 [facility] DATE CREATED AUTHOR AUTHOR'S ORGANIZ ATION 09/16/2024 [facility] DATE CREATED AUTHOR AUTHOR'S ORGANIZ ATION 09/22/2024 [facility] <item><item><item><item><item><item><item> Privacy Markings (unrecogniz ed section and content) Section Author: Domingo Witt PROHIBITION ON REDISCLOSURE OF CONFIDENTIAL INFORMATION This notice accompanies a disclosure of information concerning a client made to you with the consent of such client. Section Author: Domingo Witt PROHIBITION ON REDISCLOSURE OF CONFIDENTIAL INFORMATION This notice accompanies a disclosure of information concerning a client made to you with the consent of such client. Section Author: Domingo Witt PROHIBITION ON REDISCLOSURE OF CONFIDENTIAL INFORMATION This notice accompanies a disclosure of information concerning a client made to you with the consent of such client. Section Author: Domingo Witt PROHIBITION ON REDISCLOSURE OF CONFIDENTIAL INFORMATION This notice accompanies a disclosure of information concerning a client made to you with the consent of such client. Section Author: Domingo Witt PROHIBITION ON REDISCLOSURE OF CONFIDENTIAL INFORMATION This notice accompanies a disclosure of information concerning a client made to you with the consent of such client. Section Author: Domingo Witt PROHIBITION ON REDISCLOSURE OF CONFIDENTIAL INFORMATION This notice accompanies a disclosure of information concerning a client made to you with the consent of such client. Section Author: Domingo Witt PROHIBITION ON REDISCLOSURE OF CONFIDENTIAL INFORMATION This notice accompanies a disclosure of information concerning a client made to you with the consent of such client. Care Teams (unrecognized sec tion and content) Team Status: Active Member Role Status Dates NON STAFF Primary Care Provider Active Team Status: Inactive Member Role Status Dates NON STAFF Primary Care Provider Active BRENDA WelchC Attending Provider Active Refrigeration Service Technician Relationship Specialty Start Date End Date Julián Conti MD PCP - General Family Medicine 09/23/22 Refrigeration Service Technician Relationship Specialty Start Date End Date Julián Conti MD PCP - General Family Medicine 09/23/22 Refrigeration Service Technician Relationship Specialty Start Date End Date Julián Conti MD PCP - General Family Medicine 09/23/22 Refrigeration Service Technician Relationship Specialty Start Date End Date Jul[place]án [place] [address] [place] [address] PCP - General Family Medicine 11/07/23 Refrigeration Service Technician Relationship Specialty Start Date End Date Jul[place]án [place] [address] [place] [address] PCP - General Family Medicine 11/07/23 Refrigeration Service Technician Relationship Specialty Start Date End Date Jul[place]án [place] [address] [place] [address] PCP - General Family Medicine 08/19/22 Refrigeration Service Technician Relationship Specialty Start Date End Date Jul[place]án [place] [address] [place] [address] PCP - General Family Medicine 08/19/22 Refrigeration Service Technician Relationship Specialty Start Date End Date Jul[place]án [place] [address] [place] [address] PCP - General Family Medicine 08/19/22 Refrigeration Service Technician Relationship Specialty Start Date End Date Jul[place]án [place] [address] PCP - General Family Medicine 08/19/22 Refrigeration Service Technician Relationship Specialty Start Date End Date Jul[place]án [place] [address] PCP - General Family Medicine 11/07/23 Refrigeration Service Technician Relationship Specialty Start Date End Date Julián [place] [address] PCP - General Family Medicine 11/07/23 Refrigeration Service Technician Relationship Specialty Start Date End Date Jul[place]án [place] [address] PCP - General Family Medicine 11/07/23 Refrigeration Service Technician Relationship Specialty Start Date End Date Jul[place]án [place] [address] PCP - General Family Medicine 11/07/23 Refrigeration Service Technician Relationship Specialty Start Date End Date Jul[place]án [place] [address] PCP - General Family Medicine 11/07/23 Refrigeration Service Technician Relationship Specialty Start Date End Date Jul[place]án [place] [address] PCP - General Family Medicine 11/07/23 Refrigeration Service Technician Relationship Specialty Start Date End Date Jul[place]án [place] [address] PCP - General Family Medicine 11/07/23 Refrigeration Service Technician Relationship Specialty Start Date End Date Julián [place] [address] [place] [address] PCP - General Family Medicine 11/07/23 Refrigeration Service Technician Relationship Specialty Start Date End Date Julián [place] [address] PCP - General Family Medicine 11/07/23 Refrigeration Service Technician Relationship Specialty Start Date End Date Jul[place]án [place] [address] PCP - General Family Medicine 11/07/23 Refrigeration Service Technician Relationship Specialty Start Date End Date Jul[place]án [place] [address] PCP - General Family Medicine 11/07/23 Refrigeration Service Technician Relationship Specialty Start Date End Date Jul[place]án [place] [address] PCP - General Family Medicine 11/07/23 Refrigeration Service Technician Relationship Specialty Start Date End Date Julián [place] [address] PCP - General Family Medicine 11/07/23 Refrigeration Service Technician Relationship Specialty Start Date End Date Julián Conti MD PCP - General Family Medicine 09/23/22 Refrigeration Service Technician Relationship Specialty Start Date End Date Julián Conti MD [address] [place] [address] PCP - General Family Medicine 09/23/22 Refrigeration Service Technician Relationship Specialty Start Date End Date Julián Conti MD [address] [place] [id number] PCP - General Family Medicine 11/07/23 Refrigeration Service Technician Relationship Specialty Start Date End Date Julián Conti MD [address] [place] [address] PCP - General Family Medicine 09/23/22 Refrigeration Service Technician Relationship Specialty Start Date End Date Julián Conti MD [address] [place], [place] [id number] PCP - General Family Medicine 11/07/23 Goals (unrecognized section and content) Goals may be documented in a n alternate sectionNot on filedocumented as of this encounterNot on filedocumented as of this encounter Reason for Visit (unrecogniz ed section and content) Reason Comments Follow-up Reason Comments 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-referred by salma cornejo-Pre-op examination-extremity lipectomy w ratna cornejo- date tbd -ekg every week at [facility] appt [facility] Specialty Diagnoses / Procedures Referred By Jayla cristobal Referred To Contact Cardiology Diagnoses Pre-op examination Ratna Cornejo MD [address] [address] [place] [address] [facility] [address] [facility] [place] [address] Referral ID Status Reason Start Date Expiration Date Visits Requested Visits Authorized [id number] Pending Review Specialty Services Required 3 01/18/2024 1 1 Specialty Diagnoses / Procedures Referred By Jayla cristobal Referred To Contact Diagnoses Pre-operative cardiovascular examination, high risk surgery Wander Rodriguez DO [address] [place] [address] Referral ID Status Reason Start Date Expiration Date Visits Re quested Visits Authorized [id number] 1 1 Reason Comments Post-op s/p ORIF L femur / n o xr / cristiane out Post-op Reason Onset Date Comments Hypotension 12/18/2023 Reason Onset Date Comments New Consult 12/18/2023 Reason Onset Date Comments Hospital Follow-up 12/19/2023 Reason Comments Follow-up EST PT F/U 3-4 SCHED W/ [place] [facility] [facility] Specialty Diagnoses / Procedures Referred By Contryan t Referred To Contact Cardiology Diagnoses Pre-op examination Ratna Cornejo MD [address] [place] [address], [address] [place] [address] [facility] [address] [place] [address] Referral ID Status Reason Start Date Expiration Date V isits Requested Visits Authorized [id number] Closed Specialty Services Required 01/18/2023 01/18/2024 1 1 Reason Onset Date Comments New Patient 12/29/2023 Reason Onset Date Comments new consult 01/30/2024 Management of pa tient vent. Reason Onset Date Comments Catheter replacement 01/30/2024 Reason Onset Date Comments Canceled Appt 02/24/2024 Reason Comments Follow-up EST PT F/U 4 MS L/S MS SCHED W/ ASMITA Scheduled Active and Recently Administ ered Medications (unrecognized section and content) Medication Order 11/09/2023 11/10/2023 11/11/2023 acetaminophen (TYLENOL EXTRA STRENGTH) tablet 1,000 mg 1,000 mg, oral, Every 8 hours, First dose on Tue11/08/23 at 1645 0045 (Given - Provider: Anne Joshi RN)0906 (Given - Provider: Gianni Barajas)1644 (Given - Provider: Gianni Barajas) 0045 (Given - Provider: Anne Joshi RN)0922 (Given - Provider: Gianni Barajas)1655 (Given - Provider: Gianni Barjaas) 0027 (Given - Provider: Vanessa Bear RN)0856 (Given - Provider: Roberth Fuentes RN)1619 (Given - Provider: Roberth Fuentes RN) alteplase (CATHFLO) injection 2 mg (COMPLETED) 2 mg, intravenous, Once, On Tue11/09/23 at 1000, For 1 dose, Mix with 2.2mL of sterile water. Gently mix (Do not shake) until medication dissolved. Draw up the amount to match the arterial lumen. Post dialysis Look-alike/sound-alike medication - verify indication for use. 1304 (Given - Provider: Ofelia Rosa RN) alteplase (CATHFLO) injection 2 mg (COMPLETED) 2 mg, intravenous, Once, On Tue11/09/23 at 1000, For 1 dose, Mix with 2.2mL of sterile water. Gently mix (Do not shake) until medication dissolved. Draw up the amount to match the venous lumen. Post dialysis Look-alike/sound-alike medication - verify indication for use., Indications: vascular access thrombosis 1303 (Given - Provider: Ofelia oRsa RN) atorvastatin (LIPITOR) tablet 20 mg 20 mg, oral, Daily, First dose on Tue11/08/23 at 1800, Look-alike/sound-alike medication - verify indication for use. 0906 (Given - Provider: Gianni Barajas) 0922 (Given - Provider: Gianni Barajas) 0856 (Given - Provider: Roberth Fuentes RN) chlorhexidine (PERIDEX) 0.12 % solution 15 mL 15 mL, mouth/throat, 2 times daily, First dose on Tue11/08/23 at 0800, Swish undiluted for 30 seconds, then spit. 0737 (Given - Provider: Wade Black RCP)2108 (Given - Provider: Idalia Sheikh RCP) 0833 (Given - Provider: Radha Hicks RCP)2119 (Given - Provider: Idalia Sheikh RCP) 0912 (Given - Provider: Radha Hicks RCP)1999 (Due) cholecalciferol (vitamin D3) tablet 2,000 Units 2,000 Units, oral, Daily, First dose on Tue11/08/23 at 1730 0906 (Given - Provider: Gianni Barajas) 0924 (Given - Provider: Gianni Barajas) 0856 (Given - Provider: Roberth Fuentes RN) cyclobenzaprine (FLEXERIL) tablet 5 mg (CANCELED) 5 mg, oral, 3 times daily, First dose on Tue11/07/23 at 2200 0549 (Given - Provider: Anne Joshi RN) darbepoetin linda-polysorbate (ARANESP) injection 100 mcg 100 mcg, subcutaneous, Weekly, First dose on Tue11/09/23 at 1200, Indications: ESRD on Dialysis 1131 (Given - Provider: Gianni Barajas) FLUoxetine (PROzac) capsule 30 mg 30 mg, oral, Daily, First dose on Tue11/07/23 at 2100, Look-alike/sound-alike medication - verify indication for use. 0906 (Not Given - Provider: Gianni Barajas - Reason: NPO) 0924 (Given - Provider: Gianni Barajas) 0856 (Given - Provider: Roberth Fuentes, [place]) gabapentin (NEURONTIN) capsule 100 mg 100 mg, oral, 3 times daily, First dose on Tue11/09/23 at 0845, Look-alike/sound-alike medication - verify indication for use. 0845 (Not Given - Provider: Gianni Barajas - Reason: Other - Comment: Patient receiving dialysis.)1351 (Given - Provider: Gianni Barajas)2226 (Given - Provider: Anne Joshi RN) 0531 (Given - Provider: Anne Joshi RN)1355 (Given - Provider: Gianni Barajas)2130 (Given - Provider: Vanessa Bear, [place]) 0609 (Given - Provider: Vanessa Bear, [place])1504 (Given - Provider: Roberth Fuentes, [place])2200 (Due) heparin (porcine) injection 5,000 Units (CANCELED) 5,000 Units, subcutaneous, Every 8 hours scheduled, First dose on Tue11/09/23 at 0600, Creatinine clearance less than 10 mL/min, immediate post-op patient, or increased risk of bleeding. Notify prescriber if INR greater than 1.9, hemoglobin less than 10 mg/dL, aPTT greater than 40 seconds, and/or platelet count less than 100,000/mm Look-alike/sound-alike medication - verify indication for use. Observe for bleeding. 0549 (Given - Provider: Anne Joshi RN)1350 (Given - Provider: Gianni Barajas)2226 (Given - Provider: Anne Joshi RN) 0531 (Given - Provider: Anne Joshi RN) heparin (porcine) injection 7,500 Units 7,500 Units, subcutaneous, Every 8 hours scheduled, First dose (after last modification) on Ivonne 11/10/23 at 1400, Creatinine clearance less than 10 mL/min, immediate post-op patient, or increased risk of bleeding. Notify prescriber if INR greater than 1.9, hemoglobin less than 10 mg/dL, aPTT greater than 40 seconds, and/or platelet count less than 100,000/mm Look-alike/sound-alike medication - verify indication for use. Observe for bleeding. 1353 (Given - Provider: Gianni Barajas)2130 (Given - Provider: Vanessa Bear RN) 0545 (Given - Provider: Vanessa Bear RN)1505 (Given - Provider: Roberth Fuentes RN)2200 (Due) insulin lispro (HumaLOG) injection 2-10 Units 2-10 Units, subcutaneous, Every 6 hours, First dose on Tue11/07/23 at 2100, Daytime hyperglycemia dosing. For blood glucose 151-200 mg/dL, give 2 units. For blood glucose 201-250 mg/dL, give 4 units. For blood glucose 251-300 mg/dL, give 6 units. For blood glucose 301-350 mg/dL, give 8 units. For blood glucose 351-400 mg/dL, give 10 units. Give even if NPO or meals skipped. Do NOT give more often then every 4 hours when NPO. Notify prescriber if blood glucose greater than 400 mg/dL. Look-alike/sound-alike medication - verify indication for use. Prime with 2 units of insulin prior to administration. Prandial/supplemental Insulin. Pre-filled pens stable 28 days at room temperature. Insulin lispro should be administered within 15 minutes before or immediately after a meal. 0542 (Given - Provider: Anne Joshi RN - Comment: bg 158)1100 (Not Given - Provider: Gianni Barajas - Reason: Order parameters not met)1700 (Not Given - Provider: Gianni Barajas - Reason: Order parameters not met)2300 (Not Given - Provider: Anne Jsohi RN - Reason: Order parameters not met - Comment: BG 87) 0500 (Not Given - Provider: Anne Joshi RN - Reason: Order parameters not met - Comment: bg 142)1100 (Not Given - Provider: Gianni Barajas - Reason: Order parameters not met - Comment: 139)1700 (Not Given - Provider: Gianni Barajas - Reason: Order parameters not met)2336 (Given - Provider: Vanessa Bear RN) 0500 (Not Given - Provider: Vanessa Bear RN - Reason: Order parameters not met - Comment: BS 132)1100 (Not Given - Provider: Roberth Fuentes RN - Reason: Order parameters not met - Comment: BG 126)1723 (Given - Provider: Roberth Fuentes RN - Comment: BG 206)2300 (Due - Provider: [place] Todd [facility]) lacosamide (VIMPAT) 10 mg/mL solution 50 mg 50 mg, nasogastric, 2 times daily, First dose on Tue11/09/23 at 1000 1130 (Given - Provider: Gianni Barajas) 0000 (Given - Provider: Anne Joshi RN)0923 (Given - Provider: Gianni Barajas)2211 (Given - Provider: Vanessa Bear RN) 0906 (Given - Provider: Roberth Fuentes RN)2100 (Due) levETIRAcetam (KEPPRA) tablet 500 mg 500 mg, oral, 3 times daily, First dose on Tue11/07/23 at 2200, Look-alike/sound-alike medication - verify indication for use. 0550 (Given - Provider: Anne Joshi RN)1352 (Given - Provider: Gianni Barajas)2226 (Given - Provider: Anne Joshi RN) 0532 (Given - Provider: Anne Joshi RN)1355 (Not Given - Provider: Gianni Barajas - Reason: Other - Comment: Dialysis)2131 (Given - Provider: Vanessa Bear RN) 0609 (Given - Provider: Vanessa Bear RN)1504 (Given - Provider: Roberth Fuentes RN)2200 (Due) levothyroxine (SYNTHROID, LEVOTHROID) tablet 175 mcg 175 mcg, oral, Daily, First dose on Tue11/08/23 at 0600, Look-alike/sound-alike medication. Verify indication for use Administer on empty stomach at least ONE hour before or TWO hours after food Enteral Feeding: For 7 days or less of tube feeding- do NOT hold tube feedings, after 7 days- hold tube feedings ONE hour before and ONE hour after administration DOES NOT APPLY TO NEONATES Monitor thyroid function tests weekly 0550 (Given - Provider: Anne Joshi RN) 0532 (Given - Provider: Anne Joshi RN) 0610 (Given - Provider: Vanessa Bear RN) magnesium oxide (MAGOX) tablet 400 mg 400 mg, oral, Daily, First dose on Tue11/08/23 at 1230 0906 (Given - Provider: Gianni Barajas) 0924 (Given - Provider: Gianni Barajas) 0856 (Given - Provider: Roberth Fuentes RN) methocarbamoL (ROBAXIN) tablet 500 mg 500 mg, oral, 3 times daily, First dose on Tue11/09/23 at 0845 1130 (Given - Provider: Gianni Barajas)1351 (Given - Provider: Gianni Barajas)2226 (Given - Provider: Anne Joshi RN) 0532 (Given - Provider: Anne Joshi RN)1355 (Given - Provider: Gianni Barajas)2132 (Given - Provider: Vanessa Bear RN) 0611 (Given - Provider: Vanessa Bear RN)1504 (Given - Provider: Roberth Fuentes RN)2200 (Due) midodrine (PROAMATINE) tablet 10 mg 10 mg, g-tube, 3 times daily, First dose (after last modification) on Tue11/11/23 at 1400, Hold for SBP greater than 130. Look-alike/sound-alike medication - verify indication for use. 1504 (Given - Provider: Roberth Fuentes RN)2200 (Due) midodrine (PROAMATINE) tablet 5 mg (CANCELED) 5 mg, g-tube, 3 times daily, First dose on Tue11/08/23 at 1400, Hold for SBP greater than 130. Look-alike/sound-alike medication - verify indication for use. 0549 (Given - Provider: Anne Joshi RN)1351 (Given - Provider: Gianni Barajas)2226 (Given - Provider: Anne Joshi RN) 0531 (Given - Provider: Anne Joshi RN)1355 (Given - Provider: Gianni Barajas)2135 (Given - Provider: Vanessa Bear, [place]) midodrine (PROAMATINE) tablet 5 mg (CANCELED) 5 mg, g-tube, 3 times daily, First dose (after last modification) on Tue11/11/23 at 0600, Hold for SBP greater than 130. Look-alike/sound-alike medication - verify indication for use. 0612 (Given - Provider: Vanessa Bear, [place]) pantoprazole (PROTONIX) injection 40 mg 40 mg, intravenous, Every 24 hours scheduled, First dose on Tue11/11/23 at 0900, Look-alike/sound-alike medication - verify indication for use., Indication: Other (GLEN) 0856 (Given - Provider: Roberth Fuentes RN) risperiDONE (RisperDAL) tablet 1 mg 1 mg, oral, Daily, First dose on Tue11/07/23 at 2100, Look-alike/sound-alike medication - verify indication for use. 0907 (Given - Provider: Gianni Barajas) 0924 (Given - Provider: Gianni Barajas) 0856 (Given - Provider: Roberth Fuentes RN) sevelamer carbonate (RENVELA) packet 3,200 mg 3,200 mg, nasogastric, 3 times daily with meals, First dose on Tue11/10/23 at 0830, Look-alike/sound-alike medication - verify indication for use. Give with meals. Administer other drugs 1 hour before or 3 hours after. Mix powder with water prior to administration. Mix with 30 mL of water. Stir vigorously to suspend just prior to drinking; powder does not dissolve. Drink within 30 minutes of preparing or resuspend prior to drinking. Note: for 400 mg (half packet doses) mix half packet with 30 mL of water. Enteral Feeding: Lanthanum and sevelamer TABLETS are not recommended to be crushed and administered in feeding tube due to risk of clogging tube Alternative: sevelamer carbonate suspension/packets or calcium carbonate per tube 0923 (Given - Provider: Gianni Barajas)1254 (Given - Provider: Gianni Barajas)1655 (Given - Provider: Gianni Barajas) 0910 (Given - Provider: Roberth Fuentes RN)1200 (Given - Provider: Roberth Fuentes RN)1620 (Given - Provider: Roberth Fuentes RN) sodium chloride 0.9 % flush 10 mL 10 mL, intravenous, Every 96 hours, First dose on Tue11/07/23 at 1800, Hemodialysis, Arterial Lumen. Aspirate lumen and discard volume THEN 0.9% Sodium Chloride 10 mL IVP THEN 4% sodium citrate (0.2 grams/5 mL) IVP equal to lumen volume every 96 hours. (Direct Care RN: flush and change caps every 96 hours) 1800 (Canceled Entry - Provider: Roberth Fuentes RN) sodium chloride 0.9 % flush 10 mL 10 mL, intravenous, Every 96 hours, First dose on Tue11/07/23 at 1800, Hemodialysis, Venous Lumen. Aspirate lumen and discard volume THEN 0.9% Sodium Chloride 10 mL IVP THEN 4% sodium citrate (0.2 grams/5 mL) IVP equal to lumen volume every 96 hours. (Direct Care RN: Flush and change caps every 96 hours) 1800 (Canceled Entry - Provider: Roberth Fuentes RN) sodium citrate 4 % (3 mL) flush 2 mL 2 mL, intravenous, Every 96 hours, First dose on Tue11/07/23 at 1800, Hemodialysis, Arterial Lumen. IVP equal to lumen volume, up to a maximum of 2 mL, every 96 hours. (Direct Care RN: flush and change caps every 96 hours) 1800 (Canceled Entry - Provider: Roberth Fuentes RN) sodium citrate 4 % (3 mL) flush 2 mL 2 mL, intravenous, Every 96 hours, First dose on Tue11/07/23 at 1800, Hemodialysis, Venous Lumen. IVP equal to lumen volume, up to a maximum of 2 mL, every 96 hours. (Direct Care RN: flush and change caps every 96 hours) 1800 (Canceled Entry - Provider: Roberth Fuentes RN) sodium hypochlorite (DAKIN'S 1/4 STRENGTH) 0.125 % external solution 1 Application 1 Application, topical, 2 times daily, First dose on Tue11/09/23 at 1300, To abdominal wound per wound care instructions. 1244 (Given - Provider: Gianni Barajas)2100 (Given - Provider: Anne Joshi, [place]) 1254 (Given - Provider: Gianni Barajas)2129 (Given - Provider: Vanessa Bear, [place]) 1620 (Given - Provider: Roberth Fuentes, [place])2100 (Due) sodium zirconium cyclosilicate (LOKELMA) packet 10 g (CANCELED) 10 g, oral, Daily with lunch, First dose on Tue11/07/23 at 1715, Empty entire contents of the packet(s) into a glass with 3 tablespoons (45 mL) or more water. Stir well and drink immediately; if powder remains in the glass, add water, stir and drink immediately; repeat until no powder remains. Administer other oral medications 2 or more hours before or 2 hours after dose. 1200 (Given - Provider: Gianni Barajas) sterile water (PF) injection 4.4 mL 4.4 mL, injection, Once, On Tue11/09/23 at 1300, For 1 dose, Used to reconstitute Alteplase. 1300 (Due) vancomycin (VANCOCIN) 1,500 mg in sodium chloride 0.9 % 500 mL IVPB-MBP (COMPLETED) 1,500 mg, intravenous, at 333 mL/hr, Administer over 90 Minutes, Every 12 hours, First dose on Tue11/09/23 at 0300, For 1 dose, Pharmacy to adjust per renal function. Administer 12 hours after pre-op dose for total of 2 doses including pre-op dose. For patient weight 100 kg or greater. Ok to discontinue post op vanco if patient's renal function is low enough that initial preop dose is sufficient - please inform ordering provider if order is discontinued - thanks! VESICANT (YELLOW) ADD-VANTAGE/MBP- Discard 24 hours after activating; dissolve drug prior to administration, Indication: Surgical prophylaxis 0323 (New Bag - Provider: Anne Joshi RN)0453 (Stop Bag - Provider: Anne Joshi RN) Continuous Medication Order 11/09/2023 11/10/2023 11/11/2023 sodium chloride 0.9 % infusion (CANCELED) 3 mL/hr, intra-arterial, Continuous, Starting on Tue11/08/23 at 0415 0600 (Stop Bag - Provider: Roberth Fuentes RN)181 (Rate/Dose Verify - Provider: Gianni Barajas)2106 (Stop Bag - Provider: Idalia Sheikh RCP)2107 (New Bag - Provider: Idalia Sheikh RCP) sodium chloride 0.9 % infusion () 250 mL, hemodialysis, at 900 mL/hr, Continuous, Starting on Tue11/09/23 at 0815, Hemodialysis, as priming solution for hemodialysis tubing. 0952 (New Bag - Provider: Ofelia Rosa RN)0953 (Stop Bag - Provider: Ofelia Rosa RN) PRN Medication Order 11/09/2023 11/10/2023 11/11/2023 albumin human 25 % IVPB Premix 25 g 25 g, intravenous, As needed, with hemodialysis, may give up to 2 doses for sbp<100, Starting on Tue11/09/23 at 0811, Hemodialysis, Do not exceed 1 mL/minute in patients with normal plasma volume; 2 to 3 mL/minute in patients with hypoproteinemia For BUMINATE, administer using a 15 micron or smaller filter. A filter is NOT required for administration by other brands., Indication: Symptomatic Hypotension During Hemodialysis 0911 (New Bag - Provider: Ofelia Rosa RN)0920 (Stop Bag - Provider: Ofelia Rosa RN)1133 (New Bag - Provider: Ofelia Rosa RN)1206 (Stop Bag - Provider: Ofelia Rosa RN) 1425 (New Bag - Provider: Brandi Boss RN)1435 (Stop Bag - Provider: Brandi Boss RN)1518 (New Bag - Provider: Brandi Boss RN)1531 (Stop Bag - Provider: Brandi Boss RN) 0817 (New Bag - Provider: Kadeem Zeng RN)0900 (Stop Bag - Provider: Kadeem Zeng RN) albuterol (ACCUNEB) nebulizer solution 0.63 mg 0.63 mg, nebulization, Every 6 hours PRN, wheezing, Starting on Tue11/07/23 at 2023, Implement INPATIENT/ED Bronchodilator Clinical Practice Guidelines? Yes, Document: \[facility].org\epic \EPIC_Reference\Orders\Re spiratory Care Guidelines\CPG Bronchodilator 2020.pdf barium sulfate (E-Z-PAQUE) 96 % (w/w) powder 176 g 176 g, oral, Once in imaging, contrast, barium sulfate (E-Z-PAQUE) 96 % (w/w) powder, Starting on Tue11/10/23 at 1016, For 1 dose barium sulfate (VARIBAR HONEY) 40 % (w/v) 29% (w/w) suspension 60 mL 60 mL, oral, Once in imaging, contrast, barium sulfate (VARIBAR HONEY) 40 % (w/v) 29% (w/w) suspension, Starting on Tue11/10/23 at 1016, For 1 dose barium sulfate (VARIBAR NECTAR) 40 % (w/v) suspension 10 mL (COMPLETED) 10 mL, oral, Once in imaging, contrast, barium sulfate (VARIBAR NECTAR) 40 % (w/v) suspension, Starting on Tue11/10/23 at 1016, For 1 dose 1024 (Given - Provider: DANILO Kulkarni) barium sulfate (VARIBAR PUDDING) 40 % (w/v), 30% (w/w) oral paste 60 mL (COMPLETED) 60 mL, oral, Once in imaging, contrast, barium sulfate (VARIBAR PUDDING) 40 % (w/v), 30% (w/w) oral paste, Starting on Tue11/10/23 at 1016, For 1 dose 1024 (Given - Provider: DANILO Kulkarni) barium sulfate (VARIBAR THIN HONEY) 40 %(w/v), 29% (w/w)(1500 CPS) suspension 20 mL (COMPLETED) 20 mL, oral, Once in imaging, contrast, Radiology, Starting on Tue11/10/23 at 1016, For 1 dose 1024 (Given - Provider: DANILO Kulkarni) barium sulfate (VARIBAR THIN) 81 % (w/w) powder 148 g (COMPLETED) 148 g, oral, Once in imaging, contrast, barium sulfate (VARIBAR THIN) 40 % (w/v) powder, Starting on Tue11/10/23 at 1016, For 1 dose 1024 (Given - Provider: DANILO Kulkarni) HYDROmorphone (PF) (DILAUDID) injection 0.5 mg 0.5 mg, intravenous, Every 2 hour PRN, severe pain - pain scale 7-10, Starting on Tue11/08/23 at 1800, If IV push, administer over over 2 to 3 minutes. Patient denies any adverse reactions to opioids in the past Look-alike/sound-alike medication - verify indication for use. midodrine (PROAMATINE) tablet 10 mg 10 mg, oral, As needed, Hemodialysis - PRN at initiation and midway through dialysis session, Starting on Tue11/08/23 at 0113, Hemodialysis, Look-alike/sound-alike medication - verify indication for use. 1000 (Given - Provider: Ofelia Rosa RN)1201 (Given - Provider: Ofelia Rosa RN) 1505 (Given - Provider: Brandi Boss RN)2210 (Given - Provider: Vanessa Bear RN) 0805 (Given - Provider: Kadeem Zeng, RN)1042 (Given - Provider: Kadeem Zeng RN) oxyCODONE (ROXICODONE) 5 mg/5 mL solution 5 mg 5 mg, oral, Every 4 hours PRN, moderate pain - pain scale 4-6, Starting on Tue11/08/23 at 1759, Patient denies any adverse reactions to opioids in the past Look-alike/sound-alike medication - verify indication for use. sodium chloride 0.9 % flush 10 mL 10 mL, intravenous, As needed, line care, Starting on Tue11/07/23 at 1754, Hemodialysis, Arterial Lumen. Before use aspirate lumen and discard lumen volume THEN 0.9% Sodium Chloride 10 mL IVP. (stock saw operator: flush at beginning of each hemodialysis treatment). 0951 (Given - Provider: Ofelia Rosa RN) 1425 (Given - Provider: Brandi Boss, [place]) sodium chloride 0.9 % flush 10 mL 10 mL, intravenous, As needed, line care, Starting on Tue11/07/23 at 1754, Hemodialysis, Arterial Lumen. 0.9% Sodium Chloride 10 mL IVP THEN 4% sodium citrate (0.2 grams/5 mL) IVP equal to lumen volume after use. (stock saw operator: flush and change caps after each hemodialysis treatment) 1234 (Given - Provider: Ofelia Rosa RN) 1739 (Given - Provider: Brandi Boss RN) 0820 (Given - Provider: Kadeem Zeng RN)1229 (Given - Provider: Kadeem Zeng RN) sodium chloride 0.9 % flush 10 mL 10 mL, intravenous, As needed, line care, Starting on Tue11/07/23 at 1754, Hemodialysis, Venous Lumen. Before use aspirate lumen and discard lumen volume THEN 0.9% Sodium Chloride 10 mL IVP. (stock saw operator: flush at beginning of each hemodialysis treatment) 0950 (Given - Provider: Ofelia Rosa RN) 1425 (Given - Provider: Brandi Boss RN) 0821 (Given - Provider: Kadeem Zeng RN)1229 (Given - Provider: Kadeem Zeng, RN) sodium chloride 0.9 % flush 10 mL 10 mL, intravenous, As needed, line care, Starting on Tue11/07/23 at 1754, Hemodialysis, Venous Lumen. 0.9% Sodium Chloride 10 mL IVP THEN 4% sodium citrate (0.2 grams/5 mL) IVP equal to lumen volume after use. (stock saw operator: flush and change caps after each hemodialysis treatment) 1234 (Given - Provider: Ofelia Rosa RN) 1738 (Given - Provider: Brandi Boss RN) sodium citrate 4 % (3 mL) flush 2 mL 2 mL, intravenous, As needed, line care, Starting on Tue11/07/23 at 1754, Hemodialysis, Arterial Lumen. IVP equal to lumen volume, up to a maximum of 2 mL, after use. (stock saw operator: flush and change caps after each hemodialysis treatment) 1739 (Given - Provider: Brandi Boss RN) 1230 (Given - Provider: Kadeem Zeng, RN) sodium citrate 4 % (3 mL) flush 2 mL 2 mL, intravenous, As needed, line care, Starting on Tue11/07/23 at 1754, Hemodialysis, Venous Lumen. IVP equal to lumen volume, up to a maximum of 2 mL, after use. (stock saw operator: flush and change caps after each hemodialysis treatment) 1738 (Given - Provider: Brandi Boss RN) 1229 (Given - Provider: Kadeem Zeng RN) Dialysis Access Sites (unrec ognized section and content) Type Status Location Placement Date Removal Da te Hemodialysis Catheter Double Cuffed Right Internal Jugular Active Right Neck (side) - Anterior Hemodialysis Catheter Triple 10/03/22 Cuffed Right Subclavian Active Right Breast - Upper 10/03/2022 FOR RECORDS PERTAINING TO PATIENTS WHO ARE OR HAVE BEEN ENROLLED IN A CHEMICAL DEPENDENCY/SUBSTANCEABUSE PROGRAM, SOME INFORMATION MAY BE OMITTED. This clinical summary was aggregated from multiple sources. Caution should be exercised in using it in the provision of clinical care. This summary normalizes information from multiple sources, and as a consequence, information in this document may materially change the coding, format and clinical context of patient data. In addition, data may be omitted in some cases. CLINICAL DECISIONS SHOULD BE BASED ON THE PRIMARY CLINICAL RECORDS. [facility] [employer] [facility]. provides no warranty or guarantee of the accuracy or completeness of information in this document.
--- NOTE | 2024-12-03 09:45 | CT_ITS ---
The [address] [address] Patient Name: MATTHEW SHINE MRN: [id number] date: 1965 Sex: F Assigned Patient Location: CT Current Patient Location: CT Accession/Order Number: [id number] Exam Date: 12/03/2024 09:20 Report Date: 12/03/2024 10:59 At the request of: DOMINGO TOBIAS NP Procedure: CT abdomen pelvis wo con CT ABDOMEN AND PELVIS WITHOUT CONTRAST COMPARISON: 01/16/2021 CLINICAL DATA: Left lower quadrant abdominal wound Spiral images were obtained through the abdomen and pelvis without contrast. This CT exam was performed using one or more following dose reduction techniques: Automated exposure control, adjustment of the mA and/or kV according to patient size, or use of iterative reconstruction technique.. Assessment is limited by patient's large body habitus. Limited cuts through the lung bases show atelectatic and/or infiltrative change at the lower lobes, greater on the left. A trace amount pleural fluid is seen. The gallbladder is surgically absent. No common duct stones are identified. No intrahepatic masses are seen. The spleen and pancreas show no acute findings. Left adrenal limb thickening is again noted. There is renovascular disease which slightly limits evaluation for stones. No hydronephrosis is present. A similar 2.6 cm exophytic hypodensity is present at the lower pole of the right kidney, not fully evaluated without contrast. There is plaque at the aorta and iliac arteries. No enlarged lymph nodes or ascites are seen. There is subcutaneous edema. Moderate air and food debris are seen within the stomach. There are some air-containing small bowel loops that are borderline in caliber. There is air and stool along the colon. Degenerative changes are present at the spine. Images through the pelvis show normal caliber small bowel loops. The appendix is not definitely seen. There is stool at the distal colon. No diverticular disease is noted. There is suggestion of prior ventral hernia repair at the upper pelvis on the left. Residual hernia containing small bowel is still suspected inferior to the repair. The subcutaneous air at this site is probably within the small bowel and patient's wound may be lateral to it. Clinical correlation is recommended. There is subcutaneous edema. A left adnexal cyst is still seen, currently measuring 4.5 cm, previously 3.4 cm. The urinary bladder is not well-distended for assessment. No pelvic ascites is present. CT/CT abdomen pelvis wo con IMPRESSION: LIMITED STUDY DUE TO PATIENT BODY HABITUS AND ABSENCE OF CONTRAST. BIBASILAR PLEURAL PARENCHYMAL CHANGE, GREATER IN THE LEFT. CONTINUED INDETERMINANT RIGHT RENAL HYPODENSITY. NO BOWEL OR URINARY TRACT OBSTRUCTION SUGGESTING PREVIOUS VENTRAL HERNIA REPAIR WITH CONTINUED RECURRENT HERNIA CONTAINING NONOBSTRUCTED SMALL BOWEL. LEFT ADNEXAL CYST, SLIGHTLY LARGER. SUBCUTANEOUS EDEMA. Impression dictated by: Ileana Rothman M.D. 12/03/2024 10:59 AM Dictation Location: [place] [address] Electronically authenticated by: [id number] Y Date: 12/03/2024 10:59
== END 2024-12-03 08:21 | disposition home or self-care (01) ==
LOC: CT 08:20
PROVIDERS: Visit Provider Nurse Practitioner Family
DX: R11.0 Nausea (principal); L98.9 Disorder of the skin and subcutaneous tissue, unspecified; R10.32 Left lower quadrant pain
CPT/HCPCS: 74176